=== PATIENT | male | born 1940 | race Caucasian/White ===

== ENCOUNTER → 2017-04-09 | Outpatient (CLI) | payer OTHER ==
[~2017-04-09] MED LIST: ATV1 PO; CMD5 PO; DICY10CA55 PO; ERYTHROMYCIN 2% TOP; GLUTAMINE PO; HYOS1TAB SL; LPR25 PO; LVT/20 PO; PANT40TA PO; RAPAFLO PO; RMR15 PO; TRIA3AER NAE; ZOLP10TA PO; [UNRECOGNIZED DRUG - OTHER] PO; align PO
[2017-04-09 14:36] LABS: PROSTATE SPECIFIC ANTIGEN 3.16 ng/ml (0.000-4.000)
== END | disposition home or self-care (01) ==
LOC: C.LABBC 11:05
PROVIDERS: ATTEND Urology
DX: N40.1 Benign prostatic hyperplasia with lower urinary tract symptoms (principal); R31.0 Gross hematuria; N20.0 Calculus of kidney

== ENCOUNTER 2018-12-01 08:22 | Inpatient (IN) ==
--- NOTE | 2018-11-12 14:42 | PAT Medication Instructions ---
Medication Instructions Date of Service November 12, 2018 Home Medications albuterol sulfate [ProAir HFA] 1 puff INHALATION Q6H PRN allopurinol [Zyloprim] 100 mg PO QAM atorvastatin [Lipitor] 10 mg PO QAM bupropion HCl [Wellbutrin XL] 150 mg PO HS bupropion HCl [Wellbutrin XL] 300 mg PO QAM doxycycline hyclate 50 mg PO HS furosemide 20 mg PO DAILY PRN lorazepam [Ativan] 0.5 mg PO BID PRN meclizine 25 mg PO QAM melatonin 5 mg PO HS metoprolol succinate [Toprol XL] 25 mg PO QAM mometasone [Nasonex] 2 spray INTRANASAL DAILY nortriptyline 20 mg PO HS pantoprazole [Protonix] 40 mg PO QAM potassium chloride 10 meq PO DAILY PRN tamsulosin [Flomax] 0.4 mg PO HS warfarin 2.5 mg PO 3XWK warfarin 5 mg PO 4XWK ASK your prescriber and surgeon warfarin 2.5 mg PO 3XWK warfarin 5 mg PO 4XWK DO NOT take the morning of surgery furosemide 20 mg PO DAILY PRN potassium chloride 10 meq PO DAILY PRN Take morning of surgery With a small sip of water, OTHERWISE NOTHING TO EAT OR DRINK AFTER MIDNIGHT: albuterol sulfate [ProAir HFA] 1 puff INHALATION Q6H PRN (use if needed; please bring with you to hospital day of surgery if possible) allopurinol [Zyloprim] 100 mg PO QAM atorvastatin [Lipitor] 10 mg PO QAM bupropion HCl [Wellbutrin XL] 300 mg PO QAM lorazepam [Ativan] 0.5 mg PO BID PRN (if needed) meclizine 25 mg PO QAM metoprolol succinate [Toprol XL] 25 mg PO QAM mometasone [Nasonex] 2 spray INTRANASAL DAILY pantoprazole [Protonix] 40 mg PO QAM Take evening before surgery albuterol sulfate [ProAir HFA] 1 puff INHALATION Q6H PRN (if needed) bupropion HCl [Wellbutrin XL] 150 mg PO HS doxycycline hyclate 50 mg PO HS furosemide 20 mg PO DAILY PRN (if needed) lorazepam [Ativan] 0.5 mg PO BID PRN (if needed) melatonin 5 mg PO HS nortriptyline 20 mg PO HS potassium chloride 10 meq PO DAILY PRN (if needed) tamsulosin [Flomax] 0.4 mg PO HS Other Notes If you have any questions please call us at [phone] or [phone] or [phone] or [phone]
--- NOTE | 2018-11-13 10:38 | Anesthesiology Consultation ---
Date of Service November 13, 2018 Assessment & Plan (1) Encounter for pre-operative examination: - Check coags AM DOS (patient states advised by surgeon/presciber to hold warfarin 5 days prior to surgery) - Cardio= 07/16/18= Fixed apical defect on most recent stress test "unchanged compared to 2011." Discussed addition of lisinopril but states that since his BP has "been well controlled" that decision to not start. F/U 6 months. Chart Review Chart Review: Acceptable Risk for Surgery and Patient seen in Pre Admission Testing Teaching & Discussion Pre-Anesthesia Teaching/Discussion Notes: Instructed NPO after midnight before surgery,except medications with 15 cc of water. Medication instructions provided according to the PAT guidelines. History Surgery Operation Date: 12/01/18 07:00 Proposed Procedures p Right Total Knee Replacement - Dimas Ashby MD Height/Weight Height: 5 ft 11 in Weight: 113.2 kg Allergies Allergy/AdvReac Type Severity Reaction Status Date / Time No Known Allergies Allergy Unknown Verified 11/10/18 07:29 Medications Home Medications Medication Instructions Recorded Confirmed Last Taken albuterol sulfate [ProAir HFA] 1 puff INHALATION Q6H PRN 11/10/18 11/10/18 Unknown allopurinol [Zyloprim] 100 mg PO QAM 11/10/18 11/10/18 Unknown atorvastatin [Lipitor] 10 mg PO QAM 11/10/18 11/10/18 Unknown bupropion HCl [Wellbutrin XL] 150 mg PO 11/10/18 11/10/18 Unknown bupropion HCl [Wellbutrin XL] 300 mg PO QA 11/10/18 11/10/18 Unknown doxycycline hyclate 50 mg PO 11/10/18 11/10/18 Unknown furosemide 20 mg PO DAILY PRN 11/10/18 11/10/18 Unknown lorazepam [Ativan] 0.5 mg PO BID PRN 11/10/18 11/10/18 Unknown meclizine 25 mg PO QAM 11/10/18 11/10/18 Unknown melatonin 5 mg PO 11/10/18 11/10/18 Unknown metoprolol succinate [Toprol XL] 25 mg PO QA 11/10/18 11/10/18 Unknown mometasone [Nasonex] 2 spray INTRANASAL DAILY 11/10/18 11/10/18 Unknown nortriptyline 20 mg PO HS 11/10/18 11/10/18 Unknown pantoprazole [Protonix] 40 mg PO QAM 11/10/18 11/10/18 Unknown potassium chloride 10 meq PO DAILY PRN 11/10/18 11/10/18 Unknown tamsulosin [Flomax] 0.4 mg PO HS 11/10/18 11/10/18 Unknown warfarin 2.5 mg PO 3XWK 11/10/18 11/10/18 Unknown warfarin 5 mg PO 4XWK 11/10/18 11/10/18 Unknown Past Medical History Medical History Acne ON DOXYCYCLINE Anxiety Asthma STABLE Atrial fibrillation ON WARFARIN BPH (benign prostatic hyperplasia) Depression Diverticular disease DIVERTICULITIS S/P PERFORATION/COLON RESECTION (2005) GERD (gastroesophageal reflux disease) Gout Hearing deficit BILATERAL AIDES Hyperlipidemia Hypertension IBS (irritable bowel syndrome) LBBB (left bundle branch block) CHRONIC Obesity Osteoarthritis Sciatica Sleep apnea CPAP Vertigo Past Family History Family History Mother Family hx of colon cancer Family history of diabetes mellitus Past Surgical History Surgical History History of appendectomy History of bowel resection DIVERTICULITIS S/P PERFORATION/COLON RESECTION (2005) History of colonoscopy History of colostomy SUBSEQUENT REVERSAL History of colostomy reversal History of endoscopic sinus surgery History of esophagogastroduodenoscopy (EGD) History of tonsillectomy Past Anesthesia History No Hx of Anesthesia Complications and No Family Hx of Anesthesia Complications History of PONV No Motion Sickness Screening History of Motion Sickness: No Social History Smoking Status: Former smoker tobacco type: cigarettes Do You Dip or Chew Tobacco: No Smoking End Date: QUIT AT AGE 38; PRIOR 3/4PPD X 15+ YEARS Hx Alcohol Use: No Hx Substance Use: No substance use type: does not use Exercise / Class Metabolic Activity III < 4 Walking/Shop/Light housework Review of Systems Reflux controlled. Rare wheezing stable. Patient denies chest pain, shortness of breath, palpitations. Physical Exam Vital Signs VITALS B 108/70P P 82 TEMP 98.0 SP02 95%RA RESP 18 PHYSICAL Full neck and c-spine range of motion. Full TMJ range of motion. TMD 3 finger breaths Mallampati Score 2 Dentition: upper partial; several missing sides/molars on lower Lungs: very mild RLL inspiratory crackles Cardiac: regular rate and rhythm, no murmurs noted Spine: normal Carotid arteries: negative bruit Extremities: no edema Testing Electrocardiogram Date: 11/13/18 A. fib at 82bpm. LAD. LBBB. (hx chronic LBBB per cardio records) Chest X-Ray Date: 11/13/18 Cardiomegaly without acute process. Subsegmental bibasilar opacities suggest atelectasis. 5 mm right suprahilar opacity suggests pulmonary nodule versus summation density artifact (report sent to PCP) Echocardiogram Date: 01/14/18 LVEF 50-54%. Septal motion consistent with IVCD. Base/mid posterior/inferior wall HK. Remaining LV wall segments borderline HK. Mild LAE. Mild AR/TR/GA. PASP 38mmhg. Stress Test Date: 01/26/18 Type: nuclear Negative stress EKG. Small inferior apical infarct. Rhythm a. fib with PVC's versus aberrant conduction. Moderate LVD with inferior apical segment HK. EF 50%. 85% MPHR. Laboratory Results 11/13/18 10:55 11/13/18 10:55 Blood Type O Positive 11/13/18 10:55 Antibody Screen NEGATIVE 11/13/18 10:55 PT 30.7 Seconds (9.0-12.0) H 11/13/18 10:55 INR 3.3 (0.9-1.1) H 11/13/18 10:55 APTT 38.6 Seconds (21.0-31.0) H 11/13/18 10:55
--- NOTE | 2018-11-13 11:13 | XRay Report ---
XR chest Pre-admission PA/Lat HISTORY: 78 years-old Male pat preoperative exam. No acute chest complaints COMPARISON: Chest radiograph 11/11/2011 TECHNIQUE: PA and lateral views of the chest FINDINGS: Cardiac silhouette is enlarged, unchanged. 5 mm density about the right suprahilar distribution is li shannan secondary to summation density versus underlying pulmonary nodule. No pneumothorax or large pleu ral effusion. Mild right hemidiaphragm elevation with linear subsegmental bibasilar opacities. Degene rative changes of the shoulders and spine. IMPRESSION: 1. Cardiomegaly without acute process. 2. Subsegmental bibasilar opacities suggest atelectasis. 3. 5 mm right suprahilar opacity suggests pulmonary nodule versus summation density artifact. The above report was generated using voice recognition software. It may contain grammatical, syntax o r spelling errors. Electronically signed by: Balwinder Burgess M.D. 11/13/2018 11:11 AM
[2018-11-13 11:58] LABS: Basophils # (auto) 0.01 K/uL (0-0.2); Basophils % (auto) 0.2 %; Eosinophils # (auto) 0.19 K/uL (0-0.5); Eosinophils % (auto) 3.1 %; Hematocrit (blood only) 46.3 % (42-52); Hemoglobin 15.2 g/dL (14.0-18.0); Immature Granulocytes # (auto) 0.02 K/uL (0.00-0.02); Immature Granulocytes % (auto) 0.3 %; Lymphocytes # (auto) 1.26 K/uL (1.2-3.4); Lymphocytes % (auto) 20.8 %; Mean Corpuscular Hgb Conc 32.8 g/dL (32-36); Mean Corpuscular Volume 92.2 fL (80-100); Mean Platelet Volume 10.4 fL (7.4-10.4); Monocytes # (auto) 0.53 K/uL (0.11-0.59); Monocytes % (auto) 8.8 %; Neutrophils # (auto) 4.04 K/uL (1.4-6.5); Neutrophils % (auto) 66.8 %; Platelet Count 160 K/uL (130-400); RDW Coefficient of Variation 15.2 % (11.5-14.5); RDW Standard Deviation 51.1 fL (36.4-46.3); Red Blood Count 5.02 M/uL (4.7-6.1); White Blood Count 6.05 K/uL (4.8-10.8)
[2018-11-13 12:06] LABS: BUN Creatinine Ratio 15.3 (10-20); Calcium 8.6 mg/dl (8.5-10.1); Creatinine Clr Calc Pharmacy 59.6 ml/min; Est GFR (African American) 58.7; Est GFR (Non-African American) 50.6; Potassium 4.1 mmol/L (3.5-5.1)
[2018-11-13 12:17] LABS: INR 3.3 (0.9-1.1); Partial Thromboplastin Ratio 1.4; Partial Thromboplastin Time 38.6 Seconds (21.0-31.0); Prothrombin Time 30.7 Seconds (9.0-12.0)
--- NOTE | 2018-11-27 07:58 | History and Physical Report ---
DATE OF ADMISSION: 12/01/2018 CHIEF COMPLAINT: Persistent right knee pain and discomfort. HISTORY OF PRESENT ILLNESS: The patient is a 78-year-old gentleman who presents for surgical treatment of his right knee. He has got about a 2-year history of gradually increasing right knee pain and discomfort that has gradually just gotten worse over time. He had several aspirations and injections of a Delgadillo cyst which provided some temporary relief initially. This became less successful over time. He has been primarily managed by Dr. Posadas, primary care physician in [facility]. No history of surgery on this knee. The injections were successful initially, but last several shots have not helped more than a week or two. He describes mostly lateral sided pain. It is increased with weightbearing. It is affecting his quality of life. He would like to have this fixed. Of note, the patient has a history of atrial fibrillation on Coumadin, followed by Dr. Romero. PAST MEDICAL HISTORY: 1. Atrial fibrillation, on Coumadin. 2. Vertigo. 3. Irritable bowel syndrome. 4. Depression. 5. Sleep apnea. 6. Low back pain/sciatica. 7. Obesity. 8. Kidney stones. 9. BPH. PAST SURGICAL HISTORY: Previous surgeries include: 1. Appendectomy. 2. Bowel resection. ALLERGIES: DUST. CURRENT MEDICINES: Include: 1. Lisinopril. 2. Wellbutrin. 3. Protonix. 4. Ativan. 5. Clindamycin. 6. Meclizine. 7. Coumadin 5 mg 4 days per week and 2.5 mg 3 days a week. 8. Ivermectin. 9. Erythromycin pads. 10. Atorvastatin. 11. Toprol. 12. Nortriptyline 13. Flomax. 14. Lasix. 15. Potassium chloride. 16. Ativan. 17. Tobramycin. 18. ProAir. 19. Allopurinol. 20. Levsin. 21. Nasonex. 22. Melatonin. 23. Levitra. SOCIAL HISTORY: A 78-year-old male. 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 Rare alcohol intake. Quit smoking many years ago. FAMILY HISTORY: Noncontributory. REVIEW OF SYSTEMS: Negative for diabetes. Denies any chest pain or shortness of breath. No history of DVT or PE. He is on chronic Coumadin with an INR about 3.3. He is followed by Dr. Romero. PHYSICAL EXAMINATION: GENERAL: Physical examination shows a pleasant, middle-aged male. He looks to be in pretty good health. HEENT: Benign. NECK: Supple, no lymphadenopathy. LUNGS: Clear to auscultation. HEART: Regular rate and rhythm. ABDOMEN: Soft, nontender, nondistended. EXTREMITIES: Grossly neurovascularly intact except as follows: Examination of the right knee reveals the patient walks with a slight valgus alignment to his knee. He limps on the right side. He has got a small knee effusion. Range of motion is 5 to 125. There is no clinical instability. There is no pain with hip motion. He is neurologically intact. X-RAYS: X-ray of the right knee reviewed. It shows advanced right knee lateral compartment DJD. He has got complete loss of his lateral joint space, particularly in the 45-degree flexion films. This has progressed significantly over the past year. 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 He has failed conservative treatment. He would like to proceed with surgical treatment. PLAN: We are going to take him to the operating room and do right total knee replacement. The risks and benefits of this procedure were explained to the patient including but not limited to DVT, PE, , infection, neurological injury, vascular injury, bleeding problem, pain, limited range of motion, stiffness, failure to relieve the symptoms, incomplete relief of symptoms, need for further surgery in the future. The patient understands and desires to proceed. Informed consent was obtained. He has stopped his Coumadin 5 days preop. We will check a stat PT and INR the morning of surgery. We will place him back on Coumadin immediately postop. He also will need to take his beta juliette the morning of surgery. As far as discharge plans, he is planning to be discharged home using [facility] home health program.
[~2018-12-01 08:22] MED LIST changes: +ACETAMINOPHEN 500 MG TAB PO SCH; -ATV1 PO; +BUPIVACAINE 0.5 % 5 MG/1 ML PF 10ML VIAL ONE; +BUPIVACAINE LIPOSOME/PF 266 MG, BUPIVACAINE/EPINEPHRINE 50 ML, SODIUM CHLORIDE 0.9% 30 ... INFIL SCH; -CMD5 PO; -DICY10CA55 PO; -ERYTHROMYCIN 2% TOP; +FAMOTIDINE 20 MG TAB PO SCH; +GABAPENTIN 300 MG PO SCH; -GLUTAMINE PO; -HYOS1TAB SL; -LPR25 PO; +LR 500ML BOLUS, THEN 15ML/HR IV SCH; +LR 60ML/HR IV SCH; -LVT/20 PO; +METOCLOPRAMIDE HCL 10 MG TABLET PO SCH; -PANT40TA PO; -RAPAFLO PO; -RMR15 PO; +ROPIVACAINE 0.5% 5 MG/ML 30 ML VIAL ONE; -TRIA3AER NAE; -ZOLP10TA PO; -[UNRECOGNIZED DRUG - OTHER] PO; -align PO
--- NOTE | 2018-12-01 08:52 | History & Physical Bridge Note ---
Date of Service December 01, 2018 History & Physical Bridge Note I have examined the patient, reviewed the History & Physical and in the interval since the performance of the History & Physical I have noted the following changes of clinical significance: no changes noted
[2018-12-01 08:56] LABS: INR 1.1 (0.9-1.1); Partial Thromboplastin Time 26.2 Seconds (21.0-31.0); Prothrombin Time 11.3 Seconds (9.0-12.0)
[2018-12-01] MEDS ORDERED: fentaNYL citrate 100 MCG/2 ML VIAL ONE (09:49)
[2018-12-01] MEDS ORDERED: MIDAZOLAM HCL 1 MG/ML 2ML VIAL ONE ×3 (09:49→12:31)
[2018-12-01] MEDS ORDERED: PROPOFOL IV EMULSION 10 MG/ML 20 ML VIAL IV ONE (09:49)
[2018-12-01] MEDS ORDERED: ePHEDrine sulfate 50 MG/ML AMP IV PRN (09:59)
[2018-12-01] MEDS ORDERED: ONDANSETRON INJ 2 MG/ML 2 ML VIAL IV PRN ×2 (09:59→14:40)
[2018-12-01] MEDS ORDERED: fentaNYL citrate 100 MCG/2 ML VIAL IV PRN (09:59)
[2018-12-01] MEDS ORDERED: ATROPINE SULFATE 0.1 MG/ML 10ML SYR IV PRN (09:59)
[2018-12-01] MEDS ORDERED: SODIUM CHLORIDE 0.9% PF 50 ML VIAL ONE (10:49)
[2018-12-01] MEDS ORDERED: BUPIVACAINE LIPOSOME 1.3% 266 MG/20 ML VIAL ONE (10:49)
[2018-12-01] MEDS ORDERED: BUPIVACAINE 0.25% 30 ML VIAL ONE (10:50)
[2018-12-01] MEDS ORDERED: BACITRACIN INJ 50,000 UNIT VIAL ONE (10:50)
[2018-12-01] MEDS ORDERED: EPINEPHrine INJ 1 MG/ML AMP ONE (10:51)
[2018-12-01] MEDS ORDERED: PHENYLEPHRINE HCL 10 MG/ML VIAL ONE (11:03)
[2018-12-01] MEDS: CEFAZOLIN 2000MG 2,000 MG/15 ML SYR IV SCH ×2 (11:07→20:30)
--- NOTE | 2018-12-01 12:51 | Post Operative Brief Note ---
Immediate Post Op Note v1 Date of Surgery December 01, 2018 Pre & Post Diagnosis Operation Date: 12/01/18 10:40 Pre-Op Diagnosis: Right Knee Degenerative Joint Disease Post-Op Diagnosis: Right Knee Degenerative Joint Disease Procedure Operation Date: 12/01/18 10:40 Actual Procedures p Right Total Knee Replacement(Right) - Dimas Ashby MD Surgeon Dimas Ashby MD Leadership Intern Robel, PAC Estimated Blood Loss 50 Findings Consistent with Post-Op Diagnosis Fluids 1600 cc Specimens Right Knee Drains [place] Catheter (16 divehi inserted by Moo Huston PA-C without difficulty. Clear yellow urine obtained, Anesthesia to monitor output) Anesthesia Type Spinal MAC Complications none Disposition Accompanied Patient To Recovery: No Disposition: Recovery Room
--- NOTE | 2018-12-01 13:18 | XRay Report ---
XR knee RT 2V routine CLINICAL HISTORY: Surgical Post Op COMPARISON: Right knee radiographs November 02, 2018. FINDINGS: Alignment of the total right knee arthroplasty is anatomic. No fracture or unexpected radi opaque foreign body. Skin regulo are present. IMPRESSION: Expected findings following total right knee arthroplasty. Electronically signed by: Judah Dodd M.D. 12/01/2018 1:17 PM
--- NOTE | 2018-12-01 14:20 | Anesthesiology Progress Note ---
Date of Service December 01, 2018 Anesthesia Post Procedure Vital Signs Vital Signs: Temp Pulse Pulse Pulse Resp BP BP 12/01/18 14:13 65 16 103/65 12/01/18 14:11 68 13 12/01/18 14:10 69 14 12/01/18 14:06 63 19 97/57 L 12/01/18 14:05 64 13 12/01/18 14:03 37.4 C 12/01/18 14:02 64 14 12/01/18 14:01 68 16 94/64 L 12/01/18 14:00 72 16 12/01/18 13:56 65 16 92/57 L 12/01/18 13:55 65 15 12/01/18 13:52 66 18 95/57 L 12/01/18 13:51 69 17 80/58 L 12/01/18 13:50 70 17 12/01/18 13:46 73 15 95/57 L 12/01/18 13:45 66 15 12/01/18 13:41 66 17 82/57 L 12/01/18 13:40 68 14 12/01/18 13:36 64 14 96/58 L 12/01/18 13:35 69 16 12/01/18 13:32 67 15 12/01/18 13:31 64 14 90/53 L 12/01/18 13:30 71 14 12/01/18 13:28 69 14 82/62 L 12/01/18 13:27 65 15 82/58 L 12/01/18 13:26 70 15 90/51 L 12/01/18 13:25 70 14 12/01/18 13:21 65 14 100/62 12/01/18 13:20 68 16 12/01/18 13:16 67 15 91/61 L 12/01/18 13:15 76 17 12/01/18 13:11 66 18 92/62 L 12/01/18 13:10 67 17 12/01/18 13:06 69 13 89/63 L 12/01/18 13:05 74 19 12/01/18 13:01 71 21 102/66 12/01/18 13:00 74 19 12/01/18 12:57 37.8 C H 74 74 20 98/54 L 98/54 L 12/01/18 09:03 37.1 C 91 H 16 115/69 Pulse Ox 12/01/18 14:13 95 12/01/18 14:11 96 12/01/18 14:10 96 12/01/18 14:06 96 12/01/18 14:05 96 12/01/18 14:03 96 12/01/18 14:02 96 12/01/18 14:01 96 12/01/18 14:00 97 12/01/18 13:56 96 12/01/18 13:55 96 12/01/18 13:52 96 12/01/18 13:51 96 12/01/18 13:50 96 12/01/18 13:46 96 12/01/18 13:45 96 12/01/18 13:41 95 12/01/18 13:40 95 12/01/18 13:36 96 12/01/18 13:35 96 12/01/18 13:32 96 12/01/18 13:31 96 12/01/18 13:30 96 12/01/18 13:28 96 12/01/18 13:27 96 12/01/18 13:26 96 12/01/18 13:25 95 12/01/18 13:21 96 12/01/18 13:20 96 12/01/18 13:16 96 12/01/18 13:15 96 12/01/18 13:11 98 12/01/18 13:10 97 12/01/18 13:06 99 12/01/18 13:05 96 12/01/18 13:01 97 12/01/18 13:00 96 12/01/18 12:57 97 12/01/18 09:03 95 Pain Intensity Left Back: Pain Intensity: 4 Right Knee: Pain Intensity: 0 Notes Mental Status: alert / awake / arousable and participated in evaluation Nausea / Vomiting: adequately controlled Pain: adequately controlled Airway Patency, RR, SpO2: stable & adequate BP & HR: stable & adequate Hydration State: stable & adequate Neuraxial Anesthesia: was administered and sensory block is resolving Anesthetic Complications: no major complications apparent
[2018-12-01] MEDS ORDERED: TAMSULOSIN HCL 0.4 MG CAP PO PRN (14:40)
[2018-12-01] MEDS ORDERED: POTASSIUM CHLORIDE 10 MEQ TABCR PO PRN (14:40)
[2018-12-01] MEDS ORDERED: METOCLOPRAMIDE HCL INJ 5 MG/ML 2 ML VIAL IV PRN (14:40)
[2018-12-01] MEDS ORDERED: NALOXONE HCL 0.4 MG/1 ML VIAL/CARP IV PRN (14:40)
[2018-12-01] MEDS ORDERED: ALBUTEROL HFA INHALER 8.5 GM INH PRN (14:40)
[2018-12-01] MEDS ORDERED: ALUMINUM/MAGNESIUM SUSP 30 ML UDC PO PRN (14:40)
[2018-12-01] MEDS ORDERED: FUROSEMIDE 20 MG TAB PO PRN (14:40)
[2018-12-01] MEDS ORDERED: BISACODYL 10 MG SUPP PR PRN (14:40)
[2018-12-01] MEDS ORDERED: MAGNESIUM HYDROXIDE SUSP 30 ML UDC PO PRN (14:40)
[2018-12-01] MEDS ORDERED: LORazepam 0.5 MG TAB PO PRN (14:40)
[2018-12-01] MEDS: ACETAMINOPHEN 500 MG TAB PO SCH ×2 (15:15→22:07)
[2018-12-01] MEDS: SODIUM CHLORIDE 0.9% 1000ML 1,000 ML IV SCH (15:15)
[2018-12-01] MEDS ORDERED: WARFARIN SOD 10 MG TAB PO ONE (16:00)
--- NOTE | 2018-12-01 16:17 | Cardiology Consultation ---
Date of Consultation December 01, 2018 Assessment & Plan (1) Atrial fibrillation: The patient will need to be placed back on his anticoagulation before discharge. (2) S/P TKR (total knee replacement): Patient had a successful surgery today without sequela. (3) LBBB (left bundle branch block): (4) Hypertension: History of Present Illness Attending Physician: Dimas Ashby MD History of Present Illness This is a 78-year-old male patient with history of chronic atrial fibrillation, left bundle branch block and a perfusion abnormality seen on nuclear stress testing in 2011 and again in 2018 at the apex of the heart. He was recently seen by Dr. Romero who did a risk assessment for total knee replacement. The patient had that surgery completed today. He is still under the effects of anesthesia but is hemodynamically stable and doing well. Allergies Allergy/AdvReac Type Severity Reaction Status Date / Time house dust Allergy Verified 12/01/18 08:49 Home Medications Home Medications Medication Instructions Recorded Confirmed Type albuterol sulfate [ProAir HFA] 1 puff INHALATION Q6H PRN 11/10/18 12/01/18 History allopurinol [Zyloprim] 100 mg PO QAM 11/10/18 12/01/18 History atorvastatin [Lipitor] 10 mg PO QAM 11/10/18 12/01/18 History bupropion HCl [Wellbutrin XL] 150 mg PO HS 11/10/18 12/01/18 History bupropion HCl [Wellbutrin XL] 300 mg PO QAM 11/10/18 12/01/18 History doxycycline hyclate 50 mg PO HS 11/10/18 12/01/18 History furosemide 20 mg PO DAILY PRN 11/10/18 12/01/18 History lorazepam [Ativan] 0.5 mg PO BID PRN 11/10/18 12/01/18 History meclizine 25 mg PO QAM 11/10/18 12/01/18 History melatonin 5 mg PO HS 11/10/18 12/01/18 History metoprolol succinate [Toprol XL] 25 mg PO QAM 11/10/18 12/01/18 History mometasone [Nasonex] 2 spray INTRANASAL DAILY 11/10/18 12/01/18 History nortriptyline 20 mg PO HS 11/10/18 12/01/18 History pantoprazole [Protonix] 40 mg PO QAM 11/10/18 12/01/18 History potassium chloride 10 meq PO DAILY PRN 11/10/18 12/01/18 History tamsulosin [Flomax] 0.4 mg PO HS 11/10/18 12/01/18 History warfarin 2.5 mg PO 3XWK 11/10/18 12/01/18 History warfarin 5 mg PO 4XWK 11/10/18 12/01/18 History Patient History Medical History Acne ON DOXYCYCLINE Anxiety Asthma STABLE Atrial fibrillation ON WARFARIN BPH (benign prostatic hyperplasia) Depression Diverticular disease DIVERTICULITIS S/P PERFORATION/COLON RESECTION (2005) GERD (gastroesophageal reflux disease) Gout Hearing deficit BILATERAL AIDES Hyperlipidemia Hypertension IBS (irritable bowel syndrome) Osteoarthritis Sciatica Sleep apnea CPAP Vertigo LBBB (left bundle branch block) CHRONIC Obesity Surgical History History of appendectomy History of bowel resection DIVERTICULITIS S/P PERFORATION/COLON RESECTION (2005) History of colonoscopy History of colostomy SUBSEQUENT REVERSAL History of colostomy reversal History of endoscopic sinus surgery History of esophagogastroduodenoscopy (EGD) History of tonsillectomy Family History Mother Family hx of colon cancer Family history of diabetes mellitus Social History Preferred Language: Turkish Communication Ability: Effective Childcare Attendant Required: No Beliefs That Will Affect Care: None Current Living Situation: Significant Other Other Information That Helps Us Care for You: No Feels Safe at Home: Yes Safety Concerns: Feels Safe At This Time Smoking Status: Former smoker Hx Alcohol Use: No Hx Substance Use: No Review of Systems Review of Systems: See HPI for pertinent positives. All other 10 point review of systems are negative. Physical Exam Vital Signs (Past 24 Hours): Last Vital Signs Temp 36.7 C 12/01/18 14:25 Pulse 62 12/01/18 15:57 Resp 16 12/01/18 15:57 BP 100/62 12/01/18 15:57 Pulse Ox 98 12/01/18 14:55 Physical Exam: General: no acute distress and stated age Head: normocephalic, no masses, lesions, tenderness or abnormalities Eyes: conjunctiva are pink and non-injected, sclera clear Neck: supple, no adenopathy, no bruits, normal jugular venous pulse, no hepatojugular reflux Chest: normal shape and normal respiratory effort Lungs: clear to auscultation and percussion Cardiac Exam: - regular rate & rhythm, no murmurs gallops or rubs - normal S1, normal S2 Pulses: 2(+) throughout Abdomen: abdomen soft, non-tender, no abnormal masses and no hepatosplenomegaly Musculoskeletal: no gait disturbance, no joint inflammation, no deforming arthritis Extremities: no edema and no cyanosis Neuro: grossly normal exam Results & Data Laboratory Results Laboratory Results - last 24 hr 12/01/18 08:36 PT 11.3 INR 1.1 APTT 26.2 PTT Ratio 1.0 Medications Administered Current Inpatient Medications Acetaminophen (Tylenol) 1,000 mg PO PREOP ALEKSANDRA Stop: 12/01/18 18:00 Last Admin: 12/01/18 09:35 Dose: 1,000 mg Documented by: Acetaminophen (Tylenol) 1,000 mg PO Q8 ALEKSANDRA Stop: 12/31/18 21:59 Last Admin: 12/01/18 15:15 Dose: 1,000 mg Documented by: Al Hydrox/Mg Hydrox/Simethicone (Maalox) 15 ml PO Q4H PRN PRN Reason: Heartburn Stop: 12/31/18 14:39 Albuterol (Proair Hfa) 1 puffs INH Q6H PRN PRN Reason: SOB/WHEEZING Stop: 12/31/18 14:39 Allopurinol (Zyloprim) 100 mg PO QAM ALEKSANDRA Stop: 01/01/19 08:59 Ascorbic Acid (Vitamin C) 500 mg PO BIDM ALEKSANDRA Stop: 12/31/18 16:59 Atorvastatin Calcium (Lipitor) 10 mg PO QAM [facility] Stop: 01/01/19 08:59 Bisacodyl (Dulcolax) 10 mg WA DAILY PRN PRN Reason: Constipation Stop: 12/31/18 14:39 Bupropion HCl (Wellbutrin-Xl) 150 mg PO HS [facility] Stop: 12/31/18 20:59 Bupropion HCl (Wellbutrin-Xl) 300 mg PO QAM ALEKSANDRA Stop: 01/01/19 08:59 Docusate Sodium (Colace) 100 mg PO BID ALEKSANDRA Stop: 12/31/18 20:59 Doxycycline Hyclate (Vibramycin) 50 mg PO HS ALEKSANDRA Stop: 12/31/18 20:59 Famotidine (Pepcid) 20 mg PO PREOP ALEKSANDRA Stop: 12/01/18 18:00 Last Admin: 12/01/18 09:36 Dose: 20 mg Documented by: Ferrous Gluconate (Ferrous Gluconate) 324 mg PO BIDM ALEKSANDRA Stop: 12/31/18 16:59 Fluticasone Propionate (Flonase) 2 sprays NA DAILY ALEKSANDRA Stop: 01/01/19 08:59 Furosemide (Lasix) 20 mg PO DAILY PRN PRN Reason: LEG SWELLING Stop: 12/31/18 14:39 Gabapentin (Neurontin) 300 mg PO PREOP ALEKSANDRA Stop: 12/01/18 18:00 Last Admin: 12/01/18 09:35 Dose: 300 mg Documented by: Hydromorphone HCl (Dilaudid) 0.5 mg IV Q4H PRN PRN Reason: Pain Stop: 12/15/18 14:39 Lactated Ringer's (Lr) 1,000 mls @ 60 mls/hr IV .[id number] ALEKSANDRA Stop: 12/01/18 22:39 Last Admin: 12/01/18 15:13 Dose: Not Given Documented by: Cefazolin Sodium (Ancef 2000mg) 2,000 mg in 15 mls @ 3.75 mls/min IV PREOP ALEKSANDRA; Protocol Stop: 12/02/18 05:59 Last Admin: 12/01/18 11:07 Dose: 3.75 mls/min Documented by: Bupivacaine Liposome 266 mg/Bupivacaine HCl/Epinephrine Bitart 50 ml/ Sodium Chloride 30 ml/ Syringe 100 mls @ 100 mls/hr INFIL PREOP ALEKSANDRA Stop: 12/01/18 18:00 Last Admin: 12/01/18 12:32 Dose: Not Given Documented by: Lactated Ringer's (Lr) 1,000 mls @ 15 mls/hr IV .Q24H ALEKSANDRA Stop: 12/01/18 18:00 Last Infusion: 12/01/18 11:11 Dose: Infused Documented by: Cefazolin Sodium (Ancef 2000mg) 2,000 mg in 15 mls @ 3.75 mls/min IV Q8H [facility]; Protocol Stop: 12/02/18 04:03 Sodium Chloride (Nss 1000ml) 1,000 mls @ 100 mls/hr IV .Q10H [facility] Stop: 12/02/18 06:00 Last Admin: 12/01/18 15:15 Dose: 100 mls/hr Documented by: Ketorolac Tromethamine (Toradol) 15 mg IV Q6 [facility] Stop: 12/02/18 12:01 Lorazepam (Ativan) 0.5 mg PO BID PRN PRN Reason: Anxiety Stop: 12/31/18 14:39 Magnesium Hydroxide (Milk Of Magnesia) 30 ml PO Q6H PRN PRN Reason: Constipation Stop: 12/31/18 14:39 [facility]ine [facility] ([facility]) [facility] [place] Stop: 01/01/19 08:59 Metoclopramide HCl (Reglan) 10 mg PO PREOP [facility] Stop: 12/01/18 18:00 Last Admin: 12/01/18 09:34 Dose: 10 mg Documented by: Metoclopramide HCl (Reglan) 10 mg IV Q6H PRN PRN Reason: Nausea And Vomiting Stop: 12/31/18 14:39 Metoprolol Succinate (Toprol Xl) 25 mg PO [facility] Stop: 01/01/19 08:59 Multivitamins (Multivitamin Tab) 1 tab PO [facility] Stop: 01/01/19 08:59 Naloxone HCl (Narcan) 0.1 mg IV Q5M PRN PRN Reason: Oversedation/Resp Depression Stop: 12/31/18 14:39 Nortriptyline HCl (Pamelor) 20 mg PO [facility] Stop: 12/31/18 20:59 Ondansetron HCl (Zofran) 4 mg IV Q6H PRN PRN Reason: Nausea And Vomiting Stop: 12/31/18 14:39 Pantoprazole Sodium (Protonix) [facility] [place] Stop: 01/01/19 08:59 Potassium Chloride (Klor-Con M10) 10 meq PO DAILY PRN PRN Reason: LEG SWELLING Stop: 12/31/18 14:39 Sennosides (Senokot) 17.2 mg PO [facility] Stop: 12/31/18 20:59 Tamsulosin HCl (Flomax) 0.4 mg PO [facility] Stop: 12/31/18 20:59 Tramadol HCl (Ultram) 50 - 100 mg PO Q4H PRN PRN Reason: Pain Stop: 12/31/18 14:39
[2018-12-01] MEDS: ASCORBIC ACID 500 MG TAB PO SCH (17:55)
[2018-12-01] MEDS: KETOROLAC TROMETHAMINE 15 MG/ML VIAL IV SCH ×2 (17:55→23:46)
[2018-12-01] MEDS: FERROUS GLUCONATE 324 MG TAB PO SCH (17:55)
[2018-12-01] MEDS: TRAMADOL HCL 50 MG TABLET PO PRN (19:20)
[2018-12-01] MEDS: DOCUSATE SODIUM 100 MG CAP PO SCH (20:30)
[2018-12-01] MEDS: SENNA 8.6 MG TAB PO SCH (20:30)
[2018-12-01] MEDS: DOXYCYCLINE HYCLATE 50 MG CAP PO SCH (20:30)
[2018-12-01] MEDS: NORTRIPTYLINE HCL 10 MG CAP PO SCH (20:30)
[2018-12-01] MEDS: TAMSULOSIN HCL 0.4 MG CAP PO SCH (20:30)
[2018-12-01] MEDS: BuPROPion XL 150 MG TABCR PO SCH (20:31)
[2018-12-01] MEDS ORDERED: NON-FORMULARY MEDICATION (Melatonin 5 MG) PO SCH (21:00)
[2018-12-01] MEDS: HYDROmorphone INJ 0.5 MG/0.5 ML SYR IV PRN (21:05)
--- NOTE | 2018-12-01 23:58 | Operative Report ---
DATE OF OPERATION: 12/01/2018 SURGEON: Dimas Ashby MD MANAGER HYDRAULIC: EDE White PREOPERATIVE DIAGNOSIS: Right knee degenerative joint disease. POSTOPERATIVE DIAGNOSIS: Right knee degenerative joint disease. PROCEDURE PERFORMED: Right cemented posterior stabilized total knee arthroplasty. COMPLICATIONS: None. ESTIMATED BLOOD LOSS: 50 mL FLUID REPLACEMENT: 1700 mL crystalloid fluid replacement. TOURNIQUET TIME: 59 minutes at 300 mmHg. ANESTHESIA: Spinal with adductor canal block. DRAINS: None. SPECIMENS: Left knee sent for pathology. OPERATIVE INDICATIONS: The patient is a 78-year-old gentleman who has had a several year history of increasing right knee pain and discomfort that has gotten significantly worse over the past year. He has been through conservative care without adequate relief. He continues to be bothered by pain which is limiting his activities. He elected to proceed with surgical treatment. OPERATIVE FINDINGS: Operative findings were advanced right knee DJD. He had a valgus aligned knee. He has fairly extensive grade 4 changes of the lateral compartment. He had spotty grade 4 changes in the medial and patellofemoral compartments. He had a moderate knee joint effusion. OPERATIVE IMPLANTS: Operative implants consisted of: 1. Biomet Vanguard size 70 right posterior stabilized femoral component. 2. Biomet size 75 tibial tray. 3. A 12 mm posterior stabilized polyethylene insert. 4. A 31 x 8 all poly patella. OPERATIVE PROCEDURE: The patient taken to the Operating Room, identified and placed on the operating table in supine position. All contact areas were appropriately padded. IV antibiotics followed by anesthesia team. A spinal anesthetic and adductor canal block had been provided in the holding area. Hays catheter was placed in sterile fashion. Right thigh tourniquet was then placed and the right lower extremity was then prepped and draped in usual sterile fashion. The right leg was elevated and exsanguinated with Esmarch and tourniquet was placed at 300 mmHg. An anterior approach of the right knee was then performed through a longitudinal incision centered over the patella. Sharp dissection was carried through subcutaneous tissues down to the level of the extensor mechanism. Medial parapatellar arthrotomy incision was made. Some subperiosteal dissection was carried out medially. The fat pad was resected from beneath the patellar tendon. The lateral patellofemoral ligament was released. The patella was everted and knee was flexed. The osteophytes were taken off the distal femur. The ACL and PCL were then released and the distal femur and the tibia subluxated anteriorly. The external tibial alignment jig was then placed in the anterior face of the tibia and adjusted 14 mm medially. Proximal tibial cut was made to remove about 3-4 mm of bone from the medial side. The tibia was sized to a size 75. Attention was then drawn to the femur. The distal femur was entered with a sharp drill bit. Intramedullary canal was suctioned. A right 5 degree valgus cutting guide was placed. Distal femoral cutting block was pinned in place. Distal femoral cut was made to take an additional 3 mm of bone off the distal femur. The knee was brought out into full extension. I did a little pie crusting of the IT band in order to equalize the extension gap. Attention was then drawn to the size of the femur. The knee was once again flexed. The femoral sizer was placed and the femur was sized to a size 70. We did downsize this slightly. The AP cutting block was pinned parallel to the epicondylar axis, which was 4 degrees of external rotation. The anterior cut, anterior chamfer, posterior cut, posterior chamfer cuts were made. Box cutting guide was placed and adjusted slightly lateral and the box cut was made. The knee was flexed. The remnants of the medial and lateral menisci were excised. The osteophytes were taken off the posterior aspect of the femur. Trial femoral component was placed. The tibial tray was then pinned in maximum external rotation and drill and stem punch were used to create defect in proximal tibia for the tibial tray. The knee was then trialed and the 12 mm insert fit most appropriately. Attention was then drawn to the patella. The patella was cleaned of all soft tissues. Patella thickness measured 20 mm in thickness and was cut down to 13. It was sized to a size 31 patella. Lug holes were drilled for 31 patella. Lateral osteophyte was removed. Patella button was placed. Knee was taken through range of motion and patella tracked nicely with no thumbs test. Attention was then drawn toward placement of permanent components. All trial components removed. Bone plug was placed in the distal femur to limit blood loss. A double batch of Palacos G cement was mixed. A Biomet Vanguard size 70 right posterior stabilized femoral component, size 75 tibial tray, a 12 mm posterior stabilized polyethylene insert, and a 31 x 8 all poly patella then cemented in place. Knee was brought out into full extension until cement hardened. A final cement check was then performed. Pericapsular tissues were injected with a total of 100 mL of combination of 20 mL of Exparel, 30 mL of normal saline, 50 mL of 0.25% Marcaine with epinephrine. The patient did not receive any tranexamic acid due to his history of AFib. The tourniquet was then let down for final tourniquet time of 59 minutes. Hemostasis was assured with use of electrocautery. Extensor mechanism was then closed with a combination of #1 PDS suture and #1 Vicryl suture in [id number] fashion. Extensor mechanism was checked and found to be intact. Subcutaneous tissue was then closed with #2 Dexon suture in a buried interrupted fashion. Skin was closed with skin regulo. Leg was then cleaned, dried and a sterile dressing composed of Xeroform, 4 x 4's, sterile cast padding and Naman bandage were applied. The patient then transferred to the Recovery Room in stable condition. The patient tolerated the procedure well with no complication. All needle and sponge counts were correct at the end of the operation. I attest to the content of the Intraoperative Record and any orders documented therein. Any exception s are noted below.
[2018-12-02] MEDS: CEFAZOLIN 2000MG 2,000 MG/15 ML SYR IV SCH ×2 (03:59)
[2018-12-02] MEDS: TRAMADOL HCL 50 MG TABLET PO PRN ×3 (04:04→22:12)
[2018-12-02] MEDS: ACETAMINOPHEN 500 MG TAB PO SCH ×3 (05:17→22:11)
[2018-12-02] MEDS: KETOROLAC TROMETHAMINE 15 MG/ML VIAL IV SCH (05:17)
[2018-12-02] MEDS: SODIUM CHLORIDE 0.9% 1000ML 1,000 ML IV SCH (05:31)
[2018-12-02 06:18] LABS: Hematocrit (blood only) 38.3 % (42-52); Hemoglobin 12.8 g/dL (14.0-18.0); Mean Corpuscular Hgb Conc 33.4 g/dL (32-36); Mean Corpuscular Volume 91.8 fL (80-100); Mean Platelet Volume 10.3 fL (7.4-10.4); Platelet Count 136 K/uL (130-400); RDW Coefficient of Variation 15.5 % (11.5-14.5); Red Blood Count 4.17 M/uL (4.7-6.1); White Blood Count 7.28 K/uL (4.8-10.8)
[2018-12-02 06:31] LABS: INR 1.2 (0.9-1.1); Prothrombin Time 12.4 Seconds (9.0-12.0)
[2018-12-02 06:46] LABS: BUN Creatinine Ratio 18.5 (10-20); Calcium 7.5 mg/dl (8.5-10.1); Creatinine Clr Calc Pharmacy 51.3 ml/min; Est GFR (African American) 48.9; Est GFR (Non-African American) 42.2
--- NOTE | 2018-12-02 07:43 | Anesthesiology Progress Note ---
Date of Service December 02, 2018 Anesthesia Post Procedure Vital Signs Vital Signs: Temp Pulse Pulse Pulse Resp BP BP 12/02/18 04:00 36.9 C 83 18 118/76 12/01/18 22:58 36.6 C 80 18 118/74 12/01/18 19:52 36.7 C 87 18 110/71 12/01/18 17:27 36.6 C 63 18 113/69 12/01/18 16:56 68 16 99/62 L 12/01/18 15:57 62 16 100/62 12/01/18 14:55 66 18 93/60 L 12/01/18 14:25 36.7 C 66 20 98/62 L 12/01/18 14:13 65 16 103/65 12/01/18 14:11 68 13 12/01/18 14:10 69 14 12/01/18 14:06 63 19 97/57 L 12/01/18 14:05 64 13 12/01/18 14:03 37.4 C 12/01/18 14:02 64 14 12/01/18 14:01 68 16 94/64 L 12/01/18 14:00 72 16 12/01/18 13:56 65 16 92/57 L 12/01/18 13:55 65 15 12/01/18 13:52 66 18 95/57 L 12/01/18 13:51 69 17 80/58 L 12/01/18 13:50 70 17 12/01/18 13:46 73 15 95/57 L 12/01/18 13:45 66 15 12/01/18 13:41 66 17 82/57 L 12/01/18 13:40 68 14 12/01/18 13:36 64 14 96/58 L 12/01/18 13:35 69 16 12/01/18 13:32 67 15 12/01/18 13:31 64 14 90/53 L 12/01/18 13:30 71 14 12/01/18 13:28 69 14 82/62 L 12/01/18 13:27 65 15 82/58 L 12/01/18 13:26 70 15 90/51 L 12/01/18 13:25 70 14 12/01/18 13:21 65 14 100/62 12/01/18 13:20 68 16 03/26/19 13:16 67 15 91/61 L 12/01/18 13:15 76 17 12/01/18 13:11 66 18 92/62 L 12/01/18 13:10 67 17 12/01/18 13:06 69 13 89/63 L 12/01/18 13:05 74 19 12/01/18 13:01 71 21 102/66 12/01/18 13:00 74 19 12/01/18 12:57 37.8 C H 74 74 20 98/54 L 98/54 L 12/01/18 09:03 37.1 C 91 H 16 115/69 Pulse Ox 12/02/18 04:00 92 12/01/18 22:58 97 12/01/18 19:52 97 12/01/18 17:27 99 12/01/18 16:56 12/01/18 15:57 12/01/18 14:55 98 12/01/18 14:25 96 12/01/18 14:13 95 12/01/18 14:11 96 12/01/18 14:10 96 12/01/18 14:06 96 12/01/18 14:05 96 12/01/18 14:03 96 12/01/18 14:02 96 12/01/18 14:01 96 12/01/18 14:00 97 12/01/18 13:56 96 12/01/18 13:55 96 12/01/18 13:52 96 12/01/18 13:51 96 12/01/18 13:50 96 12/01/18 13:46 96 12/01/18 13:45 96 12/01/18 13:41 95 12/01/18 13:40 95 12/01/18 13:36 96 12/01/18 13:35 96 12/01/18 13:32 96 12/01/18 13:31 96 12/01/18 13:30 96 12/01/18 13:28 96 12/01/18 13:27 96 12/01/18 13:26 96 12/01/18 13:25 95 12/01/18 13:21 96 12/01/18 13:20 96 12/01/18 13:16 96 12/01/18 13:15 96 12/01/18 13:11 98 12/01/18 13:10 97 12/01/18 13:06 99 12/01/18 13:05 96 12/01/18 13:01 97 12/01/18 13:00 96 12/01/18 12:57 97 12/01/18 09:03 95 Pain Intensity Left Back: Pain Intensity: 4 Right Knee: Pain Intensity: 3 Notes Mental Status: alert / awake / arousable and participated in evaluation Patient Amnestic to Procedure: Yes Nausea / Vomiting: adequately controlled Pain: adequately controlled Airway Patency, RR, SpO2: stable & adequate BP & HR: stable & adequate Hydration State: stable & adequate Neuraxial Anesthesia: was administered and sensory block resolved Anesthetic Complications: no major complications apparent
[2018-12-02] MEDS: FLUTICASONE PROPIONATE NA SPR 16 GM BTL SCH (09:09)
[2018-12-02] MEDS: PANTOprazole 40 MG TAB PO SCH (09:10)
[2018-12-02] MEDS: FERROUS GLUCONATE 324 MG TAB PO SCH ×2 (09:10→16:57)
[2018-12-02] MEDS: BuPROPion XL 300 MG TABCR PO SCH (09:10)
[2018-12-02] MEDS: METOPROLOL SUCC 25MG EXT REL TAB PO SCH (09:10)
[2018-12-02] MEDS: ATORVASTATIN 10 MG TAB PO SCH (09:10)
[2018-12-02] MEDS: MECLIZINE HCL 25 MG TAB PO SCH (09:11)
[2018-12-02] MEDS: DOCUSATE SODIUM 100 MG CAP PO SCH ×2 (09:11→20:30)
[2018-12-02] MEDS: ASCORBIC ACID 500 MG TAB PO SCH ×2 (09:11→16:57)
[2018-12-02] MEDS: ALLOPURINOL 100 MG TAB PO SCH (09:11)
[2018-12-02] MEDS: MULTIVITAMIN TAB PO SCH (09:11)
--- NOTE | 2018-12-02 11:18 | Progress Note ---
DATE: 12/02/2018 SUBJECTIVE: A 78-year-old gentleman with history of AFib postop day 1 from a right knee replacement. Seems to be doing pretty well. Pain is controlled. No chest pain or shortness of breath. Not feeling dizzy or lightheaded. OBJECTIVE: VITAL SIGNS: Temperature is 36.8. Vital signs stable. GENERAL: Physical examination shows a pleasant, middle-aged male. He is sitting up in his bedside chair, eating breakfast and looks pretty comfortable. EXTREMITIES: Examination of the right leg reveals the dressing to be in place. It has been reenforced due to some bloody drainage. He can dorsiflex and plantarflex his foot appropriately. He is neurologically intact. LABORATORY DATA: His hemoglobin is 12.8. Hematocrit 38.3. Electrolytes are stable. Creatinine just slightly elevated. ASSESSMENT: A 78-year-old gentleman postop day 1 from right knee replacement, doing pretty well. His pain is reasonably well controlled. His creatinine has bumped up a little bit. PLAN: 1. DVT prophylaxis including thigh-high TEDs, SCDs, and back on his Coumadin. We are going to put him on some prophylactic Lovenox starting 24 hours postoperative until his Coumadin is more therapeutic. 2. PT/OT. Weightbear as tolerated. Right total knee protocol. 3. Pain control, doing pretty well with current pain regimen. We are going to stop his Toradol due to his elevated creatinine. 4. Disposition: Plan to discharge to home with some home health once adequately recovered.
[2018-12-02] MEDS: HYDROmorphone INJ 0.5 MG/0.5 ML SYR IV PRN ×2 (13:01→16:56)
[2018-12-02] MEDS: ENOXAPARIN INJ 30 MG/0.3 ML SYR SQ SCH (13:55)
[2018-12-02] MEDS ORDERED: WARFARIN SOD 7.5 MG TAB PO ONE (16:17)
[2018-12-02] MEDS: NORTRIPTYLINE HCL 10 MG CAP PO SCH (20:29)
[2018-12-02] MEDS: DOXYCYCLINE HYCLATE 50 MG CAP PO SCH (20:30)
[2018-12-02] MEDS: TAMSULOSIN HCL 0.4 MG CAP PO SCH (20:30)
[2018-12-02] MEDS: BuPROPion XL 150 MG TABCR PO SCH (20:30)
[2018-12-02] MEDS: SENNA 8.6 MG TAB PO SCH (20:30)
[2018-12-03] MEDS: ENOXAPARIN INJ 30 MG/0.3 ML SYR SQ SCH (01:29)
[2018-12-03 06:05] LABS: INR 1.9 (0.9-1.1); Prothrombin Time 18.2 Seconds (9.0-12.0)
[2018-12-03] MEDS: ACETAMINOPHEN 500 MG TAB PO SCH (06:27)
[2018-12-03 06:30] LABS: BUN Creatinine Ratio 18.8 (10-20); Calcium 8.2 mg/dl (8.5-10.1); Creatinine Clr Calc Pharmacy 67.1 ml/min; Est GFR (African American) 67.7; Est GFR (Non-African American) 58.4; Potassium 4.1 mmol/L (3.5-5.1)
--- NOTE | 2018-12-03 07:25 | Progress Note ---
DATE: 12/03/2018 SUBJECTIVE: A 78-year-old gentleman postop day 2 from a right knee replacement. He is doing pretty well. Pain is controlled. No chest pain or shortness of breath. Not feeling dizzy or lightheaded. OBJECTIVE: VITAL SIGNS: Temperature 36.8. Vital signs stable. GENERAL: Physical examination shows a pleasant elderly male. He is lying in bed and I had to wake him this morning. EXTREMITIES: Examination of the right leg reveals the leg to be well aligned. Dressing is clean, dry and intact. Calf is soft and supple. He is neurologically intact. LABORATORY DATA: His INR is 1.9 this morning. His creatinine is improved at 1.20. ASSESSMENT: A 78-year-old gentleman with history of AFib, postop day 2 from a right knee replacement, doing well. Creatinine is improved. His INR is almost therapeutic. PLAN: 1. DVT prophylaxis including thigh-high TEDs, SCDs, and Coumadin. We will keep him on his Lovenox in the hospital, but discharged him just on his normal dose of Coumadin. 2. PT/OT. Weight bear as tolerated. Right total knee protocol. 3. Pain control. Doing well with current pain regimen. 4. Elevated creatinine. Creatinine is back down to normal. Continue to encourage p.o. intake. 5. Disposition: Plan to discharge to home with some home health later today.
[2018-12-03] MEDS: PANTOprazole 40 MG TAB PO SCH (08:24)
[2018-12-03] MEDS: FERROUS GLUCONATE 324 MG TAB PO SCH (08:24)
[2018-12-03] MEDS: ALLOPURINOL 100 MG TAB PO SCH (08:24)
[2018-12-03] MEDS: METOPROLOL SUCC 25MG EXT REL TAB PO SCH (08:24)
[2018-12-03] MEDS: MULTIVITAMIN TAB PO SCH (08:24)
[2018-12-03] MEDS: MECLIZINE HCL 25 MG TAB PO SCH (08:25)
[2018-12-03] MEDS: ATORVASTATIN 10 MG TAB PO SCH (08:25)
[2018-12-03] MEDS: FLUTICASONE PROPIONATE NA SPR 16 GM BTL SCH (08:25)
[2018-12-03] MEDS: BuPROPion XL 300 MG TABCR PO SCH (08:25)
[2018-12-03] MEDS: ASCORBIC ACID 500 MG TAB PO SCH (08:26)
[2018-12-03] MEDS: DOCUSATE SODIUM 100 MG CAP PO SCH (08:26)
--- NOTE | 2018-12-03 09:57 | Cardiology Progress Note ---
Date of Service December 03, 2018 Assessment & Plan (1) Atrial fibrillation: (2) LBBB (left bundle branch block): (3) Hypertension: (4) S/P TKR (total knee replacement): Patient describes stable cardiac signs and symptoms. He is normovolemic on exam. Continue prior to hospital metoprolol, atorvastatin. Discharge on his chronic medications. He has been back on Coumadin and received 7.5 mg yesterday. Discharge with home physical therapy is planned for later today. The patient already has instructions from the [facility] anticoagulation clinic to resume his home routine with Coumadin dosing and he is aware of this. Subjective Chief complaint: Follow-up chronic atrial fibrillation, status post recent right knee replacement Subjective: Patient is performing physical therapy in the hallway when I had seen him. I examined him while he was resting in a wheelchair. He is in good spirits. He states his right knee pain is well controlled this morning. He denies any palpitations or unusual shortness of breath. He is in room 316 and is not on telemetry. Physical Exam Vital Signs (Past 24 Hours): Last Vital Signs Temp 37.2 C 12/03/18 09:12 Pulse 89 12/03/18 09:12 Resp 18 12/03/18 09:12 BP 121/68 12/03/18 09:12 Pulse Ox 94 12/03/18 09:12 Physical Exam: General: no acute distress and stated age Eyes: conjunctiva are pink and non-injected, sclera clear Neck: normal jugular venous pulse, no hepatojugular reflux Chest: normal shape and normal respiratory effort Lungs: clear to auscultation and percussion Cardiac Exam: -Irregular rhythm, rate controlled, no murmurs Abdomen: abdomen soft, non-tender, no abnormal masses and no hepatosplenomegaly Extremities: Mild right lower leg edema and his operative leg, right knee incision clean dry and intact with no erythema, he describes chronic right lower leg edema Neuro:awake, coversant, follows commands, no focal motor deficits Psych: appropriate affect and insight. Results & Data Laboratory Results INR this morning 12/03/18 is 1.9.
--- NOTE | 2018-12-14 17:26 | Discharge Summary ---
ADMITTING PHYSICIAN AND SURGEON: Dr. Dimas Ashby. ADMITTING DIAGNOSIS: Right knee degenerative joint disease. SURGERY PERFORMED: Right total knee arthroplasty. SECONDARY DIAGNOSES: Atrial fibrillation, vertigo, irritable bowel syndrome, depression, sleep apnea, low back pain, sciatica, obesity, kidney stones, BPH. CONSULTS: Dr. Romero cardiology for postoperative cardiac management. HISTORY AND PHYSICAL EXAMINATION: Well documented in the patient's chart. HOSPITAL COURSE: The patient was admitted on 12/01/2018 underwent total knee arthroplasty, tolerated the procedure well. There were no complications. He was transferred to the PACU postoperatively and later to the orthopedic for further care. He was given Ancef for antibiotic prophylaxis, LAUREN stockings, SCDs, Coumadin and Lovenox for DVT prophylaxis. Hemoglobin, hematocrit and vital signs were monitored during his hospital stay and remained stable. He did not require any blood transfusions. He was followed by the cardiology service throughout his hospital stay. There were no complications. By postoperative day 2 he was tolerating a regular diet, pain was controlled with oral pain medicine and he was participating in physical therapy. Postop day 2 he was discharged home, set up with home health services, given printed discharge instructions including new prescriptions for extra strength Tylenol and tramadol. Continue his home medications including warfarin, continue physical therapy. He is weightbearing as tolerated, LAUREN stockings. Follow up approximately 2 weeks postoperatively or sooner if there are any problems or concerns.
== END 2018-12-03 12:20 | disposition home health service (06) | DRG 470 ==
LOC: ASU 08:22 → 3E 13:03
DX: Z83.3 Family history of diabetes mellitus; N40.0 Benign prostatic hyperplasia without lower urinary tract symptoms; K21.9 Gastro-esophageal reflux disease without esophagitis; Z96.659 Presence of unspecified artificial knee joint; I10 Essential (primary) hypertension; Z79.01 Long term (current) use of anticoagulants; M17.11 Unilateral primary osteoarthritis, right knee; Z80.0 Family history of malignant neoplasm of digestive organs; Z87.891 Personal history of nicotine dependence; I44.7 Left bundle-branch block, unspecified; I48.91 Unspecified atrial fibrillation; K58.9 Irritable bowel syndrome, unspecified

== ENCOUNTER 2020-04-10 13:35 | Inpatient (IN) ==
--- OUTSIDE RECORDS SUMMARY | 2020-04-10 13:38 | External Medical Summary | Continuity of Care Document ---
:1940 Author Name Jean Farnsworth, Provider Address Unavailable Unavailable , Care Team Providers Name Role Phone Aman Farnsworth, Ziyad Unavailable [email or web address] Radha Rosa Unavailable [email or web address] Carolann Garces Unavailable [email or web address] NAVNEETALE HAYNES Unavailable Unavailable Unavailable Unavailable Unavailable Assessments Assessed Problems:Benign prostatic hyperplasia with lower urinary tract symptoms NephrolithiasisBenign prostatic hyperplasia with urinary obstructionIncomplete bladder emptying Problems Benign prostatic hypertrophy without urinary obstruction (60 0.00) (N40.0) Nephrolithiasis (592.0) (N20.0) Benign prostatic hyperplasia with urinary obstruction (600.0 1) (N40.1) Nephrolithiasis (592.0) (N20.0) Incomplete bladder emptying (788.21) (R33.9) Benign prostatic hyperplasia with lower urinary tract symptoms (600.01) (N40.1) Arthritis (716.90) (M19.90) Mental status change (780.97) (R41.82) Cerumen impaction (380.4) (H61.20) Palpitations (785.1) (R00.2) Hearing loss (389.9) (H91.90) Gross hematuria (599.71) (R31.0) Prostatitis (601.9) (N41.9) Chronic sinusitis (473.9) (J32.9) Irritable bowel syndrome (564.1) (K58.9) Functional Status Hearing loss Allergies and Adverse Reactions No Known Drug Allergies (Allergy) Dust (Allergy) Other (Allergy) Medications LORazepam 0.5 MG Oral Tablet Refills: 0 Pantoprazole Sodium 40 MG Oral Tablet Delayed Release Refills: 0 Metoprolol Tartrate 25 MG Oral Tablet Refills: 0 Nasacort AQ 55 MCG/ACT AERS Refills: 0 Nortriptyline HCl - 10 MG Oral Capsule Refills: 0 Vicodin HP TABS Refills: 0 Coumadin 5 MG Oral Tablet Refills: 0 Hyoscyamine Sulfate 0.125 MG Oral Tablet Disintegrating Refills: 0 metroNIDAZOLE 0.75 % External Gel Refills: 0 Erythromycin 2 % External Gel Refills: 0 Levitra 20 MG Oral Tablet Refills: 0 Allopurinol 100 MG Oral Tablet; TAKE 1 TABLET DAILY. NAZANIN Hallman Start: 28-Oct-2013 Quantity: 90 Refills: 3 Tamsulosin HCl - 0.4 MG Oral Capsule; TAKE 1 CAPSULE Bedtime NAZANIN Crowe Start: 23-Sep-2014 Quantity: 90 Refills: 1 Wellbutrin TABS Refills: 0 Tamsulosin HCl - 0.4 MG Oral Capsule; TAKE 1 CAPSULE Daily Daja Meng Start: 15-Apr-2017 Quantity: 90 Refills: 3 Procedures History of Sinus Surgery Status: Complet ed History of Small Bowel Resection Status: Completed History of Appendectomy Status: Complete d Immunizations Influenza Comments:Approx 012 Family History Mother Family history of Colon Cancer (V16.0) Status: Active Family history of Diabetes Mellitus (V18.0) Status: Active Unknown Family Member Family history of Nephrolithiasis Status: Active Commen ts: Family History Social History - Smoking Status Ex-smoker Interventions Follow-ups/ReferralsFollow-up visit in 1 year; Done: 28 Jul 2018Follow-up visit in 1 year; Done: 08 Jul 2018Uroflow Appt; Done: 08 Jul 2018 Plan of Treatment Planned Observations Planned Goals not documented Results No Known Results Results not documented Encounters Appointment; Ziyad Newton M.D. 24-Jun-2018 16:40 Encounter Diagnosis: Problem not documented
--- OUTSIDE RECORDS SUMMARY | 2020-04-10 13:39 | External Medical Summary | Continuity of Care Document ---
:1940 Author Name Jean Farnsworth, Provider Address Unavailable Unavailable , Care Team Providers Name Role Phone Aman Farnsworth, Ziyad Unavailable [email or web address] Radha Rosa Unavailable [email or web address] Carolann Garces Unavailable [email or web address] NAVNEETALE HAYNES Unavailable Unavailable Unavailable Unavailable Unavailable Assessments Assessed Problems:Benign prostatic hyperplasia with lower urinary tract symptoms NephrolithiasisBenign prostatic hyperplasia with urinary obstructionIncomplete bladder emptying Problems Irritable bowel syndrome (564.1) (K58.9) Chronic sinusitis (473.9) (J32.9) Prostatitis (601.9) (N41.9) Gross hematuria (599.71) (R31.0) Hearing loss (389.9) (H91.90) Palpitations (785.1) (R00.2) Cerumen impaction (380.4) (H61.20) Mental status change (780.97) (R41.82) Arthritis (716.90) (M19.90) Nephrolithiasis (592.0) (N20.0) Benign prostatic hyperplasia with lower urinary tract symptoms (600.01) (N40.1) Incomplete bladder emptying (788.21) (R33.9) Nephrolithiasis (592.0) (N20.0) Benign prostatic hyperplasia with urinary obstruction (600.0 1) (N40.1) Benign prostatic hypertrophy without urinary obstruction (60 0.00) (N40.0) Functional Status Hearing loss Allergies and Adverse [...]
[2020-04-10 13:44] VITALS: O2SAT 97
[2020-04-10 14:46] LABS: Basophils # (auto) 0.01 K/uL (0-0.2); Basophils % (auto) 0.2 %; Eosinophils # (auto) 0.22 K/uL (0-0.5); Eosinophils % (auto) 3.5 %; Hematocrit (blood only) 46.7 % (42-52); Hemoglobin 15.7 g/dL (14.0-18.0); Immature Granulocytes # (auto) 0.01 K/uL (0.00-0.02); Immature Granulocytes % (auto) 0.2 %; Lymphocytes # (auto) 1.67 K/uL (1.2-3.4); Lymphocytes % (auto) 26.5 %; Mean Corpuscular Hemoglobin 30.4 pg (25-34); Mean Corpuscular Hgb Conc 33.6 g/dL (32-36); Mean Corpuscular Volume 90.5 fL (80-100); Mean Platelet Volume 10.3 fL (7.4-10.4); Monocytes # (auto) 0.39 K/uL (0.11-0.59); Monocytes % (auto) 6.2 %; Neutrophils # (auto) 4.01 K/uL (1.4-6.5); Neutrophils % (auto) 63.4 %; Platelet Count 159 K/uL (130-400); RDW Coefficient of Variation 15.4 % (11.5-14.5); RDW Standard Deviation 51.6 fL (36.4-46.3); Red Blood Count 5.16 M/uL (4.7-6.1); White Blood Count 6.31 K/uL (4.8-10.8)
--- NOTE | 2020-04-10 14:56 | CT Scan Report ---
CT head/brain wo con CT DOSE: 614.27 mGy.cm HISTORY: Mental status change. Trauma. ams fall on couamdin ro ich TECHNIQUE: Multiaxial CT images of the head were performed without the use of intravenous contrast. A dose lowering technique was utilized adhering to the principles of ALARA. Comparison: 07/12/2016 Findings: Moderate mucosal thickening of the maxillary sinuses. The remaining sinuses are clear. Moderate cerebellar atrophy. Ventricular system is midline. No evidence for acute intracranial hemorr hebert. The calvarium and skull base are intact. The ventricles and sulci are within normal limits. The re is no mass, hematoma, midline shift, or acute infarct. Impression: Chronic and pre-existing change. No acute process. ACT 112: Negative or not required by law. The above report was generated using voice recognition software. It may contain grammatical, syntax or spelling errors. Electronically signed by: Russ Colbert M.D. 04/10/2020 2:55 PM
[2020-04-10 15:01] LABS: Albumin Level 3.2 gm/dl (3.4-5.0); BUN Creatinine Ratio 16.8 (10-20); Calcium 8.5 mg/dl (8.5-10.1); Creatinine Clr Calc Pharmacy 53.4 ml/min; Est GFR (Non-African American) 45.7
[2020-04-10 15:12] LABS: Albumin Globulin Ratio 0.8 (0.9-2); Bilirubin,Total 0.6 mg/dl (0.2-1); Globulin 4.2 gm/dl (2.5-4.0); Thyroid Stimulating Hormone 1.66 uIu/ml (0.300-4.500); Total Protein 7.4 gm/dl (6.4-8.2)
[2020-04-10 15:17] LABS: INR 3.3 (0.9-1.1); Partial Thromboplastin Ratio 1.6; Prothrombin Time 32.5 Seconds (9.0-12.0)
[2020-04-10 15:18] LABS: Acetaminophen < 2 ug/ml (10-30); Salicylate < 1.7 mg/dl (2.8-20)
[2020-04-10 15:26] LABS: Appearance Urine Clear (Clear); Bilirubin Urine Negative (Negative); Blood Urine Negative (Negative); Color Urine Yellow; Glucose Urine UA Negative (Negative); Ketones Urine Negative (Negative); Leukocyte Esterase Urine Negative (Negative); Nitrite Urine Negative (Negative); Protein Urine Negative (Negative); Specific Gravity Urine 1.015 (1.000-1.030); Urobilinogen Urine Negative (Negative)
[2020-04-10 15:51] LABS: Amphetamines+Metham, Urine Neg (Neg); Barbiturates, Urine Neg (Neg); Benzodiazepine, Urine Neg (Neg); Cocaine, Urine Neg (Neg); MDMA (Ecstacy), Urine Pos (Neg); Methadone, Urine Neg (Neg); Opiate, Urine Neg (Neg); Phencyclidine, Urine Neg (Neg)
[2020-04-10] MEDS ORDERED: MEMANTINE HCL 10 MG TAB PO STA (16:09)
--- NOTE | 2020-04-10 16:09 | Emergency Department Note ---
History of Present Illness General Chief complaint: Mental Health Evaluation Stated complaint: DEPRESSION,ANXIETY Time Seen by Provider: 04/10/20 13:45 History of Present Illness Provider complaint: Depression/suicidal ideation 79-year-old male presents emergency department with depression and suicidal ideation. 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 He reports he has been having thoughts of killing himself by shooting himself with a gun or driving his car into a tree. Patient does report he owns to firearms that he has access to. He denies any difficulty sleeping. He does report loss of interest in things that used to give him valerie. He also reports difficulty concentrating. He denies feeling guilty about anything changes in energy or changes in appetite. Patient does have a history of depression. He states he is currently interested in inpatient treatment. He does state that he fell recently and is on Coumadin. Home Medications Home Medications Medication Instructions Recorded Confirmed Type albuterol sulfate [ProAir HFA] 1 puff INHALATION Q4H PRN 11/10/18 04/10/20 His tory allopurinol [Zyloprim] 100 mg PO DAILY 11/10/18 04/10/20 History bupropion HCl [Wellbutrin XL] 300 mg PO DAILY 11/10/18 04/10/20 History furosemide 20 mg PO DAILY PRN 11/10/18 04/10/20 History lorazepam [Ativan] 0.5 mg PO TID PRN 11/10/18 04/10/20 History meclizine 25 mg PO TID 11/10/18 04/10/20 History melatonin 5 mg PO HS 11/10/18 04/10/20 History metoprolol succinate [Toprol XL] 25 mg PO QAM 11/10/18 04/10/20 History nortriptyline 20 mg PO HS 11/10/18 04/10/20 History pantoprazole [Protonix] 20 mg PO QAM 11/10/18 04/10/20 History tamsulosin [Flomax] 0.4 mg PO HS 11/10/18 04/10/20 History warfarin 5 mg PO DAILY 11/10/18 04/10/20 History bupropion HCl 150 mg PO DAILY 04/10/20 04/10/20 History clindamycin phosphate 1 % TOPICAL DAILY PRN 04/10/20 04/10/20 History doxycycline hyclate 50 mg PO DAILY 04/10/20 04/10/20 History erythromycin with ethanol [Mckinley 1 applic TOPICAL DAILY 04/10/20 04/10/20 History Pads] escitalopram oxalate 20 mg PO DAILY 04/10/20 04/10/20 History fluticasone propionate 50 mcg INTRANASAL DAILY 04/10/20 04/10/20 History hyoscyamine sulfate 0.125 mg PO Q4H PRN 04/10/20 04/10/20 History ivermectin 1 % TOPICAL DAILY PRN 04/10/20 04/10/20 History memantine 10 mg PO BID 04/10/20 04/10/20 History vardenafil 20 mg PO DAILY PRN MDD 20 mg 04/10/20 04/10/20 History Allergies Allergy/AdvReac Type Severity Reaction Status Date / Time house dust Allergy Verified 12/01/18 08:49 Past Med/Surg History Medical History Acne ON DOXYCYCLINE Anxiety Asthma STABLE Atrial fibrillation ON WARFARIN BPH (benign prostatic hyperplasia) Depression Diverticular disease DIVERTICULITIS S/P PERFORATION/COLON RESECTION (2005) GERD (gastroesophageal reflux disease) Gout Hearing deficit BILATERAL AIDES Hyperlipidemia Hypertension IBS (irritable bowel syndrome) LBBB (left bundle branch block) CHRONIC Obesity Osteoarthritis Sciatica Sleep apnea CPAP Vertigo Surgical History History of appendectomy History of bowel resection DIVERTICULITIS S/P PERFORATION/COLON RESECTION (2005) History of colonoscopy History of colostomy SUBSEQUENT REVERSAL History of colostomy reversal History of endoscopic sinus surgery History of esophagogastroduodenoscopy (EGD) History of tonsillectomy Family History Mother Family hx of colon cancer Family history of diabetes mellitus Social History Smoking Status: Former smoker Second Hand Exposure: No; Hx Alcohol Use: No Hx Substance Use: No Preferred Language: Syriac Communication Ability: Effective Senior Research Executive Required: No Beliefs That Will Affect Care: None Current Living Situation: Significant Other Feels Safe at Home: Yes Review of Systems A total of 10 systems reviewed and were otherwise negative Physical Exam Vital Signs Vital Signs - 24 hr 04/10/20 13:38 Temperature 36.6 C Temperature Source Oral Pulse Rate 81 Pulse Rhythm Regular Pulse Strength Normal Respiratory Rate 20 Respiratory Effort / Characteristics Non-Labored Spontaneous Respiratory Depth Normal Respiratory Pattern Regular Blood Pressure 139/89 Blood Pressure Mean 105 Blood Pressure Position Sitting Pulse Oximetry 97 Oxygen Delivery Method Room Air Sepsis Recent Fever Within 48 Hours No Sepsis New/Unexplained Change in Mental Status No Sepsis Action Taken by Nursing No Action Required Physical Exam GENERAL: Patient is tearful. HENT: Exam performed. - Head: Normocephalic and atraumatic. - Right Ear: External ear normal. No mastoid tenderness. - Left Ear: External ear normal. No mastoid tenderness. - Mouth/Throat: The oropharynx is clear and moist. No trismus in the jaw. No dental abscesses or uvula swelling. No oropharyngeal exudate or tonsillar abscesses. EYES: Conjunctivae and EOM are normal. Pupils are equal, round, and reactive to light. Right eye exhibits no discharge. Left eye exhibits no discharge. No scleral icterus. NECK: Normal range of motion. Neck supple. No JVD present. No spinous process tenderness present. No carotid bruit present. No rigidity. No tracheal deviation and normal range of motion present. No Brudzinski's sign and no Kernig's sign noted. CV: Normal rate, regular rhythm, normal heart sounds and intact distal pulses. There is no peripheral edema. Palpable radial pulses bue. PULM/CHEST: Effort normal and breath sounds normal. No respiratory distress. No stridor. He has no wheezes. He has no rales. - Chest Wall: He exhibits no tenderness. ABD: The abdomen is soft. Bowel sounds are normal. He has no distension. No mass is present. There is no tenderness. There is no rebound, no guarding, no Mcgee's sign and no tenderness at McBurney's point. Rovsig negative. MUSC/SKEL: Normal range of motion. There is no peripheral edema, tenderness or deformity. LYMPH: No cervical adenopathy. NEURO: He is alert and oriented to person, place, and time. He has normal strength. No cranial nerve deficit or sensory deficit. Coordination and gait normal. GCS eye subscore is 4. GCS verbal subscore is 5. GCS motor subscore is 6. Cerebellar tests wnl. SKIN: Skin is warm and dry. He is not diaphoretic. PSYCH: Patient is depressed. He does report suicidal ideation. Course Course 1345: The patient was evaluated in room A7. A complete history and physical exam was performed. 1530: Vital signs stable. INR is therapeutic given that he is on Coumadin. Imaging within normal limits. Patient medically cleared. Patient placed in observation at this time. 1806: Vital signs stable. I discussed with Dr. Mendez [phone] that the EKG shows no acute changes and no ischemic signs at this time. Patient denies any chest pain or difficulty breathing. She states that she will place orders for patient to be admitted to the psychiatric unit upstairs. Administered Medications Discontinued Medications Memantine (Namenda) 10 mg PO NOW STA Stop: 04/10/20 16:10 Last Admin: 04/10/20 16:22 Dose: 10 mg Documented by: [id number] Medical Decision Making Laboratory Data Result diagrams: 04/10/20 14:13 04/10/20 14:13 Lab Results 04/10/20 04/10/20 04/10/20 Range/Units 14:13 14:13 14:13 WBC 6.31 (4.8-10.8) K/uL RBC 5.16 (4.7-6.1) M/uL Hgb 15.7 (14.0-18.0) g/dL Hct 46.7 (42-52) % MCV 90.5 (80-100) fL MCH 30.4 (25-34) pg MCHC 33.6 (32-36) g/dL RDW Std Deviation 51.6 H (36.4-46.3) fL RDW Coeff of Henry 15.4 H (11.5-14.5) % Plt Count 159 (130-400) K/uL MPV 10.3 (7.4-10.4) fL Immature Gran % (Auto) 0.2 % Neut % (Auto) 63.4 % Lymph % (Auto) 26.5 % [place] % (Auto) 6.2 % Eos % (Auto) 3.5 % Baso % (Auto) 0.2 % Neut # (Auto) 4.01 (1.4-6.5) K/uL Lymph # (Auto) 1.67 (1.2-3.4) K/uL [place] # (Auto) 0.39 (0.11-0.59) K/uL Eos # (Auto) 0.22 (0-0.5) K/uL Baso # (Auto) 0.01 (0-0.2) K/uL Immature Gran # (Auto) 0.01 (0.00-0.02) K/uL PT (9.0-12.0) Seconds INR (0.9-1.1) APTT (21.0-31.0) Seconds PTT Ratio Sodium 140 (136-145) mmol/L Potassium 4.0 (3.5-5.1) mmol/L Chloride 109 H (98-107) mmol/L Carbon Dioxide 23 (21-32) mmol/L Anion Gap 8.0 (3-11) BUN 25 H (7-18) mg/dl Creatinine 1.46 H (0.6-1.4) mg/dl Est Cr Clr Drug Dosing 53.4 ml/min Est GFR ( Amer) 53.0 Est GFR (Non-Af Amer) 45.7 BUN/Creatinine Ratio 16.8 (10-20) Glucose 101 H (70-99) mg/dl Calcium 8.5 (8.5-10.1) mg/dl Total Bilirubin 0.6 (0.2-1) mg/dl AST 24 (15-37) U/L ALT 24 (12-78) U/L Alkaline Phosphatase 120 H (45-117) U/L Total Protein 7.4 (6.4-8.2) gm/dl Albumin 3.2 L (3.4-5.0) gm/dl Globulin 4.2 H (2.5-4.0) gm/dl Albumin/Globulin Ratio 0.8 L (0.9-2) TSH 1.660 (0.300-4.500) uIu/ml Urine Color Urine Appearance (Clear) Urine pH (4.5-7.5) Ur Specific [place] (1.000-1.030) Urine Protein (Negative) Urine Glucose (UA) (Negative) Urine Ketones (Negative) Urine Blood (Negative) Urine Nitrite (Negative) Urine Bilirubin (Negative) Urine Urobilinogen (Negative) Ur Leukocyte Esterase (Negative) Salicylates < 1.7 L (2.8-20) mg/dl Urine Opiates Screen (Neg) Ur Methadone, Qual (Neg) Acetaminophen < 2 L (10-30) ug/ml Urine Barbiturates (Neg) Ur Phencyclidine (PCP) (Neg) U Amphetamin/Meth Scrn (Neg) MDMA (Ecstasy) Screen (Neg) U Benzodiazepines Scrn (Neg) Ur Cocaine Metabolite (Neg) U Marijuana (THC) Screen (Neg) Ethyl Alcohol mg/dL (0-3) mg/dl 04/10/20 04/10/20 04/10/20 Range/Units 14:13 14:13 15:18 WBC (4.8-10.8) K/uL RBC (4.7-6.1) M/uL Hgb (14.0-18.0) g/dL Hct (42-52) % MCV (80-100) fL MCH (25-34) pg MCHC (32-36) g/dL RDW Std Deviation (36.4-46.3) fL RDW Coeff of Henry (11.5-14.5) % Plt Count (130-400) K/uL MPV (7.4-10.4) fL Immature Gran % (Auto) % Neut % (Auto) % Lymph % (Auto) % [place] % (Auto) % Eos % (Auto) % Baso % (Auto) % Neut # (Auto) (1.4-6.5) K/uL Lymph # (Auto) (1.2-3.4) K/uL [place] # (Auto) (0.11-0.59) K/uL Eos # (Auto) (0-0.5) K/uL Baso # (Auto) (0-0.2) K/uL Immature Gran # (Auto) (0.00-0.02) K/uL PT 32.5 H (9.0-12.0) Seconds INR 3.3 H (0.9-1.1) APTT 44.0 H (21.0-31.0) Seconds PTT Ratio 1.6 Sodium (136-145) mmol/L Potassium (3.5-5.1) mmol/L Chloride (98-107) mmol/L Carbon Dioxide (21-32) mmol/L Anion Gap (3-11) BUN (7-18) mg/dl Creatinine (0.6-1.4) mg/dl Est Cr Clr Drug Dosing ml/min Est GFR ( Amer) Est GFR (Non-Af Amer) BUN/Creatinine Ratio (10-20) Glucose (70-99) mg/dl Calcium (8.5-10.1) mg/dl Total Bilirubin (0.2-1) mg/dl AST (15-37) U/L ALT (12-78) U/L Alkaline Phosphatase (45-117) U/L Total Protein (6.4-8.2) gm/dl Albumin (3.4-5.0) gm/dl Globulin (2.5-4.0) gm/dl Albumin/Globulin Ratio (0.9-2) TSH (0.300-4.500) uIu/ml Urine Color Urine Appearance (Clear) Urine pH (4.5-7.5) Ur Specific [place] (1.000-1.030) Urine Protein (Negative) Urine Glucose (UA) (Negative) Urine Ketones (Negative) Urine Blood (Negative) Urine Nitrite (Negative) Urine Bilirubin (Negative) Urine Urobilinogen (Negative) Ur Leukocyte Esterase (Negative) Salicylates (2.8-20) mg/dl Urine Opiates Screen Neg (Neg) Ur Methadone, Qual Neg (Neg) Acetaminophen (10-30) ug/ml Urine Barbiturates Neg (Neg) Ur Phencyclidine (PCP) Neg (Neg) U Amphetamin/Meth Scrn Neg (Neg) MDMA (Ecstasy) Screen Pos H (Neg) U Benzodiazepines Scrn Neg (Neg) Ur Cocaine Metabolite Neg (Neg) U Marijuana (THC) Screen Neg (Neg) Ethyl Alcohol mg/dL < 3.0 (0-3) mg/dl 04/10/20 Range/Units 15:18 WBC (4.8-10.8) K/uL RBC (4.7-6.1) M/uL Hgb (14.0-18.0) g/dL Hct (42-52) % MCV (80-100) fL MCH (25-34) pg MCHC (32-36) g/dL RDW Std Deviation (36.4-46.3) fL RDW Coeff of Henry (11.5-14.5) % Plt Count (130-400) K/uL MPV (7.4-10.4) fL Immature Gran % (Auto) % Neut % (Auto) % Lymph % (Auto) % [place] % (Auto) % Eos % (Auto) % Baso % (Auto) % Neut # (Auto) (1.4-6.5) K/uL Lymph # (Auto) (1.2-3.4) K/uL [place] # (Auto) (0.11-0.59) K/uL Eos # (Auto) (0-0.5) K/uL Baso # (Auto) (0-0.2) K/uL Immature Gran # (Auto) (0.00-0.02) K/uL PT (9.0-12.0) Seconds INR (0.9-1.1) APTT (21.0-31.0) Seconds PTT Ratio Sodium (136-145) mmol/L Potassium (3.5-5.1) mmol/L Chloride (98-107) mmol/L Carbon Dioxide (21-32) mmol/L Anion Gap (3-11) BUN (7-18) mg/dl Creatinine (0.6-1.4) mg/dl Est Cr Clr Drug Dosing ml/min Est GFR ( Amer) Est GFR (Non-Af Amer) BUN/Creatinine Ratio (10-20) Glucose (70-99) mg/dl Calcium (8.5-10.1) mg/dl Total Bilirubin (0.2-1) mg/dl AST (15-37) U/L ALT (12-78) U/L Alkaline Phosphatase (45-117) U/L Total Protein (6.4-8.2) gm/dl Albumin (3.4-5.0) gm/dl Globulin (2.5-4.0) gm/dl Albumin/Globulin Ratio (0.9-2) TSH (0.300-4.500) uIu/ml Urine Color Yellow Urine Appearance Clear (Clear) Urine pH 5.0 (4.5-7.5) Ur Specific [place] 1.015 (1.000-1.030) Urine Protein Negative (Negative) Urine Glucose (UA) Negative (Negative) Urine Ketones Negative (Negative) Urine Blood Negative (Negative) Urine Nitrite Negative (Negative) Urine Bilirubin Negative (Negative) Urine Urobilinogen Negative (Negative) Ur Leukocyte Esterase Negative (Negative) Salicylates (2.8-20) mg/dl Urine Opiates Screen (Neg) Ur Methadone, Qual (Neg) Acetaminophen (10-30) ug/ml Urine Barbiturates (Neg) Ur Phencyclidine (PCP) (Neg) U Amphetamin/Meth Scrn (Neg) MDMA (Ecstasy) Screen (Neg) U Benzodiazepines Scrn (Neg) Ur Cocaine Metabolite (Neg) U Marijuana (THC) Screen (Neg) Ethyl Alcohol mg/dL (0-3) mg/dl Imaging Data Radiologist's Impression: CT head/brain wo con CT DOSE: 614.27 mGy.cm HISTORY: Mental status change. Trauma. ams fall on couamdin ro ich TECHNIQUE: Multiaxial CT images of the head were performed without the use of intravenous contrast. A dose lowering technique was utilized adhering to the principles of ALARA. Comparison: 07/12/2016 Findings: Moderate mucosal thickening of the maxillary sinuses. The remaining sinuses are clear. Moderate cerebellar atrophy. Ventricular system is midline. No evidence for acute intracranial hemorrhage. The calvarium and skull base are intact. The ventricles and sulci are within normal limits. There is no mass, hematoma, midline shift, or acute infarct. Impression: Chronic and pre-existing change. No acute process. ACT 112: Negative or not required by law. The above report was generated using voice recognition software. It may contain grammatical, syntax or spelling errors. Electronically signed by: Russ Colbert M.D. 04/10/2020 2:55 PM Dictated: 04/10/20 1454 Transcribed: 04/10/20 1454 ECG Data Indication: + altered mental status Rate (beats per minute): 63 Rhythm: + atrial fibrillation ECG Intervals/blocks: + Normal QRS and + Normal QT-c ECG ST segments: + Normal ST segments Change: no significant change (From EKG November 2018) MDM Narrative Observation note Indication: Psych eval/placement Patient, with depression, hypertension, atrial fibrillation was first seen at 1345 hrs and the observation time began at 1530 hrs and was necessary in order to have psych evaluation completed . Upon re-evaluation, 2 hours and 37 minutes revealed that the patient should be admitted to inpatient psychiatry. Disposition date and time April 10, 2020 1807. Impression & Plan Depression with suicidal ideation Discharge Plan Visit Data Chief Complaint: Mental Health Evaluation Stated Complaint: DEPRESSION,ANXIETY ED Provider: Anders Jeffery Discharge Problem: Depression with suicidal ideation Patient Disposition: Admitted As Inpatient Forms Stand Alone Forms: [facility], Suicide Prevention Resources Prescriptions Prescriptions: No Action allopurinol [Zyloprim] 100 mg Tablet 100 mg PO DAILY RF: 0 lorazepam [Ativan] 0.5 mg Tablet 0.5 mg PO TID PRN (Reason: Anxiety) RF: 0 tamsulosin [Flomax] 0.4 mg Capsule 0.4 mg PO HS RF: 0 meclizine 25 mg Tablet 25 mg PO TID RF: 0 pantoprazole [Protonix] 40 mg Tablet,Delayed Release (Dr/Ec) 20 mg PO QAM RF: 0 nortriptyline 10 mg Capsule 20 mg PO HS RF: 0 warfarin 5 mg Tablet 5 mg PO DAILY RF: 0 furosemide 20 mg Tablet 20 mg PO DAILY PRN (Reason: LEG SWELLING) RF: 0 metoprolol succinate [Toprol XL] 25 mg Tablet Extended Release 24 Hr 25 mg PO QAM RF: 0 albuterol sulfate [ProAir HFA] 90 mcg/actuation Hfa Aerosol Inhaler 1 puff INHALATION Q4H PRN (Reason: SOB/WHEEZING) RF: 0 bupropion HCl [Wellbutrin XL] 300 mg Tablet Extended Release 24 Hr 300 mg PO DAILY RF: 0 melatonin 5 mg Capsule 5 mg PO HS RF: 0 erythromycin with ethanol [Mckinley Pads] 2 % swab 1 applic TOPICAL DAILY RF: 0 bupropion HCl 150 mg tablet sustained-release 12 hr 150 mg PO DAILY RF: 0 doxycycline hyclate 50 mg capsule 50 mg PO DAILY RF: 0 escitalopram oxalate 20 mg tablet 20 mg PO DAILY RF: 0 memantine 10 mg tablet 10 mg PO BID RF: 0 clindamycin phosphate 1 % topical DAILY PRN (Reason: Acne) RF: 0 fluticasone propionate aerosol 50 mcg intranasal DAILY RF: 0 hyoscyamine sulfate 0.125 mg PO Q4H PRN (Reason: Abdominal Pain) RF: 0 ivermectin 1 % topical DAILY PRN (Reason: Acne) RF: 0 vardenafil 20 mg PO DAILY MDD 20 mg PRN (Reason: Erectile Dysfunction) RF: 0 Referrals Referrals: Eamon Felder DO [Primary Care Provider] -
[2020-04-10] MEDS ORDERED: ALUMINUM/MAGNESIUM SUSP 30 ML UDC PO PRN (18:03)
[2020-04-10] MEDS ORDERED: SODIUM CHLORIDE 0.65% NA SOLN 45 ML (OCEAN) PRN (18:03)
[2020-04-10] MEDS ORDERED: MAGNESIUM HYDROXIDE SUSP 30 ML UDC PO PRN (18:03)
[2020-04-10] MEDS ORDERED: BISMUTH SUBSALICYLATE PER ML OMNICELL CHARGE PO PRN (18:03)
[2020-04-10] MEDS ORDERED: ACETAMINOPHEN 325 MG TAB PO PRN (18:03)
[2020-04-10] MEDS ORDERED: HYOSCYAMINE SULFATE 0.125 MG TAB PO PRN (18:08)
[2020-04-10] MEDS ORDERED: FUROSEMIDE 20 MG TAB PO PRN (18:08)
[2020-04-10] MEDS ORDERED: ALBUTEROL HFA 8 GM INHALER INH PRN (18:08)
--- NOTE | 2020-04-10 18:23 | Progress Note ---
Date of Service April 10, 2020 Subjective case discussed with ED attending as afib and polypharmacy, supratherapeutic on Coumadin. Requested EKG prior to transfer to unit. No evidence of acute ischemia per Dr. Jeffery. Accepted to unit, multiple meds (antidepressants) held as sounded somewhat manic given HI/fast speech. Fasting labs and repeat coags ordered for am with consult to anticoag clinic tomorrow likely. Did not order certain prns due to drug drug interactions potential, trying to avoid anticholinergics due to age. MNPR due to CPAP, will need to be 1-on-1 overnight if CPAP. Results & Data ([facility]) Vital Signs (Past 12 Hours) Vital Signs Temp Pulse Resp BP Pulse Ox 04/10/20 13:38 36.6 C 81 20 139/89 97
--- NOTE | 2020-04-10 18:37 | Emergency Department Note ---
ED Visit Note Patient signed out to me by Dr. Jeffery awaiting 201 psych bed on 3 [address]. Patient has been previously medically and accepted there for suicidal thoughts and depression. 201 was presented to me and sign for voluntary inpatient treatment. Patient transported there for further care. No additional incidents while in the emergency department. .
[2020-04-10] MEDS ORDERED: MECLIZINE HCL 25 MG TAB PO PRN (21:00)
[2020-04-10] MEDS ORDERED: NORTRIPTYLINE HCL 10 MG CAP PO SCH (21:00)
[2020-04-10] MEDS: TAMSULOSIN HCL 0.4 MG CAP PO SCH (21:05)
[2020-04-10] MEDS: MEMANTINE HCL 10 MG TAB PO SCH (21:05)
[2020-04-10] MEDS: LORazepam 0.5 MG TAB PO PRN (22:26)
[2020-04-11 07:53] LABS: INR 3.5 (0.9-1.1); Prothrombin Time 34.1 Seconds (9.0-12.0)
[2020-04-11 08:31] LABS: Glucose Fasting 90 mg/dl (70-99)
[2020-04-11 08:38] LABS: Chol HDL Ratio 4; Cholesterol 160 mg/dl (0-200); HDL Cholesterol 36 mg/dl; LDL Cholesterol Calculated 96 mg/dl; Triglycerides 138 mg/dl (0-150); VLDL Cholesterol 28 mg/dl
--- NOTE | 2020-04-11 08:41 | History & Physical ---
Date of Service April 11, 2020 Impression / Recommendations Impression 79-year-old male with a history of depression and anxiety who presented with worsening mood and suicidal thoughts with multiple plans in the context of stressors including relationship with his fiance and work stress. 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 He is a poor historian for past medication trials, but indicates difficulty tolerating SSRIs in the past due to his IBS. Bupropion was held on admission as he appeared activated, was having mood swings and excessive spending, but does not have any other criteria for orly or hypomania. He also has multiple comorbid medical conditions including A. fib and anticoagulation with Coumadin. Inpatient treatment is medically necessary due to the severity of symptoms and risk for harm to himself or others if discharged. (1) Depression with suicidal ideation: 04/11 -hold bupropion given severe anxiety. Continue home doses of escitalopram 20 mg daily and melatonin 5 mg at bedtime, and explore options for augmentation (buspirone, lithium, atypical antipsychotic?). Patient does not recall any of his past medication trials, so spoke with his outpatient psychia trist, who had no past history either. There is some indication that he may have had manic episodes in the past, but he is a limited historian and there are limited records available describing these episodes. We will need to monitor for activation. -Agree with outpatient psychiatrist that taper off nortriptyline would be beneficial to limit side effects and drug drug interactions, and also due to his chronic suicidality. Decreased to 10 mg at bedtime, will taper off. -Encouraged patient to attend and participate in groups and therapy, work on healthy coping skills, and discharge safety plan. -Family meeting with fianc and/or brother. Ensure brother has secured firearms and the patient will not have access to them until he is stabilized. -Recommend outpatient psychotherapy. (2) Anxiety: 04/11 -resume SSRI as above, and continue home dose of lorazepam 0.5 3 times daily as needed. Ideally this would be tapered off given his multiple risk fa ctors for negative outcome including age, polypharmacy, multiple medical problems, question of cognitive impairment/dementia (on memantine as an outpatient). (3) Cognitive decline: 04/11-outpatient psychiatrist diagnosed cognitive disorder NOS and started memantine. Patient was referred for neuropsych testing but may have missed the appointment; if so, will need to be rescheduled at [facility]. -MOCA once patient has hearing aids and is able to participate appropriately. (4) Dehydration: 04/11-BUN chronically elevated (21-29), and was 25 on admission. Creatinine has ranged from 1.2-1.57 in the past year and a half, and was 1.46 on admission. Likely dehydrated on admission, recheck BMP tomorrow. (5) Hearing deficit: 04/11 -patient extremely hard of hearing, has only one hearing aid here and the battery is . Nursing staff contacting family to bring in the other hearing aid and new batteries. (6) Atrial fibrillation: 04/11 -continue metoprolol, warfarin held on admission due to INR of 3.3, and this morning it is 3.5. Consult coagulation clinic for input regarding dosing/INR monitoring. -Contacted Dr. Reyez for input re: Warfarin and INR. (7) Hypertension: 04/11 -continue home doses of metoprolol and furosemide. (8) IBS (irritable bowel syndrome): 04/11 -continue home dose of nortriptyline (9) Vertigo: 04/11 -continue home dose of meclizine (10) Hypertension: 04/11 -continue home doses of metoprolol and furosemide. 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 Chief Complaint "My brother's a physician....and my sense was it was getting worse...". History of Present Illness The patient presented to the ER yesterday, 04/10/2020, reporting worsening mood in the context of multiple stressors. 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 He reported low mood, decreased interest, concentration, and energy, daily crying spells, difficulty functioning, and decreased self-care. He also reported racing thoughts and anxiety, paranoid thoughts that he is being watched or followed and that people are out to get him, stating that about a year ago 12 of his employees left and he thought it was a conspiracy. He also reported homicidal thoughts to shoot "the people who stole my company." Additional stressors are relationship strain with his fiance whom he lives with and financial problems. He reported good sleep, 9 to 10 hours a night. His brother was contacted in the ER and agreed to secure the patient's guns. He had noticed the patient having "drastic highs and lows," and that he was spending excessively and buying unnecessary items. Admission labs notable for normal CBC, INR 3.3, chloride 109, BUN 25, creatinine 1.46, glucose 101, alkaline phosphatase 120, albumin 3.2, TSH 1.660, negative UA, UDS + MDMA. FLP and glucose performed this morning were within normal limits. Head CT in the ER due to mental status change and recent fall on Coumadin showed no acute intracranial hemorrhage, mass, hematoma, or acute infarct, but moderate cerebellar atrophy. EKG showed atrial fibrillation with a QTC of 452. Per ER doctor there was no evidence of acute ischemia. Repeat PT/INR ordered for this morning, INR 3.5. Patient was admitted voluntarily and continued on memantine, lorazepam prn, and nortriptyline; bupropion and escitalopram were held due to concern for manic symptoms. 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 He says he does not work much now and that his company is "pretty much shut down." He also reports relationship strain with his fiance, and stress related to having IBS. He describes frequent mood swings throughout the day, stating he will "feel really good 1 hour, then 2 hours later I'm depressed." This occurs 2-3 times a day, and worsened over the past couple of weeks. He reports suicidal thoughts have been more intense as well, but denies taking any steps to act on them, stating his children and grandchildren are protective. He started having crying spells 1 to 2 weeks ago. He also reports significant anxiety, worrying constantly, with racing thoughts, difficulty controlling the worry, impaired focus, and at times feels he "will freeze up." He reports anxiety going as far back as middle school, but did not recognize it as anxiety until many years later. He denies symptoms consistent with orly, hallucinations, and delusions. He does report paranoia with concerns that employees and company may have plotted against him. He is not sure if he has had any recent medication changes. Past Psychiatric History Previous Psych History: Spoke with Dr. Montalvo, who has been seeing him for depression and anxiety since 05/2019, reported he had been in treatment since age 24, and had had numerous medication trials in the past. He reported being unfaithful in many relationships, and a h/o 1 previous hospitalization for OD, which he said was unintentional. He was on bupropion XL 300mg qam and SR 150mg midday as well as Ativan prn which he reported using sparingly, which was continued, and escitalopram was started. He did not know what his previous medication trials were. He declined therapy. He said he was taking nortriptyline for sleep, which she recommended tapering off due to side effects/age. She noted cognitive impairment and started memantine, which was recently increased as it was worsening. He had been referred to [facility] for neuropsych testing but missed the appt. Reviewed documentation from his hospitalization here in 2003 (only the discharge summary is available in the EMR). He was hospitalized with mood and psychotic symptoms, and was diagnosed with psychosis NOS and recurrent depression. Collateral information was obtained from his outpatient psychiatrist at the time, his previous psychiatrist, his friend Mellisa, and his brother, and revealed a history of fairly lengthy depressive episodes and potentially periods of hypomania. The patient himself is unable to give a clear history. He had been exceeding the recommended doses of his antidepressants and stimulants, and Provigil, Effexor, and Serzone were discontinued. He was started on risperidone, clonazepam, and lamotrigine. Current Psychiatric Diagnosis: Depression and anxiety Outpatient Services: Psychiatrist: Dr. Claire Montalvo at [facility] at [facility] for essential tremor Previous Psych Admissions: 1 previous hospitalization here in 2003 Do You Have Access To A Gun?: Yes History of Previous Suicide Attempt: No Past Medication Trials: Patient states he was tried on multiple medications in the past, but cannot recall any of them. He had difficulty tolerating SSRIs due to his IBS. Per previous hospitalization here, he was on Provigil, Ambien, Serzone, Effexor XR, Risperdal, Klonopin, and lamotrigine. Allergies Allergy/AdvReac Type Severity Reaction Status Date / Time house dust Allergy Verified 12/01/18 08:49 Home Medications Home Medications Medication Instructions Recorded Confirmed Type albuterol sulfate [ProAir HFA] 1 puff INHALATION Q4H PRN 11/10/18 04/10/20 History allopurinol [Zyloprim] 100 mg PO DAILY 11/10/18 04/10/20 History bupropion HCl [Wellbutrin XL] 300 mg PO DAILY 11/10/18 04/10/20 History furosemide 20 mg PO DAILY PRN 11/10/18 04/10/20 History lorazepam [Ativan] 0.5 mg PO TID PRN 11/10/18 04/10/20 History meclizine 25 mg PO TID 11/10/18 04/10/20 History melatonin 5 mg PO HS 11/10/18 04/10/20 History metoprolol succinate [Toprol XL] 25 mg PO QAM 11/10/18 04/10/20 History nortriptyline 20 mg PO HS 11/10/18 04/10/20 History pantoprazole [Protonix] 20 mg PO QAM 11/10/18 04/10/20 History tamsulosin [Flomax] 0.4 mg PO HS 11/10/18 04/10/20 History warfarin 5 mg PO DAILY 11/10/18 04/10/20 History bupropion HCl 150 mg PO DAILY 04/10/20 04/10/20 History clindamycin phosphate 1 % TOPICAL DAILY PRN 04/10/20 04/10/20 History doxycycline hyclate 50 mg PO DAILY 04/10/20 04/10/20 History erythromycin with ethanol [M[place]ley 1 applic TOPICAL DAILY 04/10/20 04/10/20 History Pads] escitalopram oxalate 20 mg PO DAILY 04/10/20 04/10/20 History fluticasone propionate 50 mcg INTRANASAL DAILY 04/10/20 04/10/20 History hyoscyamine sulfate 0.125 mg PO Q4H PRN 04/10/20 04/10/20 History ivermectin 1 % TOPICAL DAILY PRN 04/10/20 04/10/20 History memantine 10 mg PO BID 04/10/20 04/10/20 History vardenafil 20 mg PO DAILY PRN MDD 20 mg 04/10/20 04/10/20 History Family History Family History of: None Alcohol History Hx of Alcohol Use Over the Past 12 Months: No AUDIT Total Score: 0 Smoking Use Have You Smoked or Used Tobacco Products in the Last 30 Days: No tobacco type: cigarettes Smoking Status: Former smoker Substance History Hx of Prescription Med Misuse Over the Past 12 Months: No Hx of Over the Counter Med Misuse Over the Past 12 Months: No Hx of Inhalent Misuse Over the Past 12 Months: No Hx of Organic Substance Use Over the Past 12 Months: No Hx of Illegal Substances/Street Drug Use Over Past 12 Months: No Problems as a Result of Past Substance Use: None Identified Personal History Living Arrangements: Home Living Arrangements Comments: In [place] with his fiance Employment Status: Self-Employed (Owns an [employer] 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 Other Beliefs That Will Affect Care: None Current Legal Problems: Yes (Took another company to court who he alleged stole his engineering contracts) Patient History Medical History Acne ON DOXYCYCLINE Anxiety Asthma STABLE Atrial fibrillation ON WARFARIN BPH (benign prostatic hyperplasia) Depression Diverticular disease DIVERTICULITIS S/P PERFORATION/COLON RESECTION (2005) GERD (gastroesophageal reflux disease) Gout Hearing deficit BILATERAL AIDES Hyperlipidemia Hypertension IBS (irritable bowel syndrome) LBBB (left bundle branch block) CHRONIC Obesity Osteoarthritis Sciatica Sleep apnea CPAP Vertigo Surgical History History of appendectomy History of bowel resection DIVERTICULITIS S/P PERFORATION/COLON RESECTION (2005) History of colonoscopy History of colostomy SUBSEQUENT REVERSAL History of colostomy reversal History of endoscopic sinus surgery History of esophagogastroduodenoscopy (EGD) History of tonsillectomy Family History Mother Family hx of colon cancer Family history of diabetes mellitus Social History Smoking Status: Former smoker Second Hand Exposure: No; Hx Alcohol Use: No Hx Substance Use: No Preferred Language: Vietnamese Communication Ability: Effective Software Test Developer Required: No Beliefs That Will Affect Care: None Current Living Situation: Significant Other Feels Safe at Home: Yes Review of Systems Review of Systems: All systems reviewed & are unremarkable except as noted in HPI & below Extremely hard of hearing, hearing aid battery is . IBS. Physical Exam Psychiatric: Orientation: alert, oriented to person, oriented to place, oriented to time and cooperative Apperance: appropriately dressed Pajama bottoms and a T-shirt Eye Contact: + fair eye contact Motor Behavior: steady gait and station and no abnormal motor movements Rambling quality, slight delays at times, mildly slowed Affect: euthymic affect Mood: + depressed mood and + anxious mood Thought Process: + circumstantial thought process Thought Content: reality based without delusions Suicidal Thoughts: + reports suicidal thoughts Homicidal Thoughts: denies homicidal thoughts Hallucinations: no auditory hallucinations and no visual hallucinations Cognition: language grossly intact; + remote memory not intact and + attention not intact Insight: + fair insight Judgement: + fair judgement Vital Signs (Past 24 Hours): Last Vital Signs Temp 36.5 C 04/11/20 06:00 Pulse 50 L 04/11/20 06:33 Resp 18 04/11/20 06:00 BP 111/66 04/11/20 06:33 Pulse Ox 97 04/10/20 18:52 Exam Statement: A physical exam was performed in the ER prior to admission to the unit by Dr. Julio Cesar Coles. I accept that physical as correct/medical clearance for the inpatient physical exam. Results & Data ([facility]) Laboratory Results Laboratory Results - last 24 hr 04/10/20 04/10/20 04/10/20 14:13 14:13 14:13 WBC 6.31 RBC 5.16 Hgb 15.7 Hct 46.7 MCV 90.5 MCH 30.4 MCHC 33.6 RDW Std Deviation 51.6 H RDW Coeff of Henry 15.4 H Plt Count 159 MPV 10.3 Immature Gran % (Auto) 0.2 Neut % (Auto) 63.4 Lymph % (Auto) 26.5 [place] % (Auto) 6.2 Eos % (Auto) 3.5 Baso % (Auto) 0.2 Neut # (Auto) 4.01 Lymph # (Auto) 1.67 [place] # (Auto) 0.39 Eos # (Auto) 0.22 Baso # (Auto) 0.01 Immature Gran # (Auto) 0.01 PT INR APTT PTT Ratio Sodium 140 Potassium 4.0 Chloride 109 H Carbon Dioxide 23 Anion Gap 8.0 BUN 25 H Creatinine 1.46 H Est Cr Clr Drug Dosing 53.4 Est GFR ( Amer) 53.0 Est GFR (Non-Af Amer) 45.7 BUN/Creatinine Ratio 16.8 Glucose 101 H Fasting Glucose Calcium 8.5 Total Bilirubin 0.6 AST 24 ALT 24 Alkaline Phosphatase 120 H Total Protein 7.4 Albumin 3.2 L Globulin 4.2 H Albumin/Globulin Ratio 0.8 L Triglycerides Cholesterol LDL Cholesterol, Calc VLDL Cholesterol, Calc HDL Cholesterol Cholesterol/HDL Ratio TSH 1.660 Urine Color Urine Appearance Urine pH Ur Specific [place] Urine Protein Urine Glucose (UA) Urine Ketones Urine Blood Urine Nitrite Urine Bilirubin Urine Urobilinogen Ur Leukocyte Esterase Salicylates < 1.7 L Urine Opiates Screen Ur Methadone, Qual Acetaminophen < 2 L Urine Barbiturates Ur Phencyclidine (PCP) U Amphetamin/Meth Scrn Urine MDEA MDMA (Ecstasy) Screen MDMA Urine MDMA U Benzodiazepines Scrn Ur Cocaine Metabolite U Marijuana (THC) Screen Ethyl Alcohol mg/dL 04/10/20 04/10/20 04/10/20 14:13 14:13 15:18 WBC RBC Hgb Hct MCV MCH MCHC RDW Std Deviation RDW Coeff of [place] Plt Count MPV Immature Gran % (Auto) Neut % (Auto) Lymph % (Auto) [place] % (Auto) Eos % (Auto) Baso % (Auto) Neut # (Auto) Lymph # (Auto) [place] # (Auto) Eos # (Auto) Baso # (Auto) Immature Gran # (Auto) PT 32.5 H INR 3.3 H APTT 44.0 H PTT Ratio 1.6 Sodium Potassium Chloride Carbon Dioxide Anion Gap BUN Creatinine Est Cr Clr Drug Dosing Est GFR ( Amer) Est GFR (Non-Af Amer) BUN/Creatinine Ratio Glucose Fasting Glucose Calcium Total Bilirubin AST ALT Alkaline Phosphatase Total Protein Albumin Globulin Albumin/Globulin Ratio Triglycerides Cholesterol LDL Cholesterol, Calc VLDL Cholesterol, Calc HDL Cholesterol Cholesterol/HDL Ratio TSH Urine Color Urine Appearance Urine pH Ur Specific [place] Urine Protein Urine Glucose (UA) Urine Ketones Urine Blood Urine Nitrite Urine Bilirubin Urine Urobilinogen Ur Leukocyte Esterase Salicylates Urine Opiates Screen Neg Ur Methadone, Qual Neg Acetaminophen Urine Barbiturates Neg Ur Phencyclidine (PCP) Neg U Amphetamin/Meth Scrn Neg Urine MDEA MDMA (Ecstasy) Screen Pos H MDMA Urine MDMA U Benzodiazepines Scrn Neg Ur Cocaine Metabolite Neg U Marijuana (THC) Screen Neg Ethyl Alcohol mg/dL < 3.0 04/10/20 04/10/20 04/11/20 15:18 15:18 07:32 WBC RBC Hgb Hct MCV MCH MCHC RDW Std Deviation RDW Coeff of [place] Plt Count MPV Immature Gran % (Auto) Neut % (Auto) Lymph % (Auto) [place] % (Auto) Eos % (Auto) Baso % (Auto) Neut # (Auto) Lymph # (Auto) [place] # (Auto) Eos # (Auto) Baso # (Auto) Immature Gran # (Auto) PT 34.1 H INR 3.5 H APTT PTT Ratio Sodium Potassium Chloride Carbon Dioxide Anion Gap BUN Creatinine Est Cr Clr Drug Dosing Est GFR ( Amer) Est GFR (Non-Af Amer) BUN/Creatinine Ratio Glucose Fasting Glucose Calcium Total Bilirubin AST ALT Alkaline Phosphatase Total Protein Albumin Globulin Albumin/Globulin Ratio Triglycerides Cholesterol LDL Cholesterol, Calc VLDL Cholesterol, Calc HDL Cholesterol Cholesterol/HDL Ratio TSH Urine Color Yellow Urine Appearance Clear Urine pH 5.0 Ur Specific [place] 1.015 Urine Protein Negative Urine Glucose (UA) Negative Urine Ketones Negative Urine Blood Negative Urine Nitrite Negative Urine Bilirubin Negative Urine Urobilinogen Negative Ur Leukocyte Esterase Negative Salicylates Urine Opiates Screen Ur Methadone, Qual Acetaminophen Urine Barbiturates Ur Phencyclidine (PCP) U Amphetamin/Meth Scrn Urine MDEA Pending MDMA (Ecstasy) Screen MDMA Pending Urine MDMA Pending U Benzodiazepines Scrn Ur Cocaine Metabolite U Marijuana (THC) Screen Ethyl Alcohol mg/dL 04/11/20 07:32 WBC RBC Hgb Hct MCV MCH MCHC RDW Std Deviation RDW Coeff of [place] Plt Count MPV Immature Gran % (Auto) Neut % (Auto) Lymph % (Auto) [place] % (Auto) Eos % (Auto) Baso % (Auto) Neut # (Auto) Lymph # (Auto) [place] # (Auto) Eos # (Auto) Baso # (Auto) Immature Gran # (Auto) PT INR APTT PTT Ratio Sodium Potassium Chloride Carbon Dioxide Anion Gap BUN Creatinine Est Cr Clr Drug Dosing Est GFR ( Amer) Est GFR (Non-Af Amer) BUN/Creatinine Ratio Glucose Fasting Glucose 90 Calcium Total Bilirubin AST ALT Alkaline Phosphatase Total Protein Albumin Globulin Albumin/Globulin Ratio Triglycerides 138 Cholesterol 160 LDL Cholesterol, Calc 96 VLDL Cholesterol, Calc 28 HDL Cholesterol 36 Cholesterol/HDL Ratio 4 TSH Urine Color Urine Appearance Urine pH Ur Specific [place] Urine Protein Urine Glucose (UA) Urine Ketones Urine Blood Urine Nitrite Urine Bilirubin Urine Urobilinogen Ur Leukocyte Esterase Salicylates Urine Opiates Screen Ur Methadone, Qual Acetaminophen Urine Barbiturates Ur Phencyclidine (PCP) U Amphetamin/Meth Scrn Urine MDEA MDMA (Ecstasy) Screen MDMA Urine MDMA U Benzodiazepines Scrn Ur Cocaine Metabolite U Marijuana (THC) Screen Ethyl Alcohol mg/dL Current Inpatient Medications Current Inpatient Medications: Current Inpatient Medications Acetaminophen (Tylenol) 650 mg PO Q4H PRN PRN Reason: Headache or Minor Fever Stop: 05/10/20 18:02 Albuterol (Ventolin Hfa) 1 puffs INH Q4R PRN PRN Reason: SOB/WHEEZING Stop: 05/10/20 18:07 Allopurinol (Zyloprim) 100 mg PO DAILY [facility] Stop: 05/11/20 08:59 Fluticasone Propionate (Flonase) 1 sprays NA DAILY [facility] Stop: 05/11/20 08:59 Furosemide (Lasix) 20 mg PO UD PRN PRN Reason: LEG SWELLING Stop: 05/10/20 18:07 Hyoscyamine (Levsin) 0.125 mg PO Q4H PRN PRN Reason: Abdominal Pain Lorazepam (Ativan) 0.5 mg PO TID PRN PRN Reason: Anxiety Stop: 05/10/20 18:07 Last Admin: 04/10/20 22:26 Dose: 0.5 mg Documented by: Meclizine HCl (Antivert) 25 mg PO TID PRN PRN Reason: Vertigo Stop: 05/10/20 20:59 Memantine (Namenda) 10 mg PO BID [facility] Stop: 05/10/20 20:59 Last Admin: 04/10/20 21:05 Dose: 10 mg Documented by: Metoprolol Succinate (Toprol Xl) 25 mg PO QAM [facility] Stop: 05/11/20 08:59 Nortriptyline HCl (Pamelor) 20 mg PO [facility] Stop: 05/10/20 20:59 Last Admin: 04/10/20 21:05 Dose: 20 mg Documented by: Pantoprazole Sodium (Protonix) 40 mg PO QAM [facility]; Protocol Stop: 05/11/20 08:59 Sodium Chloride ([place] Nasal) 1 - 2 sprays NA PRN PRN PRN Reason: Nasal Dryness/Congestion Stop: 05/10/20 18:02 Tamsulosin HCl (Flomax) 0.4 mg PO HS [facility] Stop: 05/10/20 20:59 Last Admin: 04/10/20 21:05 Dose: 0.4 mg Documented by:
[2020-04-11] MEDS: MEMANTINE HCL 10 MG TAB PO SCH ×2 (10:10→21:32)
[2020-04-11] MEDS: METOPROLOL SUCC 25MG EXT REL TAB PO SCH (10:11)
[2020-04-11] MEDS: PANTOprazole 40 MG TAB PO SCH (10:11)
[2020-04-11] MEDS: allopurinoL 100 MG TAB PO SCH (10:11)
[2020-04-11] MEDS: FLUTICASONE PROPIONATE NA SPR 16 GM BTL SCH (10:12)
--- NOTE | 2020-04-11 11:06 | Electrocardiogram Report ---
Test Reason : Blood Pressure : / mmHG Vent. Rate : 063 BPM Atrial Rate : 076 BPM P-R Int : 000 ms QRS Dur : 134 ms QT Int : 442 ms P-R-T Axes : 000 -46 -15 degrees QTc Int : 452 ms Poor data quality, interpretation may be adversely affected Atrial fibrillation Left axis deviation Non-specific intra-ventricular conduction block Abnormal ECG Confirmed by Con Caraballo ([id number] on 04/11/2020 11:05:27 AM Referred By: REFERRED SELF Confirmed By:Jose Manuel Caraballo
[2020-04-11 11:57] LABS: INR 3.8 (0.9-1.1); Prothrombin Time 37.2 Seconds (9.0-12.0)
[2020-04-11] MEDS: ESCITALOPRAM OXALATE 20 MG TAB PO SCH (12:09)
[2020-04-11] MEDS: TAMSULOSIN HCL 0.4 MG CAP PO SCH (21:32)
[2020-04-11] MEDS ORDERED: NORTRIPTYLINE HCL 10 MG CAP PO SCH (22:00)
[2020-04-11] MEDS: MELATONIN 3 MG TAB PO SCH (22:41)
[2020-04-12] MEDS: LORazepam 0.5 MG TAB PO PRN (03:08)
[2020-04-12 07:57] LABS: INR 2.6 (0.9-1.1); Prothrombin Time 25.6 Seconds (9.0-12.0)
[2020-04-12 08:52] LABS: BUN Creatinine Ratio 14.1 (10-20); Calcium 8.3 mg/dl (8.5-10.1); Creatinine Clr Calc Pharmacy 52.7 ml/min; Est GFR (African American) 52.1; Potassium 3.8 mmol/L (3.5-5.1)
[2020-04-12] MEDS: FLUTICASONE PROPIONATE NA SPR 16 GM BTL SCH (10:16)
[2020-04-12] MEDS: METOPROLOL SUCC 25MG EXT REL TAB PO SCH (10:17)
[2020-04-12] MEDS: ESCITALOPRAM OXALATE 20 MG TAB PO SCH (10:17)
[2020-04-12] MEDS: allopurinoL 100 MG TAB PO SCH (10:17)
[2020-04-12] MEDS: PANTOprazole 40 MG TAB PO SCH (10:17)
[2020-04-12] MEDS: MEMANTINE HCL 10 MG TAB PO SCH ×2 (10:17→21:10)
--- NOTE | 2020-04-12 15:01 | Psychiatric Progress Note ---
Date of Service April 12, 2020 Impression / Recommendations Impression 79-year-old male with a history of depression and anxiety who presented with worsening mood and suicidal thoughts with multiple plans in the context of stressors including relationship with his fiance and work stress. 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 He is a poor historian for past medication trials, but indicates difficulty tolerating SSRIs in the past due to his IBS. Bupropion was held on admission as he appeared activated, was having mood swings and excessive spending, but does not have any other criteria for orly or hypomania. Nortriptyline was also tapered and discontinued. He also has multiple comorbid medical conditions including A. fib and anticoagulation with Coumadin. Inpatient treatment is medically necessary due to the severity of symptoms and risk for harm to himself or others if discharged. (1) Depression with suicidal ideation: 04/11 -hold bupropion given severe anxiety. Continue home doses of escitalopram 20 mg daily and melatonin 5 mg at bedtime, and explore options for augmentation (buspirone, lithium, atypical antipsychotic?). Patient does not recall any of his past medication trials, so spoke with his outpatient psychiatrist, who had no past history either. There is some indication that he may have had manic episodes in the past, but he is a limited historian and there are limited records available describing these episodes. We will need to monitor for activation. -Agree with outpatient psychiatrist that taper off nortriptyline would be beneficial to limit side effects and drug drug interactions, and also due to his chronic suicidality. Decreased to 10 mg at bedtime, will taper off. -Encouraged patient to attend and participate in groups and therapy, work on healthy coping skills, and discharge safety plan. -Family meeting with fianc and/or brother. Ensure brother has secured firearms and the patient will not have access to them until he is stabilized. -Recommend outpatient psychotherapy. 04/12 - Continue escitalopram and melatonin at this time. Received support from PCP and outpatient psychiatrist regarding discontinuation of nortriptyline, di scussed with patient who is also agreeable with discontinuation at this time. - Family meeting with brother scheduled for tomorrow morning. Firearms have reportedly been secured. - Pt reporting willingness for therapy - Denied SI today, but could not convincingly contract for safety outside of the inpatient setting (2) Anxiety: 04/11 -resume SSRI as above, and continue home dose of lorazepam 0.5 3 times daily as needed. Ideally this would be tapered off given his multiple risk factors for negative outcome including age, polypharmacy, multiple medical problems, question of cognitive impairment/dementia (on memantine as an outpatient). (3) Cognitive decline: 04/11-outpatient psychiatrist diagnosed cognitive disorder NOS and started memantine. Patient was referred for neuropsych testing but may have missed the appointment; if so, will need to be rescheduled at [facility]. -MOCA once patient has hearing aids and is able to participate appropriately. 04/12 - Patient participated in MoCA after hearing aid batteries were replaced. Pt scored a 25/30, demonstrating some mild cognitive deficit - Patient lost 1 point during alternating trail making for an error. 1 point lost in language assessment due to insertion of an additional syllable ("underneath"). 1 point lost in fluency as only 10 words were provided. 1 point lost in abstraction due to answer of "both have wheels" for "train- bicycle" analogy. 1 point lost for delayed recall. (4) Dehydration: 04/11-BUN chronically elevated (21-29), and was 25 on admission. Creatinine has ranged from 1.2-1.57 in the past year and a half, and was 1.46 on admission. Likely dehydrated on admission, recheck BMP tomorrow. (5) Hearing deficit: 04/11 -patient extremely hard of hearing, has only one hearing aid here and the battery is . Nursing staff contacting family to bring in the other hearing aid and new batteries. (6) Atrial fibrillation: 04/11 -continue metoprolol, warfarin held on admission due to INR of 3.3, and this morning it is 3.5. Consult coagulation clinic for input regarding dosing/INR monitoring. -Contacted Dr. Reyez for input re: Warfarin and INR. 04/12 - Pt revealed today that he is on a different Warfarin regimen than was initially documented. He showed this provider a card with the following schedule: 5mg on Sun, Tu, Th and 2.5mg on Mon, Fri, Fri, Sat. - Pt states his dosing was adjusted prior to his colonoscopy - he was stop the medication from 03/31 - 04/04 and then take 5mg on 04/04 followed by 10mg on 04/05 and then resume his home dosing schedule - Resumed home medications today, as INR was within range at 2.8 - Will continue daily PT/INR per hospital protocol - Appreciate assistance from Dr. Reyez, who reported availability for further recommendations as needed (7) Hypertension: 04/11 -continue home doses of metoprolol and furosemide. 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 Chief Complaint "Oh, not too bad today. Things were a little funny last night." Review of Systems Notes Constitutional: reports interrupted sleep last evening due to vivid dream Cardiovascular: denied Respiratory: denied Gastrointestinal: denied Neurological: denied Psychiatric: denies symptoms other than stated above Total of at least 10 systems reviewed, pertinent positives as above and in HPI. Sleep Information Total Hours of Sleep: 5 Sleep Comments: 1:1 for CPAP at . See nurse's note. Patient had difficult time sleeping. Meal Information Percent Meal Consumed - Breakfast: 100 Percent Meal Consumed - Lunch: 100 Percent Meal Consumed - Dinner: 100 Subjective Subjective Patient was seen & assessed and interval progress reviewed with treatment team. Staff report the patient has been denying true HI. His mood was somewhat incongruent last evening, having rated his mood a 3/10 but "pretty good." Pt did submit a 72-hour notice this afternoon. Pt was seen today to assess progress since admission. Pt states he is "not bad today" but reports "things were a little funny last night." Pt reports that he had "a hallucination or a bad dream, I'm not sure. It was around 3 am." Pt states the dream was not necessarily scare or disturbing, but was unusual for him ("it felt like scenes from old movies"). Pt admits that he was "dragging when I woke up, I was slow m oving this morning." Pt reports he is open to discussing medications and treatment recommendations. He is now reporting willingness for therapy. Pt feels tomorrow meeting with his brother will go well and is grateful for his support. Pt denied SI, but reports he is still having concerns related to his mood and therefore dose not feel ready to return home. He does comment on the submission of "my 72 hour thing." Pt states "I only did it as an option, not because I think I'm ready to go - just in case I get a little stir crazy by Friday or Friday." Pt was agreeable with discontinuation of nortriptyline after discussion about his medication regimen. Pt was agreeable with completing a MoCA assessment (results outlined below). Pt denied other needs or concerns today. Physical Exam Psychiatric Orientation: alert, oriented x 3 and cooperative (and pleasant) Apperance: appropriately dressed, appropriately groomed and appeared stated age Eye Contact: good eye contact Motor Behavior: steady gait and station and no abnormal motor movements Speech: normal rate/rhythm/volume of speech Affect: + anxious affect, + blunted affect (appearing somewhat subdued) and mood congruent with affect Mood: + depressed mood and + anxious mood Thought Process: goal directed thought process, clear/coherent thought process and + perseveration Thought Content: + preoccupation and reality based without delusions Suicidal Thoughts: denies suicidal thoughts and denies suicidal intent But continues to be unable to convincingly contract for safety outside of the inpatient hospital setting Homicidal Thoughts: denies homicidal thoughts Hallucinations: no auditory hallucinations and no visual hallucinations Cognition: attention grossly intact and language grossly intact Estimated Intelligence: consistent with education level Insight: + fair insight Judgement: + fair judgement Vital Signs (Past 24 Hours) Last Vital Signs Temp 36.6 C 04/12/20 07:03 Pulse 71 04/12/20 07:04 Resp 18 04/12/20 07:03 BP 114/73 04/12/20 07:04 Pulse Ox 97 04/10/20 18:52 Results & Data ([facility]) Laboratory Results Laboratory Results - last 24 hr 04/12/20 04/12/20 07:35 07:35 PT 25.6 H INR 2.6 H Sodium 142 Potassium 3.8 Chloride 110 H Carbon Dioxide 26 Anion Gap 6.0 BUN 21 H Creatinine 1.48 H Est Cr Clr Drug Dosing 52.7 Est GFR ( Amer) 52.1 Est GFR (Non-Af Amer) 45.0 BUN/Creatinine Ratio 14.1 Glucose 97 Calcium 8.3 L Current Inpatient Medications Current Inpatient Medications: Current Inpatient Medications Acetaminophen (Tylenol) 650 mg PO Q4H PRN PRN Reason: Headache or Minor Fever Stop: 05/10/20 18:02 Albuterol (Ventolin Hfa) 1 puffs INH Q4R PRN PRN Reason: SOB/WHEEZING Stop: 05/10/20 18:07 Allopurinol (Zyloprim) 100 mg PO DAILY [facility] Stop: 05/11/20 08:59 Last Admin: 04/12/20 10:17 Dose: 100 mg Documented by: Escitalopram Oxalate (Lexapro Tab) 20 mg PO DAILY ALEKSANDRA Stop: 05/11/20 10:14 Last Admin: 04/12/20 10:17 Dose: 20 mg Documented by: Fluticasone Propionate (Flonase) 1 sprays NA DAILY ALEKSANDRA Stop: 05/11/20 08:59 Last Admin: 04/12/20 10:16 Dose: 1 sprays Documented by: Furosemide (Lasix) 20 mg PO UD PRN PRN Reason: LEG SWELLING Stop: 05/10/20 18:07 Hyoscyamine (Levsin) 0.125 mg PO Q4H PRN PRN Reason: Abdominal Pain Lorazepam (Ativan) 0.5 mg PO TID PRN PRN Reason: Anxiety Stop: 05/10/20 18:07 Last Admin: 04/12/20 03:08 Dose: 0.5 mg Documented by: Meclizine HCl (Antivert) 25 mg PO TID PRN PRN Reason: Vertigo Stop: 05/10/20 20:59 Melatonin (Melatonin) 4.5 mg PO HS ALEKSANDRA Stop: 05/11/20 21:59 Last Admin: 04/11/20 22:41 Dose: 4.5 mg Documented by: Memantine (Namenda) 10 mg PO BID ALEKSANDRA Stop: 05/10/20 20:59 Last Admin: 04/12/20 10:17 Dose: 10 mg Documented by: Metoprolol Succinate (Toprol Xl) 25 mg PO [facility] Stop: 05/11/20 08:59 Last Admin: 04/12/20 10:17 Dose: 25 mg Documented by: Nortriptyline HCl (Pamelor) 10 mg PO [facility] Stop: 05/11/20 21:59 Last Admin: 04/11/20 21:33 Dose: 10 mg Documented by: Pantoprazole Sodium (Protonix) 40 mg PO [facility]; Protocol Stop: 05/11/20 08:59 Last Admin: 04/12/20 10:17 Dose: 40 mg Documented by: Sodium Chloride ([place] Nasal) 1 - 2 sprays NA PRN PRN PRN Reason: Nasal Dryness/Congestion Stop: 05/10/20 18:02 Tamsulosin HCl (Flomax) 0.4 mg PO [facility] Stop: 05/10/20 20:59 Last Admin: 04/11/20 21:32 Dose: 0.4 mg Documented by: Warfarin Sodium (Coumadin) 5 mg PO DAILY@1600 [facility] Stop: 04/12/20 16:01 Warfarin Sodium (Coumadin) 2.5 mg PO DAILY@1600 [facility] Stop: 04/13/20 16:01 Warfarin Sodium (Coumadin) 5 mg PO DAILY@1600 [facility] Stop: 05/14/20 15:59 Mental Health & Subst Abuse Tx Psychiatrist Name of Psychiatrist: Lauri Montalvo Psychiatrist's Date of Appointment with Psychiatrist: 05/17/20 Time of Appointment with Psychiatrist: 10:30 a.m. Psychiatric Appointment Comment: Video call - follow link in email Post Discharge Appointments Primary Care Physician Name Of Family Doctor: Lauri Felder [facility] Date of Appointment with PCP: 04/24/20 Time of Appointment with PCP: 11:05 a.m. Provider Appointment Comment: Kenna Orozco Neurologist Name of Neurologist: Lauri Cardona Neurologist's Date of Appointment with Neurologist: 07/17/20 Time of Appointment with Neurologist: 9:05 a.m. Neurology Appointment Comment: Kenna Orozco Specialist Name of Specialist: Lauri Cardiology Phone Number for Specialist: [phone] Date of Appointment with Specialist: 07/10/20 Time of Appointment with Specialist: 1:15 p.m. Specialty Appointment Comment: Shalini Chairez Other #1: Name of Aftercare Appointment: Lauri - Pulmonology Phone Number of Aftercare Appointment: [phone] Date of Aftercare Appointment: 08/01/20 Time of Aftercare Appointment: 9:15 a.m. Aftercare Appointment Comment: Shalini Chairez Contact Information Discharge Discharge Address: [address] [place] [address], [place] [address]
[2020-04-12] MEDS ORDERED: WARFARIN SOD 5 MG TAB PO ONE (16:00)
[2020-04-12] MEDS ORDERED: WARFARIN SOD 5 MG TAB PO SCH (16:15)
[2020-04-12] MEDS: WARFARIN SOD 2.5 MG TAB PO SCH (19:30)
[2020-04-12] MEDS: MELATONIN 3 MG TAB PO SCH (21:10)
[2020-04-12] MEDS: TAMSULOSIN HCL 0.4 MG CAP PO SCH (21:11)
[2020-04-13 08:05] LABS: INR 1.7 (0.9-1.1); Prothrombin Time 17.8 Seconds (9.0-12.0)
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
[2020-04-13] MEDS: MEMANTINE HCL 10 MG TAB PO SCH ×2 (09:52→21:52)
[2020-04-13] MEDS: PANTOprazole 40 MG TAB PO SCH (09:52)
[2020-04-13] MEDS: ESCITALOPRAM OXALATE 20 MG TAB PO SCH (09:52)
[2020-04-13] MEDS: allopurinoL 100 MG TAB PO SCH (09:53)
[2020-04-13] MEDS: METOPROLOL SUCC 25MG EXT REL TAB PO SCH (09:53)
[2020-04-13] MEDS: FLUTICASONE PROPIONATE NA SPR 16 GM BTL SCH (09:53)
[2020-04-13] MEDS ORDERED: LORazepam 0.5 MG TAB PO PRN (09:55)
[2020-04-13] MEDS ORDERED: WARFARIN SOD 2.5 MG TAB PO ONE ×2 (16:00)
[2020-04-13] MEDS: WARFARIN SOD 5 MG TAB PO SCH (17:20)
[2020-04-13] MEDS: TAMSULOSIN HCL 0.4 MG CAP PO SCH (21:52)
[2020-04-13] MEDS: MELATONIN 3 MG TAB PO SCH (21:52)
[2020-04-14 07:51] LABS: INR 1.6 (0.9-1.1); Prothrombin Time 16.6 Seconds (9.0-12.0)
[2020-04-14] MEDS: allopurinoL 100 MG TAB PO SCH (08:58)
[2020-04-14] MEDS: METOPROLOL SUCC 25MG EXT REL TAB PO SCH (08:58)
[2020-04-14] MEDS: ESCITALOPRAM OXALATE 20 MG TAB PO SCH (08:58)
[2020-04-14] MEDS: MEMANTINE HCL 10 MG TAB PO SCH ×2 (08:58→20:55)
[2020-04-14] MEDS: FLUTICASONE PROPIONATE NA SPR 16 GM BTL SCH (08:58)
[2020-04-14] MEDS: PANTOprazole 40 MG TAB PO SCH (08:59)
[2020-04-14 11:05] LABS: MDA negative; MDEA negative; MDMA (Ecstasy) Urine, Confirm negative
--- NOTE | 2020-04-14 12:29 | Psychiatric Progress Note ---
Date of Service April 14, 2020 Impression / Recommendations Impression 79-year-old male with a history of depression and anxiety who presented with worsening mood and suicidal thoughts with multiple plans in the context of stressors including relationship with his fiance and work stress. 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 He is a poor historian for past medication trials, but indicates difficulty tolerating SSRIs in the past due to his IBS, although he has tolerated the escitalopram. Bupropion was held on admission as he appeared activated, was having mood swings and excessive spending, but does not endorse any other cr iteria for orly or hypomania. Nortriptyline was also tapered and discontinued, and we have reduced his lorazepam. He also has multiple comorbid medical conditions including chronic kidney disease, A. fib and anticoagulation with Coumadin. SI and HI are improving, but he remains anxious and severely ruminative. Family meeting scheduled today with his brother and fimiguelina. Inpatient treatment is medically necessary due to the severity of symptoms and risk for harm to himself or others if discharged. (1) Depression with suicidal ideation: 04/11 -hold bupropion given severe anxiety. Continue home doses of escitalopram 20 mg daily and melatonin 5 mg at bedtime, and explore options for augmentation (buspirone, lithium, atypical antipsychotic?). Patient does not recall any of his past medication trials, so spoke with his outpatient psychiatrist, who had no past history either. There is some indication that he may have had manic episodes in the past, but he is a limited historian and there are limited records available describing these episodes. We will need to monitor for activation. -Agree with outpatient psychiatrist that taper off nortriptyline would be beneficial to limit side effects and drug drug interactions, and also due to his chronic suicidality. Decreased to 10 mg at bedtime, will taper off. -Encouraged patient to attend and participate in groups and therapy, work on healthy coping skills, and discharge safety plan. -Family meeting with fianc and/or brother. Ensure brother has secured firearms and the patient will not have access to them until he is stabilized. -Recommend outpatient psychotherapy. 04/12 - Continue escitalopram and melatonin at this time. Received support from PCP and outpatient psychiatrist regarding discontinuation of nortriptyline, discussed with patient who is also agreeable with discontinuation at this time. - Family meeting with brother scheduled for tomorrow morning. Firearms have re portedly been secured. - Pt reporting willingness for therapy - Denied SI today, but could not convincingly contract for safety outside of the inpatient setting 04/13 -Family meeting with brother and fimiguelina today. Patient is now agreeing to individual psychotherapy, and would benefit from weekly sessions to work on his psychosocial stressors and stress management. -Continue escitalopram 20 mg daily. Consider addition of lithium or lamotrigine as augmentation for mood; history of chronic kidney disease so may want to avoid lithium, patient unsure if he wants to start more medications at this time. -Reviewed outpatient PCP, psychiatry, and neuropsychiatry records. Recommend referral for outpatient psychotherapy given longstanding depression and anxiety with significant psychosocial stressors contributing. Psychiatry records reviewed from Dr. Montalvo: Started treatment 05/2019, started on escitalopram and he reported improved mood, but concern for memory problems. He was initially continued on lorazepam 0.5 mg twice daily, with recommendations to eventually taper off due to age, fall risk, and cognitive impairment. Taper off nortriptyline recommended due to side effect risk and age. He was on bupropion XL 300 mg every morning and SR 150 mg in the afternoon, which was continued as he reported it had been helpful. Therapy was recommended, but he was not interested. Neuropsychology records from Jeff Jacobson PhD 06/2019, 07/2019, and 09/2019: Evaluated for cognitive dysfunction. Reported longstanding history of depression, anxiety, and panic. Reported worsening short-term memory and attention/concentration, getting lost in familiar places, difficulty remembering details of conversation, word finding difficulty. Reported feeling "stressed," with work, legal, and financial issues. He had a head CT in 2015 and brain MRI 2010 which were reviewed. The MRI showed global cerebral atrophy and small, patchy foci of T2/flair signal hyperintensity scattered in the bilateral periventricular and subcortical white matter. He denied a history of head injury or stroke, and reported 1 seizure of unknown etiology at age 8 or 9. Father had a history of CVAs, and 1 brother with a history of AD. 2 brothers and 1 sister still living, no known history of dementia. On testing, general intellectual functioning was estimated to be in the average to high average range, and effort was good. His overall performance was within normal variability across all cognitive domains assessed. He screened positive for moderate depression and anxiety. The neurocognitive profile did not raise significant concern of an incipient neurodegenerative condition, and it was felt that his depression, anxiety, and psychosocial stressors were contributing to cognitive impairment he had noticed. He was also taking Ativan daily which could impair cognition. Follow-up testing was recommended if further decline noted. 04/14 -Today, the patient reports that he, himself, has often thought that he actually has bipolar disorder, rather than unipolar depression. He is able to cite a number of examples that would be consistent with the diagnosis of hypomania. There is no evidence that would indicate that he has ever had delusional grandiosity, and there is also no clear evidence that he has engaged in deleterious impulsive behaviors. 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 At one level he is able to recognize that this seems to have been an irrational decision, and shortly thereafter he stated, "you cannot stand still in my business. You got to keep investing in it." When I said "well, a lot of people do not take out loans and obligate themselves when they are in the process of selling the business to someone else whose job it would be to keep the business from becoming stagnant," the patient said "you are right. It was probably really stupid. -Based on what the patient is telling me today, which is that he has a very long history of mood cycles that he describes as "up and down, sometimes over a matter of a few minutes, and other times over a matter of days or weeks," and based on the above symptoms, I would think that it is perhaps likely the patient does meet criteria for either bipolar disorder type II mixed pattern, or atypical cyclothymic disorder. -The patient agreed to a mood stabilizer. We discussed aripiprazole at a starting dose of 2.5 mg with a plan to titrate as indicated and tolerated. Aripiprazole can also be used in his case as an adjunct for his antidepressant, Lexapro. -Today, the patient tells me that he is chronically suicidal, has thoughts of suicide almost daily, and has never acted on them. However, he also acknowledges that he has had more frequent and more intensive thoughts of suicide and he notes that it has not been usual for him to voice suicidal thoughts to others. The patient reports that his brother is a family practitioner in another state, and after talking to his brother his brother told him "it is time for you to go to the hospital. You are not well." -Within the context of the patient's mood alterations he reports difficulty with sleep induction and sleep maintenance. He notes that prior to admission he had been taking lorazepam at bedtime together with nortriptyline, and this had allowed him to sleep better. I commented that his chart suggest that he had slept fairly well last night, and he said, "well I try to keep my eyes closed, but I really do not think I slept very much. The nurses probably thought I was asleep." We starting nortriptyline in his case would be not advisable given his history of cardiac arrhythmias. Lorazepam also runs a risk in elderly patients and the current goal is to taper and possibly discontinue lorazepam completely. Also, lorazepam has a relatively short half-life and part of the patient's complaint is sleep maintenance issues. He uses a CPAP and says that normally he can sleep "fairly well" when he is at home. Trazodone not be the best choice given its potential for cardiac side effects.. I talked to him about the possibility of using zolpidem (Ambien) for sleep. I reviewed the material risks and anticipated benefits of Ambien with the patient, and he indicated understanding. I explained that this would probably be a short-term solution during his hospital stay. -The patient agreed today to retract his 72-hour notice and remain in the hospital voluntarily. (2) Anxiety: 04/11 -resume SSRI as above, and continue home dose of lorazepam 0.5 3 times daily as needed. Ideally this would be tapered off given his multiple risk factors for negative outcome including age, polypharmacy, multiple medical problems, question of cognitive impairment/dementia (on memantine as an outpatient). 86 -taking lorazepam 0.5 mg 0-1 times daily here. Will reduce to once daily as needed, with recommendations to discontinue given risks Above. 8 -Patient reports that in the past selective serotonin reuptake inhibitors have exacerbated his irritable bowel syndrome symptoms, but he notes that so far Lexapro has had no side effects and he feels that he is tolerating it well. Because of my concern that the patient may actually have bipolar 1 disorder, mixed pattern, rather than simply a unipolar situational depression I feel the patient should also have a mood stabilizer on board. For that reason, we are beginning aripiprazole at 2.5 mg daily and we will titrate this as indicated. (3) Cognitive decline: 04/11-outpatient psychiatrist diagnosed cognitive disorder NOS and started memantine. Patient was referred for neuropsych testing but may have missed the appointment; if so, will need to be rescheduled at [facility]. -[facility] once patient has hearing aids and is able to participate appropriately. 04/12 - Patient participated in [facility] after hearing aid batteries were replaced. Pt scored a 25/30, demonstrating mild cognitive deficit. - Patient lost 1 point during alternating trail making for an error. 1 point lost in language assessment due to insertion of an additional syllable ("underneath"). 1 point lost in fluency as only 10 words were provided. 1 point lost in abstraction due to answer of "both have wheels" for "train- bicycle" analogy. 1 point lost for delayed recall. 04/13 -reviewed neuropsychiatry evaluation from -07/2019. Cognitive functioning was intact and impairment noted by the patient was thought to be secondary to anxiety, depression, Ativan use, and psychosocial stressors. Repeat testing to be scheduled if continued decline noted. -Patient is now on memantine and will defer decisions about continuing or discontinuing this medication to Dr. Montalvo. 04/14 -Today, the patient demonstrated reasonable recent memory. He recalls the correct date that he entered the hospital, the circumstances that led to his hospitalization, and he is able to identify various staff members by name and role. He also was able to process abstract information, although his rapidly tangential thoughts and rapid speech can sometimes interfere with communicating. (4) Dehydration: 04/11-BUN chronically elevated (21-29), and was 25 on admission. Creatinine has ranged from 1.2-1.57 in the past year and a half, and was 1.46 on admission. Likely dehydrated on admission, recheck BMP tomorrow. 04/13 -repeat BMP on 04/12/2020 showed BUN 21 and creatinine 1.48. (5) Hearing deficit: 04/11 -patient extremely hard of hearing, has only one hearing aid here and the battery is . Nursing staff contacting family to bring in the other hearing aid and new batteries. 04/14 -Patient reports that with his hearing aids he is now hearing well, and there was no problem in communicating with him in the normal tone of voice and volume. (6) Atrial fibrillation: 04/11 -continue metoprolol, warfarin held on admission due to INR of 3.3, and this morning it is 3.5. Consult coagulation clinic for input regarding dosing/INR monitoring. -Contacted Dr. Reyez for input re: Warfarin and INR. 04/12 - Pt revealed today that he is on a different Warfarin regimen than was initially documented. He showed this provider a card with the following schedule: 5mg on Fri, , and 2.5mg on Mon, Fri, Fri, Sat. - Pt states his dosing was adjusted prior to his colonoscopy - he was stop the medication from 03/31 - 04/04 and then take 5mg on 04/04 followed by 10mg on 04/05 and then resume his home dosing schedule - Resumed home medications today, as INR was within range at 2.8 - Will continue daily PT/INR per hospital protocol - Appreciate assistance from Dr. Reyez, who reported availability for further recommendations as needed 04/13 -Review of PCP records shows warfarin dose of 5 mg daily as of his last visit last month, but a card he has from the [facility] clinic shows a different dose schedule.. -INR today is 1.7. Continue with daily INRs, and if they do not stabilize within the therapeutic range, we will request consultation. (7) Hypertension: 04/11 -continue home doses of metoprolol and furosemide. (8) IBS (irritable bowel syndrome): 04/11 -continue home dose of nortriptyline 04/14 --nortriptyline has been discontinued. This medication would has potential cardiac side effects and the patient tells us today that without nortriptyline, he is not sleeping as well, but has not had irritable bowel syndrome symptoms and says that he is having normal, if slightly loose, bowel movements daily. (9) Vertigo: 04/11 -continue home dose of meclizine 04/14 -the patient reports that his vertigo is currently stable. 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 Chief Complaint "I've got a lot on me right now". Review of Systems Sleep Information Total Hours of Sleep: 6.5 Sleep Comments: 1:1 staff with pt. use of C-Pap at HS Meal Information Percent Meal Consumed - Breakfast: 100 Percent Meal Consumed - Lunch: 100 Percent Meal Consumed - Dinner: 75 Subjective Subjective Patient was seen & assessed and interval progress reviewed with treatment team. I met individually today with the patient in order to assess his current mental status, evaluate his response to treatment, coordinate with the patient any necessary changes in his treatment regimen, and address issues, questions and concerns that may arise. The patient begins by telling me that he has been under a great deal of stress related to his work situation and he stated, "basically, my employees stole my business from me!" He explained that he was trying to sell his business to his employees, and through certain decisions that he made based on familiarity with, and trust for, his long-term he managed to lose the business when the employees first gained control of the company and then rather than paying the patient for the business the employees turned around and sold the business to another company. He is currently involved in a lawsuit against the other company and he was able to provide details regarding the legal basis for the tort. He is also possibly suing or preparing to fred his former employees for acting contrary to the interest of their employer. The patient states, "this whole thing has really gotten to me. I feel stupid, and I feel betrayed by people that I really thought were my friends and that I trusted." The patient confirmed that, in fact, he had told his girlfriend that he was contemplating shooting himself or driving his car into an object at high speed in order to commit suicide. When asked when he began to experience depression, I expected him to say when he learned of the above referenced business reversals. Instead, the patient said, "for most of my adult life." I ask him if we could review the symptoms of depression, and he endorsed short-lived episodes of depressed mood, apathy, anergia, psychosocial withdrawal, and feelings of hopelessness, helplessness, and worthlessness with recurrent thoughts of suicide without plan or intent. The patient did not spontaneously stated, "I really think that I am bipolar." When I asked him to say why he thinks he has bipolar he said, "Well, my mood goes up and down pretty quickly. I may be depressed 1 minute and on top of the world the next minute." He goes on to describe a longstanding history of episodes during which she experiences racing thoughts and he says that other people, during these periods of time, will tell him that he is talking too much, talking too fast, and they cannot keep up with that which she is attempting to communicate. He also describes periods of increased energy and, and indicates that a fairly recent decision to take alone to expand his company at the same time that he was considering selling or closing the business might be considered an example of poor impulse control and an expansive mood. Nevertheless, the patient says that he has been sleeping fairly well recently, at home, but notes that here in the hospital he is sleeping poorlythe circumstance that he attributes to the fact that he had been taking lorazepam and nortriptyline at bedtime, and and both medications (at bedtime) have been stopped. His dose of lorazepam has been decreased from 0.5 mg 3 times daily (with 1 dose at bedtime) to lorazepam 0.5 mg once a day as needed, and he says that lorazepam at bedtime is not sufficient to keep him asleep without nortriptyline. I explained that in his case I would not recommend that he take nortriptyline because of the possible cardiac side effects, including ventricular arrhythmia and AV blockwithin the context of the fact that he seems to have a history of arrhythmia and, according the patient, atrial fibrillation. He had put in a 72-hour notice, but I explained to him that the hospital staff agrees that he is not yet [facility], which is when his 72-hour notice expires, so today, he agreed to and executed a retraction of a 72-hour notice. Physical Exam Psychiatric Orientation: alert, oriented x 3 and cooperative Apperance: appropriately dressed, appropriately groomed and appeared stated age The patient is fairly robust at the age of 79 and walks with a normal stride. Eye Contact: good eye contact Motor Behavior: steady gait and station Speech: + pressured speech (The patient speech is mildly pressured and it is sometimes difficult to interrupt him.) The patient's mood fluctuates rapidly during the encounter. At times, he appears depressed. More often, he comes across as elated and laughs loudly and somewhat inappropriately on a number of occasions. He also is quite animated. The patient acknowledges that his mood cycles up and down, sometimes from moment to moment. He also notes that there are times when he stays depressed for longer periods of time and other times where he has what he refers to as "orly" with increased energy, decreased desire for sleep, expansive and/or elated mood, and a tendency to experience racing thoughts. Thought Process: + flight of ideas Thought Content: reality based without delusions Suicidal Thoughts: + reports suicidal thoughts Patient acknowledges that he has had frequent suicidal thoughts throughout his entire life. He also reports that he has never made an actual suicide attempt, and laughs very loudly when he says, "I guess that tells you something about it!" He does acknowledge that the thoughts of suicide have become more frequent and more intense. Homicidal Thoughts: denies homicidal thoughts When asked specifically if he has had any thoughts of causing physical harm to the person or property of his former employees, he again laughed very loudly and said, "no, of course not. I will use my wax specialist." Hallucinations: no auditory hallucinations and no visual hallucinations Cognition: recent memory grossly intact (Correctly recalls the names of various staff members on the unit.) and remote memory grossly intact; + attention not intact Estimated Intelligence: + above average estimated intelligence Insight: + fair insight Judgement: + poor judgement Vital Signs (Past 24 Hours) Last Vital Signs Temp 36.7 C 04/14/20 06:54 Pulse 86 04/14/20 06:54 Resp 18 04/14/20 06:54 BP 123/74 04/14/20 06:54 Pulse Ox 97 04/10/20 18:52 Results & Data ([facility]) Laboratory Results Laboratory Results - last 24 hr 04/10/20 04/14/20 15:18 07:14 PT 16.6 H INR 1.6 H Urine MDEA negative MDMA negative Urine MDMA negative Current Inpatient Medications Current Inpatient Medications: Current Inpatient Medications Acetaminophen (Tylenol) 650 mg PO Q4H PRN PRN Reason: Headache or Minor Fever Stop: 05/10/20 18:02 Albuterol (Ventolin Hfa) 1 puffs INH Q4R PRN PRN Reason: SOB/WHEEZING Stop: 05/10/20 18:07 Allopurinol (Zyloprim) 100 mg PO DAILY [facility] Stop: 05/11/20 08:59 Last Admin: 04/14/20 08:58 Dose: 100 mg Documented by: Escitalopram Oxalate (Lexapro Tab) 20 mg PO DAILY [facility] Stop: 05/11/20 10:14 Last Admin: 04/14/20 08:58 Dose: 20 mg Documented by: Fluticasone Propionate (Flonase) 1 sprays NA DAILY ALE[facility]ANDRA Stop: 05/11/20 08:59 Last Admin: 04/14/20 08:58 Dose: 1 sprays Documented by: Furosemide (Lasix) 20 mg PO UD PRN PRN Reason: LEG SWELLING Stop: 05/10/20 18:07 Hyoscyamine (Levsin) 0.125 mg PO Q4H PRN PRN Reason: Abdominal Pain Lorazepam (Ativan) 0.5 mg PO DAILY PRN PRN Reason: Anxiety Stop: 05/10/20 18:07 Last Admin: 04/14/20 10:09 Dose: 0.5 mg Documented by: Meclizine HCl (Antivert) 25 mg PO TID PRN PRN Reason: Vertigo Stop: 05/10/20 20:59 Melatonin (Melatonin) 4.5 mg PO HS [facility] Stop: 05/11/20 21:59 Last Admin: 04/13/20 21:52 Dose: 4.5 mg Documented by: Memantine (Namenda) 10 mg PO BID ALEKSANDRA Stop: 05/10/20 20:59 Last Admin: 04/14/20 08:58 Dose: 10 mg Documented by: Metoprolol Succinate (Toprol Xl) 25 mg PO QAM [facility] Stop: 05/11/20 08:59 Last Admin: 04/14/20 08:58 Dose: 25 mg Documented by: Pantoprazole Sodium (Protonix) [facility] [place] Stop: 05/11/20 08:59 Last Admin: 04/14/20 08:59 Dose: 40 mg Documented by: Sodium Chloride ([place] Nasal) 1 - 2 sprays NA PRN PRN PRN Reason: Nasal Dryness/Congestion Stop: 05/10/20 18:02 Tamsulosin HCl (Flomax) 0.4 mg PO [facility] Stop: 05/10/20 20:59 Last Admin: 04/13/20 21:52 Dose: 0.4 mg Documented by: Warfarin Sodium (Coumadin) 5 mg PO [id number] [facility] Stop: 05/13/20 15:59 Last Admin: 04/13/20 17:20 Dose: 5 mg Documented by: Warfarin Sodium (Coumadin) 2.5 mg PO [id number] [facility] Stop: 05/12/20 17:59 Last Admin: 04/12/20 19:30 Dose: 2.5 mg Documented by: Mental Health & Subst Abuse Tx Psychiatrist Name of Psychiatrist: Lauri Montalvo Psychiatrist's Date of Appointment with Psychiatrist: 05/17/20 Time of Appointment with Psychiatrist: 10:30 a.m. Psychiatric Appointment Comment: Video call - follow link in email Post Discharge Appointments Primary Care Physician Name Of Family Doctor: Luari Felder Primary Care Date of Appointment with PCP: 04/24/20 Time of Appointment with PCP: 11:05 a.m. Provider Appointment Comment: Kenna Orozco Neurologist Name of Neurologist: Lauri Cardona Neurologist's Date of Appointment with Neurologist: 07/17/20 Time of Appointment with Neurologist: 9:05 a.m. Neurology Appointment Comment: Kenna Orozco Specialist Name of Specialist: [facility] Phone Number for Specialist: [phone] Date of Appointment with Specialist: 07/10/20 Time of Appointment with Specialist: 1:15 p.m. Specialty Appointment Comment: Shalini Chairez Contact Information Discharge Discharge Address: [address] [place] [address] [place], [place] [address]
[2020-04-14] MEDS: ARIPiprazole 5 MG TAB PO SCH (12:52)
[2020-04-14] MEDS ORDERED: WARFARIN SOD 2.5 MG TAB PO ONE (16:00)
[2020-04-14] MEDS ORDERED: WARFARIN SOD 5 MG TAB PO SCH (16:00)
[2020-04-14] MEDS: WARFARIN SOD 2.5 MG TAB PO SCH (17:01)
[2020-04-14] MEDS: TAMSULOSIN HCL 0.4 MG CAP PO SCH (20:55)
[2020-04-14] MEDS: MELATONIN 3 MG TAB PO SCH (20:56)
[2020-04-15] MEDS: LORazepam 0.5 MG TAB PO PRN (04:35)
[2020-04-15 07:51] LABS: Prothrombin Time 20.7 Seconds (9.0-12.0)
[2020-04-15] MEDS: MEMANTINE HCL 10 MG TAB PO SCH ×2 (09:14→21:03)
[2020-04-15] MEDS: PANTOprazole 40 MG TAB PO SCH (09:14)
[2020-04-15] MEDS: METOPROLOL SUCC 25MG EXT REL TAB PO SCH (09:14)
[2020-04-15] MEDS: ESCITALOPRAM OXALATE 20 MG TAB PO SCH (09:14)
[2020-04-15] MEDS: allopurinoL 100 MG TAB PO SCH (09:14)
[2020-04-15] MEDS: ARIPiprazole 5 MG TAB PO SCH (09:15)
[2020-04-15] MEDS: FLUTICASONE PROPIONATE NA SPR 16 GM BTL SCH (09:15)
--- NOTE | 2020-04-15 12:29 | Psychiatric Progress Note ---
Date of Service April 15, 2020 Impression / Recommendations Impression 79-year-old male with a history of depression and anxiety who presented with worsening mood and suicidal thoughts with multiple plans in the context of stressors including relationship with his fiance and work stress. 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 He is a poor historian for past medication trials, but indicates difficulty tolerating SSRIs in the past due to his IBS, although he has tolerated the escitalopram. Bupropion was held on admission as he appeared activated, was having mood swings and excessive spending, but does not endorse any other cr iteria for orly or hypomania. Nortriptyline was also tapered and discontinued, and we have reduced his lorazepam. He also has multiple comorbid medical conditions including chronic kidney disease, A. fib and anticoagulation with Coumadin. SI and HI are improving, but he remains anxious and severely ruminative. Family meeting occurred 04/14. Nortritpyline and bupropion were discontinued and abilify was added , starting at 2.5mg and being titrated to 5mg am as of 04/16. Firearms secured Inpatient treatment is medically necessary due to the severity of symptoms and risk for harm to himself or others if discharged. (1) Depression with suicidal ideation: 04/11 -hold bupropion given severe anxiety. Continue home doses of escitalopram 20 mg daily and melatonin 5 mg at bedtime, and explore options for augmentation (buspirone, lithium, atypical antipsychotic?). Patient does not recall any of his past medication trials, so spoke with his outpatient psychiatrist, who had no past history either. There is some indication that he may have had manic episodes in the past, but he is a limited historian and there are limited records available describing these episodes. We will need to monitor for activation. -Agree with outpatient psychiatrist that taper off nortriptyline would be beneficial to limit side effects and drug drug interactions, and also due to his chronic suicidality. Decreased to 10 mg at bedtime, will taper off. -Encouraged patient to attend and participate in groups and therapy, work on healthy coping skills, and discharge safety plan. -Family meeting with fianc and/or brother. Ensure brother has secured firearms and the patient will not have access to them until he is stabilized. -Recommend outpatient psychotherapy. 04/12 - Continue escitalopram and melatonin at this time. Received support from PCP and outpatient psychiatrist regarding discontinuation of nortriptyline, discussed with patient who is also agreeable with discontinuation at this time. - Family meeting with brother scheduled for tomorrow morning. Firearms have reportedly been secured. - Pt reporting willingness for therapy - Denied SI today, but could not convincingly contract for safety outside of the inpatient setting 04/13 -Family meeting with brother and fianc today. Patient is now agreeing to individual psychotherapy, and would benefit from weekly sessions to work on his psychosocial stressors and stress management. -Continue escitalopram 20 mg daily. Consider addition of lithium or lamotrigine as augmentation for mood; history of chronic kidney disease so may want to avoid lithium, patient unsure if he wants to start more medications at this time. -Reviewed outpatient PCP, psychiatry, and neuropsychiatry records. Recommend referral for outpatient psychotherapy given longstanding depression and anxiety with significant psychosocial stressors contributing. Psychiatry records reviewed from Dr. Montalvo: Started treatment 05/2019, started on escitalopram and he reported improved mood, but concern for memory problems. He was initially continued on lorazepam 0.5 mg twice daily, with recommendations to eventually taper off due to age, fall risk, and cognitive impairment. Taper off nortriptyline recommended due to side effect risk and age. He was on bupropion XL 300 mg every morning and SR 150 mg in the afternoon, which was continued as he reported it had been helpful. Therapy was recommended, but he was not interested. Neuropsychology records from Jeff Jacobson PhD 06/2019, 07/2019, and 09/2019: Evaluated for cognitive dysfunction. Reported longstanding history of depression, anxiety, and panic. Reported worsening short-term memory and attention/concentration, getting lost in familiar places, difficulty remembering details of conversation, word finding difficulty. Reported feeling "stressed," with work, legal, and financial issues. He had a head CT in 2015 and brain MRI 2010 which were reviewed. The MRI showed global cerebral atrophy and small, patchy foci of T2/flair signal hyperintensity scattered in the bilateral periventricular and subcortical white matter. He denied a history of head injury or stroke, and reported 1 seizure of unknown etiology at age 8 or 9. Father had a history of CVAs, and 1 brother with a history of AD. 2 brothers and 1 sister still living, no known history of dementia. On testing, general intellectual functioning was estimated to be in the average to high average range, and effort was good. His overall performance was within normal variability across all cognitive domains assessed. He screened positive for moderate depression and anxiety. The neurocognitive profile did not raise significant concern of an incipient neurodegenerative condition, and it was felt that his depression, anxiety, and psychosocial stressors were contributing to cognitive impairment he had noticed. He was also taking Ativan daily which could impair cognition. Follow-up testing was recommended if further decline noted. 04/14 -Today, the patient reports that he, himself, has often thought that he actually has bipolar disorder, rather than unipolar depression. He is able to cite a number of examples that would be consistent with the diagnosis of hypomania. There is no evidence that would indicate that he has ever had delusional grandiosity, and there is also no clear evidence that he has engaged in deleterious impulsive behaviors. 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 At one level he is able to recognize that this seems to have been an irrational decision, and shortly thereafter he stated, "you cannot stand still in my business. You got to keep investing in it." When I said "well, a lot of people do not take out loans and obligate themselves when they are in the process of selling the business to someone else whose job it would be to keep the business from becoming stagnant," the patient said "you are right. It was probably really stupid. -Based on what the patient is telling me today, which is that he has a very long history of mood cycles that he describes as "up and down, sometimes over a matter of a few minutes, and other times over a matter of days or weeks," and based on the above symptoms, I would think that it is perhaps likely the patient does meet criteria for either bipolar disorder type II mixed pattern, or atypical cyclothymic disorder. -The patient agreed to a mood stabilizer. We discussed aripiprazole at a starting dose of 2.5 mg with a plan to titrate as indicated and tolerated. Aripiprazole can also be used in his case as an adjunct for his antidepressant, Lexapro. -Today, the patient tells me that he is chronically suicidal, has thoughts of suicide almost daily, and has never acted on them. However, he also acknowledg es that he has had more frequent and more intensive thoughts of suicide and he notes that it has not been usual for him to voice suicidal thoughts to others. The patient reports that his brother is a family practitioner in another state, and after talking to his brother his brother told him "it is time for you to go to the hospital. You are not well." -Within the context of the patient's mood alterations he reports difficulty with sleep induction and sleep maintenance. He notes that prior to admission he had been taking lorazepam at bedtime together with nortriptyline, and this had allowed him to sleep better. I commented that his chart suggest that he had slept fairly well last night, and he said, "well I try to keep my eyes closed, but I really do not think I slept very much. The nurses probably thought I was asleep." We starting nortriptyline in his case would be not advisable given his history of cardiac arrhythmias. Lorazepam also runs a risk in elderly patients and the current goal is to taper and possibly discontinue lorazepam completely. Also, lorazepam has a relatively short half-life and part of the patient's complaint is sleep maintenance issues. He uses a CPAP and says that normally he can sleep "fairly well" when he is at home. Trazodone not be the best choice given its potential for cardiac side effects.. I talked to him about the possibility of using zolpidem (Ambien) for sleep. I reviewed the material risks and anticipated benefits of Ambien with the patient, and he indicated understanding. I explained that this would probably be a short-term solution during his hospital stay. -The patient agreed today to retract his 72-hour notice and remain in the hospital voluntarily. 04/15 raised abilily to 5mg qam as of 04/16 dose, mindful of 2d6 interaction of bupropion that was just recently discontinued but can be a potential impact of abilify blood levels for a bit of time still. (2) Anxiety: 04/11 -resume SSRI as above, and continue home dose of lorazepam 0.5 3 times daily as needed. Ideally this would be tapered off given his multiple risk factors for negative outcome including age, polypharmacy, multiple medical problems, question of cognitive impairment/dementia (on memantine as an outpatient). 04/13 -taking lorazepam 0.5 mg 0-1 times daily here. Will reduce to once daily as needed, with recommendations to discontinue given risks Above. 04/14 -Patient reports that in the past selective serotonin reuptake inhibitors have exacerbated his irritable bowel syndrome symptoms, but he notes that so far Lexapro has had no side effects and he feels that he is tolerating it well. Because of my concern that the patient may actually have bipolar 1 disorder, mixed pattern, rather than simply a unipolar situational depression I feel the patient should also have a mood stabilizer on board. For that reason, we are beginning aripiprazole at 2.5 mg daily and we will titrate this as indicated. (3) Cognitive decline: 04/11-outpatient psychiatrist diagnosed cognitive disorder NOS and started memantine. Patient was referred for neuropsych testing but may have missed the appointment; if so, will need to be rescheduled at [facility]. -M[facility]A once patient has hearing aids and is able to participate appropriately. 04/12 - Patient participated in [facility] after hearing aid batteries were replaced. Pt scored a 25/30, demonstrating mild cognitive deficit. - Patient lost 1 point during alternating trail making for an error. 1 point lost in language assessment due to insertion of an additional syllable ("underneath"). 1 point lost in fluency as only 10 words were provided. 1 point lost in abstraction due to answer of "both have wheels" for "train- bicycle" analogy. 1 point lost for delayed recall. 04/13 -reviewed neuropsychiatry evaluation from -07/2019. Cognitive functioning was intact and impairment noted by the patient was thought to be secondary to anxiety, depression, Ativan use, and psychosocial stressors. Repeat testing to be scheduled if continued decline noted. -Patient is now on memantine and will defer decisions about continuing or discontinuing this medication to Dr. Montalvo. 04/14 -Today, the patient demonstrated reasonable recent memory. He recalls the correct date that he entered the hospital, the circumstances that led to his hospitalization, and he is able to identify various staff members by name and role. He also was able to process abstract information, although his rapidly tangential thoughts and rapid speech can sometimes interfere with communicating. (4) Dehydration: 04/11-BUN chronically elevated (21-29), and was 25 on admission. Creatinine has ranged from 1.2-1.57 in the past year and a half, and was 1.46 on admission. Likely dehydrated on admission, recheck BMP tomorrow. 04/13 -repeat BMP on 04/12/2020 showed BUN 21 and creatinine 1.48. (5) Hearing deficit: 04/11 -patient extremely hard of hearing, has only one hearing aid here and the battery is . Nursing staff contacting family to bring in the other he aring aid and new batteries. 04/14 -Patient reports that with his hearing aids he is now hearing well, and there was no problem in communicating with him in the normal tone of voice and volume. (6) Atrial fibrillation: 04/11 -continue metoprolol, warfarin held on admission due to INR of 3.3, and this morning it is 3.5. Consult coagulation clinic for input regarding dosing/INR monitoring. -Contacted Dr. Reyez for input re: Warfarin and INR. 04/12 - Pt revealed today that he is on a different Warfarin regimen than was initially documented. He showed this provider a card with the following schedule: 5mg on Fri, , and 2.5mg on Mon, Fri, Fri, Sat. - Pt states his dosing was adjusted prior to his colonoscopy - he was stop the medication from 03/31 - 04/04 and then take 5mg on 04/04 followed by 10mg on 04/05 and then resume his home dosing schedule - Resumed home medications today, as INR was within range at 2.8 - Will continue daily PT/INR per hospital protocol - Appreciate assistance from Dr. Reyez, who reported availability for further recommendations as needed 04/13 -Review of PCP records shows warfarin dose of 5 mg daily as of his last visit last month, but a card he has from the [facility] clinic shows a different dose schedule.. -INR today is 1.7. Continue with daily INRs, and if they do not stabilize withi n the therapeutic range, we will request consultation. (7) Hypertension: 04/11 -continue home doses of metoprolol and furosemide. (8) IBS (irritable bowel syndrome): 04/11 -continue home dose of nortriptyline 04/14 --nortriptyline has been discontinued. This medication would has potential cardiac side effects and the patient tells us today that without nortriptyline, he is not sleeping as well, but has not had irritable bowel syndrome symptoms and says that he is having normal, if slightly loose, bowel movements daily. 04/15 -simethicone added prn to help alleviate any potential GI discomfort (9) Vertigo: 04/11 -continue home dose of meclizine 04/14 -the patient reports that his vertigo is currently stable. 04/15 -continues to indicate vertigo is stable Risk Factors Assessment Male: Yes : Yes Do You Have Access To A Gun?: Yes Health Problems: Yes Mental Health Diagnoses: Yes Substance Use Disorders: No Previous Attempt: No Family History of Suicide: No Previous Psychiatric Hospitalization: No Hopelessness: Yes Smoker: No Protective Factors Assessment : No Responsible for Young Children: No Employed: Yes ([email or web address]) Stable Relationships: Yes Supportive Family: Yes Good Rapport with Provider: Yes Interval History Identifying Information PAVEL SEGURA is a 79-year-old M who currently lives in [place] with his fiance, has a history of depression, and was admitted on 04/10/20 18:03 on a 201 voluntary commitment for depression, SI with multiple plans, and HI. Chief Complaint "anxious...know it takes time to see how these medication changes will work". Review of Systems Sleep Information Total Hours of Sleep: 6.75 Sleep Comments: 1:1 staff with pt. use of C-Pap at HS Meal Information Percent Meal Consumed - Breakfast: 100 Percent Meal Consumed - Lunch: 100 Percent Meal Consumed - Dinner: 100 Subjective Subjective Patient was seen & assessed and interval progress reviewed with nursing and social work. Pt assessed by quality analyst/technical writer in his room with him laying on his bed. He had fair eye contact. He appeared to be preoccupied by his thoughts during the interview. he indicated being anxious and that reading keeping his mind distracted from his st ressors. He is planning to talk to his tax attorney on Friday. he appears to be wondering about the option of dropping the lawsuit but not sure about that option financially or emotionally as of yet. He denied SI or H. he endorsed that his mood is not that depressed today. He indicated not getting the ambien last night and had some insomnia that was alleviated by low dose Ativan per pt. He used his CPAP last night. He denied s/e to starting abilfiy at 2.5mg a day to date. He is comfortable with the medicaitons changes that are occurring in the hospital Physical Exam Psychiatric Orientation: alert, oriented x 3 and cooperative Apperance: appropriately dressed, appropriately groomed and appeared stated age Eye Contact: + fair eye contact Motor Behavior: steady gait and station and no abnormal motor movements Speech: normal rate/rhythm/volume of speech Affect: + anxious affect and + constricted affect Mood: + anxious mood Thought Process: goal directed thought process and clear/coherent thought process Thought Content: + preoccupation and reality based without delusions Suicidal Thoughts: denies suicidal thoughts Homicidal Thoughts: denies homicidal thoughts Hallucinations: no auditory hallucinations and no visual hallucinations Cognition: recent memory grossly intact (Correctly recalls the names of various staff members on the unit.), remote memory grossly intact and language grossly intact; + attention not intact Estimated Intelligence: consistent with education level and + above average estimated intelligence Insight: + fair insight Judgement: + fair judgement Vital Signs (Past 24 Hours) Last Vital Signs Temp 37.0 C 04/15/20 06:28 Pulse 61 04/15/20 06:30 Resp 18 04/15/20 06:28 BP 111/78 04/15/20 06:30 Pulse Ox 97 04/10/20 18:52 Results & Data ([facility]) Laboratory Results Laboratory Results - last 24 hr 04/15/20 07:29 PT 20.7 H INR 2.0 H Current Inpatient Medications Current Inpatient Medications: Current Inpatient Medications Acetaminophen (Tylenol) 650 mg PO Q4H PRN PRN Reason: Headache or Minor Fever Stop: 05/10/20 18:02 Albuterol (Ventolin Hfa) 1 puffs INH Q4R PRN PRN Reason: SOB/WHEEZING Stop: 05/10/20 18:07 Allopurinol (Zyloprim) 100 mg PO DAILY ALEKSANDRA Stop: 05/11/20 08:59 Last Admin: 04/15/20 09:14 Dose: 100 mg Documented by: Aripiprazole (Abilify) 2.5 mg PO QAM ALEKSADNRA Stop: 05/14/20 12:44 Last Admin: 04/15/20 09:15 Dose: 2.5 mg Documented by: Escitalopram Oxalate (Lexapro Tab) 20 mg PO DAILY ALEKSANDRA Stop: 05/11/20 10:14 Last Admin: 04/15/20 09:14 Dose: 20 mg Documented by: Fluticasone Propionate (Flonase) 1 sprays NA DAILY [facility] Stop: 05/11/20 08:59 Last Admin: 04/15/20 09:15 Dose: 1 sprays Documented by: Furosemide (Lasix) 20 mg PO UD PRN PRN Reason: LEG SWELLING Stop: 05/10/20 18:07 Hyoscyamine (Levsin) 0.125 mg PO Q4H PRN PRN Reason: Abdominal Pain Lorazepam (Ativan) 0.25 mg PO BID PRN PRN Reason: Anxiety Stop: 05/14/20 16:52 Last Admin: 04/15/20 04:35 Dose: 0.25 mg Documented by: Meclizine HCl (Antivert) 25 mg PO TID PRN PRN Reason: Vertigo Stop: 05/10/20 20:59 Melatonin (Melatonin) 4.5 mg PO [facility] Stop: 05/11/20 21:59 Last Admin: 04/14/20 20:56 Dose: 4.5 mg Documented by: Memantine (Namenda) 10 mg PO BID [facility] Stop: 05/10/20 20:59 Last Admin: 04/15/20 09:14 Dose: 10 mg Documented by: Metoprolol Succinate (Toprol Xl) 25 mg PO QAM [facility] Stop: 05/11/20 08:59 Last Admin: 04/15/20 09:14 Dose: 25 mg Documented by: Pantoprazole Sodium (Protonix) 40 mg PO QAM [facility]; Protocol Stop: 05/11/20 08:59 Last Admin: 04/15/20 09:14 Dose: 40 mg Documented by: Simethicone (Mylicon) 80 mg PO Q6H PRN PRN Reason: gas Stop: 05/15/20 12:04 Sodium Chloride (Kingfisher Nasal) 1 - 2 sprays NA PRN PRN PRN Reason: Nasal Dryness/Congestion Stop: 05/10/20 18:02 Tamsulosin HCl (Flomax) 0.4 mg PO [facility] Stop: 05/10/20 20:59 Last Admin: 04/14/20 20:55 Dose: 0.4 mg Documented by: Warfarin Sodium (Coumadin) 5 mg PO [id number]@1600 [facility] Stop: 05/13/20 15:59 Last Admin: 04/13/20 17:20 Dose: 5 mg Documented by: Warfarin Sodium (Coumadin) 2.5 mg PO [id number]@1600 ALEKSANDRA Stop: 05/12/20 17:59 Last Admin: 04/14/20 17:01 Dose: 2.5 mg Documented by: Zolpidem Tartrate (Ambien) 5 mg PO HS PRN PRN Reason: Sleep Stop: 05/14/20 12:45 Mental Health & Subst Abuse Tx Psychiatrist Name of Psychiatrist: Lauri Montalvo Psychiatrist's Date of Appointment with Psychiatrist: 05/17/20 Time of Appointment with Psychiatrist: 10:30 a.m. Psychiatric Appointment Comment: Video call - follow link in email Therapist Name of Therapist: Lauri Therapist's Therapy Appointment Comment: Will contact you to establish your intake (referral faxed) Post Discharge Appointments Primary Care Physician Name Of Family Doctor: Lauri Felder Primary Care Date of Appointment with PCP: 04/24/20 Time of Appointment with PCP: 11:05 a.m. Provider Appointment Comment: Kenna Orozco Neurologist Name of Neurologist: Lauri Cardona Neurologist's Date of Appointment with Neurologist: 07/17/20 Time of Appointment with Neurologist: 9:05 a.m. Neurology Appointment Comment: Kenna Orozco Specialist Name of Specialist: Lauri Cardiology Phone Number for Specialist: [phone] Date of Appointment with Specialist: 07/10/20 Time of Appointment with Specialist: 1:15 p.m. Specialty Appointment Comment: Shalini Chairez Other #1: Name of Aftercare Appointment: Lauri - Pulmonology Phone Number of Aftercare Appointment: [phone] Date of Aftercare Appointment: 08/01/20 Time of Aftercare Appointment: 9:15 a.m. Aftercare Appointment Comment: Shalini Chairez Contact Information Discharge Discharge Address: [address] [place] [id number]
[2020-04-15] MEDS: SIMETHICONE 80 MG CHEW PO PRN (13:11)
[2020-04-15] MEDS: WARFARIN SOD 2.5 MG TAB PO SCH (16:00)
[2020-04-15] MEDS: ZOLPIDEM TARTRATE 5 MG TAB PO PRN (21:03)
[2020-04-15] MEDS: MELATONIN 3 MG TAB PO SCH (21:04)
[2020-04-15] MEDS: TAMSULOSIN HCL 0.4 MG CAP PO SCH (21:04)
[2020-04-16] MEDS: LORazepam 0.5 MG TAB PO PRN (08:04)
[2020-04-16] MEDS: ARIPiprazole 5 MG TAB PO SCH (08:25)
[2020-04-16] MEDS: FLUTICASONE PROPIONATE NA SPR 16 GM BTL SCH (08:26)
[2020-04-16] MEDS: ESCITALOPRAM OXALATE 20 MG TAB PO SCH (08:26)
[2020-04-16] MEDS: allopurinoL 100 MG TAB PO SCH (08:27)
[2020-04-16] MEDS: METOPROLOL SUCC 25MG EXT REL TAB PO SCH (08:27)
[2020-04-16] MEDS: PANTOprazole 40 MG TAB PO SCH (08:27)
[2020-04-16] MEDS: MEMANTINE HCL 10 MG TAB PO SCH ×2 (08:27→21:18)
[2020-04-16 08:55] LABS: INR 2.4 (0.9-1.1); Prothrombin Time 23.8 Seconds (9.0-12.0)
--- NOTE | 2020-04-16 14:30 | Psychiatric Progress Note ---
Date of Service April 16, 2020 Impression / Recommendations Impression 79-year-old male with a history of depression and anxiety who presented with worsening mood and suicidal thoughts with multiple plans in the context of stressors including relationship with his fiance and work stress. 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 He is a poor historian for past medication trials, but indicates difficulty tolerating SSRIs in the past due to his IBS, although he has tolerated the escitalopram. Bupropion was held on admission as he appeared activated, was having mood swings and excessive spending, but does not endorse any other cr iteria for orly or hypomania. Nortriptyline was also tapered and discontinued, and we have reduced his lorazepam. He also has multiple comorbid medical conditions including chronic kidney disease, A. fib and anticoagulation with Coumadin. SI and HI are improving, but he remains anxious and severely ruminative. Family meeting occurred 04/14. Nortritpyline and bupropion were discontinued and abilify was added , abiilfy started at 2.5mg and titrated to 5mg am as of 04/16. Firearms secured. Pt is becomeing less internally preoccupied and more settled and easier to engage with over the hosptial course. Inpatient treatment is medically necessary due to the severity of symptoms and risk for harm to himself or others if discharged. (1) Depression with suicidal ideation: 04/11 -hold bupropion given severe anxiety. Continue home doses of escitalopram 20 mg daily and melatonin 5 mg at bedtime, and explore options for augmentation (buspirone, lithium, atypical antipsychotic?). Patient does not recall any of his past medication trials, so spoke with his outpatient psychiatrist, who had no past history either. There is some indication that he may have had manic episodes in the past, but he is a limited historian and there are limited records available describing these episodes. We will need to monitor for activation. -Agree with outpatient psychiatrist that taper off nortriptyline would be beneficial to limit side effects and drug drug interactions, and also due to his chronic suicidality. Decreased to 10 mg at bedtime, will taper off. -Encouraged patient to attend and participate in groups and therapy, work on healthy coping skills, and discharge safety plan. -Family meeting with fianc and/or brother. Ensure brother has secured firearms and the patient will not have access to them until he is stabilized. -Recommend outpatient psychotherapy. 04/12 - Continue escitalopram and melatonin at this time. Received support from PCP a nd outpatient psychiatrist regarding discontinuation of nortriptyline, discussed with patient who is also agreeable with discontinuation at this time. - Family meeting with brother scheduled for tomorrow morning. Firearms have reportedly been secured. - Pt reporting willingness for therapy - Denied SI today, but could not convincingly contract for safety outside of the inpatient setting 04/13 -Family meeting with brother and fianc today. Patient is now agreeing to individual psychotherapy, and would benefit from weekly sessions to work on his psychosocial stressors and stress management. -Continue escitalopram 20 mg daily. Consider addition of lithium or lamotrigine as augmentation for mood; history of chronic kidney disease so may want to avoid lithium, patient unsure if he wants to start more medications at this time. -Reviewed outpatient PCP, psychiatry, and neuropsychiatry records. Recommend referral for outpatient psychotherapy given longstanding depression and anxiety with significant psychosocial stressors contributing. Psychiatry records reviewed from Dr. Montalvo: Started treatment 05/2019, started on escitalopram and he reported improved mood, but concern for memory problems. He was initially continued on lorazepam 0.5 mg twice daily, with recommendations to eventually taper off due to age, fall risk, and cognitive impairment. Taper off nortriptyline recommended due to side effect risk and age. He was on bupropion XL 300 mg every morning and SR 150 mg in the afternoon, which was continued as he reported it had been helpful. Therapy was recommended, but he was not interested. Neuropsychology records from Jeff Jacobson PhD 06/2019, 07/2019, and 09/2019: Evaluated for cognitive dysfunction. Reported longstanding history of depression, anxiety, and panic. Reported worsening short-term memory and attention/concentration, getting lost in familiar places, difficulty remembering details of conversation, word finding difficulty. Reported feeling "stressed," with work, legal, and financial issues. He had a head CT in 2015 and brain MRI 2010 which were reviewed. The MRI showed global cerebral atrophy and small, patchy foci of T2/flair signal hyperintensity scattered in the bilateral periventricular and subcortical white matter. He denied a history of head injury or stroke, and reported 1 seizure of unknown etiology at age 8 or 9. Father had a history of CVAs, and 1 brother with a history of AD. 2 brothers and 1 sister still living, no known history of dementia. On testing, general intellectual functioning was estimated to be in the average to high average range, and effort was good. His overall performance was within normal variability across all cognitive domains assessed. He screened positive for moderate depression and anxiety. The neurocognitive profile did not raise significant concern of an incipient neurodegenerative condition, and it was felt that his depression, anxiety, and psychosocial stressors were contributing to cognitive impairment he had noticed. He was also taking Ativan daily which could impair cognition. Follow-up testing was recommended if further decline noted. 04/14 -Today, the patient reports that he, himself, has often thought that he actually has bipolar disorder, rather than unipolar depression. He is able to cite a number of examples that would be consistent with the diagnosis of hypomania. There is no evidence that would indicate that he has ever had delusional grandiosity, and there is also no clear evidence that he has engaged in deleterious impulsive behaviors. 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 At one level he is able to recognize that this seems to have been an irrational decision, and shortly thereafter he stated, "you cannot stand still in my business. You got to keep investing in it." When I said "well, a lot of people do not take out loans and obligate themselves when they are in the process of selling the business to someone else whose job it would be to keep the business from becoming stagnant," the patient said "you are right. It was probably really stupid. -Based on what the patient is telling me today, which is that he has a very long history of mood cycles that he describes as "up and down, sometimes over a matter of a few minutes, and other times over a matter of days or weeks," and based on the above symptoms, I would think that it is perhaps likely the patient does meet criteria for either bipolar disorder type II mixed pattern, or atypical cyclothymic disorder. -The patient agreed to a mood stabilizer. We discussed aripiprazole at a starti ng dose of 2.5 mg with a plan to titrate as indicated and tolerated. Aripiprazole can also be used in his case as an adjunct for his antidepressant, Lexapro. -Today, the patient tells me that he is chronically suicidal, has thoughts of suicide almost daily, and has never acted on them. However, he also acknowledges that he has had more frequent and more intensive thoughts of suicide and he notes that it has not been usual for him to voice suicidal thoughts to others. The patient reports that his brother is a family practitioner in another state, and after talking to his brother his brother told him "it is time for you to go to the hospital. You are not well." -Within the context of the patient's mood alterations he reports difficulty with sleep induction and sleep maintenance. He notes that prior to admission he had been taking lorazepam at bedtime together with nortriptyline, and this had allowed him to sleep better. I commented that his chart suggest that he had slept fairly well last night, and he said, "well I try to keep my eyes closed, but I really do not think I slept very much. The nurses probably thought I was asleep." We starting nortriptyline in his case would be not advisable given his history of cardiac arrhythmias. Lorazepam also runs a risk in elderly patients and the current goal is to taper and possibly discontinue lorazepam completely. Also, lorazepam has a relatively short half-life and part of the patient's complaint is sleep maintenance issues. He uses a CPAP and says that normally he can sleep "fairly well" when he is at home. Trazodone not be the best choice given its potential for cardiac side effects.. I talked to him about the possibility of using zolpidem (Ambien) for sleep. I reviewed the material risks and anticipated benefits of Ambien with the patient, and he indicated understanding. I explained that this would probably be a short-term solution during his hospital stay. -The patient agreed today to retract his 72-hour notice and remain in the hospital voluntarily. 04/15 raised abilily to 5mg qam as of 04/16 dose, mindful of 2d6 interaction of bupropion that was just recently discontinued but can be a potential impact of abilify blood levels for a bit of time still. 04/16 maintained meds unchanged (2) Anxiety: 04/11 -resume SSRI as above, and continue home dose of lorazepam 0.5 3 times daily as needed. Ideally this would be tapered off given his multiple risk factors for negative outcome including age, polypharmacy, multiple medical problems, question of cognitive impairment/dementia (on memantine as an outpatient). 04/13 -taking lorazepam 0.5 mg 0-1 times daily here. Will reduce to once daily as needed, with recommendations to discontinue given risks Above. 04/14 -Patient reports that in the past selective serotonin reuptake inhibitors have exacerbated his irritable bowel syndrome symptoms, but he notes that so far Lexapro has had no side effects and he feels that he is tolerating it well. Because of my concern that the patient may actually have bipolar 1 disorder, mixed pattern, rather than simply a unipolar situational depression I feel the patient should also have a mood stabilizer on board. For that reason, we are beginning aripiprazole at 2.5 mg daily and we will titrate this as indicated. 04/16 maintained meds unchanged. provided education of that addition of abilfiy and stopping of some of his other medications might be alleivaitng his symptoms and that can likely get by with notable less ativan usage ot address his anxiety (3) Cognitive decline: 04/11-outpatient psychiatrist diagnosed cognitive disorder NOS and started memantine. Patient was referred for neuropsych testing but may have missed the appointment; if so, will need to be rescheduled at [facility]. -[facility] once patient has hearing aids and is able to participate appropriately. 04/12 - Patient participated in MoCA after hearing aid batteries were replaced. Pt scored a 25/30, demonstrating mild cognitive deficit. - Patient lost 1 point during alternating trail making for an error. 1 point lost in language assessment due to insertion of an additional syllable ("underneath"). 1 point lost in fluency as only 10 words were provided. 1 point lost in abstraction due to answer of "both have wheels" for "train- bicycle" analogy. 1 point lost for delayed recall. 04/13 -reviewed neuropsychiatry evaluation from -07/2019. Cognitive functioning was intact and impairment noted by the patient was thought to be secondary to anxiety, depression, Ativan use, and psychosocial stressors. Repeat testing to be scheduled if continued decline noted. -Patient is now on memantine and will defer decisions about continuing or di scontinuing this medication to Dr. Montalvo. 04/14 -Today, the patient demonstrated reasonable recent memory. He recalls the correct date that he entered the hospital, the circumstances that led to his hospitalization, and he is able to identify various staff members by name and role. He also was able to process abstract information, although his rapidly tangential thoughts and rapid speech can sometimes interfere with communicating. 04/16 cognitive functioning seems to be improving further as pt is becoming more clearheaded and less internally preoccupied and thought process normalizing and as he is using his hearing aids (4) Dehydration: 04/11-BUN chronically elevated (21-29), and was 25 on admission. Creatinine has ranged from 1.2-1.57 in the past year and a half, and was 1.46 on admission. Likely dehydrated on admission, recheck BMP tomorrow. 04/13 -repeat BMP on 04/12/2020 showed BUN 21 and creatinine 1.48. (5) Hearing deficit: 04/11 -patient extremely hard of hearing, has only one hearing aid here and the battery is . Nursing staff contacting family to bring in the other hearing aid and new batteries. 04/14 -Patient reports that with his hearing aids he is now hearing well, and there was no problem in communicating with him in the normal tone of voice and volume. (6) Atrial fibrillation: 04/11 -continue metoprolol, warfarin held on admission due to INR of 3.3, and this morning it is 3.5. Consult coagulation clinic for input regarding dosing/INR monitoring. -Contacted Dr. Reyez for input re: Warfarin and INR. 04/12 - Pt revealed today that he is on a different Warfarin regimen than was initially documented. He showed this provider a card with the following schedule: 5mg on Fri, , and 2.5mg on Fri, Fri, Fri, Sat. - Pt states his dosing was adjusted prior to his colonoscopy - he was stop the medication from 03/31 - 04/04 and then take 5mg on 04/04 followed by 10mg on 04/05 and then resume his home dosing schedule - Resumed home medications today, as INR was within range at 2.8 - Will continue daily PT/INR per hospital protocol - Appreciate assistance from Dr. Reyez, who reported availability for further recommendations as needed 04/13 -Review of PCP records shows warfarin dose of 5 mg daily as of his last visit last month, but a card he has from the [facility] clinic shows a different dose schedule.. -INR today is 1.7. Continue with daily INRs, and if they do not stabilize within the therapeutic range, we will request consultation. (7) Hypertension: 04/11 -continue home doses of metoprolol and furosemide. (8) IBS (irritable bowel syndrome): 04/11 -continue home dose of nortriptyline 04/14 --nortriptyline has been discontinued. This medication would has potential cardiac side effects and the patient tells us today that without nortriptyline, he is not sleeping as well, but has not had irritable bowel syndrome symptoms and says that he is having normal, if slightly loose, bowel movements daily. 04/15 -simethicone added prn to help alleviate any potential GI discomfort (9) Vertigo: 04/11 -continue home dose of meclizine 04/14 -the patient reports that his vertigo is currently stable. 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 Chief Complaint "feeling better and slept better". Review of Systems Sleep Information Total Hours of Sleep: 7.25 Sleep Comments: 1:1 for cpap use Meal Information Percent Meal Consumed - Breakfast: 100 Percent Meal Consumed - Lunch: 100 Percent Meal Consumed - Dinner: 100 Subjective Subjective Patient was seen & assessed and interval progress reviewed with nursing and social work. Pt shared how slept well last night he felt racey and jived up this morning and this settled down after taking 0.25mg of ativan this morning. He now feels rather good and calm and rather relaxed. He is not feeling distressed at the time of the assessment. He denied any lightheadedness or vertigo. He denied akathisia or EPS. HE shared how would took 2-3 doses of Ativan in general as an outpatient at 0.5mg doses and is glad that he is feeling calmer with smaller doses of Ativan. He feels that his concentration has improved. He is eating his meals fully with nl appetite CPAP being used. denied SI or HI. Physical Exam Psychiatric Orientation: alert, oriented x 3, oriented to person and cooperative Apperance: appropriately dressed, appropriately groomed and appeared stated age Eye Contact: good eye contact Motor Behavior: steady gait and station and no abnormal motor movements Speech: normal rate/rhythm/volume of speech Affect: euthymic affect and mood congruent with affect mood now anxious at time of assessment was anxious and jived up earlier in the morning though Thought Process: goal directed thought process and clear/coherent thought process Thought Content: + preoccupation and reality based without delusions Suicidal Thoughts: denies suicidal thoughts and denies suicidal intent Homicidal Thoughts: denies homicidal thoughts Hallucinations: no auditory hallucinations and no visual hallucinations Cognition: recent memory grossly intact (Correctly recalls the names of various staff members on the unit.), remote memory grossly intact, attention grossly intact and language grossly intact Estimated Intelligence: consistent with education level and + above average estimated intelligence Insight: + fair insight Judgement: + fair judgement Vital Signs (Past 24 Hours) Last Vital Signs Temp 36.6 C 04/16/20 06:00 Pulse 77 04/16/20 06:43 Resp 18 04/16/20 06:00 BP 115/74 04/16/20 06:43 Pulse Ox 97 04/10/20 18:52 Results & Data ([facility]) Laboratory Results Laboratory Results - last 24 hr 04/16/20 08:27 PT 23.8 H INR 2.4 H Current Inpatient Medications Current Inpatient Medications: Current Inpatient Medications Acetaminophen (Tylenol) 650 mg PO Q4H PRN PRN Reason: Headache or Minor Fever Stop: 05/10/20 18:02 Albuterol (Ventolin Hfa) 1 puffs INH Q4R PRN PRN Reason: SOB/WHEEZING Stop: 05/10/20 18:07 Allopurinol (Zyloprim) 100 mg PO DAILY ALEKSANDRA Stop: 05/11/20 08:59 Last Admin: 04/16/20 08:27 Dose: 100 mg Documented by: [facility] Stop: 05/16/20 08:59 Last Admin: 04/16/20 08:25 Dose: 5 mg Documented by: Escitalopram Oxalate (Lexapro Tab) 20 mg PO DAILY [facility] Stop: 05/11/20 10:14 Last Admin: 04/16/20 08:26 Dose: 20 mg Documented by: Fluticasone Propionate (Flonase) 1 sprays NA DAILY [facility] Stop: 05/11/20 08:59 Last Admin: 04/16/20 08:26 Dose: 1 sprays Documented by: Furosemide (Lasix) 20 mg PO UD PRN PRN Reason: LEG SWELLING Stop: 05/10/20 18:07 Hyoscyamine (Levsin) 0.125 mg PO Q4H PRN PRN Reason: Abdominal Pain Lorazepam (Ativan) 0.25 mg PO BID PRN PRN Reason: Anxiety Stop: 05/14/20 16:52 Last Admin: 04/16/20 08:04 Dose: 0.25 mg Documented by: Meclizine HCl (Antivert) 25 mg PO TID PRN PRN Reason: Vertigo Stop: 05/10/20 20:59 Melatonin (Melatonin) 4.5 mg PO [facility] Stop: 05/11/20 21:59 Last Admin: 04/15/20 21:04 Dose: 4.5 mg Documented by: Memantine (Namenda) 10 mg PO BID [facility] Stop: 05/10/20 20:59 Last Admin: 04/16/20 08:27 Dose: 10 mg Documented by: Metoprolol Succinate (Toprol Xl) 25 mg PO [facility] Stop: 05/11/20 08:59 Last Admin: 04/16/20 08:27 Dose: 25 mg Documented by: Pantoprazole Sodium (Protonix) 40 mg PO [facility]; Protocol Stop: 05/11/20 08:59 Last Admin: 04/16/20 08:27 Dose: 40 mg Documented by: Simethicone (Mylicon) 80 mg PO Q6H PRN PRN Reason: gas Stop: 05/15/20 12:04 Last Admin: 04/15/20 13:11 Dose: 80 mg Documented by: Sodium Chloride (Faxon Nasal) 1 - 2 sprays NA PRN PRN PRN Reason: Nasal Dryness/Congestion Stop: 05/10/20 18:02 Tamsulosin HCl (Flomax) 0.4 mg PO HS [facility] Stop: 05/10/20 20:59 Last Admin: 04/15/20 21:04 Dose: 0.4 mg Documented by: Warfarin Sodium (Coumadin) 5 mg PO [id number] ALEKSANDRA Stop: 05/13/20 15:59 Last Admin: 04/13/20 17:20 Dose: 5 mg Documented by: Warfarin Sodium (Coumadin) 2.5 mg PO [id number] ALEKSANDRA Stop: 05/12/20 17:59 Last Admin: 04/15/20 16:00 Dose: 2.5 mg Documented by: Zolpidem Tartrate (Ambien) 5 mg PO HS PRN PRN Reason: Sleep Stop: 05/14/20 12:45 Last Admin: 04/15/20 21:03 Dose: 5 mg Documented by: Mental Health & Subst Abuse Tx Psychiatrist Name of Psychiatrist: Lauri Montalvo Psychiatrist's Date of Appointment with Psychiatrist: 05/17/20 Time of Appointment with Psychiatrist: 10:30 a.m. Psychiatric Appointment Comment: Video call - follow link in email Therapist Name of Therapist: Lauri Therapist's Therapy Appointment Comment: Will contact you to establish your intake (referral faxed) Post Discharge Appointments Primary Care Physician Name Of Family Doctor: Lauri Felder [facility] Date of Appointment with PCP: 04/24/20 Time of Appointment with PCP: 11:05 a.m. Provider Appointment Comment: Kenna Orozco Neurologist Name of Neurologist: Lauri Cardona Neurologist's Date of Appointment with Neurologist: 07/17/20 Time of Appointment with Neurologist: 9:05 a.m. Neurology Appointment Comment: Kenna Orozco Specialist Name of Specialist: Lauri Cardiology Phone Number for Specialist: [phone] Date of Appointment with Specialist: 07/10/20 Time of Appointment with Specialist: 1:15 p.m. Specialty Appointment Comment: Shalini Chairez Contact Information Discharge Discharge Address: [address] [place] [address], [place] [address]
[2020-04-16] MEDS: WARFARIN SOD 5 MG TAB PO SCH (17:17)
[2020-04-16] MEDS: TAMSULOSIN HCL 0.4 MG CAP PO SCH (21:18)
[2020-04-16] MEDS: MELATONIN 3 MG TAB PO SCH (21:19)
[2020-04-16] MEDS: ZOLPIDEM TARTRATE 5 MG TAB PO PRN (21:22)
[2020-04-17 06:00] VITALS: BP 131/80; TEMP 97.9
[2020-04-17] MEDS: LORazepam 0.5 MG TAB PO PRN (06:08)
[2020-04-17 07:57] LABS: INR 2.4 (0.9-1.1); Prothrombin Time 24.5 Seconds (9.0-12.0)
[2020-04-17] MEDS: METOPROLOL SUCC 25MG EXT REL TAB PO SCH (08:51)
[2020-04-17] MEDS: PANTOprazole 40 MG TAB PO SCH (08:51)
[2020-04-17] MEDS: MEMANTINE HCL 10 MG TAB PO SCH (08:51)
[2020-04-17] MEDS: allopurinoL 100 MG TAB PO SCH (08:52)
[2020-04-17] MEDS: ESCITALOPRAM OXALATE 20 MG TAB PO SCH (08:52)
[2020-04-17] MEDS: ARIPiprazole 5 MG TAB PO SCH (08:52)
[2020-04-17] MEDS: FLUTICASONE PROPIONATE NA SPR 16 GM BTL SCH (08:52)
[2020-04-17] MEDS: SIMETHICONE 80 MG CHEW PO PRN (09:46)
--- NOTE | 2020-04-17 11:40 | Discharge Summary ---
Date of Service April 17, 2020 History of Present Illness The patient presented to the ER yesterday, 04/10/2020, reporting worsening mood in the context of multiple stressors. 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 He reported low mood, decreased interest, concentration, and energy, daily crying spells, difficulty functioning, and decreased self-care. He also reported racing thoughts and anxiety, paranoid thoughts that he is being watched or followed and that people are out to get him, stating that about a year ago 12 of his employees left and he thought it was a conspiracy. He also reported homicidal thoughts to shoot "the people who stole my company." Additional stressors are relationship strain with his fiance whom he lives with and financial problems. He reported good sleep, 9 to 10 hours a night. His brother was contacted in the ER and agreed to secure the patient's guns. He had noticed the patient having "drastic highs and lows," and that he was spending excessively and buying unnecessary items. Admission labs notable for normal CBC, INR 3.3, chloride 109, BUN 25, creatinine 1.46, glucose 101, alkaline phosphatase 120, albumin 3.2, TSH 1.660, negative UA, UDS + MDMA. FLP and glucose performed this morning were within normal limits. Head CT in the ER due to mental status change and recent fall on Coumadin showed no acute intracranial hemorrhage, mass, hematoma, or acute infarct, but moderate cerebellar atrophy. EKG showed atrial fibrillation with a QTC of 452. Per ER doctor there was no evidence of acute ischemia. Repeat PT/INR ordered for this morning, INR 3.5. Patient was admitted voluntarily and continued on memantine, lorazepam prn, and nortriptyline; bupropion and escitalopram were held due to concern for manic symptoms. 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 He says he does not work much now and that his company is "pretty much shut down." He also reports relationship strain with his fiance, and stress related to having IBS. He describes frequent mood swings throughout the day, stating he will "feel really good 1 hour, then 2 hours later I'm depressed." This occurs 2-3 times a day, and worsened over the past couple of weeks. He reports suicidal thoughts have been more intense as well, but denies taking any steps to act on them, stating his children and grandchildren are protective. He started having crying spells 1 to 2 weeks ago. He also reports significant anxiety, worrying constantly, with racing thoughts, difficulty controlling the worry, impaired focus, and at times feels he "will freeze up." He reports anxiety going as far back as middle school, but did not recognize it as anxiety until many years later. He denies symptoms consistent with orly, hallucinations, and delusions. He does report paranoia with concerns that employees and company may have plotted against him. He is not sure if he has had any recent medication changes. Physical Exam Psychiatric Orientation: alert, oriented x 3 and cooperative (and pleasant) Apperance: appropriately dressed (casually, in button down shirt and scrub pants), appropriately groomed and appeared stated age Eye Contact: good eye contact Motor Behavior: no abnormal motor movements (observed while sitting on edge of bed) Speech: normal rate/rhythm/volume of speech (rambling at times) Affect: euthymic affect and mood congruent with affect Mood: + anxious mood; no depressed mood ("Slowly better") Thought Process: goal directed thought process and clear/coherent thought process Thought Content: reality based without delusions; no hopelessness and no worthlessness Suicidal Thoughts: denies suicidal thoughts, denies suicidal plan and denies suicidal intent Homicidal Thoughts: denies homicidal thoughts Hallucinations: no auditory hallucinations and no visual hallucinations Cognition: recent memory grossly intact, attention grossly intact and language grossly intact Estimated Intelligence: consistent with education level Insight: + fair insight Judgement: + fair judgement Vital Signs (Past 24 Hours) Last Vital Signs Temp 36.6 C 04/17/20 05:59 Pulse 80 04/17/20 06:00 Resp 18 04/17/20 05:59 BP 131/80 04/17/20 06:00 Pulse Ox 97 04/10/20 18:52 Principal Diagnosis - Depression with suicidal ideation; r/o bipolar disorder - Anxiety Psychiatric Data 79-year-old male with a history of depression and anxiety who was admitted voluntarily for inpatient psychiatric treatment on 04/10/2020 due to depression with SI. Pt presented with worsening mood and suicidal thoughts with multiple plans in the context of stressors including relationship with his fianc and work stress. He endorsed thoughts of harming people who he believes have sabotaged the company he owns, though later reported this was not true homicidal ideation. He was initially a poor historian for past medication trials, but indicated difficulty tolerating SSRIs in the past due to his IBS. Home dose of escitalopram 20mg was continued. Lorazepam was tapered to discontinuation and nortriptyline was discontinued due to concern for significant side effects, interactions with other medications, and increased lethality in overdose with consideration of reports of SI. Bupropion was held on admission as he appeared activated, was having mood swings and excessive spending, but initially did not verbalize any other criteria for orly or hypomania. Later in his stay, patient verbalized more significant criteria, and the diagnosis of bipolar disorder was reconsidered. Pt was started on aripiprazole, and dose was titrated to 5mg daily. Fasting glucose and lipid panel were obtained on 04/11/2020 and all values were WNL. Due to concern for cognitive decline, and seeing as the patient is prescribed Namenda, a MoCA assessment was completed. Pt scored a 25/30, demonstrating some mild cognitive impairment (see hospital course for details of assessment). Pt also has multiple comorbid medical conditions including hypertension, IBS, and A. fib on anticoagulation with Coumadin. On initial presentation, patient was supratherapeutic on Coumadin and INR was 3.5 and 3.8. Assistance was requested from the Anticoagulation clinic for initial recommendations. After adjustments, patient was resumed on home Coumadin dosage, and levels had been within range for 3 days prior to discharge home. Pt continued to appear rather anxious and continued to be preoccupied with rum inations surrounding closing his business and associated lawsuits. Pt did invite his fiance and his brother to participate in a family meeting via phone to discuss these concerns. Pt permitted coordination of care with his outpatient psychiatrist, and was agreeable with referral for outpatient therapy. Over the course of his admission, patient participated in several groups which encouraged development and use of healthy coping strategies. He reported improvement in mood and anxiety and resolution of SI. Based on review of patient's case and their current presentation, risk of harm to self or others is no longer perceived to be acute. Management of symptoms on an outpatient basis seems the most appropriate and least restrictive setting. Pt seems appropriate for discharge with recommendation for consistent follow-up with outpatient psychiatric prescriber and therapist. Pt verbalized understanding of discharge plan reviewed and is agreeable with plan to be discharged home today. Day of Discharge Assessment Patient's case was reviewed and discussed during treatment team. Staff report the patient has been attending some group programming and has continued to receive support from his brother and fiance. Aftercare appointments have been arranged, and Lauri will be following up with the patient directly to schedule therapy. Pt did report to staff that he feels the addition of aripiprazole has been helpful for his mood and level of anxiety. Pt was seen today to assess readiness for discharge. Pt reports "my IBS is a bit off today." He continues to be preoccupied with his bowel movements, but admits that he feels he will be able to better manage his symptoms outside of the hospital setting. Pt admits his mood has been "slowly better" and he denies SI for the past several days. Pt does feel he is functioning better and denies safety concerns related to discharge. He admits to ongoing anxiety related to closing his business, but feels reassured with the support he has from his fiance and brother. We discussed plan to discontinue lorazepam on discharge, and patient will be provided with a 72-hour supply of zolpidem for sleep. We discussed co-pay for aripiprazole being ~$100 a month, and patient felt he would be able to afford this prescription. We discussed steps patient should take if he feels this is no longer financially feasible. Pt reports willingness to follow-up with [facility] for therapy services and denies questions related to aftercare appointments. Pt denied SI and is future oriented in conversation. He denies safety concerns and is requesting discharge home today. Pt feels treatment goals have been attained. ROS: Constitutional: reports improved sleep last evening Cardiovascular: denied Respiratory: denied Gastrointestinal: reports GI spasms, slightly worsened IBS symptoms (bloating, discomfort, urgency of BMs) Neurological: denied Psychiatric: denies symptoms other than stated above Total of at least 10 systems reviewed, pertinent positives as above and in HPI. Transition of Care Transition Of Care Record: was reviewed with the patient Advance Directives Advance Directives Information Provided: Yes Advance Directives: Yes (unsure where it is) Mental Health Advance Directive: No Advance Directives on File: No Living Will: No Power of Gynecological Assistant: No Advance Directives Reason:: Declines as Mental Health Visit. Risk Factors Assessment Presenting risk factors reviewed on discharge. Precipitating stressors mitigated by: admission for inpatient psychiatric observation and treatment, appropriate adjustments to medications to target symptoms, attendance of therapeutic treatment groups, development of healthy and effective coping strategies, involvement of outpatient supports, completion of a safety plan, confirmation of guns and weapons being secured, treatment of medical conditions and education on diagnoses. Pt has demonstrated improvement in condition with regard to improvement in mood, improved cognitive state, resolution of SI, involvement of outpatient supports in discharge and safety planning. At this time, patient is requesting discharge and is no longer considered to be at acute risk of harm to himself or others. Pt will be discharged with recommendation for ongoing outpatient psychiatric treatment. 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 Relationships: Yes Supportive Family: Yes Good Rapport with Provider: Yes Tobacco Cessation at Discharge Tobacco Cessation Medication Prescribed at Discharge: Not Applicable/Non-Smoker Total Time Total Time Spent: Greater Than 30 Minutes Total Time Includes: Examination of the patient, Discharge Planning, Medication Reconciliation and Communication with other providers Discharge Data Lab Results 04/10/20 04/10/20 04/10/20 14:13 14:13 14:13 WBC 6.31 RBC 5.16 Hgb 15.7 Hct 46.7 MCV 90.5 MCH 30.4 MCHC 33.6 RDW Std Deviation 51.6 H RDW Coeff of [place] 15.4 H Plt Count 159 MPV 10.3 Immature Gran % (Auto) 0.2 Neut % (Auto) 63.4 Lymph % (Auto) 26.5 [place] % (Auto) 6.2 Eos % (Auto) 3.5 Baso % (Auto) 0.2 Neut # (Auto) 4.01 Lymph # (Auto) 1.67 [place] # (Auto) 0.39 Eos # (Auto) 0.22 Baso # (Auto) 0.01 Immature Gran # (Auto) 0.01 PT INR APTT PTT Ratio Sodium 140 Potassium 4.0 Chloride 109 H Carbon Dioxide 23 Anion Gap 8.0 BUN 25 H Creatinine 1.46 H Est Cr Clr Drug Dosing 53.4 Est GFR ( Amer) 53.0 Est GFR (Non-Af Amer) 45.7 BUN/Creatinine Ratio 16.8 Glucose 101 H Fasting Glucose Calcium 8.5 Total Bilirubin 0.6 AST 24 ALT 24 Alkaline Phosphatase 120 H Total Protein 7.4 Albumin 3.2 L Globulin 4.2 H Albumin/Globulin Ratio 0.8 L Triglycerides Cholesterol LDL Cholesterol, Calc VLDL Cholesterol, Calc HDL Cholesterol Cholesterol/HDL Ratio TSH 1.660 Urine Color Urine Appearance Urine pH Ur Specific [place] Urine Protein Urine Glucose (UA) Urine Ketones Urine Blood Urine Nitrite Urine Bilirubin Urine Urobilinogen Ur Leukocyte Esterase Salicylates < 1.7 L Urine Opiates Screen Ur Methadone, Qual Acetaminophen < 2 L Urine Barbiturates Ur Phencyclidine (PCP) U Amphetamin/Meth Scrn Urine MDEA MDMA (Ecstasy) Screen MDMA Urine MDMA U Benzodiazepines Scrn Ur Cocaine Metabolite U Marijuana (THC) Screen Ethyl Alcohol mg/dL 04/10/20 04/10/20 04/10/20 14:13 14:13 15:18 WBC RBC Hgb Hct MCV MCH MCHC RDW Std Deviation RDW Coeff of [place] Plt Count MPV Immature Gran % (Auto) Neut % (Auto) Lymph % (Auto) [place] % (Auto) Eos % (Auto) Baso % (Auto) Neut # (Auto) Lymph # (Auto) [place] # (Auto) Eos # (Auto) Baso # (Auto) Immature Gran # (Auto) PT 32.5 H INR 3.3 H APTT 44.0 H PTT Ratio 1.6 Sodium Potassium Chloride Carbon Dioxide Anion Gap BUN Creatinine Est Cr Clr Drug Dosing Est GFR ( Amer) Est GFR (Non-Af Amer) BUN/Creatinine Ratio Glucose Fasting Glucose Calcium Total Bilirubin AST ALT Alkaline Phosphatase Total Protein Albumin Globulin Albumin/Globulin Ratio Triglycerides Cholesterol LDL Cholesterol, Calc VLDL Cholesterol, Calc HDL Cholesterol Cholesterol/HDL Ratio TSH Urine Color Urine Appearance Urine pH Ur Specific [place] Urine Protein Urine Glucose (UA) Urine Ketones Urine Blood Urine Nitrite Urine Bilirubin Urine Urobilinogen Ur Leukocyte Esterase Salicylates Urine Opiates Screen Neg Ur Methadone, Qual Neg Acetaminophen Urine Barbiturates Neg Ur Phencyclidine (PCP) Neg U Amphetamin/Meth Scrn Neg Urine MDEA MDMA (Ecstasy) Screen Pos H MDMA Urine MDMA U Benzodiazepines Scrn Neg Ur Cocaine Metabolite Neg U Marijuana (THC) Screen Neg Ethyl Alcohol mg/dL < 3.0 04/10/20 04/10/20 04/11/20 15:18 15:18 07:32 WBC RBC Hgb Hct MCV MCH MCHC RDW Std Deviation RDW Coeff of [place] Plt Count MPV Immature Gran % (Auto) Neut % (Auto) Lymph % (Auto) [place] % (Auto) Eos % (Auto) Baso % (Auto) Neut # (Auto) Lymph # (Auto) [place] # (Auto) Eos # (Auto) Baso # (Auto) Immature Gran # (Auto) PT 34.1 H INR 3.5 H APTT PTT Ratio Sodium Potassium Chloride Carbon Dioxide Anion Gap BUN Creatinine Est Cr Clr Drug Dosing Est GFR ( Amer) Est GFR (Non-Af Amer) BUN/Creatinine Ratio Glucose Fasting Glucose Calcium Total Bilirubin AST ALT Alkaline Phosphatase Total Protein Albumin Globulin Albumin/Globulin Ratio Triglycerides Cholesterol LDL Cholesterol, Calc VLDL Cholesterol, Calc HDL Cholesterol Cholesterol/HDL Ratio TSH Urine Color Yellow Urine Appearance Clear Urine pH 5.0 Ur Specific [place] 1.015 Urine Protein Negative Urine Glucose (UA) Negative Urine Ketones Negative Urine Blood Negative Urine Nitrite Negative Urine Bilirubin Negative Urine Urobilinogen Negative Ur Leukocyte Esterase Negative Salicylates Urine Opiates Screen Ur Methadone, Qual Acetaminophen Urine Barbiturates Ur Phencyclidine (PCP) U Amphetamin/Meth Scrn Urine MDEA negative MDMA (Ecstasy) Screen MDMA negative Urine MDMA negative U Benzodiazepines Scrn Ur Cocaine Metabolite U Marijuana (THC) Screen Ethyl Alcohol mg/dL 04/11/20 04/11/20 04/12/20 07:32 11:22 07:35 WBC RBC Hgb Hct MCV MCH MCHC RDW Std Deviation RDW Coeff of [place] Plt Count MPV Immature Gran % (Auto) Neut % (Auto) Lymph % (Auto) [place] % (Auto) Eos % (Auto) Baso % (Auto) Neut # (Auto) Lymph # (Auto) [place] # (Auto) Eos # (Auto) Baso # (Auto) Immature Gran # (Auto) PT 37.2 H 25.6 H INR 3.8 H 2.6 H APTT PTT Ratio Sodium Potassium Chloride Carbon Dioxide Anion Gap BUN Creatinine Est Cr Clr Drug Dosing Est GFR ( Amer) Est GFR (Non-Af Amer) BUN/Creatinine Ratio Glucose Fasting Glucose 90 Calcium Total Bilirubin AST ALT Alkaline Phosphatase Total Protein Albumin Globulin Albumin/Globulin Ratio Triglycerides 138 Cholesterol 160 LDL Cholesterol, Calc 96 VLDL Cholesterol, Calc 28 HDL Cholesterol 36 Cholesterol/HDL Ratio 4 TSH Urine Color Urine Appearance Urine pH Ur Specific [place] Urine Protein Urine Glucose (UA) Urine Ketones Urine Blood Urine Nitrite Urine Bilirubin Urine Urobilinogen Ur Leukocyte Esterase Salicylates Urine Opiates Screen Ur Methadone, Qual Acetaminophen Urine Barbiturates Ur Phencyclidine (PCP) U Amphetamin/Meth Scrn Urine MDEA MDMA (Ecstasy) Screen MDMA Urine MDMA U Benzodiazepines Scrn Ur Cocaine Metabolite U Marijuana (THC) Screen Ethyl Alcohol mg/dL 04/12/20 04/13/20 04/14/20 07:35 07:14 07:14 WBC RBC Hgb Hct MCV MCH MCHC RDW Std Deviation RDW Coeff of [place] Plt Count MPV Immature Gran % (Auto) Neut % (Auto) Lymph % (Auto) [place] % (Auto) Eos % (Auto) Baso % (Auto) Neut # (Auto) Lymph # (Auto) [place] # (Auto) Eos # (Auto) Baso # (Auto) Immature Gran # (Auto) PT 17.8 H 16.6 H INR 1.7 H 1.6 H APTT PTT Ratio Sodium 142 Potassium 3.8 Chloride 110 H Carbon Dioxide 26 Anion Gap 6.0 BUN 21 H Creatinine 1.48 H Est Cr Clr Drug Dosing 52.7 Est GFR ( Amer) 52.1 Est GFR (Non-Af Amer) 45.0 BUN/Creatinine Ratio 14.1 Glucose 97 Fasting Glucose Calcium 8.3 L Total Bilirubin AST ALT Alkaline Phosphatase Total Protein Albumin Globulin Albumin/Globulin Ratio Triglycerides Cholesterol LDL Cholesterol, Calc VLDL Cholesterol, Calc HDL Cholesterol Cholesterol/HDL Ratio TSH Urine Color Urine Appearance Urine pH Ur Specific [place] Urine Protein Urine Glucose (UA) Urine Ketones Urine Blood Urine Nitrite Urine Bilirubin Urine Urobilinogen Ur Leukocyte Esterase Salicylates Urine Opiates Screen Ur Methadone, Qual Acetaminophen Urine Barbiturates Ur Phencyclidine (PCP) U Amphetamin/Meth Scrn Urine MDEA MDMA (Ecstasy) Screen MDMA Urine MDMA U Benzodiazepines Scrn Ur Cocaine Metabolite U Marijuana (THC) Screen Ethyl Alcohol mg/dL 04/15/20 04/16/20 04/17/20 07:29 08:27 07:36 WBC RBC Hgb Hct MCV MCH MCHC RDW Std Deviation RDW Coeff of [place] Plt Count MPV Immature Gran % (Auto) Neut % (Auto) Lymph % (Auto) [place] % (Auto) Eos % (Auto) Baso % (Auto) Neut # (Auto) Lymph # (Auto) [place] # (Auto) Eos # (Auto) Baso # (Auto) Immature Gran # (Auto) PT 20.7 H 23.8 H 24.5 H INR 2.0 H 2.4 H 2.4 H APTT PTT Ratio Sodium Potassium Chloride Carbon Dioxide Anion Gap BUN Creatinine Est Cr Clr Drug Dosing Est GFR ( Amer) Est GFR (Non-Af Amer) BUN/Creatinine Ratio Glucose Fasting Glucose Calcium Total Bilirubin AST ALT Alkaline Phosphatase Total Protein Albumin Globulin Albumin/Globulin Ratio Triglycerides Cholesterol LDL Cholesterol, Calc VLDL Cholesterol, Calc HDL Cholesterol Cholesterol/HDL Ratio TSH Urine Color Urine Appearance Urine pH Ur Specific [place] Urine Protein Urine Glucose (UA) Urine Ketones Urine Blood Urine Nitrite Urine Bilirubin Urine Urobilinogen Ur Leukocyte Esterase Salicylates Urine Opiates Screen Ur Methadone, Qual Acetaminophen Urine Barbiturates Ur Phencyclidine (PCP) U Amphetamin/Meth Scrn Urine MDEA MDMA (Ecstasy) Screen MDMA Urine MDMA U Benzodiazepines Scrn Ur Cocaine Metabolite U Marijuana (THC) Screen Ethyl Alcohol mg/dL Hospital Course (1) Depression with suicidal ideation: 04/11 -hold bupropion given severe anxiety. Continue home doses of escitalopram 20 mg daily and melatonin 5 mg at bedtime, and explore options for augmentation (buspirone, lithium, atypical antipsychotic?). Patient does not recall any of his past medication trials, so spoke with his outpatient psychiatrist, who had no past history either. There is some indication that he may have had manic episodes in the past, but he is a limited historian and there are limited records available describing these episodes. We will need to monitor for activation. -Agree with outpatient psychiatrist that taper off nortriptyline would be beneficial to limit side effects and drug drug interactions, and also due to his chronic suicidality. Decreased to 10 mg at bedtime, will taper off. -Encouraged patient to attend and participate in groups and therapy, work on healthy coping skills, and discharge safety plan. -Family meeting with fianc and/or brother. Ensure brother has secured firearms and the patient will not have access to them until he is stabilized. -Recommend outpatient psychotherapy. 04/12 - Continue escitalopram and melatonin at this time. Received support from PCP and outpatient psychiatrist regarding discontinuation of nortriptyline, discussed with patient who is also agreeable with discontinuation at this time. - Family meeting with brother scheduled for tomorrow morning. Firearms have reportedly been secured. - Pt reporting willingness for therapy - Denied SI today, but could not convincingly contract for safety outside of the inpatient setting 04/13 -Family meeting with brother and fianc today. Patient is now agreeing to individual psychotherapy, and would benefit from weekly sessions to work on his psychosocial stressors and stress management. -Continue escitalopram 20 mg daily. Consider addition of lithium or lamotrigine as augmentation for mood; history of chronic kidney disease so may want to avoid lithium, patient unsure if he wants to start more medications at this time. -Reviewed outpatient PCP, psychiatry, and neuropsychiatry records. Recommend referral for outpatient psychotherapy given longstanding depression and anxiety with significant psychosocial stressors contributing. Psychiatry records reviewed from Dr. Montalvo: Started treatment 05/2019, started on escitalopram and he reported improved mood, but concern for memory problems. He was initially continued on lorazepam 0.5 mg twice daily, with recommendations to eventually taper off due to age, fall risk, and cognitive impairment. Taper off nortriptyline recommended due to side effect risk and age. He was on bupropion XL 300 mg every morning and SR 150 mg in the afternoon, which was continued as he reported it had been helpful. Therapy was recommended, but he was not interested. Neuropsychology records from Jeff Jacobson PhD 06/2019, 07/2019, and 09/2019: Evaluated for cognitive dysfunction. Reported longstanding history of depression, anxiety, and panic. Reported worsening short-term memory and attention/concentration, getting lost in familiar places, difficulty remembering details of conversation, word finding difficulty. Reported feeling "stressed," with work, legal, and financial issues. He had a head CT in 2015 and brain MRI 2010 which were reviewed. The MRI showed global cerebral atrophy and small, patchy foci of T2/flair signal hyperintensity scattered in the bilateral periventricular and subcortical white matter. He denied a history of head injury or stroke, and reported 1 seizure of unknown etiology at age 8 or 9. Father had a history of CVAs, and 1 brother with a history of AD. 2 brothers and 1 sister still living, no known history of dementia. On testing, general intellectual functioning was estimated to be in the average to high average range, and effort was good. His overall performance was within normal variability across all cognitive domains assessed. He screened positive for moderate depression and anxiety. The neurocognitive profile did not raise significant concern of an incipient neurodegenerative condition, and it was felt that his depression, anxiety, and psychosocial stressors were contributing to cognitive impairment he had noticed. He was also taking Ativan daily which could impair cognition. Follow-up testing was recommended if further decline noted. 04/14 -Today, the patient reports that he, himself, has often thought that he actually has bipolar disorder, rather than unipolar depression. He is able to cite a number of examples that would be consistent with the diagnosis of hypomania. There is no evidence that would indicate that he has ever had delusional grandiosity, and there is also no clear evidence that he has engaged in deleterious impulsive behaviors. 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 At one level he is able to recognize that this seems to have been an irrational decision, and shortly thereafter he stated, "you cannot stand still in my business. You got to keep investing in it." When I said "well, a lot of people do not take out loans and obligate themselves when they are in the process of selling the business to someone else whose job it would be to keep the business from becoming stagnant," the patient said "you are right. It was probably really stupid. -Based on what the patient is telling me today, which is that he has a very long history of mood cycles that he describes as "up and down, sometimes over a matter of a few minutes, and other times over a matter of days or weeks," and based on the above symptoms, I would think that it is perhaps likely the patient does meet criteria for either bipolar disorder type II mixed pattern, or atypical cyclothymic disorder. -The patient agreed to a mood stabilizer. We discussed aripiprazole at a starting dose of 2.5 mg with a plan to titrate as indicated and tolerated. Aripiprazole can also be used in his case as an adjunct for his antidepressant, Lexapro. -Today, the patient tells me that he is chronically suicidal, has thoughts of suicide almost daily, and has never acted on them. However, he also acknowledges that he has had more frequent and more intensive thoughts of suicide and he notes that it has not been usual for him to voice suicidal thoughts to others. The patient reports that his brother is a family practitioner in another state, and after talking to his brother his brother told him "it is time for you to go to the hospital. You are not well." -Within the context of the patient's mood alterations he reports difficulty with sleep induction and sleep maintenance. He notes that prior to admission he had been taking lorazepam at bedtime together with nortriptyline, and this had allowed him to sleep better. I commented that his chart suggest that he had slept fairly well last night, and he said, "well I try to keep my eyes closed, but I really do not think I slept very much. The nurses probably thought I was asleep." We starting nortriptyline in his case would be not advisable given his history of cardiac arrhythmias. Lorazepam also runs a risk in elderly patients and the current goal is to taper and possibly discontinue lorazepam completely. Also, lorazepam has a relatively short half-life and part of the patient's complaint is sleep maintenance issues. He uses a CPAP and says that normally he can sleep "fairly well" when he is at home. Trazodone not be the best choice given its potential for cardiac side effects.. I talked to him about the possibility of using zolpidem (Ambien) for sleep. I reviewed the material risks and anticipated benefits of Ambien with the patient, and he indicated understanding. I explained that this would probably be a short-term solution during his hospital stay. -The patient agreed today to retract his 72-hour notice and remain in the hospital voluntarily. 04/15 raised abilily to 5mg qam as of 04/16 dose, mindful of 2d6 interaction of bupropion that was just recently discontinued but can be a potential impact of abilify blood levels for a bit of time still. 04/16 maintained meds unchanged (2) Anxiety: 04/11 -resume SSRI as above, and continue home dose of lorazepam 0.5 3 times daily as needed. Ideally this would be tapered off given his multiple risk factors for negative outcome including age, polypharmacy, multiple medical problems, question of cognitive impairment/dementia (on memantine as an outpatient). 04/13 -taking lorazepam 0.5 mg 0-1 times daily here. Will reduce to once daily as needed, with recommendations to discontinue given risks Above. 04/14 -Patient reports that in the past selective serotonin reuptake inhibitors have exacerbated his irritable bowel syndrome symptoms, but he notes that so far Lexapro has had no side effects and he feels that he is tolerating it well. Because of my concern that the patient may actually have bipolar 1 disorder, mixed pattern, rather than simply a unipolar situational depression I feel the patient should also have a mood stabilizer on board. For that reason, we are beginning aripiprazole at 2.5 mg daily and we will titrate this as indicated. 04/16 maintained meds unchanged. provided education of that addition of abilfiy and stopping of some of his other medications might be alleivaitng his symptoms and that can likely get by with notable less ativan usage ot address his anxiety (3) Cognitive decline: 04/11-outpatient psychiatrist diagnosed cognitive disorder NOS and started memantine. Patient was referred for neuropsych testing but may have missed the appointment; if so, will need to be rescheduled at [facility]. -[facility] once patient has hearing aids and is able to participate appropriately. 04/12 - Patient participated in [facility] after hearing aid batteries were replaced. Pt scored a 25/30, demonstrating mild cognitive deficit. - Patient lost 1 point during alternating trail making for an error. 1 point lost in language assessment due to insertion of an additional syllable ("underneath"). 1 point lost in fluency as only 10 words were provided. 1 point lost in abstraction due to answer of "both have wheels" for "train-bicyc le" analogy. 1 point lost for delayed recall. 04/13 -reviewed neuropsychiatry evaluation from -07/2019. Cognitive functioning was intact and impairment noted by the patient was thought to be secondary to anxiety, depression, Ativan use, and psychosocial stressors. Repeat testing to be scheduled if continued decline noted. -Patient is now on memantine and will defer decisions about continuing or discontinuing this medication to Dr. Montalvo. 04/14 -Today, the patient demonstrated reasonable recent memory. He recalls the correct date that he entered the hospital, the circumstances that led to his hospitalization, and he is able to identify various staff members by name and role. He also was able to process abstract information, although his rapidly tangential thoughts and rapid speech can sometimes interfere with communicating. 04/16 cognitive functioning seems to be improving further as pt is becoming more clearheaded and less internally preoccupied and thought process normalizing and as he is using his hearing aids (4) Dehydration: 04/11-BUN chronically elevated (21-29), and was 25 on admission. Creatinine has ranged from 1.2-1.57 in the past year and a half, and was 1.46 on admission. Likely dehydrated on admission, recheck BMP tomorrow. 04/13 -repeat BMP on 04/12/2020 showed BUN 21 and creatinine 1.48. (5) Hearing deficit: 04/11 -patient extremely hard of hearing, has only one hearing aid here and the battery is . Nursing staff contacting family to bring in the other hearing aid and new batteries. 04/14 -Patient reports that with his hearing aids he is now hearing well, and there was no problem in communicating with him in the normal tone of voice and volume. (6) Atrial fibrillation: 04/11 -continue metoprolol, warfarin held on admission due to INR of 3.3, and this morning it is 3.5. Consult coagulation clinic for input regarding d osing/INR monitoring. -Contacted Dr. Reyez for input re: Warfarin and INR. 04/12 - Pt revealed today that he is on a different Warfarin regimen than was initially documented. He showed this provider a card with the following schedule: 5mg on Sun, Tu, Th and 2.5mg on Mon, Fri, Fri, Sat. - Pt states his dosing was adjusted prior to his colonoscopy - he was stop the medication from 03/31 - 04/04 and then take 5mg on 04/04 followed by 10mg on 04/05 and then resume his home dosing schedule - Resumed home medications today, as INR was within range at 2.8 - Will continue daily PT/INR per hospital protocol - Appreciate assistance from Dr. Reyez, who reported availability for further recommendations as needed 04/13 -Review of PCP records shows warfarin dose of 5 mg daily as of his last visit last month, but a card he has from the [facility] clinic shows a different dose schedule.. -INR today is 1.7. Continue with daily INRs, and if they do not stabilize within the therapeutic range, we will request consultation. 04/17 - INRs more stable after resuming home dose of Coumadin - INR on discharge was 2.4 (7) Hypertension: 04/11 -continue home doses of metoprolol and furosemide. (8) IBS (irritable bowel syndrome): 04/11 -continue home dose of nortriptyline 04/14 --nortriptyline has been discontinued. This medication would has potential cardiac side effects and the patient tells us today that without nortriptyline, he is not sleeping as well, but has not had irritable bowel syndrome symptoms and says that he is having normal, if slightly loose, bowel movements daily. 04/15 -simethicone added prn to help alleviate any potential GI discomfort (9) Vertigo: 04/11 -continue home dose of meclizine 04/14 -the patient reports that his vertigo is currently stable. 04/15 -continues to indicate vertigo is resolved Mental Health & Subst Abuse Tx Psychiatrist Name of Psychiatrist: Lauri - Dr. Claire Montalvo Psychiatrist's Date of Appointment with Psychiatrist: 05/17/20 Time of Appointment with Psychiatrist: 10:30 a.m. Psychiatric Appointment Comment: Video call - follow link in email Therapist Name of Therapist: Lauri Therapist's Therapy Appointment Comment: Will contact you to establish your intake (referral faxed) Post Discharge Appointments Primary Care Physician Name Of Family Doctor: Lauri Felder [facility] Date of Appointment with PCP: 04/24/20 Time of Appointment with PCP: 11:05 a.m. Provider Appointment Comment: Kenna Orozco Neurologist Name of Neurologist: Lauri Cardona Neurologist's Date of Appointment with Neurologist: 07/17/20 Time of Appointment with Neurologist: 9:05 a.m. Neurology Appointment Comment: Kenna Orozco Specialist Name of Specialist: La[facility] Phone Number for Specialist: [phone] Date of Appointment with Specialist: 07/10/20 Time of Appointment with Specialist: 1:15 p.m. Specialty Appointment Comment: Shalini Chairez Smoking Cessation Counseling Tobacco Cessation Medication Prescribed at Discharge: Not Applicable/Non-Smoker Other #1: Name of Aftercare Appointment: Lauri Cabrera Pulmonology Phone Number of Aftercare Appointment: [phone] Date of Aftercare Appointment: 08/01/20 Time of Aftercare Appointment: 9:15 a.m. Aftercare Appointment Comment: Shalini Chairez Contact Information Discharge Discharge Address: [address] [place] [address] Discharge Plan Discharge Items Patient Disposition: Home - Self-Care Reason For Visit: BIPOLAR DISORDER Discharge Diagnosis: - Bipolar disorder - Anxiety Condition on Discharge: Fair Activity: Resume your previous activity Non-emergency contact: Primary Care Provider, Industrial Truck Operator, Neurologist, Psychiatrist and Therapist Call non-emergency contact if: you have any medication questions and your symptoms worsen Follow-up/Referrals: Eamon Felder, DO [Primary Care Provider] - Diet: Regular Addtl Attending Provider Instructions: SPECIAL CARE INSTRUCTIONS: 1. Follow through with your scheduled aftercare appointments. If unable to keep an appointment, please call to reschedule. 2. Take your medication only as prescribed. Medication should not be changed or stopped without the approval of your doctor. In the event of worsening symptoms or concerns about side effects, contact your doctor immediately. 3. Utilize new healthy coping skills, anger management skills, and stress management skills learned during your hospitalization. Journal feelings and process them with a support person. Identify stressors or situations that may result in relapse, deterioration or inappropriate behaviors and develop a plan to deal with those issues. 4. If your coping skills are ineffective and you are in crisis, contact your outpatient providers for direction. If unable to reach your providers, please call the CAN HELP LINE AT or go to the closest Emergency Room. 5. Avoid alcohol and un-prescribed drugs. 6. You have been provided with the Mental Health Advance Directives Pamphlet for your review. AFTERCARE APPOINTMENTS: * Please call your insurance company prior to your scheduled appointment to confirm your aftercare providers are covered. Take your insurance information to your appointments. WHO TO CALL AND WHEN: Medical Emergencies: For questions or emergencies related to your hospital stay, please contact the Inpatient Behavioral Health Unit at [phone]. A industrial waste inspector is on-call 31/03 for the Behavioral Health Unit for emergencies At any time you feel your situation is an emergency, you may also call 911 immediately. Your Discharge Instructions noted above were prepared by provider Beena Jordan PA-C. Pending Studies at Discharge: No Stand-Alone Forms: My [facility], Smoking Cessation, Suicide Prevention Resources Medications and DC Order Prescriptions: New warfarin [Jantoven] 2.5 mg Tablet 2.5 mg PO MoWeFrSa@1600 1 Days Qty: 1 RF: 0 warfarin 5 mg Tablet 5 mg PO SuTuTh@1600 1 Days Qty: 1 RF: 0 aripiprazole [Abilify] 5 mg Tablet 5 mg PO QAM 30 Days Qty: 30 RF: 0 zolpidem 5 mg Tablet 5 mg PO HS PRN (Reason: insomnia) 3 Days Qty: 3 RF: 0 Continued allopurinol [Zyloprim] 100 mg Tablet 100 mg PO DAILY RF: 0 tamsulosin [Flomax] 0.4 mg Capsule 0.4 mg PO HS RF: 0 meclizine 25 mg Tablet 25 mg PO TID RF: 0 pantoprazole [Protonix] 40 mg Tablet,Delayed Release (Dr/Ec) 20 mg PO QAM RF: 0 furosemide 20 mg Tablet 20 mg PO DAILY PRN (Reason: LEG SWELLING) RF: 0 metoprolol succinate [Toprol XL] 25 mg Tablet Extended Release 24 Hr 25 mg PO QAM RF: 0 albuterol sulfate [ProAir HFA] 90 mcg/actuation Hfa Aerosol Inhaler 1 puff INHALATION Q4H PRN (Reason: SOB/WHEEZING) RF: 0 melatonin 5 mg Capsule 5 mg PO HS RF: 0 erythromycin with ethanol [Mckinley Pads] 2 % swab 1 applic TOPICAL DAILY RF: 0 escitalopram oxalate 20 mg tablet 20 mg PO DAILY RF: 0 memantine 10 mg tablet 10 mg PO BID RF: 0 fluticasone propionate aerosol 50 mcg intranasal DAILY RF: 0 hyoscyamine sulfate 0.125 mg PO Q4H PRN (Reason: Abdominal Pain) RF: 0 ivermectin 1 % topical DAILY PRN (Reason: Acne) RF: 0 vardenafil 20 mg PO DAILY MDD 20 mg PRN (Reason: Erectile Dysfunction) RF: 0 Discontinued lorazepam [Ativan] 0.5 mg Tablet 0.5 mg PO TID PRN (Reason: Anxiety) RF: 0 nortriptyline 10 mg Capsule 20 mg PO HS RF: 0 warfarin 5 mg Tablet 5 mg PO DAILY RF: 0 bupropion HCl [Wellbutrin XL] 300 mg Tablet Extended Release 24 Hr 300 mg PO DAILY RF: 0 bupropion HCl 150 mg tablet sustained-release 12 hr 150 mg PO DAILY RF: 0 doxycycline hyclate 50 mg capsule 50 mg PO DAILY RF: 0 Discharge Orders: Discharge Order (Routine); Ordered 04/17/20 Ordered By: Beena Jordan Admission Data Admit Date/Time: 04/10/20 18:03 Attending Provider: Rabia Caballero Admit Provider: Kelle Mendez Primary Care Provider: Eamon Felder Other Interventions: Discharge Summary Assessment (RN) Last Done: 04/17/20 11:51 PSY Interdisciplinary Discharge Planning Last Done: 04/17/20 12:17 DC Date/Time DO NOT enter until pt leaves facility: 04/17/20 13:40 Coding Level of Care Code 08327 D/C day mgmt > 30 min Diagnoses Depression with suicidal ideation F32.9; R45.851 Anxiety F41.9 Cognitive decline R41.89 Dehydration E86.0 Hearing deficit H91.90 Atrial fibrillation I48.91 Hypertension I10 IBS (irritable bowel syndrome) K58.9 Vertigo R42
[2020-04-17 11:53] VITALS: PULSE 50
== END 2020-04-17 13:40 | disposition home or self-care (01) | DRG 885 ==
LOC: ED 13:35 → 3S 18:03

== ENCOUNTER 2020-05-11 16:01 | Inpatient (IN) ==
--- NOTE | 2020-05-11 16:33 | Emergency Department Note ---
Impression & Plan Pulmonary edema, Dyspnea, paroxysmal nocturnal, Elevated troponin I level ED Provider Note NAME: PAVEL SEGURA AGE: 79 SEX: M : 1940 ARRIVES VIA: Walk-In INFORMANT: Patient, ED PROVIDER(S): Shamir Haile DO CHIEF COMPLAINT: Shortness of breath HPI: The patient is a 79-year-old male who presented to the emergency department for shortness of breath. The patient states that he has been having difficulty breathing that he notices especially at night. The patient describes paroxysmal nocturnal dyspnea but states that when he sits upright he still has severe anxiety and shortness of breath. The patient has fear that at night he is going to because he is going to stop breathing. He states he has had a nonpro ductive cough. He denies having any fever. He denies having any chest pain. He denies having any lower extremity swelling new than usual but does have some baseline swelling in his legs. He denies having any recent traveling but was admitted recently to our facility for a mental health evaluation. He did have some of his medications changed at that time he is unsure if that is the cause of his symptoms today. He denies having any abdominal pain. The patient did not see his family doctor for the symptoms but has an appointment next week. ROS: See above HPI for pertinent positives & negatives. A total of 10 systems reviewed and were otherwise negative. PAST MEDICAL HISTORY: See Below PAST SURGICAL HISTORY: See Below FAMILY HISTORY: See Below SOCIAL HISTORY: See Below HOME MEDICATIONS: See Below ALLERGIES: See Below VITALS: See Below PHYSICAL EXAMINATION: GENERAL: Patient is awake alert in no acute distress patient is resting comfortably and showing no signs of anxiety EYES: The conjunctivae are clear. The pupils are round and reactive. EARS, NOSE, MOUTH AND THROAT: The nose is without any evidence of any deformity. Mucous membranes are moist. Tongue is midline. NECK: The neck is nontender and supple. RESPIRATORY: Diminished breath sounds are noted at the left base. There was slight rales at the left base. CARDIOVASCULAR: Irregular rhythm was noted to auscultation. There was no definite murmur. GASTROINTESTINAL: The abdomen is soft. Abdomen is nontender. MUSCULOSKELETAL/EXTREMITIES: There is no evidence of gross deformity full range of motion is noted in the hips and shoulders. SKIN: There is no obvious evidence of any rash. Pedal edema was noted bilaterally. NEUROLOGIC: Patient is awake alert and oriented x3. MEDICAL DECISION MAKING: The patient is a 79-year-old male who presented to the emergency department for an evaluation of paroxysmal dyspnea. The patient has a cardiac history however he states he is never had a history of CHF or pulmonary edema in the past. The patient presented for an evaluation of shortness of breath. He was found to have an elevated troponin. The patient has a history of atrial fibrillation his INR was subtherapeutic. The patient was found to have signs of volume overload on his lungs. He states he is never had a history of this. Given the fact that he has an elevated troponin in the emergency department I felt he may require further inpatient work-up. For this reason I discussed his case with the on- call [facility]. They have agreed to evaluate the patient in the emergency department for further management and disposition. Triage Nursing notes reviewed. Prior medical records reviewed Vital Signs: reviewed and remarkable for no significant abnormalities Differential diagnosis: Reactive airway disease, pneumonia, pneumothorax, COPD, CHF, infections, cardiac ischemia, pulmonary embolism, musculoskeletal, gastrointestinal, as well as other pathologies. ER treatment provided: See below Diagnostics interpreted by me: ECG: EKG was obtained in the emergency department. My interpretation is atrial fibrillation at 82 bpm. There PVCs were noted. A left bundle branch block pattern was favored. Low lateral ST depressions were noted. This was compared to a tracing from April 102019. No significant changes were noted. Cardiac Monitoring: An order was placed for continuous cardiac monitoring. The monitor shows a rate of 70 bpm with atrial fibrillation rhythm. Laboratory studies: As stated above and show below. Imaging studies: See below Consultation(s): [id number]: I discussed this case with [facility] group. They will evaluate the patient in the emergency department for further management and disposition. ED COURSE: Procedures: none PDMP:reviewed and no issues Critical Care: None Past Med/Surg History Medical History (Updated 05/11/20 @ 19:52 by Shamir Haile DO) Acne Anxiety Asthma STABLE Atrial fibrillation ON WARFARIN BPH (benign prostatic hyperplasia) Cognitive decline Dehydration Depression Diverticular disease DIVERTICULITIS S/P PERFORATION/COLON RESECTION (2005) GERD (gastroesophageal reflux disease) Gout Hearing deficit BILATERAL AIDES Hyperlipidemia Hypertension IBS (irritable bowel syndrome) LBBB (left bundle branch block) CHRONIC Obesity Osteoarthritis Sciatica Sleep apnea CPAP Vertigo Surgical History History of appendectomy History of bowel resection DIVERTICULITIS S/P PERFORATION/COLON RESECTION (2005) History of colonoscopy History of colostomy SUBSEQUENT REVERSAL History of colostomy reversal History of endoscopic sinus surgery History of esophagogastroduodenoscopy (EGD) History of tonsillectomy Family History Mother Family hx of colon cancer Family history of diabetes mellitus Social History (Updated 05/11/20 @ 18:46 by [place] Pa PA-C) Smoking Status: Former smoker Years Smoked: 20; Cigarettes Per Day: 15; Second Hand Exposure: No; Hx Alcohol Use: No Hx Substance Use: No Preferred Language: Mongolian Communication Ability: Effective Ship Loader Required: No Beliefs That Will Affect Care: None Current Living Situation: Significant Other Feels Safe at Home: Yes Allergies Allergies Allergy/AdvReac Type Severity Reaction Status Date / Time house dust Allergy Congested Verified 05/11/20 17:45 Home Meds Home Medications Medication Instructions Recorded Confirmed albuterol sulfate [ProAir HFA] 1 puff INHALATION Q4H PRN 11/10/18 05/11/20 allopurinol [Zyloprim] 100 mg PO QAM 11/10/18 05/11/20 melatonin 5 mg PO 11/10/18 05/11/20 metoprolol succinate [Toprol XL] 25 mg PO [facility] 11/10/18 05/11/20 pantoprazole [Protonix] 20 mg PO QA 11/10/18 05/11/20 tamsulosin [Flomax] 0.4 mg PO 11/10/18 05/11/20 erythromycin with ethanol [Mckinley 1 applic TOPICAL DAILY PRN 04/10/20 05/11/20 Pads] escitalopram oxalate 5 mg PO QAM 04/10/20 05/11/20 ivermectin 1 % TOPICAL DAILY PRN 04/10/20 05/11/20 memantine 10 mg PO BID 04/10/20 05/11/20 vardenafil 20 mg PO DAILY PRN MDD 20 mg 04/10/20 05/11/20 fluticasone propionate [Flonase] 0 spray INTRANASAL BID 05/11/20 05/11/20 meclizine 25 mg PO UD PRN 05/11/20 05/11/20 warfarin 2.5 mg PO MOWEFRSA 05/11/20 05/11/20 warfarin 5 mg PO SUTUTH 05/11/20 05/11/20 Previous Rx's Medication Instructions Recorded aripiprazole [Abilify] 5 mg PO QAM 30 Days #30 tab 04/17/20 methylprednisolone 4 mg tablets in 4 mg PO UD #1 packet 05/11/20 a dose pack Results & Data (ED) Vital Signs Vital Signs - 24 hr 05/11/20 16:04 05/11/20 16:18 05/11/20 16:43 Temperature 36.5 C Temperature Source Oral Pulse Rate 85 80 Pulse Rate from SpO2 Sensor 79 Respiratory Rate 20 22 Respiratory Effort / Characteristics Spontaneous Respiratory Pattern Regular Blood Pressure 127/77 137/93 Blood Pressure Mean 93 103 Pulse Oximetry 97 97 Oxygen Delivery Method Room Air Room Air Room Air Sepsis Recent Fever Within 48 Hours No Sepsis New/Unexplained Change in Mental Status No Sepsis Action Taken by Nursing No Action Required 05/11/20 17:02 05/11/20 17:30 05/11/20 18:00 Temperature Temperature Source Pulse Rate 84 77 74 Pulse Rate from SpO2 Sensor 82 77 74 Respiratory Rate 25 H 26 H 21 Respiratory Effort / Characteristics Respiratory Pattern Blood Pressure 119/80 132/86 119/73 Blood Pressure Mean 83 108 75 Pulse Oximetry 94 95 96 Oxygen Delivery Method Room Air Room Air Room Air Sepsis Recent Fever Within 48 Hours Sepsis New/Unexplained Change in Mental Status Sepsis Action Taken by Prison Medications Current Medication List: was personally reviewed by me Laboratory Data Attestation: I reviewed the patient's lab results. Result diagrams: 05/11/20 16:38 05/11/20 16:38 Lab Results 05/11/20 05/11/20 05/11/20 Range/Units 16:38 16:38 16:38 WBC 7.46 (4.8-10.8) K/uL RBC 4.90 (4.7-6.1) M/uL Hgb 15.1 (14.0-18.0) g/dL Hct 45.3 (42-52) % MCV 92.4 (80-100) fL MCH 30.8 (25-34) pg MCHC 33.3 (32-36) g/dL RDW Std Deviation 52.8 H (36.4-46.3) fL RDW Coeff of Henry 15.5 H (11.5-14.5) % Plt Count 194 (130-400) K/uL MPV 9.6 (7.4-10.4) fL Immature Gran % (Auto) 0.1 % Neut % (Auto) 70.1 % Lymph % (Auto) 16.4 % [place] % (Auto) 10.1 % Eos % (Auto) 2.9 % Baso % (Auto) 0.4 % Neut # (Auto) 5.23 (1.4-6.5) K/uL Lymph # (Auto) 1.22 (1.2-3.4) K/uL [place] # (Auto) 0.75 H (0.11-0.59) K/uL Eos # (Auto) 0.22 (0-0.5) K/uL Baso # (Auto) 0.03 (0-0.2) K/uL Immature Gran # (Auto) 0.01 (0.00-0.02) K/uL PT 16.6 H (9.0-12.0) Seconds INR 1.6 H (0.9-1.1) APTT 32.4 H (21.0-31.0) Seconds PTT Ratio 1.2 VBG pH (7.36-7.41) VBG pCO2 (38-50) mmHg VBG pO2 mmHg VBG HCO3 mmol/L VBG O2 Saturation % VBG Base Excess mEq/L Barometric Pressure mm/Hg Sodium 140 (136-145) mmol/L Potassium 4.1 (3.5-5.1) mmol/L Chloride 106 (98-107) mmol/L Carbon Dioxide 27 (21-32) mmol/L Anion Gap 7.0 (3-11) BUN 26 H (7-18) mg/dl Creatinine 1.43 H (0.6-1.4) mg/dl Est Cr Clr Drug Dosing Not Reportable Est GFR ( Amer) 54.4 Est GFR (Non-Af Amer) 46.9 BUN/Creatinine Ratio 17.8 (10-20) Glucose 101 H (70-99) mg/dl Calcium 8.7 (8.5-10.1) mg/dl Magnesium 1.7 L (1.8-2.4) mg/dl Total Bilirubin 0.6 (0.2-1) mg/dl AST 26 (15-37) U/L ALT 24 (12-78) U/L Alkaline Phosphatase 116 (45-117) U/L Troponin I 0.081 H* (0-0.045) ng/ml NT-Pro-B Natriuret Pep 1607 (0-1800) pg/ml Total Protein 7.0 (6.4-8.2) gm/dl Albumin 3.1 L (3.4-5.0) gm/dl Globulin 3.9 (2.5-4.0) gm/dl Albumin/Globulin Ratio 0.8 L (0.9-2) 05/11/20 Range/Units 16:38 WBC (4.8-10.8) K/uL RBC (4.7-6.1) M/uL Hgb (14.0-18.0) g/dL Hct (42-52) % MCV (80-100) fL MCH (25-34) pg MCHC (32-36) g/dL RDW Std Deviation (36.4-46.3) fL RDW Coeff of Henry (11.5-14.5) % Plt Count (130-400) K/uL MPV (7.4-10.4) fL Immature Gran % (Auto) % Neut % (Auto) % Lymph % (Auto) % [place] % (Auto) % Eos % (Auto) % Baso % (Auto) % Neut # (Auto) (1.4-6.5) K/uL Lymph # (Auto) (1.2-3.4) K/uL [place] # (Auto) (0.11-0.59) K/uL Eos # (Auto) (0-0.5) K/uL Baso # (Auto) (0-0.2) K/uL Immature Gran # (Auto) (0.00-0.02) K/uL PT (9.0-12.0) Seconds INR (0.9-1.1) APTT (21.0-31.0) Seconds PTT Ratio VBG pH 7.37 (7.36-7.41) VBG pCO2 50 (38-50) mmHg VBG pO2 25 mmHg VBG HCO3 28 mmol/L VBG O2 Saturation < 60.0 % VBG Base Excess 2.1 mEq/L Barometric Pressure 726.3 mm/Hg Sodium (136-145) mmol/L Potassium (3.5-5.1) mmol/L Chloride (98-107) mmol/L Carbon Dioxide (21-32) mmol/L Anion Gap (3-11) BUN (7-18) mg/dl Creatinine (0.6-1.4) mg/dl Est Cr Clr Drug Dosing Est GFR ( Amer) Est GFR (Non-Af Amer) BUN/Creatinine Ratio (10-20) Glucose (70-99) mg/dl Calcium (8.5-10.1) mg/dl Magnesium (1.8-2.4) mg/dl Total Bilirubin (0.2-1) mg/dl AST (15-37) U/L ALT (12-78) U/L Alkaline Phosphatase (45-117) U/L Troponin I (0-0.045) ng/ml NT-Pro-B Natriuret Pep (0-1800) pg/ml Total Protein (6.4-8.2) gm/dl Albumin (3.4-5.0) gm/dl Globulin (2.5-4.0) gm/dl Albumin/Globulin Ratio (0.9-2) Administered Medications Heparin Sodium/Dextrose (Heparin Sodium/Dextrose) 25,000 units in 500 mls @ 20 mls/hr IV .Q24H ALEKSANDRA; Protocol Stop: 06/10/20 18:29 Last Admin: 05/11/20 19:09 Dose: 1,000 units/hr, 20 mls/hr Documented by: [id number] Cosigned by: [id number] Discontinued Medications Furosemide (Furosemide 40 Mg/4 Ml Vial) 40 mg IV NOW STA Stop: 05/11/20 17:32 Last Admin: 05/11/20 17:37 Dose: 40 mg Documented by: [id number] Heparin Sodium/Dextrose (Heparin Iv Low Dose *No* Bolus) 1 ea IV ONE ONE; Protocol Stop: 05/11/20 18:25 Last Admin: 05/11/20 19:20 Dose: Not Given Documented by: [id number] Imaging Data Radiologist's Impression: XR chest 1V portable CLINICAL HISTORY: Dyspnea COMPARISON STUDY: Chest radiograph November 13, 2018. FINDINGS: Lung volumes are diminished. This is unchanged. No pneumothorax is identified. There is a possible small left pleural effusion. Interstitial thickening is noted. There are mild bibasilar opacities. Mild to moderate cardiomegaly is unchanged. IMPRESSION: 1. Cardiomegaly with pulmonary vascular congestion with possible mild pulmonary edema. 2. Low lung volumes with bibasilar opacities which favor atelectasis although an infectious process could appear similar. Radiographic follow up is recommended. 3. Possible small left pleural effusion. ACT 112: Negative or not required by law. Electronically signed by: Judah Dodd M.D. 05/11/2020 4:39 PM Dictated: 05/11/20 1637 Transcribed: 05/11/20 1637 Blood Pressure Blood Pressure Findings: Normal blood pressure Discharge Plan Visit Data Chief Complaint: Shortness of Breath/Dyspnea Stated Complaint: sob ED Provider: Shamir Haile Discharge Problem: Pulmonary edema, Dyspnea, paroxysmal nocturnal, Elevated troponin I level Patient Disposition: Still a Patient Condition: Good Discharge Instructions Interventions: ED Discharge Assessment Last Done: 05/11/20 19:25
--- NOTE | 2020-05-11 16:40 | XRay Report ---
XR chest 1V portable CLINICAL HISTORY: Dyspnea COMPARISON STUDY: Chest radiograph November 13, 2018. FINDINGS: Lung volumes are diminished. This is unchanged. No pneumothorax is identified. There is a p ossible small left pleural effusion. Interstitial thickening is noted. There are mild bibasilar opaci ties. Mild to moderate cardiomegaly is unchanged. IMPRESSION: 1. Cardiomegaly with pulmonary vascular congestion with possible mild pulmonary edema. 2. Low lung volumes with bibasilar opacities which favor atelectasis although an infectious process c ould appear similar. Radiographic follow up is recommended. 3. Possible small left pleural effusion. ACT 112: Negative or not required by law. Electronically signed by: Judah Dodd M.D. 05/11/2020 4:39 PM
[2020-05-11 16:49] LABS: Basophils # (auto) 0.03 K/uL (0-0.2); Basophils % (auto) 0.4 %; Eosinophils # (auto) 0.22 K/uL (0-0.5); Eosinophils % (auto) 2.9 %; Hematocrit (blood only) 45.3 % (42-52); Hemoglobin 15.1 g/dL (14.0-18.0); Immature Granulocytes # (auto) 0.01 K/uL (0.00-0.02); Immature Granulocytes % (auto) 0.1 %; Lymphocytes # (auto) 1.22 K/uL (1.2-3.4); Lymphocytes % (auto) 16.4 %; Mean Corpuscular Hemoglobin 30.8 pg (25-34); Mean Corpuscular Hgb Conc 33.3 g/dL (32-36); Mean Corpuscular Volume 92.4 fL (80-100); Mean Platelet Volume 9.6 fL (7.4-10.4); Monocytes # (auto) 0.75 K/uL (0.11-0.59); Monocytes % (auto) 10.1 %; Neutrophils # (auto) 5.23 K/uL (1.4-6.5); Neutrophils % (auto) 70.1 %; Platelet Count 194 K/uL (130-400); RDW Coefficient of Variation 15.5 % (11.5-14.5); RDW Standard Deviation 52.8 fL (36.4-46.3); White Blood Count 7.46 K/uL (4.8-10.8)
[2020-05-11 17:02] LABS: Base Excess VBG 2.1 mEq/L; HCO3 VBG 28 mmol/L; INR 1.6 (0.9-1.1); Oxygen Saturation VBG < 60.0 %; PCO2 VBG 50 mmHg (38-50); PO2 VBG 25 mmHg; Partial Thromboplastin Ratio 1.2; Partial Thromboplastin Time 32.4 Seconds (21.0-31.0); Prothrombin Time 16.6 Seconds (9.0-12.0); pH VBG 7.37 (7.36-7.41)
[2020-05-11 17:12] LABS: Alanine Aminotransferase 24 U/L (12-78); Albumin Level 3.1 gm/dl (3.4-5.0); Aspartate Aminotransferase 26 U/L (15-37); BUN Creatinine Ratio 17.8 (10-20); Blood Urea Nitrogen 26 mg/dl (7-18); Calcium 8.7 mg/dl (8.5-10.1); Carbon Dioxide 27 mmol/L (21-32); Chloride 106 mmol/L (98-107); Est GFR (African American) 54.4; Est GFR (Non-African American) 46.9; Glucose 101 mg/dl (70-99); Magnesium 1.7 mg/dl (1.8-2.4); Potassium 4.1 mmol/L (3.5-5.1); Sodium 140 mmol/L (136-145)
[2020-05-11] MEDS ORDERED: FUROSEMIDE 40 MG/4 ML VIAL IV STA (17:31)
[2020-05-11 17:33] LABS: Albumin Globulin Ratio 0.8 (0.9-2); Alkaline Phosphatase 116 U/L (45-117); Bilirubin,Total 0.6 mg/dl (0.2-1); Globulin 3.9 gm/dl (2.5-4.0); NT Pro B Type Natriuretic Pept 1607 pg/ml (0-1800); Troponin I 0.081 ng/ml (0-0.045)
[2020-05-11] MEDS ORDERED: Heparin IV Low Dose *NO* Bolus IV ONE (18:24)
--- NOTE | 2020-05-11 18:45 | History & Physical Report ---
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 Patient presented to ED with complaints and exam findings consistent with acute CHF. He also complains of off and on intermittent chest discomfort associated with paroxysmal nocturnal dyspnea. Currently he is not requiring any oxygen and he denies any active chest pain. He does have history of MYRON and was noncompliant with CPAP for the past 3 to 4 days, which could also be contributing to symptoms. Admit to med telemetry Lasix IV 40 mg BID 17 Obtain echocardiogram -last echo 01/2018 revealed EF 50 to 54%, left atrial enlargement, grade 1 diastolic dysfunction, septal wall motion abnormality consistent with intraventricular conduction delay, base and mid posterior wall hypokinesis, basal inferior wall hypokinesis Cycle troponins Consult cardiology Start on low-dose no bolus IV heparin drip in setting of subtherapeutic INR and chronic atrial fibrillation, this will also assist in setting of elevated troponin although I feel is likely demand ischemia in relation to decompensation of CHF Patient did take 2.5 mg of warfarin today, will give an additional 2.5 mg this evening Repeat INR in a.m. -dose accordingly daily weights, strict I and O, HH Low NA diet (3) Atrial fibrillation: Rate controlled with metoprolol Subtherapeutic INR, initiate IV heparin until INR between > 2 Give additional 2.5 mg of warfarin this evening (home regimen is 5 mg Friday, Friday, and 2.5 mg all other days; however, patient only took 2.5 mg today) (4) Sleep apnea: MYRON @ HS pt noncompliant last few nights (5) Depression: pt with recent psychiatric inpt stay with medication adjustments He tells me his wellbutrin was stopped along with lorazepam He was placed on escitalopram and abilify - states he has been weaning escitalopram down to 5mg on own consult psych for eval of medication regimen also pt complaining of significant insomnia since med changes (6) DVT prophylaxis: warfarin, IV heparin until INR > 2.0 PT/INR daily Follow up: PCP Dr. Felder upon discharge Disposition: admit to [facility] tele Pt was seen and examined in collaboration with Dr. Casillas, please see addendum History of Present Illness Chief Complaint: Shortness of breath off and on x2 weeks. 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 Of significance in early April patient did have a recent inpatient psych admission. He states he felt well approximately 3 to 4 days after that admission; however, he then started developing intermittent shortness of breath. Symptoms have worsened over the past 3 to 4 days. He complains of waking up in the middle of the night gasping for air and feeling short of breath with associated chest pressure. He is unsure how long symptoms last but feel likely not more than an hour. Does not take anything to help alleviate symptoms. Has never experienced in past. He does elicit occasional increased to lower extremity edema. He does not monitor his weights. He denies any current chest pressure, but states last felt last evening. He describes it as a pressure, nonradiating, approximately 3/10. Of significance he does have MYRON, but has not been wearing his CPAP for the past 3-4 nights. He previously had been on Lasix as needed, but most recently has not been taking. He has been compliant with his warfarin and states he took 2.5 mg today. Otherwise he is mostly compliant with it. He feels symptoms started after all medication núñez es he had during his inpatient psych. He admits to not sleeping well and being very drowsy during the day. In ED patient remained hemodynamically stable and saturating well on room air. Lab abnormalities notable for BUN 26, creatinine 1.43, mag 1.7, troponin 0.081, proBNP 1607. INR subtherapeutic at 1.6. Chest x-ray: cardiomegaly and pulmonary vascular congestion with possible mild pulmonary edema, low lung volumes with basilar opacities favor atelectasis, possible small left pleural effusion. He received 40 mg IV Lasix when in ED and approximately 20 minutes later had 700 mls of urine output. He is feeling better than arrival. Allergies Allergy/AdvReac Type Severity Reaction Status Date / Time house dust Allergy Congested Verified 05/11/20 17:45 Home Medications Home Medications Medication Instructions Recorded Confirmed Type albuterol sulfate [ProAir HFA] 1 puff INHALATION Q4H PRN 11/10/18 05/11/20 History allopurinol [Zyloprim] 100 mg PO QAM 11/10/18 05/11/20 History melatonin 5 mg PO HS 11/10/18 05/11/20 History metoprolol succinate [Toprol XL] 25 mg PO QAM 11/10/18 05/11/20 History pantoprazole [Protonix] 20 mg PO QAM 11/10/18 05/11/20 History tamsulosin [Flomax] 0.4 mg PO HS 11/10/18 05/11/20 History erythromycin with ethanol [Mckinley 1 applic TOPICAL DAILY PRN 04/10/20 05/11/20 History Pads] escitalopram oxalate 5 mg PO QAM 04/10/20 05/11/20 History ivermectin 1 % TOPICAL DAILY PRN 04/10/20 05/11/20 History memantine 10 mg PO BID 04/10/20 05/11/20 History vardenafil 20 mg PO DAILY PRN MDD 20 mg 04/10/20 05/11/20 History aripiprazole [Abilify] 5 mg PO QAM 30 Days #30 tab 04/17/20 05/11/20 Rx fluticasone propionate [Flonase] 0 spray INTRANASAL BID 05/11/20 05/11/20 History meclizine 25 mg PO UD PRN 05/11/20 05/11/20 History methylprednisolone 4 mg tablets in 4 mg PO UD #1 packet 05/11/20 05/11/20 Rx a dose pack warfarin 2.5 mg PO MOWEFRSA 05/11/20 05/11/20 History warfarin 5 mg PO SUTUTH 05/11/20 05/11/20 History Past Med/Surg History Medical History (Updated 05/11/20 @ 18:52 by [place] Pa PA-C) Acne Anxiety Asthma STABLE Atrial fibrillation ON WARFARIN BPH (benign prostatic hyperplasia) Cognitive decline Dehydration Depression Diverticular disease DIVERTICULITIS S/P PERFORATION/COLON RESECTION (2005) GERD (gastroesophageal reflux disease) Gout Hearing deficit BILATERAL AIDES Hyperlipidemia Hypertension IBS (irritable bowel syndrome) LBBB (left bundle branch block) CHRONIC Obesity Osteoarthritis Sciatica Sleep apnea CPAP Vertigo Surgical History History of appendectomy History of bowel resection DIVERTICULITIS S/P PERFORATION/COLON RESECTION (2005) History of colonoscopy History of colostomy SUBSEQUENT REVERSAL History of colostomy reversal History of endoscopic sinus surgery History of esophagogastroduodenoscopy (EGD) History of tonsillectomy Family History Mother Family hx of colon cancer Family history of diabetes mellitus Social History (Updated 05/11/20 @ 18:46 by Argentina Pa PA-C) Smoking Status: Former smoker Years Smoked: 20; Cigarettes Per Day: 15; Second Hand Exposure: No; Hx Alcohol Use: No Hx Substance Use: No Preferred Language: Japanese Communication Ability: Effective Gas Meter Installer Required: No Beliefs That Will Affect Care: None Current Living Situation: Significant Other Feels Safe at Home: Yes Review of Systems Review of Systems: All systems reviewed & are unremarkable except as noted in HPI & below Physical Exam Physical Exam: Constitutional: WD/WN, vitals as above, NAD, sitting up in bed & at bedside, pleasant, conversing easily Head: Normocephalic, Atraumatic Eyes: PERRL, conjunctivae normal, anicteric sclerae ENMT: external ear and nose normal, oropharynx normal Neck: trachea midline, no thyromegaly normal visual inspection Respiratory: normal respiratory effort, lungs clear to auscultation, no wheeze, rales, rhonchi. Normal insp/exp effort, no accessory muscle use Cardiovascular: IRR/IRR, no murmur, trace b/l pre tibial edema Vessels: no JVD or carotid bruit Chest: normal inspection of chest Abdomen: protuberant abd, normal bowel sounds, soft, nontender, no hepatosplenomegaly Musculoskeletal: no cyanosis or clubbing, extremities motor strength 5/5 Skin: no rashes, warm and dry normal turgor Neurologic: PERRL, EOMI, accommodation nl, no face palsy, no dysarthria CN's II-XI intact bilaterally and moves all extremities Psychiatric: A+Ox3, euthymic affect Lymphatic: no cervical or axillary lymphadenopathy : clear urine in urinal at bedside 700mls Results & Data Results & Data ([facility]) Vital Signs (Past 12 Hours) Vital Signs Temp Pulse Resp BP Pulse Ox 05/11/20 16:04 36.5 C 85 20 127/77 97 Laboratory Results Short CBC 05/11/20 05/11/20 Range/Units 16:38 16:38 WBC 7.46 (4.8-10.8) K/uL Hgb 15.1 (14.0-18.0) g/dL Hct 45.3 (42-52) % Plt Count 194 (130-400) K/uL Troponin I 0.081 H* (0-0.045) ng/ml NT-Pro-B Natriuret Pep 1607 (0-1800) pg/ml BMP 05/11/20 16:38 Sodium 140 Potassium 4.1 Chloride 106 Carbon Dioxide 27 BUN 26 H Creatinine 1.43 H Glucose 101 H Calcium 8.7 Cardiac Enzymes 05/11/20 Range/Units 16:38 Troponin I 0.081 H* (0-0.045) ng/ml Liver Function 05/11/20 Range/Units 16:38 Total Bilirubin 0.6 (0.2-1) mg/dl AST 26 (15-37) U/L ALT 24 (12-78) U/L Alkaline Phosphatase 116 (45-117) U/L Albumin 3.1 L (3.4-5.0) gm/dl Diagnostic Findings CXR: IMPRESSION: 1. Cardiomegaly with pulmonary vascular congestion with possible mild pulmonary edema. 2. Low lung volumes with bibasilar opacities which favor atelectasis although an infectious process could appear similar. Radiographic follow up is recommended. 3. Possible small left pleural effusion. Medications Administered Discontinued Medications Furosemide (Furosemide 40 Mg/4 Ml Vial) 40 mg IV NOW STA Stop: 05/11/20 17:32 Last Admin: 05/11/20 17:37 Dose: 40 mg Documented by: [id number] ECG Rate (beats per minute): 82 Rhythm: atrial fibrillation Findings: + PVC Comparison ECG Date: from (04/2020) Change: no significant change Code Status & VTE Plan Code Status Full Code VTE Prophylaxis Plan VTE Prophylaxis will be ordered: Yes Supervising Physician Co-Signing Physician Notes I, Dr. Jamal Casillas, have seen and assessed the patient with physician reference library assistant and agree with the assessment and plan as above and would like to comment that on exam HEENT; EOMI Heart: regular rate, atrial fibrillation by EKG Lungs: on room air, no wheezing Abdomen: soft, nontender, positive bowel sounds Extremities: mild bilateral edema Assessment and Plan -that while we are treating patient for acute congestive heart failure with IV Lasix based on Chest X ray impressions and elevated BNP, patient generally doing ok on room room air. His main complaints are interrupted sleep at night despite him using CPAP at home and feeling some chest discomfort which goes away after minutes. patient associates the changes with his sleep because of recent changes to behavioral health medications from last hospital admission. Will ask psychiatry to evaluate patient. monitor on telemetry overnight and continue CPAP with sleep. because patient has mildly subtherapeutic INR with minimally elevated tropnins, will start heparin drip IV for now and the goal INR is 2 to 3. consider follow up echocardiogram on this hospital presentation. further evaluation with cardiology consult. My hospitalist colleague will be taking over the patient care starting on 05/12/2020
[2020-05-11] MEDS: HEPARIN SODIUM/DEXTROSE 25,000 UNITS/500 ML BAG IV SCH (19:09)
[2020-05-11] MEDS ORDERED: MAGNESIUM HYDROXIDE SUSP 30 ML UDC PO PRN (20:00)
[2020-05-11] MEDS ORDERED: ALUMINUM/MAGNESIUM SUSP 30 ML UDC PO PRN (20:00)
[2020-05-11] MEDS ORDERED: ONDANSETRON INJ 2 MG/ML 2 ML VIAL IV PRN (20:00)
[2020-05-11] MEDS ORDERED: POLYETHYLENE (MIRALAX) 17 GM PACK PO PRN (20:00)
[2020-05-11] MEDS ORDERED: ACETAMINOPHEN 325 MG TAB PO PRN (20:00)
[2020-05-11] MEDS ORDERED: ALBUTEROL HFA 8 GM INHALER INH PRN (20:03)
[2020-05-11] MEDS ORDERED: WARFARIN SOD 2.5 MG TAB PO ONE (20:30)
[2020-05-11] MEDS: MAGNESIUM SULFATE / D5W 1 GM/100 ML BAG IV SCH ×2 (21:22→23:13)
[2020-05-11] MEDS: FLUTICASONE PROPIONATE NA SPR 16 GM BTL SCH (21:25)
[2020-05-11] MEDS: TAMSULOSIN HCL 0.4 MG CAP PO SCH (21:25)
[2020-05-11] MEDS: MEMANTINE HCL 10 MG TAB PO SCH (21:26)
[2020-05-11] MEDS: MELATONIN 3 MG TAB PO SCH (21:26)
[2020-05-12 01:18] LABS: Partial Thromboplastin Ratio 1.5; Partial Thromboplastin Time 41.3 Seconds (21.0-31.0)
[2020-05-12] MEDS ORDERED: HEPARIN IV BOLUS 4,000 UNITS in SYRINGE 0 ML IV ONE (02:00)
[2020-05-12 04:18] LABS: Hematocrit (blood only) 48.1 % (42-52); Hemoglobin 16.3 g/dL (14.0-18.0); Mean Corpuscular Hemoglobin 30.5 pg (25-34); Mean Corpuscular Hgb Conc 33.9 g/dL (32-36); Mean Corpuscular Volume 90.1 fL (80-100); Mean Platelet Volume 10.1 fL (7.4-10.4); Platelet Count 207 K/uL (130-400); RDW Coefficient of Variation 15.3 % (11.5-14.5); RDW Standard Deviation 50.5 fL (36.4-46.3); Red Blood Count 5.34 M/uL (4.7-6.1); White Blood Count 8.76 K/uL (4.8-10.8)
[2020-05-12 04:38] LABS: BUN Creatinine Ratio 21.7 (10-20); Calcium 9.3 mg/dl (8.5-10.1); Est GFR (African American) 57.3; Est GFR (Non-African American) 49.4; Magnesium 2.4 mg/dl (1.8-2.4); Potassium 4.1 mmol/L (3.5-5.1)
[2020-05-12 04:44] LABS: Troponin I 0.067 ng/ml (0-0.045)
[2020-05-12 08:37] LABS: Partial Thromboplastin Time 54.6 Seconds (21.0-31.0)
[2020-05-12] MEDS ORDERED: ESCITALOPRAM OXALATE 10 MG TAB PO SCH (09:00)
[2020-05-12] MEDS ORDERED: FUROSEMIDE 40 MG/4 ML VIAL IV SCH (09:00)
[2020-05-12] MEDS: MEMANTINE HCL 10 MG TAB PO SCH ×2 (09:20→20:17)
[2020-05-12] MEDS: FLUTICASONE PROPIONATE NA SPR 16 GM BTL SCH ×2 (09:20→20:17)
[2020-05-12] MEDS: ARIPiprazole 5 MG TAB PO SCH ×3 (09:20→14:34)
[2020-05-12] MEDS: PANTOprazole 40 MG TAB PO SCH (09:20)
[2020-05-12] MEDS: FUROSEMIDE 40 MG in SYRINGE 0 ML IV SCH ×2 (09:20→16:56)
[2020-05-12] MEDS: METOPROLOL SUCC 25MG EXT REL TAB PO SCH (09:20)
[2020-05-12] MEDS: allopurinoL 100 MG TAB PO SCH (09:21)
--- NOTE | 2020-05-12 10:17 | Cardiology Consultation ---
Date of Consultation May 12, 2020 Assessment & Plan (1) Acute CHF: (2) Elevated troponin I level: (3) LBBB (left bundle branch block): (4) Atrial fibrillation: Patient with acute decompensation of systolic heart failure. Echocardiogram performed today and reviewed independently revealed mild left ventricular systolic dysfunction with abnormal septal motion consistent with left bundle branch block, and mild diffuse left ventricular hypokinesis otherwise, qualitative LVEF 40 to 45%, down from 50 to 54% in 2018 (as measured by both echo and nuclear gated SPECT at that time). Minimally elevated, flat, troponin I elevation, consistent with CHF, volume overload, although patient certainly has underlying risk factors for ischemic heart disease. Recommend ongoing treatment furosemide, 40 milligrams IV twice daily. Monitor renal function. Agree with heparin infusion, hold Coumadin for now until his hospital course develops in terms of need for invasive procedures. 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 for the evaluation of shortness of breath, congestive heart failure decompensation. Patient is well known to the undersigned. I have followed him on an inpatient an outpatient basis since 2009 for diagnosis of left bundle branch block and permanent atrial fibrillation. he describes worsening shortness of breath x2 weeks duration. His symptoms are specifically worse when he tries to lie supine at night. He has a history of chronic CPAP therapy which she has been compliant with for the last 7 years per his description. When he wakes up he has been feeling like he gasps for air, and has associated chest pressure. Of note, he has a previous history of treatment with low-dose oral furosemide on an as-needed basis but has not been taking this recently. Outpatient Problem List: 1. Permanent atrial fibrillation, refractory to past remote trial of cardioversion 2. Incomplete left bundle branch block , past finding of frequent asymptomatic PVCs 3. Most recent pharmacologic nuclear stress test took place 01/26/2018, with findings of a apical inferior infarct, LVEF 50% 4. sleep apnea with long-time CPAP therapy 5. cerebral atrophy with small-vessel ischemic disease on brain MRI 6. pernicious anemia 7. irritable bowel syndrome 8. Sciatica 9. Depression , anxiety, recent diagnosis to mental health service April 10. Dyslipidemia Allergies Allergy/AdvReac Type Severity Reaction Status Date / Time house dust Allergy Congested Verified 05/11/20 17:45 Home Medications Home Medications Medication Instructions Recorded Confirmed Type albuterol sulfate [ProAir HFA] 1 puff INHALATION Q4H PRN 11/10/18 05/11/20 History allopurinol [Zyloprim] 100 mg PO QAM 11/10/18 05/11/20 History melatonin 5 mg PO HS 11/10/18 05/11/20 History metoprolol succinate [Toprol XL] 25 mg PO QAM 11/10/18 05/11/20 History pantoprazole [Protonix] 20 mg PO QAM 11/10/18 05/11/20 History tamsulosin [Flomax] 0.4 mg PO HS 11/10/18 05/11/20 History erythromycin with ethanol [Mckinley 1 applic TOPICAL DAILY PRN 04/10/20 05/11/20 History Pads] escitalopram oxalate 5 mg PO QAM 04/10/20 05/11/20 History ivermectin 1 % TOPICAL DAILY PRN 04/10/20 05/11/20 History memantine 10 mg PO BID 04/10/20 05/11/20 History vardenafil 20 mg PO DAILY PRN MDD 20 mg 04/10/20 05/11/20 History aripiprazole [Abilify] 5 mg PO QAM 30 Days #30 tab 04/17/20 05/11/20 Rx fluticasone propionate [Flonase] 0 spray INTRANASAL BID 05/11/20 05/11/20 History meclizine 25 mg PO UD PRN 05/11/20 05/11/20 History methylprednisolone 4 mg tablets in 4 mg PO UD #1 packet 05/11/20 05/11/20 Rx a dose pack warfarin 2.5 mg PO MOWEFRSA 05/11/20 05/11/20 History warfarin 5 mg PO SUTUTH 05/11/20 05/11/20 History Patient History Medical History Acne Anxiety Asthma STABLE Atrial fibrillation ON WARFARIN BPH (benign prostatic hyperplasia) Cognitive decline Dehydration Depression Diverticular disease DIVERTICULITIS S/P PERFORATION/COLON RESECTION (2005) GERD (gastroesophageal reflux disease) Gout Hearing deficit BILATERAL AIDES Hyperlipidemia Hypertension IBS (irritable bowel syndrome) LBBB (left bundle branch block) CHRONIC Obesity Osteoarthritis Sciatica Sleep apnea CPAP Vertigo Surgical History History of appendectomy History of bowel resection DIVERTICULITIS S/P PERFORATION/COLON RESECTION (2005) History of colonoscopy History of colostomy SUBSEQUENT REVERSAL History of colostomy reversal History of endoscopic sinus surgery History of esophagogastroduodenoscopy (EGD) History of tonsillectomy Family History Mother Family hx of colon cancer Family history of diabetes mellitus Social History Smoking Status: Former smoker Years Smoked: 20; Cigarettes Per Day: 15; Second Hand Exposure: No; Do You Dip or Chew Tobacco: No; Hx Alcohol Use: No Hx Substance Use: No Preferred Language: Syriac Communication Ability: Effective First Sampler Required: No Beliefs That Will Affect Care: None Current Living Situation: Significant Other Feels Safe at Home: Yes Physical Exam Physical Exam: Temp Pulse Resp BP Pulse Ox 36.5 C 86 14 130/85 98 05/12/20 07:44 05/12/20 09:56 05/12/20 09:56 05/12/20 07:44 05/12/20 09:56 Constitutional: WD/WN, vitals as above Respiratory: Minimal rales noted in the by basilar lung franklin Cardiovascular: Rate/Rhythm: not irregularly irregular Heart Sounds: no murmur Vessels: no JVD Extremities: no edema Gastrointestinal (Abdomen): normal bowel sounds, soft, nontender, no hepatosplenomegaly Neurologic: PERRL, EOMI, accommodation nl, no face palsy, no dysarthria Results & Data ([facility]) Vital Signs (Past 12 Hours) Vital Signs Temp Pulse Pulse Pulse Resp BP Pulse Ox 05/12/20 09:56 86 14 98 05/12/20 07:44 36.5 C 73 18 130/85 98 05/12/20 03:16 36.4 C L 72 18 129/88 94 05/12/20 01:27 82 05/11/20 23:37 80 16 95 05/11/20 23:00 36.6 C 78 18 124/75 93 05/11/20 22:10 76 Laboratory Results Cardiac Enzymes 05/11/20 05/11/20 05/12/20 Range/Units 16:38 21:52 03:53 AST 26 (15-37) U/L Troponin I 0.081 H* 0.077 H* 0.067 H* (0-0.045) ng/ml Coagulation INR on presentation 05/11/2020 was 1.6, most recent PTT 54, repeat INR this morning pending 05/11/20 05/12/20 05/12/20 Range/Units 16:38 00:49 07:59 PT 16.6 H (9.0-12.0) Seconds APTT 32.4 H 41.3 H 54.6 H* (21.0-31.0) Seconds CBC 05/11/20 05/12/20 Range/Units 16:38 03:53 WBC 7.46 8.76 (4.8-10.8) K/uL RBC 4.90 5.34 (4.7-6.1) M/uL Hgb 15.1 16.3 (14.0-18.0) g/dL Hct 45.3 48.1 (42-52) % Plt Count 194 207 (130-400) K/uL Neut # (Auto) 5.23 (1.4-6.5) K/uL Lymph # (Auto) 1.22 (1.2-3.4) K/uL King # (Auto) 0.75 H (0.11-0.59) K/uL Eos # (Auto) 0.22 (0-0.5) K/uL Baso # (Auto) 0.03 (0-0.2) K/uL Comprehensive Metabolic Panel 05/11/20 05/12/20 Range/Units 16:38 03:53 Sodium 140 136 (136-145) mmol/L Potassium 4.1 4.1 (3.5-5.1) mmol/L Chloride 106 101 (98-107) mmol/L Carbon Dioxide 27 27 (21-32) mmol/L BUN 26 H 30 H (7-18) mg/dl Creatinine 1.43 H 1.37 (0.6-1.4) mg/dl Glucose 101 H 114 H (70-99) mg/dl Calcium 8.7 9.3 (8.5-10.1) mg/dl AST 26 (15-37) U/L ALT 24 (12-78) U/L Alkaline Phosphatase 116 (45-117) U/L Total Protein 7.0 (6.4-8.2) gm/dl Albumin 3.1 L (3.4-5.0) gm/dl Intake and Output 05/11/20 05/12/20 05/12/20 22:59 06:59 14:59 Intake Total 268 / 1079.834 811.834 / 1079.834 169.4 / 169.4 Output Total 850 / 2200 1350 / 2200 Balance -582 / -1120.166 -538.166 / -1120.166 169.4 / 169.4 Intake: IV 18 / 329.834 311.834 / 329.834 169.4 / 169.4 HEPARIN SODIUM/DEXTROSE 25,000 18 / 137.334 119.334 / 137.334 169.4 / 169.4 units In 500 ml @ 1,000 UNITS/ HR 20 mls/hr IV .Q24H ALEKSANDRA Rx#: [id number] MAGNESIUM SULFATE / D5W 1 gm In 192.5 / 192.5 100 ml @ 50 mls/hr IV Q2H ALEKSANDRA Rx#:[id number] Oral 250 / 750 500 / 750 Output: Urine 850 / 2200 1350 / 2200 Other: Weight 110 kg 106.7 kg
[2020-05-12 10:19] LABS: INR 1.6 (0.9-1.1)
[2020-05-12 10:23] LABS: Appearance Urine Turbid (Clear); Bacteria Urine Automated Negative (Negative); Bilirubin Urine Negative (Negative); Blood Urine Negative (Negative); Color Urine Yellow; Glucose Urine UA Negative (Negative); Ketones Urine Negative (Negative); Leukocyte Esterase Urine Negative (Negative); Nitrite Urine Negative (Negative); Protein Urine Negative (Negative); RBC Urine Automated 0-4 /hpf (0-4); Specific Gravity Urine 1.014 (1.000-1.030); Urobilinogen Urine Negative (Negative); WBC Urine Automated 0 /hpf (0-5); pH Urine 5.5 (4.5-7.5)
--- NOTE | 2020-05-12 11:30 | Psychiatric Consultation ---
Date of Consultation May 12, 2020 Impression / Recommendations Impression Dr. Ricardo Escobar was directly involved in review and discussion of the patient's case and participated in medical decision making regarding treatment recommendations. RECOMMENDATIONS: 05/12 - Psychiatric consultation requested to evaluate patient for recent psychiatric admission and insomnia, with reports he has been adjusting his psychotropic medications without prescriber guidance. - Ideally, patient would return to his previously prescribed doses of psychotropic medications: escitalopram 20mg, aripiprazole 5mg, and would utilize lorazepam only sparingly. Since patient has been off of these medication for some time and is now dealing with additional cardiac concerns, we will slowly resume these medications. - Pt to receive 2.5mg of aripiprazole today. Escitalopram will be titrated to 10mg starting tomorrow morning. Pt was encouraged to work with his outpatient psychiatrist for further medication adjustments. - Will coordinate outpatient psychiatric services, specifically to ensure his psychiatric appointment is still in place for 05/17/2020. Lauri was to be coordinating therapy services through their system as well. - Pt denies safety concerns or SI and admits that other than recent changes in his physical health, he has been doing rather well. No current indication that patient would require psychiatric hospitalization. - Appreciate the opportunity to participate in the care of this patient. Please reach out with any additional questions or updates. Psych History Identifying Data 79-year-old male admitted medically on 05/11/2020 after presenting to the ED with complaints of shortness of breath for the past two weeks. Psychiatric consultation was requested by hospitalist team to evaluate patient for insomnia and depression, given recent psychiatric hospitalization and patient's reports he has been altering his medication regimen without guidance from a psychiatric prescriber. Chief Complaint "Well...I've been up, down, and sideways. But today, I'm feeling really good." History of Present Illness Ricardo Gray is a 79-year-old male admitted medically on 05/11/2020 after presenting to the ED with shortness of breath for two weeks. Pt is being tr eated for CHF with concern for elevated troponin. PMH is also significant for atrial fibrillation, sleep apnea, and depression. Psychiatric consultation was requested by hospitalist team to evaluate patient for insomnia and depression, with patient reporting he has been adjusting his psychiatric medications without guidance from a prescriber. Pt was admitted to [facility] from 04/10/2020 - 04/17/2020 for SI, worsening mood, and increased anxiety related to numerous situational stressors. Pt was discharged on escitalopram 20mg, aripiprazole 5mg, melatonin 5mg, and a limited amount (#3 tabs) of zolpidem 5mg as needed for insomnia. During that hospitalization, lorazepam, nortriptyline, and bupropion were discontinued. Pt was scheduled for an appointment with Lauri Lou Psychiatrist, on 05/17/2020. Pt was cooperative with psychiatric assessment. He admits that he had been doing well after leaving the mental health unit on 04/17/2020. He reports that the lorazepam was resumed due to insomnia and episodes of intense anxiety - and felt that this adjustment was beneficial. Over time, he began to feel dizzy and "foggy" and reports he began adjusting his medications. Pt claims, "I thought I might have been having too much serotonin. I looked up symptoms and I had like 6 of 8." Pt states he lowered his dose of escitalopram and stopped taking the aripiprazole. Pt admits now, "Well...come to find out it was probably my heart this whole time." Pt acknowledges "I keep running these experiments and they keep leading me the wrong way." Pt admits that he is willing to resume his previous psychotropic medications, as he does feel that they had been beneficial for him. Pt reports plans to follow-up with his outpatient psychiatrist as scheduled to discuss any future adjustments. Pt was encouraged to not make medication changes without first consulting with his medical providers. He denies SI and present safety concerns related to any psychiatric symptoms. Pt denies other needs or concerns at this time. Past Psychiatric History Current Psychiatric Diagnosis: Depression and anxiety Outpatient Services: Psychiatrist - Dr. Claire Carreon Previous Psych Admissions: [facility] in 2003; recent admission to [facility] History of Previous Suicide Attempt: No Past Medication Trials: Reports history of difficulty with multiple medications in the past due to IBS concerns. Specifically mentioned history off: Provigil, Ambien, Serzone, Effexor XR, Risperdal, Klonopin, Lamictal. Allergies Allergy/AdvReac Type Severity Reaction Status Date / Time house dust Allergy Congested Verified 05/11/20 17:45 Home Medications Home Medications Medication Instructions Recorded Confirmed Type albuterol sulfate [ProAir HFA] 1 puff INHALATION Q4H PRN 11/10/18 05/11/20 History allopurinol [Zyloprim] 100 mg PO QAM 11/10/18 05/11/20 History melatonin 5 mg PO HS 11/10/18 05/11/20 History metoprolol succinate [Toprol XL] 25 mg PO QAM 11/10/18 05/11/20 History pantoprazole [Protonix] 20 mg PO QAM 11/10/18 05/11/20 History tamsulosin [Flomax] 0.4 mg PO HS 11/10/18 05/11/20 History erythromycin with ethanol [Mckinley 1 applic TOPICAL DAILY PRN 04/10/20 05/11/20 History Pads] escitalopram oxalate 5 mg PO QAM 04/10/20 05/11/20 History ivermectin 1 % TOPICAL DAILY PRN 04/10/20 05/11/20 History memantine 10 mg PO BID 04/10/20 05/11/20 History vardenafil 20 mg PO DAILY PRN MDD 20 mg 04/10/20 05/11/20 History aripiprazole [Abilify] 5 mg PO QAM 30 Days #30 tab 04/17/20 05/11/20 Rx fluticasone propionate [Flonase] 0 spray INTRANASAL BID 05/11/20 05/11/20 History meclizine 25 mg PO UD PRN 05/11/20 05/11/20 History methylprednisolone 4 mg tablets in 4 mg PO UD #1 packet 05/11/20 05/11/20 Rx a dose pack warfarin 2.5 mg PO MOWEFRSA 05/11/20 05/11/20 History warfarin 5 mg PO SUTUTH 05/11/20 05/11/20 History Family History Pt denied known family history of mental health conditions Substance Abuse History Denies significant alcohol or tobacco use. Denies use of illicit substances. 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 Other Beliefs That Will Affect Care: None History of Legal Problems: Taking another company to court, reporting the co [employer] engineering contracts. Patient History Medical History Acne Anxiety Asthma STABLE Atrial fibrillation ON WARFARIN BPH (benign prostatic hyperplasia) Cognitive decline Dehydration Depression Diverticular disease DIVERTICULITIS S/P PERFORATION/COLON RESECTION (2005) GERD (gastroesophageal reflux disease) Gout Hearing deficit BILATERAL AIDES Hyperlipidemia Hypertension IBS (irritable bowel syndrome) LBBB (left bundle branch block) CHRONIC Obesity Osteoarthritis Sciatica Sleep apnea CPAP Vertigo Surgical History History of appendectomy History of bowel resection DIVERTICULITIS S/P PERFORATION/COLON RESECTION (2005) History of colonoscopy History of colostomy SUBSEQUENT REVERSAL History of colostomy reversal History of endoscopic sinus surgery History of esophagogastroduodenoscopy (EGD) History of tonsillectomy Family History Mother Family hx of colon cancer Family history of diabetes mellitus Social History Smoking Status: Former smoker Years Smoked: 20; Cigarettes Per Day: 15; Second Hand Exposure: No; Do You Dip or Chew Tobacco: No; Hx Alcohol Use: No Hx Substance Use: No Preferred Language: Citizen Of [place] Communication Ability: Effective Surgeon Chief Required: No Beliefs That Will Affect Care: None Current Living Situation: Significant Other Feels Safe at Home: Yes Physical Exam Psychiatric: Orientation: alert, oriented x 3 and cooperative (and pleasant) Apperance: appropriately dressed, appropriately groomed and appeared stated age Eye Contact: good eye contact Motor Behavior: no abnormal motor movements (observed while sitting on edge of bed ) Speech: normal rate/rhythm/volume of speech Affect: euthymic affect (bright, interactive ) and mood congruent with affect Mood: no depressed mood and no anxious mood "Doing really good today" Thought Process: goal directed thought process, clear/coherent thought process and thought association intact Thought Content: reality based without delusions; no hopelessness and no worthlessness Suicidal Thoughts: denies suicidal thoughts and denies suicidal intent Homicidal Thoughts: denies homicidal thoughts Hallucinations: no auditory hallucinations and no visual hallucinations Cognition: recent memory grossly intact, attention grossly intact and language grossly intact Estimated Intelligence: consistent with education level Insight: + fair insight Judgement: + fair judgement Vital Signs (Past 24 Hours): Last Vital Signs Temp 36.5 C 05/12/20 11:09 Pulse 73 05/12/20 11:09 Resp 18 05/12/20 11:09 BP 118/81 05/12/20 11:09 Pulse Ox 95 05/12/20 11:09 Review of Systems Constitutional: denied Cardiovascular: reporting improvement in previously reported cardiac symptoms Respiratory: denied Gastrointestinal: denied Neurological: denied Psychiatric: denies symptoms other than stated above Total of at least 10 systems reviewed, pertinent positives as above and in HPI. Results & Data (PSY) Medications Administered Albuterol (Albuterol Hfa 8 Gm Inhaler) 1 puffs INH Q4R PRN PRN Reason: SOB/WHEEZING Stop: 06/10/20 20:02 Last Admin: 05/12/20 09:56 Dose: 1 puffs Documented by: [id number] Allopurinol (All[facility]urinol 100 Mg Tab) [facility] Stop: 06/11/20 08:59 Last Admin: 05/12/20 09:21 Dose: 100 mg Documented by: [id number] Aripiprazole (Aripiprazole 5 Mg Tab) [facility] Stop: 06/11/20 08:59 Last Admin: 05/12/20 09:28 Dose: Not Given Documented by: [id number] Escitalopram Oxalate (Escitalopram Oxalate 10 Mg Tab) 5 [facility] Stop: 06/11/20 08:59 Last Admin: 05/12/20 09:20 Dose: 5 mg Documented by: [id number] Fluticasone Propionate (Fluticasone Propionate Na Spr 16 Gm Btl) 2 sprays NA BID [facility] Stop: 06/10/20 20:59 Last Admin: 05/12/20 09:20 Dose: 2 sprays Documented by: [id number] Admin: 05/11/20 21:25 Dose: 2 sprays Documented by: [id number] Heparin Sodium/Dextrose (Heparin Sodium/Dextrose) 25,000 units in 500 mls @ 20 mls/hr IV .Q24H [facility]; Protocol Stop: 06/10/20 18:29 Last Titration: 05/12/20 09:43 Dose: 1,100 units/hr, 22 mls/hr Documented by: [id number] Cosigned by: [id number] Titration: 05/12/20 07:07 Dose: 1,100 units/hr, 22 mls/hr Documented by: [id number] Cosigned by: [id number] Titration: 05/12/20 02:01 Dose: 1,100 units/hr, 22 mls/hr Documented by: [id number] Cosigned by: [id number] Titration: 05/11/20 23:14 Dose: 1,000 units/hr, 20 mls/hr Documented by: [id number] Cosigned by: [id number] Titration: 05/11/20 20:03 Dose: 1,000 units/hr, 20 mls/hr Documented by: [id number] Cosigned by: [id number] Admin: 05/11/20 19:09 Dose: 1,000 units/hr, 20 mls/hr Documented by: [id number] Cosigned by: [id number] Furosemide 40 mg/ Syringe 4 mls @ 4 mls/min IV [id number] [facility] Stop: 06/11/20 08:59 Last Admin: 05/12/20 09:20 Dose: 4 mls/min Documented by: [id number] Melatonin (Melatonin 3 Mg Tab) 3 mg PO HS [facility] Stop: 06/10/20 20:59 Last Admin: 05/11/20 21:26 Dose: 3 mg Documented by: [id number] Memantine (Memantine Hcl 10 Mg Tab) 10 mg PO BID [facility] Stop: 06/10/20 20:59 Last Admin: 05/12/20 09:20 Dose: 10 mg Documented by: [id number] Admin: 05/11/20 21:26 Dose: 10 mg Documented by: [id number] Metoprolol Succinate (Metoprolol Succ 25mg Ext Rel Tab) 25 mg PO QAM [facility] Stop: 06/11/20 08:59 Last Admin: 05/12/20 09:20 Dose: 25 mg Documented by: [id number] Pantoprazole Sodium (Pantoprazole 40 Mg Tab) 40 mg PO QAM [facility]; Protocol Stop: 06/11/20 08:59 Last Admin: 05/12/20 09:20 Dose: 40 mg Documented by: [id number] Tamsulosin HCl (Tamsulosin Hcl 0.4 Mg Cap) 0.4 mg PO HS [facility]KSANDRA Stop: 06/10/20 20:59 Last Admin: 05/11/20 21:25 Dose: 0.4 mg Documented by: [id number] Coding Level of Care Code 99433 U Intl Hosp Care Lvl 2
[2020-05-12] MEDS ORDERED: NON-FORMULARY MEDICATION (Methylprednisolone 4 MG) PO SCH (11:45)
[2020-05-12] MEDS ORDERED: methylPREDNISolone 4 MG TAB PO ONE (12:30)
[2020-05-12] MEDS ORDERED: methylPREDNISolone 4 MG TAB, 6 DAY TAPER PO SCH (12:30)
[2020-05-12] MEDS ORDERED: WARFARIN SOD 2.5 MG TAB PO SCH (16:00)
--- NOTE | 2020-05-12 16:20 | Hospitalist Progress Note ---
Date of Service May 12, 2020 Assessment & Plan (1) 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: Patient admitted with shortness of breath dyspnea on exertion, worsening lower extremity edema Echo: Showed left ventricular systolic dysfunction ejection fraction 40-45% down from 2016 echo 50-54% Abnormal septal motion consistent with left bundle branch block, mild diffuse left ventricular hypokinesis Patient input from cardiology Patient will be continued with IV Lasix twice daily Continue to monitor volume status, intake and output Patient given information for low-salt diet (2) Elevated troponin: Minimally elevated troponin, possible type II non-ST elevated OH, demand ischemia in the setting of decompensated CHF Patient does not have any complaint of angina no chest discomfort Echo as outlined above Cardiology following No cardiac intervention indicated, continue medical management (3) Atrial fibrillation: Chronic rate controlled with metoprolol Subtherapeutic INR, initiate IV heparin until INR between > 2 Continue Coumadin as per home regimen is 5 mg Friday, Friday, and 2.5 mg all other days) IV heparin will be discontinued once INR above 2 (4) Sleep apnea: Continue CPAP at night, and during daytime sleeping (5) Depression: Psychiatry input appreciated, antidepressant adjusted per psychiatric team [facility] (6) DVT prophylaxis: warfarin, IV heparin until INR > 2.0 PT/INR daily Follow up: PCP Dr. Felder upon discharge Disposition: Expected to be discharged when medically stable Admission and Anticipated Discharge Date Admission Date: May 11, 2020 Subjective Patient seen and examined at bedside, denies of any shortness of breath no dyspnea on exertion, lower extremity swelling has improved No orthopnea no cough no fever or chills Review of Systems Review of Systems: All systems reviewed & are unremarkable except as noted in HPI & below Cardiovascular: + edema; no chest pain, no dyspnea, no dyspnea at rest, no orthopnea, no paroxysmal nocturnal dyspnea, no lightheadedness and no syncope Physical Exam Constitutional: WD/WN, vitals as above no acute distress Eyes: PERRL, conjunctivae normal, anicteric sclerae ENMT: external ear and nose normal, oropharynx normal Neck: trachea midline, no thyromegaly Respiratory: Auscultation: + crackles and + rales Cardiovascular: Rate/Rhythm: + abnormal rhythm (Chronic A. fib) Extremities: + edema Gastrointestinal (Abdomen): Percussion/Palpation: abdomen soft; abdomen nontender Musculoskeletal: no cyanosis or clubbing, extremities motor strength 5/5 Skin: no rashes, warm and dry Neurologic: PERRL, EOMI, accommodation nl, no face palsy, no dysarthria Psychiatric: A+Ox3, euthymic affect Results & Data Results & Data ([facility]) Vital Signs (Past 12 Hours) Vital Signs Temp Pulse Pulse Pulse Pulse Resp BP 05/12/20 15:40 36.6 C 77 18 05/12/20 11:09 36.5 C 73 18 118/81 05/12/20 09:56 86 14 05/12/20 08:00 76 05/12/20 07:44 36.5 C 73 18 130/85 BP Pulse Ox 05/12/20 15:40 122/85 94 05/12/20 11:09 95 05/12/20 09:56 98 05/12/20 08:00 05/12/20 07:44 98
[2020-05-12] MEDS ORDERED: methylPREDNISolone 4 MG TAB PO SCH (18:00)
[2020-05-12] MEDS: HEPARIN SODIUM/DEXTROSE 25,000 UNITS/500 ML BAG IV SCH (18:03)
[2020-05-12] MEDS: TAMSULOSIN HCL 0.4 MG CAP PO SCH (20:17)
[2020-05-12] MEDS: MELATONIN 3 MG TAB PO SCH (20:17)
[2020-05-13] MEDS: methylPREDNISolone 4 MG TAB PO SCH ×3 (05:27→16:34)
[2020-05-13 05:55] LABS: INR 1.7 (0.9-1.1); Partial Thromboplastin Ratio 1.9; Prothrombin Time 17.7 Seconds (9.0-12.0)
[2020-05-13 05:59] LABS: Calcium 9.4 mg/dl (8.5-10.1); Creatinine Clr Calc Pharmacy 50.2 ml/min; Est GFR (African American) 50.1; Est GFR (Non-African American) 43.2
[2020-05-13 06:42] LABS: Partial Thromboplastin Time 53.8 Seconds (21.0-31.0)
--- NOTE | 2020-05-13 08:21 | Communication Note ---
Date of Service: May 13, 2020 ATTENDING NOTE: AM LABS REVIEWED : Cr worsened 1.53 ( was 1.37 yesterday ) ordered to Hold Lasix -will update Cardiology monitor vol status ordered to check BMP in AM Marichuy Amin MD
[2020-05-13] MEDS ORDERED: ESCITALOPRAM OXALATE 10 MG TAB PO SCH (09:00)
[2020-05-13] MEDS: MEMANTINE HCL 10 MG TAB PO SCH (09:14)
[2020-05-13] MEDS: ARIPiprazole 5 MG TAB PO SCH (09:14)
[2020-05-13] MEDS: FLUTICASONE PROPIONATE NA SPR 16 GM BTL SCH (09:15)
[2020-05-13] MEDS: PANTOprazole 40 MG TAB PO SCH (09:15)
[2020-05-13] MEDS: METOPROLOL SUCC 25MG EXT REL TAB PO SCH (09:15)
[2020-05-13] MEDS: allopurinoL 100 MG TAB PO SCH (09:15)
--- NOTE | 2020-05-13 11:15 | Cardiology Progress Note ---
Date of Service May 13, 2020 Assessment & Plan (1) Acute CHF: Patient with significant interval subjective improvement. 2.2 L of urine out 05/12/2020. 4.38 L of urine output noted 05/13/2020. Creatinine has trended up this morning yesterday. He has a history of stage III chronic kidney disease, and historically, his recent levels have been in the range based on patient in outpatient lab studies. Think that given the amount of diuretic response with symptomatic and clinical improvement, it is reasonable to hold off on further diuretic therapy for today. The patient states he actually feels well enough that he is enthusiastic to go home. Would recommend discharge on furosemide 40 mg daily to start tomorrow 05/14/2020. Recommend close post hospital cardiology follow-up at which time his volume status and clinical progress can be reassessed. Will be especially helpful in terms of determining if he has any symptoms of angina with exertion moving forward. (2) LBBB (left bundle branch block): Chronic finding. Mild left ventricular systolic dysfunction, perhaps related to left bundle branch block. No ischemia on most recent stress test 2017. Mild troponin elevation was flat, and consistent with CHF decompensation rather than an acute coronary syndrome. (3) Atrial fibrillation: History of chronic (permanent) atrial fibrillation, refractory to remote trial of direct-current cardioversion. INR subtherapeutic today at 1.7. I discussed the option of transitioning to a direct oral anticoagulant agent with the patient. Given his age and degree of renal insufficiency, I believe the appropriate dose for him would be Eliquis 2.5 mg twice daily, or Xarelto 15 mg daily. I called his outpatient pharmacy, and it was determined that he would require a prior authorization for such medication. At present, I recommend administering 7.5 mg of Coumadin x1 now instead of his home dose of 5 mg which would be due today. I think it is reasonable to proceed with discharge with close INR follow-up next week. And plans for him to have another 5 mg of Coumadin tomorrow. (4) Stage III chronic kidney disease: Renal function trended up today, but is not too much different than his previous baseline. Follow-up as outpatient. (5) Depression: Psychiatry input noted and appreciated. (6) Lumbar spondylosis: Patient with recent episode of what he describes as his typical "sciatica "pain. He is currently on a methylprednisolone taper. I do not think the methylprednisolone was the cause of his CHF decompensation as he had only received 1 dose prior to his hospital stay, and his shortness of breath and orthopnea and symptoms preceded taking this medication. Anticipate fluid retention while on methylprednisolone, and therefore, discharging him on furosemide 40 mg daily. I spoke to patient's partner, Laura, with whom he lives regarding progress and plan and she was in favor of discharge if felt clinically ready. I called pt's brother, Dr Dimas Gray and updated him regarding findings and plan. Admission and Anticipated Discharge Date Admission Date: May 11, 2020 Subjective Patient seen and examined. He feels great. Telemetry reveals rate controlled atrial fibrillation in the range of 80 to 90 bpm with occasional PVCs. Physical Exam Physical Exam: Temp Pulse Resp BP Pulse Ox 36.4 C L 91 H 18 112/78 93 05/13/20 06:55 05/13/20 08:00 05/13/20 06:55 05/13/20 06:55 05/13/20 06:55 Constitutional: WD/WN, vitals as above Respiratory: normal respiratory effort, lungs clear to auscultation Cardiovascular: Rate/Rhythm: regular rhythm Heart Sounds: no murmur Vessels: no JVD Extremities: no edema Gastrointestinal (Abdomen): normal bowel sounds, soft, nontender, no hepatosplenomegaly Neurologic: PERRL, EOMI, accommodation nl, no face palsy, no dysarthria Results & Data ([facility]) Vital Signs (Past 12 Hours) Vital Signs Temp Pulse Pulse Resp BP Pulse Ox 05/13/20 08:00 91 H 05/13/20 06:55 36.4 C L 82 18 112/78 93 05/13/20 03:16 36.5 C 79 18 111/73 93 Laboratory Results Coagulation INR 1.7 (0.9-1.1) H 05/13/20 05:13 05/13/20 Range/Units 05:13 PT 17.7 H (9.0-12.0) Seconds APTT 53.8 H* (21.0-31.0) Seconds Comprehensive Metabolic Panel 05/13/20 Range/Units 05:13 Sodium 137 (136-145) mmol/L Potassium 4.0 (3.5-5.1) mmol/L Chloride 99 (98-107) mmol/L Carbon Dioxide 32 (21-32) mmol/L BUN 41 H (7-18) mg/dl Creatinine 1.53 H (0.6-1.4) mg/dl Glucose 116 H (70-99) mg/dl Calcium 9.4 (8.5-10.1) mg/dl Intake and Output 05/12/20 05/13/20 05/13/20 22:59 06:59 14:59 Intake Total 605.333 / 2156.333 681.6 / 2156.333 Output Total 1925 / 4300 825 / 4300 Balance -1319.667 / -2143.667 -143.4 / -2143.667 Intake: IV 183.333 / 634.333 281.6 / 634.333 HEPARIN SODIUM/DEXTROSE 25,000 183.333 / 634.333 281.6 / 634.333 units In 500 ml @ 1,100 UNITS/ HR 22 mls/hr IV .[id number] [facility] Rx #:[id number] Oral 422 / 1522 400 / 1522 Output: Urine 1925 / 4300 825 / 4300 Other: Weight 105.9 kg
[2020-05-13] MEDS ORDERED: WARFARIN SOD 7.5 MG TAB PO ONE (11:30)
--- NOTE | 2020-05-13 15:43 | Hospitalist Progress Note ---
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: Resolved, volume status improved to baseline Patient admitted with shortness of breath dyspnea on exertion, worsening lower extremity edema Echo: Showed left ventricular systolic dysfunction ejection fraction 40-45% down from 2016 echo 50-54% Abnormal septal motion consistent with left bundle branch block, mild diffuse left ventricular hypokinesis Patient was treated with Lasix IV 40 mg twice daily, patient diuresed 3.5 L, with negative balance Admitting weight was 113 kg, today weight is down to 105.9 Appreciate input from cardiology Lasix dose on hold today because of the elevated creatinine Patient will be discharged with Lasix 40 mg daily first dose starting from tomorrow 05/14/2020 Patient given information for low-salt diet (2) Elevated troponin: Minimally elevated troponin, possible type II non-ST elevated MD, demand ischemia in the setting of decompensated CHF Patient does not have any complaint of angina no chest discomfort Echo as outlined above Cardiology following No cardiac intervention indicated, continue medical management (3) Atrial fibrillation: Chronic rate controlled with metoprolol Subtherapeutic INR, initiate IV heparin until INR between > 2 Continue Coumadin Patient will be discharged today, INR 1.7 Prescription given for PT/INR check in next week (4) Sleep apnea: Continue CPAP at night, and during daytime sleeping (5) Depression: Patient stopped taking psychiatric medication past few days -thinking his psychiatric medications are because of increased fatigue, shortness of breath orthopnea As patient's decompensated CHF was treated with diuretics Shortness of breath orthopnea dyspnea on exertion has improved remarkably Psych consulted Psychiatry input appreciated, antidepressant -was resumed, And is counseled not to stop any medication without consulting with his physician Patient will continue to follow-up with [facility] psychiatry in clinic Next appointment scheduled with Dr. Eaton on 05/17/2020 at 10:30 AM (6) DVT prophylaxis: warfarin, IV heparin PT/INR daily Follow up: PCP Dr. 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, stable volume status medically cleared to be discharged home, Was feeling foggy, depressed this morning, Psychiatry evaluated the patient, recommends to continue current psychotropic meds, new dose prescription sent to patient's pharmacy Patient denies of any suicidal ideation Revisited later this afternoon, mood stable, feels much better now, To be discharged home, as already scheduled to see his psychiatry on July 17 Review of Systems Review of Systems: All systems reviewed & are unremarkable except as noted in HPI & below Physical Exam Constitutional: WD/WN, vitals as above no acute distress Eyes: PERRL, conjunctivae normal, anicteric sclerae ENMT: external ear and nose normal, oropharynx normal Neck: trachea midline, no thyromegaly Cardiovascular: Rate/Rhythm: + abnormal rhythm (Chronic A. fib) Extremities: + edema Gastrointestinal (Abdomen): Percussion/Palpation: abdomen soft; abdomen nontender Musculoskeletal: no cyanosis or clubbing, extremities motor strength 5/5 Skin: no rashes, warm and dry Neurologic: PERRL, EOMI, accommodation nl, no face palsy, no dysarthria Psychiatric: A+Ox3, euthymic affect Results & Data Results & Data ([facility]) Vital Signs (Past 12 Hours) Vital Signs Temp Pulse Pulse Pulse Resp BP Pulse Ox 05/13/20 15:39 72 05/13/20 15:03 36.5 C 79 18 124/78 92 05/13/20 12:14 82 18 110/78 95 05/13/20 12:07 83 18 110/78 95 05/13/20 11:49 36.5 C 71 18 118/73 95 05/13/20 08:00 91 H 05/13/20 06:55 36.4 C L 82 18 112/78 93
--- NOTE | 2020-05-13 16:26 | Discharge Summary ---
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 Of significance in early April patient did have a recent inpatient psych admission. He states he felt well approximately 3 to 4 days after that admission; however, he then started developing intermittent shortness of breath. Symptoms have worsened over the past 3 to 4 days. He complains of waking up in the middle of the night gasping for air and feeling short of breath with associated chest pressure. He is unsure how long symptoms last but feel likely not more than an hour. Does not take anything to help alleviate symptoms. Has never experienced in past. He does elicit occasional increased to lower extremity edema. He does not monitor his weights. He denies any current chest pressure, but states last felt last evening. He describes it as a pressure, nonradiating, approximately 3/10. Of significance he does have MYRON, but has not been wearing his CPAP for the past 3-4 nights. He previously had been on Lasix as needed, but most recently has not been taking. He has been compliant with his warfarin and states he took 2.5 mg today. Otherwise he is mostly compliant with it. He feels symptoms started after all medication changes he had during his inpatient psych. He admits to not sleeping well and being very drowsy during the day. In ED patient remained hemodynamically stable and saturating well on room air. Lab abnormalities notable for BUN 26, creatinine 1.43, mag 1.7, troponin 0.081, proBNP 1607. INR subtherapeutic at 1.6. Chest x-ray: cardiomegaly and pulmonary vascular congestion with possible mild pulmonary edema, low lung volumes with basilar opacities favor atelectasis, possible small left pleural effusion. He received 40 mg IV Lasix when in ED and approximately 20 minutes later had 700 mls of urine output. He is feeling better than arrival. Principal Diagnosis 1) Acute CHF: Heart failure with systolic dysfunction (HFrEF) (2) Elevated troponin I level: (3) LBBB (left bundle branch block): (4) Atrial fibrillation: Discharge Exam Constitutional WD/WN, vitals as above no acute distress Eyes PERRL, conjunctivae normal, anicteric sclerae ENMT external ear and nose normal, oropharynx normal Neck trachea midline, no thyromegaly Respiratory Auscultation: + crackles and + rales Cardiovascular Rate/Rhythm: + abnormal rhythm (Chronic A. fib) Extremities: + edema Gastrointestinal (Abdomen) Percussion/Palpation: abdomen soft; abdomen nontender Musculoskeletal no cyanosis or clubbing, extremities motor strength 5/5 Skin no rashes, warm and dry Neurologic PERRL, EOMI, accommodation nl, no face palsy, no dysarthria Psychiatric A+Ox3, euthymic affect Discharge Data Allergies Allergy/AdvReac Type Severity Reaction Status Date / Time house dust AdvReac Mild Congested Verified 05/13/20 11:17 Consultations 05/11/20 17:55 ED Decision to Admit Stat 05/11/20 20:00 Consult Cardiology Routine Consult Psychiatry Routine Hospital Course (1) 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: Resolved, volume status improved to baseline Patient admitted with shortness of breath dyspnea on exertion, worsening lower extremity edema Echo: Showed left ventricular systolic dysfunction ejection fraction 40-45% down from 2016 echo 50-54% Abnormal septal motion consistent with left bundle branch block, mild diffuse left ventricular hypokinesis Patient was treated with Lasix IV 40 mg twice daily, patient diuresed 3.5 L, with negative balance Admitting weight was 113 kg, today weight is down to 105.9 Appreciate input from cardiology Lasix dose on hold today because of the elevated creatinine Patient will be discharged with Lasix 40 mg daily first dose starting from tomorrow 05/14/2020 Patient given information for low-salt diet (2) Elevated troponin: Minimally elevated troponin, possible type II non-ST elevated LA, demand ischemia in the setting of decompensated CHF Patient does not have any complaint of angina no chest discomfort Echo as outlined above Cardiology following No cardiac intervention indicated, continue medical management (3) Atrial fibrillation: Chronic rate controlled with metoprolol Subtherapeutic INR, initiate IV heparin until INR between > 2 Continue Coumadin Patient will be discharged today, INR 1.7 Prescription given for PT/INR check in next week (4) Sleep apnea: Continue CPAP at night, and during daytime sleeping (5) Depression: Patient stopped taking psychiatric medication past few days -thinking his psychiatric medications are because of increased fatigue, shortness of breath orthopnea As patient's decompensated CHF was treated with diuretics Shortness of breath orthopnea dyspnea on exertion has improved remarkably Psych consulted Psychiatry input appreciated, antidepressant -was resumed, And is counseled not to stop any medication without consulting with his physician Patient will continue to follow-up with [facility] in clinic Next appointment scheduled with Dr. Eaton on 05/17/2020 at 10:30 AM (6) DVT prophylaxis: warfarin, IV heparin PT/INR daily Follow up: PCP Dr. Felder upon discharge/follow-up scheduled if on 05/16/2020 at 4:20 PM Disposition: Patient is stable to be discharged home today Total Time Total Time Spent Total Time Spent (In Minutes): 35 minutes Total Time Includes: Examination of the Patient, Discharge Planning, Medication Reconciliation and Communication With Other Providers Discharge Plan Discharge Items Patient Disposition: Home - Self-Care Reason For Visit: CHF EXAC Discharge Diagnosis: 1) Acute CHF: Heart failure with systolic dysfunction (HFrEF) (2) Elevated troponin I level: (3) LBBB (left bundle branch block): (4) Atrial fibrillation: Condition on Discharge: Good Activity: Resume your previous activity Non-emergency contact: Primary Care Provider and Electronics Maintenance Technician Call non-emergency contact if: you have any medication questions Follow-up/Referrals: Dimas Romero DO [Electronics Maintenance Technician] - Eamon Felder DO [Primary Care Provider] - 05/16/20 4:20 pm Diet: Heart Healthy and Low Sodium (2gm) Ambulatory Orders: Basic Metabolic Panel (Routine) Timeframe: 1 Week Location: Determined by Patient Ordered By: Marichuy Amin Prothrombin Time INR (Routine) Timeframe: 1 Week Location: Determined by Patient Ordered By: Marichuy Amin Add Attending Provider Instructions: Hospital follow-up with your family physician scheduled on May 16 at 4:[address] Eamon Schrader Follow-up with psychiatrist Dr. Claire Eaton on 05/17/2020 at 10:30 AM at psychiatric clinic [facility] Lab work: Basic metabolic panel, PT INR check with next physician visit Call your Primary Care doctor if any of the following symptoms or problems start or get worse: * Shortness of breath or difficulty breathing * Wake up at night short of breath * Chest pain * Cough * Swelling of your hands, feet, or legs * More fatigued or tired with your normal activity * Palpitations - sudden fast heart beats WEIGHT * Weigh yourself every morning after using the bathroom. * Use the same scale. * Wear the same amount of clothing. * Write your weight down on a chart. * Call your Primary Care doctor if you gain more than 2-3 pounds in 1-2 days. MEDICATIONS * Use this discharge instruction sheet for medication instructions. * Take your medications at the time your doctor ordered. * Do not skip a dose of your medicines. * If you miss a dose of medicine, take it as soon as possible, but DO NOT DOUBLE A DOSE. * Read your medicine information when you get home. * Know all of the side effects of your medicine. If in doubt, ask your pharmacist * Call your Primary Care doctor's office if you have any side effects. * Be sure all of your doctors know what medicine and herbs you take (including cold, flu, and herbal medicine). Take the following with you to your follow-up doctor appointments: * Weight Chart * Medication List * List of questions Do not drink excessive alcohol, beer or wine. Pending Studies at Discharge: Yes Studies:: LAB: BASIC METABOLIC PANEL PT/INR CHECK NEXT WEEK Stand-Alone Forms: [facility] [employer] [place], Smoking Cessation Medications and DC Order Prescriptions: New furosemide [Lasix] 40 mg tablet 40 mg PO DAILY Qty: 30 RF: 3 escitalopram oxalate 20 mg tablet 20 mg PO QAM Qty: 30 RF: 4 aripiprazole [Abilify] 5 mg Tablet 5 mg PO QAM 30 Days Qty: 30 RF: 3 Continued methylprednisolone 4 mg tablets,dose pack 4 mg PO UD Qty: 1 RF: 0 meclizine 25 mg tablet 25 mg PO UD PRN (Reason: Dizziness) RF: 0 fluticasone propionate 50 mcg/actuation [place],Suspension 0 spray INTRANASAL BID RF: 0 warfarin 2.5 mg Tablet 2.5 mg PO MOWEFRSA RF: 0 warfarin 5 mg tablet 5 mg PO SUTUTH RF: 0 allopurinol [Zyloprim] 100 mg Tablet 100 mg PO QAM RF: 0 tamsulosin [Flomax] 0.4 mg Capsule 0.4 mg PO HS RF: 0 pantoprazole [Protonix] 40 mg Tablet,Delayed Release (Dr/Ec) 20 mg PO QAM RF: 0 metoprolol succinate [Toprol XL] 25 mg Tablet Extended Release 24 Hr 25 mg PO QAM RF: 0 albuterol sulfate [ProAir HFA] 90 mcg/actuation Hfa Aerosol Inhaler 1 puff INHALATION Q4H PRN (Reason: SOB/WHEEZING) RF: 0 melatonin 5 mg Capsule 5 mg PO HS RF: 0 erythromycin with ethanol [Mckinley Pads] 2 % swab 1 applic TOPICAL DAILY PRN (Reason: rash) RF: 0 memantine 10 mg tablet 10 mg PO BID RF: 0 ivermectin 1 % topical DAILY PRN (Reason: Acne) RF: 0 vardenafil 20 mg PO DAILY MDD 20 mg PRN (Reason: Erectile Dysfunction) RF: 0 Discharge Orders: Discharge Order (Routine); Ordered 05/13/20 Ordered By: Marichuy Garcia/Other Patient Handouts: Tips for Using Less Salt, Low-Salt Choices, Diet Low Salt Dc Admission Data Admit Date/Time: 05/11/20 18:24 Attending Provider: Marichuy Amin Admit Provider: Jamal Casillas Primary Care Provider: Eamon Felder Other Providers: Jamal Casillas ; Paul Messer ; Luis Alberto Harris Other Interventions: Discharge Summary Assessment (RN) Last Done: 05/13/20 16:21
[2020-05-13] MEDS ORDERED: methylPREDNISolone 4 MG TAB PO SCH (21:00)
--- NOTE | 2020-05-13 22:53 | Electrocardiogram Report ---
Test Reason : Blood Pressure : / mmHG Vent. Rate : 082 BPM Atrial Rate : 078 BPM P-R Int : 000 ms QRS Dur : 132 ms QT Int : 394 ms P-R-T Axes : 000 -46 012 degrees QTc Int : 460 ms Poor data quality, interpretation may be adversely affected Atrial fibrillation with premature ventricular or aberrantly conducted complexes Left axis deviation Non-specific intra-ventricular conduction block Abnormal ECG When compared with ECG of 10-APR-2020 17:37, No significant change was found Confirmed by Yousif Elkins ([id number]) on 05/13/2020 10:53:22 PM Referred By: REFERRED SELF Confirmed By:Yousif Elkins
--- NOTE | 2020-05-14 04:31 | Electrocardiogram Report ---
Test Reason : Blood Pressure : / mmHG Vent. Rate : 078 BPM Atrial Rate : 000 BPM P-R Int : 000 ms QRS Dur : 140 ms QT Int : 410 ms P-R-T Axes : 000 -58 012 degrees QTc Int : 467 ms Atrial fibrillation Left axis deviation Non-specific intra-ventricular conduction block Minimal voltage criteria for LVH, may be normal variant Abnormal ECG When compared with ECG of 11-MAY-2020 16:48, No significant change was found Confirmed by Yousif Elkins ([id number]) on 05/14/2020 4:31:01 AM Referred By: REFERRED SELF Confirmed By:Yousif Elkins
[2020-05-14] MEDS ORDERED: methylPREDNISolone 4 MG TAB PO SCH (07:00)
[2020-05-14] MEDS ORDERED: FUROSEMIDE 40 MG TAB PO SCH (09:00)
[2020-05-14] MEDS ORDERED: WARFARIN SOD 5 MG TAB PO SCH (16:00)
[2020-05-15] MEDS ORDERED: methylPREDNISolone 4 MG TAB PO SCH (07:00)
[2020-05-16] MEDS ORDERED: methylPREDNISolone 4 MG TAB PO SCH (07:00)
[2020-05-17] MEDS ORDERED: methylPREDNISolone 4 MG TAB PO SCH (07:00)
== END 2020-05-13 18:35 | disposition home or self-care (01) | DRG 291 ==
LOC: ED 16:01 → SUATTDRO 18:24 → 2N 18:24

== ENCOUNTER 2020-05-17 01:08 | Inpatient (IN) ==
[2020-05-17] MEDS ORDERED: HYDROmorphone INJ 0.5 MG/0.5 ML SYR IV STA (02:05)
[2020-05-17 02:13] LABS: Basophils # (auto) 0.02 K/uL (0-0.2); Basophils % (auto) 0.1 %; Eosinophils % (auto) 0.7 %; Hematocrit (blood only) 49.3 % (42-52); Hemoglobin 17.2 g/dL (14.0-18.0); Immature Granulocytes # (auto) 0.06 K/uL (0.00-0.02); Immature Granulocytes % (auto) 0.4 %; Lymphocytes # (auto) 1.97 K/uL (1.2-3.4); Lymphocytes % (auto) 12.9 %; Mean Corpuscular Hemoglobin 31.2 pg (25-34); Mean Corpuscular Hgb Conc 34.9 g/dL (32-36); Mean Corpuscular Volume 89.5 fL (80-100); Mean Platelet Volume 10.8 fL (7.4-10.4); Monocytes # (auto) 1.97 K/uL (0.11-0.59); Monocytes % (auto) 12.9 %; Platelet Count 234 K/uL (130-400); RDW Coefficient of Variation 15.1 % (11.5-14.5); RDW Standard Deviation 49.8 fL (36.4-46.3); Red Blood Count 5.51 M/uL (4.7-6.1); White Blood Count 15.32 K/uL (4.8-10.8)
[2020-05-17 02:28] LABS: Albumin Globulin Ratio 0.8 (0.9-2); Albumin Level 3.3 gm/dl (3.4-5.0); BUN Creatinine Ratio 34.3 (10-20); Bilirubin,Total 1.1 mg/dl (0.2-1); Calcium 8.8 mg/dl (8.5-10.1); Est GFR (African American) 55.8; Est GFR (Non-African American) 48.1; Globulin 4.3 gm/dl (2.5-4.0); Potassium 3.5 mmol/L (3.5-5.1); Total Protein 7.6 gm/dl (6.4-8.2)
[2020-05-17] MEDS ORDERED: IOVERSOL 100ml IV ONE (03:23)
[2020-05-17] MEDS ORDERED: SODIUM CHLORIDE 0.9% 500 ML IV ONE (03:33)
--- NOTE | 2020-05-17 04:36 | Emergency Department Note ---
Impression & Plan Acute pancreatitis ED Provider Note NAME: PAVEL SEGURA AGE: 79 SEX: M ARRIVES VIA: Ambulance INFORMANT: Patient, his ED PROVIDER(S): Chelsy Perry DO CHIEF COMPLAINT: Abdominal pain PLAN: Dis[facility]: [facility] Condition: Good MEDICAL DECISION MAKING: This is a 79-year-old male patient who presents to the emergency department with diffuse abdominal pain that radiates into his right chest. He denies ever having pain like this in the past. Laboratory values drawn here in the emergency department showed an elevated lipase. CT scan confirms evidence of peripancreatic inflammation concerning for acute pancreatitis. Patient's pain was controlled with IV analgesia. The patient remains on IV fluids and n.p.o. status and case [facility] and they will evaluate for further management. Triage Nursing notes reviewed and agree them. Additional history obtained from patient's who was at the bedside Prior medical records reviewed Vital Signs: reviewed and unremarkable Differential diagnosis: Diverticulitis, colitis, pancreatitis, cholecystitis, perforated viscus ER treatment provided: IV normal saline solution IV Dilaudid Diagnostics interpreted by me: ECG: Atrial fibrillation with PVCs at a rate of 77. No obvious signs of ischemia. This was compared to an EKG from earlier this month was unchanged. Cardiac Monitoring: A. fib at a rate of 72 Laboratory studies: See below Imaging studies: As per stat rad CT abdomen and pelvis with contrast: There is fatty infiltration of the pancreas. There is suggestion of slight peripancreatic fat stranding involving the tail of the pancreas consistent with mild acute pancreatitis. Correlate with serum lipase. No pseudocyst or necrosi s identified. There is mild fatty infiltration of the liver without hepatomegaly. There is a 2.1 cm simple liver cyst. The gallbladder, spleen, adrenal glands and kidneys appear nonacute. No hydrone phrosis or your ureterolithiasis is seen. Incidental note is made of a 3.4 cm right renal cyst. Bowel loops are nondilated. There is a moderate amount of stool in the right colon measuring 6.3 cm suggesting mild constipation. There is an anastomotic staple line of the sigmoid colon. There is mild diverticulosis. No acute inflammatory changes are seen involving the bowel. Severe multilevel degenerative changes in the lower lumbar spine. No fracture or subluxation. HPI: 79/M arrives for evaluation of abdominal pain. Patient developed some indigestion earlier today. He denies any nausea or vomiting. He did not think much of this until he developed increasing epigastric abdominal pain that seem to radiate up into his right chest. He went on to eat a normal dinner but then developed belching and began to pass gas. He tried to have bowel movements which were hard as he describes it. The patient was unable to get comfortable to go to sleep tonight and decided to come to the emergency department. ROS: See above HPI for pertinent positives & negatives. A total of 10 systems reviewed and were otherwise negative. PAST MEDICAL HISTORY:See Below PAST SURGICAL HISTORY:See Below FAMILY HISTORY:See Below SOCIAL HISTORY:See Below HOME MEDICATIONS:See list ALLERGIES:See list VITALS:See Below PHYSICAL EXAMINATION: HEENT: Head - normocephalic and atraumatic Pupils are equal, round, and reactive to light. Extraocular eye muscles are intact, and sclera are anic teric. Nose - moist nasal mucosa without discharge. Mouth - moist buccal mucosa. Oropharynx is nonerythematous and there is no tonsillar exudate or edema noted. Neck: Supple; no JVD, nuchal rigidity, cervical lymphadenopathy. Heart: Regular rate and rhythm. There is a normal S1 and S2 with no murmurs, clicks, or gallops appreciated. Lungs: Clear to auscultation bilaterally with no wheezes, rales, or rhonchi. Abdomen: Soft, mildly distended with epigastric and right upper quadrant abdominal pain with palpation with good bowel sounds. There are no palpable pulsatile masses or hepatosplenomegaly. There is no guarding, rigidity, or rebound noted. Extremities: No evidence of cyanosis, clubbing, or edema. There are easily palpable peripheral pulses. Skin: warm and dry with good turgor and no rashes. ED COURSE: Times/Reassessments: 0125: The patient was evaluated in room C7. A complete history and physical was performed. An order was placed for continuous cardiac monitoring. The patient remained in A. fib at a rate of 77. An IV lock was initiated and labs were drawn as above. A twelve-lead EKG was obtained as described above. The patient went for a CT of the abdomen pelvis The patient was given IV Dilaudid and IV normal saline solution. 0435: The patient was rechecked at this time and is feeling more comfortable. I discussed the results with the patient and explained that he would be kept n.p.o. on IV crystalloid therapy. Dr. Mccormick will evaluate for admission to the hospital. Chelsy Perry DO Past Med/Surg History Medical History (Updated 05/17/20 @ 22:35 by Chelsy Perry DO) Acne Anxiety Asthma STABLE Atrial fibrillation ON WARFARIN BPH (benign prostatic hyperplasia) Cognitive decline Dehydration Depression Diverticular disease DIVERTICULITIS S/P PERFORATION/COLON RESECTION (2005) GERD (gastroesophageal reflux disease) Gout Hearing deficit BILATERAL AIDES Hyperlipidemia Hypertension IBS (irritable bowel syndrome) LBBB (left bundle branch block) CHRONIC Obesity Osteoarthritis Sciatica Sleep apnea CPAP Vertigo Surgical History History of appendectomy History of bowel resection DIVERTICULITIS S/P PERFORATION/COLON RESECTION (2005) History of colonoscopy History of colostomy SUBSEQUENT REVERSAL History of colostomy reversal History of endoscopic sinus surgery History of esophagogastroduodenoscopy (EGD) History of tonsillectomy Family History Mother Family hx of colon cancer Family history of diabetes mellitus Social History Smoking Status: Former smoker Cigarettes Per Day: 15; Second Hand Exposure: No; Hx Alcohol Use: No Hx Substance Use: No Preferred Language: Bermudian Communication Ability: Effective Senior Clinical Data Coordinator Required: No Beliefs That Will Affect Care: None Current Living Situation: Spouse Feels Safe at Home: Yes Allergies Allergies Allergy/AdvReac Type Severity Reaction Status Date / Time house dust AdvReac Mild Congested Verified 05/17/20 01:47 Home Meds Home Medications Medication Instructions Recorded Confirmed albuterol sulfate [ProAir HFA] 1 puff INHALATION Q4H PRN 11/10/18 05/17/20 allopurinol [Zyloprim] 100 mg PO QAM 11/10/18 05/17/20 melatonin 5 mg PO HS 11/10/18 05/17/20 metoprolol succinate [Toprol XL] 25 mg PO QAM 11/10/18 05/17/20 pantoprazole [Protonix] 20 mg PO QAM 11/10/18 05/17/20 tamsulosin [Flomax] 0.4 mg PO HS 11/10/18 05/17/20 erythromycin with ethanol [Mckinley 1 applic TOPICAL DAILY PRN 04/10/20 05/17/20 Pads] ivermectin 1 % TOPICAL DAILY PRN 04/10/20 05/17/20 memantine 10 mg PO BID 04/10/20 05/17/20 vardenafil 20 mg PO DAILY PRN MDD 20 mg 04/10/20 05/17/20 fluticasone propionate 0 spray INTRANASAL BID 05/11/20 05/17/20 meclizine 25 mg PO UD PRN 05/11/20 05/17/20 apixaban [Eliquis] 2.5 mg PO BID 05/17/20 05/17/20 Previous Rx's Medication Instructions Recorded aripiprazole [Abilify] 5 mg PO QAM 30 Days #30 tab 05/13/20 escitalopram oxalate 20 mg PO QAM #30 tab 05/13/20 furosemide [Lasix] 40 mg PO DAILY #30 tab 05/13/20 Results & Data (ED) Vital Signs Vital Signs - 24 hr 05/17/20 01:10 05/17/20 01:24 05/17/20 02:04 Temperature 36.7 C Temperature Source Oral Pulse Rate 78 83 73 Pulse Rate from SpO2 Sensor 77 76 Respiratory Rate 22 20 23 Respiratory Effort / Characteristics Non-Labored Spontaneous Respiratory Depth Normal Blood Pressure 105/78 105/78 111/66 Blood Pressure Mean 80 87 95 Blood Pressure Position Sitting Pulse Oximetry 94 92 93 Oxygen Delivery Method Room Air Sepsis Recent Fever Within 48 Hours No Sepsis New/Unexplained Change in Mental Status N/A Sepsis Action Taken by Nursing No Action Required 05/17/20 02:30 05/17/20 03:00 05/17/20 03:30 Temperature Temperature Source Pulse Rate 72 76 75 Pulse Rate from SpO2 Sensor 69 78 79 Respiratory Rate 14 17 15 Respiratory Effort / Characteristics Respiratory Depth Blood Pressure 103/62 113/75 100/71 Blood Pressure Mean 73 80 77 Blood Pressure Position Pulse Oximetry 92 92 93 Oxygen Delivery Method Sepsis Recent Fever Within 48 Hours Sepsis New/Unexplained Change in Mental Status Sepsis Action Taken by Nursing 05/17/20 04:00 05/17/20 04:30 05/17/20 04:37 Temperature Temperature Source Pulse Rate 74 73 74 Pulse Rate from SpO2 Sensor 76 73 77 Respiratory Rate 17 14 17 Respiratory Effort / Characteristics Respiratory Depth Blood Pressure 113/72 108/76 108/76 Blood Pressure Mean 79 92 92 Blood Pressure Position Pulse Oximetry 95 93 97 Oxygen Delivery Method Sepsis Recent Fever Within 48 Hours Sepsis New/Unexplained Change in Mental Status Sepsis Action Taken by Nursing 05/17/20 05:00 Temperature Temperature Source Pulse Rate 77 Pulse Rate from SpO2 Sensor 79 Respiratory Rate 18 Respiratory Effort / Characteristics Respiratory Depth Blood Pressure 123/87 Blood Pressure Mean 99 Blood Pressure Position Pulse Oximetry 97 Oxygen Delivery Method Sepsis Recent Fever Within 48 Hours Sepsis New/Unexplained Change in Mental Status Sepsis Action Taken by Nursing Laboratory Data Result diagrams: 05/17/20 00:55 05/17/20 00:55 Lab Results 05/17/20 05/17/20 Range/Units 00:55 00:55 WBC 15.32 H (4.8-10.8) K/uL RBC 5.51 (4.7-6.1) M/uL Hgb 17.2 (14.0-18.0) g/dL Hct 49.3 (42-52) % MCV 89.5 (80-100) fL MCH 31.2 (25-34) pg MCHC 34.9 (32-36) g/dL RDW Std Deviation 49.8 H (36.4-46.3) fL RDW Coeff of Henry 15.1 H (11.5-14.5) % Plt Count 234 (130-400) K/uL MPV 10.8 H (7.4-10.4) fL Immature Gran % (Auto) 0.4 % Neut % (Auto) 73.0 % Lymph % (Auto) 12.9 % [place] % (Auto) 12.9 % Eos % (Auto) 0.7 % Baso % (Auto) 0.1 % Neut # (Auto) 11.20 H (1.4-6.5) K/uL Lymph # (Auto) 1.97 (1.2-3.4) K/uL [place] # (Auto) 1.97 H (0.11-0.59) K/uL Eos # (Auto) 0.10 (0-0.5) K/uL Baso # (Auto) 0.02 (0-0.2) K/uL Immature Gran # (Auto) 0.06 H (0.00-0.02) K/uL Sodium 139 (136-145) mmol/L Potassium 3.5 (3.5-5.1) mmol/L Chloride 102 (98-107) mmol/L Carbon Dioxide 27 (21-32) mmol/L Anion Gap 10.0 (3-11) BUN 48 H (7-18) mg/dl Creatinine 1.40 (0.6-1.4) mg/dl Est Cr Clr Drug Dosing 55.0 ml/min Est GFR ( Amer) 55.8 Est GFR (Non-Af Amer) 48.1 BUN/Creatinine Ratio 34.3 H (10-20) Glucose 129 H (70-99) mg/dl Calcium 8.8 (8.5-10.1) mg/dl Total Bilirubin 1.1 H (0.2-1) mg/dl AST 30 (15-37) U/L ALT 36 (12-78) U/L Alkaline Phosphatase 106 (45-117) U/L Total Protein 7.6 (6.4-8.2) gm/dl Albumin 3.3 L (3.4-5.0) gm/dl Globulin 4.3 H (2.5-4.0) gm/dl Albumin/Globulin Ratio 0.8 L (0.9-2) Lipase 1531 H (73-393) U/L Specimen Hemolysis Administered Medications Acetaminophen (Acetaminophen 325 Mg Tab) 650 mg PO Q4H PRN PRN Reason: Pain or Fever Stop: 06/16/20 06:03 Last Admin: 05/17/20 09:25 Dose: 650 mg Documented by: [id number] Allopurinol (Allopurinol 100 Mg Tab) 100 mg PO [facility] Stop: 06/16/20 08:59 Last Admin: 05/17/20 09:28 Dose: 100 mg Documented by: [id number] Apixaban (Apixaban 2.5 Mg Tab) 2.5 mg PO BID [facility] Stop: 06/16/20 08:59 Last Admin: 05/17/20 20:52 Dose: 2.5 mg Documented by: [id number] Admin: 05/17/20 09:27 Dose: 2.5 mg Documented by: [id number] Aripiprazole (Aripiprazole 5 Mg Tab) [facility] Stop: 06/16/20 08:59 Last Admin: 05/17/20 09:28 Dose: 5 mg Documented by: [id number] Escitalopram Oxalate (Escitalopram Oxalate 20 Mg Tab) 20 mg PO QAM ALEKSANDRA Stop: 06/16/20 08:59 Last Admin: 05/17/20 09:28 Dose: 20 mg Documented by: [id number] Fluticasone Propionate (Fluticasone Propionate Na Spr 16 Gm Btl) 0 sprays NA BID ALEKSANDRA Stop: 06/16/20 08:59 Last Admin: 05/17/20 20:50 Dose: 3 sprays Documented by: [id number] Admin: 05/17/20 09:27 Dose: 3 sprays Documented by: [id number] Sodium Chloride (Nss 1000ml) 1,000 mls @ 100 mls/hr IV .Q10H ALEKSANDRA Stop: 06/16/20 06:03 Last Admin: 05/17/20 17:02 Dose: 100 mls/hr Documented by: [id number] Infusion: 05/17/20 17:02 Dose: 100 mls/hr Documented by: [id number] Infusion: 05/17/20 13:13 Dose: 100 mls/hr Documented by: [id number] Infusion: 05/17/20 12:15 Dose: 0 mls/hr Documented by: [id number] Admin: 05/17/20 06:20 Dose: 100 mls/hr Documented by: [id number] Melatonin (Melatonin 3 Mg Tab) 3 mg PO HS ALEKSANDRA Stop: 06/16/20 20:59 Last Admin: 05/17/20 20:50 Dose: 3 mg Documented by: [id number] Memantine (Memantine Hcl 10 Mg Tab) 10 mg PO BID ALEKSANDRA Stop: 06/16/20 08:59 Last Admin: 05/17/20 20:52 Dose: 10 mg Documented by: [id number] Admin: 05/17/20 09:27 Dose: 10 mg Documented by: [id number] Metoprolol Succinate (Metoprolol Succ 25mg Ext Rel Tab) 25 mg PO QAM ALEKSANDRA Stop: 06/16/20 08:59 Last Admin: 05/17/20 09:27 Dose: 25 mg Documented by: [id number] Morphine Sulfate (Morphine Sulfate 4 Mg/Ml 1 Ml Carp\Vial) 3 mg IV Q4H PRN PRN Reason: Pain Stop: 05/31/20 06:03 Last Admin: 05/17/20 11:54 Dose: 3 mg Documented by: [id number] Pantoprazole Sodium (Pantoprazole 40 Mg Tab) 40 mg PO QAM ALEKSANDRA Stop: 06/16/20 08:59 Last Admin: 05/17/20 09:28 Dose: 40 mg Documented by: [id number] Tamsulosin HCl (Tamsulosin Hcl 0.4 Mg Cap) 0.4 mg PO HS [facility] Stop: 06/16/20 20:59 Last Admin: 05/17/20 20:52 Dose: 0.4 mg Documented by: [id number] Discontinued Medications Bisacodyl (Bisacodyl 10 Mg Supp) 10 mg ND NOW STA Stop: 05/17/20 06:16 Last Admin: 05/17/20 06:33 Dose: Not Given Documented by: [id number] Dicyclomine HCl (Dicyclomine Hcl 10 Mg Cap) 10 mg PO NOW ONE Stop: 05/17/20 12:06 Last Admin: 05/17/20 18:28 Dose: Not Given Documented by: [id number] Hydromorphone HCl (Hydromorphone Inj 0.5 Mg/0.5 Ml Syr) 0.5 mg IV NOW STA Stop: 05/17/20 02:06 Last Admin: 05/17/20 02:26 Dose: 0.5 mg Documented by: [id number] Sodium Chloride (Nss) 500 mls @ 999 mls/hr IV .Q31M ONE Stop: 05/17/20 04:03 Last Infusion: 05/17/20 05:08 Dose: 0 mls/hr Documented by: [id number] Admin: 05/17/20 04:37 Dose: 999 mls/hr Documented by: [id number] Sodium Chloride (Nss) 500 mls @ 125 mls/hr IV .Q4H ALEKSANDRA Stop: 06/16/20 04:44 Last Infusion: 05/17/20 06:14 Dose: 0 mls/hr Documented by: [id number] Admin: 05/17/20 05:49 Dose: 125 mls/hr Documented by: [id number] Ioversol (Ioversol 100ml) 100 ml IV ONCE ONE Stop: 05/17/20 03:24 Last Admin: 05/17/20 03:24 Dose: 93 ml Documented by: [id number] Discharge Plan Visit Data Chief Complaint: Abdominal Pain Stated Complaint: ABDOMINAL PAIN ED Provider: Chelsy Perry Discharge Problem: Acute pancreatitis Patient Disposition: Admitted As Inpatient Discharge Instructions Interventions: ED Discharge Assessment Last Done: 05/17/20 05:42 Discharge Problem: Acute pancreatitis Qualifiers: Pancreatitis type: unspecified pancreatitis type Acute pancreatitis compl ication: no infection or necrosis Qualified Code(s): K85.90 - Acute pancreatitis without necrosis or infection, unspecified
[2020-05-17] MEDS ORDERED: SODIUM CHLORIDE 0.9% 500 ML IV SCH (04:45)
[2020-05-17] MEDS ORDERED: [UNRECOGNIZED DRUG - OTHER] TOP PRN (06:04)
[2020-05-17] MEDS ORDERED: MoRPHine SULFATE 4 MG/ML 1 ML CARP\\VIAL IV PRN (06:04)
[2020-05-17] MEDS ORDERED: ERYTHROMYCIN TOP PRN (06:04)
[2020-05-17] MEDS ORDERED: ONDANSETRON INJ 2 MG/ML 2 ML VIAL IV PRN (06:04)
[2020-05-17] MEDS ORDERED: POLYETHYLENE (MIRALAX) 17 GM PACK PO PRN (06:04)
[2020-05-17] MEDS ORDERED: ACETAMINOPHEN 325 MG TAB PO PRN (06:04)
[2020-05-17] MEDS ORDERED: NITROGLYCERIN SL 0.4 MG/TAB TAB SL PRN (06:04)
[2020-05-17] MEDS ORDERED: ALBUTEROL HFA 8 GM INHALER INH PRN (06:10)
[2020-05-17] MEDS ORDERED: bisacodyL 10 MG SUPP PR STA (06:15)
[2020-05-17] MEDS ORDERED: MECLIZINE HCL 25 MG TAB PO PRN (06:16)
[2020-05-17] MEDS: SODIUM CHLORIDE 0.9% 1000ML 1,000 ML IV SCH ×2 (06:20→17:02)
--- NOTE | 2020-05-17 06:50 | History and Physical Report ---
DATE OF ADMISSION: 05/17/2020 CHIEF COMPLAINT: Abdominal pain. 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 Recently was in the hospital for [id number] systolic and diastolic CHF. Did fine with diuresis and discharged on Lasix 40 mg daily. The patient presents with abdominal pain . Patient says yesterday in the afternoon he noticed abdominal pain. He thought it will go away after eating dinner, but it did not go away. It was 7/10 severity in the upper abdomen, no radiation. No nausea, vomiting. Somewhat constipated. He had two hard stools yesterday and they were normal. No blood in the stool or black stools. Normal bladder movements. No hematuria. He is taking his Lasix regularly and there is no swelling in the legs currently. Ambulating okay. Denies any chest pain. No shortness of breath, no cough, no headache. Vision is not that great. Hard of hearing. No runny nose, no sore throat. He has some coughing that he attributes to his allergies. No fever, no chills. Currently resting comfortably and hemodynamically stable. ALLERGIES: HOUSE DUST. PAST MEDICAL HISTORY: As mentioned above. PAST SURGICAL HISTORY: Colonoscopies, EGD with biopsy, exploratory laparotomy and sigmoid colon resection with Harmoyn's procedure and status post closure with colostomy, laser procedure for glaucoma, carpal tunnel surgery of right hand, appendectomy, tonsillectomy, sinus surgery. MEDICATIONS: The patient is currently on Lasix 40 mg p.o. daily, Abilify 5 mg p.o. daily, Protonix 40 mg p.o. b.i.d., albuterol 2 puffs every 4 hours p.r.n., allopurinol 100 mg p.o. daily, erythromycin 2% patch applied to face daily for rosacea, Lexapro 20 mg p.o. daily, Namenda 10 mg p.o. b.i.d., Toprol-XL 25 mg p.o. daily, Flomax 0.4 mg daily, Flonase 1 spray into nostril daily, meclizine 25 mg p.o. t.i.d. p.r.n., Eliquis 2.5 mg p.o. b.i.d., melatonin 5 mg p.o. at bedtime. FAMILY HISTORY: Significant for daughter has allergies, mother had colon cancer, father had strokes. SOCIAL HISTORY: Former smoker, smoked an average of 0.75 pack a day for 20 years, quit in 1979. No alcohol use, no drug use. REVIEW OF SYSTEMS: As per HPI. Rest of the review of systems are negative. PHYSICAL EXAMINATION: GENERAL: The patient is obese, not in acute distress. VITAL SIGNS: Temperature 36.7, pulse 72, respiratory rate 14, blood pressure 103/62, oxygen 94% on room air. HEENT: Pupils equal, round, and reactive to light. Oral mucosa moist. NECK: No JVD, no neck masses, no carotid bruits. CARDIOVASCULAR: S1, S2 heard, regular rate and rhythm, no murmur, no gallop. RESPIRATORY SYSTEM: Normal AP diameter. No accessory muscle use. No wheezing, no crackles. ABDOMEN: Soft, bowel sounds present. Mild epigastric abdominal discomfort. No guarding, no rigidity. No distention. CENTRAL NERVOUS SYSTEM: Cranial nerves II-XII grossly intact. Nonfocal. EXTREMITIES: No edema, no erythema. LABORATORY DATA: WBC 15.3, hemoglobin 17.2, hematocrit 49.3, platelets 234. Sodium 139, potassium 3.5, chloride 102, bicarbonate 27, BUN 40, creatinine 1.4, serum glucose 129, calcium 8.8, total bilirubin 1.1, AST 30, ALT 36, alkaline phosphatase 106, lipase 1531. IMAGING DATA: Chest x-ray, no acute findings. CT of abdomen and pelvis preliminary report shows suggestion of slight peripancreatic fat stranding involving the tail of the pancreas consistent with mild acute pancreatitis, moderate constipation. EKG: Atrial fibrillation with PVCs at a rate of 77, left axis deviation. ASSESSMENT AND PLAN: This is a 79-year-old male who presents with abdominal pain and found to be having acute pancreatitis. 1. Acute pancreatitis, etiology unclear. We will also get a gallbladder ultrasound. We will check for triglycerides. The new medication, Lasix, was added recently which can cause pancreatitis, which is held for now and because of congestive heart failure, we will place him on IV normal saline at 100 mL per hour. Recheck lipase in the a.m. Keep him n.p.o., IV morphine p.r.n., IV Zofran p.r.n. and consult GI for further recommendations. 2. Chronic systolic and diastolic congestive heart failure. Echo done recently on 05/12/2020 shows EF of 40% to 45%, mild aortic regurgitation, diffuse left ventricular hypokinesis. Follows with cardiology. Lasix was held for above reasons. Getting fluids. We will monitor for volume overload. Will continue Toprol-XL. If any concern, will get cardiology consult. 3. Obstructive sleep apnea, on CPAP at bedtime. 4. History of generalized anxiety disorder and major depression. Continue his home Abilify and Lexapro. 5. Benign prostatic hypertrophy, continue his Flomax. 6. Chronic atrial fibrillation, rate controlled with Toprol-XL and recently Coumadin changed to Eliquis. 7. Deep venous thrombosis prophylaxis, on Eliquis. 8. Disposition: Admit to [facility] as the patient has history of congestive heart failure and getting fluids. PT/OT prior to discharge. Social service to help with discharge planning. Code status, full code as per my discussion with the patient. JEANNED
[2020-05-17 07:18] LABS: Troponin I 0.064 ng/ml (0-0.045)
--- NOTE | 2020-05-17 07:50 | XRay Report ---
SINGLE VIEW CHEST CLINICAL HISTORY: Right-sided chest pain. FINDINGS: An AP, portable, upright chest radiograph is compared to study dated 05/11/2020. The examinat ion is degraded by portable technique and patient rotation. The heart is mildly enlarged. Pulmonary vascular congestion has improved from previous. Airspace opacities are present at both lung bases, le ft greater than right. No large pleural effusion is identified. No pneumothorax is seen. The skeletal structures are osteopenic. The bony thorax is grossly intact. IMPRESSION: 1. Cardiomegaly. Pulmonary vascular congestion has improved from 05/11/2020. 2. There are bibasilar airspace opacities, left greater than right. This could represent atelectasis versus an infectious/inflammatory pneumonitis. Clinical correlation will be required. ACT 112: Negative or not required by law. Electronically signed by: Tommy Kern M.D. 05/17/2020 7:49 AM
--- NOTE | 2020-05-17 08:14 | CT Scan Report ---
CT SCAN OF THE ABDOMEN AND PELVIS WITH IV CONTRAST CLINICAL HISTORY: Right lower quadrant abdominal pain. COMPARISON STUDY: Abdominal CT dated 08/08/2014. TECHNIQUE: Following the IV administration of 93 cc of Optiray 320, CT scan of the abdomen and pelvi s is performed from the lung bases to the proximal femora. Images are reviewed in the axial, sagittal , and coronal planes. IV contrast was administered without complication. A dose lowering technique wa s utilized adhering to the principles of ALARA. CT DOSE: 1444.96 mGy.cm FINDINGS: Lung bases: The heart is enlarged and without pericardial effusion. There are coronary artery calcifi cations. A small hiatal hernia is noted. The lung bases are clear noting bibasilar scarring/atelectas is. Liver: The contrast-enhanced liver is normal in size, contour, and attenuation. There is no intrahepa tic biliary ductal dilatation. The hepatic veins and portal veins are patent. A 2.5 cm cyst is noted in the left lobe Gallbladder: Unremarkable. Spleen: Normal in size and attenuation. Pancreas: There is moderate atrophy of the pancreas. There is inflammatory stranding and trace fluid identified around the distal body and tail consistent with acute pancreatitis. The gland enhances beth ogeneously. No organized peripancreatic fluid collection is identified. The splenic vein is patent. Adrenal glands: Unremarkable. Kidneys: The contrast enhanced kidneys demonstrate cortical atrophy and are without hydronephrosis. T he kidneys enhance symmetrically. A 3.5 cm cyst is noted in the interpolar right kidney. Abdominal vasculature: The abdominal aorta is normal in course and caliber noting moderate atheroscle rotic calcification. Bowel: There is postoperative change from sigmoid colon resection with colocolonic anastomosis. No dick wel obstruction is seen. An umbilical hernia contains a nonobstructed segment of small bowel. There a re scattered diverticula noted in the remaining colon without CT evidence of acute diverticulitis. Fe josé miguel retention is seen in the right colon. The appendix is not identified and reported surgically abs ent. Peritoneum: There is no intraperitoneal free air or abdominal ascites. There is a bowel containing um bilical hernia. Lymphadenopathy: None. Pelvic viscera: The prostate gland is enlarged and heterogeneous measuring 6 cm in transverse diamete r. There is median lobe hypertrophy. The bladder wall is mildly thickened and trabeculated indicating chronic outlet obstruction. Skeletal structures: The skeletal structures are osteopenic. Moderate lumbosacral spondylosis and mil d scoliosis is observed. No lytic or blastic lesions are seen. There are healed left-sided rib fractu res. IMPRESSION: 1. Findings are consistent with acute pancreatitis as above. 2. An umbilical hernia contains a nonobstructed segment of small bowel. 3. Cardiomegaly. 4. Additional findings as above. ACT 112: Negative or not required by law. Electronically signed by: Tommy Kern M.D. 05/17/2020 8:12 AM
--- NOTE | 2020-05-17 08:22 | Gastrointestinal Consultation ---
Date of Consultation May 17, 2020 History of Present Illness Attending Physician: Annie De Paz DO Allergies Allergy/AdvReac Type Severity Reaction Status Date / Time house dust AdvReac Mild Congested Verified 05/17/20 01:47 Home Medications Home Medications Medication Instructions Recorded Confirmed Type albuterol sulfate [ProAir HFA] 1 puff INHALATION Q4H PRN 11/10/18 05/17/20 History allopurinol [Zyloprim] 100 mg PO QAM 11/10/18 05/17/20 History melatonin 5 mg PO HS 11/10/18 05/17/20 History metoprolol succinate [Toprol XL] 25 mg PO QAM 11/10/18 05/17/20 History pantoprazole [Protonix] 20 mg PO QAM 11/10/18 05/17/20 History tamsulosin [Flomax] 0.4 mg PO HS 11/10/18 05/17/20 History erythromycin with ethanol [Mckinley 1 applic TOPICAL DAILY PRN 04/10/20 05/17/20 History Pads] ivermectin 1 % TOPICAL DAILY PRN 04/10/20 05/17/20 History memantine 10 mg PO BID 04/10/20 05/17/20 History vardenafil 20 mg PO DAILY PRN MDD 20 mg 04/10/20 05/17/20 History fluticasone propionate 0 spray INTRANASAL BID 05/11/20 05/17/20 History meclizine 25 mg PO UD PRN 05/11/20 05/17/20 History aripiprazole [Abilify] 5 mg PO QAM 30 Days #30 tab 05/13/20 05/17/20 Rx escitalopram oxalate 20 mg PO QAM #30 tab 05/13/20 05/17/20 Rx furosemide [Lasix] 40 mg PO DAILY #30 tab 05/13/20 05/17/20 Rx apixaban [Eliquis] 2.5 mg PO BID 05/17/20 05/17/20 History Patient History Medical History Acne Anxiety Asthma STABLE Atrial fibrillation ON WARFARIN BPH (benign prostatic hyperplasia) Cognitive decline Dehydration Depression Diverticular disease DIVERTICULITIS S/P PERFORATION/COLON RESECTION (2005) GERD (gastroesophageal reflux disease) Gout Hearing deficit BILATERAL AIDES Hyperlipidemia Hypertension IBS (irritable bowel syndrome) LBBB (left bundle branch block) CHRONIC Obesity Osteoarthritis Sciatica Sleep apnea CPAP Vertigo Surgical History History of appendectomy History of bowel resection DIVERTICULITIS S/P PERFORATION/COLON RESECTION (2005) History of colonoscopy History of colostomy SUBSEQUENT REVERSAL History of colostomy reversal History of endoscopic sinus surgery History of esophagogastroduodenoscopy (EGD) History of tonsillectomy Family History Mother Family hx of colon cancer Family history of diabetes mellitus Social History Smoking Status: Former smoker Cigarettes Per Day: 15; Second Hand Exposure: No; Hx Alcohol Use: No Hx Substance Use: No Preferred Language: Occitan Communication Ability: Effective Gift Shop Manager Required: No Beliefs That Will Affect Care: None Current Living Situation: Spouse Feels Safe at Home: Yes Results & Data ([facility]) Vital Signs (Past 12 Hours) Vital Signs Temp Pulse Pulse Resp BP BP Pulse Ox 05/17/20 07:22 78 05/17/20 07:10 36.5 C 75 16 108/72 96 05/17/20 05:53 36.7 C 80 18 120/69 97 05/17/20 05:00 77 18 123/87 97 05/17/20 04:37 74 17 108/76 97 05/17/20 04:30 73 14 108/76 93 05/17/20 04:00 74 17 113/72 95 05/17/20 03:30 75 15 100/71 93 05/17/20 03:00 76 17 113/75 92 05/17/20 02:30 72 14 103/62 92 05/17/20 02:04 73 23 111/66 93 05/17/20 01:24 36.7 C 83 20 105/78 92 05/17/20 01:10 78 22 105/78 94
--- NOTE | 2020-05-17 08:54 | Ultrasound Report ---
ULTRASOUND RIGHT UPPER QUADRANT ABDOMEN CLINICAL HISTORY: Pancreatitis. COMPARISON STUDY: Abdominal CT dated 05/17/2020. TECHNIQUE: Real-time, grayscale, and color flow sonography of the right upper quadrant of the abdomen was performed. Images are reviewed in the transverse and longitudinal planes. FINDINGS: Liver: The liver is normal in size and echotexture. There is no intrahepatic biliary ductal dilatatio n. The main portal vein is patent. A 2.7 cm cyst is noted in the left lobe. Gallbladder: The gallbladder is normal in appearance. No gallstones are identified. There is no gallb ladder wall thickening or pericholecystic fluid. A sonographic Mcgee's sign is reportedly absent. Th e common bile duct measures up to 0.5 cm in diameter. Pancreas: Nonvisualized due to overlying bowel gas. Right kidney: Survey images of the right kidney demonstrate mild cortical atrophy. Echotexture is nor mal. There is no hydronephrosis. A 3.4 cm cyst is noted in the interpolar region. Ascites: None. IMPRESSION: 1. No acute sonographic abnormality is identified in the right upper quadrant. No gallstones are seen . 2. The pancreas was not visualized due to overlying bowel gas. ACT 112: Negative or not required by law. Electronically signed by: Tommy Kern M.D. 05/17/2020 8:53 AM
[2020-05-17] MEDS ORDERED: PANTOprazole 40 MG TAB PO SCH (09:00)
[2020-05-17] MEDS: MEMANTINE HCL 10 MG TAB PO SCH ×2 (09:27→20:52)
[2020-05-17] MEDS: FLUTICASONE PROPIONATE NA SPR 16 GM BTL SCH ×2 (09:27→20:50)
[2020-05-17] MEDS: APIXABAN 2.5 MG TAB PO SCH ×2 (09:27→20:52)
[2020-05-17] MEDS: METOPROLOL SUCC 25MG EXT REL TAB PO SCH (09:27)
[2020-05-17] MEDS: ARIPiprazole 5 MG TAB PO SCH (09:28)
[2020-05-17] MEDS: allopurinoL 100 MG TAB PO SCH (09:28)
[2020-05-17] MEDS: PANTOprazole 40 MG TAB PO SCH (09:28)
[2020-05-17] MEDS: ESCITALOPRAM OXALATE 20 MG TAB PO SCH (09:28)
[2020-05-17 09:37] LABS: Appearance Urine Clear (Clear); Bilirubin Urine Negative (Negative); Blood Urine Negative (Negative); Color Urine Yellow; Glucose Urine UA Negative (Negative); Ketones Urine Negative (Negative); Leukocyte Esterase Urine Negative (Negative); Nitrite Urine Negative (Negative); Protein Urine Negative (Negative); Specific Gravity Urine 1.042 (1.000-1.030); Urobilinogen Urine Negative (Negative); pH Urine 5.5 (4.5-7.5)
--- NOTE | 2020-05-17 11:30 | Gastrointestinal Consultation ---
Date of Consultation May 17, 2020 Assessment & Plan (1) Pancreatitis: 79-year-old male admitted with mild acute pancreatitis, etiology unclear. Abd is soft; pt resting comfortably. Discussed differential diagnosis with patient, including gallstones, EtOH (however he is not a drinker), hypertriglyceridemia, AIH, pancreas divisum, pancreatic mass, medications. - MRCP today to further evaluate anatomy of the pancreas - Trend lipase, LFTs - Will check lipid profile - Continue n.p.o. - IVF, as permissible with underlying CHF - Analgesia PRN - Antiemetics PRN Thank you for allowing us to participate in the care of this patient. Please call with any acute changes, questions or concerns. Please see addendum below with additional recommendation from my supervising physician. Supervising Physician Co-Signing Physician Notes I performed a history and physical examination of the patient today, including specifically on physical exam - soft abdomen. I have discussed the patient's management with the advanced practitioner. Please refer to the nurse practitioner's note for the documented findings and plan of care. Mild acute pancreatitis, unclear etiology. MRCP. EUS as OP. Clears today. History of Present Illness Reason for Consultation: pancreatitis Attending Physician: Annie De Paz, History of Present Illness Pt is a 79-year-old male with PMHx a-fib on Eliquis, HLD, CKD III, MYRON on CPAP, depression/anxiety, CHF, Jha's esophagus, and others below admitted yesterday after experiencing generalized abdominal pain, radiating into the epigastrium. On arrival to the ER, labs notable for lipase of 1500, but normal LFTs, T bili of 1.1, creatinine at baseline, elevated troponin, WBC 15 K, Hgb 17. CTAP with moderate atrophy of the pancreas, with inflammatory stranding and trace fluid around the distal body and tail consistent with acute pancreatitis, no organized fluid collection is seen, gallbladder is unremarkable. CXR with cardiomegaly, bibasilar airspace opacities. Abdominal ultrasound today with normal-appearing gallbladder, no gallstones, CBD 5 mm, pancreas was not visualized. Today he is feeling somewhat improved, pain tends to wax and wane, is more in the epigastrium, and described as an ache. No radiation to the back. Denies nausea, vomiting, change in BMs, jaundice, fevers or chills, dark urine or chaidez stools, melena or hematochezia, weight loss, change in appetite, chest pain or d yspnea, dysuria, leg edema. No family history of GI malignancy. Quit smoking when he was younger. No ETOH. No recent lipid profile. Most recent EGD/colonoscopy at the end of March with a short segment Jha's with low-grade dysplasia. He is on twice daily PPI, with repeat EGD scheduled for June. He is status post sigmoid colonic resection, Harmony procedure by Dr. Baez in 2011. Recent colonoscopy with functional anastomosis with healthy mucosa, and descending tics, otherwise normal. No repeat due to age. Allergies Allergy/AdvReac Type Severity Reaction Status Date / Time house dust AdvReac Mild Congested Verified 05/17/20 01:47 Home Medications Home Medications Medication Instructions Recorded Confirmed Type albuterol sulfate [ProAir HFA] 1 puff INHALATION Q4H PRN 11/10/18 05/17/20 History allopurinol [Zyloprim] 100 mg PO QAM 11/10/18 05/17/20 History melatonin 5 mg PO HS 11/10/18 05/17/20 History metoprolol succinate [Toprol XL] 25 mg PO QAM 11/10/18 05/17/20 History pantoprazole [Protonix] 20 mg PO QAM 11/10/18 05/17/20 History tamsulosin [Flomax] 0.4 mg PO HS 11/10/18 05/17/20 History erythromycin with ethanol [Mckinley 1 applic TOPICAL DAILY PRN 04/10/20 05/17/20 History Pads] ivermectin 1 % TOPICAL DAILY PRN 04/10/20 05/17/20 History memantine 10 mg PO BID 04/10/20 05/17/20 History vardenafil 20 mg PO DAILY PRN MDD 20 mg 04/10/20 05/17/20 History fluticasone propionate 0 spray INTRANASAL BID 05/11/20 05/17/20 History meclizine 25 mg PO UD PRN 05/11/20 05/17/20 History aripiprazole [Abilify] 5 mg PO QAM 30 Days #30 tab 05/13/20 05/17/20 Rx escitalopram oxalate 20 mg PO QAM #30 tab 05/13/20 05/17/20 Rx furosemide [Lasix] 40 mg PO DAILY #30 tab 05/13/20 05/17/20 Rx apixaban [Eliquis] 2.5 mg PO BID 05/17/20 05/17/20 History Patient History Medical History (Updated 05/17/20 @ 12:15 by Annie De Paz DO) Acne Anxiety Asthma STABLE Atrial fibrillation ON WARFARIN BPH (benign prostatic hyperplasia) Cognitive decline Dehydration Depression Diverticular disease DIVERTICULITIS S/P PERFORATION/COLON RESECTION (2005) GERD (gastroesophageal reflux disease) Gout Hearing deficit BILATERAL AIDES Hyperlipidemia Hypertension IBS (irritable bowel syndrome) LBBB (left bundle branch block) CHRONIC Obesity Osteoarthritis Sciatica Sleep apnea CPAP Vertigo Surgical History History of appendectomy History of bowel resection DIVERTICULITIS S/P PERFORATION/COLON RESECTION (2005) History of colonoscopy History of colostomy SUBSEQUENT REVERSAL History of colostomy reversal History of endoscopic sinus surgery History of esophagogastroduodenoscopy (EGD) History of tonsillectomy Family History Mother Family hx of colon cancer Family history of diabetes mellitus Social History Smoking Status: Former smoker Cigarettes Per Day: 15; Second Hand Exposure: No; Hx Alcohol Use: No Hx Substance Use: No Preferred Language: Kiswahili Communication Ability: Effective Slp Teacher Required: No Beliefs That Will Affect Care: None Current Living Situation: Spouse Feels Safe at Home: Yes Review of Systems Review of Systems: All systems reviewed & are unremarkable except as noted in HPI & below Constitutional: no fever, no chills, no fatigue and no weight loss Eyes: no eye pain and no worsening vision Ear, Nose, Mouth, Throat: no tinnitus, no dizziness, no nasal discharge and no epistaxis Respiratory: no cough, no dyspnea, no dyspnea on exertion and no wheezing Cardiovascular: no chest pain, no orthopnea, no palpitations and no edema Gastrointestinal: as per Subjective / HPI Musculoskeletal: no stiffness and no myalgia Neurologic: no localized weakness, no paralysis, no tremor(s) and no headache(s) Endocrine: no polydipsia and no polyuria Hematologic / Lymphatic: no easy bleeding and no night sweats Physical Exam Constitutional: WD/WN, vitals as above Eyes: + anicteric sclerae Respiratory: normal respiratory effort Cardiovascular: Rate/Rhythm: regular rate and regular rhythm Gastrointestinal (Abdomen): Inspection/Auscultation: abdomen normal to inspection; abdomen not distended Percussion/Palpation: abdomen soft mildly tender to the epigastrium, no rebound, guarding Skin: no rashes, warm and dry Psychiatric: A+Ox3, euthymic affect Results & Data ([facility]) Vital Signs (Past 12 Hours) Vital Signs Temp Pulse Pulse Resp BP BP Pulse Ox 05/17/20 11:27 36.6 C 73 16 123/65 99 05/17/20 07:22 78 05/17/20 07:10 36.5 C 75 16 108/72 96 05/17/20 05:53 36.7 C 80 18 120/69 97 05/17/20 05:00 77 18 123/87 97 05/17/20 04:37 74 17 108/76 97 05/17/20 04:30 73 14 108/76 93 05/17/20 04:00 74 17 113/72 95 05/17/20 03:30 75 15 100/71 93 05/17/20 03:00 76 17 113/75 92 05/17/20 02:30 72 14 103/62 92 05/17/20 02:04 73 23 111/66 93 05/17/20 01:24 36.7 C 83 20 105/78 92 05/17/20 01:10 78 22 105/78 94 Laboratory Results 05/17/20 05/17/20 05/17/20 Range/Units 09:24 06:23 00:55 WBC (4.8-10.8) K/uL RBC (4.7-6.1) M/uL Hgb (14.0-18.0) g/dL Hct (42-52) % MCV (80-100) fL MCH (25-34) pg MCHC (32-36) g/dL RDW Std Deviation (36.4-46.3) fL RDW Coeff of Henry (11.5-14.5) % Plt Count (130-400) K/uL MPV (7.4-10.4) fL Immature Gran % (Auto) % Neut % (Auto) % Lymph % (Auto) % [place] % (Auto) % Eos % (Auto) % Baso % (Auto) % Neut # (Auto) (1.4-6.5) K/uL Lymph # (Auto) (1.2-3.4) K/uL Highland # (Auto) (0.11-0.59) K/uL Eos # (Auto) (0-0.5) K/uL Baso # (Auto) (0-0.2) K/uL Immature Gran # (Auto) (0.00-0.02) K/uL Sodium 139 (136-145) mmol/L Potassium 3.5 (3.5-5.1) mmol/L Chloride 102 (98-107) mmol/L Carbon Dioxide 27 (21-32) mmol/L Anion Gap 10.0 (3-11) BUN 48 H (7-18) mg/dl Creatinine 1.40 (0.6-1.4) mg/dl Est Cr Clr Drug Dosing 55.0 ml/min Est GFR ( Amer) 55.8 Est GFR (Non-Af Amer) 48.1 BUN/Creatinine Ratio 34.3 H (10-20) Glucose 129 H (70-99) mg/dl Calcium 8.8 (8.5-10.1) mg/dl Total Bilirubin 1.1 H (0.2-1) mg/dl AST 30 (15-37) U/L ALT 36 (12-78) U/L Alkaline Phosphatase 106 (45-117) U/L Troponin I 0.064 H* (0-0.045) ng/ml Total Protein 7.6 (6.4-8.2) gm/dl Albumin 3.3 L (3.4-5.0) gm/dl Globulin 4.3 H (2.5-4.0) gm/dl Albumin/Globulin Ratio 0.8 L (0.9-2) Triglycerides 102 (0-150) mg/dl Cholesterol 128 (0-200) mg/dl LDL Cholesterol, Calc 68 mg/dl VLDL Cholesterol, Calc 20 mg/dl HDL Cholesterol 40 mg/dl Cholesterol/HDL Ratio 3 Lipase 1531 H (73-393) U/L Specimen Hemolysis Urine Color Yellow Urine Appearance Clear (Clear) Urine pH 5.5 (4.5-7.5) Ur Specific Pierron 1.042 H (1.000-1.030) Urine Protein Negative (Negative) Urine Glucose (UA) Negative (Negative) Urine Ketones Negative (Negative) Urine Blood Negative (Negative) Urine Nitrite Negative (Negative) Urine Bilirubin Negative (Negative) Urine Urobilinogen Negative (Negative) Ur Leukocyte Esterase Negative (Negative) 05/17/20 Range/Units 00:55 WBC 15.32 H (4.8-10.8) K/uL RBC 5.51 (4.7-6.1) M/uL Hgb 17.2 (14.0-18.0) g/dL Hct 49.3 (42-52) % MCV 89.5 (80-100) fL MCH 31.2 (25-34) pg MCHC 34.9 (32-36) g/dL RDW Std Deviation 49.8 H (36.4-46.3) fL RDW Coeff of Henry 15.1 H (11.5-14.5) % Plt Count 234 (130-400) K/uL MPV 10.8 H (7.4-10.4) fL Immature Gran % (Auto) 0.4 % Neut % (Auto) 73.0 % Lymph % (Auto) 12.9 % Highland % (Auto) 12.9 % Eos % (Auto) 0.7 % Baso % (Auto) 0.1 % Neut # (Auto) 11.20 H (1.4-6.5) K/uL Lymph # (Auto) 1.97 (1.2-3.4) K/uL Highland # (Auto) 1.97 H (0.11-0.59) K/uL Eos # (Auto) 0.10 (0-0.5) K/uL Baso # (Auto) 0.02 (0-0.2) K/uL Immature Gran # (Auto) 0.06 H (0.00-0.02) K/uL Sodium (136-145) mmol/L Potassium (3.5-5.1) mmol/L Chloride (98-107) mmol/L Carbon Dioxide (21-32) mmol/L Anion Gap (3-11) BUN (7-18) mg/dl Creatinine (0.6-1.4) mg/dl Est Cr Clr Drug Dosing ml/min Est GFR ( Amer) Est GFR (Non-Af Amer) BUN/Creatinine Ratio (10-20) Glucose (70-99) mg/dl Calcium (8.5-10.1) mg/dl Total Bilirubin (0.2-1) mg/dl AST (15-37) U/L ALT (12-78) U/L Alkaline Phosphatase (45-117) U/L Troponin I (0-0.045) ng/ml Total Protein (6.4-8.2) gm/dl Albumin (3.4-5.0) gm/dl Globulin (2.5-4.0) gm/dl Albumin/Globulin Ratio (0.9-2) Triglycerides (0-150) mg/dl Cholesterol (0-200) mg/dl LDL Cholesterol, Calc mg/dl VLDL Cholesterol, Calc mg/dl HDL Cholesterol mg/dl Cholesterol/HDL Ratio Lipase (73-393) U/L Specimen Hemolysis Urine Color Urine Appearance (Clear) Urine pH (4.5-7.5) Ur Specific Pierron (1.000-1.030) Urine Protein (Negative) Urine Glucose (UA) (Negative) Urine Ketones (Negative) Urine Blood (Negative) Urine Nitrite (Negative) Urine Bilirubin (Negative) Urine Urobilinogen (Negative) Ur Leukocyte Esterase (Negative) Diagnostic Findings CTAP Lung bases: The heart is enlarged and without pericardial effusion. There are coronary artery calcifications. A small hiatal hernia is noted. The lung bases are clear noting bibasilar scarring/atelectasis. Liver: The contrast-enhanced liver is normal in size, contour, and attenuation. There is no intrahepatic biliary ductal dilatation. The hepatic veins and portal veins are patent. A 2.5 cm cyst is noted in the left lobe Gallbladder: Unremarkable. Spleen: Normal in size and attenuation. Pancreas: There is moderate atrophy of the pancreas. There is inflammatory stranding and trace fluid identified around the distal body and tail consistent with acute pancreatitis. The gland enhances homogeneously. No organized peripancreatic fluid collection is identified. The splenic vein is patent. Adrenal glands: Unremarkable. Kidneys: The contrast enhanced kidneys demonstrate cortical atrophy and are without hydronephrosis. The kidneys enhance symmetrically. A 3.5 cm cyst is noted in the interpolar right kidney. Abdominal vasculature: The abdominal aorta is normal in course and caliber noting moderate atherosclerotic calcification. Bowel: There is postoperative change from sigmoid colon resection with colocolonic anastomosis. No bowel obstruction is seen. An umbilical hernia contains a nonobstructed segment of small bowel. There are scattered diverticula noted in the remaining colon without CT evidence of acute diverticulitis. Fecal retention is seen in the right colon. The appendix is not identified and reported surgically absent. Peritoneum: There is no intraperitoneal free air or abdominal ascites. There is a bowel containing umbilical hernia. Lymphadenopathy: None. Pelvic viscera: The prostate gland is enlarged and heterogeneous measuring 6 cm in transverse diameter. There is median lobe hypertrophy. The bladder wall is mildly thickened and trabeculated indicating chronic outlet obstruction. Skeletal structures: The skeletal structures are osteopenic. Moderate lumbosacral spondylosis and mild scoliosis is observed. No lytic or blastic lesions are seen. There are healed left-sided rib fractures. IMPRESSION: 1. Findings are consistent with acute pancreatitis as above. 2. An umbilical hernia contains a nonobstructed segment of small bowel. 3. Cardiomegaly. 4. Additional findings as above. CXR 1. Cardiomegaly. Pulmonary vascular congestion has improved from 05/11/2020. 2. There are bibasilar airspace opacities, left greater than right. This could represent atelectasis versus an infectious/inflammatory pneumonitis. Clinical correlation will be required. US ABD 1. No acute sonographic abnormality is identified in the right upper quadrant. No gallstones are seen. 2. The pancreas was not visualized due to overlying bowel gas. (1) Pancreatitis Acute pancreatitis complication: no infection or necrosis Chronicity: acute Pancreatitis type: other Qualified Code(s): K85.80 - Other acute pancreatitis without necrosis or infection
[2020-05-17] MEDS ORDERED: DICYCLOMINE HCL 10 MG CAP PO ONE (12:05)
--- NOTE | 2020-05-17 12:08 | Hospitalist Progress Note ---
Date of Service May 17, 2020 Assessment & Plan (1) Acute pancreatitis: recently hospitalized for heart failure within one week ago and started on Lasix at discharge as a new medication. This is most likely etiology, however, other medications have also been introduced in recent weeks. No cholelithiasis on MRCP from today. Pain is improved somewhat with bowel rest and supportive care. Per GI, OK to start slowly with clear liquid trial and advance diet very slowly. Cont IVF slowly for now until reliably tolerating PO, such as until tomorrow morning unless SOB occurs. Lasix on hold for now, but plan to continue this at discharge. Will plan outpatient EGD EUS as outpatient. (2) Chronic systolic heart failure: Recent hospitalization with discharge 4 days ago. Examines as euvolemic. (3) Demand ischemia: Some LV dysfunction present on recent echo within the last week. There is no clinical evidence of ACS and recent stress test in 2018 was negative. Noted troponin elevation that was also flat last admission not considered to be ischemic in nature. (4) Atrial fibrillation: chronic, cont apixaban started last hospitalization instead of coumadin, and rate control with metoprolol. (5) Stage III chronic kidney disease: chronic, around baseline. Cont to monitor and stay hydrated without overdoing it in settingof chronic CHF off lasix. (6) IBS (irritable bowel syndrome): PRN Bentyl vs Tylenol here. He typically manages any pain or bloating discomfort with food but was mostly NPO for the day. He refused Bentyl and was given morphien IV today with improvement in his abdominal pain. (7) Sleep apnea: CPAP qHS (8) Depression: Cont Abilify and Lexapro per home regimen. (9) Anxiety: as above. (10) DVT prophylaxis: Apixaban Full Code Dispo-to home when medically stable and tolerating PO reliably. DO [facility] Hospitalist Admission and Anticipated Discharge Date Admission Date: May 17, 2020 Subjective 79 yo M recently discharged from the hospital a few days ago after treatment for heart failure. New medication was Lasix. Developed acute lower abdominal pain worse in LLQ yesterday, compared to right, but also pointed to periumbilical area. Denies fevers, chills, or any issues with food. Has a h/o alternating IBS that is diet controlled. States bloating and gas was present and pain was radiating up into right anterior chest wall. No associated ACS symptoms. No vomiting, diarrhea or nausea. Also recently had new mood medications started during the hospitalization prior to the last one for heart failure that left him feeling mentally foggy. Review of Systems Review of Systems: All systems reviewed & are unremarkable except as noted in Subjective Physical Exam Physical Exam: CONSTITUTIONAL: WNWD, vitals as above, generally well- appearing EYES: normal conjunctivae, no scleral icterus ENT: MMM RESPIRATORY: crackles to the left base, otherwise zlear throughout lung franklin. Normal respiratory effort CARDIOVASCULAR: irregular rate and irregular rhythm, S1 and 2 heard without murmurs, gallops or rubs, no JVD, no peripheral edema GASTROINTESTINAL: soft, nontender, protuberant, no guarding, LLQ TTP, no epigastric pain, all other areas of abdomen are nontender and there is no distension. No CVA tenderness bilaterally. MUSCULOSKELETAL: strength 5/5 throughout, head is normocephalic and atraumatic, no gross focal deficits. SKIN: warm and dry NEUROLOGIC: No facial palsy, no dysarthria. CN 2-12 grossly intact, normal cognition, normal speech, no tremor. No gross focal deficits. PSYCHIATRIC: alert cooperative and oriented to person, place and time. Results & Data Results & Data ([facility]) Vital Signs (Past 12 Hours) Vital Signs Temp Pulse Pulse Resp BP BP Pulse Ox 05/17/20 11:27 36.6 C 73 16 123/65 99 05/17/20 07:22 78 05/17/20 07:10 36.5 C 75 16 108/72 96 05/17/20 05:53 36.7 C 80 18 120/69 97 05/17/20 05:00 77 18 123/87 97 05/17/20 04:37 74 17 108/76 97 05/17/20 04:30 73 14 108/76 93 05/17/20 04:00 74 17 113/72 95 05/17/20 03:30 75 15 100/71 93 05/17/20 03:00 76 17 113/75 92 05/17/20 02:30 72 14 103/62 92 05/17/20 02:04 73 23 111/66 93 05/17/20 01:24 36.7 C 83 20 105/78 92 09/09/20 01:10 78 22 105/78 94 Laboratory Results Short CBC 05/17/20 Range/Units 00:55 WBC 15.32 H (4.8-10.8) K/uL Hgb 17.2 (14.0-18.0) g/dL Hct 49.3 (42-52) % Plt Count 234 (130-400) K/uL BMP 05/17/20 00:55 Sodium 139 Potassium 3.5 Chloride 102 Carbon Dioxide 27 BUN 48 H Creatinine 1.40 Glucose 129 H Calcium 8.8 Cardiac Enzymes 05/17/20 Range/Units 06:23 Troponin I 0.064 H* (0-0.045) ng/ml Liver Function 05/17/20 Range/Units 00:55 Total Bilirubin 1.1 H (0.2-1) mg/dl AST 30 (15-37) U/L ALT 36 (12-78) U/L Alkaline Phosphatase 106 (45-117) U/L Albumin 3.3 L (3.4-5.0) gm/dl Urine 05/17/20 Range/Units 09:24 Urine Color Yellow Urine Appearance Clear (Clear) Urine pH 5.5 (4.5-7.5) Ur Specific [place] 1.042 H (1.000-1.030) Urine Protein Negative (Negative) Urine Glucose (UA) Negative (Negative) Diagnostic Findings CT SCAN OF THE ABDOMEN AND PELVIS WITH IV CONTRAST CLINICAL HISTORY: Right lower quadrant abdominal pain. COMPARISON STUDY: Abdominal CT dated 08/08/2014. TECHNIQUE: Following the IV administration of 93 cc of Optiray 320, CT scan of the abdomen and pelvis is performed from the lung bases to the proximal femora. Images are reviewed in the axial, sagittal, and coronal planes. IV contrast was administered without complication. A dose lowering technique was utilized adhering to the principles of ALARA. CT DOSE: 1444.96 mGy.cm FINDINGS: Lung bases: The heart is enlarged and without pericardial effusion. There are coronary artery calcifications. A small hiatal hernia is noted. The lung bases are clear noting bibasilar scarring/atelectasis. Liver: The contrast-enhanced liver is normal in size, contour, and attenuation. There is no intrahepatic biliary ductal dilatation. The hepatic veins and portal veins are patent. A 2.5 cm cyst is noted in the left lobe Gallbladder: Unremarkable. Spleen: Normal in size and attenuation. Pancreas: There is moderate atrophy of the pancreas. There is inflammatory stranding and trace fluid identified around the distal body and tail consistent with acute pancreatitis. The gland enhances homogeneously. No organized peripancreatic fluid collection is identified. The splenic vein is patent. Adrenal glands: Unremarkable. Kidneys: The contrast enhanced kidneys demonstrate cortical atrophy and are without hydronephrosis. The kidneys enhance symmetrically. A 3.5 cm cyst is noted in the interpolar right kidney. Abdominal vasculature: The abdominal aorta is normal in course and caliber noting moderate atherosclerotic calcification. Bowel: There is postoperative change from sigmoid colon resection with coloc olonic anastomosis. No bowel obstruction is seen. An umbilical hernia contains a nonobstructed segment of small bowel. There are scattered diverticula noted in the remaining colon without CT evidence of acute diverticulitis. Fecal retention is seen in the right colon. The appendix is not identified and reported surgically absent. Peritoneum: There is no intraperitoneal free air or abdominal ascites. There is a bowel containing umbilical hernia. Lymphadenopathy: None. Pelvic viscera: The prostate gland is enlarged and heterogeneous measuring 6 cm in transverse diameter. There is median lobe hypertrophy. The bladder wall is mildly thickened and trabeculated indicating chronic outlet obstruction. Skeletal structures: The skeletal structures are osteopenic. Moderate lumbosacral spondylosis and mild scoliosis is observed. No lytic or blastic lesions are seen. There are healed left-sided rib fractures. IMPRESSION: 1. Findings are consistent with acute pancreatitis as above. 2. An umbilical hernia contains a nonobstructed segment of small bowel. 3. Cardiomegaly. 4. Additional findings as above. Medications Administered Current Inpatient Medications Acetaminophen (Acetaminophen 325 Mg Tab) 650 mg PO Q4H PRN PRN Reason: Pain or Fever Stop: 06/16/20 06:03 Last Admin: 05/17/20 09:25 Dose: 650 mg Documented by: Albuterol (Albuterol Hfa 8 Gm Inhaler) 1 puffs INH Q4H PRN PRN Reason: SOB/WHEEZING Stop: 06/16/20 06:09 Allopurinol (Allopurinol 100 Mg Tab) 100 mg PO QAM [facility] Stop: 06/16/20 08:59 Last Admin: 05/17/20 09:28 Dose: 100 mg Documented by: Apixaban (Apixaban 2.5 Mg Tab) 2.5 mg PO BID [facility] Stop: 06/16/20 08:59 Last Admin: 05/17/20 09:27 Dose: 2.5 mg Documented by: Aripiprazole (A[facility]iprazole 5 Mg Tab) [facility] Stop: 06/16/20 08:59 Last Admin: 05/17/20 09:28 Dose: 5 mg Documented by: Escitalopram Oxalate (Escitalopram Oxalate 20 Mg Tab) [facility] [place] Stop: 06/16/20 08:59 Last Admin: 05/17/20 09:28 Dose: 20 mg Documented by: Fluticasone Propionate (Fluticasone Propionate Na Spr 16 Gm Btl) 0 sprays NA BID [facility] Stop: 06/16/20 08:59 Last Admin: 05/17/20 09:27 Dose: 3 sprays Documented by: Sodium Chloride (Nss 1000ml) 1,000 mls @ 100 mls/hr IV .Q10H [facility] Stop: 06/16/20 06:03 Last Admin: 05/17/20 06:20 Dose: 100 mls/hr Documented by: Meclizine HCl (Meclizine Hcl 25 Mg Tab) 25 mg PO TID PRN PRN Reason: Dizziness Stop: 06/16/20 06:15 Melatonin (Melatonin 3 Mg Tab) 3 mg PO HS [facility] Stop: 06/16/20 20:59 Memantine (Memantine Hcl 10 Mg Tab) 10 mg PO BID [facility] Stop: 06/16/20 08:59 Last Admin: 05/17/20 09:27 Dose: 10 mg Documented by: Metoprolol Succinate (Metoprolol Succ 25mg Ext Rel Tab) [address] [facility] Stop: 06/16/20 08:59 Last Admin: 05/17/20 09:27 Dose: 25 mg Documented by: Morphine Sulfate (Morphine Sulfate 4 Mg/Ml 1 Ml Carp\Vial) 3 mg IV Q4H PRN PRN Reason: Pain Stop: 05/31/20 06:03 Last Admin: 05/17/20 11:54 Dose: 3 mg Documented by: Nitroglycerin (Nitroglycerin Sl 0.4 Mg/Tab Tab) 0.4 mg SL UD PRN PRN Reason: Chest Pain Stop: 06/16/20 06:03 Ondansetron HCl (Ondansetron Inj 2 Mg/Ml 2 Ml Vial) 4 mg IV Q6H PRN PRN Reason: Nausea Stop: 06/16/20 06:03 Pantoprazole Sodium (Pantoprazole 40 Mg Tab) 40 mg PO QAM [facility] Stop: 06/16/20 08:59 Last Admin: 05/17/20 09:28 Dose: 40 mg Documented by: Polyethylene Glycol (Polyethylene (Miralax) 17 Gm Pack) 17 gm PO DAILY PRN PRN Reason: Constipation Stop: 06/16/20 06:03 Tamsulosin HCl (Tamsulosin Hcl 0.4 Mg Cap) 0.4 mg PO [facility] Stop: 06/16/20 20:59
[2020-05-17 12:42] LABS: Troponin I 0.062 ng/ml (0-0.045)
--- NOTE | 2020-05-17 13:08 | Magnetic Resonance Report ---
MR MRCP HISTORY: 79 years-old Male pancreatitis acute generalized abdominal pain with pancreatitis COMPARISON: Right upper quadrant abdominal ultrasound, CT abdomen and pelvis studies of same day TECHNIQUE: MRCP without the use of IV contrast was obtained according to institutional protocol. FINDINGS: Motion degraded exam. Cardiomegaly with trace pericardial effusion. No aortic aneurysm or definite ad enopathy. Mild nonspecific bilateral perinephric stranding. T2 hyperintense lesion suggestive of a cy st involves the lateral interpolar right kidney, 3.7 cm. No obstructive uropathy or bowel wall thicke edna. Soft tissues are unremarkable. Multilevel degenerative changes of the spine. The spleen, adrena l glands, liver and gallbladder are unremarkable. Probable cyst of the left hepatic lobe, 2.6 cm. No cholelithiasis or gallbladder wall thickening. Moderate pancreatic atrophy. There is mild interstitia l and peripancreatic edema/trace fluid which predominantly involves the pancreatic tail to lesser ext ent the body. No pancreatic ductal dilation or pancreatic mass identified. Evaluation of the vasculat ure is limited without the use of IV contrast. Common bile duct is normal, 4 mm. No intrahepatic duct al dilation or choledocholithiasis. No evidence of pancreatic divisum. IMPRESSION: 1. Acute pancreatitis. 2. There is no pancreatic or biliary ductal dilation. 3. Unremarkable gallbladder without cholelithiasis. ACT 112: Negative or not required by law. The above report was generated using voice recognition software. It may contain grammatical, syntax o r spelling errors. Electronically signed by: Balwinder Burgess M.D. 05/17/2020 1:07 PM
--- NOTE | 2020-05-17 19:15 | Electrocardiogram Report ---
Test Reason : Blood Pressure : / mmHG Vent. Rate : 077 BPM Atrial Rate : 063 BPM P-R Int : 000 ms QRS Dur : 140 ms QT Int : 406 ms P-R-T Axes : 000 -56 073 degrees QTc Int : 459 ms Atrial fibrillation with premature ventricular or aberrantly conducted complexes Left axis deviation Non-specific intra-ventricular conduction block Cannot rule out Anterior infarct , age undetermined Abnormal ECG When compared with ECG of 12-MAY-2020 06:45, Minimal criteria for Anterior infarct are now Present Confirmed by Con Caraballo ([id number]) on 05/17/2020 7:15:09 PM Referred By: REFERRED SELF Confirmed By:Jose Manuel Caraballo
[2020-05-17] MEDS: MELATONIN 3 MG TAB PO SCH (20:50)
[2020-05-17] MEDS: TAMSULOSIN HCL 0.4 MG CAP PO SCH (20:52)
[2020-05-18] MEDS: SODIUM CHLORIDE 0.9% 1000ML 1,000 ML IV SCH (02:54)
[2020-05-18 05:03] LABS: Basophils # (auto) 0.02 K/uL (0-0.2); Basophils % (auto) 0.2 %; Eosinophils # (auto) 0.35 K/uL (0-0.5); Hemoglobin 14.9 g/dL (14.0-18.0); Immature Granulocytes # (auto) 0.03 K/uL (0.00-0.02); Immature Granulocytes % (auto) 0.3 %; Lymphocytes # (auto) 1.87 K/uL (1.2-3.4); Lymphocytes % (auto) 16.2 %; Mean Corpuscular Hemoglobin 30.4 pg (25-34); Mean Corpuscular Hgb Conc 33.1 g/dL (32-36); Mean Corpuscular Volume 91.8 fL (80-100); Mean Platelet Volume 10.4 fL (7.4-10.4); Monocytes # (auto) 0.98 K/uL (0.11-0.59); Monocytes % (auto) 8.5 %; Neutrophils # (auto) 8.26 K/uL (1.4-6.5); Neutrophils % (auto) 71.8 %; Platelet Count 190 K/uL (130-400); RDW Coefficient of Variation 15.4 % (11.5-14.5); White Blood Count 11.51 K/uL (4.8-10.8)
[2020-05-18 06:02] LABS: BUN Creatinine Ratio 23.2 (10-20); Calcium 8.1 mg/dl (8.5-10.1); Creatinine Clr Calc Pharmacy 59.2 ml/min; Est GFR (Non-African American) 52.6; Magnesium 2.1 mg/dl (1.8-2.4); Potassium 3.3 mmol/L (3.5-5.1)
[2020-05-18] MEDS: ARIPiprazole 5 MG TAB PO SCH (07:59)
[2020-05-18] MEDS: allopurinoL 100 MG TAB PO SCH (07:59)
[2020-05-18] MEDS: MEMANTINE HCL 10 MG TAB PO SCH ×2 (07:59→20:58)
[2020-05-18] MEDS: ESCITALOPRAM OXALATE 20 MG TAB PO SCH (07:59)
[2020-05-18] MEDS: APIXABAN 2.5 MG TAB PO SCH ×2 (07:59→20:59)
[2020-05-18] MEDS: PANTOprazole 40 MG TAB PO SCH (08:03)
[2020-05-18] MEDS: METOPROLOL SUCC 25MG EXT REL TAB PO SCH (08:03)
[2020-05-18] MEDS: FLUTICASONE PROPIONATE NA SPR 16 GM BTL SCH ×3 (08:04→20:59)
--- NOTE | 2020-05-18 08:15 | Gastroenterology Progress Note ---
Date of Service May 18, 2020 Assessment & Plan (1) Acute pancreatitis: 79 y/o male admitted with mild acute pancreatitis of unknown etiology. MRCP with mild acute pancreatitis, no pancreatic masses or biliary stone. Lipase trending down, and pt clinically improving, tolerated clear liquids. Abd is soft, he's afebrile, HD stable. - Advance diet slowly as tolerated; trial of full liquids for lunch - EUS as an outpt in 4-6 weeks; our office will arrange - No ETOH, tobacco Please see addendum below with additional recommendation from my supervising physician. Admission and Anticipated Discharge Date Admission Date: May 17, 2020 Supervising Physician Co-Signing Physician Notes I performed a history and physical examination of the patient today, including specifically on physical exam - soft abdomen. I have discussed the patient's management with the advanced practitioner. Please refer to the nurse practitioner's note for the documented findings and plan of care. MRCP with no biliary disease. Advance diet as tolerated. EUS as OP, if negative then will need to change Lasix to a different diuretic as it can cause pancreatitis. Recall GI if needed. Subjective Pt seen and examined; no acute events overnight. MRCP with acute pancreatitis, no PD or or biliary ductal dilation, biliary stone, no pancreatic mass, pancreatic divisum. Lipase 1500->666, WBC 15->11. Triglycerides WNL. Pt tolerated clears. Abd pain minimal at this point. No BMs but is passing flat us; no n/v, chest pain, dyspnea, fever. Review of Systems Review of Systems: All systems reviewed & are unremarkable except as noted in HPI & below Physical Exam Constitutional: WD/WN, vitals as above Eyes: + anicteric sclerae Respiratory: normal respiratory effort Gastrointestinal (Abdomen): Inspection/Auscultation: abdomen normal to inspection; abdomen not distended Percussion/Palpation: abdomen soft Skin: no rashes, warm and dry Psychiatric: A+Ox3, euthymic affect Results & Data ([facility]) Vital Signs (Past 12 Hours) Vital Signs Temp Pulse Resp BP Pulse Ox 05/18/20 07:00 36.7 C 84 16 102/57 L 92 05/18/20 02:29 36.6 C 83 20 113/70 94 05/17/20 23:43 36.4 C L 89 20 110/68 91 Laboratory Results 05/18/20 05/18/2005/17/20 Range/Units 04:48 04:48 11:51 WBC 11.51 H (4.8-10.8) K/uL RBC 4.90 (4.7-6.1) M/uL Hgb 14.9 (14.0-18.0) g/dL Hct 45.0 (42-52) % MCV 91.8 (80-100) fL MCH 30.4 (25-34) pg MCHC 33.1 (32-36) g/dL RDW Std Deviation 52.0 H (36.4-46.3) fL RDW Coeff of [place] 15.4 H (11.5-14.5) % Plt Count 190 (130-400) K/uL MPV 10.4 (7.4-10.4) fL Immature Gran % (Auto) 0.3 % Neut % (Auto) 71.8 % Lymph % (Auto) 16.2 % [place] % (Auto) 8.5 % Eos % (Auto) 3.0 % Baso % (Auto) 0.2 % Neut # (Auto) 8.26 H (1.4-6.5) K/uL Lymph # (Auto) 1.87 (1.2-3.4) K/uL [place] # (Auto) 0.98 H (0.11-0.59) K/uL Eos # (Auto) 0.35 (0-0.5) K/uL Baso # (Auto) 0.02 (0-0.2) K/uL Immature Gran # (Auto) 0.03 H (0.00-0.02) K/uL Sodium 140 (136-145) mmol/L Potassium 3.3 L (3.5-5.1) mmol/L Chloride 106 (98-107) mmol/L Carbon Dioxide 29 (21-32) mmol/L Anion Gap 5.0 (3-11) BUN 30 H (7-18) mg/dl Creatinine 1.30 (0.6-1.4) mg/dl Est Cr Clr Drug Dosing 59.2 ml/min Est GFR ( Amer) 61.0 Est GFR (Non-Af Amer) 52.6 BUN/Creatinine Ratio 23.2 H (10-20) Glucose 113 H (70-99) mg/dl Calcium 8.1 L (8.5-10.1) mg/dl Magnesium 2.1 (1.8-2.4) mg/dl Troponin I 0.062 H* (0-0.045) ng/ml Triglycerides 105 (0-150) mg/dl Cholesterol 123 (0-200) mg/dl LDL Cholesterol, Calc 60 mg/dl VLDL Cholesterol, Calc 21 mg/dl HDL Cholesterol 42 mg/dl Cholesterol/HDL Ratio 3 Lipase 666 H (73-393) U/L Urine Color Urine Appearance (Clear) Urine pH (4.5-7.5) Ur Specific [place] (1.000-1.030) Urine Protein (Negative) Urine Glucose (UA) (Negative) Urine Ketones (Negative) Urine Blood (Negative) Urine Nitrite (Negative) Urine Bilirubin (Negative) Urine Urobilinogen (Negative) Ur Leukocyte Esterase (Negative) 05/17/20 Range/Units 09:24 WBC (4.8-10.8) K/uL RBC (4.7-6.1) M/uL Hgb (14.0-18.0) g/dL Hct (42-52) % MCV (80-100) fL MCH (25-34) pg MCHC (32-36) g/dL RDW Std Deviation (36.4-46.3) fL RDW Coeff of Henry (11.5-14.5) % Plt Count (130-400) K/uL MPV (7.4-10.4) fL Immature Gran % (Auto) % Neut % (Auto) % Lymph % (Auto) % [place] % (Auto) % Eos % (Auto) % Baso % (Auto) % Neut # (Auto) (1.4-6.5) K/uL Lymph # (Auto) (1.2-3.4) K/uL [place] # (Auto) (0.11-0.59) K/uL Eos # (Auto) (0-0.5) K/uL Baso # (Auto) (0-0.2) K/uL Immature Gran # (Auto) (0.00-0.02) K/uL Sodium (136-145) mmol/L Potassium (3.5-5.1) mmol/L Chloride (98-107) mmol/L Carbon Dioxide (21-32) mmol/L Anion Gap (3-11) BUN (7-18) mg/dl Creatinine (0.6-1.4) mg/dl Est Cr Clr Drug Dosing ml/min Est GFR ( Amer) Est GFR (Non-Af Amer) BUN/Creatinine Ratio (10-20) Glucose (70-99) mg/dl Calcium (8.5-10.1) mg/dl Magnesium (1.8-2.4) mg/dl Troponin I (0-0.045) ng/ml Triglycerides (0-150) mg/dl Cholesterol (0-200) mg/dl LDL Cholesterol, Calc mg/dl VLDL Cholesterol, Calc mg/dl HDL Cholesterol mg/dl Cholesterol/HDL Ratio Lipase (73-393) U/L Urine Color Yellow Urine Appearance Clear (Clear) Urine pH 5.5 (4.5-7.5) Ur Specific [place] 1.042 H (1.000-1.030) Urine Protein Negative (Negative) Urine Glucose (UA) Negative (Negative) Urine Ketones Negative (Negative) Urine Blood Negative (Negative) Urine Nitrite Negative (Negative) Urine Bilirubin Negative (Negative) Urine Urobilinogen Negative (Negative) Ur Leukocyte Esterase Negative (Negative) Diagnostic Findings MRCP Motion degraded exam. Cardiomegaly with trace pericardial effusion. No aortic aneurysm or definite adenopathy. Mild nonspecific bilateral perinephric stranding. T2 hyperintense lesion suggestive of a cyst involves the lateral interpolar right kidney, 3.7 cm. No obstructive uropathy or bowel wall thickening. Soft tissues are unremarkable. Multilevel degenerative changes of the spine. The spleen, adrenal glands, liver and gallbladder are unremarkable. Probable cyst of the left hepatic lobe, 2.6 cm. No cholelithiasis or gallbladder wall thickening. Moderate pancreatic atrophy. There is mild interstitial and peripancreatic edema/trace fluid which predominantly involves the pancreatic tail to lesser extent the body. No pancreatic ductal dilation or pancreatic mass identified. Evaluation of the vasculature is limited without the use of IV contrast. Common bile duct is normal, 4 mm. No intrahepatic ductal dilation or choledocholithiasis. No evidence of pancreatic divisum. IMPRESSION: 1. Acute pancreatitis. 2. There is no pancreatic or biliary ductal dilation. 3. Unremarkable gallbladder without cholelithiasis. (1) Acute pancreatitis Acute pancreatitis complication: no infection or necrosis Pancreatitis type: unspecified pancreatitis type Qualified Code(s): K85.90 - Acute pancreatitis without necrosis or infection, unspecified
[2020-05-18] MEDS ORDERED: POTASSIUM CHLORIDE 20 MEQ TABCR PO ONE (09:10)
--- NOTE | 2020-05-18 13:09 | Hospitalist Progress Note ---
Date of Service May 18, 2020 Assessment & Plan (1) Acute pancreatitis: recently hospitalized for heart failure within one week ago and started on Lasix at discharge as a new medication. This is most likely etiology of pancreatitis however, other medications have also been introduced in recent weeks. No cholelithiasis on MRCP on 05/17. Per GI, OK to start slowly with clear liquid trial and advance diet very slowly. IVF stopped as patient is already 3 L net positive since this admission. Lasix on hold for now, but plan to continue this at discharge. Will discuss with cardiology peripherally. GI plans for EUS as outpatient in 4-6 weeks. Would need to hold Eliquis 48 hours prior if biopsy is a possibility. (2) Chronic systolic heart failure: Recent hospitalization with discharge 4 days ago. Examines as euvolemic. Three Liters positive right now on fluid balance since admission. Will restart Lasix in am at half dose. (3) Demand ischemia: Some LV dysfunction present on recent echo within the last week. There is no clinical evidence of ACS and recent stress test in 2018 was negative. Noted troponin elevation that was also flat last admission not considered to be ischemic in nature. (4) Atrial fibrillation: chronic, cont apixaban started last hospitalization instead of coumadin, and rate control with metoprolol. (5) Stage III chronic kidney disease: chronic, around baseline. (6) IBS (irritable bowel syndrome): PRN Bentyl vs Tylenol here. He typically manages any pain or bloating discomfort with diet. Cont supportive care as needed. (7) Hypokalemia: replace and repeat in am. (8) Sleep apnea: CPAP qHS (9) Depression: Cont Abilify and Lexapro per home regimen. (10) Anxiety: as above. (11) DVT prophylaxis: Apixaban Full Code Dispo-to home when medically stable and tolerating PO reliably. Annie De Paz DO [facility] Hospitalist Admission and Anticipated Discharge Date Admission Date: May 17, 2020 Subjective No acute events overnight. Pt denies pain today. Lipase is 666 today. MRCP negative yesterday. Again pancreatitis may have been secondary to Lasix recently started after hospital discharge a few days ago. Denies SOB, any IBS symptoms or obvious pain, no epigastric pain, tolerating the clear liquid diet without issue overnight. Patient denies any fevers or chills. Denies any chest pain. Review of Systems Review of Systems: All systems reviewed & are unremarkable except as noted in Subjective Physical Exam Physical Exam: CONSTITUTIONAL: WNWD, vitals as above, generally well- appearing EYES: normal conjunctivae, no scleral icterus ENT: MMM RESPIRATORY: crackles to the left base, otherwise clear throughout lung franklin. Normal respiratory effort CARDIOVASCULAR: irregular rate and irregular rhythm, S1 and 2 heard without murmurs, gallops or rubs, no JVD, no peripheral edema GASTROINTESTINAL: soft, nontender, protuberant, no guarding, no epigastric pain, all other areas of abdomen are nontender and there is no distension. MUSCULOSKELETAL: strength 5/5 throughout, head is normocephalic and atraumatic, no gross focal deficits. SKIN: warm and dry NEUROLOGIC: No facial palsy, no dysarthria. CN 2-12 grossly intact, normal cognition, normal speech, no tremor. No gross focal deficits. PSYCHIATRIC: alert cooperative and oriented to person, place and time. Results & Data Results & Data ([facility]) Vital Signs (Past 12 Hours) Vital Signs Temp Pulse Resp BP BP Pulse Ox 05/18/20 11:37 36.9 C 79 20 105/70 98 05/18/20 07:00 36.7 C 84 16 102/57 L 92 05/18/20 02:29 36.6 C 83 20 113/70 94 Laboratory Results Short CBC 05/18/20 Range/Units 04:48 WBC 11.51 H (4.8-10.8) K/uL Hgb 14.9 (14.0-18.0) g/dL Hct 45.0 (42-52) % Plt Count 190 (130-400) K/uL BMP 05/18/20 04:48 Sodium 140 Potassium 3.3 L Chloride 106 Carbon Dioxide 29 BUN 30 H Creatinine 1.30 Glucose 113 H Calcium 8.1 L Medications Administered Current Inpatient Medications Acetaminophen (Acetaminophen 325 Mg Tab) 650 mg PO Q4H PRN PRN Reason: Pain or Fever Stop: 06/16/20 06:03 Last Admin: 05/17/20 09:25 Dose: 650 mg Documented by: Albuterol (Albuterol Hfa 8 Gm Inhaler) 1 puffs INH Q4H PRN PRN Reason: SOB/WHEEZING Stop: 06/16/20 06:09 Allopurinol (Allopurinol 100 Mg Tab) 100 mg PO QAM [facility] Stop: 06/16/20 08:59 Last Admin: 05/18/20 07:59 Dose: 100 mg Documented by: Apixaban (Apixaban 2.5 Mg Tab) 2.5 mg PO BID [facility] Stop: 06/16/20 08:59 Last Admin: 05/18/20 07:59 Dose: 2.5 mg Documented by: Aripiprazole (Aripiprazole 5 Mg Tab) 5 mg PO QAM [facility] Stop: 06/16/20 08:59 Last Admin: 05/18/20 07:59 Dose: 5 mg Documented by: Escitalopram Oxalate (Escitalopram Oxalate 20 Mg Tab) [facility] [place] Stop: 06/16/20 08:59 Last Admin: 05/18/20 07:59 Dose: 20 mg Documented by: Fluticasone Propionate (Fluticasone Propionate Na Spr 16 Gm Btl) 0 sprays NA BID [facility] Stop: 06/16/20 08:59 Last Admin: 05/18/20 09:16 Dose: 3 sprays Documented by: Meclizine HCl (Meclizine Hcl 25 Mg Tab) 25 mg PO TID PRN PRN Reason: Dizziness Stop: 06/16/20 06:15 Melatonin (Melatonin 3 Mg Tab) 3 mg PO [facility] Stop: 06/16/20 20:59 Last Admin: 05/17/20 20:50 Dose: 3 mg Documented by: Memantine (Memantine Hcl 10 Mg Tab) 10 mg PO BID [facility] Stop: 06/16/20 08:59 Last Admin: 05/18/20 07:59 Dose: 10 mg Documented by: Metoprolol Succinate (Metoprolol Succ 25mg Ext Rel Tab) 25 mg PO QAM [facility] Stop: 06/16/20 08:59 Last Admin: 05/18/20 08:03 Dose: 25 mg Documented by: Morphine Sulfate (Morphine Sulfate 4 Mg/Ml 1 Ml Carp\Vial) 3 mg IV Q4H PRN PRN Reason: Pain Stop: 05/31/20 06:03 Last Admin: 05/17/20 11:54 Dose: 3 mg Documented by: Nitroglycerin (Nitroglycerin Sl 0.4 Mg/Tab Tab) 0.4 mg SL UD PRN PRN Reason: Chest Pain Stop: 06/16/20 06:03 Ondansetron HCl (Ondansetron Inj 2 Mg/Ml 2 Ml Vial) 4 mg IV Q6H PRN PRN Reason: Nausea Stop: 06/16/20 06:03 Pantoprazole Sodium (Pantoprazole 40 Mg Tab) 40 mg PO [facility] Stop: 06/16/20 08:59 Last Admin: 05/18/20 08:03 Dose: 40 mg Documented by: Polyethylene Glycol (Polyethylene (Miralax) 17 Gm Pack) 17 gm PO DAILY PRN PRN Reason: Constipation Stop: 06/16/20 06:03 Tamsulosin HCl (Tamsulosin Hcl 0.4 Mg Cap) 0.4 mg PO HS [facility] Stop: 06/16/20 20:59 Last Admin: 05/17/20 20:52 Dose: 0.4 mg Documented by:
[2020-05-18] MEDS: MELATONIN 3 MG TAB PO SCH (20:58)
[2020-05-18] MEDS: TAMSULOSIN HCL 0.4 MG CAP PO SCH (20:59)
[2020-05-19 07:38] LABS: BUN Creatinine Ratio 21.3 (10-20); Calcium 8.8 mg/dl (8.5-10.1); Creatinine Clr Calc Pharmacy 64.8 ml/min; Est GFR (African American) 67.9; Est GFR (Non-African American) 58.6; Potassium 3.6 mmol/L (3.5-5.1)
[2020-05-19] MEDS: METOPROLOL SUCC 25MG EXT REL TAB PO SCH (09:18)
[2020-05-19] MEDS: ESCITALOPRAM OXALATE 20 MG TAB PO SCH (09:18)
[2020-05-19] MEDS: allopurinoL 100 MG TAB PO SCH (09:18)
[2020-05-19] MEDS: MEMANTINE HCL 10 MG TAB PO SCH (09:18)
[2020-05-19] MEDS: APIXABAN 2.5 MG TAB PO SCH (09:18)
[2020-05-19] MEDS: ARIPiprazole 5 MG TAB PO SCH (09:19)
[2020-05-19] MEDS: PANTOprazole 40 MG TAB PO SCH (09:19)
[2020-05-19] MEDS: FLUTICASONE PROPIONATE NA SPR 16 GM BTL SCH (09:19)
--- NOTE | 2020-05-19 13:25 | Discharge Summary ---
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 Recently was in the hospital for [id number] systolic and diastolic CHF. Did fine with diuresis and discharged on Lasix 40 mg daily. The patient presents with abdominal pain . Patient says yesterday in the afternoon he noticed abdominal pain. He thought it will go away after eating dinner, but it did not go away. It was 7/10 severity in the upper abdomen, no radiation. No nausea, vomiting. Somewhat constipated. He had two hard stools yesterday and they were normal. No blood in the stool or black stools. Normal bladder movements. No hematuria. He is taking his Lasix regularly and there is no swelling in the legs currently. Ambulating okay. Denies any chest pain. No shortness of breath, no cough, no headache. Vision is not that great. Hard of hearing. No runny nose, no sore throat. He has some coughing that he attributes to his allergies. No fever, no chills. Currently resting comfortably and hemodynamically stable. Admission Exam Per Admitting Provider PHYSICAL EXAMINATION: GENERAL: The patient is obese, not in acute distress. VITAL SIGNS: Temperature 36.7, pulse 72, respiratory rate 14, blood pressure 103/62, oxygen 94% on room air. HEENT: Pupils equal, round, and reactive to light. Oral mucosa moist. NECK: No JVD, no neck masses, no carotid bruits. CARDIOVASCULAR: S1, S2 heard, regular rate and rhythm, no murmur, no gallop. RESPIRATORY SYSTEM: Normal AP diameter. No accessory muscle use. No wheezing, no crackles. ABDOMEN: Soft, bowel sounds present. Mild epigastric abdominal discomfort. No guarding, no rigidity. No distention. CENTRAL NERVOUS SYSTEM: Cranial nerves II-XII grossly intact. Nonfocal. EXTREMITIES: No edema, no erythema. Principal Diagnosis Acute pancreatitis Discharge Exam CONSTITUTIONAL: WNWD, vitals as above, generally well-appearing EYES: normal conjunctivae, no scleral icterus ENT: MMM RESPIRATORY: CTAB, Normal respiratory effort CARDIOVASCULAR: irregular rate and irregular rhythm, S1 and 2 heard without murmurs, gallops or rubs, no JVD, no peripheral edema GASTROINTESTINAL: soft, nontender, protuberant, no guarding, no epigastric pain, all other areas of abdomen are nontender and there is no distension. MUSCULOSKELETAL: strength 5/5 throughout, head is normocephalic and atraumatic, no gross focal deficits. SKIN: warm and dry NEUROLOGIC: No facial palsy, no dysarthria. CN 2-12 grossly intact, normal cognition, normal speech, no tremor. No gross focal deficits. PSYCHIATRIC: alert cooperative and oriented to person, place and time. Discharge Data Allergies Allergy/AdvReac Type Severity Reaction Status Date / Time house dust AdvReac Mild Congested Verified 05/17/20 01:47 tomato AdvReac Verified 05/18/20 12:13 Consultations 05/17/20 04:40 ED Decision to Admit Stat 05/17/20 06:04 Consult Case Management - Discharge Planning Routine 05/17/20 08:00 Consult Gastroenterology Routine Ordered Studies MR MRCP HISTORY: 79 years-old Male pancreatitis acute generalized abdominal pain with pancreatitis COMPARISON: Right upper quadrant abdominal ultrasound, CT abdomen and pelvis studies of same day TECHNIQUE: MRCP without the use of IV contrast was obtained according to institutional protocol. FINDINGS: Motion degraded exam. Cardiomegaly with trace pericardial effusion. No aortic aneurysm or definite adenopathy. Mild nonspecific bilateral perinephric stranding. T2 hyperintense lesion suggestive of a cyst involves the lateral interpolar right kidney, 3.7 cm. No obstructive uropathy or bowel wall thickening. Soft tissues are unremarkable. Multilevel degenerative changes of the spine. The spleen, adrenal glands, liver and gallbladder are unremarkable. Probable cyst of the left hepatic lobe, 2.6 cm. No cholelithiasis or gallbladder wall thickening. Moderate pancreatic atrophy. There is mild interstitial and peripancreatic edema/trace fluid which predominantly involves the pancreatic tail to lesser extent the body. No pancreatic ductal dilation or pancreatic mass identified. Evaluation of the vasculature is limited without the use of IV contrast. Common bile duct is normal, 4 mm. No intrahepatic ductal dilation or choledocholithiasis. No evidence of pancreatic divisum. IMPRESSION: 1. Acute pancreatitis. 2. There is no pancreatic or biliary ductal dilation. 3. Unremarkable gallbladder without cholelithiasis. Electronically signed by: Balwinder Burgess M.D. 05/17/2020 1:07 PM ULTRASOUND RIGHT UPPER QUADRANT ABDOMEN CLINICAL HISTORY: Pancreatitis. COMPARISON STUDY: Abdominal CT dated 05/17/2020. TECHNIQUE: Real-time, grayscale, and color flow sonography of the right upper quadrant of the abdomen was performed. Images are reviewed in the transverse and longitudinal planes. FINDINGS: Liver: The liver is normal in size and echotexture. There is no intrahepatic biliary ductal dilatation. The main portal vein is patent. A 2.7 cm cyst is noted in the left lobe. Gallbladder: The gallbladder is normal in appearance. No gallstones are identified. There is no gallbladder wall thickening or pericholecystic fluid. A sonographic Mcgee's sign is reportedly absent. The common bile duct measures up to 0.5 cm in diameter. Pancreas: Nonvisualized due to overlying bowel gas. Right kidney: Survey images of the right kidney demonstrate mild cortical atrophy. Echotexture is normal. There is no hydronephrosis. A 3.4 cm cyst is noted in the interpolar region. Ascites: None. IMPRESSION: 1. No acute sonographic abnormality is identified in the right upper quadrant. No gallstones are seen. 2. The pancreas was not visualized due to overlying bowel gas. Electronically signed by: Tommy Kern M.D. 05/17/2020 8:53 AM - CT SCAN OF THE ABDOMEN AND PELVIS WITH IV CONTRAST CLINICAL HISTORY: Right lower quadrant abdominal pain. COMPARISON STUDY: Abdominal CT dated 08/08/2014. TECHNIQUE: Following the IV administration of 93 cc of Optiray 320, CT scan of the abdomen and pelvis is performed from the lung bases to the proximal femora. Images are reviewed in the axial, sagittal, and coronal planes. IV contrast was administered without complication. A dose lowering technique was utilized adhering to the principles of ALARA. CT DOSE: 1444.96 mGy.cm FINDINGS: Lung bases: The heart is enlarged and without pericardial effusion. There are coronary artery calcifications. A small hiatal hernia is noted. The lung bases are clear noting bibasilar scarring/atelectasis. Liver: The contrast-enhanced liver is normal in size, contour, and attenuation. There is no intrahepatic biliary ductal dilatation. The hepatic veins and portal veins are patent. A 2.5 cm cyst is noted in the left lobe Gallbladder: Unremarkable. Spleen: Normal in size and attenuation. Pancreas: There is moderate atrophy of the pancreas. There is inflammatory stranding and trace fluid identified around the distal body and tail consistent with acute pancreatitis. The gland enhances homogeneously. No organized peripancreatic fluid collection is identified. The splenic vein is patent. Adrenal glands: Unremarkable. Kidneys: The contrast enhanced kidneys demonstrate cortical atrophy and are without hydronephrosis. The kidneys enhance symmetrically. A 3.5 cm cyst is noted in the interpolar right kidney. Abdominal vasculature: The abdominal aorta is normal in course and caliber noting moderate atherosclerotic calcification. Bowel: There is postoperative change from sigmoid colon resection with colocolonic anastomosis. No bowel obstruction is seen. An umbilical hernia contains a nonobstructed segment of small bowel. There are scattered diverticula noted in the remaining colon without CT evidence of acute diverticulitis. Fecal retention is seen in the right colon. The appendix is not identified and reported surgically absent. Peritoneum: There is no intraperitoneal free air or abdominal ascites. There is a bowel containing umbilical hernia. Lymphadenopathy: None. Pelvic viscera: The prostate gland is enlarged and heterogeneous measuring 6 cm in transverse diameter. There is median lobe hypertrophy. The bladder wall is mildly thickened and trabeculated indicating chronic outlet obstruction. Skeletal structures: The skeletal structures are osteopenic. Moderate lumbosacral spondylosis and mild scoliosis is observed. No lytic or blastic lesions are seen. There are healed left-sided rib fractures. IMPRESSION: 1. Findings are consistent with acute pancreatitis as above. 2. An umbilical hernia contains a nonobstructed segment of small bowel. 3. Cardiomegaly. 4. Additional findings as above. Electronically signed by: Tommy Kern M.D. 05/17/2020 8:12 AM Hospital Course (1) Acute pancreatitis: recently hospitalized for heart failure within one week ago and started on Lasix at discharge as a new medication. This is most likely etiology of pancreatitis however, other medications have also been introduced in recent weeks. No cholelithiasis on MRCP on 05/17. Per GI, OK to start slowly with clear liquid trial and advance diet very slowly. He did well with the advancement to solid foods within 1.5 days. IVF resuscitation given cautiously throughout discharge while Lasix was held. Spoke with is screw down peripherally who was ok to decrease the daily Lasix by 50% at discharge. GI plans for EUS as outpatient in 4-6 weeks. Would need to hold Eliquis 48 hours prior if biopsy is a possibility. Of note, we did have a serious discussion regarding alcohol use which he vehemently denies, and I do not believe alcohol or other substance abuse is playing a role here. (2) Chronic systolic heart failure: Recent hospitalization with discharge 4 days ago. Examines as euvolemic. Three Liters positive right now on fluid balance since admission. Lasix restarted at 50% original dose. (3) Demand ischemia: Some LV dysfunction present on recent echo within the last week. There is no clinical evidence of ACS and recent stress test in 2018 was negative. Noted troponin elevation that was also flat last admission not considered to be ischemic in nature. (4) Atrial fibrillation: chronic, cont apixaban started last hospitalization instead of coumadin, and rate control with metoprolol. (5) Stage III chronic kidney disease: chronic, around baseline. (6) IBS (irritable bowel syndrome): PRN Bentyl vs Tylenol here. He typically manages any pain or bloating discomfort with diet. Cont supportive care as needed. (7) Hypokalemia: repleted (8) Sleep apnea: CPAP qHS (9) Depression: Cont Abilify and Lexapro per home regimen. He feels this is helping, and although serotonin products in the past have irritated his IBS, this is doing OK for now. (10) Anxiety: as above. At time of discharge he was mentating and ambulating at baseline and tolerating p.o. He was free of symptoms. He was hemodynamically stable and afebrile and oxygenating well on room air. Close primary care follow-up was recommended. He was discharged in stable condition. Total Time Total Time Spent Total Time Spent (In Minutes): 60 Total Time Includes: Examination of the Patient, Discharge Planning, Medication Reconciliation and Communication With Other Providers Discharge Plan Discharge Items Patient Disposition: Home - Self-Care Reason For Visit: ABDOMINAL PAIN Discharge Diagnosis: Acute pancreatitis Condition on Discharge: Good Activity: Resume your previous activity Non-emergency contact: Primary Care Provider Call non-emergency contact if: you have any medication questions, your symptoms worsen, your pain is not controlled, your pain is worsening, your pain is unusual for you, your pain is concerning for you and you have a fever Follow-up/Referrals: Eamon Felder DO [Primary Care Provider] - 05/22/20 8:20 am (Date & Time 05/22/2020 8:20 AM Provider Eamon Felder DO Department [facility] ) Diet: Low Fat and Low Sodium (2gm) Addtl Attending Provider Instructions: Please comply with all medications per discharge list below. Please ensure close follow-up with Dr. Jalloh at the time and date above to ensure you are doing well after going home from the hospital. Please contact [facility] gastroenterology regarding an outpatient EUS (endoscopic ultrasound) in 4 to 6 weeks time. You were seen by Dr. Ravi Mendoza while in the hospital. If you require to stop your anticoagulation for this, please stop your Eliquis 48 hours prior to procedure. He was seen to have bilateral airspace opacities left greater than right on a chest x-ray performed during admission. It is recommended that you have a follow-up chest x-ray in 4 to 6 weeks to ensure these are completely resolved. This can be ordered by your primary care doctor. It was a pleasure taking care of you! Please call if you have any questions or problems. You can reach a [facility] hospitalist on duty at [facility] 24 hours a day by calling [phone]. Take care of yourself. Annie De Paz DO [facility] Hospitalist Pending Studies at Discharge: No Stand-Alone Forms: My [facility] Medications and DC Order Prescriptions: New furosemide 20 mg tablet 20 mg PO DAILY Qty: 30 RF: 2 Continued meclizine 25 mg tablet 25 mg PO UD PRN (Reason: Dizziness) RF: 0 fluticasone propionate 50 mcg/actuation [place],Suspension 0 spray INTRANASAL BID RF: 0 escitalopram oxalate 20 mg tablet 20 mg PO QAM Qty: 30 RF: 4 aripiprazole [Abilify] 5 mg Tablet 5 mg PO QAM 30 Days Qty: 30 RF: 3 Eliquis 2.5 mg Tablet 2.5 mg PO BID RF: 0 allopurinol [Zyloprim] 100 mg Tablet 100 mg PO QAM RF: 0 tamsulosin [Flomax] 0.4 mg Capsule 0.4 mg PO HS RF: 0 pantoprazole [Protonix] 40 mg Tablet,Delayed Release (Dr/Ec) 20 mg PO QAM RF: 0 metoprolol succinate [Toprol XL] 25 mg Tablet Extended Release 24 Hr 25 mg PO QAM RF: 0 albuterol sulfate [ProAir HFA] 90 mcg/actuation Hfa Aerosol Inhaler 1 puff INHALATION Q4H PRN (Reason: SOB/WHEEZING) RF: 0 melatonin 5 mg Capsule 5 mg PO HS RF: 0 erythromycin with ethanol [Mckinley Pads] 2 % swab 1 applic TOPICAL DAILY PRN (Reason: rash) RF: 0 memantine 10 mg tablet 10 mg PO BID RF: 0 ivermectin 1 % topical DAILY PRN (Reason: Acne) RF: 0 vardenafil 20 mg PO DAILY MDD 20 mg PRN (Reason: Erectile Dysfunction) RF: 0 Discontinued furosemide [Lasix] 40 mg tablet 40 mg PO DAILY Qty: 30 RF: 3 Discharge Orders: Discharge Order (Routine); Ordered 05/19/20 Ordered By: Annie De Paz Admission Data Admit Date/Time: 05/17/20 05:14 Attending Provider: Annie De Paz Admit Provider: Rod Mccormick Primary Care Provider: Eamon Felder Other Providers: Rod Mccormick ; Dorina Gomez ; Yudith Rose ; Kristal Woody ; Lora Pozo ; Sly Walker ; Jerrod Hoff ; Umer Dueñas ; Selma Jade ; Shamir Lee ; Sundar Rothman ; Rosamaria Echols ; Isa Gutierrez ; Ginger Smith ; Dorothy Hyde ; Ravi Mendoza Other Interventions: Discharge Summary Assessment (RN) Last Done: 05/19/20 14:00
== END 2020-05-19 14:25 | disposition home or self-care (01) | DRG 439 ==
LOC: ED 01:08 → 2N 05:14

== ENCOUNTER 2023-04-07 18:47 | Observation (INO) ==
--- NOTE | 2023-04-07 19:33 | XRay Report ---
SINGLE VIEW CHEST CLINICAL HISTORY: Atypical chest pain. FINDINGS: An AP, portable, upright chest radiograph is compared to study dated 05/17/2020. The heart is enlarged. The pulmonary vasculature is noncongested. There is bibasilar scarring/atelectasis. No air space consolidation or large pleural effusion is identified. No pneumothorax is seen. The skeletal st ructures are osteopenic. The bony thorax is grossly intact. IMPRESSION: Cardiomegaly with no acute cardiopulmonary abnormality. ACT 112: Negative or not required by law. Electronically signed by: Tommy Kern M.D. 04/07/2023 7:31 PM
[2023-04-07 20:16] LABS: Basophils # (auto) 0.05 K/uL (0-0.2); Basophils % (auto) 0.6 %; Eosinophils # (auto) 0.16 K/uL (0-0.50); Hematocrit (blood only) 51.3 % (42.0-52.0); Hemoglobin 16.8 g/dl (14.0-18.0); Immature Granulocytes # (auto) 0.06 K/uL (0.01-0.20); Immature Granulocytes % (auto) 0.8 %; Lymphocytes # (auto) 1.44 K/uL (1.2-3.4); Mean Corpuscular Hemoglobin 30.6 pg (25.0-34.0); Mean Corpuscular Hgb Conc 32.7 g/dL (32.0-36.0); Mean Corpuscular Volume 93.4 fL (80.0-100.0); Mean Platelet Volume 10.3 fL (9.4-12.4); Monocytes # (auto) 0.81 K/uL (0.11-0.59); Monocytes % (auto) 10.1 %; Neutrophils # (auto) 5.47 K/uL (1.40-6.50); Neutrophils % (auto) 68.5 %; Platelet Count 173 K/uL (130-400); RDW Standard Deviation 54.6 fL (36.4-46.3); Red Blood Count 5.49 M/uL (4.70-6.10); White Blood Count 7.99 K/ul (4.8-10.8)
[2023-04-07 20:36] LABS: Albumin Globulin Ratio 1.1 (0.9-2); Albumin Level 3.9 gm/dl (3.4-5.0); BUN Creatinine Ratio 19.6 (10-20); Bilirubin,Total 0.9 mg/dl (0.2-1.0); Calcium 9.3 mg/dl (8.6-10.3); Creatinine Clr Calc Pharmacy 53.7 ml/min; Est GFR (African American) 55.6 ml/min; Est GFR (Non-African American) 47.9 ml/min; Globulin 3.4 gm/dl (2.5-4.0); Potassium 4.1 mmol/L (3.5-5.1); Total Protein 7.3 gm/dl (6.0-8.3)
[2023-04-07 20:42] LABS: Troponin I High Sensitivity 31.5 pg/ml (0-20)
[2023-04-07 20:48] LABS: INR 1.1 (0.9-1.1); Partial Thromboplastin Time 27.9 Seconds (21.0-31.0); Prothrombin Time 11.5 Seconds (9.0-12.0)
[2023-04-07] MEDS ORDERED: SODIUM CHLORIDE 0.9% 1000ML 500 ML IV ONE (21:14)
[2023-04-07] MEDS ORDERED: SODIUM CHLORIDE 0.9% 1000ML 250 ML IV ONE (21:21)
--- NOTE | 2023-04-07 21:21 | Emergency Department Note ---
History of Present Illness General Chief complaint: Fall Stated complaint: FALLS,DIZZY,UNBALANCED Time Seen by Provider: 04/07/23 21:01 Source: patient, family ( was at the bedside), RN notes reviewed and old records reviewed Mode of arrival: ambulatory Limitations: no limitations History of Present Illness This patient is an 82-year-old male who comes in after feeling dizzy and lightheaded and falling multiple times this week. History of this but is gotten worse over the last week. No injury or headache or head trauma he says when he stands up in the morning he feels off balance. He does not feel like it is a spinning and does not feel like it is a syncope. No blood or melena stool. Denies pain. He has been on anticoagulation chronically with Eliquis for A-fib. He has been feeling deconditioned since getting cellulitis a couple months ago. He says that is now improved. No focal numbness or weakness with exception of issues related left-sided sciatica which is chronic Home Medications Medication Instructions Recorded Confirmed Type albuterol sulfate 90 mcg/actuation 2 puff inhalation Q4H PRN cough or 11/10/18 04/07/23 History aerosol inhaler (ProAir HFA) wheezing allopurinol 100 mg tablet 200 mg PO QAM 11/10/18 04/07/23 History (Zyloprim) melatonin 5 mg capsule 5 mg PO HS 11/10/18 04/07/23 History metoprolol succinate 25 mg 25 mg PO QAM 11/10/18 04/07/23 History tablet,extended release 24 hr (Toprol XL) memantine 10 mg tablet (Namenda) 10 mg PO BID 04/10/20 04/07/23 History apixaban 2.5 mg tablet (Eliquis) 2.5 mg PO BID 05/17/20 04/07/23 History lorazepam 0.5 mg tablet 0.5 mg PO QID PRN Anxiety 07/06/20 04/07/23 History hyoscyamine sulfate 0.125 mg tablet 0.125 mg PO Q4 PRN Abdominal Pain 11/05/22 04/07/23 History tamsulosin 0.4 mg capsule 0.4 mg PO HS 11/05/22 04/07/23 History torsemide 10 mg tablet 10 mg PO DAILY 11/05/22 04/07/23 History vardenafil 20 mg tablet 20 mg PO DAILY PRN Erectile 11/05/22 04/07/23 History Dysfunction cyanocobalamin (vitamin B-12) 1,000 mcg sublingual DAILY 04/07/23 04/07/23 History 1,000 mcg sublingual tablet fluticasone propionate 50 1 spray intranasal QAM 04/07/23 04/07/23 History mcg/actuation nasal spray,suspension ipratropium bromide 42 mcg (0.06 2 spray intranasal TID PRN 04/07/23 04/07/23 History %) nasal spray allergies pantoprazole 40 mg tablet,delayed 40 mg PO DAILYBB 04/07/23 04/07/23 History release venlafaxine 150 mg 300 mg PO QAM 04/07/23 04/07/23 History capsule,extended release 24 hr Allergies Allergy/AdvReac Type Severity Reaction Status Date / Time house dust AdvReac Mild Congested Verified 02/27/23 11:24 ORRIS ROOT AdvReac Mild RUNNY NOSE Uncoded 02/27/23 11:24 Past Med/Surg History Medical History 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 Admitted to [facility] on May 11, 2020 with acute on chronic dyspnea, orthopnea, PND, associated chest pressure. Diagnosed with acute decompensated systolic heart failure. Resting echocardiography revealed mild to moderate reduction in left ventricular systolic function, EF 40 to 45%, down from 50 to 54% in 2019. Troponin was elevated, flat, consistent with CHF, volume overload though patient notably has risk factors for ischemic heart disease. He was treated with IV furosemide, 40 mg twice per day, di uresing well, with significant subjective improvement. Patient discharged on May 13, 2020 on furosemide 40 mg/day. Anxiety and depression Asthma STABLE Atrial fibrillation asymptomatic - follows with Dr Romero. 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 Dementia without behavioral disturbance Diverticular disease DIVERTICULITIS S/P PERFORATION/COLON RESECTION (2005) Dyslipidemia Essential tremor GERD (gastroesophageal reflux disease) Hearing deficit BILATERAL AIDES Hx of colonic polyp Hx of gout Hyperlipidemia Hypersomnolence disorder Hypertension IBS (irritable bowel syndrome) LBBB (left bundle branch block) CHRONIC Lumbar spondylosis with myelopathy Major depressive disorder On anticoagulant therapy MYRON on CPAP Osteoarthritis Pancreatitis Readmitted to [facility] May 17, 2020 to May 19, 2020 with acute pancreatitis. Furosemide decreased to 20 mg/day on discharge. Pernicious anemia Rosacea Sciatica Sleep apnea CPAP Stage 3b chronic kidney disease Vertigo Vitamin D deficiency Surgical History History of appendectomy History of arthroplasty of right knee History of bowel resection DIVERTICULITIS S/P PERFORATION/COLON RESECTION (2005) History of cataract surgery RT History of colonoscopy 2019 History of colostomy reversal History of endoscopic sinus surgery Right side-Dr. 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 Beliefs That Will Affect Care: None marital status: unknown marital status details: Engaged Current Living Situation: Significant Other Current Living Situation Comment: [facility] How many Children do You have: 2 other: Brother Matthieu is medical power of attorney at law, Feels Safe at Home: Yes Childhood Exposure to Second-Hand Smoke: No Diet: ideal protein and low salt Diet Comment: Low fat Assistive Devices: Denture - Upper, Denture - Lower, Glasses and Hearing Aid - Bilateral Review of Systems A total of 10 systems reviewed and were otherwise negative Physical Exam Vital Signs Vital Signs - 24 hr 04/07/23 18:58 04/07/23 20:55 04/07/23 20:55 Temperature 36.3 C L Temperature Source Temporal Artery Scan Pulse Rate - Lying Pulse Rate - Sitting Pulse Rate - Standing Pulse Rate 85 Pulse Rate [Apical] 72 Pulse Rate from SpO2 Sensor Pulse Rhythm [Apical] Regular Respiratory Rate 18 18 Respiratory Effort / Characteristics Non-Labored Spontaneous Respiratory Depth Normal Normal Respiratory Pattern Regular Blood Pressure - Lying Blood Pressure - Sitting Blood Pressure- Standing Blood Pressure 121/76 Blood Pressure [Right Arm] 122/77 Blood Pressure Mean 91 Blood Pressure Mean [Right Arm] 92 Blood Pressure Position [Right Arm] Lying Pulse Oximetry 93 97 97 Oxygen Delivery Method Room Air Room Air Room Air Sepsis Recent Fever Within 48 Hours No Sepsis New/Unexplained Change in Mental Status N/A Sepsis Action Taken by Nursing No Action Required 04/07/23 21:43 04/07/23 22:21 04/07/23 22:24 Temperature Temperature Source Pulse Rate - Lying 71 Pulse Rate - Sitting 71 Pulse Rate - Standing 75 Pulse Rate 66 Pulse Rate [Apical] 75 Pulse Rate from SpO2 Sensor Pulse Rhythm [Apical] Regular Respiratory Rate 18 Respiratory Effort / Characteristics Non-Labored Spontaneous Respiratory Depth Normal Respiratory Pattern Regular Blood Pressure - Lying 134/84 Blood Pressure - Sitting 129/78 Blood Pressure- Standing 114/79 Blood Pressure Blood Pressure [Right Arm] 114/79 Blood Pressure Mean Blood Pressure Mean [Right Arm] 90 Blood Pressure Position [Right Arm] Standing Pulse Oximetry 95 Oxygen Delivery Method Room Air Sepsis Recent Fever Within 48 Hours Sepsis New/Unexplained Change in Mental Status Sepsis Action Taken by Nursing 04/07/23 21:44 04/07/23 22:22 04/07/23 22:22 Temperature Temperature Source Pulse Rate - Lying Pulse Rate - Sitting Pulse Rate - Standing Pulse Rate 64 81 Pulse Rate [Apical] Pulse Rate from SpO2 Sensor 62 72 Pulse Rhythm [Apical] Respiratory Rate 19 26 H Respiratory Effort / Characteristics Respiratory Depth Respiratory Pattern Blood Pressure - Lying Blood Pressure - Sitting Blood Pressure- Standing Blood Pressure 134/84 Blood Pressure [Right Arm] Blood Pressure Mean 94 Blood Pressure Mean [Right Arm] Blood Pressure Position [Right Arm] Pulse Oximetry 97 100 Oxygen Delivery Method Sepsis Recent Fever Within 48 Hours Sepsis New/Unexplained Change in Mental Status Sepsis Action Taken by Nursing 04/07/23 22:23 04/07/23 22:23 04/07/23 22:24 Temperature Temperature Source Pulse Rate - Lying Pulse Rate - Sitting Pulse Rate - Standing Pulse Rate 73 75 Pulse Rate [Apical] Pulse Rate from SpO2 Sensor 75 79 Pulse Rhythm [Apical] Respiratory Rate 24 30 H Respiratory Effort / Characteristics Respiratory Depth Respiratory Pattern Blood Pressure - Lying Blood Pressure - Sitting Blood Pressure- Standing Blood Pressure 129/78 Blood Pressure [Right Arm] Blood Pressure Mean 82 Blood Pressure Mean [Right Arm] Blood Pressure Position [Right Arm] Pulse Oximetry 95 94 Oxygen Delivery Method Sepsis Recent Fever Within 48 Hours Sepsis New/Unexplained Change in Mental Status Sepsis Action Taken by Nursing 04/07/23 22:24 04/07/23 22:30 04/07/23 23:00 Temperature Temperature Source Pulse Rate - Lying Pulse Rate - Sitting Pulse Rate - Standing Pulse Rate 73 69 Pulse Rate [Apical] Pulse Rate from SpO2 Sensor 71 67 Pulse Rhythm [Apical] Respiratory Rate 24 16 Respiratory Effort / Characteristics Respiratory Depth Respiratory Pattern Blood Pressure - Lying Blood Pressure - Sitting Blood Pressure- Standing Blood Pressure 114/79 Blood Pressure [Right Arm] Blood Pressure Mean 100 Blood Pressure Mean [Right Arm] Blood Pressure Position [Right Arm] Pulse Oximetry 98 94 Oxygen Delivery Method Sepsis Recent Fever Within 48 Hours Sepsis New/Unexplained Change in Mental Status Sepsis Action Taken by Nursing 04/07/23 23:30 Temperature Temperature Source Pulse Rate - Lying Pulse Rate - Sitting Pulse Rate - Standing Pulse Rate 71 Pulse Rate [Apical] Pulse Rate from SpO2 Sensor 71 Pulse Rhythm [Apical] Respiratory Rate 16 Respiratory Effort / Characteristics Respiratory Depth Respiratory Pattern Blood Pressure - Lying Blood Pressure - Sitting Blood Pressure- Standing Blood Pressure Blood Pressure [Right Arm] Blood Pressure Mean Blood Pressure Mean [Right Arm] Blood Pressure Position [Right Arm] Pulse Oximetry 97 Oxygen Delivery Method Sepsis Recent Fever Within 48 Hours Sepsis New/Unexplained Change in Mental Status Sepsis Action Taken by Nursing General: Well developed well nourished not ill-appearing older male who appears in no acute distress, breathing comfortably on room air. Normal speech HEENT: Normal cephalic atraumatic. Pupils are equal round and reactive to light. Extraocular movements are intact. Oropharynx is pink with moist mucous membranes. No swelling of the mouth lips or tongue. Neck: Supple with a midline trachea. No meningeal signs or stiffness, no JVD or bruits. No Stridor. Chest: Clear to auscultation bilaterally. No wheezes or rhonchi. No increased work of breathing. Heart: Regular rate and rhythm without murmurs or gallops. Abdomen: Soft nontender, nondistended without rebound guarding or rigidity. Extremities: No cyanosis clubbing or edema. No calf tenderness or assymetry Spine/Back. Non tender to palpation. No CVA tenderness Skin: Good turgor without rashes. Neurologic exam: Cranial nerves two through 12 are intact. Motor and sensation are intact and symmetrical throughout. No nystagmus no tremor. Course Administered Medications Discontinued Medications Sodium Chloride (Nss 1000ml) 500 mls @ 999 mls/hr IV .Q31M ONE Stop: 04/07/23 21:44 Last Infusion: 04/07/23 22:35 Dose: 0 mls/hr Documented By: Admin: 04/07/23 21:41 Dose: 999 mls/hr Documented By: BAYLEE Sodium Chloride (Nss 1000ml) 250 mls @ 999 mls/hr IV .Q16M ONE Stop: 04/07/23 21:36 Last Infusion: 04/07/23 22:34 Dose: 0 mls/hr Documented By: Admin: 04/07/23 21:41 Dose: 999 mls/hr Documented By: BAYLEE Medical Decision Making Differential Diagnosis Orthostatic hypotension, arrhythmia, intracranial process, vertigo, anemia, electrolyte or metabolic abnormality, infection, fall, trauma Medical Records Attestation: I reviewed the patient's medical records. Home Medications Current Medication List: was personally reviewed by me Laboratory Data Attestation: I reviewed the patient's lab results. 04/07/23 19:55 04/07/23 19:55 Lab Results 04/07/23 04/07/23 04/07/23 Range/Units 19:55 19:55 19:55 WBC 7.99 (4.8-10.8) K/ul RBC 5.49 (4.70-6.10) M/uL Hgb 16.8 (14.0-18.0) g/dl Hct 51.3 (42.0-52.0) % MCV 93.4 (80.0-100.0) fL MCH 30.6 (25.0-34.0) pg MCHC 32.7 (32.0-36.0) g/dL RDW Std Deviation 54.6 H (36.4-46.3) fL RDW Coeff of Henry 16.0 H (11.5-14.5) % Plt Count 173 (130-400) K/uL MPV 10.3 (9.4-12.4) fL Immature Gran % (Auto) 0.8 % Neut % (Auto) 68.5 % Lymph % (Auto) 18.0 % Mccreary % (Auto) 10.1 % Eos % (Auto) 2.0 % Baso % (Auto) 0.6 % Neut # (Auto) 5.47 (1.40-6.50) K/uL Lymph # (Auto) 1.44 (1.2-3.4) K/uL Mccreary # (Auto) 0.81 H (0.11-0.59) K/uL Eos # (Auto) 0.16 (0-0.50) K/uL Baso # (Auto) 0.05 (0-0.2) K/uL Immature Gran # (Auto) 0.06 (0.01-0.20) K/uL PT 11.5 (9.0-12.0) Seconds INR 1.1 (0.9-1.1) APTT 27.9 (21.0-31.0) Seconds PTT Ratio 1.0 Sodium 138 (136-145) mmol/L Potassium 4.1 (3.5-5.1) mmol/L Chloride 104 (98-107) mmol/L Carbon Dioxide 28 (21-32) mmol/L Anion Gap 6 (3-11) BUN 27 H (6-23) mg/dl Creatinine 1.38 (0.6-1.4) mg/dl Est Cr Clr Drug Dosing 53.7 ml/min Est GFR ( Amer) 55.6 ml/min Est GFR (Non-Af Amer) 47.9 ml/min BUN/Creatinine Ratio 19.6 (10-20) Glucose 99 (70-99(Fasting)) mg/dl Calcium 9.3 (8.6-10.3) mg/dl Magnesium 1.9 (1.7-2.4) mg/dl Total Bilirubin 0.9 (0.2-1.0) mg/dl AST 22 (13-39) U/L ALT 24 (7-52) U/L Alkaline Phosphatase 99 (34-104) U/L Troponin I High Sens 31.5 H (0-20) pg/ml Total Protein 7.3 (6.0-8.3) gm/dl Albumin 3.9 (3.4-5.0) gm/dl Globulin 3.4 (2.5-4.0) gm/dl Albumin/Globulin Ratio 1.1 (0.9-2) Imaging Data Attestation: I personally reviewed and interpreted this imaging study as follows: My Impression: Chest x-rayno acute infiltrate, failure, pneumothorax seen Head CTno hemorrhage or mass effect seen Radiologist's Impression: Chest X-Ray 04/07/23 19:02 SINGLE VIEW CHEST CLINICAL HISTORY: Atypical chest pain. FINDINGS: An AP, portable, upright chest radiograph is compared to study dated 05/17/2020. The heart is enlarged. The pulmonary vasculature is noncongested. There is bibasilar scarring/atelectasis. No airspace consolidation or large pleural effusion is identified. No pneumothorax is seen. The skeletal structures are osteopenic. The bony thorax is grossly intact. IMPRESSION: Cardiomegaly with no acute cardiopulmonary abnormality. ACT 112: Negative or not required by law. Electronically signed by: Tommy Kern M.D. 04/07/2023 7:[address] 04/07/23 21:14 Exam(s): CT HEAD Without Contrast EXAM: CT Head Without Intravenous Contrast CLINICAL HISTORY: dizziness. TECHNIQUE: Axial computed tomography images of the head/brain without intravenous contrast. CTDI is 38.03 mGy and DLP is 624.41 mGy-cm. Automated exposure control was utilized for the study. A dose lowering technique was utilized adhering to the principles of ALARA. COMPARISON: CT head without contrast dated 04/10/2020 FINDINGS: Brain: There are a few areas of decreased attenuation in the deep cerebral white matter consistent with mild small vessel ischemic/degenerative changes. The cerebral and cerebellar sulci are mildly prominent consistent with mild brain atrophy. No hemorrhage. Ventricles: Unremarkable. No ventriculomegaly. Bones/joints: Unremarkable. No acute fracture. Soft tissues: Unremarkable. Vasculature: Atherosclerotic disease. Sinuses: Similar mucosal thickening of the right maxillary sinus with improved mucosal thickening of the left maxillary sinus. Postsurgical changes suspected. No air-fluid levels. Mastoid air cells: Unremarkable as visualized. No mastoid effusion. IMPRESSION: No acute intracranial process or significant alteration from the previous examination. Presumed incidental underlying chronic findings, not significantly altered. Electronically signed by: Dawson Cotton MD 04/07/23 22:53 PM ECG Data Attestation: I personally reviewed and interpreted this ECG as follows: Indication: + weakness Rate (beats per minute): 77 Rhythm: + atrial fibrillation ECG Intervals/blocks: + IVCD ECG Reyno: + Left axis deviation ECG ST segments: + Normal ST segments ECG Findings: no PACs or no PVCs Comparison ECG Date: from (07/06/2020) Change: no significant change MDM Narrative This patient comes in as described above. He was placed in room C11 on a court monitor. He was noted to be in A-fib. He has chronic A-fib he is on Eliquis. He looks well is a normal neurologic exam. IV access was established. Blood work was obtained. He has no significant anemia. He has no white count or fever to suggest infection. He has no significant electrolyte or metabolic abnormalities. BUN is mildly elevated however appears to be chronically. Chest x-ray does not show congestive heart failure, pneumonia, pneumothorax. I did order a CAT scan of his head. Orthostatics were obtained as well. He was given small IV fluid bolus. CAT scan of his head is unremarkable. His initial t roponin is mildly elevated at 31 I did order a second 1 to trended. Regardless, I do think he will need to be admitted/observed. I have consulted Dr. Oliva who will see the patient for these measures. Continuous court monitor: Orders placed EMR for continuous cardiac monitoring: Upon my evaluation patient to be in normal sinus rhythm rate of 70. 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
--- NOTE | 2023-04-07 22:54 | CT Scan Report ---
Exam(s): CT HEAD Without Contrast EXAM: CT Head Without Intravenous Contrast CLINICAL HISTORY: dizziness. TECHNIQUE: Axial computed tomography images of the head/brain without intravenous contrast. CTDI is 38.03 mGy and DLP is 624.41 mGy-cm. Automated exposure control was utilized for the study. A dose lowering technique was utilized adhering to the principles of ALARA. COMPARISON: CT head without contrast dated 04/10/2020 FINDINGS: Brain: There are a few areas of decreased attenuation in the deep cerebral white matter consistent with mild small vessel ischemic/degenerative changes. The cerebral and cerebellar sulci are mildly prominent consistent with mild brain atrophy. No hemorrhage. Ventricles: Unremarkable. No ventriculomegaly. Bones/joints: Unremarkable. No acute fracture. Soft tissues: Unremarkable. Vasculature: Atherosclerotic disease. Sinuses: Similar mucosal thickening of the right maxillary sinus with improved mucosal thickening of the left maxillary sinus. Postsurgical changes suspected. No air-fluid levels. Mastoid air cells: Unremarkable as visualized. No mastoid effusion. IMPRESSION: No acute intracranial process or significant alteration from the previous examination. Presumed incidental underlying chronic findings, not significantly altered. Electronically signed by: Dawson Cotton MD 04/07/23 22:53 PM
[2023-04-07 23:02] LABS: Magnesium 1.9 mg/dl (1.7-2.4)
[2023-04-07] MEDS ORDERED: APIXABAN 2.5 MG TAB PO STA (23:33)
--- NOTE | 2023-04-07 23:33 | History & Physical Report ---
Date of Service April 07, 2023 Assessment & Plan (1) Dizziness: Plan: Secondary to orthostasis. 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 Romero, of contemplated decrease in maintenance beta-juliette dosage.) Recheck orthostatic vitals around noontime tomorrow. Follow troponin, TTE for progression PT OT eval DVT prophylaxis. Eliquis Full code Patient partner requesting updates from providers. Ms. Laura Thomas, contact #[phone]. Text document was generated using [employer] voice recognition software. It may contain grammatical or spelling errors. Kindly contact undersigned for clarification of any documentation item in question. History of Present Illness Chief Complaint: Dizziness Primary Care Provider: Eamon Felder, History obtained from patient, family, and records. Medical history significant for chronic diastolic heart failure (EF 50 to 54%, TTE 2022), valvular heart disease (mild AR/MR/TR/AR), A-fib on Eliquis, hypertension, hyperlipidemia, MYRON on CPAP, GERD, IBS, dementia, history essential tremors, mood disorder, BPH, past tobacco abuse. Last confinement May 2020 for acute pancreatitis, possibly from Lasix. 4 days ago, patient noted worsening dizziness symptoms described mostly as lightheadedness, worse on standing up and moving around. Dizziness would make patient fall. Some gait instability. Patient denies headache, chest pain. Usual SOB on exertion. Usual alternating constipation diarrhea symptoms from IBS. No new medications. Patient has not taken as needed diuretic at home for some time now due to stable fluid status. Patient directed to ER after being seen at urgent care center. Orthostatic vitals to be positive in the ER with SBP drop from 140 (supine position) to 120 (standing position). Patient admits to some lightheadedness during testing. 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 Allergies Allergy/AdvReac Type Severity Reaction Status Date / Time house dust AdvReac Mild Congested Verified 02/27/23 11:24 ORRIS ROOT AdvReac Mild RUNNY NOSE Uncoded 02/27/23 11:24 Home Medications Medication Instructions Recorded Confirmed Type albuterol sulfate 90 mcg/actuation 2 puff inhalation Q4H PRN cough or 11/10/18 04/07/23 History aerosol inhaler (ProAir HFA) wheezing allopurinol 100 mg tablet 200 mg PO QAM 11/10/18 04/07/23 History (Zyloprim) melatonin 5 mg capsule 5 mg PO HS 11/10/18 04/07/23 History metoprolol succinate 25 mg 25 mg PO QAM 11/10/18 04/07/23 History tablet,extended release 24 hr (Toprol XL) memantine 10 mg tablet (Namenda) 10 mg PO BID 04/10/20 04/07/23 History apixaban 2.5 mg tablet (Eliquis) 2.5 mg PO BID 05/17/20 04/07/23 History lorazepam 0.5 mg tablet 0.5 mg PO QID PRN Anxiety 07/06/20 04/07/23 History hyoscyamine sulfate 0.125 mg tablet 0.125 mg PO Q4 PRN Abdominal Pain 11/05/22 04/07/23 History tamsulosin 0.4 mg capsule 0.4 mg PO HS 11/05/22 04/07/23 History torsemide 10 mg tablet 10 mg PO UD PRN Fluid Retention 11/05/22 04/08/23 History vardenafil 20 mg tablet 20 mg PO DAILY PRN Erectile 11/05/22 04/07/23 History Dysfunction cyanocobalamin (vitamin B-12) 1,000 mcg sublingual DAILY 04/07/23 04/07/23 Hist ory 1,000 mcg sublingual tablet fluticasone propionate 50 1 spray intranasal QAM 04/07/23 04/07/23 History mcg/actuation nasal spray,suspension ipratropium bromide 42 mcg (0.06 2 spray intranasal TID PRN 04/07/23 04/07/23 History %) nasal spray allergies pantoprazole 40 mg tablet,delayed 40 mg PO DAILYBB 04/07/23 04/07/23 History release venlafaxine 150 mg 300 mg PO QAM 04/07/23 04/07/23 History capsule,extended release 24 hr Past Med/Surg History Medical History 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 Admitted to [facility] on May 11, 2020 with acute on chronic dyspnea, orthopnea, PND, associated chest pressure. Diagnosed with acute decompensated systolic heart failure. Resting echocardiography revealed mild to moderate reduction in left ventricular systolic function, EF 40 to 45%, down from 50 to 54% in 2019. Troponin was elevated, flat, consistent with CHF, volume overload though patient notably has risk factors for ischemic heart disease. He was treated with IV furosemide, 40 mg twice per day, diuresing well, with significant subjective improvement. Patient discharged on May 13, 2020 on furosemide 40 mg/day. Anxiety and depression Asthma STABLE Atrial fibrillation asymptomatic - follows with Dr Romero. 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 Furosemide decreased to 20 mg/day on discharge. Pernicious anemia Rosacea Sciatica Sleep apnea CPAP Stage 3b chronic kidney disease Vertigo Vitamin D deficiency Surgical History History of appendectomy History of arthroplasty of right knee History of bowel resection DIVERTICULITIS S/P PERFORATION/COLON RESECTION (2005) History of cataract surgery RT History of colonoscopy 2019 History of colostomy reversal History of endoscopic sinus surgery Right side-Dr. Yuan History of esophagogastroduodenoscopy (EGD) 2019 History of tonsillectomy Family History Mother Family hx of colon cancer Family history of diabetes mellitus Social History Smoking Status: Former smoker Tobacco Type: Cigarettes packs per day: 0.5; Second Hand Exposure: No; Do You Dip or Chew Tobacco: No; Hx Alcohol Use: Yes Hx Substance Use: No Preferred Language: Citizen Of [place] Communication Ability: Effective Visual Impairment: Limited Hearing Ability: Use of Hearing Aid Chairman & Chief Executive Officer Required: No Beliefs That Will Affect Care: None marital status: unknown marital status details: Engaged Current Living Situation: Other Current Living Situation Comment: Friend Laura Thomas helps with care How many Children do You have: 2 other: Brother Matthieu is medical power of dividing machine operator, Feels Safe at Home: Yes Safety Concerns: Feels Safe At This Time Childhood Exposure to Second-Hand Smoke: No Diet: ideal protein and low salt Diet Comment: Low fat Assistive Devices: Cane and CPAP Review of Systems Review of Systems: As per HPI, all other systems reviewed and negative Physical Exam Physical Exam: GENERAL: Comfortable, obese, pleasant, no respiratory distress SKIN: Normal color, warm HEENT: [place] palpebral conjunctivae, no ptosis, dry buccal mucosa NECK : Supple, short neck, no tenderness CHEST : CTA, no tenderness HEART : Irregular, no obvious murmurs ABDOMEN: Some distention, nontender EXTREMITIES : No LE swelling/tenderness, no other conspicuous deformities noted NEUROLOGIC : Coherent, no facial asymmetry, gait and stance not assessed Results & Data Results & Data Vital Signs (Past 12 Hours) Vital Signs Temp Pulse Pulse Resp BP BP Pulse Ox 04/07/23 22:24 75 18 114/79 95 04/07/23 21:43 66 04/07/23 20:55 97 04/07/23 20:55 72 18 122/77 97 04/07/23 18:58 36.3 C L 85 18 121/76 93 O2 Del Method 04/07/23 22:24 Room Air 04/07/23 21:43 04/07/23 20:55 Room Air 04/07/23 20:55 Room Air 04/07/23 18:58 Room Air Laboratory Results Laboratory Results WBC 7.99 K/ul (4.8-10.8) 04/07/23 19:55 RBC 5.49 M/uL (4.70-6.10) 04/07/23 19:55 Hgb 16.8 g/dl (14.0-18.0) 04/07/23 19:55 Hct 51.3 % (42.0-52.0) 04/07/23 19:55 MCV 93.4 fL (80.0-100.0) 04/07/23 19:55 MCH 30.6 pg (25.0-34.0) 04/07/23 19:55 MCHC 32.7 g/dL (32.0-36.0) 04/07/23 19:55 RDW Std Deviation 54.6 fL (36.4-46.3) H 04/07/23 19:55 RDW Coeff of Herny 16.0 % (11.5-14.5) H 04/07/23 19:55 Plt Count 173 K/uL (130-400) 04/07/23 19:55 MPV 10.3 fL (9.4-12.4) 04/07/23 19:55 Immature Gran % (Auto) 0.8 % 04/07/23 19:55 Neut % (Auto) 68.5 % 04/07/23 19:55 Lymph % (Auto) 18.0 % 04/07/23 19:55 [place] % (Auto) 10.1 % 04/07/23 19:55 Eos % (Auto) 2.0 % 04/07/23 19:55 Baso % (Auto) 0.6 % 04/07/23 19:55 Neut # (Auto) 5.47 K/uL (1.40-6.50) 04/07/23 19:55 Lymph # (Auto) 1.44 K/uL (1.2-3.4) 04/07/23 19:55 [place] # (Auto) 0.81 K/uL (0.11-0.59) H 04/07/23 19:55 Eos # (Auto) 0.16 K/uL (0-0.50) 04/07/23 19:55 Baso # (Auto) 0.05 K/uL (0-0.2) 04/07/23 19:55 Immature Gran # (Auto) 0.06 K/uL (0.01-0.20) 04/07/23 19:55 PT 11.5 Seconds (9.0-12.0) 04/07/23 19:55 INR 1.1 (0.9-1.1) 04/07/23 19:55 APTT 27.9 Seconds (21.0-31.0) 04/07/23 19:55 PTT Ratio 1.0 04/07/23 19:55 Sodium 138 mmol/L (136-145) 04/07/23 19:55 Potassium 4.1 mmol/L (3.5-5.1) 04/07/23 19:55 Chloride 104 mmol/L (98-107) 04/07/23 19:55 Carbon Dioxide 28 mmol/L (21-32) 04/07/23 19:55 Anion Gap 6 (3-11) 04/07/23 19:55 BUN 27 mg/dl (6-23) H 04/07/23 19:55 Creatinine 1.38 mg/dl (0.6-1.4) 04/07/23 19:55 Est Cr Clr Drug Dosing 53.7 ml/min 04/07/23 19:55 Est GFR ( Amer) 55.6 ml/min 04/07/23 19:55 Est GFR (Non-Af Amer) 47.9 ml/min 04/07/23 19:55 BUN/Creatinine Ratio 19.6 (10-20) 04/07/23 19:55 Glucose 99 mg/dl (70-99(Fasting)) 04/07/23 19:55 Calcium 9.3 mg/dl (8.6-10.3) 04/07/23 19:55 Magnesium 1.9 mg/dl (1.7-2.4) 04/07/23 19:55 Total Bilirubin 0.9 mg/dl (0.2-1.0) 04/07/23 19:55 AST 22 U/L (13-39) 04/07/23 19:55 ALT 24 U/L (7-52) 04/07/23 19:55 Alkaline Phosphatase 99 U/L (34-104) 04/07/23 19:55 Troponin I High Sens 31.5 pg/ml (0-20) H 04/07/23 19:55 Total Protein 7.3 gm/dl (6.0-8.3) 04/07/23 19:55 Albumin 3.9 gm/dl (3.4-5.0) 04/07/23 19:55 Globulin 3.4 gm/dl (2.5-4.0) 04/07/23 19:55 Albumin/Globulin Ratio 1.1 (0.9-2) 04/07/23 19:55 Impressions Chest X-Ray 04/07/23 19:02 SINGLE VIEW CHEST CLINICAL HISTORY: Atypical chest pain. FINDINGS: An AP, portable, upright chest radiograph is compared to study dated 05/17/2020. The heart is enlarged. The pulmonary vasculature is noncongested. There is bibasilar scarring/atelectasis. No airspace consolidation or large pleural effusion is identified. No pneumothorax is seen. The skeletal structures are osteopenic. The bony thorax is grossly intact. IMPRESSION: Cardiomegaly with no acute cardiopulmonary abnormality. ACT 112: Negative or not required by law. Electronically signed by: Tommy Kern M.D. 04/07/2023 7:[address] 04/07/23 21:14 Exam(s): CT HEAD Without Contrast EXAM: CT Head Without Intravenous Contrast CLINICAL HISTORY: dizziness. TECHNIQUE: Axial computed tomography images of the head/brain without intravenous contrast. CTDI is 38.03 mGy and DLP is 624.41 mGy-cm. Automated exposure control was utilized for the study. A dose lowering technique was utilized adhering to the principles of ALARA. COMPARISON: CT head without contrast dated 04/10/2020 FINDINGS: Brain: There are a few areas of decreased attenuation in the deep cerebral white matter consistent with mild small vessel ischemic/degenerative changes. The cerebral and cerebellar sulci are mildly prominent consistent with mild brain atrophy. No hemorrhage. Ventricles: Unremarkable. No ventriculomegaly. Bones/joints: Unremarkable. No acute fracture. Soft tissues: Unremarkable. Vasculature: Atherosclerotic disease. Sinuses: Similar mucosal thickening of the right maxillary sinus with improved mucosal thickening of the left maxillary sinus. Postsurgical changes suspected. No air-fluid levels. Mastoid air cells: Unremarkable as visualized. No mastoid effusion. IMPRESSION: No acute intracranial process or significant alteration from the previous examination. Presumed incidental underlying chronic findings, not significantly altered. Electronically signed by: Dawson Cotton MD 04/07/23 22:53 PM Diagnostic Findings EKG as per my interpretation :Rate 75, A-fib, LAD, LAFB, septal infarct, no ischemia
[2023-04-08] MEDS ORDERED: HYOSCYAMINE SULFATE 0.125 MG TAB PO PRN
[2023-04-08] MEDS ORDERED: PROMETHAZINE HCL 12.5 MG in SODIUM CHLORIDE 0.9% 50 ML IV PRN
[2023-04-08] MEDS ORDERED: ACETAMINOPHEN 325 MG TAB PO PRN
[2023-04-08] MEDS ORDERED: LORazepam 0.5 MG TAB PO PRN
[2023-04-08 06:11] LABS: Basophils # (auto) 0.03 K/uL (0-0.2); Basophils % (auto) 0.4 %; Eosinophils # (auto) 0.12 K/uL (0-0.50); Eosinophils % (auto) 1.7 %; Hemoglobin 15.3 g/dl (14.0-18.0); Immature Granulocytes # (auto) 0.03 K/uL (0.01-0.20); Immature Granulocytes % (auto) 0.4 %; Lymphocytes % (auto) 22.5 %; Mean Corpuscular Hgb Conc 33.3 g/dL (32.0-36.0); Mean Corpuscular Volume 90.2 fL (80.0-100.0); Mean Platelet Volume 10.3 fL (9.4-12.4); Monocytes # (auto) 0.71 K/uL (0.11-0.59); Neutrophils # (auto) 4.62 K/uL (1.40-6.50); Platelet Count 156 K/uL (130-400); RDW Standard Deviation 53.3 fL (36.4-46.3); White Blood Count 7.11 K/ul (4.8-10.8)
[2023-04-08] MEDS ORDERED: PANTOprazole 40 MG TAB PO SCH (06:30)
[2023-04-08] MEDS ORDERED: allopurinoL 100 MG TAB PO SCH (09:00)
[2023-04-08] MEDS ORDERED: FLUTICASONE PROPIONATE NA SPR 16 GM BTL SCH (09:00)
[2023-04-08] MEDS ORDERED: METOPROLOL SUCC 25MG EXT REL TAB PO SCH (09:00)
[2023-04-08] MEDS ORDERED: MEMANTINE HCL 5 MG TAB PO SCH (09:00)
[2023-04-08] MEDS ORDERED: APIXABAN 2.5 MG TAB PO SCH (09:00)
[2023-04-08] MEDS ORDERED: VENLAFAXINE HCL XR 150 MG CAPXR PO SCH (09:00)
--- NOTE | 2023-04-08 14:14 | Discharge Summary ---
Date of Service April 08, 2023 Admission HPI Per Admitting Provider History obtained from patient, family, and records. Medical history significant for chronic diastolic heart failure (EF 50 to 54%, TTE 2022), valvular heart disease (mild AR/MR/TR/MI), A-fib on Eliquis, hypertension, hyperlipidemia, MYRON on CPAP, GERD, IBS, dementia, history essential tremors, mood disorder, BPH, past tobacco abuse. Last confinement May 2020 for acute pancreatitis, possibly from Lasix. 4 days ago, patient noted worsening dizziness symptoms described mostly as lightheadedness, worse on standing up and moving around. Dizziness would make patient fall. Some gait instability. Patient denies headache, chest pain. Usual SOB on exertion. Usual alternating constipation diarrhea symptoms from IBS. No new medications. Patient has not taken as needed diuretic at home for some time now due to stable fluid status. Patient directed to ER after being seen at urgent care center. Orthostatic vitals to be positive in the ER with SBP drop from 140 (supine position) to 120 (standing position). Patient admits to some lightheadedness during testing. 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 Admission Exam Per Admitting Provider GENERAL: Comfortable, obese, pleasant, no respiratory distress SKIN: Normal color, warm HEENT: [place] palpebral conjunctivae, no ptosis, dry buccal mucosa NECK : Supple, short neck, no tenderness CHEST : CTA, no tenderness HEART : Irregular, no obvious murmurs ABDOMEN: Some distention, nontender EXTREMITIES : No LE swelling/tenderness, no other conspicuous deformities noted NEUROLOGIC : Coherent, no facial asymmetry, gait and stance not assessed Principal Diagnosis Orthostatic hypotension Lower extremity weakness Discharge Exam GENERAL: Alert and oriented x3. NAD, on RA. HEENT: No pallor, no icterus. Pupils equal, round and reactive to light. Oral mucosa moist. NECK: No JVD, no neck masses. HEART: S1 and S2 heard. irregular rate and rhythm. No murmur, no gallop. RESPIRATORY SYSTEM: Normal AP diameter. No accessory muscle use. No wheezing, no crackles. ABDOMEN: Soft, bowel sounds present, nontender, no distention. CENTRAL NERVOUS SYSTEM: No facial droop. Speech is clear. Obeys simple commands. Moves extremities. EXTREMITIES: No edema, no erythema seen. Discharge Data Allergies Allergy/AdvReac Type Severity Reaction Status Date / Time house dust AdvReac Mild Congested Verified 02/27/23 11:24 ORRIS ROOT AdvReac Mild RUNNY NOSE Uncoded 02/27/23 11:24 Consultations 04/07/23 22:33 ED Decision to Admit Stat Ordered Studies 04/07/23 21:14 CT head/brain wo con Stat Hospital Course (1) Dizziness: Plan Patient came in with weakness and dizziness, and fall likely due to dizziness. Patient reports he has not taken his torsemide in the last 3 weeks and only takes very occasionally when needed for fluid retention. Patient explained the need for slow transition during change in positions to avoid dizziness due to orthostatic hypotension. Patient reports improving dizziness and orthostatic hypotension improved on repeat ortho vitals. Physical therapy evaluated, recommends outpatient PT evaluation for lower extremity strengthening and gait training. Prescription provided. Patient's home medication metoprolol and Namenda doses are reduced. Patient does not want to stay in the hospital and would like to go home today. Patient is hemodynamically stable. He is being discharged home with following instruction at the point of discharge: Follow-up with your primary care physician within a week time and likely you will need labs CBC/CMP/magnesium/phosphorus. Follow-up with your cardiology as prior. Because of your dizziness and orthostatic hypotension, your metoprolol dose and Namenda dose has been decreased upon discharge. You are being provided with prescription for outpatient PT for lower extremity strengthening and gait training. Maintain slow transition during changing positions from lying to sitting and sitting to standing. Take your medications as prescribed. Home Health Attestation I certify that this patient is under my care and that I, or a physicians technician assistant working with me, had a face to-face encounter that meets the home health [id number] encounter requirements with this patient. The encounter with the patient was in whole, or in part, for the following medical condition, which is the primary reason for home health care (list medical condition): I certify that, based on my findings, the following services are medically necessary home health services: My clinical findings support the need for the above services because: Further, I certify that my clinical findings support that this patient is homebound (i.e. absences from home require considerable and taxing effort and are for medical reasons or mandaeism services or infrequently or of short duration when for other reasons) because: Certification for Home Health Services: Based on the above findings, I certify that this patient is confined to the home and needs intermittent senior living care, physical therapy and/or speech therapy or continues to need occupational therapy. The patient is under my care, and I have initiated the establishment of the plan of care. This patient will be followed by a physician who will periodically review the plan of care. Total Time Total Time Spent Total Time Spent (In Minutes): 45 Discharge Plan Discharge Items Patient Disposition: Home - Home Health Services Reason For Visit: DIZZINESS, TROP ELEV Discharge Diagnosis: Orthostatic hypotension Lower extremity weakness Activity: As commented below Activity Comment: This slow transition during changing positions as discussed. Non-emergency contact: Primary Care Provider Call non-emergency contact if: you have any medication questions and your symptoms worsen Follow-up/Referrals: Eamon Felder, [Primary Care Provider] - Diet: Heart Healthy Addtl Attending Provider Instructions: Follow-up with your primary care physician within a week time and likely you will need labs CBC/CMP/magnesium/phosphorus. Follow-up with your cardiology as prior. Because of your dizziness and orthostatic hypotension, your metoprolol dose and Namenda dose has been decreased upon discharge. You are being provided with prescription for outpatient PT for lower extremity strengthening and gait training. Maintain slow transition during changing positions from lying to sitting and sitting to standing. Take your medications as prescribed. Pending Studies at Discharge: No Stand-Alone Forms: My [facility], Smoking Cessation Medications and DC Order Prescriptions: Continued torsemide 10 mg tablet 10 mg PO UD PRN (Reason: Fluid Retention) tamsulosin 0.4 mg capsule 0.4 mg PO HS hyoscyamine sulfate 0.125 mg tablet 0.125 mg PO Q4 PRN (Reason: Abdominal Pain) vardenafil 20 mg tablet 20 mg PO DAILY PRN (Reason: Erectile Dysfunction) Eliquis 2.5 mg Tablet 2.5 mg PO BID lorazepam 0.5 mg tablet 0.5 mg PO QID PRN (Reason: Anxiety) allopurinol [Zyloprim] 100 mg Tablet 200 mg PO QAM albuterol sulfate [ProAir HFA] 90 mcg/actuation Hfa Aerosol Inhaler 2 puff INHALATION Q4H PRN (Reason: cough or wheezing) melatonin 5 mg Capsule 5 mg PO HS venlafaxine 150 mg capsule,extended release 24hr 300 mg PO QAM cyanocobalamin (vitamin B-12) [Vitamin B-12] 1,000 mcg Tablet, Sublingual 1,000 mcg SUBLINGUAL DAILY pantoprazole 40 mg tablet,delayed release (DR/EC) 40 mg PO DAILYBB ipratropium bromide 42 mcg (0.06 %) spray,non-aerosol 2 spray intranasal TID PRN (Reason: allergies) Rx Instructions: administer into each nostril fluticasone propionate [Flonase] 50 mcg/actuation [place],Suspension 1 spray INTRANASAL QAM Rx Instructions: administer into each nostril Changed metoprolol succinate [Toprol XL] 25 mg Tablet Extended Release 24 Hr 12.5 mg PO QAM Qty: 15 0RF memantine [Namenda] 10 mg tablet 5 mg PO BID Qty: 15 0RF Admission Data Admit Date/Time: 04/07/23 23:39 Attending Provider: Nubia Alford Admit Provider: Basil Mcginnis Primary Care Provider: Eamon Felder Other Providers: Basil Mcginnis
[2023-04-08] MEDS ORDERED: TAMSULOSIN HCL 0.4 MG CAP PO SCH (21:00)
--- NOTE | 2023-04-09 23:05 | Electrocardiogram Report ---
Test Reason : Blood Pressure : / mmHG Vent. Rate : 077 BPM Atrial Rate : 000 BPM P-R Int : 000 ms QRS Dur : 136 ms QT Int : 386 ms P-R-T Axes : 000 -49 025 degrees QTc Int : 436 ms Atrial fibrillation Left axis deviation Non-specific intra-ventricular conduction block Minimal voltage criteria for LVH, may be normal variant Possible Inferior infarct Abnormal ECG When compared with ECG of 06-JUL-2020 17:36, Premature ventricular complexes are now Present Confirmed by Yousif Elkins ([id number]) on 04/09/2023 11:04:45 PM Referred By: REFERRED SELF Confirmed By:Yousif Elkins
== END 2023-04-08 15:10 | disposition home health service (06) ==
LOC: ED 18:47 → EDINP 18:47 → 2N 04-08 10:34

== ENCOUNTER 2023-07-30 05:09 | Inpatient (IN) ==
--- OUTSIDE RECORDS SUMMARY | 2023-07-30 05:15 | External Medical Summary | Summary of Care ---
Author Name Unknown Organization [facility] Address [address] [place] [address] Phone [phone] Care Team Providers Care Truck Repair Service Estimator Name Role Phone AlfredEamon mitchell Primary Care Provider [phone] Encounter Details Date Type Department Care Team (Late st Contact Info) Description 07/22/2023 Documentation Psychiatry, [place] [address] [place] [address] Pippa Ryan MD [address] [place] [address] Allergies Active Allergy Reactions Criticality Noted Date Comments Dust 04/15/2011 Upper resp sx Other Allergy (See Comments) 10/23/2012 Perfume that contains kiah root causes nasal congestion documented as of this encounter (statuses as of 07/22/2023) Medications Medication Sig Dispensed Refills Start Date End Date Status Vardenafil HCl (LEVITRA) 20 MG TabletIndications:Im potence of organic origin Take 1 Tab by mouth daily as needed for Erectile Dysfunction. 1 hour prior to intercourse, no more than 1 dose per day. 10 Tab 5 04/24/2018 Active Clindamycin Phosphate 1 % SWABIndications:Amy cea Apply to face daily as needed 60 Each 1 08/19/2018 Active fluticasone (FLONASE) 50 MCG/ACT nasal spray Administer 1 [place] into nostril in the morning. 0 Active Ipratropium [place] 0.06 % Nasal Solution (Atrovent)Indication s:Periodic breathing instill 2 sprays into each nostril three times a day if needed for allergies 0 10/24/2020 Active CPAP every night at bedtime. 0 Active Albuterol Sulfate HFA 108 (90 Base) MCG/ACT Inhalation Aerosol SolutionIndications: Bronchitis, complicated INHALE 2 PUFFS EVERY 4 HOURS NEEDED FOR COUGH OR WHEEZING 18 g 1 10/27/2022 Active B-12 1000 MCG Oral Tablet Take 1,000 mcg by mouth daily. 0 Active Tamsulosin HCl 0.4 MG Oral Capsule (Flomax)Indications: BPH with obstruction/lower urinary tract symptoms TAKE 1 CAPSULE AT BEDTIME 90 Capsule 3 01/24/2023 Active Pantoprazole Sodium 40 MG Oral Tablet Delayed Release (Protonix) Take 1 Tablet by mouth in the morning. 180 Tablet 3 01/31/2023 Active Eliquis 2.5 MG Oral Tablet (Apixaban)Indication s:Chronic atrial fibrillation (HCC) TAKE 1 TABLET BY MOUTH TWICE A DAY 60 Tablet 3 03/14/2023 Active Hyoscyamine Sulfate 0.125 MG Sublingual Tablet Sublingual (Levsin)Indications: Irritable bowel syndrome One pill by mouth or under the tongue every 4 hours as needed for abdominal pain 40 Tablet 4 03/31/2023 Active Metoprolol Succinate ER 25 MG Oral Tablet Extended Release 24 Hour (toPROL XL)Indications:Chron ic atrial fibrillation (HCC) 1/2 tablet daily. 90 Tablet 3 04/14/2023 Active Doxycycline Monohydrate 50 MG Oral Capsule Take 50 mg by mouth daily. 30 Capsule 11 04/21/2023 Active Memantine HCl 10 MG Oral Tablet (Namenda) 0 06/02/2023 Active Mckinley 2 % External Pad (Erythromycin)Indica tions:Rosacea apply topically TO FACE DAILY FOR ROSACEA as directed by prescriber 60 Each 5 06/11/2023 Active Hydrocortisone (Perianal) 2.5 % External CreamIndications:Hem orrhoids, external without complications Administer into the rectum 2 times a day. 28 g 1 06/11/2023 Active Torsemide 10 MG Oral Tablet (Demadex)Indications :Chronic systolic congestive heart failure (HCC) TAKE 1 TABLET BY MOUTH NEEDED ONLY FOR SWELLING 90 Tablet 0 06/28/2023 Active Additional Information Patient not taking.Reported on 07/15/2023 LORazepam 1 MG Oral Tablet (Ativan) Take 0.5 mg (1/2 pill) up to 4 times a day as needed for anxiety 60 Tablet 3 07/02/2023 Active Peppermint Flavor Oil Use as directed. 0 Active Probiotic 250 MG Oral Capsule Take by mouth. 0 Active DULoxetine HCl 60 MG Oral Capsule Delayed Release Particles (Cymbalta) Weeks 3: take 60 mg (1 pill) every day 30 Capsule 6 07/15/2023 Active DULoxetine HCl 30 MG Oral Capsule Delayed Release Particles (Cymbalta) Take 1 pill daily for 30 days before stepping up to 60 mg dose 16 Capsule 0 07/22/2023 Active documented as of this encounter (statuses as of 07/22/2023) Active Problems Problem Noted Date Diagnosed Date Prediabetes 06/16/2023 Overview: Per Prediabetes protocol Sacroiliitis 11/06/2022 HPTH (hyperparathyroidism) 11/06/2022 Chronic systolic congestive heart failure 2021 Stage 3b chronic kidney disease 09/18/2020 Overview: Per CKD protocol Periodic breathing 07/27/2020 Hypersomnolence disorder 07/27/2020 Periodic limb movement disorder (PLMD) 0 Major depressive disorder, recurrent episode, mo derate 09/10/2019 Chronic atrial fibrillation 11/19/2018 MARIA C (generalized anxiety disorder) 05/22/2018 Essential tremor 03/04/2017 Dyslipidemia, goal LDL below 100 11/10/2015 Family history of colon cancer 04/28/2014 Warfarin anticoagulation 01/27/2013 MYRON (obstructive sleep apnea) 05/05/2012 Overview: AHI 5.6 ON CPAP Mild nocturnal hypoxemia Irritable bowel syndrome 04/20/2012 History of colonic polyps 04/21/2010 Overview: . 11/08/14: adenoma of the ascending colon, repeat 5 years 05/15/11: adenoma repeat in three years ED 03/01/2010 NONALLERGIC RHINITIS 02/14/2010 ADVANCE DIRECTIVE INFORMATION 02/11/2010 Overview: Yes, Patient instructed to provide copy of advance directive for provider to review and to be scanned into Electronic Medical Record Vitamin D deficiency 10/03/2008 Pernicious anemia 08/05/2008 Lumbar spondylosis with myelopathy 08/21/2007 Rosacea 05/28/2007 Adjustment disorder with depressed mood 04/10/20 07 documented as of this encounter (statuses as of 07/22/2023) Resolved Problems Problem Noted Date Diagnosed Date Resolved Date Kidney disease, chronic, sta ge IV (GFR 15-29 ml/min) 10/17/2021 10/17/2021 Major depressive disorder, recurrent episode 9 03/14/2020 Fatigue 09/12/2016 11/19/2018 Kidney disease, chronic, sta ge III (GFR 30-59 ml/min) 11/21/2014 09/21/2020 Overview: Per CKD protocol #1 Pure hypercholesterolemia 10/12/2013 Screening for cholesterol level 09/27/2013 09/24/2016 Jha's esophagus 04/07/2013 09/10/19 20 Overview: 05/01/16: esophagitis, no Jha's,. Repeat 2019 at the same time as colonoscopy 04/01/13: EGD short segment Jha's esophagus, repeat 03/2016, Dr. Lee 2009: EGD clear 2007: Jha's esophagus Abnormal results of liver function studies 11/25/2011 09/24/2016 Anticoagulated on Coumadin 11/22/2011 0 09/24/2016 Left bundle branch block 11/22/201102/2012 Kidney disease, chronic, sta ge III (GFR 30-59 ml/min) 11/22/2011 12/13/2011 Gastro-esophageal reflux 11/22/2011 Diverticulitis of colon 11/21/201111/06 Near syncope 07/01/2011 12/13/2011 Near syncope 05/27/2011 11/19/2018 Other premature beats 10/30/20102011 Atrial fibrillation 10/01/2010 11/20/19 19 Other premature beats 06/21/20102011 Preoperative cardiovascular examination 06/21/2010 12/13/2011 Chronic diarrhea 04/21/2010 11/19/2018 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11/06 TRIGGER THUMB 06/13/2008 09/24/2016 Family history of diabetes mellitus 01/18/2008 11/19/2018 DISC DIS NEC-OF LS SPINE 08/21/2007 Family history of cardiovascular disease 08/10/2007 11/19/2018 Irritable bowel syndrome 04/10/2007 Dermatophytosis of nail 04/10/200709/08 Esophageal reflux 09/24/2016 Chronic sinusitis 09/24/2016 Polyp of nasal sinus 019 documented as of this encounter (statuses as of 07/22/2023) Immunizations Name Administration Dates Next Due COVID-19 mRNA, LNP-s, No Pre serve, 2-Dose Series (Digital Shadows) 07/28/2021,11/16/2020,10/17/2020 Pneumococcal Conjugate Vacc, 13 Valent (Prevnar) 10/26/2015 Pneumococcal Polysaccharide PPV23 (Pneumovax) 06/13/2008 SEASONAL INFLUENZA, PF, 6 M & Above, IM , (FLULAVAL or FLUZONE) 05/22/2018,06/25/2017 Season Influenza, Quad, PF, Adjuvanted, 65+ Yrs, IM (FLUAD) 05/31/2020 Seasonal Influenza, Quadriva lent Hd (Fluzone Hd) 05/26/2023,06/21/2022,07/26/2021 Seasonal Influenza, Quadriva lent, No Preserve, IM 06/27/2016,06/19/2015 06/27/2017 Seasonal Influenza, Split, I IV3, With Preserve, Inj 05/25/2014,06/09/2013,07/13/2012,01/2010,06/21/2009,07/23/2008,08/21/20 07 Seasonal Influenza, Trivalen t, Adjuvanted, 65+ yrs 06/04/2019 TD, Preservative Free 06/13/2008 TDAP (age 10 and older)(Boostrix) 10/26/2015 Varicella Zoster Vaccine (Adult) 07/13/2012 documented as of this encounter Social History Tobacco Use Types Packs/Day Years Used Date Smoking Tobacco: Former Cigarettes 0.8 20 Q uit: 09/08/1979 Smokeless Tobacco: Never Comments:no passive smoke ex posures, Quit at the age of 36. Alcohol Use Standard Drinks/Week Comments No 0 (1 standard drink = 0.6 oz pur e alcohol) PHQ-2 Answer Date Recorded PHQ Adult Total Score 7 05/26/2023 Hunger Vital Sign Answer Date Recorded Within the past 12 months, y ou worried that your food would run out before you got the money to buy more. Never true 07/01/20 Within the past 12 months, t he food you bought just didn't last and you didn't have money to get more. Never true 07/01/2023 Sex and Gender Information Value Date Recorded Sex Assigned at Not on file Gender Identity Not on file Sexual Orientation Not on file Job Start Date Occupation Industry Not on file Not on file Not on file documented as of this encounter Progress Notes * Pippa Ryan MD - 07/22/2023 2:41 PM EST Spoke to patient by phone, returning his call about his medication concerns. He reports he has had longstanding blurry vision and had hoped it would resolve with the med change, but it has not. He also reports that he has felt excessively "drugged up" for the past few months;this isn't worse with the new duloxetine but isn't better either. Reports mood is ok, lawsuit finally settled. PLAN: --d/c aripiprazole; I was planning to do anyway at next visit, but will go ahead and stop now to see if this helps --continue duloxetine 30 mg qday; agree with PCP suggestion to give longer trial at this dose before increasing --f/u with me 08/05/23 documented in this encounter Plan of Treatment Upcoming Encounters Date Type Department Care Team (Latest Contact Info) Description 08/05/2023 3:30 PM EST [facility] Psychiatry, [place] [address] [place] [address] Pippa Ryan MD [address] [place] [address] 10/10/2023 1:45 PM EST Hospital Encounter OR [facility], Operating Room [facility] [address] [place] [address] Fabián Caballero, DO [address] [place] [phone] 10/10/2023 1:45 PM EST - 10/10/2023 2:10 PM EST Surgery OR [facility], Operating Room [facility] [address] [place] [phone] Fabián Caballero, DO [address] [place] [phone] INJECTION SPINE LUMBAR OR SACRAL 12/05/2023 12:00 PM EDT Office Visit Sleep Disorders Ctr [facility] [address] [place] [phone] Herlinda Renee CRNP [address] [place] [address] 12/22/2023 12:40 PM EDT Office Visit Family Practice [facility] [address] [facility] [place] [address] Eamon Felder, DO [address] [facility] [place] [address] 01/16/2024 11:00 AM EDT Office Visit Cardiology, [facility] [address] [place] [address] Russ Morley PA-C [address] [place] [address] Scheduled Procedures Name Priority Associated Diagnoses Date/Ti me INJECTION SPINE LUMBAR OR SACRAL Lumbar radiculopathy 10/10/2023 1:45 PM EST ESOPHAGOGASTRODUODENOSCOPY ( EGD), FLEXIBLE, TRANSORAL, DIAGNOSTIC Recall Acid reflux Health Maintenance Due Date Last Done Comments Zoster Vaccines (2 of 3) 09/07/2012 07/13/2012 COVID-19 Vaccine ( season) 2023 07/28/2021, 07/02/2021, 11/16/2020, Additional history exists Albumin/Creatinine Ratio 06/18/2023 022, 10/19/2021, 01/04/2021, Additional history exists CKD PHOS USE SMARTSET 25615 06/18/202306/08, 08/17/2021, 03/14/2020, Additional history exists GFR 01/20/2024 07/22/2023, 05/09, 04/14/2023, Additional history exists CKD HGB USE SMARTSET 92538 05/26/202405/26, 06/18/2022, 10/17/2021, Additional history exists Depression Screening 05/26/2024 05/26/2023 HbA1c 06/06/2024 06/06/2023, 12/07, 02/12/2011, Additional history exists Jha's Esophagus Surveilance 07/24/2024 07/24/2021, 04/05/2020, 05/01/2016, Additional history exists DTaP,Tdap,and Td Vaccines (2 - Td or Tdap) 10/26/2025 10/26/2015, 06/13/2008 Pneumococcal Vaccine: 65+ Years Completed 10/26/2015, 06/13/2008 COLONOSCOPY-EVERY 5 YRS AGES 18-100 Discontinued 04/05/2020, 04/05/2020, 11/08/2014, Additional history exists Influenza Vaccine (FLU shot) Completed 05/26/2023, 06/21/2022, 07/26/2021, Additional history exists GARDASIL-HPV IMMUNIZATION SERIES Aged Out No longer eligible based on patient's age to complete this topic Hepatitis B Aged Out No longer eligi ble based on patient's age to complete this topic MENINGOCOCCAL (MENACTRA/MENVEO) Aged Out No longer eligible based on patient's age to complete this topic documented as of this encounter Medical Devices Not on filedocumented as of this encounter Advance Directives Latest Code Status on File Code Status Date Activated Date Inactivated Comments Full Code 07/07/2020 12:46 AM 07/12/2020 5:11 PM Thi s order reflects the patients wishes and were consensually agreed upon. Care Teams Truck Repair Service Estimator Relationship Specialty Start Date End Date Eamon Felder DO [facility] [place] [address] [address] PCP - General Family Medicine 08/25/18 documented as of this encounter
--- OUTSIDE RECORDS SUMMARY | 2023-07-30 05:15 | External Medical Summary | Summary of Care ---
Author Name Unknown Organization [facility] Address [address] [place] [address] Phone [phone] Care Team Providers Care Education Department Registrar Name Role Phone Eamon Felder DO Primary Care Provider [phone] Reason for Visit * Reason Onset Date Comments Advice 07/21/2023 Encounter Details Date Type Department Care Team (Late st Contact Info) Description 07/21/2023 Telephone Family Practice [facility] [address] [place] [address] Eamon Felder DO [address] [place] [address] Advice Allergies Active Allergy Reactions Criticality Noted Date [...] (FLONASE) 50 MCG/ACT nasal spray Administer 1 [place] into nostril in the morning. 0 Active Ipratropium [place] 0.06 % Nasal Solution (Atrovent)Indication s:Periodic breathing [...] every day 30 Capsule 6 07/15/2023 Active documented as of this encounter (statuses [...] mRNA, LNP-s, No Pre serve, 2-Dose Series (Pfizer) 07/28/2021,11/16/2020,10/17/2020 Pneumococcal Conjugate Vacc, 13 Valent (Prevnar) [...] money to buy more. Never true 07/01/20 23 Within the past 12 months, t he [...] on file documented as of this encounter Miscellaneous Notes * Telephone Encounter - Eamon Felder DO - 07/22/2023 12:20 PM EST Pt seen today * Telephone Encounter - Lexy Austin LPN - 07/21/2023 3:56 PM EST Patient is calling. He is in the process of changing psychiatric medicine. He is lightheaded. It isworse in the morning. Not dizzy. Denies chest pain. But can be unsteady. The room is not spinning. Has been having problems for months because of lightheadedness with the medicines. More brain fog than anything. Bp has been running 120 - 130 over 70 - 80 . Hr 75 to 87 and it is irregular, which is his normal for about 8 years now. He has checked his blood pressure cuff with ours and it corresponds. He said he is on abilify 5 mg 1/2 tablet daily This is not on his med list. He said it was ordered by Pippa Ryan. He is on duloxetine 30 mg daily Called [facility] office. Spoke to Rabia. She spoke to Dr. Felder. Informed to place patientin spot tomorrow. Done. Placed tomorrow with Dr. Felder at 10:20 p.m * Telephone Encounter - Daiana Fraire OSA - 07/21/2023 3:47 PM EST Patient would like to speak to provider or nurse Patient can be reached at [phone] documented in this encounter Plan of Treatment Upcoming Encounters Date Type Department Care Team (Latest Contact Info) Description 08/05/2023 3:30 PM EST Telemedicine Psychiatry, [place] [address] [place] [address] Pippa Ryan MD [address] [place] [address] 10/10/2023 1:45 PM EST Hospital Encounter [facility], Operating Room [facility] [address] [place] [phone] Fabián Caballero, [address] [place] [phone] 10/10/2023 1:45 PM EST - 10/10/2023 2:10 PM EST Surgery OR [facility], Operating Room [facility] [address] [place] [phone] Fabián Caballero, [address] [place] [phone] INJECTION SPINE LUMBAR OR SACRAL 12/05/2023 12:00 PM EDT Office Visit Sleep Disorders Ctr [facility] [place] [address] [place] [phone] Herlinda Renee CRNP [address] [place] [address] 12/22/2023 12:40 PM EDT Office Visit Family Practice Kenna Orozco [place] [address] [place] [address] Eamon Felder, DO [address] [facility] [place] [address] 01/16/2024 11:00 AM EDT Office Visit Cardiology, [facility] [address] [place] [address] Russ Morley PA-C [address] [place] [address] Scheduled Procedures Name Priority Associated Diagnoses Date/Ti me INJECTION SPINE LUMBAR OR SACRAL Lumbar radiculopathy 10/10/2023 1:45 PM EST ESOPHAGOGASTRODUODENOSCOPY ( EGD), FLEXIBLE, TRANSORAL, DIAGNOSTIC Recall Acid reflux Health Maintenance Due Date Last Done Comments Zoster Vaccines (2 of 3) 09/07/2012 07/13/2012 COVID-19 Vaccine ( season) 2023 07/28/2021, 07/02/2021, 11/16/2020, Additional history exists Albumin/Creatinine Ratio 06/18/20232 022, 10/19/2021, 01/04/2021, Additional history exists CKD PHOS USE SMARTSET 69359 06/18/202306/08, 08/17/2021, 03/14/2020, Additional history exists GFR 11/24/2023 05/26/2023, 08/0 03/2023, 11/06/2022, Additional history exists CKD HGB USE SMARTSET 09073 05/26/202405/26, 06/18/2022, 10/17/2021, Additional history exists Depression [...] and were consensually agreed upon. Care Teams Education Department Registrar Relationship Specialty Start Date End Date Eamon Felder DO [address] [place] [address] PCP - General Family Medicine 08/25/18 documented as of this encounter
--- OUTSIDE RECORDS SUMMARY | 2023-07-30 05:16 | External Medical Summary | Summary of Care ---
Author Name Unknown Organization [facility] Address [address] [place] [address] Phone [phone] Care Team Providers Care Disability Aide Name Role Phone AlfredEamon mitchell Primary Care Provider [phone] Encounter Details Date Type Department Care Team (Late st Contact Info) Description 07/15/2023 12:00 PM EST Telemedicine Psychiatry, [place] [address] [place] [address] Pippa Ryan MD [address] [place] [address] Major depressive disorder, recurrent episode, moderate (HCC)*; Generalized anxiety disorder Allergies Active Allergy Reactions Criticality Noted Date Comments Dust 04/15/2011 Upper resp sx Other Allergy (See Comments) 10/23/2012 Perfume that contains kiah root causes nasal congestion documented as of this encounter (statuses as of 07/16/2023) Medications Medication Sig Dispensed Refills Start Date End Date Status Vardenafil HCl (LEVITRA) 20 MG TabletIndications: Impotence of organic origin Take 1 Tab by mouth daily as needed for Erectile Dysfunction. 1 hour prior to intercourse, no more than 1 dose per day. 10 Tab 5 8 Active Clindamycin Phosphate 1 % SWABIndications:Ro sacea Apply to face daily as needed 60 Each 1 8 Active Additional Information Patient not taking.Informant: Patient, Reported on 07/15/2023 fluticasone (FLONASE) 50 MCG/ACT nasal spray Administer 1 [place] into nostril in the morning. 0 Active Ipratropium [place] 0.06 % Nasal Solution (Atrovent)Indicati ons:Periodic breathing instill 2 sprays into each nostril three times a day if needed for allergies 0 1 Active CPAP every night at bedtime. 0 Active Albuterol Sulfate HFA 108 (90 Base) MCG/ACT Inhalation Aerosol SolutionIndication s:Bronchitis, complicated INHALE 2 PUFFS EVERY 4 HOURS NEEDED FOR COUGH OR WHEEZING 18 g 1 3 Active B-12 1000 MCG Oral Tablet Take 1,000 mcg by mouth daily. 0 Active Tamsulosin HCl 0.4 MG Oral Capsule (Flomax)Indication s:BPH with obstruction/lower urinary tract symptoms TAKE 1 CAPSULE AT BEDTIME 90 Capsule 3 3 Active Pantoprazole Sodium 40 MG Oral Tablet Delayed Release (Protonix) Take 1 Tablet by mouth in the morning. 180 Tablet 3 3 Active Eliquis 2.5 MG Oral Tablet (Apixaban)Indicati ons:Chronic atrial fibrillation (HCC) TAKE 1 TABLET BY MOUTH TWICE A DAY 60 Tablet 3 3 Active Hyoscyamine Sulfate 0.125 MG Sublingual Tablet Sublingual (Levsin)Indication s:Irritable bowel syndrome One pill by mouth or under the tongue every 4 hours as needed for abdominal pain 40 Tablet 4 3 Active Metoprolol Succinate ER 25 MG Oral Tablet Extended Release 24 Hour (toPROL XL)Indications:Chr onic atrial fibrillation (HCC) 1/2 tablet daily. 90 Tablet 3 3 Active Doxycycline Monohydrate 50 MG Oral Capsule Take 50 mg by mouth daily. 30 Capsule 11 3 Active Memantine HCl 10 MG Oral Tablet (Namenda) 0 3 Active [place] 2 % External Pad (Erythromycin)Jackie cations:Rosacea apply topically TO FACE DAILY FOR ROSACEA as directed by prescriber 60 Each 5 3 Active Additional Information Patient not taking.Reported on 07/15/2023 Hydrocortisone (Perianal) 2.5 % External CreamIndications:H emorrhoids, external without complications Administer into the rectum 2 times a day. 28 g 1 10/04/202 3 Active Torsemide 10 MG Oral Tablet (Demadex)Indicatio ns:Chronic systolic congestive heart failure (HCC) TAKE 1 TABLET BY MOUTH NEEDED ONLY FOR SWELLING 90 Tablet 0 3 Active Additional Information Patient not taking.Reported on 07/15/2023 LORazepam 1 MG Oral Tablet (Ativan) Take 0.5 mg (1/2 pill) up to 4 times a day as needed for anxiety 60 Tablet 3 3 Active Peppermint Flavor Oil Use as directed. 0 Active Probiotic 250 MG Oral Capsule Take by mouth. 0 Active DULoxetine HCl 30 MG Oral Capsule Delayed Release Particles (Cymbalta) Weeks 1 and 2: take 30 mg (1 pill) every day 14 Capsule 0 3 Active DULoxetine HCl 60 MG Oral Capsule Delayed Release Particles (Cymbalta) Weeks 3: take 60 mg (1 pill) every day 30 Capsule 6 3 Active Venlafaxine HCl ER 150 MG Oral Capsule Extended Release 24 Hour (Effexor XR) Take 300 mg (2 pills) every day 180 Capsule 1 3 07/15/20 23 Discontinued documented as of this encounter (statuses as of 07/16/2023) Active Problems Problem Noted Date Diagnosed Date [...] as of this encounter (statuses as of 07/16/2023) Resolved Problems Problem Noted Date Diagnosed Date [...] as of this encounter (statuses as of 07/16/2023) Immunizations Name Administration Dates Next Due COVID-19 mRNA, LNP-s, No Pre serve, 2-Dose Series ([employer]) 07/28/2021,11/16/2020,10/17/2020 Pneumococcal Conjugate Vacc, 13 Valent (Prevnar) 10/26/2015 Pneumococcal Polysaccharide PPV23 (Pneumovax) 06/13/2008 SEASONAL INFLUENZA, PF, 6 M & Above, IM , (FLULAVAL or FLUZONE) 05/22/2018,06/25/2017 Season Influenza, Quad, PF, Adjuvanted, 65+ Yrs, IM (FLUAD) 05/31/2020 Seasonal Influenza, Quadriva lent Hd (Fluzone Hd) 05/26/2023,06/21/2022,07/26/2021 Seasonal Influenza, Quadriva lent, No Preserve, IM 06/27/2016,06/19/2015 06/27/2017 Seasonal Influenza, Split, I IV3, With Preserve, Inj 05/25/2014,06/09/2013,07/13/2012,10/01/2010,06/21/2009,07/23/2008,08/21/20 07 Seasonal Influenza, Trivalen t, Adjuvanted, 65+ [...] on file documented as of this encounter Patient Instructions * Patient Instructions* Pippa Ryan MD - 07/15/2023 11:42 PM EST Stop Effexor (venlafaxine). Start Cymbalta (duloxetine): --Weeks 1-2: Take Cymbalta (duloxetine) 30 mg (1 pill) every day. --Weeks 3 and on: Take Cymbalta (duloxetine) then 60 mg (1 pill) every day. Keep taking B12 1000 mcg every day. Keep taking melatonin 5 mg every night. Keep taking Ativan (lorazepam) 0.5 mg (1/2 pill) 4 times a day as needed for anxiety. Keep taking Abilify (aripiprazole) 2.5 mg (1/2 pill) every day. Follow-up with me on--08/05/23 at 3: 30pm --Call the clinic at [phone] or Bloxrer message me if you have any problems or questions, or you need to be seen sooner documented in this encounter Progress Notes * Pippa Ryan MD - 07/15/2023 12:00 PM EST After connecting to the patient via telephone, the patient was identified by name and date of . Patient was then informed that this was a telephone call only visit. The patient agreed to participate. Visit Disposition: Routine follow-up Total call duration was 26 minutes. 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 He was last seen in clinic on 07/01/2023. At that visit: --Lorazepam was continued --Melatonin was continued --B12 was continued Overall, how doing since last visit: not so good He had self-d/c'd his venlafaxine and aripiprazole prior his last visit. However, he realized he was feeling worse since then; and self-restarted low dose venlafaxine and aripirpazole. Would like to explore other medciation options, though; and we spent most of the visit discussing this. Patient describes mood as: 'depressed' and 'anxious'. Medication problems or side effects: no Just got back from [place] for visit to his son, really enjoyed it out there. But depression is still a big problem. 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 x Have you actually had thoughts about killing yourself? x 3) Have you been thinking about how you might do this? x Have you had these thoughts and had some intention of acting on them? E.g. I thought about taking an overdose but I never made a specific plan as to when where or howI would actually do it.and I would never go through with it. x Have you started to work out or worked out the details of how to kill yourself? Do you intend to carry out this plan? As opposed to I have the thoughts but I definitely will not do anything about them. x 6) Have you done anything, started to do anything, or prepared to do anything to end your life? Examples: Collected pills, obtained a gun, gave away valuables, wrote a will or suicide note, took out pills but didn't swallow any, held a gun but changed your mind or it was grabbed from your hand,went to the roof but didn't jump; or actually took pills, tried to shoot yourself, cut yourself, tried to hang yourself, etc. x REVIEW OF SYSTEMS: Review of systems including cardiac, pulmonary, constitutional, dermatologic, rheumatologic, GI, , MSK, psychiatric, and neurologic systems was negative except as in HPI HOME MEDICATIONS: B12 1000 mcg qday Melatonin 5 mg qhs Venlafaxine 37.5 mg qday (recently restarted) Aripiprazole 2.5 mg qday (recently restarted Lorazepam 0.5 mg QID PRN (last increased 12/23/2022): taking 2x a day Apixaban 2.5 mg BID Metoprolol ER 25 mg qday Allopurinol 200 mg qday Doxycycline 50 mg qday Fluticasone 50 mg IN qday Pantoprazole 40 mg BID Tamsulosin 0.4 mg qhs Albuterol inh PRN Clindamycin 1 % swab topically PRN5 Erythomycin 2 % pad topically PRN Ipratropium 0.06 % IN PRN Vardenafil 20 mg qday PRN Torsemide 10 mg qday Probiotic TID ALLERGIES: Review of patient's allergies indicates: Allergen Reactions Dust Upper resp sx Other Allergy (See Comments) Perfume that contains kiah root causes nasal congestion VITAL SIGNS: HR: BP: RR: SaO2: T: Weight: BMI: 06/11/23 82 05/26/23 84 05/07/23 86 04/14/23 92 06/11/23 120/90 05/26/23 130/76 05/07/23 122/74 04/14/23 118/68 05/26/23 18 05/07/23 18 04/14/23 16 04/07/23 16 06/11/23 36.8 C (98.3 F) 05/26/23 36.9 C (98.4 F) 05/07/23 37.1 C (98.7 F) 04/14/23 36.8 C (98.3 F) 06/11/23 111.1 kg (245 lb) 05/26/23 115.7 kg (255 lb) 05/07/23 108.9 kg (240 lb) 04/14/23 108.9 kg (240 lb) 06/11/23 34.17 kg/m 05/26/23 35.57 kg/m 05/07/23 33.47 kg/m 04/14/23 33.47 kg/m MENTAL STATUS EXAM: Overall: NAD Alertness: alert and awake Cooperation / participation: good Fluency: language fluent Comprehension: intact Conversation: appropriate Thought process: logical and linear Associations: intact Thought Content: PWD: no SI: no HI: none Hallucinations: none Delusions: none Mood: 'depressed' and 'anxious' Affect: full and mood-congruent Speech: rate normal, rhythm normal, volume normal, articulation normal Insight: fair to good Judgement: good IMPRESSION: The patient is a 82 year old man with: MDD, recurrent, moderate, with seasonal variation (worse in fall and winter) Generalized anxiety disorder 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 The patient has a long history of depression and anxiety since his early 20s. When he was a young man, he also had OCD- type thoughts (obsessive thoughts regarding sexual orientation), but it appearsthe OCD-type symptoms have not been a problem for many years. He has had severe depression, with active suicidal thoughts/plan in the past. The patient has had some cognitive concerns in the past, but neuropsychological testing 07/2019 showed normal functioning, consistent with patients estimated pre-morbid baseline; with the possible exception of attention and concentration, which were [place] at the airport and will average (of finding that could be accounted for by depression and anxiety). Brain MRI 07/12/2011 shows: --T1: mild generalized atrophy, greatest in temporoparietal areas --T2/FLAIR: scattered small bilateral WMH,L>R, extending up to cortex on L --GRE: no blood (images personally viewed and interpreted by me) He is currently not doing well, with ongoing significant symptoms; and would benefit from medication adjustment. He would benefit from: --Medication optimization --Psychotherapy --Exercise --Optimizing vitamin status --Continuing to avoid anticholinergic drugs, as they directly increase the risk of irreversible dementia, in addition to causing cognitive impairment during use --Continuing to avoid other medications with cognitive side effects --Continuing to avoid QT-prolonging drugs, especially given renal failure PLAN: MDD, generalized anxiety disorder, OCD: --Continue aripiprazole 2.5 mg qday. --Continue lorazepam 0.5 mg QID PRN. --Continue melatonin 5 mg qhs. --Start duloxetine: 30 mg qday x 2 weeks, then 60 mg qday. --Stop venlafaxine. --Future options: lurasidone, retrial of bupropion, trazodone, trazodone, gabapentin, lamotrigine, T3 --Mood tends to worsen in late July; will have him restart lightbox Jul 09 --Encourage psychotherapy; referred at [facility] and also gave [facility] teletherapy info 08/13/22 --Exercise: not doing currently; due to joint/BLE problems; would like to return to PT as that helped in past. Will ask PCP to refer to PT and f/u at next visit. --Past medication trials: Mirtazapine: caused excessive sedation Escitalopram Bupropion: unclear why stopped Buspirone 30 mg BID: at first thought it helped, but maybe caused strange dreams; helped anxiety and depresion in retrospect Lightbox: helped in past Memantine 10 mg BID: unclear if helped with mood or cognition, maybe worsened IBS (patient not sure) Venlafaxine XR 300 mg qday: helped depression, tolerated well (stopped because he wanted to see if his leg weakness got better off it) Aripiprazole 5 mg qday: took briefly, made too tired when taking along with venlafaxine; unclear iftook in am or at bedtime Sertraline: maybe took in past, doesn't recall Fluoxetine: maybe took in past, doesn't recall Cognitive disorder NOS: --Continue to avoid anticholinergic drugs, as they directly increase the risk of irreversible dementia, in addition to causing cognitive impairment during use --Neuropsychological testing 07/2019 showed normal functioning, consistent with patients estimated pre-morbid baseline; with the possible exception of attention and concentration, which were only at the lower limit of average (of finding that could be accounted for by depression and anxiety). HTN: --Avoid meds with adverse metabolic side effects A-fib: --On NOAC Vitamin B12 deficiency: --Continue B12 1000 mcg qday. Vitamin D deficiency: --25OH Vitamin D total 11/06/2015: low at 24 --Will recheck Chronic renal failure: --Per UpToDate for venlafaxine, "CrCl ?30 mL/minute: No dosage adjustment necessary. CrCl <30 mL/minute: Initial: 37.5 mg once daily; titrate cautiously, not to exceed 50% of the maximum recommended dose. Note: The band splitter recommends a 25% dose reduction in patients with CrCl 10 to 70 mL/minute (immediate release) and a 25% to 50% reduction with CrCl 30 to 89 mL/minute (extended release). However, due to high individual variability, the decrease in clearance of venlafaxine and its metabolite isonly evident in subjects with CrCl <30 mL/minute (Shad 1994); doses in patients with higher CrCls should be individualized based on efficacy and tolerability." Essential tremor: --Well-controlled, follows with Neuro QT prolongation: --AVOID QT-prolonging drugs, especially given renal failure Labs: --CBC 10/17/2021: WNL --BMP 05/26/23: eGFR low at 55; Creatinine high at 1.3; otherwise WNL --BMP 11/06/22: eGFR low at 44; Creatinine high at 1.6; BUN high at 32; otherwise WNL --LFTs 04/14/23: WNL --Albumin 06/18/22: WNL --TSH 10/17/2021: WNL at 2.74 --B12 11/06/22: low at 324 --Folate 07/10/2020: WNL at 10.1 --25-Hydroxy Vitamin D 06/18/22: low at 23 --ProBNP 04/14/23: high at 783, but improved from previous --PTH 06/18/22: high at 79 --TTE 12/26/22: he left ventricular cavity size is normal. The LV wall thickness is normal. The qualitative LV ejection fraction is 50-54% (normal). The right ventricular systolic function is normal as assessed by tricuspid annular plane systolic excursion (TAPSE) (normal >1.7 cm). The left atrium is moderately enlarged (42-48 ml/m^2). The right atrial size is normal. The left ventricular diastolic function is abnormal. Mild aortic valve regurgitation is present. Mild mitral regurgitationis present. Mild tricuspid regurgitation is present. There is mild pulmonary regurgitation. --EKG 08/07/2021: QTc Prolonged at 465 ms --Lipids 06/06/23: Tg WNL at 109; LDL WNL at 82; HDL low at 40 --A1c 06/06/23: 6.0 --EKG 11/22/22: QTc Prolonged at 467 ms Safety/crisis planning: --Reviewed safety/crisis planning --No access to guns. F/u: --Tues 08/05/23 at 3: 30pm --3 weeks Outpatient Adult Psychiatry Treatment Plan for visit 07/15/2023 Treatment plan was developed on 05/05/2023, treatment will continue to focus on goals listed there. Treatment update will occur when clinically indicated or by 11/05/2023. Crisis plan developed on 05/05/2023; see note of that date for details. --------- documented in this encounter Plan of Treatment Upcoming Encounters Date Type Department Care Team (Late st Contact Info) Description 08/05/2023 3:30 PM EST [facility] [address] [place] [address] Pippa Ryan MD [address] [place] [address] 12/05/2023 12:00 PM EDT Office Visit Sleep Disorders Ctr [facility] [address] [facility] [place] [id number] Herlinda Renee CRNP [address] [facility] [place] [address] 12/22/2023 12:40 PM EDT Office Visit Family Practice [facility] [address] [facility] [place] [address] Eamon Felder DO [address] [facility] [place] [address] 01/16/2024 11:00 AM EDT Office Visit Cardiology, [facility] [address] [place] [address] Russ Morley PA-C [address] [place] [address] Scheduled Procedures Name Priority Associated Diagnoses Date/Ti me INJECTION SPINE LUMBAR OR SACRAL Lumbar radiculopathy ESOPHAGOGASTRODUODENOSCOPY ( EGD), FLEXIBLE, TRANSORAL, DIAGNOSTIC Recall Acid reflux Health Maintenance Due Date Last Done Comments Zoster Vaccines (2 of 3) 09/07/2012 07/13/2012 COVID-19 Vaccine ( season) 2023 07/28/2021, 07/02/2021, 11/16/2020, Additional history exists Albumin/Creatinine Ratio 06/18/20232 022, 10/19/2021, 01/04/2021, Additional history exists CKD PHOS USE SMARTSET 25042 06/18/202306/08, 08/17/2021, 03/14/2020, Additional history exists GFR 11/24/2023 05/26/2023, 08/03/2023, 11/06/2022, Additional history exists CKD HGB USE SMARTSET 04156 05/26/202405/26, 06/18/2022, 10/17/2021, Additional history exists Depression [...] Not on filedocumented as of this encounter Visit Diagnoses Diagnosis Major depressive disorder, recurrent episode, moderate (HCC)- Primary Major depressive disorder, recurrent episode, moderate Generalized anxiety disorder documented in this encounter Advance Directives Latest Code Status on File Code Status Date Activated Date Inactivated Comments Full Code 07/07/2020 12:46 AM 07/12/2020 5:11 PM Thi s order reflects the patients wishes and were consensually agreed upon. Care Teams Disability Aide Relationship Specialty Start Date End Date Eamon Felder DO [address] [place] [address] PCP - General Family Medicine 08/25/18 documented as of this encounter
--- OUTSIDE RECORDS SUMMARY | 2023-07-30 05:16 | External Medical Summary ---
Author Name Unknown Address Unknown Organization [id number]:[facility] [address] [place] [id number] Laboratory Report Ordering Provider Test Date Status NIKOLAS AGUILERAConcha 07/22/2023 11:12:03 Final Observation Date Value Abnormality Reference (Units ) Status WBC, Total 07/22/2023 11:12:03 7.03 4.00-10.8 0 (K/uL) Final RBC 07/22/2023 11:12:03 5.04 4.50-5.25 (M/uL) Final Hemoglobin 07/22/2023 11:12:03 15.2 14.0-16.8 (g/dL) Final Anemia reflex testing trigge rs on a HGB < 12.0 for Females and HGB < 13.0 for Males in accordance with the WHO Anemia Guidelines
Anemia reflex testing triggers on a HGB < 12.0 for Females and HGB < 13.0 for Males in accordance with the WHO Anemia Guidelines HCT 07/22/2023 11:12:03 48.9 Above hi gh normal 40.0-48.4 (%) Final MCV 07/22/2023 11:12:03 97.0 82.0-99.5 (fL) Final MCH 07/22/2023 11:12:03 30.2 27.0-34.0 (pg) Final MCHC 07/22/2023 11:12:03 31.1 32.0-36.0 (g/dL) Final RDW 07/22/2023 11:12:03 14.5 11.5-15.5 (%) Final Platelets 07/22/2023 11:12:03 179 140-400 (K /uL) Final MPV 07/22/2023 11:12:03 10.8 6.6-11.1 ( fL) Final Nucleated erythrocytes/100 leukocytes [Ratio] in Blood by Automated count 07/22/2023 11:12:03 0 <=0 (/100 WBCs) Final Performing Location [facility] - [address] [facility] [address]
--- OUTSIDE RECORDS SUMMARY | 2023-07-30 05:16 | External Medical Summary | Summary of Care ---
Author Name Unknown Organization [facility] Address [address] [place] [address] Phone [phone] Care Team Providers Care Township Supervisor Name Role Phone Bradford Eamon Clark BUSTAMANTE Primary Care Provider [phone] Reason for Visit * Reason Comments Outpatient Testing Encounter Details Date Type Department Care Team (Late st Contact Info) Description 07/22/2023 11:20 AM EST Laboratory Laboratory [facility] [address] [place] [phone] [facility] Scenery [address] [place] [address] Dizziness; Blurry vision Allergies Active Allergy Reactions Criticality Noted Date [...] (FLONASE) 50 MCG/ACT nasal spray Administer 1 [place] into nostril in the morning. 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 Abnormal results [...] mRNA, LNP-s, No Pre serve, 2-Dose Series (test company) 07/28/2021,11/16/2020,10/17/2020 Pneumococcal Conjugate Vacc, 13 Valent (Prevnar) [...] on file documented as of this encounter Plan of Treatment Upcoming Encounters Date Type Department Care Team (Latest Contact Info) Description 08/05/2023 3:30 PM EST Telemedicine Psychiatry, [place] [address] [place] [address] Pippa Ryan MD [address] [place] [address] 10/10/2023 1:45 PM EST Hospital Encounter OR [facility], Operating Room [facility] [address] [place] [phone] Fabián Caballero, [address] [place] [phone] 10/10/2023 1:45 PM EST - 10/10/2023 2:10 PM EST Surgery OR [facility], Operating Room [facility] [address] [phone] Fabián Caballero, [address] [place] [phone] INJECTION SPINE LUMBAR OR SACRAL 12/05/2023 12:00 PM EDT Office Visit Sleep Disorders Ctr [facility] [address] [phone] Herlinda Renee CRNP [address] [place] [address] 12/22/2023 12:40 PM EDT Office Visit Family Practice [facility] [address] [place] [address] Eamon Felder, [address] [facility] [place] [address] 01/16/2024 11:00 AM EDT Office Visit Cardiology, [facility] [address] [place] [address] Russ Morley PA-C [address] [place] [address] Pending Results Name Type Priority Associated Diagnoses Date /Time CBC WITH WBC DIFFERENTIAL AND ANEMIA REFLEX WORKUP Lab Routine Dizziness Blurry vision 07/22/2023 11:12 AM EST COMPREHENSIVE METABOLIC PANEL Lab Routine Dizziness Blurry vision 07/22/2023 11:12 AM EST ANEMIA CBC Lab Routine Dizziness Blurry vision 07/22/2023 11:12 AM EST DIFFERENTIAL, AUTOMATED Lab Routine Dizziness Blurry vision 07/22/2023 11:12 AM EST ANEMIA REFLEX CHEMISTRY HOLD Lab Routine Dizziness Blurry vision 07/22/2023 11:12 AM EST Scheduled Procedures Name Priority Associated Diagnoses Date/Ti me INJECTION SPINE LUMBAR OR SACRAL Lumbar radiculopathy 10/10/2023 1:45 PM EST ESOPHAGOGASTRODUODENOSCOPY ( EGD), FLEXIBLE, TRANSORAL, DIAGNOSTIC Recall Acid reflux Health Maintenance Due Date Last Done Comments Zoster Vaccines (2 of 3) 09/07/2012 07/13/2012 COVID-19 Vaccine ( season) 2023 07/28/2021, 07/02/2021, 11/16/2020, Additional history exists Albumin/Creatinine Ratio 06/18/202306/18/2 022, 10/19/2021, 01/04/2021, Additional history exists CKD PHOS USE SMARTSET 89109 06/18/202306/08, 08/17/2021, 03/14/2020, Additional history exists GFR 11/24/2023 05/26/2023, 08/0 03/2023, 11/06/2022, Additional history exists CKD HGB USE SMARTSET 96173 05/26/202405/26, 06/18/2022, 10/17/2021, Additional history exists Depression [...] as of this encounter Visit Diagnoses Diagnosis Dizziness Dizziness and giddiness Blurry vision Other specified visual disturbances Lumbar radiculopathy Thoracic or lumbosacral neuritis or radiculitis, unspecified documented in this encounter Advance Directives Latest Code Status on File Code Status Date Activated Date Inactivated Comments Full Code 07/07/2020 12:46 AM 07/12/2020 5:11 PM Thi s order reflects the patients wishes and were consensually agreed upon. Care Teams Township Supervisor Relationship Specialty Start Date End Date Eamon Felder DO [facility] [place] [address] [address] PCP - General Family Medicine 08/25/18 documented as of this encounter
--- OUTSIDE RECORDS SUMMARY | 2023-07-30 05:16 | External Medical Summary | Summary of Care ---
Author Name Unknown Organization [facility] Address [address] [place] [address] Phone [phone] Care Team Providers Care Riverboat Captain Name Role Phone Bradford Eamon Clark BUSTAMANTE Primary Care Provider [phone] Reason for Visit * Reason Comments Follow Up Encounter Details Date Type Department Care Team (Late st Contact Info) Description 07/15/2023 11:30 AM EST Office Visit Cardiology, [facility] [address] [place] [address] Dimas Romero DO [address] [place] [address] Chronic systolic congestive heart failure (HCC)*; Chronic atrial fibrillation (HCC); LBBB (left bundle branch block); Gait instability Allergies Active Allergy Reactions Criticality Noted Date Comments Dust 04/15/2011 Upper resp sx Other Allergy (See Comments) 10/23/2012 Perfume that contains kiah root causes nasal congestion documented as of this encounter (statuses as of 07/15/2023) Medications Medication Sig Dispensed Refills Start Date [...] (FLONASE) 50 MCG/ACT nasal spray Administer 1 [place] into nostril in the morning. 0 Active Ipratropium [place] 0.06 % Nasal Solution (Atrovent)Indicati ons:Periodic breathing [...] 2 times a day. 28 g 1 3 Active Torsemide 10 MG Oral Tablet [...] Oral Capsule Take by mouth. 0 Active Venlafaxine HCl ER 150 MG Oral Capsule Extended Release 24 Hour (Effexor XR) Take 300 mg (2 pills) every day 180 Capsule 1 3 07/15/20 23 Discontinued documented as of this encounter (statuses as of 07/15/2023) Active Problems Problem Noted Date Diagnosed Date [...] as of this encounter (statuses as of 07/15/2023) Resolved Problems Problem Noted Date Diagnosed Date [...] as of this encounter (statuses as of 07/15/2023) Immunizations Name Administration Dates Next Due COVID-19 mRNA, LNP-s, No Pre serve, 2-Dose Series ([employer]) 07/28/2021,11/16/2020,10/17/2020 Pneumococcal Conjugate Vacc, 13 Valent (Prevnar) [...] 20 Q uit: 09/08/1979 Smokeless Tobacco: Never Tobacco Cessation:Counseling Given: Not Answered Comments:no passive smoke exposures, Quit at the age of 36. Alcohol [...] on file documented as of this encounter Last Filed Vital Signs Vital Sign Reading Time Taken Comments Blood Pressure 116/76 07/15/2023 11:32 AM EST Pulse 72 07/15/2023 11:32 AM EST Temperature - - Respiratory Rate 18 07/15/2023 11:32 AM EST Oxygen Saturation - - Inhaled Oxygen Concentration - - Weight 115.4 kg (254 lb 8 oz) 07/15/2023 11:32 A M EST Height - - Body Mass Index 35.5 05/07/2023 3:42 PM EDT documented in this encounter Progress Notes * Dimas Romero, - 07/15/2023 12:00 PM EST 07/15/2023 Cardiology Follow Up CHIEF COMPLAINT: Follow up, lower extremity edema, venous insufficiency, chronic atrial fibrillation, IVCD/incomplete left bundle branch SUBJECTIVE: Ricardo Gray is a 82 year old year old male who returns in close cardiology follow-up having most recently been seen by Russ SILVA of our practice in Jan, 2023. At that time his torsemide 10 milligram daily dose was reduced from 3 days per week to only on an as-needed basis.He feels like his dizziness has improved to a subtle degree since then. He is utilizing knee-high compression stockings with good effect. He reports having recently visited his son who lives in [place] and plans to return for another visit soon. 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 History of vertigo History of laparoscopic lysis of adhesions, closure of colostomy, colon resection 2011 GERD Pernicious anemia Depression IBS Enlarged prostate History of diverticulitis Chronic low back pain, sciatica. 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 10 Tab 5 fluticasone (FLONASE) 50 MCG/ACT nasal spray Administer 1 [place] into nostril in the morning. Ipratropium [place] 0.06 % Nasal Solution (Atrovent) instill 2 sprays into each nostril three timesa day if needed for allergies CPAP every night at bedtime. Albuterol Sulfate HFA 108 (90 Base) MCG/ACT Inhalation Aerosol Solution INHALE 2 PUFFS EVERY 4 HOURS NEEDED FOR COUGH OR WHEEZING 18 g 1 B-12 1000 MCG Oral Tablet Take 1,000 mcg by mouth daily. Tamsulosin HCl 0.4 MG Oral Capsule (Flomax) TAKE 1 CAPSULE AT BEDTIME 90 Capsule 3 Pantoprazole Sodium 40 MG Oral Tablet Delayed Release (Protonix) Take 1 Tablet by mouth in the morning. 180 Tablet 3 Eliquis 2.5 MG Oral Tablet (Apixaban) TAKE 1 TABLET BY MOUTH TWICE A DAY 60 Tablet 3 Hyoscyamine Sulfate 0.125 MG Sublingual Tablet Sublingual (Levsin) One pill by mouth or under the tongue every 4 hours as needed for abdominal pain 40 Tablet 4 Metoprolol Succinate ER 25 MG Oral Tablet Extended Release 24 Hour (toPROL XL) 1/2 tablet daily. 90Tablet 3 Doxycycline Monohydrate 50 MG Oral Capsule Take 50 mg by mouth daily. 30 Capsule 11 Memantine HCl 10 MG Oral Tablet (Namenda) Venlafaxine HCl ER 150 MG Oral Capsule Extended Release 24 Hour (Effexor XR) Take 300 mg (2 pills) every day (Patient taking differently: 37.5 once daily) 180 Capsule 1 Hydrocortisone (Perianal) 2.5 % External Cream Administer into the rectum 2 times a day. 28 g 1 LORazepam 1 MG Oral Tablet (Ativan) Take 0.5 mg (1/2 pill) up to 4 times a day as needed for anxiety 60 Tablet 3 Peppermint Flavor Oil Use as directed. Probiotic 250 MG Oral Capsule Take by mouth. Clindamycin Phosphate 1 % SWAB Apply to face daily as needed (Patient not taking: Reported on 07/15/2023) 60 Each 1 [place] 2 % External Pad (Erythromycin) apply topically TO FACE DAILY FOR ROSACEA as directed by prescriber (Patient not taking: Reported on 07/15/2023) 60 Each 5 Torsemide 10 MG Oral Tablet (Demadex) TAKE 1 TABLET BY MOUTH NEEDED ONLY FOR SWELLING (Patient not taking: Reported on 07/15/2023) 90 Tablet 0 No current facility-administered medications for this visit. OBJECTIVE/PHYSICAL EXAMINATION: BP 116/76 | Pulse 72 | Resp 18 | Wt 115.4 kg (254 lb 8 oz) | BMI 35.50 kg/m | BSA 2.4 m General: no acute distress and stated age Eyes: conjunctiva are pink and non-injected, sclera clear Neck: normal jugular venous pulse, no hepatojugular reflux Chest: normal shape and normal respiratory effort Lungs: clear to auscultation , no rales rhonchi or wheezing Cardiac Exam: - irregular rhythm, no murmurs Abdomen: abdomen soft, non-tender, no abnormal masses and no hepatosplenomegaly Musculoskeletal: no gait disturbance, no weakness Extremities: Trace to mild bilateral lower extremity ankle edema, knee-high compression stockings in place with good effect Neuro: grossly normal exam Psych: appropriate affect and insight. Data: TTecho performed : The left ventricular cavity size is normal. The [...] aortic valve regurgitation is present. Mild mitral regurgitation is present. Mild tricuspid regurgitation is present. There is mild pulmonary regurgitation. Lipid Panel Results: Results for orders placed or performed in visit on 06/06/23 LIPID PANEL WITH DIRECT LDL IF TG IS HIGH Result Value Ref Range Triglycerides 109 <=174 mg/dL Cholesterol 144 <200 mg/dL HDL Cholesterol 40 >39 mg/dL Non-HDL Cholesterol 104 <=159 mg/dL LDL Cholesterol 82 <=129 mg/dL ASSESSMENT / PLAN: 82 year old year old male ASSESSMENT: Systolic congestive heart failure. Chronic left bundle branch block. Volume status: Mild hypovolemia. Chronic atrial fibrillation. Rate controlled. Anticoagulated with renally dosed Eliquis. Asymptomatic ventricular ectopy. Fixed apical thinning nuclear stress test 2011 and 01/2018. Asymptomatic. 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 PLAN: Continue torsemide on a PRN basis. Continue metoprolol -same dose Continue Eliquis 2.5 mg BID, dose appropriate for age and renal function. DISPOSITION: Follow Up: Return in about 6 months (around 01/13/2024) for Clinic Visit. | For: Clinic Visit | Check-out note: Dr Walter or Peyman in 6 m Dimas Romero DO Cardiology, [place] [address] This chart was completed in part utilizing [employer] Speech Voice Recognition Software. Grammatical errors, random word insertions, prounoun errors, and incomplete sentences are an occasional consequence of this system due to software limitations, ambient noise, and hardware issues. Any formal questions or concerns about the content, text, or information contained within the body of this dictation should be directly addressed to the provider for clarification. documented in this encounter Nursing Notes * Eve Ellis LPN - 07/15/2023 11:32 AM EST Examination Room: 10 Name: Ricardo Gray Date of : (1940) Reason for Visit: Follow up Interim Hospitalization(s): Denies Problems/Concerns: Denies Chest Pain/SOB: Denies My [facility] is a way you can talk to your provider online through e-mail. Would you like to sign up? I can activate it for you? ALREADY ACTIVE Patient was instructed to not get up on the exam table until directed and assisted by their provider; patient is to remain seated in the chair/ wheelchair/ exam table for fall prevention and safety reasons. Patient is aware to have assistance to step down off exam table with personnel. Patient voiced full comprehension of instructions. documented in this encounter Plan of Treatment Upcoming Encounters Date Type Department Care Team (Late st Contact Info) Description 08/05/2023 3:30 PM EST Telemedicine Psychiatry, [place] [address] [place] [address] Pippa Ryan MD [address] [place] [address] 09/18/2023 2:00 PM EST Office Visit Nephrology, [facility] [address] [facility] [place] [address] Gi Castillo PA-C [address] [facility] [place] [address] 12/05/2023 12:00 PM EDT Office Visit Sleep Disorders Ctr [facility] [place] [address] [place] [phone] Herlinda Renee CRNP [address] [place] [address] 12/22/2023 12:40 PM EDT Office Visit Family Practice [facility] [address] [facility] [place] [address] Eamon Felder, [address] [facility] [place] [address] 01/16/2024 11:00 AM EDT Office Visit Cardiology, [facility] [address] [place] [address] Russ Morley PA-C [address] [place] [address] Scheduled Procedures Name Priority Associated Diagnoses Date/Ti me INJECTION SPINE LUMBAR OR SACRAL Lumbar radiculopathy ESOPHAGOGASTRODUODENOSCOPY ( EGD), FLEXIBLE, TRANSORAL, DIAGNOSTIC Recall Acid reflux Health Maintenance Due Date Last Done Comments Zoster Vaccines (2 of 3) 09/07/2012 07/13/2012 COVID-19 Vaccine ( season) 2023 07/28/2021, 07/02/2021, 11/16/2020, Additional history exists Albumin/Creatinine Ratio 06/18/20232 022, 10/19/2021, 01/04/2021, Additional history exists CKD PHOS USE SMARTSET 97401 06/18/202306/08, 08/17/2021, 03/14/2020, Additional history exists GFR 11/24/2023 05/26/2023, 0803/2023, 11/06/2022, Additional history exists CKD HGB USE SMARTSET 53189 05/26/202405/26, 06/18/2022, 10/17/2021, Additional history exists Depression [...] as of this encounter Visit Diagnoses Diagnosis Chronic systolic congestive heart failure (HCC)- Primary Chronic systolic heart failure Chronic atrial fibrillation (HCC) Atrial fibrillation LBBB (left bundle branch block) Other left bundle branch block Gait instability Abnormality of gait documented in this encounter Advance Directives Latest Code Status on File Code Status Date Activated Date Inactivated Comments Full Code 07/07/2020 12:46 AM 07/12/2020 5:11 PM Thi s order reflects the patients wishes and were consensually agreed upon. Care Teams Riverboat Captain Relationship Specialty Start Date End Date Eamon Felder DO [address] [place] [address] PCP - General Family Medicine 08/25/18 documented as of this encounter"
--- OUTSIDE RECORDS SUMMARY | 2023-07-30 05:16 | External Medical Summary ---
Author Name Unknown Address Unknown Organization K01:[facility] - [address] [facility] [place] [address] Laboratory Report Ordering Provider Test Date Status KENNY AGUILERA 07/22/2023 11:12:03 Final Observation Date Value Abnormality Reference (Units ) Status SYNC LEUKOCYTES IN BLOOD BY AUTOMATED COUNT 07/22/2023 11:12:03 7.03 4.00-10.80 (K/uL) Final Segs 07/22/2023 11:12:03 64.7 40.0-75.0 (%) Final Lymphs % 07/22/2023 11:12:03 19.2 18.0-42.0 (%) Final Monos 07/22/2023 11:12:03 11.0 1.0-11.0 (%) Final Eosinophils 07/22/2023 11:12:03 4.4 0.0-6.0 (%) Final Basos 07/22/2023 11:12:03 0.6 0.0-2.0 (%) Final Immature Granulocyte, Percent 07/22/2023 11:12:03 0.1 0.0-2.0 (%) Final Absolute Segs 07/22/2023 11:12:03 4.55 1.80-7.70 (K/uL) Final Lymphs, absolute 07/22/2023 11:12:03 1.35 1.00-4.80 (K/ul) Final Monos, Abs 07/22/2023 11:12:03 0.77 0.00-1.10 (K/uL) Final Eos, Abs 07/22/2023 11:12:03 0.31 0.00-0.70 (K/uL) Final Basos, Abs 07/22/2023 11:12:03 0.04 0.00-0.20 (K/uL) Final Immature Granulocytes, Number 07/22/2023 11:12:03 0.01 0.00-0.20 (K/uL) Final Performing Location [facility] [place] [address] [facility] [address]
--- OUTSIDE RECORDS SUMMARY | 2023-07-30 05:16 | External Medical Summary ---
Author Name Unknown Address Unknown Organization K09:[facility] - [address] [place] [address] Laboratory Report Ordering Provider Test Date Status KENNY AGUILERA 07/22/2023 11:12:03 Final Observation Date Value Abnormality Reference (Units ) Status BUN 07/22/2023 11:12:03 28 Above high normal 6-20 (mg/dL) Final Creatinine 07/22/2023 11:12:03 1.6 Above high normal 0.6-1.2 (mg/dL) Final Glomerular filtration rate/1.73 sq M.predicted [Volume Rate/Area] in Serum, Plasma or Blood by Creatinine-based formula (CKD-EPI) 07/22/2023 11:12:03 45 Below low normal >=60 (mL/min) Final eGFR is calculated based on the CKD-EPI 2020 equation SODIUM 07/22/2023 11:12:03 141 135-146 (m mol/L) Final Potassium 07/22/2023 11:12:03 4.0 3.5-5.1 (m mol/L) Final Cl 07/22/2023 11:12:03 105 98-107 (mm ol/L) Final CO2 07/22/2023 11:12:03 26 22-32 (mmo l/L) Final Anion gap 07/22/2023 11:12:03 10 7-15 (mmol /L) Final Glucose 07/22/2023 11:12:03 96 70-120 (mg /dL) Final Albumin 07/22/2023 11:12:03 3.9 3.8-5.0 (g /dL) Final AST (Aspartate aminotransferase) 07/22/2023 11:12:03 28 10-50 (U/L) Final Alk Phos 07/22/2023 11:12:03 106 35-130 (U/ L) Final Bilirubin, Total 07/22/2023 11:12:03 0.8 <=1 .2 (mg/dL) Final Calcium 07/22/2023 11:12:03 9.3 8.4-10.2 ( mg/dL) Final Protein 07/22/2023 11:12:03 6.7 6.0-8.3 (g /dL) Final ALT (Alanine aminotransferase) 07/22/2023 11:12:03 21 10-50 (U/L) Final Performing Location [facility] [address] [place] [address]
--- OUTSIDE RECORDS SUMMARY | 2023-07-30 05:16 | External Medical Summary | Summary of Care ---
Author Name Unknown Organization [facility] Address [address] [place] [address] Phone [phone] Care Team Providers Care Crm Business Analyst Name Role Phone Eamon Felder DO Primary Care Provider [phone] Reason for Visit * Reason Comments Re-Check Encounter Details Date Type Department Care Team (Late st Contact Info) Description 07/22/2023 10:20 AM EST Office Visit Family Practice [facility] [address] [facility] [place] [address] Eamon Felder DO [address] [place] [address] Dizziness*; Blurry vision Allergies Active Allergy Reactions Criticality [...] 5 04/24/2018 Active Clindamycin Phosphate 1 % SWABIndications:Ro sacea Apply to face daily as needed 60 Each 1 08/19/2018 Active fluticasone (FLONASE) 50 MCG/ACT nasal spray Administer 1 [place] into nostril in the morning. 0 Active Ipratropium [place] 0.06 % Nasal Solution (Atrovent)Indicati ons:Periodic breathing [...] 01/31/2023 Active Eliquis 2.5 MG Oral Tablet (Apixaban)Indicati [...] 06/02/2023 Active Mckinley 2 % External Pad (Erythromycin)Jackie cations:Rosacea apply topically TO FACE DAILY FOR ROSACEA as directed by prescriber 60 Each 5 06/11/2023 Active Hydrocortisone (Perianal) 2.5 % External CreamIndications:H emorrhoids, external without complications Administer into the rectum 2 times a day. 28 g 1 06/11/2023 Active Torsemide 10 MG Oral Tablet (Demadex)Indicatio [...] mg dose 16 Capsule 0 07/22/2023 Active DULoxetine HCl 30 MG Oral Capsule Delayed Release Particles (Cymbalta) Weeks 1 and 2: take 30 mg (1 pill) every day 14 Capsule 0 07/15/2023 3 Discontinue d(Refill) documented as of this encounter (statuses as [...] mRNA, LNP-s, No Pre serve, 2-Dose Series ([employer]) 07/28/2021,11/16/2020,10/17/2020 Pneumococcal Conjugate Vacc, 13 Valent (Prevnar) 10/26/2015 Pneumococcal Polysaccharide PPV23 (Pneumovax) 06/13/2008 SEASONAL INFLUENZA, PF, 6 M & Above, IM , (FLULAVAL or FLUZONE) 05/22/2018,06/25/2017 Season Influenza, Quad, PF, Adjuvanted, 65+ Yrs, IM (FLUAD) 05/31/2020 Seasonal Influenza, Quadriva lent Hd (Fluzone Hd) 05/26/2023,06/21/2022,07/26/2021 Seasonal Influenza, Quadriva lent, No Preserve, IM 06/27/2016,06/19/2015 06/27/2017 Seasonal Influenza, Split, I IV3, With Preserve, Inj 05/25/2014,06/09/2013,07/13/2012,1001/2010,06/21/2009,07/23/2008,08/21/20 07 Seasonal Influenza, Trivalen t, Adjuvanted, 65+ [...] Sign Reading Time Taken Comments Blood Pressure 132/80 07/22/2023 10:26 AM EST Pulse 76 07/22/2023 10:26 AM EST Temperature 36.5 C (97.7 F) 07/22/2023 10:[address] Respiratory Rate - - Oxygen Saturation - - Inhaled Oxygen Concentration - - Weight 116.3 kg (256 lb 8 oz) 07/22/2023 10:26 A M EST Height - - Body Mass Index 35.77 05/07/2023 3:42 PM EDT documented in this encounter Progress Notes * Eamon Felder, - 07/22/2023 10:47 AM EST Subjective: Ricardo Gray is a 82 year old male. Chief Complaint Patient presents with Re-Check HPI: In the morning he is feeling off. This has been for awhile. Lately there is some extra blurriness/ We talked about his meds and when he takes them. He uses his CPAP regularly, even if he goes back to bed. Some blurry vision this morning. Still blurriness right now. Does not feel dehydrated. He was started on Cymbalta recently. He tapered down off of Effexor. He is on a taper up of Cymbalta. He stoppedEfffexor around 2 weeks ago. When he ruminates he starts praying. We discussed potential side effects with other medicaions. Some swelling in his ankles this morning but did not take torsemide yet. PMHx, meds, and allergies reviewed Patient Active Problem List Diagnosis Code Adjustment disorder with depressed mood F43.21 Rosacea L71.9 Lumbar spondylosis with myelopathy M47.16 Pernicious anemia D51.0 Vitamin D deficiency E55.9 ADVANCE DIRECTIVE INFORMATION NONALLERGIC RHINITIS J31.0 ED N52.9 History of colonic polyps Z86.010 Irritable bowel syndrome K58.9 MYRON (obstructive sleep apnea) G47.33 Warfarin anticoagulation Z79.01 Family history of colon cancer Z80.0 Dyslipidemia, goal LDL below 100 E78.5 Essential tremor G25.0 MARIA C (generalized anxiety disorder) F41.1 Chronic atrial fibrillation ([facility]) I48.20 Major depressive disorder, recurrent episode, moderate ([facility]) F33.1 Periodic breathing R06.3 Hypersomnolence disorder G47.10 Periodic limb movement disorder (PLMD) G47.61 Stage 3b chronic kidney disease N18.32 Chronic systolic congestive heart failure ([facility]) I50.22 Sacroiliitis ([facility]) M46.1 HPTH (hyperparathyroidism) ([facility]) E21.3 Prediabetes R73.03 Current Outpatient Medications Medication Sig Dispense Refill Hydrocortisone (Perianal) 2.5 % External Cream Administer into the rectum 2 times a day. 28 g 1 Vardenafil HCl (LEVITRA) 20 MG Tablet Take 1 Tab by mouth daily as needed for Erectile Dysfunction.1 hour prior to intercourse, no more than 1 dose per day. 10 Tab 5 Clindamycin Phosphate 1 % SWAB Apply to face daily as needed 60 Each 1 fluticasone (FLONASE) 50 MCG/ACT nasal spray Administer 1 [place] into nostril in the morning. Ipratropium [place] 0.06 % Nasal Solution (Atrovent) instill 2 [...] Memantine HCl 10 MG Oral Tablet (Namenda) Mckinley 2 % External Pad (Erythromycin) apply topically TO FACE DAILY FOR ROSACEA as directed by prescriber 60 Each 5 Torsemide 10 MG Oral Tablet (Demadex) TAKE 1 TABLET BY MOUTH NEEDED ONLY FOR SWELLING (Patient not taking: Reported on 07/15/2023) 90 Tablet 0 LORazepam 1 MG Oral Tablet (Ativan) Take 0.5 mg (1/2 pill) up to 4 times a day as needed for anxiety 60 Tablet 3 Peppermint Flavor Oil Use as directed. Probiotic 250 MG Oral Capsule Take by mouth. DULoxetine HCl 30 MG Oral Capsule Delayed Release Particles (Cymbalta) Weeks 1 and 2: take 30 mg (1pill) every day 14 Capsule 0 DULoxetine HCl 60 MG Oral Capsule Delayed Release Particles (Cymbalta) Weeks 3: take 60 mg (1 pill)every day 30 Capsule 6 No current facility-administered medications for this visit. Review of patient's allergies indicates: Allergen Reactions Dust Upper resp sx Other Allergy (See Comments) Perfume that contains kiah root causes nasal congestion OBJECTIVE: BP 132/80 | Pulse 76 | Temp 36.5 C (97.7 F) | Wt 116.3 kg (256 lb 8 oz) | BMI 35.77 kg/m | BSA 2.41 m Estimated body mass index is 35.77 kg/m as calculated from the following: Height as of 05/07/23: 1.803 m (5' 11"). Weight as of this encounter: 116.3 kg (256 lb 8 oz). BP Readings from Last 3 Encounters: 07/22/23 132/80 07/15/23 116/76 06/11/23 120/90 Wt Readings from Last 3 Encounters: 07/22/23 116.3 kg (256 lb 8 oz) 07/15/23 115.4 kg (254 lb 8 oz) 06/11/23 111.1 kg (245 lb) ROS: Negative except for above PHYSICAL EXAM: General: alert, healthy, and no distress Head: Normocephalic, No masses, lesions, tenderness or abnormalities Heart: no murmur, no gallops, and irregularly irregular Lungs: chest symmetric with normal AP diameter, no chest deformities noted, no chest wall tenderness, lungs clear to auscultation ASSESSMENT/Plan Dizziness (Primary) - CBC WITH WBC DIFFERENTIAL AND ANEMIA REFLEX WORKUP; Future; Expected date: 07/22/2023 - COMPREHENSIVE METABOLIC PANEL; Future; Expected date: 07/22/2023 Blurry vision - CBC WITH WBC DIFFERENTIAL AND ANEMIA REFLEX WORKUP; Future; Expected date: 07/22/2023 - COMPREHENSIVE METABOLIC PANEL; Future; Expected date: 07/22/2023 Other orders - DULoxetine HCl 30 MG Oral Capsule Delayed Release Particles (Cymbalta); Take 1 pill daily for 30 days before stepping up to 60 mg dose I spent a total of 30 minutes on the date of service in preparation, delivery, and documentation ofthe care provided to this patient, excluding any time spent on the performance of any procedure or separately billable services. Will push first run of Cymbalta 30 mg to 30 days before stepping up dose. If blurriness persists itmay be worth holding off on increase altogether. I'm so glad he settled his lawsuit and can move forward. I do think this will help his mood. The above was discussed and understanding was expressed. Eamon Felder DO documented in this encounter Nursing Notes * Ivette Perdomo CMA - 07/22/2023 10:22 AM EST He is here to discuss his medications. He thinks they are what's causing his symptoms. He says it feels like he is drunk. Its worst in the morning and gets better as the day goes on. He didn't take any of his meds today at all. Patient isn't taking several medications. Left med list to be reconciled by physician. documented in this encounter Plan of Treatment Upcoming Encounters Date Type Department Care Team (Latest Contact Info) Description 08/05/2023 3:30 PM EST Telemedicine Psychiatry, [place] [address] [place] [address] Pippa Ryna MD [address] [place] [address] 10/10/2023 1:45 PM EST Hospital Encounter OR [facility], Operating Room [facility] [address] [place] [phone] Fabián Caballero, [address] [place] [phone] 10/10/2023 1:45 PM EST - 10/10/2023 2:10 PM EST Surgery OR [facility], Operating Room [facility] [address] [place] [phone] Fabián Caballero, [address] [place] [phone] INJECTION SPINE LUMBAR OR SACRAL 12/05/2023 12:00 PM EDT Office Visit [facility] Disorders Ctr [facility] [place] [address] [phone] Herlinda Renee CRNP [address] [place] [place] [address] 12/22/2023 12:40 PM EDT Office Visit [facility] [place] [address] [place] [address] Eamon Felder, DO [address] [place] [address] 01/16/2024 11:00 AM EDT Office Visit Cardiology, [facility] [address] [place] [address] Russ Morley PA-C [address] [place] [address] Pending Results Name Type Priority Associated Diagnoses Date /Time CBC WITH WBC DIFFERENTIAL AND ANEMIA REFLEX WORKUP Lab Routine Dizziness Blurry vision 07/22/2023 11:12 AM EST COMPREHENSIVE METABOLIC PANEL Lab Routine Dizziness Blurry vision 07/22/2023 11:12 AM EST Scheduled Orders Name Type Priority Associated Diagnoses Orde r Schedule CBC WITH WBC DIFFERENTIAL AND ANEMIA REFLEX WORKUP Lab Routine Dizziness Blurry vision Expected: 07/22/2023 (Approximate), Expires: 07/22/2024 COMPREHENSIVE METABOLIC PANEL Lab Routine Dizziness Blurry vision Expected: 07/22/2023 (Approximate), Expires: 07/21/2024 Scheduled Procedures Name Priority Associated Diagnoses Date/Ti [...] Additional history exists CKD PHOS USE SMARTSET 31680 06/18/202306/08, 08/17/2021, 03/14/2020, Additional history exists GFR 11/24/2023 05/26/2023, 08/0 03/2023, 11/06/2022, Additional history exists CKD HGB USE SMARTSET 17348 05/26/202405/26, 06/18/2022, 10/17/2021, Additional history exists Depression [...] as of this encounter Visit Diagnoses Diagnosis Dizziness- Primary Dizziness and giddiness Blurry vision Other specified visual disturbances Lumbar radiculopathy Thoracic or lumbosacral neuritis or radiculitis, unspecified documented in this encounter Advance Directives Latest Code Status on File Code Status Date Activated Date Inactivated Comments Full Code 07/07/2020 12:46 AM 07/12/2020 5:11 PM Thi s order reflects the patients wishes and were consensually agreed upon. Care Teams Crm Business Analyst Relationship Specialty Start Date End Date Eamon Felder [place] [address] PCP - General Family Medicine 08/25/18 documented as of this encounter
--- OUTSIDE RECORDS SUMMARY | 2023-07-30 05:16 | External Medical Summary | Summary of Care ---
Author Name Unknown Organization [facility] Address [address] [place] [address] Phone [phone] Care Team Providers Care Licensed Mortician Name Role Phone DennisEamon ibrahim Primary Care Provider [phone] Reason for Visit * Reason Onset Date Comments Appointment 07/16/2023 Encounter Details Date Type Department Care Team (Late st Contact Info) Description 07/16/2023 Telephone Interventional [facility], [facility] [address] [place] [address] Services, Scheduling [address] [place] [address] Appointment Allergies Active Allergy Reactions Criticality Noted Date [...] as needed 60 Each 1 08/19/2018 Active Additional Information Patient not taking.Informant: Patient, Reported on 07/15/2023 fluticasone (FLONASE) 50 MCG/ACT nasal spray Administer 1 [place] into nostril in the morning. 0 Active Ipratropium [place] 0.06 % Nasal Solution (Atrovent)Indication s:Periodic breathing [...] by prescriber 60 Each 5 06/11/2023 Active Additional Information Patient not taking.Reported on 07/15/2023 Hydrocortisone (Perianal) 2.5 % External CreamIndications:Hem orrhoids, [...] pill) every day 14 Capsule 0 07/15/2023 Active DULoxetine HCl 60 MG Oral Capsule [...] mRNA, LNP-s, No Pre serve, 2-Dose Series ([employer]) 07/28/2021,11/16/2020,10/17/2020 Pneumococcal Conjugate Vacc, 13 Valent (Prevnar) [...] encounter Miscellaneous Notes * Telephone Encounter - Delia Lockwood OSA - 07/16/2023 11:42 AM EST Pt calling in to see about scheduling his next injection. I see it is there but not scheduled. Pt would like an update as to when you can do the injection. documented in this encounter Plan of Treatment Upcoming Encounters Date Type Department Care Team (Late st Contact Info) Description 08/05/2023 3:30 PM EST [facility] Psychiatry, [place] [address] [place] [address] Pippa Ryan MD [address] [place] [address] 12/05/2023 12:00 PM EDT [facility] [address] [place] [phone] Herlinda Renee CRNP [address] [place] [address] 12/22/2023 12:40 PM EDT Office Visit Family Practice [facility] [address] [place] [address] Eamon Felder, DO [address] [place] [address] 01/16/2024 11:00 AM EDT Office Visit Cardiology, [facility] [place] [address] [place] [address] Russ Morley PA-C [address] [place] [address] Scheduled Procedures Name Priority Associated Diagnoses Date/Ti me INJECTION SPINE LUMBAR OR SACRAL Lumbar radiculopathy ESOPHAGOGASTRODUODENOSCOPY ( EGD), FLEXIBLE, TRANSORAL, DIAGNOSTIC Recall Acid reflux Health Maintenance Due Date Last Done Comments Zoster Vaccines (2 of 3) 09/07/2012 07/13/2012 COVID-19 Vaccine ( season) 2023 07/28/2021, 07/02/2021, 11/16/2020, Additional history exists Albumin/Creatinine Ratio 06/18/20232 022, 10/19/2021, 01/04/2021, Additional history exists CKD PHOS USE SMARTSET 14746 06/18/202306/08, 08/17/2021, 03/14/2020, Additional history exists GFR 11/24/2023 05/26/2023, 08/0 03/2023, 11/06/2022, Additional history exists CKD HGB USE SMARTSET 33495 05/26/202405/26, 06/18/2022, 10/17/2021, Additional history exists Depression [...] and were consensually agreed upon. Care Teams Licensed Mortician Relationship Specialty Start Date End Date Eamon Felder DO [address] [place] [address] PCP - General Family Medicine 08/25/18 documented as of this encounter
--- OUTSIDE RECORDS SUMMARY | 2023-07-30 05:17 | External Medical Summary | Summary of Care ---
Author Name Unknown Organization [facility] Address [address] [place] [address] Phone [phone] Care Team Providers Care Design Printing Machine Setter Name Role Phone Bradford Eamon Clark BUSTAMANTE Primary Care Provider [phone] Reason for Visit * Reason Onset Date Comments Appointment Canceled 06/05/2023 HD Encounter Details Date Type Department Care Team Description 06/05/2023 Telephone Family Practice [facility] [address] [facility] [place] [address] Carolann Hoyt MD [address] [place] [address] Appointment Canceled (HD) Allergies Active Allergy Reactions Severity Noted Date Comments Dust 04/15/2011 Upper resp sx Other Allergy (See Comments) 10/23/2012 Perfume that contains kiah root causes nasal congestion documented as of this encounter (statuses as of 06/06/2023) Medications Medication Sig Dispensed Refills Start Date [...] (FLONASE) 50 MCG/ACT nasal spray Administer 1 [place] into nostril in the morning. 0 Active Ipratropium [place] 0.06 % Nasal Solution (Atrovent)Indicati ons:Periodic breathing instill 2 sprays into each nostril three times a day if needed for allergies 0 10/24/2020 Active Mckinley 2 % External Pad (Erythromycin)Jackie cations:Rosacea apply topically TO FACE DAILY FOR ROSACEA as directed by prescriber 60 Each 1 03/26/2021 Active CPAP every night at bedtime. 0 [...] the morning. 180 Tablet 3 01/31/2023 Active Torsemide 10 MG Oral Tablet (Demadex)Indicatio ns:Chronic systolic congestive heart failure (HCC) Take one tablet by mouth only as needed. 60 Tablet 3 01/31/2023 Active Eliquis 2.5 MG [...] mouth daily. 30 Capsule 11 04/21/2023 Active LORazepam 1 MG Oral Tablet (Ativan) Take 0.5 mg (1/2 pill) up to 4 times a day as needed for anxiety 60 Tablet 3 05/06/2023 Active Venlafaxine HCl ER 150 MG Oral Capsule Extended Release 24 Hour (Effexor XR) Take 300 mg (2 pills) every day 180 Capsule 1 05/06/2023 3 Discontinue d(Refill) documented as of this encounter (statuses as of 06/06/2023) Active Problems Problem Noted Date Sacroiliitis 11/06/2022 HPTH (hyperparathyroidism) 11/06/2022 Chronic systolic congestive heart failur e 10/17/2021 Stage 3b chronic kidney disease 09/18/19 21 Overview: Per CKD protocol Periodic breathing 07/27/2020 Hypersomnolence disorder 07/27/2020 Periodic limb movement disorder (PLMD) 1 09/26/2019 Major depressive disorder, recurrent epi sode, moderate 09/10/2019 Chronic atrial fibrillation 11/19/2018 MARIA C (generalized anxiety disorder) 05/22 Essential tremor 03/04/2017 Dyslipidemia, goal LDL below 100 016 Family history of colon cancer 4 Warfarin anticoagulation 01/27/2013 MYRON (obstructive sleep apnea) [...] Pernicious anemia 08/05/2008 Lumbar spondylosis with myelopathy 08/21 Rosacea 05/28/2007 Adjustment disorder with depressed mood 04/10/2007 documented as of this encounter (statuses as of 06/06/2023) Resolved Problems Problem Noted Date Resolved Date Kidney disease, chronic, stage IV (GFR 15-29 ml/ min) 10/17/2021 10/17/2021 Major depressive disorder, recurrent episode 03/14/2020 Fatigue 09/12/2016 11/19/2018 Kidney disease, chronic, stage III (GFR 30-59 ml /min) 11/21/2014 09/21/2020 Overview: Per CKD protocol #1 Pure hypercholesterolemia 10/12/20132018 Screening for cholesterol level 09/27/2013 09/24/2016 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 Repeat 2019 at the same time as colonoscopy 04/01/13: EGD short segment Jha's esophagus, repeat 03/2016, Dr. Lee 2009: EGD clear 2007: Jha's esophagus Abnormal results of liver function studies 11/2409/24/2016 Anticoagulated on Coumadin 11/22/201109/24 Left bundle branch block 11/22/2011 012 Kidney disease, chronic, stage III (GFR 30-59 ml /min) 11/22/2011 12/13/2011 Gastro-esophageal reflux 11/22/2011 017 Diverticulitis of colon 11/21/2011 11/20/19 19 Near syncope 07/01/2011 12/13/2011 Near syncope 05/27/2011 11/19/2018 Other premature beats 10/30/2010 12/13/2011 Atrial fibrillation 10/01/2010 11/19/2018 Other premature beats 06/21/2010 12/13/2011 Preoperative cardiovascular examination 06/21/20 10 12/13/2011 Chronic diarrhea 04/21/2010 11/19/2018 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 11/20/19 19 TRIGGER THUMB 06/13/2008 09/24/2016 Family history of diabetes mellitus 01/18/2008 11/19/2018 DISC DIS NEC-OF LS SPINE 08/21/2007 017 Family history of cardiovascular disease 007 11/19/2018 Irritable bowel syndrome 04/10/2007 012 Dermatophytosis of nail 04/10/2007 09/24/19 17 Esophageal reflux 09/24/2016 Chronic sinusitis 09/24/2016 Polyp of nasal sinus 11/19/2018 documented as of this encounter (statuses as of 06/06/2023) Immunizations Name Administration Dates Next Due COVID-19 [...] drink = 0.6 oz pur e alcohol) Food Insecurity Answer Date Recorded Within the past 12 months, y ou worried that your food would run out before you got money to buy more. Never true 10/30/2020 Within the past 12 months, t he food you bought just didn't last and you didn't have money to get more. Never true 10/30/2020 Sex Assigned at Date Recorded Not on file Job Start Date Occupation Industry Not on file Not on file Not on file documented as of this encounter Miscellaneous Notes * Telephone Encounter - Eamon Felder DO - 06/06/2023 12:30 PM EDT Awesome, thank you Pippa! I'll keep this open and make sure we follow-up if he doesn't come in today * Telephone Encounter - Lorrie Jiménez - 06/06/2023 10:28 AM EDT Called pt and left message for him to come in today to get labs done so provider can move forward with medication at pharmacy * Telephone Encounter - Eamon Felder DO - 06/05/2023 3:39 PM EDT I see that a plan was made in the hospital around [facility] but am uncertain of details. Thanks for helping Ricardo! * Telephone Encounter - Lorrie Jiménez - 06/05/2023 11:43 AM EDT Spoke with pt to confirm appt 06/05 HD// pt stated he would have to reschedule, seeing medical and scientific illustrator today. Pt rescheduled with PCP. Pt also advised BELA Stewart is saying scripts from [facility] have not been authorized yet. [facility] ph# [phone] Please follow up with pt about meds at [phone] documented in this encounter Plan of Treatment Upcoming Encounters Date Type Specialty Care Team Description 06/11/2023 Office Visit Family Medicine Eamon Felder DO [address] [place] [address] 06/30/2023 Telemedicine Psychiatry Pippa Ryan MD [address] [facility] [place] [address] 08/11/2023 Office Visit Cardiology Russ Morley PA-C [address] [place] [address] 09/18/2023 Office Visit Nephrology Gi Castillo PA-C [address] [place] [address] 12/05/2023 Office Visit Sleep Disorders Herlinda Renee CRNP [address] [place] [address] 12/22/2023 Office Visit Family Medicine Emaon Felder DO [address] [place] [address] Scheduled Procedures Name Priority Associated Diagnoses Date/Ti me ESOPHAGOGASTRODUODENOSCOPY ( EGD), FLEXIBLE, TRANSORAL, DIAGNOSTIC Recall Acid reflux Health Maintenance Due Date Last Done Comments Zoster Vaccines (2 of 3) 09/07/2012 07/13/2012 COVID-19 Vaccine (5 - Pfizer series) 09/22/2021 07/28/2021, 07/02/2021, 11/16/2020, Additional history exists Albumin/Creatinine Ratio 06/18/20232 022, 10/19/2021, 01/04/2021, Additional history exists CKD PHOS USE SMARTSET 78727 06/18/202306/08, 08/17/2021, 03/14/2020, Additional history exists GFR 11/24/2023 05/26/2023, 0803/2023, 11/06/2022, Additional history exists CKD HGB USE SMARTSET 47227 05/26/202405/26, 06/18/2022, 10/17/2021, Additional history exists Depression Screening 05/26/2024 05/26/2023 DTaP,Tdap,and Td Vaccines (2 - Td or [...] and were consensually agreed upon. Care Teams Design Printing Machine Setter Relationship Specialty Start Date End Date Eamon Felder, DO [address] [place] [place] [address] PCP - General Family Medicine 08/25/18 documented as of this encounter
--- OUTSIDE RECORDS SUMMARY | 2023-07-30 05:17 | External Medical Summary | Summary of Care ---
Author Name Unknown Organization [facility] Address [address] [place] [address] Phone [phone] Care Team Providers Care Marketing Planning Manager Name Role Phone DennisEamon ibrahim Clark BUSTAMANTE Primary Care Provider [phone] Reason for Visit * Reason Onset Date Comments Follow Up 07/11/2023 Encounter Details Date Type Department Care Team (Late st Contact Info) Description 07/11/2023 Telephone Interventional Pain Center, [facility] [address] [place] [address] Eleonora Nunes PA-C [address] [place] [place] [address] Follow Up Allergies Active Allergy Reactions Criticality Noted Date Comments Dust 04/15/2011 Upper resp sx Other Allergy (See Comments) 10/23/2012 Perfume that contains kiah root causes nasal congestion documented as of this encounter (statuses as of 07/11/2023) Medications Medication Sig Dispensed Refills Start Date [...] (FLONASE) 50 MCG/ACT nasal spray Administer 1 [place] into nostril in the morning. 0 Active Ipratropium [place] 0.06 % Nasal Solution (Atrovent)Indication s:Periodic breathing [...] MG Oral Tablet (Namenda) 0 06/02/2023 Active Venlafaxine HCl ER 150 MG Oral Capsule Extended Release 24 Hour (Effexor XR) Take 300 mg (2 pills) every day 180 Capsule 1 06/06/2023 Active Mckinley 2 % External Pad (Erythromycin)Indica [...] FOR SWELLING 90 Tablet 0 06/28/2023 Active LORazepam 1 MG Oral Tablet (Ativan) Take 0.5 mg (1/2 pill) up to 4 times a day as needed for anxiety 60 Tablet 3 07/02/2023 Active documented as of this encounter (statuses as of 07/11/2023) Active Problems Problem Noted Date Diagnosed Date [...] as of this encounter (statuses as of 07/11/2023) Resolved Problems Problem Noted Date Diagnosed Date Resolved Date Kidney disease, chronic, sta ge IV (GFR 15-29 ml/min) 10/17/2021 10/17/2021 Major depressive disorder, recurrent episode 9 03/14/2020 Fatigue 09/12/2016 11/19/2018 Kidney disease, chronic, sta ge III (GFR 30-59 ml/min) 11/21/2014 09/21/2020 Overview: Per CKD protocol #1 Pure hypercholesterolemia 10/12/2013 Screening for cholesterol level 09/27/2013 09/24/2016 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 Repeat 2019 at the same time as colonoscopy 04/01/13: EGD short segment Jha's esophagus, repeat 03/2016, Dr. Lee 2010: EGD clear 2008: Jha's esophagus Abnormal results of liver function [...] as of this encounter (statuses as of 07/11/2023) Immunizations Name Administration Dates Next Due COVID-19 [...] encounter Miscellaneous Notes * Telephone Encounter - Princess Song - 07/11/2023 3:49 PM EDT Patient called in and states that his injection worked very well until he had a recent fall. The pain is back and he would like another injection. He also stated that he hurt his ankle during the fall and would like someone to look at that as well. Can you send a referral to ortho? documented in this encounter Plan of Treatment Upcoming Encounters Date Type Department Care Team (Late st Contact Info) Description 07/15/2023 11:30 AM EST Office Visit Cardiology, [facility] [address] [place] [place] [address] Dimas Romero DO [address] [place] [address] 07/15/2023 12:00 PM EST Telemedicine Psychiatry, [facility] [address] [place] [address] Pippa Ryan MD [address] [place] [address] 09/18/2023 2:00 PM EST Office Visit Nephrology, [facility] [address] [place] [address] Gi Castillo PA-C 200 [facility] [place] [address] 12/05/2023 12:00 PM EDT Office Visit Sleep Disorders Ctr Shalini Chairez [place] [address] [place] [phone] Herlinda Renee CRNP [address] [place] [address] 12/22/2023 12:40 PM EDT Office [place] [facility] [place] [address] [facility] [place] [address] Eamon Felder DO 200 [facility] [place] [address] Scheduled Procedures Name Priority Associated Diagnoses Date/Ti me ESOPHAGOGASTRODUODENOSCOPY ( EGD), FLEXIBLE, TRANSORAL, DIAGNOSTIC Recall Acid reflux Health Maintenance Due Date Last Done Comments Zoster Vaccines (2 of 3) 09/07/2012 07/13/2012 COVID-19 Vaccine ( season) 2023 07/28/2021, 07/02/2021, 11/16/2020, Additional history exists Albumin/Creatinine Ratio 06/18/2023 022, 10/19/2021, 01/04/2021, Additional history exists CKD PHOS USE SMARTSET 09686 06/18/202306/08, 08/17/2021, 03/14/2020, Additional history exists GFR 11/24/2023 05/26/2023, 08/0 03/2023, 11/06/2022, Additional history exists CKD HGB USE SMARTSET 88467 05/26/202405/26, 06/18/2022, 10/17/2021, Additional history exists Depression [...] and were consensually agreed upon. Care Teams Marketing Planning Manager Relationship Specialty Start Date End Date Eamon Felder DO [address] [place] [address] PCP - General Family Medicine 08/25/18 documented as of this encounter
--- OUTSIDE RECORDS SUMMARY | 2023-07-30 05:17 | External Medical Summary | Summary of Care ---
Author Name Unknown Organization [facility] Address [address] [place] [address] Phone [phone] Care Team Providers Care Immigration Specialist Name Role Phone Bradford Eamon Clark BUSTAMANTE Primary Care Provider [phone] Reason for Visit * Reason Onset Date Comments Appointment Canceled 06/05/2023 HD Encounter Details Date Type Department Care Team Description 06/05/2023 Telephone Family Practice [facility] [address] [facility] [place] [address] Carolann Hoyt MD [address] [place] [address] Appointment Canceled (HD) Allergies Active Allergy Reactions [...] (FLONASE) 50 MCG/ACT nasal spray Administer 1 [place] into nostril in the morning. 0 Active Ipratropium [place] 0.06 % Nasal Solution (Atrovent)Indicati ons:Periodic breathing [...] encounter Miscellaneous Notes * Telephone Encounter - Lorrie Jiménez - 06/06/2023 2:49 PM EDT Pt completed labs earlier today 06/06 * Telephone Encounter - Eamon Felder DO [...] plan was made in the hospital around [facility] but am uncertain of details. Thanks for helping Ricardo! * Telephone Encounter - Lorrie Jiménez - 06/05/2023 11:43 AM EDT Spoke with pt to confirm appt 06/05 HD// pt stated he would have to reschedule, seeing real estate associate attorney today. Pt rescheduled with PCP. Pt also advised BELA Stewart is saying scripts from [facility] while in Hospital have not been authorized yet. [facility] ph# [phone] Please follow up with pt about meds at [phone] documented in this encounter Plan of Treatment Upcoming Encounters Date Type Specialty Care Team Description 06/11/2023 Office Visit Family Medicine Eamon Felder, DO [address] [place] [address] 06/30/2023 Telemedicine Psychiatry Pippa Ryan MD [address] [place] [address] 08/11/2023 Office Visit Cardiology Russ Morley PA-C [address] [place] [address] 09/18/2023 Office Visit Nephrology Gi Castillo PA-C [address] [place] [address] 12/05/2023 Office Visit Sleep Disorders Herlinda Renee CRNP [address] [place] [address] 12/22/2023 Office Visit Family Medicine Eamon Felder, DO [address] [place] [address] Scheduled Procedures Name Priority Associated Diagnoses Date/Ti me ESOPHAGOGASTRODUODENOSCOPY ( EGD), FLEXIBLE, TRANSORAL, DIAGNOSTIC Recall Acid reflux Health Maintenance Due Date Last Done Comments Zoster Vaccines (2 of 3) 09/07/2012 07/13/2012 COVID-19 Vaccine (5 - Pfizer series) 09/22/2021 07/28/2021, 07/02/2021, 11/16/2020, Additional history exists Albumin/Creatinine Ratio 06/18/20232 022, 10/19/2021, 01/04/2021, Additional history exists CKD PHOS USE SMARTSET 47203 06/18/202306/08, 08/17/2021, 03/14/2020, Additional history exists GFR 11/24/2023 05/26/2023, 08/0 03/2023, 11/06/2022, Additional history exists CKD HGB USE SMARTSET 52035 05/26/202405/26, 06/18/2022, 10/17/2021, Additional history exists Depression [...] and were consensually agreed upon. Care Teams Immigration Specialist Relationship Specialty Start Date End Date Eamon Felder, DO [address] [facility] [place] [address] PCP - General Family Medicine 08/25/18 documented as of this encounter
--- OUTSIDE RECORDS SUMMARY | 2023-07-30 05:17 | External Medical Summary | Summary of Care ---
Author Name Unknown Organization [facility] Address [address] [place] [address] Phone [phone] Care Team Providers Care Manager Cancer Name Role Phone Bradford Eamon Clark BUSTAMANTE Primary Care Provider [phone] Reason for Visit * Reason Comments eRx-Medication Refill Encounter Details Date Type Department Care Team Description 06/28/2023 Refill Cardiology, [facility] [address] [place] [place] [address] Tristan Sanders DO [address] [place] [address] Chronic systolic congestive heart failure (HCC) Allergies Active Allergy Reactions Severity Noted Date Comments Dust 04/15/2011 Upper resp sx Other Allergy (See Comments) 10/23/2012 Perfume that contains kiah root causes nasal congestion documented as of this encounter (statuses as of 06/28/2023) Medications Medication Sig Dispensed Refills Start Date [...] as needed 60 Each 1 8 Active fluticasone (FLONASE) 50 MCG/ACT nasal spray Administer 1 [place] into nostril in the morning. 0 Active Ipratropium [place] 0.06 % Nasal Solution (Atrovent)Indicati ons:Periodic breathing [...] mouth daily. 30 Capsule 11 3 Active LORazepam 1 MG Oral Tablet (Ativan) Take 0.5 mg (1/2 pill) up to 4 times a day as needed for anxiety 60 Tablet 3 3 Active Memantine HCl 10 MG Oral Tablet (Namenda) 0 3 Active ARIPiprazole 5 MG Oral Tablet (Abilify) Take 2.5 mg (1/2 pill) every day 30 Tablet 4 3 Active Venlafaxine HCl ER 150 MG Oral Capsule Extended Release 24 Hour (Effexor XR) Take 300 mg (2 pills) every day 180 Capsule 1 3 Active Mckinley 2 % External Pad (Erythromycin)Jackie cations:Rosacea apply topically TO FACE DAILY FOR ROSACEA as directed by prescriber 60 Each 5 3 Active Hydrocortisone (Perianal) 2.5 % External CreamIndications:H emorrhoids, external without complications Administer into the rectum 2 times a day. 28 g 1 3 Active Torsemide 10 MG Oral Tablet (Demadex)Indicatio ns:Chronic systolic congestive heart failure (HCC) TAKE 1 TABLET BY MOUTH NEEDED ONLY FOR SWELLING 90 Tablet 0 3 Active Torsemide 10 MG Oral Tablet (Demadex)Indicatio ns:Chronic systolic congestive heart failure (HCC) Take one tablet by mouth only as needed. 60 Tablet 3 3 06/28/20 23 Discontinued documented as of this encounter (statuses as of 06/28/2023) Active Problems Problem Noted Date Prediabetes 06/16/2023 Overview: Per Prediabetes protocol [...] as of this encounter (statuses as of 06/28/2023) Resolved Problems Problem Noted Date Resolved Date [...] as of this encounter (statuses as of 06/28/2023) Immunizations Name Administration Dates Next Due COVID-19 mRNA, LNP-s, No Pre serve, 2-Dose Series (FittingRoom) 07/28/2021,11/16/2020,10/17/2020 Pneumococcal Conjugate Vacc, 13 Valent (Prevnar) [...] encounter Miscellaneous Notes * Telephone Encounter - Tristan Sanders DO - 06/28/2023 5:34 PM EDTSigned Prescriptions: Disp Refills Torsemide 10 MG Oral Tablet (Demadex) 90 Tab*0 Sig: TAKE 1 TABLET BY MOUTH NEEDED ONLY FOR SWELLING Authorizing Provider: TRISTAN SANDERS * Telephone Encounter - Princess Thorpe LPN - 06/28/2023 12:55 PM EDTPending Prescriptions: Disp Refills Torsemide 10 MG Oral Tablet (Demadex) 90 Tab*0 Sig: TAKE 1 TABLET BY MOUTH NEEDED ONLY FOR SWELLING * Telephone Encounter - Princess Thorpe LPN - 06/28/2023 12:50 PM EDT 01/31/23 OV note by Russ Morley PA-C states Decrease torsemide from 10 mg 3 days per week to only as needed. Pended per most recent office visit note. Did you pend patient's preferred pharmacy and medication before forwarding?yes Pharmacy: [id number] [address] [facility] Pending Prescriptions: Disp Refills Torsemide 10 MG Oral Tablet (Demadex) [Ph*90 Tab*1 Sig: TAKE 1 TABLET BY MOUTH NEEDED ONLY FOR SWELLING Last Visit: 01/31/2023 (in office), 01/07/2020 (telemedicine) Next Visit: 07/15/2023 If no future appointments scheduled, and last appointment is greater than a year ago, please schedule patient for a follow-up appointment Last date the medication was ordered: 11/22/22 Is this request for a controlled substance? NO Urine Drug Screen:No results found. However, due to the size of the patient record, not all encounters were searched. Please check Results Review for a complete set of results. Patient Phone Numbers Labs: Lab Results Component Value Date/Time CREAT 1.3 (H) 05/26/2023 01:43 PM CREAT 1.8 (H) 08/25/2020 10:07 AM POTASSIUM 4.3 05/26/2023 01:43 PM POTASSIUM 3.9 08/25/2020 10:07 AM TSH 2.74 10/17/2021 03:47 PM TSH 1.36 07/10/2020 12:22 PM LDLCALC 82 06/06/2023 12:42 PM LDLCALC 87 07/08/2020 07:44 AM LDLDIRECT NOT APPLICABLE 07/08/2020 07:44 AM LDLDIRECT 69 10/22/2017 12:36 PM ALT 24 04/14/2023 04:05 PM ALT 27 07/10/2020 12:22 PM HGBA1C 6.0 (H) 06/06/2023 12:42 PM HGBA1C 5.5 12/22/2013 09:33 AM documented in this encounter Plan of Treatment Upcoming Encounters Date Type Specialty Care Team Description 06/30/2023 Telemedicine Psychiatry Pippa Ryan MD [address] [facility] [place] [address] 07/15/2023 Office Visit Cardiology Tristan Sanders DO [address] [place] [address] 09/18/2023 Office Visit Nephrology Gi Castillo PA-C [address] [place] [address] 12/05/2023 Office Visit Sleep Disorders Herlinda Renee CRNP [address] [place] [address] 12/22/2023 Office Visit Family Medicine Eamon Felder DO [address] [place] [address] Scheduled Procedures Name Priority Associated Diagnoses Date/Ti me ESOPHAGOGASTRODUODENOSCOPY ( EGD), FLEXIBLE, TRANSORAL, DIAGNOSTIC Recall Acid reflux Health Maintenance Due Date Last Done Comments Zoster Vaccines (2 of 3) 09/07/2012 07/13/2012 COVID-19 Vaccine ( season) 2023 07/28/2021, 07/02/2021, 11/16/2020, Additional history exists Albumin/Creatinine Ratio 06/18/20232 022, 10/19/2021, 01/04/2021, Additional history exists CKD PHOS USE SMARTSET 28313 06/18/202306/08, 08/17/2021, 03/14/2020, Additional history exists GFR 11/24/2023 05/26/2023, 08/03/2023, 11/06/2022, Additional history exists CKD HGB USE SMARTSET 48954 05/26/202405/26, 06/18/2022, 10/17/2021, Additional history exists Depression Screening 05/26/2024 05/26/2023 HbA1c 06/06/2024 06/06/2023, 04/02/2014, 02/12/2011, Additional history exists Jha's Esophagus Surveilance [...] Diagnoses Diagnosis Chronic systolic congestive heart failure (HCC) Chronic systolic heart failure documented in this encounter Advance Directives Latest Code Status on File Code Status Date Activated Date Inactivated Comments Full Code 07/07/2020 12:46 AM 07/12/2020 5:11 PM Thi s order reflects the patients wishes and were consensually agreed upon. Care Teams Manager Cancer Relationship Specialty Start Date End Date Eamon Felder, [address] [place] [address] PCP - General Family Medicine 08/25/18 documented as of this encounter
--- OUTSIDE RECORDS SUMMARY | 2023-07-30 05:17 | External Medical Summary | Summary of Care ---
Author Name Unknown Organization [facility] Address [address] [place] [address] Phone [phone] Care Team Providers Care Wholesaler Name Role Phone DennisEamon ibrahim Clark BUSTAMANTE Primary Care Provider [phone] Reason for Visit * Reason Onset Date Comments Follow Up 07/11/2023 Encounter Details Date Type Department Care Team (Late st Contact Info) Description 07/11/2023 Telephone Interventional Pain Center, [facility] [address] [place] [address] Eleonora Nunes PA-C [address] [place] [address] Follow Up Allergies Active Allergy Reactions Criticality [...] (FLONASE) 50 MCG/ACT nasal spray Administer 1 [place] into nostril in the morning. 0 Active Ipratropium [place] 0.06 % Nasal Solution (Atrovent)Indication s:Periodic breathing [...] as of this encounter Miscellaneous Notes * Addendum Note - Fabián Verduzco DO - 07/11/2023 4:21 PM EDTAddended by: FABIÁN VERDUZCO on: 07/11/2023 04:21 PM Modules accepted: Orders * Telephone Encounter - Princess Song - [...] 07/15/2023 11:30 AM EST Office Visit Cardiology, [facility] [address] [facility] [place] [address] Dimas Romero DO 132 [facility] [place] [address] 07/15/2023 12:00 PM EST Telemedicine Psychiatry, [place] [address] [place] [address] Pippa Ryan MD [address] [place] [address] 09/18/2023 2:00 PM EST Office Visit Nephrology, [facility] [address] [facility] [place], [place] [address] Gi Castillo PA-C [address] [place] [address] 12/05/2023 12:00 PM EDT [facility] [address] [place] [phone] Herlinda Renee CRNP [address] [place] [address] 12/22/2023 12:40 PM EDT Office Visit Family Practice [facility] [address] [facility] [place] [address] Eamon Felder DO [address] [facility] [place] [address] Scheduled Orders Name Type Priority Associated Diagnoses Orde r Schedule INJECT DX/THER SUBSTANCE INTERLAMINAR LUMBAR/SACRAL W IMAGE GUIDE Procedures Routine Lumbar radicular pain Expected: 07/12/2023, Expires: 10/11/2023 Scheduled Procedures Name Priority Associated Diagnoses Date/Ti me ESOPHAGOGASTRODUODENOSCOPY ( EGD), FLEXIBLE, TRANSORAL, DIAGNOSTIC Recall Acid reflux Health Maintenance Due Date Last Done Comments Zoster Vaccines (2 of 3) 09/07/2012 07/13/2012 COVID-19 Vaccine ( season) 2023 07/28/2021, 07/02/2021, 11/16/2020, Additional history exists Albumin/Creatinine Ratio 06/18/20232 022, 10/19/2021, 01/04/2021, Additional history exists CKD PHOS USE SMARTSET 11193 06/18/202306/08, 08/17/2021, 03/14/2020, Additional history exists GFR 11/24/2023 05/26/2023, 08/0 03/2023, 11/06/2022, Additional history exists CKD HGB USE SMARTSET 00723 05/26/202405/263, 06/18/2022, 10/17/2021, Additional history exists Depression Screening [...] as of this encounter Visit Diagnoses Diagnosis Lumbar radicular pain- Primary Thoracic or lumbosacral neuritis or radiculitis, unspecified documented in this encounter Advance Directives Latest Code Status on File Code Status Date Activated Date Inactivated Comments Full Code 07/07/2020 12:46 AM 07/12/2020 5:11 PM Thi s order reflects the patients wishes and were consensually agreed upon. Care Teams Wholesaler Relationship Specialty Start Date End Date Eamon Felder DO [address] [facility] [place] [address] PCP - General Family Medicine 08/25/18 documented as of this encounter
--- OUTSIDE RECORDS SUMMARY | 2023-07-30 05:17 | External Medical Summary | Summary of Care ---
Author Name Unknown Organization [facility] Address [address] [place] [address] Phone [phone] Care Team Providers Care Trapper Bird Name Role Phone Bradford Eamon Clark BUSTAMANTE Primary Care Provider [phone] Reason for Visit * Reason Comments Outpatient Testing Encounter Details Date Type Department Care Team Description 06/06/2023 Laboratory Laboratory [facility] [address] [place] [id number] [facility] [address] [place] [address] Encounter for long-term (current) use of medications Allergies Active Allergy Reactions Severity Noted Date Comments Dust 04/15/2011 Upper resp sx Other Allergy (See Comments) 10/23/2012 Perfume that contains kiah root causes nasal congestion documented as of this encounter (statuses as of 06/06/2023) Medications Medication Sig Dispensed Refills Start Date End Date Status Vardenafil HCl (LEVITRA) 20 MG TabletIndications:I mpotence of organic origin Take 1 Tab by mouth daily as needed for Erectile Dysfunction. 1 hour prior to intercourse, no more than 1 dose per day. 10 Tab 5 04/24/2018 Active Clindamycin Phosphate 1 % SWABIndications:Ros acea Apply to face daily as needed 60 Each 1 08/19/2018 Active fluticasone (FLONASE) 50 MCG/ACT nasal spray Administer 1 [place] into nostril in the morning. 0 Active Ipratropium [place] 0.06 % Nasal Solution (Atrovent)Indicatio ns:Periodic breathing instill 2 sprays into each nostril three times a day if needed for allergies 0 10/24/2020 Active Mckinley 2 % External Pad (Erythromycin)Indic ations:Rosacea apply topically TO FACE DAILY FOR ROSACEA as directed by prescriber 60 Each 1 03/26/2021 Active CPAP every night at bedtime. 0 Active Albuterol Sulfate HFA 108 (90 Base) MCG/ACT Inhalation Aerosol SolutionIndications :Bronchitis, complicated INHALE 2 PUFFS EVERY 4 HOURS NEEDED FOR COUGH OR WHEEZING 18 g 1 10/27/2022 Active B-12 1000 MCG Oral Tablet Take 1,000 mcg by mouth daily. 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 180 Tablet 3 01/31/2023 Active Torsemide 10 MG Oral Tablet (Demadex)Indication s:Chronic systolic congestive heart failure (HCC) Take one tablet by mouth only as needed. 60 Tablet 3 01/31/2023 Active Eliquis 2.5 MG Oral Tablet (Apixaban)Indicatio ns:Chronic atrial fibrillation (HCC) TAKE 1 TABLET BY MOUTH TWICE A DAY 60 Tablet 3 03/14/2023 Active Hyoscyamine Sulfate 0.125 MG Sublingual Tablet Sublingual (Levsin)Indications :Irritable bowel syndrome One pill by mouth or under the tongue every 4 hours as needed for abdominal pain 40 Tablet 4 03/31/2023 Active Metoprolol Succinate ER 25 MG Oral Tablet Extended Release 24 Hour (toPROL XL)Indications:Storage Battery Inspector jorge atrial fibrillation (HCC) 1/2 tablet daily. 90 Tablet 3 04/14/2023 Active Doxycycline Monohydrate 50 MG Oral Capsule Take 50 mg by mouth daily. 30 Capsule 11 04/21/2023 Active LORazepam 1 MG Oral Tablet (Ativan) Take 0.5 mg (1/2 pill) up to 4 times a day as needed for anxiety 60 Tablet 3 05/06/2023 Active Memantine HCl 10 MG Oral Tablet (Namenda) 0 06/02/2023 Active ARIPiprazole 5 MG Oral Tablet (Abilify) Take 2.5 mg (1/2 pill) every day 30 Tablet 4 06/06/2023 Active Venlafaxine HCl ER 150 MG Oral Capsule Extended Release 24 Hour (Effexor XR) Take 300 mg (2 pills) every day 180 Capsule 1 06/06/2023 Active documented as of this encounter (statuses [...] mRNA, LNP-s, No Pre serve, 2-Dose Series ([employer]) 07/28/2021,11/16/2020,10/17/2020 Pneumococcal Conjugate Vacc, 13 Valent (Prevnar) [...] Visit Family Medicine Eamon Felder, DO [address] [place] [address] 06/30/2023 Telemedicine Psychiatry Pippa Ryan MD [address] [place] [address] 08/11/2023 Office Visit Cardiology Russ Morley PA-C [address] [place] [address] 09/18/2023 Office Visit Nephrology Gi Castillo PA-C [address] [place] [address] 12/05/2023 Office Visit Sleep Disorders Herlinda Renee CRNP [address] [place] [address] 12/22/2023 Office Visit Family Medicine Eamon Felder, DO [address] [place] [address] Pending Results Name Type Priority Associated Diagnoses Date /Time HEMOGLOBIN A1C Lab Routine Encounter for long-term (current) use of medications 06/06/2023 12:42 PM EDT LIPID PANEL WITH DIRECT LDL IF TG IS HIGH Lab Routine Encounter for long-term (current) use of medications 06/06/2023 12:42 PM EDT Scheduled Procedures Name Priority Associated Diagnoses Date/Ti me ESOPHAGOGASTRODUODENOSCOPY ( EGD), FLEXIBLE, TRANSORAL, DIAGNOSTIC Recall Acid reflux Health Maintenance Due Date Last Done Comments Zoster Vaccines (2 of 3) 09/07/2012 07/13/2012 COVID-19 Vaccine (5 - Pfizer series) 09/22/2021 07/28/2021, 07/02/2021, 11/16/2020, Additional history exists Albumin/Creatinine Ratio 06/18/2023 022, 10/19/2021, 01/04/2021, Additional history exists CKD PHOS USE SMARTSET 71129 06/18/202306/08, 08/17/2021, 03/14/2020, Additional history exists GFR 11/24/2023 05/26/2023, 08/0 03/2023, 11/06/2022, Additional history exists CKD HGB USE SMARTSET 50886 05/26/202405/26, 06/18/2022, 10/17/2021, Additional history exists Depression [...] as of this encounter Visit Diagnoses Diagnosis Encounter for long-term (current) use of medications Encounter for long-term (current) use of other medications documented in this encounter Advance Directives Latest Code Status on File Code Status Date Activated Date Inactivated Comments Full Code 07/07/2020 12:46 AM 07/12/2020 5:11 PM Thi s order reflects the patients wishes and were consensually agreed upon. Care Teams Trapper Bird Relationship Specialty Start Date End Date Eamon Felder, DO [address] [place] [address] PCP - General Family Medicine 08/25/18 documented as of this encounter
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
--- OUTSIDE RECORDS SUMMARY | 2023-07-30 05:18 | External Medical Summary | Summary of Care ---
Author Name Unknown Organization [facility] Address [address] [place] [address] Phone [phone] Care Team Providers Care Silk Spreader Name Role Phone BradfordEamon Clark BUSTAMANTE Primary Care Provider [phone] Encounter Details Date Type Department Care Team Description 06/06/2023 Documentation Psychiatry, [place] [address] [place] [address] Queenie Ryan MD [address] [place], [place] [id number] Encounter for long-term (current) use of medications* Allergies Active Allergy Reactions Severity Noted Date [...] (FLONASE) 50 MCG/ACT nasal spray Administer 1 [place] into nostril in the morning. 0 Active Ipratropium [place] 0.06 % Nasal Solution (Atrovent)Indicati ons:Periodic breathing [...] every day 180 Capsule 1 06/06/2023 Active Venlafaxine HCl ER 150 MG [...] (Prevnar) 10/26/2015 Pneumococcal Polysaccharide PPV23 (Pneumovax) 06/13/2008 Season Influenza, Quad, PF, Adjuvanted, 65+ Yrs, IM (FLUAD) 05/31/2020 Seasonal Influenza, PF, 6 mo ns & Above, IM , (Flulaval) 05/22/2018,06/25/2017 Seasonal Influenza, Quadriva lent Hd (Fluzone Hd) [...] as of this encounter Progress Notes * Queenie Ryan MD - 06/06/2023 9:55 AM EDT Patient was hospitalized last week at [facility]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 Hewas started on aripiprazole as an inpatient for MDD with psychosis, and experienced significant improvement. I have reviwed his discharge summary and personally spoke with the attending psychiatrist who took care of him. He is at very high risk for repeat hospitalization and severe deterioration of mental health, including risk of by suicide, if he does not continue this medication. He has tried multiple other medications without success for his severe MDD with psychosis. Thus regardless of age, the clear benefits of continued aripiprazole considerably outweigh the potential risks. PLAN: --Continue aripiprazole 2.5 mg qday --BP 05/26/23: 130/76 --BMI 05/07/34: 35.6 --I have ordered lipids and A1c and patient will get them done JULIO; however he MUST continue on the aripipazole for now even while waiting for these labs, or he is at very high risk of a bad clinical outcome including hospitalization and documented in this encounter Miscellaneous Notes * Addendum Note - Queenie Ryan MD - 06/06/2023 10:02 AM EDTAddended by: QUEENIE RYAN on: 06/06/2023 10:02 AM Modules accepted: Orders documented in this encounter Plan of Treatment Upcoming Encounters Date Type Specialty Care Team Description 06/11/2023 Office Visit Family Medicine Eamon Felder, DO [address] [facility], [place] [address] 06/30/2023 Telemedicine Psychiatry Queenie Ryan MD [address] [place] [address] 08/11/2023 Office Visit Cardiology Russ Morley PA-C [address] [place] [address] 09/18/2023 Office Visit Nephrology Gi Castillo PA-C [address] [place] [address] 12/05/2023 Office Visit Sleep Disorders Herlinda Renee CRNP [address] [place] [address] 12/22/2023 Office Visit Family Medicine Eamon Felder DO [address] [place] [address] Scheduled Orders Name Type Priority Associated Diagnoses Orde r Schedule HEMOGLOBIN A1C Lab Routine Encounter for long-term (current) use of medications Expected: 06/06/2023, Expires: 06/06/2024 LIPID PANEL WITH DIRECT LDL IF TG IS HIGH Lab Routine Encounter for long-term (current) use of medications Expected: 06/06/2023, Expires: 06/06/2024 Scheduled Procedures Name Priority Associated Diagnoses Date/Ti me ESOPHAGOGASTRODUODENOSCOPY ( EGD), FLEXIBLE, TRANSORAL, DIAGNOSTIC Recall Acid reflux Health Maintenance Due Date Last Done Comments Zoster Vaccines (2 of 3) 09/07/2012 07/13/2012 COVID-19 Vaccine (5 - Pfizer series) 09/22/2021 07/28/2021, 07/02/2021, 11/16/2020, Additional history exists Albumin/Creatinine Ratio 06/18/20232 022, 10/19/2021, 01/04/2021, Additional history exists CKD PHOS USE SMARTSET 26784 06/18/202306/08, 08/17/2021, 03/14/2020, Additional history exists GFR 11/24/2023 05/26/2023, 08/0 03/2023, 11/06/2022, Additional history exists CKD HGB USE SMARTSET 12344 05/26/202405/26, 06/18/2022, 10/17/2021, Additional history exists Depression [...] Diagnosis Encounter for long-term (current) use of medications- Primary Encounter for long-term (current) use of other medications documented in this encounter Advance Directives Latest Code Status on File Code Status Date Activated Date Inactivated Comments Full Code 07/07/2020 12:46 AM 07/12/2020 5:11 PM Thi s order reflects the patients wishes and were consensually agreed upon. Care Teams Silk Spreader Relationship Specialty Start Date End Date Eamon Felder, DO [address] [place] [address] PCP - General Family Medicine 08/25/18 documented as of this encounter
--- OUTSIDE RECORDS SUMMARY | 2023-07-30 05:18 | External Medical Summary | Summary of Care ---
Author Name Unknown Organization [facility] Address [address] [place] [address] Phone [phone] Care Team Providers Care Telephone Lineman Name Role Phone BradfordEamon Clark BUSTAMANTE Primary Care Provider [phone] Encounter Details Date Type Department Care Team Description 06/06/2023 Telephone [facility] [place] [address] [place] [address] Pippa Ryan MD [address] [place] [address] Allergies Active Allergy Reactions Severity Noted Date [...] (FLONASE) 50 MCG/ACT nasal spray Administer 1 [place] into nostril in the morning. 0 Active Ipratropium [place] 0.06 % Nasal Solution (Atrovent)Indicat ions:Periodic breathing instill 2 sprays into each nostril three times a day if needed for allergies 0 1 Active Mckinley 2 % External Pad (Erythromycin)Ind ications:Rosacea apply topically TO FACE DAILY FOR ROSACEA as directed by prescriber 60 Each 1 1 Active CPAP every night at bedtime. [...] the morning. 180 Tablet 3 3 Active Torsemide 10 MG Oral Tablet (Demadex)Indicati ons:Chronic systolic congestive heart failure (HCC) Take one tablet by mouth only as needed. 60 Tablet 3 3 Active Eliquis 2.5 MG [...] pills) every day 180 Capsule 1 3 06/06/20 23 Discontinued(Ref ill) ARIPiprazole 5 MG Oral Tablet (Abilify) 0.5 Tablets. 0 3 06/06/20 23 Discontinued documented as of this encounter [...] Progress Notes * Pippa Ryan MD - 06/06/2023 9:46 AM EDT Patient was hospitalized last week on psychiatry at [facility] for MDD, severe, withpsychosis. He was started on aripiprazole as an inpatient for MDD with psychosis, and experienced significant improvement. He is at very high risk for repeat hospitalization and severe deterioration of mental health if he does not continue this medication. documented in this encounter Miscellaneous Notes * Telephone Encounter - Pippa Ryan MD - 06/06/2023 9:54 AM EDT Patient was hospitalized last week on psychiatry at [facility] for MDD, severe, withpsychosis. He was started on aripiprazole as an inpatient for MDD with psychosis, and experienced significant improvement. He is at very high risk for repeat hospitalization and severe deterioration of mental health if he does not continue this medication. documented in this encounter Plan of Treatment Upcoming Encounters Date Type Specialty Care Team Description 06/11/2023 Office Visit Family Medicine Eamon Felder, DO [address] [place] [address] 06/30/2023 Telemedicine Psychiatry Pippa Ryan MD [address] [facility] [place] [address] 08/11/2023 Office Visit Cardiology Russ Morley PA-C [address] [place] [address] 09/18/2023 Office Visit Nephrology Gi Castillo PA-C [address] [place] [address] 12/05/2023 Office Visit Sleep Disorders Herlinda Renee CRNP [address] [place] [address] 12/22/2023 Office Visit Family Medicine Eamon Felder DO [address] [place] [address] Scheduled Procedures Name Priority Associated Diagnoses Date/Ti me ESOPHAGOGASTRODUODENOSCOPY ( EGD), FLEXIBLE, TRANSORAL, DIAGNOSTIC Recall Acid reflux Health Maintenance Due Date Last Done Comments Zoster Vaccines (2 of 3) 09/07/2012 07/13/2012 COVID-19 Vaccine (5 - Pfizer series) 09/22/2021 07/28/2021, 07/02/2021, 11/16/2020, Additional history exists Albumin/Creatinine Ratio 06/18/20232 022, 10/19/2021, 01/04/2021, Additional history exists CKD PHOS USE SMARTSET 00342 06/18/202306/08, 08/17/2021, 03/14/2020, Additional history exists GFR 11/24/2023 05/26/2023, 08/0 03/2023, 11/06/2022, Additional history exists CKD HGB USE SMARTSET 82853 05/26/202405/26, 06/18/2022, 10/17/2021, Additional history exists Depression [...] and were consensually agreed upon. Care Teams Telephone Lineman Relationship Specialty Start Date End Date Eamon Felder, DO [address] [place] [address] PCP - General Family Medicine 08/25/18 documented as of this encounter
--- OUTSIDE RECORDS SUMMARY | 2023-07-30 05:18 | External Medical Summary | Summary of Care ---
Author Name Unknown Organization [facility] Address [address] [place] [address] Phone [phone] Care Team Providers Care Financial Services Counselor Name Role Phone Bradford Eamon Clark BUSTAMANTE Primary Care Provider [phone] Reason for Visit * Reason Onset Date Comments Appointment Canceled 06/05/2023 HD Encounter Details Date Type Department Care Team Description 06/05/2023 Telephone Family Practice [facility] [address] [place] [address] Carolann Hoyt MD [address] [place] [address] Appointment Canceled (HD) Allergies Active Allergy Reactions [...] (FLONASE) 50 MCG/ACT nasal spray Administer 1 [place] into nostril in the morning. 0 Active Ipratropium [place] 0.06 % Nasal Solution (Atrovent)Indicati ons:Periodic breathing [...] plan was made in the hospital around [facility] but am uncertain of details. Thanks for helping Ricardo! * Telephone Encounter - Lorrie Jiménez - 06/05/2023 11:43 AM EDT Spoke with pt to confirm appt 06/05 HD// pt stated he would have to reschedule, seeing litigation attorney associate today. Pt rescheduled with PCP. Pt also advised [facility] Tiffani Stewart is saying scripts from [facility] while in Hospital have not been authorized yet. [facility] ph# [phone] Please follow up with pt about meds at [phone] documented in this encounter Plan of Treatment Upcoming Encounters Date Type Specialty Care Team Description 06/11/2023 Office Visit Family Medicine Eamon Felder DO [address] [place] [address] 06/30/2023 Telemedicine Psychiatry Pippa Ryan MD [address] [facility] [place] [address] 08/11/2023 Office Visit Cardiology Russ Morley PA-C [address] [place] [address] 09/18/2023 Office Visit Nephrology Gi Castillo PA-C [address] [place] [address] 12/05/2023 Office Visit Sleep Disorders Herlinda Renee CRNP [address] [place] [address] 12/22/2023 Office Visit Family Medicine Eamon Felder DO [address] [facility] [place] [address] Scheduled Procedures Name Priority Associated Diagnoses Date/Ti me ESOPHAGOGASTRODUODENOSCOPY ( EGD), FLEXIBLE, TRANSORAL, DIAGNOSTIC Recall Acid reflux Health Maintenance Due Date Last Done Comments Zoster Vaccines (2 of 3) 09/07/2012 07/13/2012 COVID-19 Vaccine (5 - Pfizer series) 09/22/2021 07/28/2021, 07/02/2021, 11/16/2020, Additional history exists Albumin/Creatinine Ratio 06/18/20232 022, 10/19/2021, 01/04/2021, Additional history exists CKD PHOS USE SMARTSET 80108 06/18/202306/08, 08/17/2021, 03/14/2020, Additional history exists GFR 11/24/2023 05/26/2023, 08/0 03/2023, 11/06/2022, Additional history exists CKD HGB USE SMARTSET 16951 05/26/202405/26, 06/18/2022, 10/17/2021, Additional history exists Depression [...] and were consensually agreed upon. Care Teams Financial Services Counselor Relationship Specialty Start Date End Date Eamon Felder, DO [address] [place] [address] PCP - General Family Medicine 08/25/18 documented as of this encounter
--- OUTSIDE RECORDS SUMMARY | 2023-07-30 05:18 | External Medical Summary | Summary of Care ---
Author Name Unknown Organization [facility] Address [address] [place] [address] Phone [phone] Care Team Providers Care Alumni Coordinator Name Role Phone BradfordEamon Clark BUSTAMANTE Primary Care Provider +[phone] Encounter Details Date Type Department Care Team Description 06/06/2023 Telephone [facility] [place] [address] [place] [address] Pippa Ryan MD [address] [place] [address] Allergies Active Allergy Reactions Severity [...] (FLONASE) 50 MCG/ACT nasal spray Administer 1 [place] into nostril in the morning. 0 Active Ipratropium [place] 0.06 % Nasal Solution (Atrovent)Indicat ions:Periodic breathing [...] was hospitalized last week on psychiatry at [facility] for MDD, severe, withpsychosis. He was started [...] was hospitalized last week on psychiatry at [facility] for MDD, severe, withpsychosis. He was started [...] Family Medicine Eamon Felder, DO [address] [place] [address] 06/30/2023 Telemedicine Psychiatry Pippa Ryan MD [address] [facility] [place] [address] 08/11/2023 Office Visit Cardiology Russ Morley PA-C [address] [place] [address] 09/18/2023 Office Visit [facility]phrology [facility]illo [facility]C [facility] [place] [address] 12/05/2023 Office Visit Sleep Disorders Herlinda Renee CRNP [address] [place] [address] 12/22/2023 Office Visit Family Medicine Eamon Felder DO [address] [place] [address] Scheduled Procedures Name Priority Associated Diagnoses Date/Ti me ESOPHAGOGASTRODUODENOSCOPY ( EGD), FLEXIBLE, TRANSORAL, DIAGNOSTIC Recall Acid reflux Health Maintenance Due Date Last Done Comments Zoster Vaccines (2 of 3) 09/07/2012 07/13/2012 COVID-19 Vaccine (5 - Pfizer series) 09/22/2021 07/28/2021, 07/02/2021, 11/16/2020, Additional history exists Albumin/Creatinine Ratio 06/18/20232 022, 10/19/2021, 01/04/2021, Additional history exists CKD PHOS USE SMARTSET 03274 06/18/202306/08, 08/17/2021, 03/14/2020, Additional history exists GFR 11/24/2023 05/26/2023, 08/0 03/2023, 11/06/2022, Additional history exists CKD HGB USE SMARTSET 86026 05/26/202405/26, 06/18/2022, 10/17/2021, Additional history exists Depression [...] and were consensually agreed upon. Care Teams Alumni Coordinator Relationship Specialty Start Date End Date Eamon Felder, DO [address] [place] [address] PCP - General Family Medicine 08/25/18 documented as of this encounter
--- OUTSIDE RECORDS SUMMARY | 2023-07-30 05:18 | External Medical Summary | Summary of Care ---
Author Name Unknown Organization [facility] Address [address] [place] [address] Phone [phone] Care Team Providers Care Running Rigger Name Role Phone BradfordEamon Primary Care Provider [phone] Encounter Details Date Type Department Care Team Description 06/02/2023 Telephone [facility], [place] [address] [place] [address] Pippa Ryan MD [address] [place] [address] Allergies Active Allergy Reactions [...] (FLONASE) 50 MCG/ACT nasal spray Administer 1 [place] into nostril in the morning. 0 Active Ipratropium [place] 0.06 % Nasal Solution (Atrovent)Indicati ons:Periodic breathing [...] Progress Notes * Pippa Ryan MD - 06/02/2023 1:27 PM EDT Called and spoke to inpatient psychiatrist at [facility] where patient is. We updated each other and agreed on a plan to start aripiprazole. documented in this encounter Plan of Treatment Upcoming Encounters Date Type Specialty Care Team Description 06/11/2023 Office Visit Family Medicine Eamon Felder, DO [address] [place] [address] 06/30/2023 Telemedicine Psychiatry Pippa Ryan MD [address] [place] [address] 08/11/2023 Office Visit Cardiology Russ Morley PA-C [address] [place] [address] 09/18/2023 Office Visit Nephrology Gi Castillo PA-C [address] [place] [address] 12/05/2023 Office Visit Sleep Disorders Herlinda Renee CRNP [address] [place] [address] 12/22/2023 Office Visit Family Medicine Eamon Felder, [address] [place] [address] Scheduled Procedures Name Priority Associated Diagnoses Date/Ti me ESOPHAGOGASTRODUODENOSCOPY ( EGD), FLEXIBLE, TRANSORAL, DIAGNOSTIC Recall Acid reflux Health Maintenance Due Date Last Done Comments Zoster Vaccines (2 of 3) 09/07/2012 07/13/2012 COVID-19 Vaccine (5 - Pfizer series) 09/22/2021 07/28/2021, 07/02/2021, 11/16/2020, Additional history exists Albumin/Creatinine Ratio 06/18/20232 022, 10/19/2021, 01/04/2021, Additional history exists CKD PHOS USE SMARTSET 60455 06/18/202306/08, 08/17/2021, 03/14/2020, Additional history exists GFR 11/24/2023 05/26/2023, 08/0 03/2023, 11/06/2022, Additional history exists CKD HGB USE SMARTSET 73246 05/26/202405/26, 06/18/2022, 10/17/2021, Additional history exists Depression [...] and were consensually agreed upon. Care Teams Running Rigger Relationship Specialty Start Date End Date Eamon Felder, DO 200 [facility] [place] [address] PCP - General Family Medicine 08/25/18 documented as of this encounter
--- OUTSIDE RECORDS SUMMARY | 2023-07-30 05:18 | External Medical Summary | Summary of Care ---
Author Name Unknown Organization [facility] Address [address] [place] [address] Phone [phone] Care Team Providers Care Decommissioning Well Site Manager Name Role Phone BradfordEamon Clark BUSTAMANTE Primary Care Provider [phone] Encounter Details Date Type Department Care Team Description 06/06/2023 Documentation Psychiatry, [place] [address] [place] [address] Queenie Ryan MD [address] [place], [place] [id number] Encounter for long-term (current) use of medications* [...] (FLONASE) 50 MCG/ACT nasal spray Administer 1 [place] into nostril in the morning. 0 Active Ipratropium [place] 0.06 % Nasal Solution (Atrovent)Indicati ons:Periodic breathing [...] EDT Patient was hospitalized last week at [facility]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 Hewas started [...] Visit Family Medicine Eamon Felder, DO 200 [facility], [place] [address] 06/30/2023 Telemedicine Psychiatry Queenie Ryan MD [address] [place] [address] 08/11/2023 Office Visit Cardiology Russ Morley PA-C [address] [place] [address] 09/18/2023 Office Visit Nephrology Gi Castillo PA-C [address] [place] [address] 12/05/2023 Office Visit Sleep Disorders Herlinda Renee CRNP [address] [place] [address] 12/22/2023 Office Visit Family Medicine Eamon Felder DO [address] [place] [address] Scheduled Orders Name Type Priority Associated Diagnoses [...] Additional history exists CKD PHOS USE SMARTSET 06958 06/18/202306/08, 08/17/2021, 03/14/2020, Additional history exists GFR 11/24/2023 05/26/2023, 08/0 03/2023, 11/06/2022, Additional history exists CKD HGB USE SMARTSET 93456 05/26/202405/26, 06/18/2022, 10/17/2021, Additional history exists Depression [...] and were consensually agreed upon. Care Teams Decommissioning Well Site Manager Relationship Specialty Start Date End Date Eamon Felder, DO [address] [place] [address] PCP - General Family Medicine 08/25/18 documented as of this encounter
--- OUTSIDE RECORDS SUMMARY | 2023-07-30 05:19 | External Medical Summary | Summary of Care ---
Author Name Unknown Organization [facility] Address [address] [place] [address] Phone [phone] Care Team Providers Care Vulcanizer Operator Name Role Phone Bradford Eamon Clark BUSTAMANTE Primary Care Provider [phone] Reason for Visit * Reason Onset Date Comments Appointment Canceled 06/05/2023 HD Encounter Details Date Type Department Care Team Description 06/05/2023 Telephone Family Practice [facility] 200 [facility] [place] [address] Carolann Hoyt MD [address] [place] [address] Appointment Canceled (HD) Allergies Active Allergy Reactions Severity Noted Date Comments Dust 04/15/2011 Upper resp sx Other Allergy (See Comments) 10/23/2012 Perfume that contains kiah root causes nasal congestion documented as of this encounter (statuses as of 06/05/2023) Medications Medication Sig Dispensed Refills Start Date [...] (FLONASE) 50 MCG/ACT nasal spray Administer 1 [place] into nostril in the morning. 0 Active Ipratropium [place] 0.06 % Nasal Solution (Atrovent)Indicatio ns:Periodic breathing [...] Oral Tablet Extended Release 24 Hour (toPROL XL)Indications:Stone Finisher jorge atrial fibrillation (HCC) 1/2 tablet daily. 90 Tablet 3 04/14/2023 Active Doxycycline Monohydrate 50 MG Oral Capsule Take 50 mg by mouth daily. 30 Capsule 11 04/21/2023 Active Venlafaxine HCl ER 150 MG Oral Capsule Extended Release 24 Hour (Effexor XR) Take 300 mg (2 pills) every day 180 Capsule 1 05/06/2023 Active LORazepam 1 MG Oral Tablet (Ativan) Take 0.5 mg (1/2 pill) up to 4 times a day as needed for anxiety 60 Tablet 3 05/06/2023 Active documented as of this encounter (statuses as of 06/05/2023) Active Problems Problem Noted Date Sacroiliitis 11/06/2022 [...] as of this encounter (statuses as of 06/05/2023) Resolved Problems Problem Noted Date Resolved Date [...] as of this encounter (statuses as of 06/05/2023) Immunizations Name Administration Dates Next Due COVID-19 [...] stated he would have to reschedule, seeing civil rights attorney today. Pt rescheduled with PCP. Pt also advised BELA Stewart is saying scripts from [facility] while in Hospital have not been authorized yet. [facility] ph# [phone] Please follow up with pt about meds at [phone] documented in this encounter Plan of Treatment Upcoming Encounters Date Type Specialty Care Team Description 06/11/2023 Office Visit Family Medicine Eamon Felder, [address] [place] [address] 06/30/2023 Telemedicine Psychiatry Pippa Ryan MD [address] [place] [address] 08/11/2023 Office Visit Cardiology Russ Morley PA-C [address] [place] [address] 09/18/2023 Office Visit Nephrology Gi Castillo PA-C [address] [place] [address] 12/05/2023 Office Visit Sleep Disorders Herlinda Renee CRNP [address] [place] [address] 12/22/2023 Office Visit Family Medicine Eamon Felder DO [address] [place] [address] Scheduled Procedures Name Priority Associated Diagnoses Date/Ti me ESOPHAGOGASTRODUODENOSCOPY ( EGD), FLEXIBLE, TRANSORAL, DIAGNOSTIC Recall Acid reflux Health Maintenance Due Date Last Done Comments Zoster Vaccines (2 of 3) 09/07/2012 07/13/2012 COVID-19 Vaccine (5 - Pfizer series) 09/22/2021 07/28/2021, 07/02/2021, 11/16/2020, Additional history exists Albumin/Creatinine Ratio 06/18/2023 022, 10/19/2021, 01/04/2021, Additional history exists CKD PHOS USE SMARTSET 20499 06/18/202306/08, 08/17/2021, 03/14/2020, Additional history exists GFR 11/24/2023 05/26/2023, 08/0 03/2023, 11/06/2022, Additional history exists CKD HGB USE SMARTSET 54731 05/26/202405/26, 06/18/2022, 10/17/2021, Additional history exists Depression [...] and were consensually agreed upon. Care Teams Vulcanizer Operator Relationship Specialty Start Date End Date Eamon Felder, DO 200 [facility] [place] [address] PCP - General Family Medicine 08/25/18 documented as of this encounter
--- OUTSIDE RECORDS SUMMARY | 2023-07-30 05:19 | External Medical Summary ---
Author Name Unknown Address Unknown Organization [id number]:[facility] [place] [address] [facility] [address] Laboratory Report Ordering Provider Test Date Status LÍUS JEROME 06/06/2023 12:42:05 Final Observation Date Value Abnormality Reference (Units ) Status Triglyceride 06/06/2023 12:42:05 109 <=174 ( mg/dL) Final Triglyceride Reference Range s (mg/dL):
<150 Acceptable
150-174 Borderline high
175-499 High
>=500 Very high Cholesterol 06/06/2023 12:42:05 144 <200 (mg /dL) Final Total Cholesterol Reference Ranges (mg/dL):
<200 Desirable
200-239 Borderline high
>=240 High HDL 06/06/2023 12:42:05 40 >39 (mg/dL ) Final HDL Cholesterol Reference Ra nges (mg/dL):
>=60 High (Desirable)
<50 Low (Undesirable) For Females
<40 Low (Undesirable) For Males NON-HDL CHOLESTEROL 06/06/2023 12:42:05 104 <=159 (mg/dL) Final Non-HDL Cholesterol Referenc e Range (mg/dL):
<100 Target level for high risk ASCVD patient
<130 Optimal for general population
130-159 Near optimal for general population
160-189 Borderline High
190-219 High
>=220 Very High LDL, (calculated) 06/06/2023 12:42:05 82 <= 129 (mg/dL) Final LDL Cholesterol Reference Ra nges (mg/dL):
<70 Target level for high risk ASCVD patient
<100 Optimal for general population
100-129 Near optimal for general population
130-159 Borderline high
160-189 High
>=190 Very high Performing Location [facility] [place] [address] [place] [address]
--- OUTSIDE RECORDS SUMMARY | 2023-07-30 05:19 | External Medical Summary ---
Author Name Unknown Address Unknown Organization [id number]:[facility] [place] - [facility] [address] [facility] [address] Laboratory Report Ordering Provider Test Date Status LUÍS JEROME 06/06/2023 12:42:05 Final Observation Date Value Abnormality Reference (Units ) Status HbA1C 06/06/2023 12:42:05 6.0 Above high normal 4. 0-5.6 (%) Final The use of HbA1c to monitor glycemic status is based on normal hemoglobin and HbA composition. This test should not be used in patients with abnormal hemoglobin that affects the half life of the red blood cell or the in vivo glycation rates. Glucose, estimated average 06/06/2023 12:42:05 126 Above high normal <126 (mg/dL) Prateek sharpe Performing Location [facility] [place] [facility] [address] [place] [address]
--- OUTSIDE RECORDS SUMMARY | 2023-07-30 05:19 | External Medical Summary | Summary of Care ---
Author Name Unknown Organization [facility] Address [address] [place] [address] Phone [phone] Care Team Providers Care Mechanic Sound Technician Name Role Phone BradfordEamon Primary Care Provider [phone] Encounter Details Date Type Department Care Team Description 06/06/2023 Orders Only Psychiatry, [place] [address] [place], [place] [id number] Pippa Ryan MD [address] [place], [place] [id number] Allergies Active Allergy Reactions Severity Noted Date [...] (FLONASE) 50 MCG/ACT nasal spray Administer 1 [place] into nostril in the morning. 0 Active Ipratropium [place] 0.06 % Nasal Solution (Atrovent)Indicatio ns:Periodic breathing [...] Oral Tablet Extended Release 24 Hour (toPROL XL)Indications:Stage Manager jorge atrial fibrillation (HCC) 1/2 tablet daily. [...] for anxiety 60 Tablet 3 05/06/2023 Active ARIPiprazole 5 MG Oral Tablet (Abilify) 0.5 Tablets. 0 05/30/2023 Active Memantine HCl 10 MG Oral Tablet (Namenda) 0 06/02/2023 Active documented as of this encounter (statuses [...] Visit Family Medicine Eamon Felder, DO [address] [facility] [place] [address] 06/30/2023 Telemedicine Psychiatry Pippa Ryan MD [address] [place] [address] 08/11/2023 Office Visit Cardiology Russ Morley PA-C [address] [place] [address] 09/18/2023 Office Visit Nephrology Gi Castillo PA-C [address] [place] [address] 12/05/2023 Office Visit Sleep Disorders Herlinda Renee CRNP [address] [place] [address] 12/22/2023 Office Visit Family Medicine Eamon Felder, DO [address] [facility] [place] [address] Scheduled Procedures Name Priority Associated Diagnoses Date/Ti me ESOPHAGOGASTRODUODENOSCOPY ( EGD), FLEXIBLE, TRANSORAL, DIAGNOSTIC Recall Acid reflux Health Maintenance Due Date Last Done Comments Zoster Vaccines (2 of 3) 09/07/2012 07/13/2012 COVID-19 Vaccine (5 - Pfizer series) 09/22/2021 07/28/2021, 07/02/2021, 11/16/2020, Additional history exists Albumin/Creatinine Ratio 06/18/2023 022, 10/19/2021, 01/04/2021, Additional history exists CKD PHOS USE SMARTSET 01203 06/18/202306/08, 08/17/2021, 03/14/2020, Additional history exists GFR 11/24/2023 05/26/2023, 083, 11/06/2022, Additional history exists CKD HGB USE SMARTSET 34136 05/26/202405/26, 06/18/2022, 10/17/2021, Additional history exists Depression [...] and were consensually agreed upon. Care Teams Mechanic Sound Technician Relationship Specialty Start Date End Date Eamno Felder, DO [address] [place] [address] PCP - General Family Medicine 08/25/18 documented as of this encounter
--- OUTSIDE RECORDS SUMMARY | 2023-07-30 05:19 | External Medical Summary | Summary of Care ---
Author Name Unknown Organization [facility] Address [address] [place] [address] Phone [phone] Care Team Providers Care Associate Buyer Name Role Phone BradfordEamon Clark BUSTAMANTE Primary Care Provider [phone] Encounter Details Date Type Department Care Team Description 06/06/2023 Telephone [facility], [place] [address] [place] [address] Pippa Ryan MD [address] [place] [address] Allergies Active Allergy Reactions Severity [...] (FLONASE) 50 MCG/ACT nasal spray Administer 1 [place] into nostril in the morning. 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 He was started [...] Family Medicine Eamon Felder, DO [address] [place] [address] 06/30/2023 Telemedicine Psychiatry Pippa Ryan MD [address] [facility] [place] [address] 08/11/2023 Office Visit Cardiology Russ Morley PA-C [address] [place] [address] 09/18/2023 Office Visit Nephrology Gi Castillo PA-C [address] [place] [address] 12/05/2023 Office Visit Sleep Disorders Herlinda Renee CRNP [address] [place] [address] 12/22/2023 Office Visit Family Medicine Eamon Felder DO [address] [place] [address] Scheduled Procedures Name Priority Associated Diagnoses Date/Ti me ESOPHAGOGASTRODUODENOSCOPY ( EGD), FLEXIBLE, TRANSORAL, DIAGNOSTIC Recall Acid reflux Health Maintenance Due Date Last Done Comments Zoster Vaccines (2 of 3) 09/07/2012 07/13/2012 COVID-19 Vaccine (5 - Pfizer series) 09/22/2021 07/28/2021, 07/02/2021, 11/16/2020, Additional history exists Albumin/Creatinine Ratio 06/18/20232 022, 10/19/2021, 01/04/2021, Additional history exists CKD PHOS USE SMARTSET 03804 06/18/202306/08, 08/17/2021, 03/14/2020, Additional history exists GFR 11/24/2023 05/26/2023, 08/0 03/2023, 11/06/2022, Additional history exists CKD HGB USE SMARTSET 02201 05/26/202405/26, 06/18/2022, 10/17/2021, Additional history exists Depression [...] and were consensually agreed upon. Care Teams Associate Buyer Relationship Specialty Start Date End Date Eamon Felder, DO 200 [place] [address] PCP - General Family Medicine 08/25/18 documented as of this encounter
--- OUTSIDE RECORDS SUMMARY | 2023-07-30 05:19 | External Medical Summary | Summary of Care ---
Author Name Unknown Organization [facility] Address [address] [place] [address] Phone [phone] Care Team Providers Care Women Designer Name Role Phone Bradford Eamon Clark BUSTAMANTE Primary Care Provider [phone] Reason for Visit * Reason Onset Date Comments Appointment Canceled 06/05/2023 HD Encounter Details Date Type Department Care Team Description 06/05/2023 Telephone Family Practice [facility] 200 [facility] [place] [address] Carolann Hoyt MD [address] [place] [address] Appointment Canceled (HD) Allergies Active Allergy Reactions [...] (FLONASE) 50 MCG/ACT nasal spray Administer 1 [place] into nostril in the morning. 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 [...] 03/2016, Dr. 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 Thanks for helping Ricardo! * Telephone Encounter - Lorrie Jiménez - 06/05/2023 11:43 AM EDT Spoke with pt to confirm appt 06/05 HD// pt stated he would have to reschedule, seeing trust and estates attorney today. Pt rescheduled with PCP. Pt also advised BELA Stewart is saying scripts from [facility] while in Hospital have not been authorized yet. [facility] ph# [phone] Please follow up with pt about meds at [phone] documented in this encounter Plan of Treatment Upcoming Encounters Date Type Specialty Care Team Description 06/11/2023 Office Visit Family Medicine Eamon Felder DO [address] [place] [address] 06/30/2023 Telemedicine Psychiatry Pippa Ryan MD [address] [place] [address] 08/11/2023 Office Visit Cardiology Russ Morley PA-C [address] [place] [address] 09/18/2023 Office Visit Nephrology Gi Castillo PA-C [address] [place] [address] 12/05/2023 Office Visit Sleep Disorders Herlinda Renee CRNP [address] [place] [address] 12/22/2023 Office Visit Family Medicine Eamon Felder DO 200 [facility] [place] [address] Scheduled Procedures Name Priority Associated Diagnoses Date/Ti me ESOPHAGOGASTRODUODENOSCOPY ( EGD), FLEXIBLE, TRANSORAL, DIAGNOSTIC Recall Acid reflux Health Maintenance Due Date Last Done Comments Zoster Vaccines (2 of 3) 09/07/2012 07/13/2012 COVID-19 Vaccine (5 - Pfizer series) 09/22/2021 07/28/2021, 07/02/2021, 11/16/2020, Additional history exists Albumin/Creatinine Ratio 06/18/2023 022, 10/19/2021, 01/04/2021, Additional history exists CKD PHOS USE SMARTSET 78178 06/18/202306/08, 08/17/2021, 03/14/2020, Additional history exists GFR 11/24/2023 05/26/2023, 08/0 03/2023, 11/06/2022, Additional history exists CKD HGB USE SMARTSET 22224 05/26/202405/26, 06/18/2022, 10/17/2021, Additional history exists Depression [...] and were consensually agreed upon. Care Teams Women Designer Relationship Specialty Start Date End Date Eamon Felder, DO 200 [place] [address] PCP - General Family Medicine 08/25/18 documented as of this encounter
--- OUTSIDE RECORDS SUMMARY | 2023-07-30 05:19 | External Medical Summary | Summary of Care ---
Author Name Unknown Organization [facility] Address [address] [place] [address] Phone [phone] Care Team Providers Care Supervisor Testing Name Role Phone BradfordEamon Primary Care Provider [phone] Encounter Details Date Type Department Care Team Description 06/06/2023 Telephone [facility] [place] [address] [place] [address] Ppipa Ryan MD [address] [place] [address] Allergies Active Allergy Reactions Severity [...] 5 04/24/2018 Active Clindamycin Phosphate 1 % SWABIndications:R osacea Apply to face daily as needed 60 Each 1 08/19/2018 Active fluticasone (FLONASE) 50 MCG/ACT nasal spray Administer 1 [place] into nostril in the morning. 0 Active Ipratropium [place] 0.06 % Nasal Solution (Atrovent)Indicat ions:Periodic breathing instill 2 sprays into each nostril three times a day if needed for allergies 0 10/24/2020 Active [place] 2 % External Pad (Erythromycin)Ind [...] 01/31/2023 Active Torsemide 10 MG Oral Tablet (Demadex)Indicati ons:Chronic systolic congestive heart failure (HCC) Take one tablet by mouth only as needed. 60 Tablet 3 01/31/2023 Active Eliquis 2.5 MG Oral Tablet (Apixaban)Indicat [...] every day 30 Tablet 4 06/06/2023 Active ARIPiprazole 5 MG Oral Tablet (Abilify) 0.5 Tablets. 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 He was [...] Visit Family Medicine Eamon Felder, DO [address] [facility], [place] [address] 06/30/2023 Telemedicine Psychiatry Pippa Ryan MD [address] [facility] [place] [id number] 08/11/2023 Office Visit Cardiology Russ Morley PA-C [address] [place] [address] 09/18/2023 [facility] [address] 12/05/2023 Office Visit Sleep Disorders Herlinda Renee CRNP [address] [place] [address] 12/22/2023 Office Visit Family Medicine [facility] [address] [facility] [address] Scheduled Procedures Name Priority Associated Diagnoses Date/Ti me ESOPHAGOGASTRODUODENOSCOPY ( EGD), FLEXIBLE, TRANSORAL, DIAGNOSTIC Recall Acid reflux Health Maintenance Due Date Last Done Comments Zoster Vaccines (2 of 3) 09/07/2012 07/13/2012 COVID-19 Vaccine (5 - Pfizer series) 09/22/2021 07/28/2021, 07/02/2021, 11/16/2020, Additional history exists Albumin/Creatinine Ratio 06/18/2023 022, 10/19/2021, 01/04/2021, Additional history exists CKD PHOS USE SMARTSET 63061 06/18/202306/08, 08/17/2021, 03/14/2020, Additional history exists GFR 11/24/2023 05/26/2023, 08/0 03/2023, 11/06/2022, Additional history exists CKD HGB USE SMARTSET 85745 05/26/202405/26, 06/18/2022, 10/17/2021, Additional history exists Depression [...] and were consensually agreed upon. Care Teams Supervisor Testing Relationship Specialty Start Date End Date Eamon Felder, DO [address] [place] [address] PCP - General Family Medicine 08/25/18 documented as of this encounter
--- OUTSIDE RECORDS SUMMARY | 2023-07-30 05:20 | External Medical Summary | Summary of Care ---
Author Name Unknown Organization [facility] Address [address] [place] [address] Phone [phone] Care Team Providers Care Director Report Name Role Phone Bob Feledre Clark BUSTAMANTE Primary Care Provider [phone] Reason for Visit * Reason Comments Outpatient Testing Encounter Details Date Type Department Care Team Description 05/26/2023 Laboratory Laboratory [facility] [address] [place] [id number] [facility] [address] [place] [address] Stage 3b chronic kidney disease Allergies Active Allergy Reactions Severity Noted Date Comments Dust 04/15/2011 Upper resp sx Other Allergy (See Comments) 10/23/2012 Perfume that contains kiah root causes nasal congestion documented as of this encounter (statuses as of 05/26/2023) Medications Medication Sig Dispensed Refills Start Date [...] (FLONASE) 50 MCG/ACT nasal spray Administer 1 [place] into nostril in the morning. 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 [...] as of this encounter (statuses as of 05/26/2023) Active Problems Problem Noted Date Sacroiliitis 11/06/2022 [...] as of this encounter (statuses as of 05/26/2023) Resolved Problems Problem Noted Date Resolved Date [...] as of this encounter (statuses as of 05/26/2023) Immunizations Name Administration Dates Next Due COVID-19 mRNA, LNP-s, No Pre serve, 2-Dose Series (Pfizer) 07/28/2021,11/16/2020,10/17/2020 Pneumococcal Conjugate Vacc, 13 Valent (Prevnar) 10/26/2015 Pneumococcal Polysaccharide PPV23 (Pneumovax) 06/13/2008 Season Influenza, Quad, PF, Adjuvanted, 65+ Yrs, IM (FLUAD) 05/31/2020 Seasonal Influenza, PF, 6 mo ns & Above, IM , (Flulaval) 05/22/2018,06/25/2017 Seasonal Influenza, Quadriva lent Hd (Fluzone Hd) 06/21/2022,07/26/2021 Seasonal Influenza, Quadriva lent, No Preserve, IM [...] Encounters Date Type Specialty Care Team Description 05/27/2023 Telemedicine Psychiatry Pippa Ryan MD [address] [place] [address] 08/11/2023 Office Visit Cardiology Russ Morley PA-C [address] [place] [address] 09/18/2023 Office Visit Nephrology Gi Castillo PA-C [address] [place] [facility] [place] [address] 12/05/2023 Office Visit Sleep Disorders Herlinda Renee CRNP [address] [place] [address] 12/22/2023 Office Visit Family Medicine Eamon Felder DO [address] [place] [address] Pending Results Name Type Priority Associated Diagnoses Date /Time BASIC METABOLIC PANEL Lab Routine Stage 3b chronic kidney disease 05/26/2023 1:43 PM EDT Scheduled Procedures Name Priority Associated Diagnoses Date/Ti me ESOPHAGOGASTRODUODENOSCOPY ( EGD), FLEXIBLE, TRANSORAL, DIAGNOSTIC Recall Acid reflux Health Maintenance Due Date Last Done Comments Zoster Vaccines (2 of 3) 09/07/2012 07/13/2012 COVID-19 Vaccine (4 - Pfizer series) 09/22/2021 07/28/2021, 11/16/2020, 10/17/2020 Depression Screening 10/30/2021 10/30/2020 Influenza Vaccine (FLU shot) (#1) 2023 06/21/2022, 07/26/2021, 05/31/2020, Additional history exists Albumin/Creatinine Ratio 06/18/20232 022, 10/19/2021, 01/04/2021, Additional history exists CKD HGB USE SMARTSET 77709 06/18/202305/26, 06/18/2022, 10/17/2021, Additional history exists CKD PHOS USE SMARTSET 27192 06/18/202306/08, 08/17/2021, 03/14/2020, Additional history exists GFR 10/15/2023 04/14/2023, 03/0 09/2022, 06/18/2022, Additional history exists DTaP,Tdap,and Td Vaccines (2 - Td or Tdap) 10/26/2025 10/26/2015, 06/13/2008 Pneumococcal Vaccine: 65+ Years Completed 10/26/2015, 06/13/2008 COLONOSCOPY-EVERY 5 YRS AGES 18-100 Discontinued 04/05/2020, 04/05/2020, 11/08/2014, Additional history exists GARDASIL-HPV IMMUNIZATION SERIES Aged [...] Not on filedocumented as of this encounter Procedures Procedure Name Priority Date/Time Associated Diagnosis Comments HGB Routine 05/26/2023 1:43 PM EDT Stage 3b chronic kidney disease documented in this encounter Results * HGB (05/26/2023 1:43 PM EDT) HGB 15.1 14.0 - 16.8 g/dL 05/26/2023 1:56 PM EDT [facility] [place] 56-02 Blood Venous blood specimen / Unknown Venipuncture / Unknown 05/26/2023 1:43 PM EDT 05/26/2023 1:43 PM EDT Eamon Felder DO LAB BLOOD ORDERABLE [facility] 56-[address] [place] [address] documented in this encounter Visit Diagnoses Diagnosis Stage 3b chronic kidney disease documented in this encounter Advance Directives Latest Code Status on File Code Status Date Activated Date Inactivated Comments Full Code 07/07/2020 12:46 AM 07/12/2020 5:11 PM Thi s order reflects the patients wishes and were consensually agreed upon. Care Teams Director Report Relationship Specialty Start Date End Date Newhouser, Eamon D, DO [address] [place] [address] PCP - General Family Medicine 08/25/18 documented as of this encounter
--- OUTSIDE RECORDS SUMMARY | 2023-07-30 05:20 | External Medical Summary ---
Author Name Unknown Address Unknown Organization K09:[facility] [place] [address] Laboratory Report Ordering Provider Test Date Status KENNY AGUILERA 05/26/2023 13:43:43 Final Observation Date Value Abnormality Reference (Units ) Status Hemoglobin 05/26/2023 13:43:43 15.1 14.0-16.8 (g/dL) Final Performing Location [facility] [place] [address]
--- OUTSIDE RECORDS SUMMARY | 2023-07-30 05:20 | External Medical Summary | Summary of Care ---
Author Name Unknown Organization [facility] Address [address] [place] [address] Phone [phone] Care Team Providers Care Vender Name Role Phone AlfredEamon mitchell Primary Care Provider [phone] Reason for Visit * Reason Comments case management Encounter Details Date Type Department Care Team Description 05/07/2023 Body FitterErp Consultant Internal Medicine [facility] [address] [place], [place] [phone] Cecilia Ríos, RN [address] [place] [address] Medical home patient encounter* Allergies Active Allergy Reactions Severity Noted Date Comments Dust 04/15/2011 Upper resp sx Other Allergy (See Comments) 10/23/2012 Perfume that contains kiah root causes nasal congestion documented as of this encounter (statuses as of 05/07/2023) Medications Medication Sig Dispensed Refills Start Date [...] (FLONASE) 50 MCG/ACT nasal spray Administer 1 [place] into nostril in the morning. 0 Active Ipratropium [place] 0.06 % Nasal Solution (Atrovent)Indicatio ns:Periodic breathing [...] 1,000 mcg by mouth daily. 0 Active Allopurinol 100 MG Oral Tablet (Zyloprim)Indicatio ns:Acute sinusitis TAKE BY MOUTH 2 TABLETS IN THE MORNING. 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 [...] as of this encounter (statuses as of 05/07/2023) Active Problems Problem Noted Date Sacroiliitis 11/06/2022 [...] as of this encounter (statuses as of 05/07/2023) Resolved Problems Problem Noted Date Resolved Date [...] as of this encounter (statuses as of 05/07/2023) Immunizations Name Administration Dates Next Due COVID-19 [...] as of this encounter Progress Notes * Cecilia Ríos RN - 05/07/2023 10:12 AM EDT Follow-up Routine Attempted Phone Call First Attempt Call Outcome Left Voicemail/Message Plan To attempt another outreach documented in this encounter Plan of Treatment Upcoming Encounters Date Type Specialty Care Team Description 05/07/2023 Office Visit Sleep Disorders Herlinda Renee CRNP [address] [place] [address] 05/26/2023 Office Visit Family Medicine Eamon Felder DO [address] [place] [address] 05/27/2023 Telemedicine Psychiatry Pippa Ryan MD [address] [place] [address] 08/11/2023 Office Visit Cardiology Russ Morley PA-C [address] [place] [address] 09/18/2023 Office Visit Nephrology Gi Castillo PA-C [address] [place] [address] Scheduled Procedures Name Priority Associated Diagnoses Date/Ti me ESOPHAGOGASTRODUODENOSCOPY ( EGD), FLEXIBLE, TRANSORAL, DIAGNOSTIC Recall Acid reflux Health Maintenance Due Date Last Done Comments Zoster Vaccines (2 of 3) 09/07/2012 07/13/2012 COVID-19 Vaccine (4 - Pfizer series) 09/22/2021 07/28/2021, 11/16/2020, 10/17/2020 Depression Screening, Annual for Pts 12 and Over 10/30/2021 10/30/2020 Influenza Vaccine (FLU shot) (#1) 2023 06/21/2022, 07/26/2021, 05/31/2020, Additional history exists Albumin/Creatinine Ratio 06/18/2023 022, 10/19/2021, 01/04/2021, Additional history exists CKD HGB USE SMARTSET 06056 06/18/202306/18, 10/17/2021, 10/17/2021, Additional history exists CKD PHOS USE SMARTSET 91208 06/18/202306/08, 08/17/2021, 03/14/2020, Additional history exists GFR 10/15/2023 04/14/2023, 0309/2022, 06/18/2022, Additional history exists DTaP,Tdap,and Td Vaccines [...] as of this encounter Visit Diagnoses Diagnosis Medical home patient encounter- Primary Other specified examination documented in this encounter Advance Directives Latest Code Status on File Code Status Date Activated Date Inactivated Comments Full Code 07/07/2020 12:46 AM 07/12/2020 5:11 PM Thi s order reflects the patients wishes and were consensually agreed upon. Care Teams Vender Relationship Specialty Start Date End Date Eamon Felder, DO [address] [place] [address] PCP - General Family Medicine 08/25/18 documented as of this encounter
--- OUTSIDE RECORDS SUMMARY | 2023-07-30 05:20 | External Medical Summary | Summary of Care ---
Author Name Unknown Organization [facility] Address [address] [place] [address] Phone [phone] Care Team Providers Care Room Service Manager Name Role Phone BradfordEamon Clark BUSTAMANTE Primary Care Provider [phone] Encounter Details Date Type Department Care Team Description 05/27/2023 [facility] [address] [place] [address] Pippa Ryan MD [address] [place] [address] Major depressive disorder, recurrent episode, moderate (HCC)*; Generalized anxiety disorder Allergies Active Allergy Reactions Severity Noted Date Comments Dust 04/15/2011 Upper resp sx Other Allergy (See Comments) 10/23/2012 Perfume that contains kiah root causes nasal congestion documented as of this encounter (statuses as of 05/28/2023) Medications Medication Sig Dispensed Refills Start Date [...] (FLONASE) 50 MCG/ACT nasal spray Administer 1 [place] into nostril in the morning. 0 Active Ipratropium [place] 0.06 % Nasal Solution (Atrovent)Indicatio ns:Periodic breathing [...] Oral Tablet Extended Release 24 Hour (toPROL XL)Indications:Animal Physiologist jorge atrial fibrillation (HCC) 1/2 tablet daily. [...] as of this encounter (statuses as of 05/28/2023) Active Problems Problem Noted Date Sacroiliitis 11/06/2022 [...] as of this encounter (statuses as of 05/28/2023) Resolved Problems Problem Noted Date Resolved Date [...] as of this encounter (statuses as of 05/28/2023) Immunizations Name Administration Dates Next Due COVID-19 [...] * Patient Instructions* Pippa Ryan MD - 05/27/2023 11:37 PM EDT Keep taking B12 1000 mcg every day. Keep taking melatonin 5 mg every night. Keep taking Ativan (lorazepam) 0.5 mg (1/2 pill) 4 times a day as needed for anxiety. Keep taking Effexor (venlafaxine) XR 300 mg (2 pills) every day. Follow-up with me on--Mon 06/30/23 at 11am --Call the clinic at [phone] or [place] [employer] message me if you have any problems or questions, or you need to be seen sooner documented in this encounter Progress Notes * Pippa Ryan MD - 05/27/2023 11:39 PM EDT After connecting to the patient [...] He was last seen in clinic on 05/05/2023. At that visit: --Venlafaxine was continued --Lorazepam was continued --Melatonin was continued --B12 was continued Overall, how doing since last visit: not so good Patient describes mood as: 'anxious' and 'stressed'. Involved in a legal case involving property with his ex-girlfriend, which has been prolonged and stressful. This has worsened his IBS which also worsens his mood. He is feeling much more anxious and stressed, but feels it is due to this legal issue. We discussed a medication change but he wasnts todefer for now, given the IBS worsening as well as his hope the stressor will be resolved soon. We spent most of the visit discussing ways to cope with this stressor. Current medications helping: yes Medication problems or side effects: no Current symptoms, problems, and functioning: Low mood: yes Anxiety: yes Sleep: ok Appetite: Disrupted by IBS Level of participation in activities: ok Suicidal ideation/passive wish to : Passive wish [...] to hang yourself, etc. x Current stressors: physical health issues and legal case about property. REVIEW OF SYSTEMS: Review of systems including cardiac, pulmonary, constitutional, dermatologic, rheumatologic, GI, , MSK, psychiatric, and neurologic systems was negative except as in HPI HOME MEDICATIONS: B12 1000 mcg qday Venlafaxine XR 300 mg qday (last increased 12/23/2022) Melatonin 5 mg qhs Lorazepam 0.5 mg QID PRN (last increased [...] HR: BP: RR: SaO2: T: Weight: BMI: 05/07/23 86 04/14/23 92 04/07/23 81 03/06/23 68 05/07/23 122/74 04/14/23 118/68 04/07/23 142/88 03/06/23 132/96 05/07/23 18 04/14/23 16 04/07/23 16 03/06/23 16 05/07/23 37.1 C (98.7 F) 04/14/23 36.8 C (98.3 F) 04/07/23 36.7 C (98.1 F) 03/06/23 36.5 C (97.7 F) 05/07/23 108.9 kg (240 lb) 04/14/23 108.9 kg (240 lb) 04/07/23 109.8 kg (242 lb) 02/25/23 111.1 kg (245 lb) 05/07/23 33.47 kg/m 04/14/23 33.47 kg/m 04/07/23 33.75 kg/m 02/25/23 33.92 kg/m MENTAL STATUS EXAM: Overall: NAD Alertness: alert and awake Cooperation / participation: good Fluency: language fluent Comprehension: intact Conversation: appropriate Thought process: logical and linear Associations: intact Thought Content: PWD: no SI: no HI: none Hallucinations: none Delusions: none Mood: 'anxious' and 'stressed' Affect: full and mood-congruent Speech: rate normal, [...] PLAN: MDD, generalized anxiety disorder, OCD: --Continue venlafaxine XR 300 mg qday. --Continue lorazepam 0.5 mg QID PRN. --Continue melatonin 5 mg qhs. --Patient is aware venlafaxine is above FDA-approved max dose, and gives informed consent after discussion of risks/benefits --Future options: aripiprazole, lurasidone, retrial of bupropion, trazodone, trazodone, gabapentin,lamotrigine, T3 --Mood tends to worsen in late July; will have him restart lightbox Jul 09 --Encourage psychotherapy; referred at [facility] and also gave [facility] teletherapy info 08/13/22 --Exercise: not doing currently; [...] cognition, maybe worsened IBS (patient not sure) Cognitive disorder NOS: --Continue to avoid anticholinergic [...] of the maximum recommended dose. Note: The basket bottom machine operator recommends a 25% dose reduction in patients [...] renal failure Labs: --CBC 10/17/2021: WNL --BMP 04/14/23: eGFR low at 49; Creatinine high at 1.5; otherwise WNL --BMP 11/06/22: eGFR low at [...] is present. There is mild pulmonary regurgitation. --Lipids 07/08/2020: Tg 118; HDL low at 35; LDL 87 --EKG 11/22/22: QTc Prolonged at 467 ms --EKG 08/07/2021: QTc Prolonged at 465 ms Safety/crisis planning: --Reviewed safety/crisis planning --No access to guns. F/u: --Mon 06/30/23 at 11am --5 weeks Outpatient Adult Psychiatry Treatment Plan for visit 05/27/2023 Treatment plan was developed on 05/05/2023, treatment will continue to focus on goals listed there. Treatment update will occur when clinically indicated or by 11/05/2023. Crisis plan developed on 05/05/2023; see note of that date for details. --------- documented in this encounter Plan of Treatment Upcoming Encounters Date Type Specialty Care Team Description 06/30/2023 [facility] [address] [facility] [address] 08/11/2023 Office Visit Cardiology Russ Morley PA-C [address] [facility] [place] [address] 09/18/2023 [facility] [address] 12/05/2023 Office Visit Sleep Disorders Herlinda Renee CRNP [address] [place] [address] 12/22/2023 Office Visit Family Medicine Eamon Felder, DO [address] [place] [address] Scheduled Procedures Name Priority Associated Diagnoses Date/Ti me ESOPHAGOGASTRODUODENOSCOPY ( EGD), FLEXIBLE, TRANSORAL, DIAGNOSTIC Recall Acid reflux Health Maintenance Due Date Last Done Comments Zoster Vaccines (2 of 3) 09/07/2012 07/13/2012 COVID-19 Vaccine (4 - Pfizer series) 09/22/2021 07/28/2021, 11/16/2020, 10/17/2020 Albumin/Creatinine Ratio 06/18/20232 022, 10/19/2021, 01/04/2021, Additional history exists CKD PHOS USE SMARTSET 22969 06/18/202306/08, 08/17/2021, 03/14/2020, Additional history exists GFR 11/24/2023 05/26/2023, 03/2023, 11/06/2022, Additional history exists CKD HGB USE SMARTSET 82595 05/26/202405/26, 06/18/2022, 10/17/2021, Additional history exists Depression [...] and were consensually agreed upon. Care Teams Room Service Manager Relationship Specialty Start Date End Date Eamon Felder, DO [address] [place] [address] PCP - General Family Medicine 08/25/18 documented as of this encounter
--- OUTSIDE RECORDS SUMMARY | 2023-07-30 05:20 | External Medical Summary | Summary of Care ---
Author Name Unknown Organization [facility] Address [address] [place] [address] Phone [phone] Care Team Providers Care Bottle House Quality Control Technician Name Role Phone Bradford Eamon Clark BUSTAMANTE Primary Care Provider [phone] Reason for Visit * Reason Comments Follow Up Sleep Apnea Encounter Details Date Type Department Care Team Description 05/07/2023 [facility] [address] [facility] [place] [phone] Herlinda Renee CRNP [address] [facility] [address] MYRON (obstructive sleep apnea)*; Periodic breathing; Chronic systolic congestive heart failure (HCC) Allergies Active Allergy Reactions Severity Noted Date Comments Dust 04/15/2011 Upper resp sx Other Allergy (See Comments) 10/23/2012 Perfume that contains kiah root causes nasal congestion documented as of this encounter (statuses as of 05/08/2023) Medications Medication Sig Dispensed Refills Start Date [...] (FLONASE) 50 MCG/ACT nasal spray Administer 1 [place] into nostril in the morning. 0 Active Ipratropium [place] 0.06 % Nasal Solution (Atrovent)Indicati ons:Periodic breathing [...] for anxiety 60 Tablet 3 05/06/2023 Active Allopurinol 100 MG Oral Tablet (Zyloprim)Indicati ons:Acute sinusitis TAKE BY MOUTH 2 TABLETS IN THE MORNING. 180 Tablet 3 01/06/2023 3 Discontinue d(Patient preference/ discontinua tion) documented as of this encounter (statuses as of 05/08/2023) Active Problems Problem Noted Date Sacroiliitis 11/06/2022 [...] as of this encounter (statuses as of 05/08/2023) Resolved Problems Problem Noted Date Resolved Date [...] as of this encounter (statuses as of 05/08/2023) Immunizations Name Administration Dates Next Due COVID-19 [...] Sign Reading Time Taken Comments Blood Pressure 122/74 05/07/2023 3:42 PM EDT Pulse 86 05/07/2023 3:42 PM EDT Temperature 37.1 C (98.7 F) 05/07/2023 3:42 PM ED T Respiratory Rate 18 05/07/2023 3:42 PM EDT Oxygen Saturation 95% 05/07/2023 3:42 PM EDT Inhaled Oxygen Concentration - - Weight 108.9 kg (240 lb) 05/07/2023 3:42 PM EDT Height 180.3 cm (5' 11") 05/07/2023 3:42 PM EDT Body Mass Index 33.47 05/07/2023 3:42 PM EDT documented in this encounter Patient Instructions * Patient Instructions* NAZANIN Mckeon - 05/07/2023 4:21 PM EDT Continue use of CPAP/BIPAP to include all periods of sleep. Recommended total sleep time for adults is 7-9 hours. Reminder to clean CPAP/BIPAP supplies weekly and change supplies as needed. Work at making lifestyle changes to loss weight, as weight loss often results in improvement of sleep disordered breathing. Daily exercise has been shown to improve sleep quality. Avoid driving or engaging in any activity that requires full alertness if feeling sleepy, drowsy orotherwise impaired. documented in this encounter Progress Notes * NAZANIN Mckeon - 05/07/2023 3:44 PM EDT [facility] Ricardo Gray is a 82 year old male seen today for routine follow-up of MYRON treated on auto CPAP.Medical history significant for CHF, chronic AFib, CKD, hyperparathyroidism and obesity Sleep Testing/History: Initially presented in 2011 with poor sleep quality, non refreshing sleep, snoring and daytime sleepiness. [place] 12. - PSG 05/07/2012: AHI 5.9 (2 CA, 26 OA, 15 H), REM AHI 1, 56 minutes REM, SpO2 yanique 86%, PLMI 56 - Auto CPAP initiated 04/[address] Kavon Lance - Pressures increased, last visit with NAZANIN Guillen in 2020 Interim History: CPAP used nightly, noting ongoing benefit with used. He denies tolerance issues related to treatment. Sleep is refreshing if he's able to get 9-10 hours. He may nap in his recliner without CPAP some days. Denies drowsy driving. Taking lorazepam 0.5-1mg nightly. Lorazepam used daily for >5 years. Compliance Data: Report date: last 30 days ending 05/03/2023 % total days used: 100 % days used > 4 hours: 100 Average hours per day used: 8 hours 20 mins Large leak: 0 mins rAHI: 10.9 (CA 4.3, OA 4.7, H 1.9) Pressures: mean 12.9, p90% 15 Periodic breathing 47% [place] [facility] Device: [place] [employer] (replaced by [employer]' recall) Settings: 12-20 cmH20 Interface Type: FFM - F20 AirTouch Humidifier: used with benefit Cleaning: By hand routinely [place] Sleepiness Scale Question 05/07/2023 3:45 PM EDT - Filed by Mary Cuevas LPN What is the chance you will doze off in the following situation? Sitting and reading Slight chance of dozing Watching TV No chance of dozing Sitting inactive in a public place, such as a theater or meeting High chance of dozing As a passenger in a car for an hour without a break High chance of dozing Lying down to rest in the afternoon when circumstances permit High chance of dozing When sitting and talking to someone No chance of dozing When sitting quietly after lunch without alcohol Slight chance of dozing In a car, while stopped for a few minutes in traffic No chance of dozing Score (range: 0 - 24) 11 Review of Systems Constitutional: Weight down 15 lbs HENT: Positive for rhinorrhea. Negative for congestion. Respiratory: Positive for shortness of breath (felt to be out of shape). Cardiovascular: Positive for leg swelling (compression stockings not worn for the past week, on today). Negative for chest pain. Neurological: Positive for weakness. Psychiatric/Behavioral: Negative for sleep disturbance. Problem List: Patient Active Problem List Diagnosis Code Adjustment [...] I48.20 Major depressive disorder, recurrent episode, moderate (HCC) F33.1 Periodic breathing R06.3 Hypersomnolence disorder G47.10 Periodic limb movement disorder (PLMD) G47.61 Stage 3b chronic kidney disease N18.32 Chronic systolic congestive heart failure (HCC) I50.22 Sacroiliitis (HCC) M46.1 HPTH (hyperparathyroidism) ([facility]) E21.3 Current Medications: Outpatient Medications Marked as Taking for the 05/07/23 encounter (Office Visit) with NAZANIN Elliott Medication Sig LORazepam 1 MG Oral Tablet (Ativan) Take 0.5 mg (1/2 pill) up to 4 times a day as needed for anxiety Venlafaxine HCl ER 150 MG Oral Capsule Extended Release 24 Hour (Effexor XR) Take 300 mg (2 pills) every day Doxycycline Monohydrate 50 MG Oral Capsule Take 50 mg by mouth daily. Metoprolol Succinate ER 25 MG Oral Tablet Extended Release 24 Hour (toPROL XL) 1/2 tablet daily. Hyoscyamine Sulfate 0.125 MG Sublingual Tablet Sublingual (Levsin) One pill by mouth or under the tongue every 4 hours as needed for abdominal pain Eliquis 2.5 MG Oral Tablet (Apixaban) TAKE 1 TABLET BY MOUTH TWICE A DAY Pantoprazole Sodium 40 MG Oral Tablet Delayed Release (Protonix) Take 1 Tablet by mouth in the morning. Tamsulosin HCl 0.4 MG Oral Capsule (Flomax) TAKE 1 CAPSULE AT BEDTIME B-12 1000 MCG Oral Tablet Take 1,000 mcg by mouth daily. Albuterol Sulfate HFA 108 (90 Base) MCG/ACT Inhalation Aerosol Solution INHALE 2 PUFFS EVERY 4 HOURS NEEDED FOR COUGH OR WHEEZING CPAP every night at bedtime. [place] 2 % External Pad (Erythromycin) apply topically TO FACE DAILY FOR ROSACEA as directed by prescriber Ipratropium [place] 0.06 % Nasal Solution (Atrovent) instill 2 sprays into each nostril three timesa day if needed for allergies fluticasone (FLONASE) 50 MCG/ACT nasal spray Administer 1 [place] into nostril in the morning. Clindamycin Phosphate 1 % SWAB Apply to face daily as needed Vardenafil HCl (LEVITRA) 20 MG Tablet Take 1 Tab by mouth daily as needed for Erectile Dysfunction.1 hour prior to intercourse, no more than 1 dose per day. Physical Exam: BP 122/74 | Pulse 86 | Temp 37.1 C (98.7 F) (Tympanic) | Resp 18 | Ht 1.803 m (5' 11") | Wt 108.9 kg (240 lb) | SpO2 95% | BMI 33.47 kg/m | BSA 2.34 m Constitutional: Alert, oriented and in no acute distress Skin: No abnormal mask markings on face Cardio: Regular rate and rhythm, no murmur, +2 left LE, trace right LE Chest: Normal respiratory effort at rest, equal breath sounds, clear to auscultation Neuro: Fluent speech Psych: Appropriate mood and affect. Wt Readings from Last 5 Encounters: 05/07/23 108.9 kg (240 lb) 04/14/23 108.9 kg (240 lb) 04/07/23 109.8 kg (242 lb) 02/25/23 111.1 kg (245 lb) 01/31/23 110.7 kg (244 lb) Assessment & Plan: Encounter Diagnoses Name Primary? MYRON (obstructive sleep apnea) Yes Periodic breathing Chronic systolic congestive heart failure (HCC) Mild obstructive sleep apnea based on AHI criteria associated diagnosed in 2011. He is compliant and benefiting with PAP treatment. Residual AHI on aPAP 12-20 is 10.7 with 4.3 ANAI and 47% periodic breathing. Recommended optimizing management of CHF per Cardiology. Increase aPAP to 13-20 pressure. His device will be 5 years old in the coming months. Mr. Gray has requested a replacement device at that time. Orders will be placed accordingly. DME order: In need of headgear as he never received the one that was supposedly shipped Change to aPAP 13-20 cm H2O Patient Instructions Continue use of CPAP/BIPAP to include all periods of sleep. Recommended total sleep time for adults is 7-9 hours. Reminder to clean CPAP/BIPAP supplies weekly and change supplies as needed. Work at making lifestyle changes to loss weight, as weight loss often results in improvement of sleep disordered breathing. Daily exercise has been shown to improve sleep quality. Avoid driving or engaging in any activity that requires full alertness if feeling sleepy, drowsy orotherwise impaired. NAZANIN Webb Pulmonary & Sleep Medicine [facility] I spent a total of 40-54 minutes (exact time 40 mins) on the date of service in preparation, delivery, and documentation of the care provided to Ricardo Gray excluding any time spent in the performance of separately billed services. documented in this encounter Nursing Notes * Mary Cuevas LPN - 05/07/2023 3:46 PM EDT Chief Complaint Patient presents with Follow Up Sleep Apnea Cpap DME: [facility] [place] Sleepiness Scale Question 05/07/2023 3:45 PM EDT - Filed by Mary Cueavs LPN What is the chance you will doze off in the following situation? Sitting and reading Slight chance of dozing Watching TV No chance of dozing Sitting inactive in a public place, such as a theater or meeting High chance of dozing As a passenger in a car for an hour without a break High chance of dozing Lying down to rest in the afternoon when circumstances permit High chance of dozing When sitting and talking to someone No chance of dozing When sitting quietly after lunch without alcohol Slight chance of dozing In a car, while stopped for a few minutes in traffic No chance of dozing Score (range: 0 - 24) 11 documented in this encounter Plan of Treatment Upcoming Encounters Date Type Specialty Care Team Description 05/26/2023 Office Visit Family Medicine Eamon Felder, DO [address] [place] [address] 05/27/2023 Telemedicine Psychiatry Pippa Ryan MD [address] [place] [address] 08/11/2023 Office Visit Cardiology Russ Morley PA-C [address] [place] [address] 09/18/2023 Office Visit Nephrology Gi Castillo PA-C [address] [facility], [place] [id number] 12/05/2023 Office Visit Sleep Disorders Herlinda Renee CRNP [address] [place] [address] Scheduled Procedures Name Priority Associated Diagnoses Date/Ti [...] 07/26/2021, 05/31/2020, Additional history exists Albumin/Creatinine Ratio 06/18/202306/18/2 022, 10/19/2021, 01/04/2021, Additional history exists CKD HGB USE SMARTSET 00042 06/18/202306/18, 10/17/2021, 10/17/2021, Additional history exists CKD PHOS USE SMARTSET 68822 06/18/202306/08, 08/17/2021, 03/14/2020, Additional history exists GFR 10/15/2023 04/14/2023, 03/09/2022, 06/18/2022, Additional history exists DTaP,Tdap,and Td Vaccines [...] as of this encounter Visit Diagnoses Diagnosis MYRON (obstructive sleep apnea)- Primary Obstructive sleep apnea (adult) (pediatric) Periodic breathing [place] respiration Chronic systolic congestive heart failure (HCC) Chronic systolic heart failure documented in this encounter Advance Directives Latest Code Status on File Code Status Date Activated Date Inactivated Comments Full Code 07/07/2020 12:46 AM 07/12/2020 5:11 PM Thi s order reflects the patients wishes and were consensually agreed upon. Care Teams Bottle House Quality Control Technician Relationship Specialty Start Date End Date Eamon Felder, DO [address] [place] [address] PCP - General Family Medicine 08/25/18 documented as of this encounter
--- OUTSIDE RECORDS SUMMARY | 2023-07-30 05:20 | External Medical Summary ---
Author Name Unknown Address Unknown Organization K09[facility] [place] [address] Laboratory Report Ordering Provider Test Date Status KENNY AGUIELRA 05/26/2023 13:43:43 Final Observation Date Value Abnormality Reference (Units ) Status BUN 05/26/2023 13:43:43 20 6-20 (mg/dL) Final Creatinine 05/26/2023 13:43:43 1.3 Above high normal 0.6-1.2 (mg/dL) Final Glomerular filtration rate/1.73 sq M.predicted [Volume Rate/Area] in Serum, Plasma or Blood by Creatinine-based formula (CKD-EPI) 05/26/2023 13:43:43 55 Below low normal >=60 (mL/min) Final eGFR is calculated based on the CKD-EPI 2020 equation SODIUM 05/26/2023 13:43:43 144 135-146 (m mol/L) Final Potassium 05/26/2023 13:43:43 4.3 3.5-5.1 (m mol/L) Final Cl 05/26/2023 13:43:43 107 98-107 (mm ol/L) Final CO2 05/26/2023 13:43:43 25 22-32 (mmo l/L) Final Anion gap 05/26/2023 13:43:43 12 7-15 (mmol /L) Final Glucose 05/26/2023 13:43:43 84 70-120 (mg /dL) Final Calcium 05/26/2023 13:43:43 9.0 8.4-10.2 ( mg/dL) Final Performing Location [facility] [place] [address]
--- OUTSIDE RECORDS SUMMARY | 2023-07-30 05:20 | External Medical Summary | Summary of Care ---
Author Name Unknown Organization [facility] Address [address] [place] [address] Phone [phone] Care Team Providers Care Transformation Manager Name Role Phone Bradford Eamon Clark BUSTAMANTE Primary Care Provider [phone] Reason for Visit * Reason Comments Follow Up Sleep Apnea Encounter Details Date Type Department Care Team Description 05/07/2023 [facility] [address] [place] [phone] Herlinda Renee CRNP [address] [facility] [address] MYRON (obstructive sleep apnea)*; Periodic breathing; Chronic [...] (FLONASE) 50 MCG/ACT nasal spray Administer 1 [place] into nostril in the morning. 0 Active Ipratropium [place] 0.06 % Nasal Solution (Atrovent)Indicati ons:Periodic breathing [...] NAZANIN Mckeon - 05/07/2023 3:44 PM EDT [facility] Ricardo Gray is a 82 year old male seen today for routine follow-up of MYRON treated on auto CPAP.Medical history significant for CHF, chronic AFib, CKD, hyperparathyroidism and obesity Sleep Testing/History: Initially presented in 2011 with poor sleep quality, non refreshing sleep, snoring and daytime sleepiness. [place] 12. - PSG 05/07/2012: AHI 5.9 (2 [...] 12.9, p90% 15 Periodic breathing 47% Equipment: [facility] Provider: [facility] Device: [employer] (replaced by [employer] recall) Settings: 12-20 cmH20 Interface Type: FFM - F20 AirTouch Humidifier: used with benefit Cleaning: By hand routinely [place] Sleepiness Scale Question 05/07/2023 3:45 PM EDT [...] (HCC) I50.22 Sacroiliitis (HCC) M46.1 HPTH (hyperparathyroidism) ([facility]) E21.3 Current Medications: Outpatient Medications Marked as [...] FOR ROSACEA as directed by prescriber Ipratropium [place] 0.06 % Nasal Solution (Atrovent) instill 2 sprays into each nostril three timesa day if needed for allergies fluticasone (FLONASE) 50 MCG/ACT nasal spray Administer 1 [place] into nostril in the morning. Clindamycin Phosphate [...] on aPAP 12-20 is 10.7 with 4.3 NAAI and 47% periodic breathing. Recommended optimizing management [...] impaired. NAZANIN Webb Pulmonary & Sleep Medicine [facility] I spent a total of 40-54 minutes [...] Follow Up Sleep Apnea Cpap DME: [facility] [place] Sleepiness Scale Question 05/07/2023 3:45 PM EDT [...] Family Medicine Eamon Felder, DO [address] [facility] [place] [address] 05/27/2023 Telemedicine Psychiatry Pippa Ryan MD [address] [place] [address] 08/11/2023 Office Visit Cardiology Russ Morley PA-C [address] [place] [address] 09/18/2023 Office Visit Nephrology Gi Castillo PA-C [address] [facility], [place] [id number] 12/05/2023 Office Visit Sleep Disorders Herlinda Renee CRNP [address] [place] [address] Scheduled Procedures Name Priority Associated Diagnoses Date/Ti [...] Additional history exists CKD HGB USE SMARTSET 80600 06/18/202306/18, 10/17/2021, 10/17/2021, Additional history exists CKD PHOS USE SMARTSET 27492 06/18/202306/08, 08/17/2021, 03/14/2020, Additional history exists GFR [...] and were consensually agreed upon. Care Teams Transformation Manager Relationship Specialty Start Date End Date Eamon Felder, DO [address] [place] [address] PCP - General Family Medicine 08/25/18 documented as of this encounter
--- OUTSIDE RECORDS SUMMARY | 2023-07-30 05:20 | External Medical Summary | Summary of Care ---
Author Name Unknown Organization [facility] Address [address] [place] [address] Phone [phone] Care Team Providers Care Refinery Operator Crude Unit Name Role Phone AlfredEamon mitchell Primary Care Provider [phone] Reason for Visit * Reason Comments case management Encounter Details Date Type Department Care Team Description 05/14/2023 Engraving Plate MakerOperations Officer Internal Medicine [facility] [address] [place], [place] [id number] Cecilia Ríos, RN [address] [place] [address] Medical home patient encounter* Allergies Active Allergy Reactions Severity Noted Date Comments Dust 04/15/2011 Upper resp sx Other Allergy (See Comments) 10/23/2012 Perfume that contains kiah root causes nasal congestion documented as of this encounter (statuses as of 05/14/2023) Medications Medication Sig Dispensed Refills Start Date [...] (FLONASE) 50 MCG/ACT nasal spray Administer 1 [place] into nostril in the morning. 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 [...] as of this encounter (statuses as of 05/14/2023) Active Problems Problem Noted Date Sacroiliitis 11/06/2022 [...] as of this encounter (statuses as of 05/14/2023) Resolved Problems Problem Noted Date Resolved Date [...] as of this encounter (statuses as of 05/14/2023) Immunizations Name Administration Dates Next Due COVID-19 [...] Progress Notes * Cecilia Ríos RN - 05/14/2023 2:11 PM EDT Follow-up Routine Attempted Phone Call Second Attempt Call Outcome Unable to Leave Message Plan To attempt another outreach documented in this encounter Plan of Treatment Upcoming Encounters Date Type Specialty Care Team Description 05/26/2023 Office Visit Family Medicine Eamon Felder DO [address] [facility] [place] [address] 05/27/2023 Telemedicine Psychiatry Pippa Ryan MD [address] [place] [address] 08/11/2023 Office Visit Cardiology Russ Morley PA-C [address] [place] [address] 09/18/2023 Office Visit Nephrology Gi Castillo PA-C [address] [place] [address] 12/05/2023 Office Visit Sleep Disorders Herlinda Renee CRNP [address] [place] [address] Scheduled Procedures Name Priority Associated Diagnoses Date/Ti [...] Additional history exists CKD HGB USE SMARTSET 35620 06/18/202306/18, 10/17/2021, 10/17/2021, Additional history exists CKD PHOS USE SMARTSET 22069 06/18/202306/08, 08/17/2021, 03/14/2020, Additional history exists GFR [...] and were consensually agreed upon. Care Teams Refinery Operator Crude Unit Relationship Specialty Start Date End Date Eamon Felder, [address] [place] [address] PCP - General Family Medicine 08/25/18 documented as of this encounter
--- OUTSIDE RECORDS SUMMARY | 2023-07-30 05:20 | External Medical Summary | Summary of Care ---
Author Name Unknown Organization [facility] Address [address] [place] [address] Phone [phone] Care Team Providers Care Divisional Merchandising Manager Name Role Phone Eamon Felder DO Primary Care Provider [phone] Reason for Referral * Evaluate & Treat - Unlimited Visits (Within 30 days (routine)) - Authorized Specialty Diagnoses / Procedures Referred By Cecile jaffe Referred To Contact Physical Therapy / Physical Medicine And Rehab Diagnoses Lumbar spondylosis with myelopathy Sacroiliitis (HCC) Eamon Felder DO [address] [place] [id number] Referral ID Status Reason Start Date Expiration Date Visits Requested Visits Authorized [id number] Authorized Specialty Services Required 05/26/[phone] Question Answer Referral Priority Within 30 days (routine) Reason for Visit * Reason Onset Date Comments Follow Up Medication Administration 05/26/2023 Flu an d/or Pneumo Inj Encounter Details Date Type Department Care Team Description 05/26/2023 Office Visit Family Practice State Kiel Stern [address] [place] [id number] Eamon Felder DO [address] [place] [address] Stage 3b chronic kidney disease*; Lumbar spondylosis with myelopathy; Sacroiliitis (HCC); Need for prophylactic vaccination and inoculation against influenza; Adjustment disorder with depressed mood; Major depressive disorder, recurrent episode, moderate (HCC); Chronic systolic congestive heart failure (HCC) Allergies [...] (FLONASE) 50 MCG/ACT nasal spray Administer 1 [place] into nostril in the morning. 0 Active Ipratropium [place] 0.06 % Nasal Solution (Atrovent)Indicatio ns:Periodic breathing [...] Oral Tablet Extended Release 24 Hour (toPROL XL)Indications:Senior Specialist jorge atrial fibrillation (HCC) 1/2 tablet daily. [...] Sign Reading Time Taken Comments Blood Pressure 130/76 05/26/2023 12:48 PM EDT Pulse 84 05/26/2023 12:48 PM EDT Temperature 36.9 C (98.4 F) 05/26/2023 12:48 PM E DT Respiratory Rate 18 05/26/2023 12:48 PM EDT Oxygen Saturation 96% 05/26/2023 12:48 PM EDT Inhaled Oxygen Concentration - - Weight 115.7 kg (255 lb) 05/26/2023 12:48 PM EDT Height - - Body Mass Index 35.57 05/07/2023 3:42 PM EDT documented in this encounter Progress Notes * Rabia Juarez LPN - 05/26/2023 1:27 PM EDT PRE - ADMINISTRATION DOCUMENTATION Are you experiencing any cold symptoms or fever? No Have you had Guillain-[place] Syndrome (an illness that causes paralysis) within the last 6 weeks? No Have you had the flu shot in the past? YES Have you ever had a reaction to the flu shot? No Rabia Juarez LPN, 05/26/2023 1:27 PM Immunization Administration Documentation Time Out Procedure Performed: Yes Patient Identified (Ask Name/Date of ): Yes Does the patient have a fever greater than 101 degrees today? No Patient allergic to latex? No VFC Stock: No Immunization(s) verified: Yes, Immunization Name: Flu, VIS Sheet(s) given: Yes Verified Side and Site: Yes Verified Shot(s) with Parent(s)/Patient: Yes * Eamon Clark Felder, DO - 05/26/2023 1:01 PM EDT Subjective: Ricardo Gray is a 82 year old male. Chief Complaint Patient presents with Follow Up HPI: Pt here in follow-up. Had to sell his [place] home to continue his legal steel. Looking into computers, may not been near an end of struggle. Significant other gaslighting him. Took his hearing aide federal aid coordinator and denied it. Thinking of gettingout of the house. They are not officially . He has been trying to get out of the relationship for awhile but his corporate associate attorney advises against it. Mood has been up and down. [place] h[place]over a few days ago but does not drink. HE is seeing his psychiatrist today. HE has chronic low back pain. Open to PT PMHx, meds, and allergies reviewed Patient Active [...] (HCC) I50.22 Sacroiliitis (HCC) M46.1 HPTH (hyperparathyroidism) (HCC) E21.3 Current Outpatient Medications Medication Sig Dispense Refill Clindamycin Phosphate 1 % SWAB Apply to face daily as needed 60 Each 1 fluticasone (FLONASE) 50 MCG/ACT nasal spray Administer 1 [place] into nostril in the morning. Ipratropium [place] 0.06 % Nasal Solution (Atrovent) instill 2 [...] mg by mouth daily. 30 Capsule 11 Venlafaxine HCl ER 150 MG Oral Capsule Extended Release 24 Hour (Effexor XR) Take 300 mg (2 pills) every day 180 Capsule 1 LORazepam 1 MG Oral Tablet (Ativan) Take 0.5 mg (1/2 pill) up to 4 times a day as needed for anxiety 60 Tablet 3 Vardenafil HCl (LEVITRA) 20 MG Tablet Take 1 Tab by mouth daily as needed for Erectile Dysfunction.1 hour prior to intercourse, no more than 1 dose per day. 10 Tab 5 No current facility-administered medications for this visit. Review of patient's allergies indicates: Allergen Reactions Dust Upper resp sx Other Allergy (See Comments) Perfume that contains kiah root causes nasal congestion OBJECTIVE: BP 130/76 | Pulse 84 | Temp 36.9 C (98.4 F) (Tympanic) | Resp 18 | Wt 115.7 kg (255 lb) | SpO2 96% | BMI 35.57 kg/m | BSA 2.41 m Estimated body mass index is 35.57 kg/m as calculated from the following: Height as of 05/07/23: 1.803 m (5' 11"). Weight as of this encounter: 115.7 kg (255 lb). BP Readings from Last 3 Encounters: 05/26/23 130/76 05/07/23 122/74 04/14/23 118/68 Wt Readings from Last 3 Encounters: 05/26/23 115.7 kg (255 lb) 05/07/23 108.9 kg (240 lb) 04/14/23 108.9 kg (240 lb) ROS: Negative except for above PHYSICAL EXAM: General: alert, healthy, and no distress Head: Normocephalic, No masses, lesions, tenderness or abnormalities Heart: regular rate & rhythm, no murmur, and no gallops Lungs: chest symmetric with normal AP diameter, no chest deformities noted, no chest wall tenderness, lungs clear to auscultation ASSESSMENT/Plan Stage 3b chronic kidney disease (Primary) - BASIC METABOLIC PANEL; Future; Expected date: 11/24/2023 - HGB; Future; Expected date: 11/24/2023 Lumbar spondylosis with myelopathy - PHYSICAL THERAPY REFERRAL OP Sacroiliitis (HCC) - PHYSICAL THERAPY REFERRAL OP Need for prophylactic vaccination and inoculation against influenza - INFLUENZA VACC, QUAD, HIGH DOSE (FLUZONE HD) Adjustment disorder with depressed mood Major depressive disorder, recurrent episode, moderate (HCC) Chronic systolic congestive heart failure (HCC) I spent a total of 30 minutes on the date of service in preparation, delivery, and documentation ofthe care provided to this patient, excluding any time spent on the performance of any procedure or separately billable services. I think Ricardo's psychiatrist is right to compare him losing his business to bereavement of a familymember. However with the continued legal process he is not going through the steps of bereavement. This legal steel needs to end for his mental and financial health. The above was discussed and understanding was expressed. Eamon Felder DO documented in this encounter Nursing Notes * Rabia Juarez LPN - 05/26/2023 12:48 PM EDT Ricardo Gray presents for 6 month recheck. Medications & HM reviewed. Says his mental health is worsening- anxiety specifically. States he's taking 3- 4 lorazepam every day. documented in this encounter Plan of Treatment Upcoming Encounters Date Type Specialty Care Team Description 05/27/2023 Telemedicine Psychiatry Pippa Ryan MD [address] [place] [address] 08/11/2023 Office Visit Cardiology Russ Morley PA-C [address] [place] [address] 09/18/2023 Office Visit Nephrology Gi Castillo PA-C [address] [place] [address] 12/05/2023 Office Visit Sleep Disorders Herlinda Renee CRNP [address] [place] [address] 12/22/2023 Office Visit Family Medicine Eamon Felder DO [address] [place] [address] Pending Results Name Type Priority Associated Diagnoses Date /Time BASIC METABOLIC PANEL Lab Routine Stage 3b chronic kidney disease 05/26/2023 1:43 PM EDT Scheduled Orders Name Type Priority Associated Diagnoses Orde r Schedule BASIC METABOLIC PANEL Lab Routine Stage 3b chronic kidney disease Expected: 11/24/2023 (Approximate), Expires: 05/26/2024 Scheduled Procedures Name Priority Associated Diagnoses Date/Ti me ESOPHAGOGASTRODUODENOSCOPY ( EGD), FLEXIBLE, TRANSORAL, DIAGNOSTIC Recall Acid reflux Scheduled Referrals Name Type Priority Associated Diagnoses Orde r Schedule PHYSICAL THERAPY REFERRAL OP Referral Within 30 days (routine) Lumbar spondylosis with myelopathy Sacroiliitis (HCC) Ordered: 05/26/2023 Health Maintenance Due Date Last Done Comments Zoster Vaccines (2 of 3) 09/07/2012 07/13/2012 COVID-19 Vaccine (4 - Pfizer series) 09/22/2021 07/28/2021, 11/16/2020, 10/17/2020 Depression Screening 10/30/2021 10/30/2020 Albumin/Creatinine Ratio 06/18/2023 022, 10/19/2021, 01/04/2021, Additional history exists CKD PHOS USE SMARTSET 95674 06/18/202306/08, 08/17/2021, 03/14/2020, Additional history exists GFR 10/15/2023 04/14/2023, 0309/2022, 06/18/2022, Additional history exists CKD HGB USE SMARTSET 33302 05/26/202405/26, 06/18/2022, 10/17/2021, Additional history exists DTaP,Tdap,and Td Vaccines (2 [...] Not on filedocumented as of this encounter Results * HGB (05/26/2023 1:43 PM EDT) HGB 15.1 14.0 - 16.8 g/dL 05/26/2023 1:56 PM EDT [facility] 56-02 Blood Venous blood specimen / Unknown Venipuncture / Unknown 05/26/2023 1:43 PM EDT 05/26/2023 1:43 PM EDT Eamon Felder DO LAB BLOOD ORDERABLE S [facility] 56- [address] [facility] [place] [address] documented in this encounter Visit Diagnoses Diagnosis Stage 3b chronic kidney disease- Primary Lumbar spondylosis with myelopathy Spondylosis with myelopathy, lumbar region Sacroiliitis (HCC) Sacroiliitis, not elsewhere classified Need for prophylactic vaccination and inoculation against influenza Adjustment disorder with depressed mood Major depressive disorder, recurrent episode, moderate (HCC) Major depressive disorder, recurrent episode, moderate Chronic systolic congestive heart failure (HCC) Chronic systolic heart failure documented in this encounter Advance Directives Latest Code Status on File Code Status Date Activated Date Inactivated Comments Full Code 07/07/2020 12:46 AM 07/12/2020 5:11 PM Thi s order reflects the patients wishes and were consensually agreed upon. Care Teams Divisional Merchandising Manager Relationship Specialty Start Date End Date Eamon Felder DO [address] [place] [address] PCP - General Family Medicine 08/25/18 documented as of this encounter
--- OUTSIDE RECORDS SUMMARY | 2023-07-30 05:21 | External Medical Summary | Summary of Care ---
Author Name Unknown Organization [facility] Address [address] [place] [address] Phone [phone] Care Team Providers Care Neck Skewer Name Role Phone Bradford Eamon Clark BUSTAMANTE Primary Care Provider [phone] Reason for Referral * Evaluate & Treat - Unlimited Visits (Within 10 days (routine)) - Authorized Specialty Diagnoses / Procedures Referred By Cecile jaffe Referred To Contact [employer] Diagnoses Orthostatic hypotension Dizziness Chronic atrial fibrillation (HCC) Alzheimer's dementia without behavioral disturbance (HCC) Chronic systolic congestive heart failure (HCC) Ce Pfeiffer PA-C [address] [place] [address] Referral ID Status Reason Start Date Expiration Date Visits Requested Visits Authorized [id number] Authorized Specialty Services Required 04/14/2023 999 999 Question Answer Referral Priority Within 10 days (routine) Role Dish Up Person Dish Up Person Referral Reason Frail Elderly, Heart Failure Comments Is patient being transitioned from [facility] to Complex Case Management? No * Evaluate & Treat - Unlimited Visits (Within 10 days (routine)) - Authorized Specialty Diagnoses / Procedures Referred By Cecile jaffe Referred To Contact HOME CARE / Home Care Diagnoses Hospital discharge follow-up Orthostatic hypotension Dizziness Chronic atrial fibrillation (HCC) Alzheimer's dementia without behavioral disturbance (HCC) Chronic systolic congestive heart failure (HCC) Ce Pfeiffer PA-C [address] [place] [address] Referral ID Status Reason Start Date Expiration Date Visits Requested Visits Authorized [id number] Authorized Specialty Services Required 04/14/2023 999 999 Question Answer Referral Priority Within 10 days (routine) Comments Documentation of Pulj-th-Tfxs Encounter Addendum Patient Name: Ricardo Gray I certify that this patient is under my care and that I, or a nurse practitioner or physician's medical record assistant working with me, had a [id number] encounter that meets the physician ujdk-ck-[id number] encounter requirements with this patient on: 04/14/23 The encounter with the patient was in whole, or in part, for the following medical condition, which is the primary reason for home health care (List medical condition): Gait dysfunction I certify that, based on my findings, the following services are medically necessary home health services: Physical Therapy To provide the following care/treatments: (All hospitalists not following the patient after discharge should complete this section): alzheimers, dizziness, orthostasis, multiple falls Primary Care Physician to follow home care plan of care after discharge: Bradford My clinical findings support the need for the above services because: alzheimer's, recurrent falls Further, I certify that my clinical findings support that this patient is homebound (i.e. Absences from home require considerable and taxing effort and are for medical reasons or restorationism services or infrequently or of short duration when for other reason) because: Alzheimers, recurrent falls Physician Signature: Date of Signature: Physician Printed Name: Ce Pfeiffer PA-C * Medication Prior Authorization - Pending Review Specialty Diagnoses / Procedures Referred By Cecile jafef Referred To Contact Diagnoses Rosacea Acne vulgaris Ce Pfeiffer PA-C [address] [place] [address] Referral ID Status Reason Start Date Expiration Date V isits Requested Visits Authorized [id number] Pending Review 999 999 Reason for Visit * Reason Comments Hospital Follow-Up Encounter Details Date Type Department Care Team Description 04/14/2023 Office Visit Family Practice State Kiel Stern [address] [place] [address] Ce Pfeiffer PA-C [address] [place] [address] Hospital discharge follow-up*; Orthostatic hypotension; Dizziness; Chronic atrial fibrillation (HCC); Rosacea; Acne vulgaris; Chronic systolic congestive heart failure (HCC); Alzheimer's dementia without behavioral disturbance (HCC) Allergies Active Allergy Reactions Severity Noted Date Comments Dust 04/15/2011 Upper resp sx Other Allergy (See Comments) 10/23/2012 Perfume that contains kiah root causes nasal congestion documented as of this encounter (statuses as of 04/15/2023) Medications Medication Sig Dispensed Refills Start Date End Date Status Vardenafil HCl (LEVITRA) 20 MG TabletIndication s:Impotence of organic origin Take 1 Tab by mouth daily as needed for Erectile Dysfunction. 1 hour prior to intercourse, no more than 1 dose per day. 10 Tab 5 8 Active Clindamycin Phosphate 1 % SWABIndications: Rosacea Apply to face daily as needed 60 Each 1 8 Active fluticasone (FLONASE) 50 MCG/ACT nasal spray Administer 1 [place] into nostril in the morning. 0 Active Ipratropium Star 0.06 % Nasal Solution (Atrovent)Indica tions:Periodic breathing instill 2 sprays into each nostril three times a day if needed for allergies 0 1 Active [place] 2 % External Pad (Erythromycin)In dications:Rosace a apply topically TO FACE DAILY FOR ROSACEA as directed by prescriber 60 Each 1 1 Active CPAP every night at bedtime. 0 Active Albuterol Sulfate HFA 108 (90 Base) MCG/ACT Inhalation Aerosol SolutionIndicati ons:Bronchitis, complicated INHALE 2 PUFFS EVERY 4 HOURS NEEDED FOR COUGH OR WHEEZING 18 g 1 3 Active B-12 1000 MCG Oral Tablet Take 1,000 mcg by mouth daily. 0 Active Venlafaxine HCl ER 150 MG Oral Capsule Extended Release 24 Hour (Effexor XR) Take 300 mg (2 pills) every day 180 Capsule 1 3 Active LORazepam 0.5 MG Oral Tablet (Ativan) Take 0.5 mg (1 pill) up to 4 times a day as needed for anxiety 120 Tablet 2 3 Active Allopurinol 100 MG Oral Tablet (Zyloprim)Indica tions:Acute sinusitis TAKE BY MOUTH 2 TABLETS IN THE MORNING. 180 Tablet 3 3 Active Additional Information Patient not taking.Reported on 04/07/2023 Tamsulosin HCl 0.4 MG Oral Capsule (Flomax)Indicati ons:BPH with obstruction/lowe r urinary tract symptoms TAKE 1 CAPSULE AT BEDTIME 90 Capsule 3 3 Active Pantoprazole Sodium 40 MG Oral Tablet Delayed Release (Protonix) Take 1 Tablet by mouth in the morning. 180 Tablet 3 3 Active Torsemide 10 MG Oral Tablet (Demadex)Indicat ions:Chronic systolic congestive heart failure (HCC) Take one tablet by mouth only as needed. 60 Tablet 3 3 Active Eliquis 2.5 MG Oral Tablet (Apixaban)Indica tions:Chronic atrial fibrillation (HCC) TAKE 1 TABLET BY MOUTH TWICE A DAY 60 Tablet 3 3 Active Hyoscyamine Sulfate 0.125 MG Sublingual Tablet Sublingual (Levsin)Indicati ons:Irritable bowel syndrome One pill by mouth or under the tongue every 4 hours as needed for abdominal pain 40 Tablet 4 3 Active Doxycycline Hyclate 50 MG Oral Tablet (Vibramycin)Jackie cations:Rosacea, Acne vulgaris Take 50 mg by mouth in the morning. 90 Tablet 2 3 Active Metoprolol Succinate ER 25 MG Oral Tablet Extended Release 24 Hour (toPROL XL)Indications:C hronic atrial fibrillation (HCC) 1/2 tablet daily. 90 Tablet 3 3 Active Memantine HCl 10 MG Oral Tablet (Namenda) Take 10 mg (1 pill) twice a day 180 Tablet 1 3 04/14/20 23 Discontinued Metoprolol Succinate ER 25 MG Oral Tablet Extended Release 24 Hour (toPROL XL)Indications:C hronic atrial fibrillation (HCC) TAKE 1 TABLET EVERY MORNING 90 Tablet 3 3 04/14/20 23 Discontinued Doxycycline Hyclate 50 MG Oral Tablet Take 50 mg by mouth in the morning. 0 04/14/20 23 Discontinued(Ref ill) documented as of this encounter (statuses as of 04/15/2023) Active Problems Problem Noted Date Sacroiliitis 11/06/2022 Alzheimer's dementia without behavioral disturbance 11/06/2022 HPTH (hyperparathyroidism) 11/06/2022 Dementia without behavioral disturbance 10/17/2021 Chronic systolic congestive heart failur e 10/17/2021 [...] as of this encounter (statuses as of 04/15/2023) Resolved Problems Problem Noted Date Resolved Date [...] as of this encounter (statuses as of 04/15/2023) Immunizations Name Administration Dates Next Due COVID-19 mRNA, LNP-s, No Pre serve, 2-Dose Series ([employer]) 07/28/2021,11/16/2020,10/17/2020 Pneumococcal Conjugate Vacc, 13 Valent (Prevnar) 10/26/2015 Pneumococcal Polysaccharide PPV23 (Pneumovax) 06/13/2008 Seasonal Influenza, Quadriva lent Hd (Fluzone Hd) 06/21/2022,07/26/2021 Seasonal Influenza, Quadriva lent, No Preserve, 6 Mons & Above, IM 05/22/2018,06/25/2017 Seasonal Influenza, Quadriva lent, No Preserve, Adjuvanted, 65+ Yrs, IM 05/31/2020 Seasonal Influenza, Quadriva lent, No Preserve, IM [...] Sign Reading Time Taken Comments Blood Pressure 118/68 04/14/2023 3:13 PM EDT Pulse 92 04/14/2023 3:13 PM EDT Temperature 36.8 C (98.3 F) 04/14/2023 3:13 PM ED T Respiratory Rate 16 04/14/2023 3:13 PM EDT Oxygen Saturation 99% 04/14/2023 3:13 PM EDT Inhaled Oxygen Concentration - - Weight 108.9 kg (240 lb) 04/14/2023 3:13 PM EDT Height 180.3 cm (5' 11") 04/14/2023 3:13 PM EDT Body Mass Index 33.47 04/14/2023 3:13 PM EDT documented in this encounter Progress Notes * Ce Pfeiffer PA-C - 04/15/2023 9:49 AM EDT Subjective Ricardo Gray is a 82 year old male that presents for Hospital Follow-Up 82 yo male presents for hospital discharge follow-up. He was d/c from [facility] 04/08. He was admitted fordizziness, recurrent falls and orthostatic hypotension. While in the hospital, his symptoms were found to be mostly due to medication. His torsemide was discontinued, and his metoprolol was cut in half (12.5mg daily). His Namenda was also stopped. Since these changes were made, he reports he is feeling much better. Minimal dizziness, if any, and his BP has been stable. He hasn't had any issues with palpitations. Swelling in his ankles is minimal- has been well controlled with compression stockings, but he didn't wear them today. He denies cough, SOB, weight gain. He wants to make sure his bed control specialist is up to date with his medication changes. He also needs a CMP per discharge papers to check electrolyte status. Objective BP 118/68 | Pulse 92 | Temp 36.8 C (98.3 F) (Tympanic) | Resp 16 | Ht 1.803 m (5' 11") | Wt 108.9 kg (240 lb) | SpO2 99% | BMI 33.47 kg/m | BSA 2.34 m Body mass index is 33.47 kg/m. BP Readings from Last 3 Encounters: 04/14/23 118/68 04/07/23 142/88 03/06/23 132/96 Wt Readings from Last 3 Encounters: 04/14/23 108.9 kg (240 lb) 04/07/23 109.8 kg (242 lb) 02/25/23 111.1 kg (245 lb) Physical Exam Vitals and nursing note reviewed. Constitutional: General: He is not in acute distress. Appearance: Normal appearance. HENT: Head: Normocephalic and atraumatic. Eyes: General: No scleral icterus. Extraocular Movements: Extraocular movements intact. Conjunctiva/sclera: Conjunctivae normal. Pupils: Pupils are equal, round, and reactive to light. Cardiovascular: Rate and Rhythm: Normal rate. Rhythm irregular. Pulmonary: Effort: Pulmonary effort is normal. Breath sounds: Normal breath sounds. No stridor. No wheezing, rhonchi or rales. Musculoskeletal: Right lower leg: Edema (trace at the ankles) present. Left lower leg: Edema (trace at the ankles) present. Skin: General: Skin is warm and dry. Findings: No rash. Neurological: General: No focal deficit present. Mental Status: He is alert. Mental status is at baseline. Psychiatric: Mood and Affect: Mood normal. Behavior: Behavior normal. Assessment and plan 1. Hospital discharge follow-up - HOME HEALTH REFERRAL OP 2. Orthostatic hypotension -med changes updated in his chart -will reach out to cardiology to make sure they are aware of the changes and see if they have any other recommendations - COMPREHENSIVE METABOLIC PANEL; Future - HOME HEALTH REFERRAL OP - POPULATION HEALTH REFERRAL OP 3. Dizziness -will do PT referral to help with recurrent falls, dizziness -home health initially post-discharge, then can graduate to facility PT if able to and is safe enough - COMPREHENSIVE METABOLIC PANEL; Future - HOME HEALTH REFERRAL OP - POPULATION HEALTH REFERRAL OP 4. Chronic atrial fibrillation (HCC) -rate controlled today with metoprolol 12.5mg - Metoprolol Succinate ER 25 MG Oral Tablet Extended Release 24 Hour (toPROL XL); 1/2 tablet daily.Dispense: 90 Tablet; Refill: 3 - COMPREHENSIVE METABOLIC PANEL; Future - HOME HEALTH REFERRAL OP - POPULATION HEALTH REFERRAL OP 5. Rosacea - Doxycycline Hyclate 50 MG Oral Tablet (Vibramycin); Take 50 mg by mouth in the morning. Dispense:90 Tablet; Refill: 2 6. Acne vulgaris - Doxycycline Hyclate 50 MG Oral Tablet (Vibramycin); Take 50 mg by mouth in the morning. Dispense:90 Tablet; Refill: 2 7. Chronic systolic congestive heart failure (HCC) -no evidence of fluid overload today -will also do case management referral, possible [facility] scale if he isn't going to be able to toleratethe torsemide? - HOME HEALTH REFERRAL OP - BNP, NT-PRO; Future - POPULATION HEALTH REFERRAL OP 8. Alzheimer's dementia without behavioral disturbance (HCC) - HOME HEALTH REFERRAL OP - POPULATION HEALTH REFERRAL OP Follow up The above was discussed and understanding was expressed. Ce Pfeiffer PA-C documented in this encounter Nursing Notes * Yolanda Gilbert LPN - 04/14/2023 3:12 PM EDT Patient presents today for a hospital follow up. He denies any concerns. documented in this encounter Plan of Treatment Upcoming Encounters Date Type Specialty Care Team Description 05/01/2023 Telemedicine Pain Medicine Day, YULI Crews [address] [facility] [place] [address] 05/05/2023 Telemedicine Psychiatry Pippa Ryan MD [address] [place] [address] 05/07/2023 Office Visit Neurology Jemima Junior PA-C [address] [place] [address] 05/07/2023 Office Visit Sleep Disorders Herlinda Renee CRNP [address] [place] [address] 05/26/2023 Office Visit Family Medicine Eamon Felder DO [address] [facility] [place] [address] 08/11/2023 Office Visit Cardiology Russ Morley PA-C [address] [place] [address] 09/18/2023 Office Visit Nephrology Gi Castillo PA-C [address] [facility] [place] [address] Scheduled Procedures Name Priority Associated Diagnoses Date/Ti me ESOPHAGOGASTRODUODENOSCOPY ( EGD), FLEXIBLE, TRANSORAL, DIAGNOSTIC Recall Acid reflux Scheduled Referrals Name Type Priority Associated Diagnoses Orde r Schedule HOME HEALTH REFERRAL OP Referral Within 10 days (routine) Hospital discharge follow-up Orthostatic hypotension Dizziness Chronic atrial fibrillation (HCC) Alzheimer's dementia without behavioral disturbance (HCC) Chronic systolic congestive heart failure (HCC) Ordered: 04/14/2023 POPULATION HEALTH REFERRAL OP Referral Within 10 days (routine) Orthostatic hypotension Dizziness Chronic atrial fibrillation (HCC) Alzheimer's dementia without behavioral disturbance (HCC) Chronic systolic congestive heart failure (HCC) Ordered: 04/14/2023 Health Maintenance Due Date Last Done Comments Zoster Vaccines (2 of 3) 09/07/2012 07/13/2012 COVID-19 Vaccine (4 - Pfizer series) 09/22/2021 07/28/2021, 11/16/2020, 10/17/2020 Depression Screening, Annual for Pts 12 and Over 10/30/2021 10/30/2020 Influenza Vaccine (FLU shot) (#1) 2023 06/21/2022, 07/26/2021, 05/31/2020, Additional history exists Albumin/Creatinine Ratio 06/18/2023 022, 10/19/2021, 01/04/2021, Additional history exists CKD HGB USE SMARTSET 86406 06/18/202306/18, 10/17/2021, 10/17/2021, Additional history exists CKD PHOS USE SMARTSET 98172 06/18/202306/08, 08/17/2021, 03/14/2020, Additional history exists GFR [...] filedocumented as of this encounter Results * (ABNORMAL) BNP, NT-PRO (04/14/2023 4:05 PM EDT) BNP, NT-Pro 783(H) <300 pg/mL 04/15/2023 5:33 AM EDT [facility] Blood Venous blood specimen / Unknown Venipuncture / Unknown 04/14/2023 4:05 PM EDT 04/14/2023 4:05 PM EDT Narrative [facility] - 04/15/2023 5:33 AM EDT Exclude Heart Failure: <300 pg/mL Diagnose Heart Failure: Age <50 yr: >450 pg/mL 50-75 yr: >900 pg/mL >75 yr: >1800 pg/mL GFR is 30-59 mL/min: >1200 pg/mL or Age-adjusted values GFR <30 mL/min: do not use, not reliable Prognostic threshold: 1000 pg/mL Ce Pfeiffer PA-C LAB BLOOD ORD ERABLES [facility] [address] [place] [address] * (ABNORMAL) COMPREHENSIVE METABOLIC PANEL (04/14/2023 4:05 PM EDT) BUN 22(H) 6 - 20 mg/dL 04/14/2023 5:03 PM EDT [facility] 56 Creatinine 1.5(H) 0.6 - 1.2 mg/dL 04/14/2023 5:03 PM EDT [address] Estimated Glomerular Filtration Rate 49(L) >=60 mL/min 04/14/2023 5:03 PM EDT [facility] 56 Comment:eGFR is calculated b ased on the CKD-EPI 2020 equation Sodium 143 135 - 146 mmol/L 04/14/2023 5:03 PM EDT [facility] 56 Potassium 3.9 3.5 - 5.1 mmol/L 04/14/2023 5:03 PM EDT [facility] 56- Chloride 105 98 - 107 mmol/L 04/14/2023 5:03 PM EDT [facility] 56- CO2 27 22 - 32 mmol/L 04/14/2023 5:03 PM EDT [facility] 56 Anion Gap 11 7 - 15 mmol/L 04/14/2023 5:03 PM EDT [facility] 56 Glucose 88 70 - 120 mg/dL 04/14/2023 5:03 PM EDT [facility] 56- Albumin 3.9 3.8 - 5.0 g/dL 04/14/2023 5:03 PM EDT [facility] 56- AST 22 10 - 50 U/L 04/14/2023 5:03 PM EDT [facility] 56- Alkaline Phosphatase 123 35 - 130 U/L 04/14/2023 5:03 PM EDT [facility] 56 Bilirubin, Total 0.6 <=1.2 mg/dL 04/14/2023 5:03 PM EDT [facility] 5602 Calcium 9.1 8.4 - 10.2 mg/dL 04/14/2023 5:03 PM EDT [facility] 56- Protein 6.2 6.0 - 8.3 g/dL 04/14/2023 5:03 PM EDT [facility] 56- ALT 24 10 - 50 U/L 04/14/2023 5:03 PM EDT [facility] 56- Blood Venous blood specimen / Unknown Venipuncture / Unknown 04/14/2023 4:05 PM EDT 04/14/2023 4:05 PM EDT Ce Pfeiffer PA-C LAB BLOOD ORD ERABLES [facility] 56 [address] [place] [address] documented in this encounter Visit Diagnoses Diagnosis Hospital discharge follow-up- Primary Other follow-up examination Orthostatic hypotension Dizziness Dizziness and giddiness Chronic atrial fibrillation (HCC) Atrial fibrillation Rosacea Acne vulgaris Other acne Chronic systolic congestive heart failure (HCC) Chronic systolic heart failure Alzheimer's dementia without behavioral disturbance (HCC) Alzheimer's disease documented in this encounter Advance Directives Latest Code Status on File Code Status Date Activated Date Inactivated Comments Full Code 07/07/2020 12:46 AM 07/12/2020 5:11 PM Thi s order reflects the patients wishes and were consensually agreed upon. Care Teams Neck Skewer Relationship Specialty Start Date End Date Eamon Felder, DO [address] [facility] [place] [address] PCP - General Family Medicine 08/25/18 documented as of this encounter
--- OUTSIDE RECORDS SUMMARY | 2023-07-30 05:21 | External Medical Summary | Summary of Care ---
Author Name Unknown Organization [facility] Address [address] [place] [address] Phone [phone] Care Team Providers Care Punching Machine Operator Name Role Phone Bradford Eamon Clark BUSTAMANTE Primary Care Provider [phone] Reason for Visit * Reason Onset Date Comments Medication Problem 04/15/2023 Doxycycline H yclate 50 MG Oral Tablet (Vibramycin) Encounter Details Date Type Department Care Team Description 04/15/2023 Telephone Family Practice [facility] [address] [place] [address] Ce Pfeiffer PA-C [address] [place] [address] Medication Problem (Doxycycline Hyclate 50... Allergies Active Allergy Reactions Severity Noted Date Comments Dust 04/15/2011 Upper resp sx Other Allergy (See Comments) 10/23/2012 Perfume that contains kiah root causes nasal congestion documented as of this encounter (statuses as of 04/22/2023) Medications Medication Sig Dispensed Refills Start Date [...] (FLONASE) 50 MCG/ACT nasal spray Administer 1 [place] into nostril in the morning. 0 Active Ipratropium [place] 0.06 % Nasal Solution (Atrovent)Indicat ions:Periodic breathing [...] every day 180 Capsule 1 3 Active Allopurinol 100 MG Oral Tablet (Zyloprim)Indicat ions:Acute sinusitis TAKE BY MOUTH 2 TABLETS IN THE MORNING. 180 Tablet 3 3 Active Additional Information Patient not taking.Reported on 04/07/2023 Tamsulosin HCl 0.4 MG Oral Capsule (Flomax)Indicatio [...] mouth daily. 30 Capsule 11 3 Active Doxycycline Hyclate 50 MG Oral Tablet (Vibramycin)Indic ations:Rosacea,Ac ne vulgaris Take 50 mg by mouth in the morning. 90 Tablet 2 3 04/21/20 23 Discontinued documented as of this encounter (statuses as of 04/22/2023) Active Problems Problem Noted Date Sacroiliitis 11/06/2022 [...] as of this encounter (statuses as of 04/22/2023) Resolved Problems Problem Noted Date Resolved Date [...] as of this encounter (statuses as of 04/22/2023) Immunizations Name Administration Dates Next Due COVID-19 mRNA, LNP-s, No Pre serve, 2-Dose Series ([employer]) 07/28/2021,11/16/2020,10/17/2020 Pneumococcal Conjugate Vacc, 13 Valent (Prevnar) [...] encounter Miscellaneous Notes * Telephone Encounter - AZAR Lui - 04/22/2023 5:00 PM EDT Spoke with patient, made him aware of insurance issue and that another covered script was sent to his pharmacy. Pt agreeable and verbalized understanding. * Telephone Encounter - AZAR Tanner - 04/22/2023 1:59 PM EDT Provider to address: [place] Reason for Call: Medication Problem (Doxycycline Hyclate 50 MG Oral Tablet (Vibramycin)) Contact: Telephone Call Contact Type: Medication Outcome: Left message for the patient to call the office. Upon return call please transfer to a dedicated telephone nurse. Total Time including non face to face (minutes): 5 * Telephone Encounter - Ce Pfeiffer PA-C - 04/21/2023 10:04 PM EDT Doxy mono sent in. * Telephone Encounter - Faith No LPN - 04/15/2023 4:31 PM EDT Provider to address: Spoke with [facility] - advised that Doxycycline Hyclate 50 MG Oral Tablet (Vibramycin) is not covered by patients insurance. Insurance will cover: Doxycycline Hyclate 20 mg tablets Doxycycline Harlan 50 mg tablets Or try to obtain a prior authorization for Doxycycline Hyclate 50 mg Please advise on what you would like to do Reason for Call: Medication Problem (Doxycycline Hyclate 50 MG Oral Tablet (Vibramycin)) Contact: In Clinic Contact Type: Medication Outcome: See above Total Time including non face to face (minutes): 10 documented in this encounter Plan of Treatment Upcoming Encounters Date Type Specialty Care Team Description 05/01/2023 Telemedicine Pain Medicine Day, YULI Crews [address] [facility] [place] [address] 05/05/2023 Telemedicine Psychiatry Pippa Ryan MD [address] [place] [address] 05/07/2023 Office Visit Neurology Jemima Junior PA-C [address] [place] [address] 05/07/2023 Office Visit Sleep Disorders Herlinda Renee CRNP [address] [place] [address] 05/26/2023 Office Visit Family Medicine Eamon Felder DO [address] [place] [address] 08/11/2023 Office Visit Cardiology Russ Morley PA-C [address] [place] [address] 09/18/2023 Office Visit Nephrology Gi Castillo PA-C [address] [place] [address] Scheduled Procedures Name Priority Associated Diagnoses Date/Ti [...] Additional history exists CKD HGB USE SMARTSET 41137 06/18/202306/18, 10/17/2021, 10/17/2021, Additional history exists CKD PHOS USE SMARTSET 55956 06/18/202306/08, 08/17/2021, 03/14/2020, Additional history exists GFR 10/15/2023 04/14/2023, 030 09/2022, 06/18/2022, Additional history exists DTaP,Tdap,and Td [...] and were consensually agreed upon. Care Teams Punching Machine Operator Relationship Specialty Start Date End Date Eamon Felder, DO [address] [place] [address] PCP - General Family Medicine 08/25/18 documented as of this encounter
--- OUTSIDE RECORDS SUMMARY | 2023-07-30 05:21 | External Medical Summary | Summary of Care ---
Author Name Unknown Organization [facility] Address [address] [place] [address] Phone [phone] Care Team Providers Care High [employer] Library Media Specialist Name Role Phone Bradford Eamon Clark BUSTAMANTE Primary Care Provider [phone] Reason for Visit * Reason Onset Date Comments Medication Problem 04/15/2023 Doxycycline H yclate 50 MG Oral Tablet (Vibramycin) Encounter Details Date Type Department Care Team Description 04/15/2023 Telephone Family Practice [facility] [address] [place] [address] Ce Pfeiffer PA-C [address] [place] [address] Medication Problem (Doxycycline Hyclate 50... Allergies Active Allergy Reactions Severity Noted Date Comments Dust 04/15/2011 Upper resp sx Other Allergy (See Comments) 10/23/2012 Perfume that contains kiah root causes nasal congestion documented as of this encounter (statuses as of 04/21/2023) Medications Medication Sig Dispensed Refills Start Date [...] (FLONASE) 50 MCG/ACT nasal spray Administer 1 [place] into nostril in the morning. 0 Active Ipratropium [place] 0.06 % Nasal Solution (Atrovent)Indicat ions:Periodic breathing [...] as of this encounter (statuses as of 04/21/2023) Active Problems Problem Noted Date Sacroiliitis 11/06/2022 [...] sode, moderate 09/10/2019 Chronic atrial fibrillation 11/19/2018 MRAIA C (generalized anxiety disorder) 05/22 Essential tremor [...] as of this encounter (statuses as of 04/21/2023) Resolved Problems Problem Noted Date Resolved Date [...] as of this encounter (statuses as of 04/21/2023) Immunizations Name Administration Dates Next Due COVID-19 mRNA, LNP-s, No Pre serve, 2-Dose Series ([employer]) 07/28/2021,11/16/2020,10/17/2020 Pneumococcal Conjugate Vacc, 13 Valent (Prevnar) [...] encounter Miscellaneous Notes * Telephone Encounter - Ce Pfeiffer PA-C - 04/21/2023 10:04 PM EDT Doxy mono sent in. * Telephone Encounter - Faith No LPN - 04/15/2023 4:31 PM EDT Provider to address: Spoke with [facility] - advised that Doxycycline Hyclate 50 MG Oral Tablet (Vibramycin) is not covered by patients insurance. Insurance will cover: Doxycycline Hyclate 20 mg tablets Doxycycline [place] 50 mg tablets Or try to obtain [...] Care Team Description 05/01/2023 Telemedicine Pain Medicine Eleonora Nunes PA-C [address] [facility] [place] [address] 05/05/2023 Telemedicine Psychiatry [facility]ippa Ryan MD [address] [facility] [address] 05/07/2023 Office Visit Neurology Jemima Junior PA-C [address] [place] [address] 05/07/2023 Office Visit Sleep Disorders Hrelinda Renee CRNP [address] [place] [address] 05/26/2023 Office Visit Family Medicine Eamon Felder DO [address] [place] [address] 08/11/2023 Office Visit Cardiology Russ Morley PA-C [address] [place] [address] 09/18/2023 Office Visit Nephrology Gi Castillo PA-C [address] [place] [address] Scheduled Procedures Name Priority Associated Diagnoses Date/Ti [...] Additional history exists CKD HGB USE SMARTSET 70997 06/18/202306/18, 10/17/2021, 10/17/2021, Additional history exists CKD PHOS USE SMARTSET 77319 06/18/202306/08, 08/17/2021, 03/14/2020, Additional history exists GFR [...] and were consensually agreed upon. Care Teams High [employer] Library Media Specialist Relationship Specialty Start Date End Date Eamon Felder, DO [address] [place] [address] PCP - General Family Medicine 08/25/18 documented as of this encounter
--- OUTSIDE RECORDS SUMMARY | 2023-07-30 05:21 | External Medical Summary | Summary of Care ---
Author Name Unknown Organization [facility] Address [address] [place] [address] Phone [phone] Care Team Providers Care Risk Control Officer Name Role Phone Bradford Eamon Clark BUSTAMANTE Primary Care Provider [phone] Reason for Visit * Reason Onset Date Comments FYI 04/15/2023 Recent admission and medication changes Encounter Details Date Type Department Care Team Description 04/15/2023 Telephone Family Practice [facility] [address] [place] [address] Ce Pfeiffer PA-C [address] [place] [address] FYI (Recent admission and medication changes) Allergies Active Allergy Reactions Severity Noted Date [...] (FLONASE) 50 MCG/ACT nasal spray Administer 1 [place] into nostril in the morning. 0 Active Ipratropium [place] 0.06 % Nasal Solution (Atrovent)Indicatio ns:Periodic breathing [...] (2 pills) every day 180 Capsule 1 12/23/2022 Active LORazepam 0.5 MG Oral Tablet (Ativan) Take 0.5 mg (1 pill) up to 4 times a day as needed for anxiety 120 Tablet 2 12/24/2022 Active Allopurinol 100 MG Oral Tablet (Zyloprim)Indicatio [...] abdominal pain 40 Tablet 4 03/31/2023 Active Doxycycline Hyclate 50 MG Oral Tablet (Vibramycin)Indicat ions:Rosacea,Acne vulgaris Take 50 mg by mouth in the morning. 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 90 Tablet 3 04/14/2023 Active documented as of this encounter (statuses [...] encounter Miscellaneous Notes * Telephone Encounter - Russ Morley PA-C - 04/15/2023 12:31 PM EDT No medication changes from my standpoint Russ Morley PA-C Department of Cardiology * Telephone Encounter - Ce Pfeiffer PA-C - 04/15/2023 8:33 AM EDT Pt was sen yesterday for hospital follow-up. Admitted to [facility] for recurrent falls and orthostatic hypotension. Torsemide was stopped completely, and metoprolol was cut in half (pt taking 12.5mg daily). Exam showed trace edema in the ankles, otherwise no significant signs of fluid overload. Labs as ordered- stable BNP and CMP. Are there any other medication changes you wish to make? I also made a referral to case management for his heart failure and Alzheimer's. documented in this encounter Plan of Treatment Upcoming Encounters Date Type Specialty Care Team Description 05/01/2023 Telemedicine Pain Medicine [facility] [place] [address] 05/05/2023 Telemedicine Psychiatry Pippa Ryan MD [address] [place] [address] 05/07/2023 Office Visit Neurology Jemima Junior PA-C [address] [place] [address] 05/07/2023 Office Visit Sleep Disorders Herlinda Renee CRNP [address] [place] [address] 05/26/2023 Office Visit Family Medicine Eamon Felder DO [address] [place] [address] 08/11/2023 Office Visit Cardiology Russ Morley PA-C [address] [place] [address] 09/18/2023 Office Visit Nephrology Gi Castillo PA-C [address] [place] [address] Scheduled Procedures Name Priority Associated Diagnoses Date/Ti [...] Additional history exists CKD HGB USE SMARTSET 16795 06/18/202306/18, 10/17/2021, 10/17/2021, Additional history exists CKD PHOS USE SMARTSET 30691 06/18/202306/08, 08/17/2021, 03/14/2020, Additional history exists GFR [...] and were consensually agreed upon. Care Teams Risk Control Officer Relationship Specialty Start Date End Date Eamon Felder, DO [address] [facility] [place] [place] [address] PCP - General Family Medicine 08/25/18 documented as of this encounter
--- OUTSIDE RECORDS SUMMARY | 2023-07-30 05:21 | External Medical Summary | Summary of Care ---
Author Name Unknown Organization [facility] Address [address] [place] [address] Phone [phone] Care Team Providers Care Manufacturing Engineering Technician Name Role Phone AlfredEamon mitchell Primary Care Provider [phone] Reason for Visit * Reason Onset Date Comments Medication Refill 04/21/2023 Encounter Details Date Type Department Care Team Description 04/21/2023 Refill [facility] [place] [address] [place], [place] [id number] Queenie Ryan MD [address] [place] [address] Allergies Active Allergy Reactions Severity [...] (FLONASE) 50 MCG/ACT nasal spray Administer 1 [place] into nostril in the morning. 0 Active Ipratropium [place] 0.06 % Nasal Solution (Atrovent)Indicat ions:Periodic breathing [...] every day 180 Capsule 1 12/23/2022 Active Allopurinol 100 MG Oral Tablet (Zyloprim)Indicat [...] tablet daily. 90 Tablet 3 04/14/2023 Active LORazepam 0.5 MG Oral Tablet (Ativan) Take 0.5 mg (1 pill) up to 4 times a day as needed for anxiety 120 Tablet 2 04/21/2023 Active LORazepam 0.5 MG Oral Tablet (Ativan) Take 0.5 mg (1 pill) up to 4 times a day as needed for anxiety 120 Tablet 2 12/24/2022 3 Discontinue d(Refill) documented as of this [...] mRNA, LNP-s, No Pre serve, 2-Dose Series ([employer]) 07/28/2021,11/16/2020,10/17/2020 Pneumococcal Conjugate Vacc, 13 Valent (Prevnar) [...] encounter Miscellaneous Notes * Telephone Encounter - Queenie Ryan MD - 04/21/2023 11:48 AM EDTSigned Prescriptions: Disp Refills LORazepam 0.5 MG Oral Tablet (Ativan) 120 Ta*2 Sig: Take 0.5 mg (1 pill) up to 4 times a day as needed for anxietyAuthorizing Provider: QUEENIE RYAN * Telephone Encounter - Teetee Giron LPN - 04/21/2023 11:09 AM EDTPending Prescriptions: Disp Refills LORazepam 0.5 MG Oral Tablet (Ativan) 120 Ta*2 Sig: Take 0.5 mg (1 pill) up to 4 times a day as needed for anxiety * Telephone Encounter - Teetee Giron LPN - 04/21/2023 11:07 AM EDT Refill request from patient (Kyle) for Ativan 0.5mg. Medication last filled on 12/24/22 with 2 refills. Patient last seen on 12/23/22 with return appointment scheduled for 05/05/23. Patient had 1 cancelled appointments and 0 NO SHOW appointments. documented in this encounter Plan of Treatment Upcoming Encounters Date Type Specialty Care Team Description 05/01/2023 Telemedicine Pain Medicine Day, YULI Crews [address] [facility] [place] [address] 05/05/2023 Telemedicine Psychiatry Queenie Ryan MD [address] [place] [address] 05/07/2023 Office Visit Neurology Jemima Junior PA-C [facility] [place] [address] 05/07/2023 Office Visit Sleep Disorders Herlinda Renee CRNP [address] [place] [address] 05/26/2023 Office Visit Family Medicine Eamon Felder DO [address] [place] [address] 08/11/2023 Office Visit Cardiology Russ Morley PA-C [address] [place] [address] 09/18/2023 Office Visit Nephrology Gi Castillo PA-C [address] [place] [address] [address] Scheduled Procedures Name Priority Associated Diagnoses Date/Ti [...] Additional history exists CKD HGB USE SMARTSET 27865 06/18/202306/18, 10/17/2021, 10/17/2021, Additional history exists CKD PHOS USE SMARTSET 17479 06/18/202306/08, 08/17/2021, 03/14/2020, Additional history exists GFR [...] and were consensually agreed upon. Care Teams Manufacturing Engineering Technician Relationship Specialty Start Date End Date Eamon Felder, DO [address] [place] [address] PCP - General Family Medicine 08/25/18 documented as of this encounter
--- OUTSIDE RECORDS SUMMARY | 2023-07-30 05:21 | External Medical Summary | Summary of Care ---
Author Name Unknown Organization [facility] Address [address] [place] [address] Phone [phone] Care Team Providers Care Commercial Pest Control Representative Name Role Phone BradfordEamon Clark BUSTAMANTE Primary Care Provider [phone] Encounter Details Date Type Department Care Team Description 05/05/2023 [facility] [address] [place] [address] Pippa Ryan MD [address] [place] [address] Major depressive disorder, recurrent episode, moderate (HCC)*; Generalized anxiety disorder; Neurocognitive disorder Allergies Active Allergy Reactions Severity Noted Date Comments Dust 04/15/2011 Upper resp sx Other Allergy (See Comments) 10/23/2012 Perfume that contains kiah root causes nasal congestion documented as of this encounter (statuses as of 05/06/2023) Medications Medication Sig Dispensed Refills Start Date [...] (FLONASE) 50 MCG/ACT nasal spray Administer 1 [place] into nostril in the morning. 0 Active Ipratropium [place] 0.06 % Nasal Solution (Atrovent)Indicat ions:Periodic breathing [...] 0 Active Allopurinol 100 MG Oral Tablet (Zyloprim)Indicat [...] daily. 30 Capsule 11 04/21/2023 Active LORazepam 0.5 MG Oral Tablet (Ativan) Take 0.5 mg (1 pill) up to 4 times a day as needed for anxiety 120 Tablet 2 05/06/2023 Active Venlafaxine HCl ER 150 MG Oral Capsule Extended Release 24 Hour (Effexor XR) Take 300 mg (2 pills) every day 180 Capsule 1 05/06/2023 Active Venlafaxine HCl ER 150 MG Oral Capsule Extended Release 24 Hour (Effexor XR) Take 300 mg (2 pills) every day 180 Capsule 1 12/23/2022 3 Discontinue d(Refill) LORazepam 0.5 MG Oral Tablet (Ativan) Take 0.5 mg (1 pill) up to 4 times a day as needed for anxiety 120 Tablet 2 04/21/2023 3 Discontinue d(Refill) documented as of this encounter (statuses as of 05/06/2023) Active Problems Problem Noted Date Sacroiliitis 11/06/2022 [...] as of this encounter (statuses as of 05/06/2023) Resolved Problems Problem Noted Date Resolved Date [...] as of this encounter (statuses as of 05/06/2023) Immunizations Name Administration Dates Next Due COVID-19 mRNA, LNP-s, No Pre serve, 2-Dose Series ([employer]) 07/28/2021,11/16/2020,10/17/2020 Pneumococcal Conjugate Vacc, 13 Valent (Prevnar) [...] * Patient Instructions* Pippa Ryan MD - 05/06/2023 1:26 AM EDT Call your friends and set up plans to meet for lunch. Try to do as many in a week as you can! Keep taking B12 1000 mcg every day. Keep taking melatonin 5 mg every night. Keep taking Ativan (lorazepam) 0.5 mg (1 pill) 4 times a day as needed for severe anxiety. --Or can take 1-2 pills in the day and 2 pills at bedtime if that works better Keep taking Effexor (venlafaxine) XR 300 mg (2 pills) every day. Follow-up with me on 05/27/23 at 2: 30pm --Call the clinic at [phone] or [facility] message me if you have any problems or questions, or you need to be seen sooner documented in this encounter Progress Notes * Pippa Ryan MD - 05/05/2023 11:02 PM EDT Patient location: HOME. I was not in a hospital or clinic location. After connecting through televideo, patient was verified with two unique identifiers. Patient (or authorized legal payroll representative) was then informed that this was a Telemedicine visit and being conducted confidentially over secure lines. Methods to assure confidentiality were taken. Patient acknowledged consent and understanding of privacy and security of the Telemedicine visit. The patient agreed to participate. 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 He was last seen in clinic on 12/23/2022. At that visit: --Venlafaxine was increased --Lorazepam was increased --Melatonin was continued --Memantine was continued --B12 was continued 3 weeks ago, he self-d/c'd memantine as thought was maybe worsening his IBS; thinks IBS may be better now, not noted any other changes. Overall, how doing since last visit: ok, the same Patient describes mood as: 'sad', 'depressed' and 'anxious'. Current medications helping: yes Medication changes helping: yes Medication problems or side effects: no Current symptoms, problems, and functioning: Low mood: Yes, worsened by major ongoing stressors Anxiety: Yes, worsened by major ongoing stressors Sleep: good Appetite: Working on eating healthy Level of participation in activities: Trying to get together more with old friends Suicidal ideation/passive wish to : Passive wish [...] yourself, etc. x Current stressors: stressful living situation, relationship stresses and physical health issues. REVIEW OF SYSTEMS: Review of systems including cardiac, pulmonary, constitutional, dermatologic, rheumatologic, GI, , MSK, psychiatric, and neurologic systems was negative except as in HPI HOME MEDICATIONS: B12 1000 mcg qday Venlafaxine XR 300 mg qday (last increased 12/23/2022) Melatonin 5 mg qhs Lorazepam 0.5 mg QID PRN (last increased 12/23/2022) Memantine 10 mg BID Apixaban 2.5 mg BID Metoprolol ER 25 mg qday Allopurinol 200 mg qday Doxycycline 50 mg qday Fluticasone 50 mg IN qday Pantoprazole 40 mg BID Tamsulosin 0.4 mg qhs Albuterol inh PRN Clindamycin 1 % swab topically PRN Erythomycin 2 % pad topically PRN Ipratropium 0.06 % IN PRN Vardenafil 20 mg qday PRN Torsemide 10 mg qday Probiotic TID Cpap Eliquis 2.5 mg Hyoscyamine sulfate 0.125 mg sublingual sublingual ALLERGIES: Review of patient's allergies indicates: Allergen Reactions Dust Upper resp sx Other Allergy (See Comments) Perfume that contains kiah root causes nasal congestion VITAL SIGNS: HR: BP: RR: SaO2: T: Weight: BMI: 04/14/23 92 04/07/23 81 03/06/23 68 02/25/23 78 04/14/23 118/68 04/07/23 142/88 03/06/23 132/96 02/25/23 118/69 04/14/23 16 04/07/23 16 03/06/23 16 02/25/23 18 04/14/23 36.8 C (98.3 F) 04/07/23 36.7 C (98.1 F) 03/06/23 36.5 C (97.7 F) 02/25/23 36.8 C (98.3 F) 04/14/23 108.9 kg (240 lb) 04/07/23 109.8 kg (242 lb) 02/25/23 111.1 kg (245 lb) 01/31/23 110.7 kg (244 lb) 04/14/23 33.47 kg/m 04/07/23 33.75 kg/m 02/25/23 33.92 kg/m 01/31/23 33.78 kg/m MENTAL STATUS EXAM: Overall: NAD Alertness: alert and awake Eye contact: good Cooperation / participation: good Fluency: language fluent Comprehension: intact Conversation: appropriate Psychomotor activity: normal, calm Thought process: logical and linear Associations: intact Thought Content: PWD: no SI: no HI: none Hallucinations: none Delusions: none Mood: 'sad', 'depressed' and 'anxious' Affect: full and mood-congruent Speech: rate normal, rhythm normal, volume normal, articulation normal Insight: fair to good Judgement: good Abnormal movements: none IMPRESSION: The patient is a 82 year [...] lightbox Jul 09 --Encourage psychotherapy; referred at [facility] and also gave [facility] teletherapy info 08/13/22 --Exercise: not doing currently; [...] of the maximum recommended dose. Note: The research asst recommends a 25% dose reduction in patients [...] HDL low at 35; LDL 87 --EKG 11/22/22 : QTc Prolonged at 467 ms --EKG 08/07/2021: QTc Prolonged at 465 ms Safety/crisis planning: --Reviewed safety/crisis planning --No access to guns. F/u: --Tues 05/27/23 at 2: 30pm --3 weeks Outpatient Adult Psychiatry Treatment Plan for visit 05/05/2023 Treatment plan was developed on 05/05/2023, treatment will continue to focus on goals below. Treatment update will occur when clinically indicated or by 11/05/2023. 1. Patient's goals captured in patient's words: "Reduce stress, cope better with stress" 2. Crisis Planning: What I can do if I ever experience a crisis (much worse symptoms, severe distress or thoughts of self-harm): do a distracting activity 3. People I can call in the event of a crisis: son, brother 2. Additional resources I can utilize if the previous steps are ineffective (e.g: ED, hotlines): Suicide and Crisis Lifeline - 988, Clinic number [phone], Ahandyhand access to crisis numbers 3. Patient/Family Received Copy of Treatment Plan: Patient has access to [employer] 4. Signature Obtained on Treatment Plan: Treatment plan developed with patient and/or family duringtelemedicine/telephonic visit. No treatment plan signature page was signed. Will obtain signatures once sessions resume in clinic. 5. Expected family or significant other involvement: offer support 6. Patient strengths and facilitating factors to care: has hobbies, inherent human drive for wellness/healing, access to health care Patient Identified Needs/Goals Interventions/Type of Service Duration of Treatment Frequency of Treatment Objective/Discharge Criteria Problem/Need1: Medication Management Medication Management 5 years 3 weeks Achieved maintenance treatment phase at optimal therapeutic dosage, on optimally safe regimen, for 24 months Please choose a method to track patient's improvement based on clinical assessment: Patient subjective measurement - rating (0-10; 0 is no symptoms, 10 is worst possible symptoms) --------- I spent 16 minutes doing psychotherapy with the patient; specifically: supportive psychotherapy, cognitive reframing and reinforcing of positive coping skills. * Pippa Ryan MD - 05/05/2023 7:39 PM EDT documented in this encounter Plan of Treatment Upcoming Encounters Date Type Specialty Care Team Description 05/07/2023 Office Visit Sleep Disorders [place], Herlinda Isma, SHEET METAL PATTERN CUTTER [address] [place] [address] 05/26/2023 Office Visit Family Medicine Eamon Felder DO [address] [place] [address] 05/27/2023 Telemedicine Psychiatry Pippa Ryan MD [address] [place] [address] 08/11/2023 Office Visit Cardiology Russ Morley PA-C [address] [place] [address] 09/18/2023 Office Visit Nephrology Gi Castillo PA-C [address] [place] [address] Scheduled Procedures Name Priority Associated Diagnoses Date/Ti [...] Additional history exists CKD HGB USE SMARTSET 39375 06/18/202306/18, 10/17/2021, 10/17/2021, Additional history exists CKD PHOS USE SMARTSET 89174 06/18/202306/08, 08/17/2021, 03/14/2020, Additional history exists GFR [...] and were consensually agreed upon. Care Teams Commercial Pest Control Representative Relationship Specialty Start Date End Date Eamon Felder, DO [address] [place] [address] PCP - General Family Medicine 08/25/18 documented as of this encounter
--- OUTSIDE RECORDS SUMMARY | 2023-07-30 05:21 | External Medical Summary | Summary of Care ---
Author Name Unknown Organization [facility] Address [address] [place] [address] Phone [phone] Care Team Providers Care Nail Maker Name Role Phone Bradford Eamon Clark BUSTAMANTE Primary Care Provider [phone] Reason for Visit * Reason Onset Date Comments Medication Problem 04/15/2023 Doxycycline H yclate 50 MG Oral Tablet (Vibramycin) Encounter Details Date Type Department Care Team Description 04/15/2023 Telephone Family Practice [facility] [address] [place] [address] Ce Pfeiffer PA-C [address] [place] [address] Medication Problem (Doxycycline Hyclate 50... Allergies Active [...] (FLONASE) 50 MCG/ACT nasal spray Administer 1 [place] into nostril in the morning. 0 Active Ipratropium [place] 0.06 % Nasal Solution (Atrovent)Indicat ions:Periodic breathing [...] mRNA, LNP-s, No Pre serve, 2-Dose Series ([employer]) 07/28/2021,11/16/2020,10/17/2020 Pneumococcal Conjugate Vacc, 13 Valent (Prevnar) [...] Miscellaneous Notes * Telephone Encounter - AZAR Tanner - [...] PM EDT Provider to address: Spoke with [facility] - advised that Doxycycline Hyclate 50 MG Oral Tablet (Vibramycin) is not covered by patients insurance. Insurance will cover: Doxycycline Hyclate 20 mg tablets Doxycycline [place] 50 mg tablets Or try to obtain [...] Telemedicine Pain Medicine Day, YULI Crews [address] [facility] [place] [address] 05/05/2023 Telemedicine Psychiatry Pippa Ryan MD [address] [place] [address] 05/07/2023 Office Visit Neurology Jemima Junior PA-C [address] [place] [address] 05/07/2023 Office Visit Sleep Disorders Herlinda Renee CRNP [address] [place] [address] 05/26/2023 Office Visit Family Medicine Eamon Felder DO [address] [place] [address] 08/11/2023 Office Visit Cardiology Russ Morley PA-C [address] [place] [address] 09/18/2023 Office Visit Nephrology Gi Castillo PA-C [address] [place] [address] Scheduled Procedures Name Priority Associated Diagnoses Date/Ti [...] Additional history exists CKD HGB USE SMARTSET 47344 06/18/202306/18, 10/17/2021, 10/17/2021, Additional history exists CKD PHOS USE SMARTSET 37736 06/18/202306/08, 08/17/2021, 03/14/2020, Additional history exists GFR [...] and were consensually agreed upon. Care Teams Nail Maker Relationship Specialty Start Date End Date Eamon Felder, DO [address] [place] [address] PCP - General Family Medicine 08/25/18 documented as of this encounter
--- OUTSIDE RECORDS SUMMARY | 2023-07-30 05:21 | External Medical Summary | Summary of Care ---
Author Name Unknown Organization [facility] Address [address] [place] [address] Phone [phone] Care Team Providers Care Publications Production Supervisor Name Role Phone Bradford Eamon Clark BUSTAMANTE Primary Care Provider [phone] Reason for Visit * Reason Onset Date Comments Medication Refill 04/21/2023 Encounter Details Date Type Department Care Team Description 04/21/2023 Refill Family Practice [facility] [address] [facility] [place] [address] Ce Pfeiffer PA-C [address] [facility] [place] [address] Rosacea; Acne vulgaris Allergies Active Allergy Reactions Severity Noted Date [...] (FLONASE) 50 MCG/ACT nasal spray Administer 1 [place] into nostril in the morning. 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 90 Tablet 3 04/14/2023 Active LORazepam 0.5 MG Oral Tablet (Ativan) Take 0.5 mg (1 pill) up to 4 times a day as needed for anxiety 120 Tablet 2 04/21/2023 Active Doxycycline Monohydrate 50 MG Oral Capsule Take 50 mg by mouth daily. 30 Capsule 11 04/21/2023 Active documented as of this encounter (statuses [...] encounter Miscellaneous Notes * Telephone Encounter - Benjamin Sargent ciro - 04/22/2023 7:55 AM EDTRefused Prescriptions: Disp Refills Doxycycline Hyclate 50 MG Oral Tablet (Vib*90 Tab*2 Sig: Take 50 mg by mouth in the morning.Refused By: Joel SARGENT for Refusal: Duplicate Request documented in this encounter Plan of Treatment Upcoming Encounters Date Type Specialty Care Team Description 05/01/2023 Telemedicine Pain Medicine DayEleonora PA-C [address] [place], [place] [id number] 05/05/2023 Telemedicine Psychiatry Pippa Ryan MD [address] [place] [address] 05/07/2023 Office Visit Neurology Jemima Junior PA-C [address] [place] [address] 05/07/2023 Office Visit Sleep Disorders Herlinda Renee CRNP [address] [place] [address] 05/26/2023 Office Visit Family Medicine Eamon Felder DO [address] [place] [address] 08/11/2023 Office Visit Cardiology Russ Morley PA-C [address] [place] [address] 09/18/2023 Office Visit Nephrology Gi Castillo PA-C [address] [place] [address] Scheduled Procedures Name Priority Associated Diagnoses Date/Ti [...] Additional history exists CKD HGB USE SMARTSET 04992 06/18/202306/18, 10/17/2021, 10/17/2021, Additional history exists CKD PHOS USE SMARTSET 40427 06/18/202306/08, 08/17/2021, 03/14/2020, Additional history exists GFR [...] as of this encounter Visit Diagnoses Diagnosis Rosacea Acne vulgaris Other acne documented in this encounter Advance Directives Latest Code Status on File Code Status Date Activated Date Inactivated Comments Full Code 07/07/2020 12:46 AM 07/12/2020 5:11 PM Thi s order reflects the patients wishes and were consensually agreed upon. Care Teams Publications Production Supervisor Relationship Specialty Start Date End Date Eamon Felder, DO [address] [place] [address] PCP - General Family Medicine 08/25/18 documented as of this encounter
--- OUTSIDE RECORDS SUMMARY | 2023-07-30 05:21 | External Medical Summary | Summary of Care ---
Author Name Unknown Organization [facility] Address [address] [place] [address] Phone [phone] Care Team Providers Care Private Branch Exchange Service Adviser Name Role Phone Eamon Felder DO Primary Care Provider [phone] Reason for Visit * Reason Comments Lumbar Pain W/radiation Encounter Details Date Type Department Care Team Description 05/01/2023 Telemedicine [facility] [address] [facility] [place] [address] Eleonora Nunes PA-C [address] [facility] [place] [address] Lumbar radicular pain* Allergies Active Allergy Reactions Severity Noted Date Comments Dust 04/15/2011 Upper resp sx Other Allergy (See Comments) 10/23/2012 Perfume that contains kiah root causes nasal congestion documented as of this encounter (statuses as of 05/01/2023) Medications Medication Sig Dispensed Refills Start Date [...] (FLONASE) 50 MCG/ACT nasal spray Administer 1 [place] into nostril in the morning. 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 90 Tablet 3 04/14/2023 Active LORazepam 0.5 MG Oral Tablet (Ativan) Take 0.5 mg (1 pill) up to 4 times a day as needed for anxiety 120 Tablet 2 04/21/2023 Active Doxycycline Monohydrate 50 MG Oral Capsule Take 50 mg by mouth daily. 30 Capsule 11 04/21/2023 Active documented as of this encounter (statuses as of 05/01/2023) Active Problems Problem Noted Date Sacroiliitis 11/06/2022 [...] as of this encounter (statuses as of 05/01/2023) Resolved Problems Problem Noted Date Resolved Date [...] as of this encounter (statuses as of 05/01/2023) Immunizations Name Administration Dates Next Due COVID-19 [...] as of this encounter Progress Notes * Eleonora Nunes PA-C - 05/01/2023 11:25 AM EDT Name: Ricardo Gray Date: 05/01/2023 After connecting to the patient via telephone, the patient was identified by name and date of . Patient was then informed that this was a telephone call only visit. The patient agreed to participate. Visit Disposition: Routine follow-up Total call duration five minutes. HPI: Ricardo Gray is a 82 year old male known to the Pain Management clinic presents for follow up after left interlaminar ORTIZ L5/S1 on 03/06/23. Admits more than 90% pain reduction. Very pleasedwith results. Mild low back pain in AM, described as stiffness. Denies EL radicular pain, paresthesia or weakness since injection. Denies bowel/bladder dysfunction. Using tylenol for pain relief. Plans to increase activity, looking to exercise more regularly now that the pain is better controlled. Xrays of procedure were reviewed. History of injections: L SI joint: 12/25/22. 02/06/23 Caudal ORTIZ: 07/13/20 + eliquis History: Past Medical History: Diagnosis Date Abnormal results of liver function studies 11/25/2011 ADJ DISORDER W/DEPRES MOOD 04/10/2007 Anticoagulated on Coumadin 11/22/2011 Atrial fibrillation (HCC) 10/01/2010 JHA'S ESOPHAGUS 08/23/08 repeat EGD 1 year Jha's esophagus 04/07/2013 04/01/13: EGD short segment Jha's esophagus, repeat 03/2016, Dr. 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 11/22/2011 Near syncope 05/27/2011 NONALLERGIC RHINITIS 02/14/2010 Pernicious anemia 08/05/2008 Personal history of colonic polyps 04/21/2010 Personal history of colonic polyps 11/08/14 11/08/14: adenoma of the ascending colon, repeat 5 years Polyp of nasal sinus Pure hypercholesterolemia 10/12/2013 Rosacea 05/28/2007 Short-segment Jha's esophagus 04/01/13 UPPER GI ENDOSCOPY DIAGNOSTIC performed by Shamir Lee MD at [facility], SHORT SEGMENT BARRETTS, REPEAT EGD IN 3 YEAR SPOND COMPR LUMB SP CORD 08/21/2007 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 TRIGGER THUMB 06/13/2008 VITAMIN D DEFICIENCY NOS 10/03/2008 Warfarin anticoagulation 01/27/2013 Past Surgical History: Procedure Laterality Date COLONOSCOPY 10/22/2006 COLONOSCOPY W/ LESION REMOVAL, SNARE 05/15/2011 diverticulosis, polyp x1, bxs , path shows adenomatous tissue repeat 3 years COLONOSCOPY, DIAGNOSTIC (RECTUM) 11/08/2014 adenomatous polyp, diverticulosis, repeat 5 yrs/COLONOSCOPY FLEXIBLE PROXIMAL DIAGNOSTIC performed by Shamir Lee MD at [facility] COLONOSCOPY, DIAGNOSTIC (RECTUM) 04/05/2020 diverticulosis / COLONOSCOPY FLEXIBLE PROXIMAL DIAGNOSTIC performed by Shamir Lee MD at [facility] EGD, FLEXIBLE, DIAGNOSTIC 04/01/2013 UPPER GI ENDOSCOPY DIAGNOSTIC performed by Shamir Lee MD at [facility], SHORT SEGMENT BARRETTS, REPEAT EGD IN 3 YEARS EGD, FLEXIBLE, DIAGNOSTIC 05/01/2016 inflammation, repeat w/ colon recall/ESOPHAGOGASTRODUODENOSCOPY (EGD), FLEXIBLE, TRANSORAL, DIAGNOSTIC performed by Shamir Lee MD at [facility] EGD, FLEXIBLE, DIAGNOSTIC 04/05/2020 gastric polyp, Barretts w/ LGD, repeat 3 mo / ESOPHAGOGASTRODUODENOSCOPY (EGD), FLEXIBLE, TRANSORAL, DIAGNOSTIC performed by Shamir Lee MD at [facility] EGD, FLEXIBLE, DIAGNOSTIC 07/24/2021 acid reflux, repeat 2 yrs / ESOPHAGOGASTRODUODENOSCOPY (EGD), FLEXIBLE, TRANSORAL, DIAGNOSTIC performed by Ravi Mendoza MD at [facility] EGD, FLEXIBLE, DIAGNOSTIC 01/16/2022 acid reflux, repeat 2 yrs / [facility] EGD, FLEXIBLE, W/BIOPSY 08/23/2008 biopsies--mild chronic gastritis with Barretts, negative for H.Pylori and celiac--repeat EGD 1 year EGD, FLEXIBLE, W/BIOPSY 02/21/2010 bxs do not show any evidence of Barretts repeat in 3 years EGD, FLEXIBLE,W/ENDOSCOPIC US 11/24/2020 Jha, gastric polyp, GB sludge, repeat EGD 6 mo / [facility] EXPLORATION OF ABDOMEN 11/12/2011 Exploratory lap, sigmoid colon resection, hanna procedure 11/12/11 Dr. Baez at [facility] INFORMATION 02/11/2012 Laparoscopic lysis of adhesions, closure of colostomy, colon resection 02/11/12 Dr. Baez INFORMATION Laser procedure of OD for pressure/?glaucoma INJECT DX/THER SUBSTANCE INTERLAMINAR LUMBAR/SACRAL W IMAGE GUIDE 07/13/2020 INJECTION SPINE LUMBAR OR SACRAL performed by Master Faustin DO at OR [facility] INJECT DX/THER SUBSTANCE INTERLAMINAR LUMBAR/SACRAL W IMAGE GUIDE 03/06/2023 INJECTION SPINE LUMBAR OR SACRAL performed by Fabián Caballero DO at OR [facility] MISCELLANEOUS ORDER ([facility] ONLY) 10/09/2001 carpal tunnel surgery right hand REMOVAL OF APPENDIX Appendectomy REMOVAL OF TONSILS, UNDER AGE 12 SACROILIAC JOINT INJECT W/GUIDANCE 02/06/2022 INJECTION SACROILIAC JOINT performed by Master Faustin DO at OR [facility] SACROILIAC JOINT INJECT W/GUIDANCE 12/25/2022 INJECTION SACROILIAC JOINT performed by Master Faustin DO at OR [facility] SINUS SURGERY PROCEDURE NEC 09/08/2007 ? R endoscopic procedure/polypectomy - Dr. Yuan Current Outpatient Medications Medication Sig Dispense Refill Vardenafil HCl (LEVITRA) 20 MG Tablet Take 1 Tab by mouth daily as needed for Erectile Dysfunction.1 hour prior to intercourse, no more than 1 dose per day. 10 Tab 5 Clindamycin Phosphate 1 % SWAB Apply to face daily as needed 60 Each 1 fluticasone (FLONASE) 50 MCG/ACT nasal spray Administer 1 [place] into nostril in the morning. Ipratropium [place] 0.06 % Nasal Solution (Atrovent) instill 2 [...] Tablet Take 1,000 mcg by mouth daily. Venlafaxine HCl ER 150 MG Oral Capsule Extended Release 24 Hour (Effexor XR) Take 300 mg (2 pills) every day 180 Capsule 1 Allopurinol 100 MG Oral Tablet (Zyloprim) TAKE BY MOUTH 2 TABLETS IN THE MORNING. (Patient not taking: Reported on 04/07/2023) 180 Tablet 3 Tamsulosin HCl 0.4 MG Oral Capsule (Flomax) TAKE 1 CAPSULE AT BEDTIME 90 Capsule 3 Pantoprazole Sodium 40 MG Oral Tablet Delayed Release (Protonix) Take 1 Tablet by mouth in the morning. 180 Tablet 3 Torsemide 10 MG Oral Tablet (Demadex) Take one tablet by mouth only as needed. (Patient not taking:Reported on 02/25/2023) 60 Tablet 3 Eliquis 2.5 MG Oral [...] (toPROL XL) 1/2 tablet daily. 90Tablet 3 LORazepam 0.5 MG Oral Tablet (Ativan) Take 0.5 mg (1 pill) up to 4 times a day as needed for anxiety 120 Tablet 2 Doxycycline Monohydrate 50 MG Oral Capsule Take 50 mg by mouth daily. 30 Capsule 11 No current facility-administered medications for this visit. Review of patient's allergies indicates: Allergen Reactions Dust Upper resp sx Other Allergy (See Comments) Perfume that contains kiah root causes nasal congestion ASSESSMENT: Lumbar radicular pain RECOMMENDATION: Admits significant relief of low back and LE pain that is prolonged with injection therapy. Can complete daily activities with mild low back discomfort. Encouraged to continue conservative care including home exercise/stretching program and medication management. Advised to call if pain returns, consider repeat ORTIZ. Reiterated importance of spacing steroid procedure, + eliquis. Follow up as needed. Total call duration five minutes. Eleonora Nunes PA-C 05/01/2023 documented in this encounter Plan of Treatment Upcoming Encounters Date Type Specialty Care Team Description 05/05/2023 Telemedicine Psychiatry Pippa Ryan MD [address] [place] [address] 05/07/2023 Office Visit Sleep Disorders Herlinda Renee CRNP [address] [place] [address] 05/26/2023 [facility] Visit [facility] [address] [facility] [address] 08/11/2023 Office Visit Cardiology Russ Morley PA-C [address] [place] [address] 09/18/2023 [facility] Visit [facility] [address] [facility] [address] Scheduled Procedures Name Priority Associated Diagnoses Date/Ti [...] Additional history exists CKD HGB USE SMARTSET 38923 06/18/202306/18, 10/17/2021, 10/17/2021, Additional history exists CKD PHOS USE SMARTSET 90724 06/18/202306/08, 08/17/2021, 03/14/2020, Additional history exists GFR [...] and were consensually agreed upon. Care Teams Private Branch Exchange Service Adviser Relationship Specialty Start Date End Date Eamon Felder, DO [address] [place] [address] PCP - General Family Medicine 08/25/18 documented as of this encounter
--- OUTSIDE RECORDS SUMMARY | 2023-07-30 05:22 | External Medical Summary | Summary of Care ---
Author Name Unknown Organization [facility] Address [address] [place] [address] Phone [phone] Care Team Providers Care Pharmacology Professor Name Role Phone Bradford Eamon Clark BUSTAMANTE Primary Care Provider [phone] Reason for Visit * Reason Comments Fall Dizziness Encounter Details Date Type Department Care Team Description 04/07/2023 Convenient Care Visit [facility] [address] [place] [address] Jg Farooq PA-C [address] [facility] [address] [place] [address] Multiple falls*; Lightheadedness; Unsteady gait Allergies Active Allergy Reactions Severity Noted Date Comments Dust 04/15/2011 Upper resp sx Other Allergy (See Comments) 10/23/2012 Perfume that contains kiah root causes nasal congestion documented as of this encounter (statuses as of 04/07/2023) Medications Medication Sig Dispensed Refills Start Date [...] (FLONASE) 50 MCG/ACT nasal spray Administer 1 Gipsy into nostril in the morning. 0 Active Ipratropium Paris 0.06 % Nasal Solution (Atrovent)Indicatio ns:Periodic breathing [...] every day 180 Capsule 1 12/23/2022 Active Memantine HCl 10 MG Oral Tablet (Namenda) Take 10 mg (1 pill) twice a day 180 Tablet 1 12/24/2022 Active Additional Information Patient taking differently: Take 10 mg (1 pill) once per day, Reported on 01/31/2023 LORazepam 0.5 MG Oral Tablet (Ativan) Take 0.5 mg (1 pill) up to 4 times a day as needed for anxiety 120 Tablet 2 12/24/2022 Active Metoprolol Succinate ER 25 MG Oral Tablet Extended Release 24 Hour (toPROL XL)Indications:Palliative Care Nurse Practitioner jorge atrial fibrillation (HCC) TAKE 1 TABLET EVERY MORNING 90 Tablet 3 12/26/2022 Active Allopurinol 100 MG Oral Tablet (Zyloprim)Indicatio [...] as needed. 60 Tablet 3 01/31/2023 Active Doxycycline Hyclate 50 MG Oral Tablet Take 50 mg by mouth in the morning. 0 Active Eliquis 2.5 MG Oral Tablet (Apixaban)Indicatio ns:Chronic atrial fibrillation (HCC) TAKE 1 TABLET BY MOUTH TWICE A DAY 60 Tablet 3 03/14/2023 Active Hyoscyamine Sulfate 0.125 MG Sublingual Tablet Sublingual (Levsin)Indications :Irritable bowel syndrome One pill by mouth or under the tongue every 4 hours as needed for abdominal pain 40 Tablet 4 03/31/2023 Active documented as of this encounter (statuses as of 04/07/2023) Active Problems Problem Noted Date Sacroiliitis 11/06/2022 [...] as of this encounter (statuses as of 04/07/2023) Resolved Problems Problem Noted Date Resolved Date [...] as of this encounter (statuses as of 04/07/2023) Immunizations Name Administration Dates Next Due COVID-19 mRNA, LNP-s, No Pre serve, 2-Dose Series ([employer]) 07/28/2021,11/16/2020,10/17/2020 Pneumococcal Conjugate Vacc, 13 Valent (Prevnar) [...] Sign Reading Time Taken Comments Blood Pressure 142/88 04/07/2023 5:42 PM EDT Pulse 81 04/07/2023 5:42 PM EDT Temperature 36.7 C (98.1 F) 04/07/2023 5:42 PM ED T Respiratory Rate 16 04/07/2023 5:42 PM EDT Oxygen Saturation 97% 04/07/2023 5:42 PM EDT Inhaled Oxygen Concentration - - Weight 109.8 kg (242 lb) 04/07/2023 5:42 PM EDT Height 180.3 cm (5' 11") 04/07/2023 5:42 PM EDT Body Mass Index 33.75 04/07/2023 5:42 PM EDT documented in this encounter Progress Notes * Jg Farooq PA-C - 04/07/2023 6:03 PM EDT CONVENIENT CARE NOTE HPI: Ricardo Gray is a 82 year old male who presents with chief complaint of inc dizziness, falls x one week Here with Mellisa Started one week ago with lightheadedness. He got then dizzy 3-4 days ago, which is unusual for him, and he ended up falling. Has fallen three times in the last 5 days. Was in walk in closet, was bent down looking in a box, stood up and fell over into shelves. This happened a few times and then stood up too quickly and fell backwards into bed. In the last few days notes he has to sit on the side of the bed for a few minutes before getting up. Notes he feels unstable and unsteady gait increasingly worse in the last week. Notes symptoms have been mostly in the morning and then improve throughout the day, however today has been persistent throughout the day. No worsening sinus congestion from baseline. No cough, ST, fever, chills. Notes he has IBS and feels it is "active" right now-- having intermittent diarrhea and constipationover the last week. Has associated mild to moderate pain intermittently in abdomen with this. No blood in the stool. No nausea or vomiting. No headaches. No CP, SOB. Vision changes-- no acute changes. No urinary symptoms. No edema-- uses diuretic He has hit his head-- notes fallen 6-8 times in the last 5 years. In [place] in Oct fell and hit head-- was not seen at that time. He takes eliquis ROS: See HPI for positives and negatives. Patient denies additional complaints. PAST MEDICAL HISTORY: Patient Active Problem List Diagnosis Code Adjustment [...] G47.61 Stage 3b chronic kidney disease N18.32 Dementia without behavioral disturbance (HCC) F03.90 Chronic systolic congestive heart failure (HCC) I50.22 Sacroiliitis (HCC) M46.1 Alzheimer's dementia without behavioral disturbance (HCC) G30.9, F02.80 HPTH (hyperparathyroidism) (HCC) E21.3 Past Surgical History: Procedure Laterality Date COLONOSCOPY 10/22/2006 COLONOSCOPY W/ LESION REMOVAL, SNARE 05/15/2011 diverticulosis, polyp x1, bxs , path shows adenomatous tissue repeat 3 years COLONOSCOPY, DIAGNOSTIC (RECTUM) 11/08/2014 adenomatous polyp, diverticulosis, repeat 5 yrs/COLONOSCOPY FLEXIBLE PROXIMAL DIAGNOSTIC performed by Shamir Lee MD at ENDOSCOPY [facility] COLONOSCOPY, DIAGNOSTIC (RECTUM) 04/05/2020 diverticulosis / COLONOSCOPY FLEXIBLE PROXIMAL DIAGNOSTIC performed by Shamir Lee MD at ENDOSCOPY [facility] EGD, FLEXIBLE, DIAGNOSTIC 04/01/2013 UPPER GI ENDOSCOPY DIAGNOSTIC performed by Shamir Lee MD at ENDOSCOPY [facility], SHORT SEGMENT BARRETTS, REPEAT EGD IN 3 YEARS EGD, FLEXIBLE, DIAGNOSTIC 05/01/2016 inflammation, repeat w/ colon recall/ESOPHAGOGASTRODUODENOSCOPY (EGD), FLEXIBLE, TRANSORAL, DIAGNOSTIC performed by Shamir Lee MD at ENDOSCOPY [facility] EGD, FLEXIBLE, DIAGNOSTIC 04/05/2020 gastric polyp, Barretts w/ LGD, repeat 3 mo / ESOPHAGOGASTRODUODENOSCOPY (EGD), FLEXIBLE, TRANSORAL, DIAGNOSTIC performed by Shamir Lee MD at ENDOSCOPY [facility] EGD, FLEXIBLE, DIAGNOSTIC 07/24/2021 acid reflux, repeat 2 yrs / ESOPHAGOGASTRODUODENOSCOPY (EGD), FLEXIBLE, TRANSORAL, DIAGNOSTIC performed by Ravi Mendoza MD at ENDOSCOPY [facility] EGD, FLEXIBLE, DIAGNOSTIC 01/16/2022 acid reflux, repeat 2 yrs / [facility] EGD, FLEXIBLE, W/BIOPSY 08/23/2008 biopsies--mild chronic gastritis with Barretts, negative for H.Pylori and celiac--repeat EGD 1 year EGD, FLEXIBLE, W/BIOPSY 02/21/2010 bxs do not show any evidence of Barretts repeat in 3 years EGD, FLEXIBLE,W/ENDOSCOPIC US 11/24/2020 Jha, gastric polyp, GB sludge, repeat EGD 6 mo / [facility] EXPLORATION OF ABDOMEN 11/12/2011 Exploratory lap, sigmoid colon resection, hanna procedure 11/12/11 Dr. Baez at [facility] INFORMATION 02/11/2012 Laparoscopic lysis of adhesions, closure of colostomy, colon resection 02/11/12 Dr. Baez INFORMATION Laser procedure of OD for pressure/?glaucoma INJECT DX/THER SUBSTANCE INTERLAMINAR LUMBAR/SACRAL W IMAGE GUIDE 07/13/2020 INJECTION SPINE LUMBAR OR SACRAL performed by Master Faustin DO at [facility] INJECT DX/THER SUBSTANCE INTERLAMINAR LUMBAR/SACRAL W IMAGE GUIDE 03/06/2023 INJECTION SPINE LUMBAR OR SACRAL performed by Fabián Caballero DO at [facility] MISCELLANEOUS ORDER ([facility] ONLY) 10/09/2001 carpal tunnel surgery right hand REMOVAL OF APPENDIX Appendectomy REMOVAL OF TONSILS, UNDER AGE 12 SACROILIAC JOINT INJECT W/GUIDANCE 02/06/2022 INJECTION SACROILIAC JOINT performed by Master Faustin DO at OR [facility] SACROILIAC JOINT INJECT W/GUIDANCE 12/25/2022 INJECTION SACROILIAC JOINT performed by Master Faustin DO at OR [facility] SINUS SURGERY PROCEDURE NEC 09/08/2007 ? R endoscopic procedure/polypectomy - Dr. Yuan Review of patient's allergies indicates: Allergen Reactions [...] (FLONASE) 50 MCG/ACT nasal spray Administer 1 Gipsy into nostril in the morning. Ipratropium Paris 0.06 % Nasal Solution (Atrovent) instill 2 sprays into each nostril three times a day if needed for allergies CPAP every [...] (2 pills) every day 180 Capsule 1 Memantine HCl 10 MG Oral Tablet (Namenda) Take 10 mg (1 pill) twice a day (Patient taking differently: Take 10 mg (1 pill) once per day) 180 Tablet 1 LORazepam 0.5 MG Oral Tablet (Ativan) Take 0.5 mg (1 pill) up to 4 times a day as needed for anxiety 120 Tablet 2 Metoprolol Succinate ER 25 MG Oral Tablet Extended Release 24 Hour (toPROL XL) TAKE 1 TABLET EVERY MORNING 90 Tablet 3 Tamsulosin HCl 0.4 MG Oral Capsule (Flomax) TAKE 1 CAPSULE AT BEDTIME 90 Capsule 3 Pantoprazole Sodium 40 MG Oral Tablet Delayed Release (Protonix) Take 1 Tablet by mouth in the morning. 180 Tablet 3 Doxycycline Hyclate 50 MG Oral Tablet Take 50 mg by mouth in the morning. Eliquis 2.5 MG Oral Tablet (Apixaban) TAKE 1 TABLET BY MOUTH TWICE A DAY 60 Tablet 3 Hyoscyamine Sulfate 0.125 MG Sublingual Tablet Sublingual (Levsin) One pill by mouth or under the tongue every 4 hours as needed for abdominal pain 40 Tablet 4 Clindamycin Phosphate 1 % SWAB Apply to face daily as needed 60 Each 1 Mckinley 2 % External Pad (Erythromycin) apply topically TO FACE DAILY FOR ROSACEA as directed by prescriber 60 Each 1 Allopurinol 100 MG Oral Tablet (Zyloprim) TAKE BY MOUTH 2 TABLETS IN THE MORNING. (Patient not taking: Reported on 04/07/2023) 180 Tablet 3 Torsemide 10 MG Oral Tablet (Demadex) Take one tablet by mouth only as needed. (Patient not taking: Reported on 02/25/2023) 60 Tablet 3 No current facility-administered medications for this visit. Nursing Notes: Grace Poe, MICROSTRATEGY ARCHITECT 04/07/23 1750 Signed Ricardo Gray,is a 82 year old male, who presents to the walk in clinic today c/o fall x 2 while bending over in closet five days ago and fall to bed (backwards) about three days ago. Also c/o dizziness and lightheadedness for about a week. Denies bumping head, LOC or other injuries from fall. Did not use any OTC meds. EXAM: BP 142/88 (BP Site: Left Arm, BP Position: Sitting, BP Cuff Size: Regular) | Pulse 81 | Temp 36.7 C (98.1 F) (Tympanic) | Resp 16 | Ht 1.803 m (5' 11") | Wt 109.8 kg (242 lb) | SpO2 97% | BMI 33.75 kg/m | BSA 2.35 m GENERAL: alert, healthy, no distress, well nourished and well developed HEAD: Normocephalic, atraumatic EYES: PERRL, EOMI, Conjunctiva are pink and non-injected, sclera clear EARS: External ears normal, Canals clear, TM's clear with good cone of light NOSE: no purulent discharge, no sinus tenderness, no mucosal erythema or edema OROPHARYNX: no exudate, no erythema, lips, buccal mucosa, and tongue normal and mucous membranes are moist NECK: supple, no adenopathy HEART: regular rate & rhythm, no murmurs and no gallops LUNGS: clear to auscultation bilaterally, no wheezing, rales or rhonchi ABDOMEN: abdomen soft, non-tender, normal bowel sounds, no masses or organomegaly, no rebound or guarding, no CVA tenderness, no bladder distention identified and no bruits SKIN: skin color, texture, turgor are normal, left arm-- superficial abrasion, non bleeding, scabbing NEURO: alert & oriented x 3 with fluent speech, no focal motor/sensory deficits Results for orders placed or performed in visit on 04/07/23 GLUCOSE METER, POINT OF CARE (ENTER/EDIT) Result Value Ref Range Glucose Meter Result 105 70 - 120 mg/dL *Note: Due to a large number of results and/or encounters for the requested time period, some results have not been displayed. A complete set of results can be found in Results Review. ASSESSMENT/PLAN Multiple falls (Primary) - GLUCOSE METER, POINT OF CARE (ENTER/EDIT) Lightheadedness - GLUCOSE METER, POINT OF CARE (ENTER/EDIT) Unsteady gait - GLUCOSE METER, POINT OF CARE (ENTER/EDIT) Pt sent to [facility] ER for further evaluation-- needs stat labs and head imaging with worsening symptoms, unsteady gait, and multiple falls. Family will drive directly to the ER. Called and given report to charge nurse, Shira, for continuity of care. Pt verbalized understanding and agrees with plan. Questions/Concerns addressed. Jg Farooq PA-C [address] [address] documented in this encounter Nursing Notes * Grace Poe LPN - 04/07/2023 5:47 PM EDT Ricardo Garcia Isaac,is a 82 year old male, who presents to the walk in clinic today c/o fall x 2 while bending over in closet five days ago and fall to bed (backwards) about three days ago. Also c/o dizziness and lightheadedness for about a week. Denies bumping head, LOC or other injuries from fall. Did not use any OTC meds. documented in this encounter Plan of Treatment Upcoming Encounters Date Type Specialty Care Team Description 05/01/2023 Telemedicine Pain Medicine Day, YULI Crews [address] [place] [address] 05/05/2023 Telemedicine Psychiatry Pippa Ryan MD [address] [place] [address] 05/07/2023 Office Visit Neurology Jemima Junior PA-C [address] [place] [address] 05/07/2023 Office Visit Sleep Disorders Herlinda Renee CRNP [address] [place] [address] 05/26/2023 Office Visit Family Medicine Eamon Felder DO [address] [facility] [place] [address] 08/11/2023 Office Visit Cardiology Russ Morley PA-C [address] [place] [address] 09/18/2023 Office Visit Nephrology Gi Castillo PA-C [address] [place] [address] Scheduled Procedures Name Priority Associated Diagnoses Date/Ti me ESOPHAGOGASTRODUODENOSCOPY ( EGD), FLEXIBLE, TRANSORAL, DIAGNOSTIC Recall Acid reflux Health Maintenance Due Date Last Done Comments Zoster Vaccines (2 of 3) 09/07/2012 07/13/2012 COVID-19 Vaccine (4 - Pfizer series) 09/22/2021 07/28/2021, 11/16/2020, 10/17/2020 Depression Screening, Annual for Pts 12 and Over 10/30/2021 10/30/2020 GFR 05/09/2023 11/06/2022, 06/08, 10/17/2021, Additional history exists Influenza Vaccine (FLU shot) (#1) 2023 06/21/2022, 07/26/2021, 05/31/2020, Additional history exists Albumin/Creatinine Ratio 06/18/2023 022, 10/19/2021, 01/04/2021, Additional history exists CKD HGB USE SMARTSET 12201 06/18/202306/18, 10/17/2021, 10/17/2021, Additional history exists CKD PHOS USE SMARTSET 49087 06/18/202306/08, 08/17/2021, 03/14/2020, Additional history exists DTaP,Tdap,and Td Vaccines (2 [...] Procedure Name Priority Date/Time Associated Diagnosis Comments GLUCOSE METER, POINT OF CARE (ENTER/EDIT) Routine 04/07/2023 Multiple falls Lightheadedness Unsteady gait documented in this encounter Results * GLUCOSE METER, POINT OF CARE (ENTER/EDIT) (04/07/2023) Glucose Meter Result 105 70 - 120 mg/dL Blood 04/07/2023 Jg Farooq PA-C LAB POINT OF CA RE TEST ENTER/EDIT ORDERABLES documented in this encounter Visit Diagnoses Diagnosis Multiple falls- Primary Personal history of fall Lightheadedness Dizziness and giddiness Unsteady gait Abnormality of gait documented in this encounter Advance Directives Latest Code Status on File Code Status Date Activated Date Inactivated Comments Full Code 07/07/2020 12:46 AM 07/12/2020 5:11 PM Thi s order reflects the patients wishes and were consensually agreed upon. Care Teams Pharmacology Professor Relationship Specialty Start Date End Date Eamon Felder, DO [address] [facility] [place] [address] PCP - General Family Medicine 08/25/18 documented as of this encounter
--- OUTSIDE RECORDS SUMMARY | 2023-07-30 05:22 | External Medical Summary ---
Author Name Unknown Address Unknown Organization K[facility] [place] [address] Laboratory Report Ordering Provider Test Date Status JOHNNY VALLES 04/14/2023 16:05:15 Final Observation Date Value Abnormality Reference (Units ) Status BUN 04/14/2023 16:05:15 22 Above high normal 6-20 (mg/dL) Final Creatinine 04/14/2023 16:05:15 1.5 Above high normal 0.6-1.2 (mg/dL) Final Glomerular filtration rate/1.73 sq M.predicted [Volume Rate/Area] in Serum, Plasma or Blood by Creatinine-based formula (CKD-EPI) 04/14/2023 16:05:15 49 Below low normal >=60 (mL/min) Final eGFR is calculated based on the CKD-EPI 2020 equation SODIUM 04/14/2023 16:05:15 143 135-146 (m mol/L) Final Potassium 04/14/2023 16:05:15 3.9 3.5-5.1 (m mol/L) Final Cl 04/14/2023 16:05:15 105 98-107 (mm ol/L) Final CO2 04/14/2023 16:05:15 27 22-32 (mmo l/L) Final Anion gap 04/14/2023 16:05:15 11 7-15 (mmol /L) Final Glucose 04/14/2023 16:05:15 88 70-120 (mg /dL) Final Albumin 04/14/2023 16:05:15 3.9 3.8-5.0 (g /dL) Final AST (Aspartate aminotransferase) 04/14/2023 16:05:15 22 10-50 (U/L) Final Alk Phos 04/14/2023 16:05:15 123 35-130 (U/ L) Final Bilirubin, Total 04/14/2023 16:05:15 0.6 <=1 .2 (mg/dL) Final Calcium 04/14/2023 16:05:15 9.1 8.4-10.2 ( mg/dL) Final Protein 04/14/2023 16:05:15 6.2 6.0-8.3 (g /dL) Final ALT (Alanine aminotransferase) 04/14/2023 16:05:15 24 10-50 (U/L) Final Performing Location [facility] [address] [place] [address]
--- OUTSIDE RECORDS SUMMARY | 2023-07-30 05:22 | External Medical Summary | Summary of Care ---
Author Name Unknown Organization [facility] Address [address] [place] [address] Phone [phone] Care Team Providers Care Business Employment Specialist Name Role Phone Bradford Eamon Clark BUSTAMANTE Primary Care Provider [phone] Reason for Visit * Auth/Cert Specialty Diagnoses / Procedures Referred By Cecile jaffe Referred To Contact Diagnoses Lumbar radiculopathy Lumbar radiculopathy [M54.16] Procedures INJECT DX/THER SUBSTANCE INTERLAMINAR LUMBAR/SACRAL W IMAGE GUIDE INJECTION SPINE LUMBAR OR SACRAL Referral ID Status Reason Start Date Expiration Date Visits Re quested Visits Authorized [id number] Encounter Details Date Type Department Care Team Description 03/06/2023 Hospital Encounter OR [facility], Operating Room [facility] [address] [place] [id number] Fabián Caballero DO [address] [place] [id number] Allergies Active Allergy Reactions Severity Noted Date Comments Dust 04/15/2011 Upper resp sx Other Allergy (See Comments) 10/23/2012 Perfume that contains kiah root causes nasal congestion documented as of this encounter (statuses as of 03/06/2023) Medications Medication Sig Dispensed Refills Start Date [...] (FLONASE) 50 MCG/ACT nasal spray Administer 1 [place] into nostril in the morning. 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 180 Tablet 3 01/06/2023 Active Tamsulosin HCl 0.4 MG Oral Capsule [...] by mouth in the morning. 0 Active Hyoscyamine Sulfate 0.125 MG Sublingual Tablet Sublingual (Levsin)Indications :Irritable bowel syndrome One pill by mouth or under the tongue every 4 hours as needed for abdominal pain 40 Tablet 4 03/03/2023 Active documented as of this encounter (statuses as of 03/06/2023) Active Problems Problem Noted Date Sacroiliitis 11/06/2022 [...] as of this encounter (statuses as of 03/06/2023) Resolved Problems Problem Noted Date Resolved Date [...] as of this encounter (statuses as of 03/06/2023) Immunizations Name Administration Dates Next Due COVID-19 mRNA, LNP-s, No Pre serve, 2-Dose Series (cVidya) 07/28/2021,11/16/2020,10/17/2020 Pneumococcal Conjugate Vacc, 13 Valent (Prevnar) [...] Sign Reading Time Taken Comments Blood Pressure 132/96 03/06/2023 9:01 AM EDT Pulse 68 03/06/2023 9:01 AM EDT Temperature 36.5 C (97.7 F) 03/06/2023 8:16 AM ED T Respiratory Rate 16 03/06/2023 9:01 AM EDT Oxygen Saturation 97% 03/06/2023 9:01 AM EDT Inhaled Oxygen Concentration - - Weight - - Height - - Body Mass Index - - documented in this encounter Discharge Instructions * Discharge Instr - AVS* Fabián Caballero DO - 03/06/2023 8:56 AM EDT [facility] [address] [place] [address] Discharge Date: 03/06/2023 You may call [facility] at [phone] during business hours. For after-hours emergencies call 911. Your attending physician at the time of your discharge was: Fabián Caballero DO [address] [facility] [place] [address] The information below provides you with the instructions and the list of medications you need to betaking following discharge from the hospital. If you have any questions, please ask before leaving.Please carry this letter with you when you see your doctor in the clinic. Diet: Resume your normal diet If you are diabetic, follow your blood sugars closely for next 2-3 days as they are likely to be elevated. If you are having difficulty controlling your blood sugars call your family doctor or the physician that treats your diabetes. Activity: Do not engage in strenuous activity today Resume your normal activities tomorrow Do not soak in water for 24 hours. No swimming, hot tub or bath but showering is allowed. Do not use heat on the injection site for 24 hours. If uncomfortable ice may be helpful. Some injections may make your arms or legs weak for a few hours. Be extremely careful when walking or changing positions that you do not fall. Have someone assist you for the next 6 hours. If weakness or numbness becomes progressive CALL IMMEDIATELY or GO TO THE NEAREST EMERGENCY ROOM Keep a diary of your pain until seen in the office to help us determine how effective the injectionwas Do not restart physical therapy or chiropractic manipulation until 48 hours after your injection Call : If weakness or numbness suddenly becomes worse or become progressive If the injection site becomes red, swollen, warm to the touch, begins to bleed or drain fluid, or is excessively painful. If you have any questions Medications: Resume all the medications you were taking prior to your injection. Resume your anticoagulants tomorrow unless otherwise instructed by your family physician, line cleaner or the anticoagulation clinic. Additional Instructions: None Driving: You may resume driving 12-24 hours if no weakness is noted . Date you may return to work or school: N/A Follow Up: Follow-up with Eleonora Nunes PA-C in 8 weeks via telehealth or in-person appointment per your preference. documented in this encounter Progress Notes * Fabián Caballero DO - 03/06/2023 8:56 AM EDT [facility] [place] [address] [facility] [place] [address] OUTPATIENT SURGERY DISCHARGE SUMMARY NOTE Name: Ricardo Gray Location: OR [facility]/OR Date: 03/06/2023 Time: 8:56 AM Surgery Date: 03/06/2023 Procedure: Procedure(s): INJECTION SPINE LUMBAR OR SACRAL No laterality found for procedure #1 Surgeon: Surgeon(s): Fabián Caballero DO Discharge Diagnosis: Lumbosacral radicular pain After examination of this patient, I have determined he is ready for discharge to home when the patient meets criteria. Discharge instructions were given to the patient. Fabián Caballero DO OR [facility], Operating Room [facility] [address] [place] [phone] documented in this encounter H&P Notes * Fabián Caballero DO - 03/06/2023 7:32 AM EDT Interventional Pain H&P Subjective: History of Present Illness: Ricardo Gray is a 82 year old year-old male with a past medical history significant for lumbarradicular pain who is presenting for lumbar ORTIZ to improve his pain and function. his pain is essentially unchanged since our last telephonic encounter with him. ASA 3 AW nml Review of Systems: A focused 12-pt ROS were of reviewed with the patient including difficulty with sleep, snoring, aspiration history, dysphagia, stomach pain, nausea and vomiting, severe headaches, confusion, open skin lesions or wounds, chest pain, shortness of breath, excessive thirst, somnolence, dysuria, incomplete bladder emptying, easy bruising, recent clotting problems or bleeding, depression or rushed thoughts unless noted previously. Review of patient's allergies indicates: Allergen Reactions Dust Upper resp sx Other Allergy (See Comments) Perfume that contains kiah root causes nasal congestion Medications, Past Medical History, Past Surgical History reviewed and documented in Epic. See detailed report if needed. Pertinent Labs/Test Results: No components found for: PLTS, INR No results found for: CREATININE Hemoglobin A1C (%) Date Value 12/22/2013 5.5 No results found for: AMPHETAMINE, BARBITURATES, BENZODIAZEPINES, BUPRENORPHINE, METHADONE, OPIATES, OXYCODONE, PHENCYCLIDINE, CANNABINOIDS, TOX SCREEN, TOX SCREEN-SERUM Imaging: I personally reviewed the imaging and my findings were . FLUORO INTERVENTIONAL PAIN PROCEDURE NONBILLABLE This procedure will not be read by a Radiologist. Please see operative note. Objective Physical Exam: Vital Signs: There were no vitals taken for this visit. There is no height or weight on file to calculate BMI. General: No apparent distress. Eyes: pupils equal and round, sclera white, pupils midsize. ENT: mucous membranes moist Resp: Non-labored breathing CV: Extremities warm and well-perfused. Psych: Oriented; affect warm, insight good. Skin: No rashes or lesions appreciated on exposed skin Neuromuscular Exam: Facet loading neg, SLR pos, TTT over lumbar spin Assessment: Ricardo is a 82 year old year-old male with: Lumbar radicular pain Plan: The patient is undergoing LESI vs. Caudal ORTIZ today to alleviate his pain and improve his function. The risks, benefits and alternatives to the procedure were reviewed at length and the patient was provided the opportunity to ask questions which were answered to their voiced understanding. Following this comprehensive discussion, the patient opted to proceed. The patient was consented to the procedure following this comprehensive conversation. Fabián Caballero DO OR [facility], Operating Room [address] [address] documented in this encounter Nursing Notes * Gege Michelle RN - 03/06/2023 9:00 AM EDT Visited by Dr Caballero. Verbalized understanding of discharge directions. Ready for discharge to home. * Norma Tay RN - 03/06/2023 8:51 AM EDT Patient tolerating procedure without complications. documented in this encounter OR Notes * OR Surgeon - Fabián Caballero DO - 03/06/2023 8:52 AM EDT INTERLAMINAR LUMBAR EPIDURAL STEROID INJECTION DATE: 03/06/2023 PHYSICIAN: Fabián Caballero DO PREOPERATIVE DIAGNOSIS: Lumbar spondylosis with lumbar radiculopathy. POSTOPERATIVE DIAGNOSIS: Lumbar spondylosis with lumbar radiculopathy. PROCEDURE PERFORMED: L5/S1 interlaminar epidural steroid injection on the left side. Fluoroscopy for precise needle placement. ANESTHESIA: Local infiltration with 1% lidocaine. MONITORS: Automatic blood pressure cuff, pulse oximetry. There was no assistant restaurant general manager, EBL or drains placed during this procedure. INDICATIONS: I had the pleasure of seeing Ricardo Gray ([id number]) [facility]. Ricardo Gray is a 82 year old year-old male has a history of lumbar radiculopathy. he is here today for an interlaminar lumbar epidural steroid injection today. MEDICATIONS: No current facility-administered medications for this encounter. ALLERGIES: Review of patient's allergies indicates: Allergen Reactions Dust Upper resp sx Other Allergy (See Comments) Perfume that contains kiah root causes nasal congestion REVIEW OF SYSTEMS: Negative for fever, chills, chest pain, SOB, bleeding abnormalities, nausea, vomiting, diarrhea, worsening edema, or new rashes. FOCUSED PHYSICAL EXAMINATION: The patient is awake, alert and oriented, and is in no acute distress. Vital signs are stable. The patient is afebrile. The rest of the PE is essentially unchanged from the patient's recent visit to our office. I explained the procedure to the patient including the risks, benefits and alternatives to the procedure. The risks discussed with the patient included but were not limited to: bleeding, infection, and damage to surrounding nerves, tissues, and organs, paralysis, increased pain, pain at the site ofinjection, allergic reaction, blood pressure instability, seizures, heart block, headaches, increase in blood sugar, worsening of glaucoma, blindness, manic episodes, mood instability, . Alternatives to the procedure were also explained and include: do nothing, surgery, medications, and physical therapy. The patient verbalized understanding and was willing to proceed. PROCEDURE IN DETAIL: An informed consent was obtained. The patient was taken to the procedure room,was positively identified by the staff and attending physician. The patient was positioned prone onthe procedure bed. Vital signs were monitored as above and remained stable throughout the procedure. The skin was prepped and draped in a standard sterile fashion. A surgical pause time-out was performed and agreed upon by the members of the team. Fluoroscopic view of the lumbar spine was obtained and the area of interest was identified. The skin and subcutaneous tissues were anesthetized using 1% lidocaine and 25-gauge 1-1/2 inch needle. After that, a 20-gauge, 3.5-inch epidural needle was advanced towards the L5/S1 interlaminar windowin the left paramedian position. AP, contralateral oblique and lateral views were used to assess appropriate needle position. Loss of resistance to air technique was utilized and was obtained at 6.5 cm from the skin. The needle's position was additionally verified by injecting radiopaque dye, whichshowed spread of the dye in the epidural space in AP and lateral views. After negative aspiration for CSF and blood, 80 mg of Kenalog diluted in 2 mL of 1% lidocaine was injected into the epidural space. The needle was withdrawn. The patient tolerated the procedure well. COMPLICATIONS: None. DISPOSITION: No follow-ups on file. 1. Return to clinic in 2 months for follow-up evaluation, sooner as needed. 2. Resume activity as tolerated. 3. Patient can drive after 12-24 hours if no weakness noted. Fabián Caballero DO OR [facility], Operating Room [facility] [address] [facility] [place] [address] documented in this encounter Plan of Treatment Upcoming Encounters Date Type Specialty Care Team Description 05/01/2023 Telemedicine Pain Medicine Manju, YULI Crews [address] [facility] [place] [id number] 05/05/2023 Telemedicine Psychiatry Pippa Ryan MD [address] [place], [place] [id number] 05/07/2023 Office Visit Neurology Jemima Junior PA-C [address] [facility] [place] [address] 05/07/2023 Office Visit Sleep Disorders Herlinda Renee CRNP [address] [place] [phone] 05/26/2023 Office Visit Family Medicine Eamon Felder DO [address] [facility] [place] [address] 08/11/2023 Office Visit Cardiology Russ Morley PA-C [address] [place] [address] 09/18/2023 Office Visit Nephrology Gi Castillo PA-C [address] [place] [address] Scheduled Procedures Name Priority Associated Diagnoses Date/Ti me INJECTION SPINE LUMBAR OR SACRAL Lumbar radiculopathy 03/06/2023 8:39 AM EDT ESOPHAGOGASTRODUODENOSCOPY ( EGD), FLEXIBLE, TRANSORAL, DIAGNOSTIC Recall Acid reflux Health Maintenance Due Date Last Done Comments Zoster Vaccines (2 of 3) 09/07/2012 07/13/2012 COVID-19 Vaccine (4 - Pfizer series) 09/22/2021 07/28/2021, 11/16/2020, 10/17/2020 Depression Screening, Annual for Pts 12 and Over 10/30/2021 10/30/2020 GFR 05/09/2023 11/06/2022, 06/08, 10/17/2021, Additional history exists Albumin/Creatinine Ratio 06/18/20232 022, 10/19/2021, 01/04/2021, Additional history exists CKD HGB USE SMARTSET 28486 06/18/202306/18, 10/17/2021, 10/17/2021, Additional history exists CKD PHOS USE SMARTSET 12607 06/18/202306/08, 08/17/2021, 03/14/2020, Additional history exists DTaP,Tdap,and Td Vaccines (2 - Td or Tdap) 10/26/2025 10/26/2015, 06/13/2008 Pneumococcal Vaccine: 65+ Years Completed 10/26/2015, 06/13/2008 COLONOSCOPY-EVERY 5 YRS AGES 18-100 Discontinued 04/05/2020, 04/05/2020, 11/08/2014, Additional history exists Influenza Vaccine (FLU shot) Completed 06/21/2022, 07/26/2021, 05/31/2020, Additional history exists GARDASIL-HPV IMMUNIZATION SERIES Aged [...] Procedure Name Priority Date/Time Associated Diagnosis Comments FLUORO INTERVENTIONAL PAIN PROCEDURE NONBILLABLE Routine 03/06/2023 8:59 AM EDT documented in this encounter Results * FLUORO INTERVENTIONAL PAIN PROCEDURE NONBILLABLE (03/06/2023 8:59 AM EDT) Narrative Scheduling, Silent - 03/06/2023 9:00 AM EDT This procedure will not be read by a Radiologist. Please see operative note. Fabián Julio Cesar Ada BUSTAMANTE RAD FLUOROSCOPY documented in this encounter Administered Medications Inactive Administered Medications - up to 3 most recent administrations Medication Order MAR Action Action Date Dose Rate Site Iohexol (Omnipaque 180) inj 1 mL 1 mL, Intravenous, ONCE, On Kira 03/06/23 at 0845, For 1 dose Given 03/06/2023 8:48 AM EDT 1 mL lidocaine 1 % inj 20 mg 20 mg (2 mL), Subcutaneous, ONCE, On Kira 03/06/23 at 0845, For 1 dose Given 03/06/2023 8:47 AM EDT 20 mg O ther-Specify Triamcinolone Acetonide (Kenalog) 40 MG/ML inj 80 mg 80 mg, Injection, ONCE, On Kira 03/06/23 at 0930, For 1 dose Given 03/06/2023 8:51 AM EDT 80 mg documented in this encounter Active and Recently Administered Medications Times are shown in EDT. Scheduled Medication Order 03/04/2023 03/05/2023 03/06/2023 Iohexol (Omnipaque 180) inj 1 mL (COMPLETED) 1 mL, Intravenous, ONCE, On Kira 03/06/23 at 0845, For 1 dose 0848 (Given - Provid er: Norma Tay RN) lidocaine 1 % inj 20 mg (COMPLETED) 20 mg (2 mL), Subcutaneous, ONCE, On Kira 03/06/23 at 0845, For 1 dose 0847 (Given - Provid er: Norma Tay RN) Triamcinolone Acetonide (Kenalog) 40 MG/ML inj 80 mg (COMPLETED) 80 mg, Injection, ONCE, On Kira 03/06/23 at 0930, For 1 dose 0851 (Given - Provid er: Norma Tay RN) documented in this encounter Advance Directives Latest Code Status on File Code Status Date Activated Date Inactivated Comments Full Code 07/07/2020 12:46 AM 07/12/2020 5:11 PM Thi s order reflects the patients wishes and were consensually agreed upon. Care Teams Business Employment Specialist Relationship Specialty Start Date End Date Eamon Felder, DO [address] [place] [address] PCP - General Family Medicine 08/25/18 documented as of this encounter
--- OUTSIDE RECORDS SUMMARY | 2023-07-30 05:22 | External Medical Summary | Summary of Care ---
Author Name Unknown Organization [facility] Address [address] [place] [address] Phone [phone] Care Team Providers Care Medical Program Specialist Name Role Phone Bradford Eamon Clark BUSTAMANTE Primary Care Provider [phone] Reason for Visit * Reason Comments Outpatient Testing Encounter Details Date Type Department Care Team Description 04/14/2023 Laboratory Laboratory [facility] [address] [place] [facility] [place] [id number] [facility] [address] [place] [id number] Orthostatic hypotension; Dizziness; Chronic atrial fibrillation (HCC); Chronic systolic congestive heart failure (HCC) Allergies Active Allergy Reactions Severity Noted Date Comments Dust 04/15/2011 Upper resp sx Other Allergy (See Comments) 10/23/2012 Perfume that contains kiah root causes nasal congestion documented as of this encounter (statuses as of 04/14/2023) Medications Medication Sig Dispensed Refills Start Date [...] (FLONASE) 50 MCG/ACT nasal spray Administer 1 [place] into nostril in the morning. 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 90 Tablet 3 04/14/2023 Active documented as of this encounter (statuses as of 04/14/2023) Active Problems Problem Noted Date Sacroiliitis 11/06/2022 [...] as of this encounter (statuses as of 04/14/2023) Resolved Problems Problem Noted Date Resolved Date [...] as of this encounter (statuses as of 04/14/2023) Immunizations Name Administration Dates Next Due COVID-19 [...] 05/01/2023 Telemedicine Pain Medicine DayEleonora PA-C [address] [facility] [place] [address] 05/05/2023 Telemedicine Psychiatry Pippa Ryan MD [address] [place] [address] 05/07/2023 Office Visit Neurology Jemima Junior PA-C [address] [facility] [address] [place] [address] 05/07/2023 Office Visit Sleep Disorders Herlinda Renee CRNP [address] [place] [address] 05/26/2023 Office Visit Family Medicine Eamon Felder DO [address] [place] [address] 08/11/2023 Office Visit Cardiology Russ Morley PA-C [address] [place] [address] 09/18/2023 Office Visit Nephrology Gi Castillo PA-C [address] [place] [address] Pending Results Name Type Priority Associated Diagnoses Date /Time COMPREHENSIVE METABOLIC PANEL Lab Routine Orthostatic hypotension Dizziness Chronic atrial fibrillation (HCC) 04/14/2023 4:05 PM EDT BNP, NT-PRO Lab Routine Chronic systolic congestive heart failure (HCC) 04/14/2023 4:05 PM EDT Scheduled Procedures Name Priority Associated [...] Additional history exists CKD HGB USE SMARTSET 85993 06/18/202306/18, 10/17/2021, 10/17/2021, Additional history exists CKD PHOS USE SMARTSET 47127 06/18/202306/08, 08/17/2021, 03/14/2020, Additional history exists DTaP,Tdap,and [...] as of this encounter Visit Diagnoses Diagnosis Orthostatic hypotension Dizziness Dizziness and giddiness Chronic atrial fibrillation (HCC) Atrial fibrillation Chronic systolic congestive heart failure (HCC) Chronic systolic heart failure documented in this encounter Advance Directives Latest Code Status on File Code Status Date Activated Date Inactivated Comments Full Code 07/07/2020 12:46 AM 07/12/2020 5:11 PM Thi s order reflects the patients wishes and were consensually agreed upon. Care Teams Medical Program Specialist Relationship Specialty Start Date End Date Eamon Felder, DO [address] [place] [address] PCP - General Family Medicine 08/25/18 documented as of this encounter
--- OUTSIDE RECORDS SUMMARY | 2023-07-30 05:22 | External Medical Summary | Summary of Care ---
Author Name Unknown Organization [facility] Address [address] [place] [address] Phone [phone] Care Team Providers Care Blow Molding Machine Tender Name Role Phone Bradford Eamon Clark BUSTAMANTE Primary Care Provider [phone] Reason for Visit * Reason Onset Date Comments FYI 04/15/2023 Recent admission and medication changes Encounter Details Date Type Department Care Team Description 04/15/2023 Telephone Family Practice [facility] [address] [place] [address] Ce Pfeiffer PA-C [address] [place] [address] FYI (Recent admission and medication changes) Allergies [...] (FLONASE) 50 MCG/ACT nasal spray Administer 1 [place] into nostril in the morning. 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 [...] sen yesterday for hospital follow-up. Admitted to [facility] for recurrent falls and orthostatic hypotension. Torsemide [...] Telemedicine Pain Medicine Day, YULI Crews [address] [facility] [place] [address] 05/05/2023 Telemedicine Psychiatry Pippa Ryan MD [address] [place] [address] 05/07/2023 Office Visit Neurology Jemima Junior PA-C [address] [place] [address] 05/07/2023 Office Visit Sleep Disorders Herlinda Renee CRNP [address] [place] [address] 05/26/2023 Office Visit Family Medicine Eamon Felder DO [address] [place] [address] 08/11/2023 Office Visit Cardiology Russ Morley PA-C [address] [place] [address] 09/18/2023 Office Visit Nephrology Gi Castillo PA-C [address] [facility] [address] Scheduled Procedures Name Priority Associated Diagnoses Date/Ti [...] Additional history exists CKD HGB USE SMARTSET 18169 06/18/202306/18, 10/17/2021, 10/17/2021, Additional history exists CKD PHOS USE SMARTSET 21115 06/18/202306/08, 08/17/2021, 03/14/2020, Additional history exists GFR [...] and were consensually agreed upon. Care Teams Blow Molding Machine Tender Relationship Specialty Start Date End Date Eamon Felder, DO [address] [facility] [place] [address] PCP - General Family Medicine 08/25/18 documented as of this encounter
--- OUTSIDE RECORDS SUMMARY | 2023-07-30 05:22 | External Medical Summary ---
Author Name Unknown Address Unknown Organization K01:[facility] - [address] [facility] [place] [address] Laboratory Report Ordering Provider Test Date Status JOHNNY VALLES 04/14/2023 16:05:15 Final Exclude Heart Failure: <300 pg/mL
Diagnose Heart Failure:
Age <50 yr: >450 pg/mL
50-75 yr: >900 pg/mL
>75 yr: >1800 pg/mL
GFR is 30-59 mL/min: >1200 pg/mL or Age- adjusted values
GFR <30 mL/min: do not use, not reliable

Prognostic threshold: 1000 pg/mL Observation Date Value Abnormality Reference (Units ) Status BNP, Pro-hormone 04/14/2023 16:05:15 783 Above high no rmal <300 (pg/mL) Final Performing Location [facility] - [address] [place] [address]
--- OUTSIDE RECORDS SUMMARY | 2023-07-30 05:22 | External Medical Summary | Summary of Care ---
Author Name Unknown Organization [facility] Address [address] [place] [address] Phone [phone] Care Team Providers Care Coin Machine Mechanic Name Role Phone Bradford Eamon Clark BUSTAMANTE Primary Care Provider [phone] Reason for Visit * Reason Comments eRx-Medication Refill Encounter Details Date Type Department Care Team Description 03/14/2023 Refill Cardiology, [facility] [address] [place] [place] [address] Dimas Romero DO [address] [place] [address] Chronic atrial fibrillation (HCC) Allergies Active Allergy Reactions Severity Noted Date Comments Dust 04/15/2011 Upper resp sx Other Allergy (See Comments) 10/23/2012 Perfume that contains kiah root causes nasal congestion documented as of this encounter (statuses as of 03/14/2023) Medications Medication Sig Dispensed Refills Start Date [...] (FLONASE) 50 MCG/ACT nasal spray Administer 1 [place] into nostril in the morning. 0 Active Ipratropium [place] 0.06 % Nasal Solution (Atrovent)Indicat ions:Periodic breathing [...] every day 180 Capsule 1 3 Active Memantine HCl 10 MG Oral Tablet (Namenda) Take 10 mg (1 pill) twice a day 180 Tablet 1 3 Active Additional Information Patient taking differently: Take 10 mg (1 pill) once per day, Reported on 01/31/2023 LORazepam 0.5 MG Oral Tablet (Ativan) Take 0.5 mg (1 pill) up to 4 times a day as needed for anxiety 120 Tablet 2 3 Active Metoprolol Succinate ER 25 MG Oral Tablet Extended Release 24 Hour (toPROL XL)Indications:Ch ronic atrial fibrillation (HCC) TAKE 1 TABLET EVERY MORNING 90 Tablet 3 3 Active Allopurinol 100 MG Oral Tablet (Zyloprim)Indicat ions:Acute sinusitis TAKE BY MOUTH 2 TABLETS IN THE MORNING. 180 Tablet 3 3 Active Tamsulosin HCl 0.4 MG Oral Capsule [...] as needed. 60 Tablet 3 3 Active Doxycycline Hyclate 50 MG Oral Tablet Take 50 mg by mouth in the morning. 0 Active Hyoscyamine Sulfate 0.125 MG Sublingual Tablet Sublingual (Levsin)Indicatio ns:Irritable bowel syndrome One pill by mouth or under the tongue every 4 hours as needed for abdominal pain 40 Tablet 4 3 Active Eliquis 2.5 MG Oral Tablet (Apixaban)Indicat ions:Chronic atrial fibrillation (HCC) TAKE 1 TABLET BY MOUTH TWICE A DAY 60 Tablet 3 3 Active Eliquis 2.5 MG Oral Tablet (Apixaban)Indicat ions:Chronic atrial fibrillation (HCC) TAKE 1 TABLET BY MOUTH TWICE A DAY 60 Tablet 3 3 03/14/20 23 Discontinued documented as of this encounter (statuses as of 03/14/2023) Active Problems Problem Noted Date Sacroiliitis 11/06/2022 [...] as of this encounter (statuses as of 03/14/2023) Resolved Problems Problem Noted Date Resolved Date [...] as of this encounter (statuses as of 03/14/2023) Immunizations Name Administration Dates Next Due COVID-19 mRNA, LNP-s, No Pre serve, 2-Dose Series ([facility] [employer]) 07/28/2021,11/16/2020,10/17/2020 Pneumococcal Conjugate Vacc, 13 Valent (Prevnar) [...] encounter Miscellaneous Notes * Telephone Encounter - Ron Smith PA-C - 03/14/2023 2:33 PM EDT Signed Prescriptions: Disp Refills Eliquis 2.5 MG Oral Tablet (Apixaban) 60 Tab*3 Sig: TAKE 1 TABLET BY MOUTH TWICE A DAY Authorizing Provider: RON SMITH * Telephone Encounter - Chelsey Bailon CMA - 03/14/2023 2:27 PM EDTPending Prescriptions: Disp Refills Eliquis 2.5 MG Oral Tablet [Pharmacy Med N*60 Tab*3 Sig: TAKE 1 TABLET BY MOUTH TWICE A DAY * Telephone Encounter - Chelsey Bailon CMA - 03/14/2023 2:26 PM EDT Did you pend patient's preferred pharmacy and medication before forwarding?yes Pharmacy: [id number] [address] [facility] Pending Prescriptions: Disp Refills Eliquis 2.5 MG Oral Tablet (Apixaban) [Ph*60 Tab*3 Sig: TAKE 1 TABLET BY MOUTH TWICE A DAY Last Visit: 01/31/2023 (in office), 01/07/2020 (telemedicine) Next Visit: 08/11/2023 If no future appointments scheduled, and last appointment is greater than a year ago, please schedule patient for a follow-up appointment Last date the medication was ordered: Is this request for a controlled substance?No Urine Drug Screen:No results found. However, due to the size of the patient record, not all encounters were searched. Please check Results Review for a complete set of results. Patient Phone Numbers Labs: Lab Results Component Value Date/Time CREAT 1.6 (H) 11/06/2022 03:39 PM CREAT 1.8 (H) 08/25/2020 10:07 AM POTASSIUM 3.8 11/06/2022 03:39 PM POTASSIUM 3.9 08/25/2020 10:07 AM TSH 2.74 10/17/2021 03:47 PM TSH 1.36 07/10/2020 12:22 PM LDLCALC 87 07/08/2020 07:44 AM LDLDIRECT NOT APPLICABLE 07/08/2020 07:44 AM LDLDIRECT 69 10/22/2017 12:36 PM ALT 15 11/06/2022 03:39 PM ALT 27 07/10/2020 12:22 PM HGBA1C 5.5 12/22/2013 09:33 AM documented in this encounter Plan of Treatment Upcoming Encounters Date Type Specialty Care Team Description 05/01/2023 Telemedicine Pain Medicine Man[place], YULI Crews [address] [place] [address] 05/05/2023 [facility]medicine [facility]iatry [facility] [address] [facility] [address] 05/07/2023 Office Visit Neurology Jemima Junior PA-C [address] [place] [address] 05/07/2023 Office Visit Sleep Disorders Herlinda Renee CRNP [address] [place] [address] 05/26/2023 Office Visit Family Medicine Eamon Felder DO [address] [facility] [place] [address] 08/11/2023 Office Visit Cardiology Russ Morley PA-C [address] [place] [address] 09/18/2023 Office Visit Nephrology Gi Castillo PA-C [address] [place] [address] Scheduled Procedures Name Priority Associated Diagnoses Date/Ti [...] Additional history exists CKD HGB USE SMARTSET 15414 06/18/202306/18, 10/17/2021, 10/17/2021, Additional history exists CKD PHOS USE SMARTSET 42576 06/18/202306/08, 08/17/2021, 03/14/2020, Additional history exists DTaP,Tdap,and [...] of this encounter Visit Diagnoses Diagnosis Chronic atrial fibrillation (HCC) Atrial fibrillation documented in this encounter Advance Directives Latest Code Status on File Code Status Date Activated Date Inactivated Comments Full Code 07/07/2020 12:46 AM 07/12/2020 5:11 PM Thi s order reflects the patients wishes and were consensually agreed upon. Care Teams Coin Machine Mechanic Relationship Specialty Start Date End Date Eamon Felder, DO [address] [facility] [place] [address] PCP - General Family Medicine 08/25/18 documented as of this encounter
--- OUTSIDE RECORDS SUMMARY | 2023-07-30 05:22 | External Medical Summary | Summary of Care ---
Author Name Unknown Organization [facility] Address [address] [place] [address] Phone [phone] Care Team Providers Care Logistics Administrator Name Role Phone Ale Cox DO Primary Care Provider [phone] Reason for Visit * Reason Onset Date Comments Medication Refill 03/29/2023 Encounter Details Date Type Department Care Team Description 03/29/2023 Refill Family Practice [facility] [place] [address] [facility] [place] [address] Ale Cox DO [address] [place] [address] Irritable bowel syndrome Allergies Active Allergy Reactions Severity Noted Date Comments Dust 04/15/2011 Upper resp sx Other Allergy (See Comments) 10/23/2012 Perfume that contains kiah root causes nasal congestion documented as of this encounter (statuses as of 03/31/2023) Medications Medication Sig Dispensed Refills Start Date [...] (FLONASE) 50 MCG/ACT nasal spray Administer 1 [place] into nostril in the morning. 0 Active Ipratropium [place] 0.06 % Nasal Solution (Atrovent)Indicat ions:Periodic breathing [...] 12/26/2022 Active Allopurinol 100 MG Oral Tablet (Zyloprim)Indicat [...] 0 Active Eliquis 2.5 MG Oral Tablet (Apixaban)Indicat ions:Chronic atrial fibrillation (HCC) TAKE 1 TABLET BY MOUTH TWICE A DAY 60 Tablet 3 03/14/2023 Active Hyoscyamine Sulfate 0.125 MG Sublingual Tablet Sublingual (Levsin)Indicatio ns:Irritable bowel syndrome One pill by mouth or under the tongue every 4 hours as needed for abdominal pain 40 Tablet 4 03/31/2023 Active Hyoscyamine Sulfate 0.125 MG Sublingual Tablet Sublingual (Levsin)Indicatio ns:Irritable bowel syndrome One pill by mouth or under the tongue every 4 hours as needed for abdominal pain 40 Tablet 4 03/03/2023 3 Discontinue d(Refill) documented as of this encounter (statuses as of 03/31/2023) Active Problems Problem Noted Date Sacroiliitis 11/06/2022 [...] as of this encounter (statuses as of 03/31/2023) Resolved Problems Problem Noted Date Resolved Date [...] as of this encounter (statuses as of 03/31/2023) Immunizations Name Administration Dates Next Due COVID-19 mRNA, LNP-s, No Pre serve, 2-Dose Series ([employer] 07/28/2021,11/16/2020,10/17/2020 Pneumococcal Conjugate Vacc, 13 Valent (Prevnar) [...] encounter Miscellaneous Notes * Telephone Encounter - Ale Cox DO - 03/31/2023 12:48 PM EDTSigned Prescriptions: Disp Refills Hyoscyamine Sulfate 0.125 MG Sublingual Ta*40 Tab*4 Sig: One pill by mouth or under the tongue every 4 hours as needed for abdominal pain Authorizing Provider: ALE COX * Telephone Encounter - Yolanda Gilbert LPN - 03/31/2023 12:36 PM EDT Pending Prescriptions: Disp Refills Hyoscyamine Sulfate 0.125 MG Sublingual Ta*40 Tab*4 Sig: One pill by mouth or under the tongue every 4 hours as needed for abdominal pain * Telephone Encounter - Yolanda Gilbert LPN - 03/31/2023 12:35 PM EDT Pending Prescriptions: Disp Refills Hyoscyamine Sulfate 0.125 MG Sublingual T*40 Tab*4 Sig: One pill by mouth or under the tongue every 4 hours as needed for abdominal pain Last Visit: 11/06/2022 (in office), 11/12/2022 (telemedicine) Next Visit: 05/26/2023 Last date the medication was ordered: 03/03/2023 Patient Active Problem List Diagnosis Code Adjustment [...] (HCC) G30.9, F02.80 HPTH (hyperparathyroidism) (HCC) E21.3 Labs: Lab Results Component Value Date/Time CREATININE - [facility] 1.6 (H) 11/06/2022 03:39 PM CREATININE - [facility] 1.8 (H) 08/25/2020 10:07 AM CREATININE, RANDOM URINE - [facility] 31 06/18/2022 12:37 PM CREATININE, RANDOM URINE - [facility] 71 09/10/2019 02:55 PM CREATININE-OUTSIDE LAB 1.53 (A) 05/12/2020 12:00 AM Lab Results Component Value Date/Time POTASSIUM - [facility] 3.8 11/06/2022 03:39 PM POTASSIUM - [facility] 3.9 08/25/2020 10:07 AM POTASSIUM-OUTSIDE LAB 4.0 05/12/2020 12:00 AM Lab Results Component Value Date/Time TSH - [facility] 2.74 10/17/2021 03:47 PM TSH - [facility] 1.36 07/10/2020 12:22 PM Lab Results Component Value Date/Time LDL CHOLESTEROL (CALCULATED) - [facility] 87 07/08/2020 07:44 AM LDL CHOLESTEROL (CALCULATED) - [facility] 70 10/22/2016 11:06 AM LDL CHOLESTEROL (DIRECT MEASURE) - [facility] NOT APPLICABLE 07/08/2020 07:44 AM LDL CHOLESTEROL (DIRECT MEASURE) - [facility] 69 10/22/2017 12:36 PM LDL CHOLESTEROL (DIRECT MEASURE) - [facility] NOT APPLICABLE 10/22/2016 11:06 AM Lab Results Component Value Date/Time ALT - [facility] 15 11/06/2022 03:39 PM ALT - [facility] 27 07/10/2020 12:22 PM ALT-OUTSIDE LAB 31 04/09/2017 12:00 AM Hemoglobin AIC Results: Lab Results Component Value Date/Time HEMOGLOBIN A1C - [facility] 5.5 12/22/2013 09:33 AM HEMOGLOBIN A1C - [facility] 5.7 02/12/2011 12:31 PM HEMOGLOBIN A1C - [facility] 5.6 12/14/2009 02:29 PM * Telephone Encounter - Darrin Kiran - 03/30/2023 12:35 AM EDTPending Prescriptions: Disp Refills Hyoscyamine Sulfate 0.125 MG Sublingual Ta*40 Tab*4 Sig: One pill by mouth or under the tongue every 4 hours as needed for abdominal pain documented in this encounter Plan of Treatment Upcoming Encounters Date Type Specialty Care Team Description 05/01/2023 Telemedicine Pain Medicine Day, YULI Crews [address] [facility] [place] [address] 05/05/2023 Telemedicine Psychiatry Pippa Ryan MD [address] [place] [address] 05/07/2023 Office Visit Neurology Jemima Junior PA-C [address] [place] [address] 05/07/2023 Office Visit Sleep Disorders Herlinda Renee CRNP [address] [place] [address] 05/26/2023 Office Visit Family Medicine Ale Cox DO [address] [place] [address] 08/11/2023 Office Visit Cardiology Russ Morley PA-C [address] [place] [address] 09/18/2023 Office Visit Nephrology Gi Castillo PA-C [address] [place] [address] Scheduled Procedures Name Priority Associated Diagnoses Date/Ti [...] Additional history exists CKD HGB USE SMARTSET 02996 06/18/202306/18, 10/17/2021, 10/17/2021, Additional history exists CKD PHOS USE SMARTSET 60189 06/18/202306/08, 08/17/2021, 03/14/2020, Additional history exists DTaP,Tdap,and [...] as of this encounter Visit Diagnoses Diagnosis Irritable bowel syndrome documented in this encounter Advance Directives Latest Code Status on File Code Status Date Activated Date Inactivated Comments Full Code 07/07/2020 12:46 AM 07/12/2020 5:11 PM Thi s order reflects the patients wishes and were consensually agreed upon. Care Teams Logistics Administrator Relationship Specialty Start Date End Date Ale Cox, DO [address] [facility] [place] [address] PCP - General Family Medicine 08/25/18 documented as of this encounter
--- OUTSIDE RECORDS SUMMARY | 2023-07-30 05:22 | External Medical Summary | Summary of Care ---
Author Name Unknown Organization [facility] Address [address] [place] [address] Phone [phone] Care Team Providers Care Offal Baler Name Role Phone Eamon Felder DO Primary Care Provider [phone] Reason for Visit * Reason Comments eRx-Medication Refill Encounter Details Date Type Department Care Team Description 03/09/2023 Refill Family Practice [facility] [address] [facility] [place] [address] Eamon Felder DO [address] [place] [address] Irritable bowel syndrome Allergies Active Allergy Reactions Severity Noted Date Comments Dust 04/15/2011 Upper resp sx Other Allergy (See Comments) 10/23/2012 Perfume that contains kiah root causes nasal congestion documented as of this encounter (statuses as of 03/10/2023) Medications Medication Sig Dispensed Refills Start Date [...] (FLONASE) 50 MCG/ACT nasal spray Administer 1 [place] into nostril in the morning. 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) TAKE 1 TABLET [...] as of this encounter (statuses as of 03/10/2023) Active Problems Problem Noted Date Sacroiliitis 11/06/2022 [...] as of this encounter (statuses as of 03/10/2023) Resolved Problems Problem Noted Date Resolved Date [...] as of this encounter (statuses as of 03/10/2023) Immunizations Name Administration Dates Next Due COVID-19 [...] encounter Miscellaneous Notes * Telephone Encounter - Janeth Bahena [facility] - 03/10/2023 10:53 AM EDTRefused Prescriptions: Disp Refills Hyoscyamine Sulfate 0.125 MG Sublingual Ta*40 Tab*3 Sig: TAKE 1TABLET BY MOUTH OR UNDER THE TONGUE EVERY 4 HOURS NEEDED FOR ABDOMINAL PAINRefused By: Anushka BAHENA for Refusal: Too soonReason for Refusal Comment: sent to [facility] 03/03 documented in this encounter Plan of Treatment Upcoming Encounters Date Type Specialty Care Team Description 05/01/2023 Telemedicine Pain Medicine Eleonora Nunes PA-C [address] [facility] [place] [id number] 05/05/2023 Telemedicine Psychiatry Pippa Ryan MD [address] [place] [address] 05/07/2023 Office Visit Neurology Jemima Junior PA-C [address] [place] [address] 05/07/2023 Office Visit Sleep Disorders Herlinda Renee CRNP [address] [place] [address] 05/26/2023 Office Visit Family Medicine Eamon Felder DO [address] [place] [address] 08/11/2023 Office Visit Cardiology Russ Morley PA-C [address] [place] [address] 09/18/2023 Office Visit Nephrology Gi Castillo PA-C [address] [place] [address] Scheduled Procedures Name Priority Associated Diagnoses Date/Ti [...] Additional history exists CKD HGB USE SMARTSET 11394 06/18/202306/18, 10/17/2021, 10/17/2021, Additional history exists CKD PHOS USE SMARTSET 59852 06/18/202306/08, 08/17/2021, 03/14/2020, Additional history exists DTaP,Tdap,and [...] and were consensually agreed upon. Care Teams Offal Baler Relationship Specialty Start Date End Date Eamon Felder, DO [address] [place] [address] PCP - General Family Medicine 08/25/18 documented as of this encounter
--- OUTSIDE RECORDS SUMMARY | 2023-07-30 05:23 | External Medical Summary | Summary of Care ---
Author Name Unknown Organization [facility] Address [address] [place] [address] Phone [phone] Care Team Providers Care Commercial Fisherman Name Role Phone Eamon Felder DO Primary Care Provider [phone] Reason for Visit * Reason Comments Follow Up Encounter Details Date Type Department Care Team Description 01/31/2023 Office Visit Cardiology, [facility] [address] [place] [address] Russ Morley PA-C [address] [facility] [place] [address] Chronic atrial fibrillation (HCC)*; Chronic systolic congestive heart failure (HCC); Stage 3b chronic kidney disease (HCC); LBBB (left bundle branch block); Dyslipidemia, goal LDL below 100 Allergies Active Allergy Reactions Severity Noted Date Comments Dust 04/15/2011 Upper resp sx Other Allergy (See Comments) 10/23/2012 Perfume that contains kiah root causes nasal congestion documented as of this encounter (statuses as of 02/03/2023) Medications Medication Sig Dispensed Refills Start Date [...] (FLONASE) 50 MCG/ACT nasal spray Administer 1 [place] into nostril in the morning. 0 Active Ipratropium [place] 0.06 % Nasal Solution (Atrovent)Indicat ions:Periodic breathing instill 2 sprays into each nostril three times a day if needed for allergies 0 1 Active Mckinley 2 % External Pad (Erythromycin)Ind ications:Rosacea apply topically TO FACE DAILY FOR ROSACEA as directed by prescriber 60 Each 1 1 Active CPAP every night at bedtime. 0 Active Hyoscyamine Sulfate 0.125 MG Sublingual Tablet Sublingual (Levsin)Indicatio ns:Irritable bowel syndrome One pill by mouth or under the tongue every 4 hours as needed for abdominal pain 40 Tablet 4 2 Active Albuterol Sulfate HFA 108 (90 Base) MCG/ACT Inhalation Aerosol SolutionIndicatio ns:Bronchitis, complicated INHALE 2 PUFFS EVERY 4 HOURS NEEDED FOR COUGH OR WHEEZING 18 g 1 3 Active Eliquis 2.5 MG Oral Tablet (Apixaban)Indicat ions:Chronic atrial fibrillation (HCC) TAKE 1 TABLET BY MOUTH TWICE A DAY 60 Tablet 3 3 Active B-12 1000 MCG Oral Tablet [...] AT BEDTIME 90 Capsule 3 3 Active Melatonin 5 MG Oral Tablet Take 0.5 Tablets by mouth at bedtime. 90 Tablet 3 3 Active Pantoprazole Sodium 40 MG Oral Tablet Delayed Release (Protonix) Take 1 Tablet by mouth in the morning. 180 Tablet 3 3 Active Torsemide 10 MG Oral Tablet (Demadex)Indicati ons:Chronic systolic congestive heart failure (HCC) Take one tablet by mouth only as needed. 60 Tablet 3 3 Active Pantoprazole Sodium 40 MG Oral Tablet Delayed Release (Protonix) TAKE 1 TABLET BY MOUTH TWICE A DAY 30 MINUTES BEFORE MORNING AND EVENING MEALS 180 Tablet 3 3 02/01/20 23 Discontinued Torsemide 10 MG Oral Tablet (Demadex)Indicati ons:Chronic systolic congestive heart failure (HCC) One tablet by mouth every other day with an extra dose as needed for swelling 60 Tablet 3 3 02/01/20 23 Discontinued Melatonin 5 MG Oral Tablet Take 5 mg (1 pill) every night. 90 Tablet 3 3 02/01/20 23 Discontinued documented as of this encounter (statuses as of 02/03/2023) Active Problems Problem Noted Date Sacroiliitis 11/06/2022 [...] as of this encounter (statuses as of 02/03/2023) Resolved Problems Problem Noted Date Resolved Date [...] as of this encounter (statuses as of 02/03/2023) Immunizations Name Administration Dates Next Due COVID-19 mRNA, LNP-s, No Pre serve, 2-Dose Series ([employer]) 07/28/2021,11/16/2020,10/17/2020 Pneumococcal Conjugate Vacc, 13 Valent (Prevnar) [...] Sign Reading Time Taken Comments Blood Pressure 116/72 01/31/2023 2:03 PM EDT Pulse 88 01/31/2023 2:03 PM EDT Temperature - - Respiratory Rate 18 01/31/2023 2:03 PM EDT Oxygen Saturation - - Inhaled Oxygen Concentration - - Weight 110.7 kg (244 lb) 01/31/2023 2:03 PM EDT Height - - Body Mass Index 33.78 07/20/2021 9:48 AM EST documented in this encounter Progress Notes * Russ Morley PA-C - 01/31/2023 2:14 PM EDT History of Present Illness: Ricardo Gray is a very pleasant 82 year old male here today for cardiology follow-up evaluation. 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 No palpitations. No shortness of breath. No fluid retention. Weight stable. No syncope. No melena or hematochezia. Problem List: 1. Chronic atrial fibrillation 2. Chronic anticoagulation 3. Fixed apical thinning nuclear stress test 2011, likely normal variant 4. 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 Prior history of frequent PVCs, asymptomatic 6. Prior history of rate-related left bundle branch block 7. Sleep apnea, CPAP therapy. 8. History of vertigo 9. History of laparoscopic lysis of adhesions, closure of colostomy, colon resection 2011 10. GERD 11. Pernicious anemia 12. Depression 13. IBS 14. Enlarged prostate 15. History of diverticulitis 16. Chronic low back pain, sciatica. 17. Status post right knee arthroplasty on December 01, 2018 Patient Active Problem List Diagnosis Code Adjustment [...] G30.9, F02.80 HPTH (hyperparathyroidism) (HCC) E21.3 Past Medical History: Diagnosis Date Abnormal results [...] 11/22/2011 Irregular heart beat Irritable bowel syndrome intermediate (current) use of anticoagulants 11/22/2011 Near syncope 05/27/2011 NONALLERGIC RHINITIS 02/14/2010 Pernicious anemia 08/05/2008 Personal history of colonic polyps 04/21/2010 Personal history of colonic polyps 11/08/14 11/08/14: adenoma of the ascending colon, repeat 5 years Polyp of nasal sinus Pure hypercholesterolemia 10/12/2013 Rosacea 05/28/2007 Short-segment Jha's esophagus 04/01/13 UPPER GI ENDOSCOPY DIAGNOSTIC performed by Shamir Lee MD at [facility], SHORT SEGMENT BARRETTS, REPEAT EGD IN 3 [...] performed by Shamir Lee MD at [facility] COLONOSCOPY, DIAGNOSTIC (RECTUM) 04/05/2020 diverticulosis / COLONOSCOPY FLEXIBLE PROXIMAL DIAGNOSTIC performed by Shamir Lee MD at [facility] EGD, FLEXIBLE, DIAGNOSTIC 04/01/2013 UPPER GI ENDOSCOPY DIAGNOSTIC performed by Shamir Lee MD at [facility], SHORT SEGMENT BARRETTS, REPEAT EGD IN 3 YEARS EGD, FLEXIBLE, DIAGNOSTIC 05/01/2016 inflammation, repeat w/ colon recall/ESOPHAGOGASTRODUODENOSCOPY (EGD), FLEXIBLE, TRANSORAL, DIAGNOSTIC performed by Shamir Lee MD at [facility] EGD, FLEXIBLE, DIAGNOSTIC 04/05/2020 gastric polyp, Barretts w/ LGD, repeat 3 mo / ESOPHAGOGASTRODUODENOSCOPY (EGD), FLEXIBLE, TRANSORAL, DIAGNOSTIC performed by Shamir Lee MD at [facility] EGD, FLEXIBLE, DIAGNOSTIC 07/24/2021 acid reflux, repeat 2 yrs / ESOPHAGOGASTRODUODENOSCOPY (EGD), FLEXIBLE, TRANSORAL, DIAGNOSTIC performed by Ravi Mendoza MD at [facility] EGD, FLEXIBLE, DIAGNOSTIC 01/16/2022 acid reflux, [...] INJECTION SPINE LUMBAR OR SACRAL performed by Ransom Stuart Faustin, DO at OR [facility] MISCELLANEOUS ORDER ([facility] ONLY) 10/09/2001 carpal tunnel surgery right hand REMOVAL OF APPENDIX Appendectomy REMOVAL OF TONSILS, UNDER AGE 12 SACROILIAC JOINT INJECT W/GUIDANCE 02/06/2022 INJECTION SACROILIAC JOINT performed by Master Stuart Faustin, DO at OR [facility] SACROILIAC JOINT INJECT W/GUIDANCE 12/25/2022 INJECTION SACROILIAC JOINT performed by Master Stuart Okeefes, DO at OR [facility] SINUS SURGERY PROCEDURE NEC 09/08/2007 ? R endoscopic procedure/polypectomy - Dr. 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 Substance and Sexual Activity Alcohol use: No Drug use: No Sexual activity: Not Currently Partners: Female Comment: Other Topics Concern Not on file Social History Narrative [facility] INFORMATION ENVIRONMENTAL HISTORY: Type of Home: One Story Type of Heating System: Oil and Hot water: Air Conditioning: Yes Living room Basement: Finished, Carpeted rooms, Dehumidifier and No evidence mold, mildew Home have cockroaches: No Irritants in the home: None Patient's bedroom location: Floor: first Type of matthew: Hardwood Beds: Number: 1 Type of beds: Mattress Pillows: Number: 1 Type of pillows: Feather (down) Bedroom contains: Plants Pets: 2 cat(s) Lives on a farm: No Adhesive Primer of a [employer]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 Review of patient's allergies indicates: Allergen Reactions [...] (FLONASE) 50 MCG/ACT nasal spray Administer 1 [place] into nostril in the morning. Ipratropium [place] 0.06 % Nasal Solution (Atrovent) instill 2 sprays into each nostril three times a day if needed for allergies Mckinley 2 % External Pad (Erythromycin) apply topically TO FACE DAILY FOR ROSACEA as directed by prescriber 60 Each 1 CPAP every night at bedtime. Hyoscyamine Sulfate 0.125 MG Sublingual Tablet Sublingual (Levsin) One pill by mouth or under the tongue every 4 hours as needed for abdominal pain 40 Tablet 4 Albuterol Sulfate HFA 108 (90 Base) MCG/ACT Inhalation Aerosol Solution INHALE 2 PUFFS EVERY 4 HOURS NEEDED FOR COUGH OR WHEEZING 18 g 1 Eliquis 2.5 MG Oral Tablet (Apixaban) TAKE 1 TABLET BY MOUTH TWICE A DAY 60 Tablet 3 B-12 1000 MCG Oral Tablet Take 1,000 [...] 1 TABLET EVERY MORNING 90 Tablet 3 Allopurinol 100 MG Oral Tablet (Zyloprim) TAKE BY MOUTH 2 TABLETS IN THE MORNING. 180 Tablet 3 Tamsulosin HCl 0.4 MG Oral Capsule (Flomax) TAKE 1 CAPSULE AT BEDTIME 90 Capsule 3 Melatonin 5 MG Oral Tablet Take 0.5 Tablets by mouth at bedtime. 90 Tablet 3 Pantoprazole Sodium 40 MG Oral Tablet Delayed Release (Protonix) Take 1 Tablet by mouth in the morning. 180 Tablet 3 Torsemide 10 MG Oral Tablet (Demadex) Take one tablet by mouth only as needed. 60 Tablet 3 No current facility-administered medications for this visit. OBJECTIVE/PHYSICAL EXAMINATION: BP 116/72 | Pulse 88 | Resp 18 | Wt 110.7 kg (244 lb) | BMI 33.78 kg/m | BSA 2.36 m General: A&Ox3. NAD. HEENT: Normocephalic. Atraumatic. PER. Conjunctiva pink, sclera clear. No carotid bruits. Normal JVP. Heart: Distant heart sounds. Irregularly irregular at 76 bpm. PMI is nondisplaced. Lungs: Right basilar rales. Abdomen: Umbilical hernia. +BS. Soft. Nontender. No masses or organomegaly. Extremities: No edema. Knee high compression stocking. No clubbing. No cyanosis. Limited neurological examination is without focal deficits. Pulses: radial=2/4, posterior tibial=1/4. Data: January 14, 2018 TTE Interpretation Summary (as per Dr. Benjamin): The rhythm is atrial fibrillation. The qualitative LV ejection fraction is 50-54% (normal). The septal motion is abnormal consistent withintrventricular conduction delay. The base and mid posterior wall is hypokinetic. The base inferiorwall is hypokinetic. The remaining left ventricular wall segments are borderline hypokinetic. The left atrium is mildly enlarged (35-41 ml/m^2). Mild aortic valve regurgitation is present. Mild tricuspid regurgitation is present. The estimated pulmonary artery systolic pressure is 38mm Hg. Comparedto last available study changes are noted as follows: posterior/inferior wall motion abnormality now present January 26, 2018 Lexiscan Interpretation Summary (as per Dr. Rowan): Abnormal pharmacologic Cardiolite stress test demonstrating a small inferior apical infarct. Negative pharmacologic stress EKG. Rhythm is atrial fibrillation with PVCs versus aberrant conduction. Moderately dilated left ventricle with hypokinesis involving the inferior apical segment. Low normal poststress ejection fraction, EF: 50%. Normal TID ratio. May 12, 2020 TTE Interpretation Summary ([facility], Dr. Romero): Technically difficult. Rate controlled atrial fibrillation present during the study. Normal LV wall thickness. Abnormal septal motion, consistent with conduction abnormality, chronic left bundle branch block. Otherwise, mild diffuseLV hypokinesis. Mildly reduced LV systolic function. EF 40 to 45%. Severely dilated left atrium. Trace mitral regurgitation. Mild aortic regurgitation. When compared to the prior study from January 14, 2018, EF declined (previously 50 to 54%). November 27, 2020 TTE Interpretation Summary (as per Dr. Benjamin): The rhythm during the transthoracic echo examination was atrial fibrillation with controlled ventriculr response. The qualitative LV ejection fraction is 45-49% (mildly reduced). There is mild diffuse left ventricular hypokinesis. Theleft atrium is moderately enlarged (42-48 ml/m^2). Mild mitral regurgitation is present. Mild aortic valve regurgitation is present. Mild tricuspid regurgitation is present. The estimated pulmonary artery systolic pressure is 44mm Hg. Compared to last available study changes are noted as follows: Mild left ventricular systolic dysfunction now present, the estimated systolic pulmonary pressure hasincreased. December 26, 2022 TTE Interpretation Summary (as per Dr. Messer): The left ventricular cavity size is normal. The LV wall thickness is normal. The qualitative LV ejection fraction is 50-54% (normal). Theright ventricular systolic function is normal as assessed by tricuspid annular plane systolic excursion (TAPSE) (normal >1.7 cm). The left atrium is moderately enlarged (42- 48 ml/m^2). The right atrial size is normal. The left ventricular diastolic function is abnormal. Mild aortic valve regurgitation is present. Mild mitral regurgitation is present. Mild tricuspid regurgitation is present. There is mild pulmonary regurgitation. ASSESSMENT: 1. Systolic congestive heart failure. 1. Chronic left bundle branch block. 2. Volume status: Mild hypovolemia. 2. Chronic atrial fibrillation. Rate controlled. Anticoagulated with renally dosed Eliquis. 3. Asymptomatic ventricular ectopy. 4. Fixed apical thinning nuclear stress test 2011 and 01/2018. Asymptomatic. 5. 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 Dyslipidemia. RECOMMENDATIONS/PLAN: Decrease torsemide from 10 mg 3 days per week to only as needed. Continue allother medications as prescribed. Routine cardiology follow- up with Dr. Romero, or as needed with the undersigned in the interim. Russ Morley PA-C Department of Cardiology documented in this encounter Nursing Notes * Eve Ellis LPN - 01/31/2023 2:03 PM EDT Examination Room: 2 Name: Ricardo Gray Date of : (1940) [...] Encounters Date Type Specialty Care Team Description 02/13/2023 Hospital Encounter Surgery Fabián Caballero, DO [address] [place] [id number] 02/13/2023 Surgery Surgery Fabián Caballero, DO [address] [place] [phone] INJECTION SPINE LUMBAR OR SACRAL 02/25/2023 Office Visit Nephrology Gi Castillo PA-C [address] [place] [id number] 05/07/2023 Office Visit Neurology Jemima Junior PA-C [address] [place] [address] 05/07/2023 Office Visit Sleep Disorders Herlinda Renee CRNP [address] [place] [address] 05/26/2023 Office Visit Family Medicine Eamon Felder, DO [address] [place] [address] 08/11/2023 Office Visit Cardiology Russ Morley PA-C [address] [place] [phone] Scheduled Procedures Name Priority Associated Diagnoses Date/Ti me INJECTION SPINE LUMBAR OR SACRAL Lumbar radiculopathy 02/13/2023 1:45 PM EDT ESOPHAGOGASTRODUODENOSCOPY ( EGD), FLEXIBLE, TRANSORAL, DIAGNOSTIC Recall Acid reflux Health Maintenance Due Date Last Done Comments Zoster Vaccines (2 of 3) 09/07/2012 07/13/2012 COVID-19 Vaccine (4 - Booster for Pfizer series) 09/22/2021 07/28/2021, 11/16/2020, 10/17/2020 Depression Screening, Annual for Pts 12 and Over 10/30/2021 10/30/2020 Albumin/Creatinine Ratio 10/19/2022 022, 09/10/2019, 11/06/2015, Additional history exists GFR 05/09/2023 11/06/2022, 06/08, 10/17/2021, Additional history exists CKD HGB USE SMARTSET 58137 06/18/202306/18, 10/17/2021, 10/17/2021, Additional history exists CKD PHOS USE SMARTSET 28931 06/18/202306/08, 08/17/2021, 03/14/2020, Additional history exists DTaP,Tdap,and [...] encounter Visit Diagnoses Diagnosis Chronic atrial fibrillation (HCC)- Primary Atrial fibrillation Chronic systolic congestive heart failure (HCC) Chronic systolic heart failure Stage 3b chronic kidney disease (HCC) LBBB (left bundle branch block) Other left bundle branch block Dyslipidemia, goal LDL below 100 Other and unspecified hyperlipidemia Lumbar radiculopathy Thoracic or lumbosacral neuritis or radiculitis, unspecified documented in this encounter Advance Directives Latest Code Status on File Code Status Date Activated Date Inactivated Comments Full Code 07/07/2020 12:46 AM 07/12/2020 5:11 PM Thi s order reflects the patients wishes and were consensually agreed upon. Care Teams Commercial Fisherman Relationship Specialty Start Date End Date Eamon Felder, DO [address] [facility] [place] [address] PCP - General Family Medicine 08/25/18 documented as of this encounter"
--- OUTSIDE RECORDS SUMMARY | 2023-07-30 05:23 | External Medical Summary | Summary of Care ---
Author Name Unknown Organization [facility] Address [address] [place] [address] Phone [phone] Care Team Providers Care Assistant Associate Full Professor Name Role Phone Bradford Eamon Clark BUSTAMANTE Primary Care Provider [phone] Reason for Visit * Reason Comments Chronic Kidney Disease (CKD) Encounter Details Date Type Department Care Team Description 02/25/2023 Office Visit Nephrology, Kenna Orozco [address] [place] [address] ZemaitisGi PA-C [address] [place] [address] Stage 3b chronic kidney disease (HCC)*; HTN, goal below 130/80; HPTH (hyperparathyroidism) ([facility]) Allergies Active Allergy Reactions Severity Noted Date Comments Dust 04/15/2011 Upper resp sx Other Allergy (See Comments) 10/23/2012 Perfume that contains kiah root causes nasal congestion documented as of this encounter (statuses as of 02/25/2023) Medications Medication Sig Dispensed Refills Start Date End Date Status Vardenafil HCl (LEVITRA) 20 MG TabletIndications: Impotence of organic origin Take 1 Tab by mouth daily as needed for Erectile Dysfunction. 1 hour prior to intercourse, no more than 1 dose per day. 10 Tab 5 04/24/2018 Suspended Additional Information Clindamycin Phosphate 1 % SWABIndications:Ro sacea Apply to face daily as needed 60 Each 1 08/19/2018 Suspended Additional Information fluticasone (FLONASE) 50 MCG/ACT nasal spray Administer 1 [place] into nostril in the morning. 0 Suspended Ipratropium [place] 0.06 % Nasal Solution (Atrovent)Indicati ons:Periodic breathing instill 2 sprays into each nostril three times a day if needed for allergies 0 10/24/2020 Suspended [place] 2 % External Pad (Erythromycin)Jackie cations:Rosacea apply topically TO FACE DAILY FOR ROSACEA as directed by prescriber 60 Each 1 03/26/2021 Suspended Additional Information CPAP every night at bedtime. 0 Suspended Hyoscyamine Sulfate 0.125 MG Sublingual Tablet Sublingual (Levsin)Indication s:Irritable bowel syndrome One pill by mouth or under the tongue every 4 hours as needed for abdominal pain 40 Tablet 4 02/05/2022 Suspended Additional Information Albuterol Sulfate HFA 108 (90 Base) MCG/ACT Inhalation Aerosol SolutionIndication s:Bronchitis, complicated INHALE 2 PUFFS EVERY 4 HOURS NEEDED FOR COUGH OR WHEEZING 18 g 1 10/27/2022 Suspended Additional Information Eliquis 2.5 MG Oral Tablet (Apixaban)Indicati ons:Chronic atrial fibrillation (HCC) TAKE 1 TABLET BY MOUTH TWICE A DAY 60 Tablet 3 11/28/2022 Suspended Additional Information B-12 1000 MCG Oral Tablet Take 1,000 mcg by mouth daily. 0 Suspended Venlafaxine HCl ER 150 MG Oral Capsule Extended Release 24 Hour (Effexor XR) Take 300 mg (2 pills) every day 180 Capsule 1 12/23/2022 Suspended Additional Information Memantine HCl 10 MG Oral Tablet (Namenda) Take 10 mg (1 pill) twice a day 180 Tablet 1 12/24/2022 Suspended Additional Information Patient taking differently: Take 10 mg (1 pill) once per day, Reported on 01/31/2023 LORazepam 0.5 MG Oral Tablet (Ativan) Take 0.5 mg (1 pill) up to 4 times a day as needed for anxiety 120 Tablet 2 12/24/2022 Suspended Additional Information Metoprolol Succinate ER 25 MG Oral Tablet Extended Release 24 Hour (toPROL XL)Indications:Chr onic atrial fibrillation (HCC) TAKE 1 TABLET EVERY MORNING 90 Tablet 3 12/26/2022 Suspended Additional Information Allopurinol 100 MG Oral Tablet (Zyloprim)Indicati ons:Acute sinusitis TAKE BY MOUTH 2 TABLETS IN THE MORNING. 180 Tablet 3 01/06/2023 Suspended Additional Information Tamsulosin HCl 0.4 MG Oral Capsule (Flomax)Indication s:BPH with obstruction/lower urinary tract symptoms TAKE 1 CAPSULE AT BEDTIME 90 Capsule 3 01/24/2023 Suspended Additional Information Pantoprazole Sodium 40 MG Oral Tablet Delayed Release (Protonix) Take 1 Tablet by mouth in the morning. 180 Tablet 3 01/31/2023 Suspended Torsemide 10 MG Oral Tablet (Demadex)Indicatio ns:Chronic systolic congestive heart failure (HCC) Take one tablet by mouth only as needed. 60 Tablet 3 01/31/2023 Suspended Doxycycline Hyclate 50 MG Oral Tablet Take 50 mg by mouth in the morning. 0 Suspended documented as of this encounter (statuses as of 02/25/2023) Active Problems Problem Noted Date Sacroiliitis 11/06/2022 [...] as of this encounter (statuses as of 02/25/2023) Resolved Problems Problem Noted Date Resolved Date [...] as of this encounter (statuses as of 02/25/2023) Immunizations Name Administration Dates Next Due COVID-19 mRNA, LNP-s, No Pre serve, 2-Dose Series ([employer]) 07/28/2021,11/16/2020,10/17/2020 Pneumococcal Conjugate Vacc, 13 Valent (Prevnar) [...] Sign Reading Time Taken Comments Blood Pressure 118/69 02/25/2023 1:14 PM EDT Pulse 78 02/25/2023 1:14 PM EDT Temperature 36.8 C (98.3 F) 02/25/2023 1:14 PM ED T Respiratory Rate 18 02/25/2023 1:14 PM EDT Oxygen Saturation 99% 02/25/2023 1:14 PM EDT Inhaled Oxygen Concentration - - Weight 111.1 kg (245 lb) 02/25/2023 1:14 PM EDT Height - - Body Mass Index 33.92 07/20/2021 9:48 AM EST documented in this encounter Progress Notes * Gi Castillo PA-C - 02/25/2023 1:10 PM EDT NEPHROLOGY CLINIC NOTE [place]rology, [facility] [address] [place] [address] Patient Name: Ricardo Gray Patient Active Problem List Diagnosis Code Adjustment [...] behavioral disturbance (HCC) G30.9, F02.80 HPTH (hyperparathyroidism) ([facility]) E21.3 BACKGROUND: 82 year old male presents for f/u of non proteinuric CKD 3b from. 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 Also chronic low back painw/ sciatica In the fall of 2019 he had 2 admissions to [facility] relatively close together, 1 for volume overload, and then another 1 for pancreatitis. also some psych admissions more recently. 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 Works at balance, core leg flexbility/strength. Back pain limits him from standing -- if stands 15-20 min has back pain and sits; this not breathing limits his physical activity usually though breathing can limit things on longer trips. Follows low Na diet. Goal is 32 oz daily fluid intake but he struggles w/ this and often overrides it- reports this is too low for him and at time his mouth feels dry Drinks at least :40-60 oz Home blood pressure checks:Yes NSAID use:Excedrin but notoften ; used alleve in past for back pain Herbals/supplements:No Today 02/25/23 Denies any recent hospitalizations, procedures or infections. Oct Cellulitis dx when in [place] - had to follow up with wound care locally for approx 2 month Reports still struggling with his fluid intake - feels some of his meds are drying him out - Was advised to reduce torsemide to as needed by Cardiology in January Patient reports drinking 74 oz of fluids yesterday but reports average of approximately 40 to 60 ozdaily. PCP had previously requested 32 oz REVIEW OF SYSTEMS General: No fatigue, Head: No significant headache Respiratory: +cough,No wheezing,+shortness of breath with exertion Cardiovascular:No chest pain, No palpitations, + light headed with movement, and No syncope Gastrointestinal: No nausea, vomiting, +diarrhea No blood in stools No abdominal pain Urinary: No dysuira, No hematuria No flank pain Musculoskeletal: + muscle/joint pains- back, ankles , + edema on occasion Skin: No itching All other systems were reviewed and were negative. No current outpatient medications on file. No current facility-administered medications for this visit. PHYSICAL EXAMINATION Last 4 BP Readings: BP Readings from Last 4 Encounters: 02/21/23 136/81 02/25/23 118/69 01/31/23 116/72 12/25/22 123/59 Last 3 Weights: Wt Readings from Last 3 Encounters: 02/25/23 111.1 kg (245 lb) 01/31/23 110.7 kg (244 lb) 11/22/22 111.4 kg (245 lb 8 oz) BP 118/69 (BP Site: Right Arm, BP Position: Sitting, BP Cuff Size: Large) | Pulse 78 | Temp 36.8 C (98.3 F) | Resp 18 | Wt 111.1 kg (245 lb) | SpO2 99% | BMI 33.92 kg/m | BSA 2.36 m Wt Readings from Last 1 Encounters: 02/25/23 111.1 kg (245 lb) General appearance: alert, no apparent distress. Ambulatory without assistance HEAD: Normocephalic, No masses, lesions, tenderness Respiratory: clear to auscultation, no rhonchi, no wheezes and no crackles Heart: regular rate and regular rhythm Abdomen: abdomen soft, non-tender and no CVA tenderness EXTREMITIES: No edema, No cyanosis or clubbing Skin: skin color, texture, turgor are normal NEURO: alert & oriented x 3 with fluent speech, no focal motor/sensory deficits No tremor Patient is a reliable historian of events LABS: Latest Reference Range & Units 01/30/21 10:35 07/26/21 11:29 08/17/21 12:17 10/17/21 15:47 06/18/22 11:22 11/06/22 15:39 Sodium 135 - 146 mmol/L 143 140 144 144 143 141 Potassium 3.5 - 5.1 mmol/L 3.9 4.0 3.7 3.9 4.0 3.8 Chloride 98 - 107 mmol/L 106 102 103 104 104 103 CO2 22 - 32 mmol/L 28 24 27 28 27 30 BUN 6 - 20 mg/dL 38 (H) 32 (H) 41 (H) 33 (H) 31 (H) 32 (H) Creatinine 0.6 - 1.2 mg/dL 1.9 (H) 1.7 (H) 1.8 (H) 1.8 (H) 1.6 (H) 1.6 (H) Estimated Glomerular Filtration Rate >=60 mL/min 32.8 (L) 38 (L) 34 (L) 38 (L) 44 (L) 44 (L) EGFR-OUTSIDE LAB >=60 25 (L) Cystatin C 0.52 - 1.16 mg/L 2.21 (H) Anion Gap 7 - 15 mmol/L 9 14 14 12 12 8 Glucose 70 - 120 mg/dL 86 88 72 86 106 101 Calcium 8.4 - 10.2 mg/dL 9.5 9.2 9.2 9.1 9.1 9.0 Magnesium 1.5 - 2.6 mg/dL 1.9 2.1 Phosphorus 2.5 - 4.8 mg/dL 3.6 3.6 (H): Data is abnormally high (L): Data is abnormally low Latest Reference Range & Units 09/10/19 14:54 09/10/19 14:55 01/04/21 14:59 01/30/21 10:46 10/19/21 15:40 06/18/22 12:37 Albumin / Creatinine Ratio, Urine <30 mg/g Creat 25 <16 ALBUMIN / CREATININE RATIO, URINE Rpt Rpt Rpt Rpt Protein/ Creatinine Ratio, Urine <150 mg/g 98 PROTEIN/CREAT RATIO <150 mg/g 118 Rpt: View report in Results Review for more information IMAGING: EXAM US RENAL-01/16/2021 12:17 pm HISTORY Renal dysfunction relatively stable over the last 2 months, gradually trended down over the last [address] scan of the abdomen and pelvis, [facility] on 05/17/2020 revealed cortical atrophy, w/o hydronephrosis, 3.5 cm cyst in the interpolar right kidney TECHNIQUE Real time sonographic imaging. COMPARISON No comparisons FINDINGS RIGHT KIDNEY: 10.5 cmx5.3 cmx6.0 cm. Normal size and echogenicity. No hydronephrosis, shadowing calculi, or mass. 29 x 34 x 29 mm upper to midpole simple cyst is present. LEFT KIDNEY: 11.9 cmx5.6 cmx5.2 cm. Normal size and echogenicity. No hydronephrosis, shadowing calculi, or mass. BLADDER: Mild bladder wall thickening, possibly chronic bladder outlet obstruction. Please correlate clinically. No focal bladder wall mass or calculus. Bilateral ureteral jets are demonstrated. Prostate is enlarged, 45 x 49 x 60 mm for estimated volume of 69 mL. AORTA: No distal abdominal aortic aneurysm. Proximal and mid aorta are obscured. IMPRESSION IMPRESSION Right renal simple cyst, 29 x 34 x 29 mm. Enlarged prostate. Mild diffuse bladder wall thickening, possibly due to chronic bladder outlet obstruction. ASSESSMENT/PLAN: The patient's most recent labs (from 3 months ago) were reviewed and the assessment/plan is as follows: Stable or slightly improved CKD 3B with acceptable chemistries and probably acceptable volume status- will need to monitor as toursemide prn use now. Low ESRD risk Stage 3b chronic kidney disease (HCC) (Primary) - BASIC METABOLIC PANEL; Future; Expected date: 05/09/2023 - URINALYSIS WITH MICROSCOPIC EXAM; Future; Expected date: 05/09/2023 - ALBUMIN / CREATININE RATIO, URINE; Future; Expected date: 05/09/2023 - PTH; Future; Expected date: 05/09/2023 - PHOSPHORUS; Future; Expected date: 05/09/2023 HTN, goal below 130/80 At goal -not currently on INDIRA-inhibitor or ARB in would not introduce with current blood pressures watch for opportunity - BASIC METABOLIC PANEL; Future; Expected date: 05/09/2023 HPTH (hyperparathyroidism) (HCC) - PTH; Future; Expected date: 05/09/2023 - 25-HYDROXY VITAMIN D; Future; Expected date: 05/09/2023 Labs placed for completion in May No changes to medications Monitor fluid intake closely and monitor changes in volume status Continue low-sodium diet Avoid medicines like aleve, advil, ibuprofen, aspirin more than 81 mg daily and other NSAIDS which are not good for kidney patients. Take only tylenol (acetaminophen) up to 2000 mg daily as needed for pain or as directed by your primary care provider. Reviewed previous status of kidney function and goals of care. All questions were answered. Follow-up: Return in about 6 months (around 08/27/2023). | Check-out note: With Mercedez Castillo PA-C Nephrology, [address] [place] [address] documented in this encounter Nursing Notes * Pia Cates RN - 02/25/2023 1:15 PM EDT Follow up visit today. present in room for visit. No recent illness or hospital stays. Denies any swelling. documented in this encounter Plan of Treatment Upcoming Encounters Date Type Specialty Care Team Description 03/06/2023 Hospital Encounter Surgery Fabián Caballero DO [address] [place] [address] 03/06/2023 Surgery Surgery Fabián Caballero DO [address] [place] [address] INJECTION SPINE LUMBAR OR SACRAL 05/07/2023 Office Visit Neurology Jemima Junior PA-C [address] [place] [address] 05/07/2023 Office Visit Sleep Disorders Herlinda Renee CRNP [address] [place] [address] 05/26/2023 Office Visit Family Medicine Eamon Felder DO [address] [place] [address] 08/11/2023 Office Visit Cardiology Russ Morley PA-C [address] [place] [address] 09/18/2023 Office Visit Nephrology Gi Castillo PA-C [address] [place] [address] Scheduled Orders Name Type Priority Associated Diagnoses Orde r Schedule BASIC METABOLIC PANEL Lab Routine Stage 3b chronic kidney disease (HCC) HTN, goal below 130/80 Expected: 05/09/2023, Expires: 02/26/2024 URINALYSIS WITH MICROSCOPIC EXAM Lab Routine Stage 3b chronic kidney disease (HCC) Expected: 05/09/2023, Expires: 02/26/2024 ALBUMIN / CREATININE RATIO, URINE Lab Routine Stage 3b chronic kidney disease (HCC) Expected: 05/09/2023, Expires: 02/26/2024 PTH Lab Routine Stage 3b chronic kidney disease (HCC) HPTH (hyperparathyroidism) (HCC) Expected: 05/09/2023, Expires: 02/26/2024 25-HYDROXY VITAMIN D Lab Routine HPTH (hyperparathyroidism) (HCC) Expected: 05/09/2023, Expires: 02/26/2024 PHOSPHORUS Lab Routine Stage 3b chronic kidney disease (HCC) Expected: 05/09/2023, Expires: 02/26/2024 Scheduled Procedures Name Priority Associated Diagnoses Date/Ti me INJECTION SPINE LUMBAR OR SACRAL Lumbar radiculopathy 03/06/2023 8:25 AM EDT ESOPHAGOGASTRODUODENOSCOPY ( EGD), FLEXIBLE, TRANSORAL, DIAGNOSTIC Recall Acid reflux Health Maintenance Due Date Last Done Comments Zoster Vaccines (2 of 3) 09/07/2012 07/13/2012 COVID-19 Vaccine (4 - Pfizer series) 09/22/2021 07/28/2021, 11/16/2020, 10/17/2020 Depression Screening, Annual for Pts 12 and Over 10/30/2021 10/30/2020 GFR 05/09/2023 11/06/2022, 06/08, 10/17/2021, Additional history exists Albumin/Creatinine Ratio 06/18/2023 022, 10/19/2021, 01/04/2021, Additional history exists CKD HGB USE SMARTSET 23968 06/18/202306/18, 10/17/2021, 10/17/2021, Additional history exists CKD PHOS USE SMARTSET 04038 06/18/202306/08, 08/17/2021, 03/14/2020, Additional history exists DTaP,Tdap,and [...] as of this encounter Visit Diagnoses Diagnosis Stage 3b chronic kidney disease (HCC)- Primary HTN, goal below 130/80 Unspecified essential hypertension HPTH (hyperparathyroidism) (HCC) Hyperparathyroidism, unspecified Lumbar radiculopathy Thoracic or lumbosacral neuritis or radiculitis, unspecified documented in this encounter Advance Directives Latest Code Status on File Code Status Date Activated Date Inactivated Comments Full Code 07/07/2020 12:46 AM 07/12/2020 5:11 PM Thi s order reflects the patients wishes and were consensually agreed upon. Care Teams Assistant Associate Full Professor Relationship Specialty Start Date End Date Eamon Felder, DO [address] [place] [address] PCP - General Family Medicine 08/25/18 documented as of this encounter"
--- OUTSIDE RECORDS SUMMARY | 2023-07-30 05:23 | External Medical Summary | Summary of Care ---
Author Name Unknown Organization [facility] Address [address] [place] [address] Phone [phone] Care Team Providers Care Summer Associate Name Role Phone Ale Cox DO Primary Care Provider [phone] Reason for Visit * Reason Onset Date Comments Medication Refill 03/02/2023 Encounter Details Date Type Department Care Team Description 03/02/2023 Refill Family Practice [facility] [place] [address] [facility] [place] [address] Ale Cox DO 200 [place] [address] Irritable bowel syndrome Allergies Active Allergy Reactions Severity Noted Date Comments Dust 04/15/2011 Upper resp sx Other Allergy (See Comments) 10/23/2012 Perfume that contains kiah root causes nasal congestion documented as of this encounter (statuses as of 03/03/2023) Medications Medication Sig Dispensed Refills Start Date [...] (FLONASE) 50 MCG/ACT nasal spray Administer 1 [place] into nostril in the morning. 0 Active Ipratropium [place] 0.06 % Nasal Solution (Atrovent)Indicat ions:Periodic breathing [...] 10/27/2022 Active Eliquis 2.5 MG Oral Tablet (Apixaban)Indicat [...] abdominal pain 40 Tablet 4 03/03/2023 Active Hyoscyamine Sulfate 0.125 MG Sublingual Tablet Sublingual (Levsin)Indicatio ns:Irritable bowel syndrome One pill by mouth or under the tongue every 4 hours as needed for abdominal pain 40 Tablet 4 02/05/2022 3 Discontinue d(Refill) documented as of this encounter (statuses as of 03/03/2023) Active Problems Problem Noted Date Sacroiliitis 11/06/2022 [...] as of this encounter (statuses as of 03/03/2023) Resolved Problems Problem Noted Date Resolved Date [...] as of this encounter (statuses as of 03/03/2023) Immunizations Name Administration Dates Next Due COVID-19 mRNA, LNP-s, No Pre serve, 2-Dose Series ([employer] 07/28/2021,11/16/2020,10/17/2020 Pneumococcal Conjugate Vacc, 13 Valent (Prevnar) [...] Telephone Encounter - Ale Cox DO - 03/03/2023 8:59 AM EDTSigned Prescriptions: Disp Refills Hyoscyamine Sulfate 0.125 MG Sublingual Ta*40 Tab*4 Sig: One pill by mouth or under the tongue every 4 hours as needed for abdominal pain Authorizing Provider: ALE COX * Telephone Encounter - Lorrie Chacon LPN - 03/03/2023 8:56 AM EDTPending Prescriptions: Disp Refills Hyoscyamine Sulfate 0.125 MG Sublingual Ta*40 Tab*4 Sig: One pill by mouth or under the tongue every 4 hours as needed for abdominal pain * Telephone Encounter - Lorrie Chacon LPN - 03/03/2023 8:54 AM EDT Pending Prescriptions: Disp Refills Hyoscyamine Sulfate 0.125 MG Sublingual T*40 Tab*4 Sig: One pill by mouth or under the tongue every 4 hours as needed for abdominal pain Last Visit: 11/06/2022 (in office), 11/12/2022 (telemedicine) Next Visit: 05/26/2023 Last date the medication was ordered: 02/05/22 Patient Active Problem List Diagnosis Code Adjustment [...] * Telephone Encounter - Darrin Kiran - 03/02/2023 3:49 PM EDTPending Prescriptions: Disp Refills Hyoscyamine Sulfate 0.125 MG Sublingual Ta*40 Tab*4 Sig: One pill by mouth or under the tongue every 4 hours as needed for abdominal pain documented in this encounter Plan of Treatment Upcoming Encounters Date Type Specialty Care Team Description 03/06/2023 Hospital Encounter Surgery Fabián Caballero, [address] [place] [address] 03/06/2023 Surgery Surgery Fabián Caballero, [address] [place] [address] INJECTION SPINE LUMBAR OR SACRAL 05/07/2023 Office Visit Neurology Jemima Junior PA-C [address] [place] [address] 05/07/2023 Office Visit Sleep Disorders Herlinda Renee CRNP [address] [place] [address] 05/26/2023 Office Visit Family Medicine Ale Cox, DO [address] [place] [address] 08/11/2023 Office Visit Cardiology Russ Morley PA-C [address] [place] [address] 09/18/2023 Office Visit Nephrology Gi Castillo PA-C [address] [place] [address] Scheduled Procedures Name Priority Associated Diagnoses Date/Ti [...] Additional history exists CKD HGB USE SMARTSET 91515 06/18/202306/18, 10/17/2021, 10/17/2021, Additional history exists CKD PHOS USE SMARTSET 34713 06/18/202306/08, 08/17/2021, 03/14/2020, Additional history exists DTaP,Tdap,and [...] encounter Visit Diagnoses Diagnosis Irritable bowel syndrome Lumbar radiculopathy Thoracic or lumbosacral neuritis or radiculitis, unspecified documented in this encounter Advance Directives Latest Code Status on File Code Status Date Activated Date Inactivated Comments Full Code 07/07/2020 12:46 AM 07/12/2020 5:11 PM Thi s order reflects the patients wishes and were consensually agreed upon. Care Teams Summer Associate Relationship Specialty Start Date End Date Ale Cox, DO [address] [place] [address] PCP - General Family Medicine 08/25/18 documented as of this encounter
[2023-07-30] MEDS ORDERED: SODIUM CHLORIDE 0.9% 1,000 ML IV SCH (05:30)
--- NOTE | 2023-07-30 05:36 | Emergency Department Note ---
Impression & Plan Near syncope, Lightheadedness ED Provider Note NAME: PAVEL SEGURA AGE: 82 SEX: Male INFORMANT: Patient ED PROVIDER(S): Sj Zuniga MD CHIEF COMPLAINT: Near syncope and lightheadedness PLAN: Disposition: Admitted Outpatient prescription management: none Referral: None MEDICAL DECISION MAKING: Patient presents with complaints of lightheadedness and near syncope. He denied any room spinning like true vertigo type symptoms. A workup was initiated. Patient has some peripheral edema on physical examination but no focal neurologic findings. Orthostatic testing ordered. CT and CT angiography ordered. Patient was gently hydrated. Patient requested drug screening as he was concerned that he was being poisoned. UDS is pending at this time. Patient has an unremarkable CT and CT angiography of the head neck for any acute findings. Orthostatic testing is negative. Etiology of the patient's symptoms may be multifactorial however he does not feel safe going home at this point. Consultation was made with the [facility] service. Patient was evaluated in the ER for further management. Care/management discussed with: Discussed with the manager unit Level of care consideration(s): After review of the information above and other included data, I feel the patient requires escalation of care to admission Triage Nursing notes: reviewed and agree them. Vital Signs: reviewed and remarkable for mild hypertension Additional History obtained from: none Chronic Medical/Social Conditions affecting care: A-fib, anxiety, depression Prior/ Outside/ External records reviewed: Discharge summary from 05/30/2023 reviewed. Patient had medication management by psychiatry. Medicine did indicate the patient had concerns for safety at home as well, similar to his complaints here. Differential Diagnosis: Infection, dehydration, metabolic abnormality, hypo/hyperglycemia, electrolyte disturbance, anemia, hypoxia, cardiac sources, intracerebral event, toxicologic, neurologic, psychiatric, as well as other pathologies. Diagnostics, independently interpreted by me: ECG: Twelve-lead ECG performed reveals atrial fibrillation with PVCs at 71 bpm. Left axis deviation and nonspecific interventricular conduction block. Cardiac Monitoring: Cardiac monitoring ordered by me: The patient was placed on continuous cardiac monitoring and observed. It revealed atrial fibrillation at 77 bpm Medical decision rules: none Imaging studies: CT and CT angiography of the head and neck is negative for acute process. No stroke or bleed noted. Chest x-ray performed and shows mental ectasis in the right base. No pneumothorax or obvious infiltrate HPI: 82 year old Male arrives for evaluation of lightheadedness and near syncope. Patient at this is been going on for several days but seem to worsen this morning. He thinks that he may be going through psychiatric drug withdrawal but is also concerned that his partner may be poisoning him. The patient states he has had no room spinning sensations. He noted a brief headache but none now. The patient denies falling or suffering any trauma. He has some mild ankle swelling but that is baseline for him. He does note that his outpatient medications have been changed recently and he is concerned that this may be affecting. Pt denies LOC, current headache, fevers, chills, diaphoresis, visual changes, neck pain, chest pain, breathing difficulties, nausea, vomiting, abdominal pain, back pain, melena, hematochezia, urinary symptoms, numbness, focal weakness, lymphadenopathy, rash, or other complaints.. PAST MEDICAL HISTORY: See Below, atrial fibrillation PAST SURGICAL HISTORY: See Below, total knee replaced SOCIAL HISTORY: See Below, former smoker HOME MEDICATIONS: See Below ALLERGIES: See Below VITALS: See Below PHYSICAL EXAMINATION: GENERAL: Awake, alert, [id number], in no distress HENT: Normocephalic, atraumatic. Oropharynx unremarkable. EYES: Normal conjunctiva. Sclera non-icteric. PERRLA. EOMI NECK: Inspection normal. Non-tender. Supple. No nuchal rigidity. FROM. No masses. RESPIRATORY: Clear to auscultation. No wheezes. No rales. Normal respiratory effort. CARDIAC: Normal rate. Normal rhythm. No murmurs. No rubs. Extremities warm and well perfused. Pulses equal. No JVD. GI: Soft, non-distended. No tenderness to palpation. No rebound or guarding. No masses. RECTAL: Deferred. MUSCULOSKELETAL: Atraumatic. Chest examination reveals no tenderness. The back is symmetrical on inspection without obvious abnormality. There is no CVA tenderness to palpation. No joint edema. LOWER EXTREMITIES: Calves are equal size bilaterally and non-tender. No edema. No discoloration. NEURO: Normal sensorium. No sensory or motor deficits noted. No drift. Normal rapid alternating movements. Speech normal. SKIN: No rash or jaundice noted. PROCEDURES: none CRITICAL CARE: none OBSERVATION NOTE: none Past Med/Surg History Medical History 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 Admitted to [facility] on May 11, 2020 with acute on chronic dyspnea, orthopnea, PND, associated chest pressure. Diagnosed with acute decompensated systolic heart failure. Resting echocardiography revealed mild to moderate reduction in left ventricular systolic function, EF 40 to 45%, down from 50 to 54% in 2019. Troponin was elevated, flat, consistent with CHF, volume overload though patient notably has risk factors for ischemic heart disease. He was treated with IV furosemide, 40 mg twice per day, diuresing well, with significant subjective improvement. Patient discharged on May 13, 2020 on furosemide 40 mg/day. Anxiety and depression Asthma STABLE Atrial fibrillation asymptomatic - follows with Dr Romero. 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 Dementia without behavioral disturbance Depression with anxiety Diverticular disease DIVERTICULITIS S/P PERFORATION/COLON RESECTION (2005) Dyslipidemia Essential tremor GERD (gastroesophageal reflux disease) Hearing deficit BILATERAL AIDES HFrEF (heart failure with reduced ejection fraction) Hx of colonic polyp Hx of gout Hyperlipidemia Hypersomnolence disorder Hypertension Hypomagnesemia IBS (irritable bowel syndrome) LBBB (left bundle branch block) CHRONIC Lumbar spondylosis with myelopathy Major depressive disorder On anticoagulant therapy MYRON (obstructive sleep apnea) MYRON on CPAP Osteoarthritis Pancreatitis Readmitted to [facility] May 17, 2020 to May 19, 2020 with acute pancreatitis. Furosemide decreased to 20 mg/day on discharge. Pernicious anemia Rosacea Sciatica Sleep apnea CPAP Stage 3b chronic kidney disease Vertigo Vitamin D deficiency Surgical History History of appendectomy History of arthroplasty of right knee History of bowel resection DIVERTICULITIS S/P PERFORATION/COLON RESECTION (2005) History of cataract surgery RT History of colonoscopy 2019 History of colostomy reversal History of endoscopic sinus surgery Right side-Dr. Yuan History of esophagogastroduodenoscopy (EGD) 2019 History of tonsillectomy Family History Mother Family hx of colon cancer Family history of diabetes mellitus Social History Smoking Status: Former smoker Tobacco Type: Cigarettes packs per day: 0.5; Second Hand Exposure: No; Do You Dip or Chew Tobacco: No; Hx Alcohol Use: No Hx Substance Use: No Preferred Language: [place] Rican Communication Ability: Effective Visual Impairment: Limited Hearing Ability: Use of Hearing Aid It Engineer Required: No Beliefs That Will Affect Care: None marital status: unknown marital status details: Engaged Current Living Situation: Significant Other Current Living Situation Comment: Friend Laura Thomas helps with care How many Children do You have: 2 other: Brother Matthieu is medical power of assistant prosecuting attorney, Feels Safe at Home: No Childhood Exposure to Second-Hand Smoke: No Diet: ideal protein and low salt Diet Comment: Low fat Gender Identity: Male Assistive Devices: Cane and CPAP Allergies Allergies Allergy/AdvReac Type Severity Reaction Status Date / Time house dust AdvReac Mild Congested Verified 02/27/23 11:24 ORRIS ROOT AdvReac Mild RUNNY NOSE Uncoded 02/27/23 11:24 Home Meds Home Medications Medication Instructions Recorded Confirmed albuterol sulfate 90 mcg/actuation 2 puff inhalation Q4H PRN cough or 11/10/18 05/28/23 aerosol inhaler (ProAir HFA) wheezing allopurinol 100 mg tablet 200 mg PO QAM 11/10/18 05/28/23 (Zyloprim) apixaban 2.5 mg tablet (Eliquis) 2.5 mg PO BID 05/17/20 05/28/23 lorazepam 0.5 mg tablet 0.5 mg PO QID PRN Anxiety 07/06/20 05/28/23 hyoscyamine sulfate 0.125 mg tablet 0.125 mg PO Q4 PRN Abdominal Pain 11/05/22 05/28/23 tamsulosin 0.4 mg capsule 0.4 mg PO HS 11/05/22 05/28/23 torsemide 10 mg tablet 10 mg PO DAILY 11/05/22 05/28/23 vardenafil 20 mg tablet 20 mg PO DAILY PRN Erectile 11/05/22 05/28/23 Dysfunction cyanocobalamin (vitamin B-12) 1,000 mcg sublingual DAILY 04/07/23 05/28/23 1,000 mcg sublingual tablet fluticasone propionate 50 1 spray intranasal QAM 04/07/23 05/28/23 mcg/actuation nasal spray,suspension ipratropium bromide 42 mcg (0.06 2 spray intranasal TID PRN 04/07/23 05/28/23 %) nasal spray allergies pantoprazole 40 mg tablet,delayed 40 mg PO AMPM 04/07/23 05/28/23 release Previous Rx's Medication Instructions Recorded metoprolol succinate 25 mg 12.5 mg (1/2 x 25 mg) PO QAM #15 04/08/23 tablet,extended release 24 hr tabs (Toprol XL) aripiprazole 5 mg tablet (Abilify) 2.5 mg (1/2 x 5 mg) PO HS #30 tabs 05/30/23 venlafaxine 225 mg tablet,extended 225 mg PO DAILY #30 tabs 05/30/23 release 24 hr Results & Data (ED) Vital Signs Vital Signs - 24 hr 07/30/23 05:15 07/30/23 05:16 07/30/23 06:52 Temperature 36.5 C Temperature Source Oral Pulse Rate - Lying 67 Pulse Rate - Sitting 69 Pulse Rate - Standing 74 Pulse Rate 74 77 Pulse Rate [Apical] Respiratory Rate 18 Respiratory Effort / Characteristics Non-Labored Spontaneous Respiratory Depth Normal Blood Pressure - Lying 121/77 Blood Pressure - Sitting 128/76 Blood Pressure- Standing 137/85 Blood Pressure 145/82 H Blood Pressure [Left Arm] Blood Pressure Mean 103 Blood Pressure Mean [Left Arm] Blood Pressure Position [Left Arm] Pulse Oximetry 98 Oxygen Delivery Method Room Air Sepsis Recent Fever Within 48 Hours No Sepsis New/Unexplained Change in Mental Status No Sepsis Action Taken by Nursing No Action Required 07/30/23 07:27 Temperature Temperature Source Pulse Rate - Lying Pulse Rate - Sitting Pulse Rate - Standing Pulse Rate Pulse Rate [Apical] 68 Respiratory Rate 16 Respiratory Effort / Characteristics Respiratory Depth Normal Blood Pressure - Lying Blood Pressure - Sitting Blood Pressure- Standing Blood Pressure Blood Pressure [Left Arm] 125/82 Blood Pressure Mean Blood Pressure Mean [Left Arm] 96 Blood Pressure Position [Left Arm] Lying Pulse Oximetry 98 Oxygen Delivery Method Room Air Sepsis Recent Fever Within 48 Hours Sepsis New/Unexplained Change in Mental Status Sepsis Action Taken by Nursing Laboratory Data 07/30/23 05:36 07/30/23 05:39 Lab Results 07/30/23 07/30/23 07/30/23 Range/Units 05:36 05:39 06:04 WBC 5.82 (4.8-10.8) K/ul RBC 5.02 (4.70-6.10) M/uL Hgb 14.7 (14.0-18.0) g/dl Hct 46.3 (42.0-52.0) % MCV 92.2 (80.0-100.0) fL MCH 29.3 (25.0-34.0) pg MCHC 31.7 L (32.0-36.0) g/dL RDW Std Deviation 48.9 H (36.4-46.3) fL RDW Coeff of [place] 14.3 (11.5-14.5) % Plt Count 178 (130-400) K/uL MPV 10.0 (9.4-12.4) fL Immature Gran % (Auto) 0.5 % Neut % (Auto) 58.3 % Lymph % (Auto) 23.0 % [place] % (Auto) 10.5 % Eos % (Auto) 6.5 % Baso % (Auto) 1.2 % Neut # (Auto) 3.39 (1.40-6.50) K/uL Lymph # (Auto) 1.34 (1.20-3.40) K/uL [place] # (Auto) 0.61 H (0.11-0.59) K/uL Eos # (Auto) 0.38 (0.00-0.50) K/uL Baso # (Auto) 0.07 (0.00-0.20) K/uL Immature Gran # (Auto) 0.03 (0.01-0.20) K/uL PT 11.9 (9.0-12.0) Seconds INR 1.1 (0.9-1.1) APTT 28.8 (21.0-31.0) Seconds PTT Ratio 1.0 Sodium 142 (136-145) mmol/L Potassium 4.0 (3.5-5.1) mmol/L Chloride 108 H (98-107) mmol/L Carbon Dioxide 27 (21-32) mmol/L Anion Gap 7 (3-11) BUN 30 H (6-23) mg/dl Creatinine 1.37 (0.6-1.4) mg/dl Est Cr Clr Drug Dosing 56.5 ml/min Est GFR ( Amer) 56.1 ml/min Est GFR (Non-Af Amer) 48.4 ml/min BUN/Creatinine Ratio 21.9 H (10-20) Glucose 103 H (70-99(Fasting)) mg/dl POC Glucose 81 (70-99) mg/dl Calcium 9.1 (8.6-10.3) mg/dl Magnesium 1.8 (1.7-2.4) mg/dl Total Bilirubin 0.7 (0.2-1.0) mg/dl AST 24 (13-39) U/L ALT 14 (7-52) U/L Alkaline Phosphatase 90 (34-104) U/L Troponin I High Sens 42.8 H (0-20) pg/ml Total Protein 6.6 (6.0-8.3) gm/dl Albumin 3.7 (3.4-5.0) gm/dl Globulin 2.9 (2.5-4.0) gm/dl Albumin/Globulin Ratio 1.3 (0.9-2) Urine Color Yellow Urine Appearance Clear (Clear) Urine pH 5.0 (4.5-7.5) Ur Specific [place] 1.022 (1.000-1.030) Urine Protein Negative (Negative) Urine Glucose (UA) Negative (Negative) Urine Ketones Negative (Negative) Urine Blood Negative (Negative) Urine Nitrite Negative (Negative) Urine Bilirubin Negative (Negative) Urine Urobilinogen Negative (Negative) Ur Leukocyte Esterase Negative (Negative) Administered Medications Sodium Chloride (Nss) 1,000 mls @ 50 mls/hr IV .Q20H ALEKSANDRA Stop: 08/29/23 05:29 Last Admin: 07/30/23 05:56 Dose: 50 mls/hr Documented By: TJDayana Discontinued Medications Ioversol (Optiray 320 125ml) 115 ml IV ONCE ONE Stop: 07/30/23 06:48 Last Admin: 07/30/23 06:47 Dose: 115 ml Documented By: JAR Imaging Data Radiologist's Impression: Head CT 07/30/23 05:26 CT angio neck with con, CT angio head w con, CT head/brain wo con CLINICAL HISTORY: neuro deficit, acute stroke suspected TECHNIQUE: Contiguous axial CT images of the head were acquired from the base of the skull to the vertex without intravenous contrast administration. CT angiography of the head and neck was performed following intravenous administration of iodinated contrast. Coronal and sagittal MIPS were obtained from the axial data set and were submitted for review. Automated dose lowering techniques and/or adjustment according to patient size were utilized for this examination. All measurements were calculated based on NASCET criteria. CT DOSE: 1364.89 mGy.cm Comparison: Comparison is made to CT head 05/28/2023 FINDINGS: CT head: There is no acute intracranial hemorrhage or evidence of acute territorial infarction. No shift of the midline structures, mass effect, or extra-axial abnormalities are shown. Bilateral maxillary sinus thickening is seen. Prominent right thyroid nodules measuring up to 17 mm in diameter. CTA Neck: A 3 vessel aortic arch is shown. There is no significant atherosclerotic plaque in the aortic arch or the origins of the innominate, left common carotid, and left subclavian arteries. There are bilateral, left greater than right, aneurysmal enlargement of the carotid bulbs with mural thrombus versus noncalcified atherosclerotic disease, however no hemodynamically significant stenosis is seen. The left vertebral artery is dominant. CTA Head: The anterior and posterior cerebral circulations are patent. No hemodynamically significant stenosis, aneurysm, dissection, or arteriovenous malformation is shown. IMPRESSION: 1. No acute intracranial hemorrhage, evidence of acute territorial infarction, or other acute intracranial disease process. 2. No occlusion, hemodynamically significant stenosis, or dissection in the major cervical arteries. 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 3. No occlusion, hemodynamically significant stenosis, aneurysm, dissection, or arteriovenous malformation in the major intracranial arteries. Assessment of stenosis of the internal carotid arteries is based on NASCET criteria. ACT 112: Negative or not required by law. Electronically signed by: Jonnie Tadeo M.D. 07/30/2023 7:13 AM Head CTA 07/30/23 05:26 CT angio neck with con, CT angio head w con, CT head/brain wo con CLINICAL HISTORY: neuro deficit, acute stroke suspected TECHNIQUE: Contiguous axial CT images of the head were acquired from the base of the skull to the vertex without intravenous contrast administration. CT angiography of the head and neck was performed following intravenous administration of iodinated contrast. Coronal and sagittal MIPS were obtained from the axial data set and were submitted for review. Automated dose lowering techniques and/or adjustment according to patient size were utilized for this examination. All measurements were calculated based on NASCET criteria. CT DOSE: 1364.89 mGy.cm Comparison: Comparison is made to CT head 05/28/2023 FINDINGS: CT head: There is no acute intracranial hemorrhage or evidence of acute territorial infarction. No shift of the midline structures, mass effect, or extra-axial abnormalities are shown. Bilateral maxillary sinus thickening is seen. Prominent right thyroid nodules measuring up to 17 mm in diameter. CTA Neck: A 3 vessel aortic arch is shown. There is no significant atherosclerotic plaque in the aortic arch or the origins of the innominate, left common carotid, and left subclavian arteries. There are bilateral, left greater than right, aneurysmal enlargement of the carotid bulbs with mural thrombus versus noncalcified atherosclerotic disease, however no hemodynamically significant stenosis is seen. The left vertebral artery is dominant. CTA Head: The anterior and posterior cerebral circulations are patent. No hemodynamically significant stenosis, aneurysm, dissection, or arteriovenous malformation is shown. IMPRESSION: 1. No acute intracranial hemorrhage, evidence of acute territorial infarction, or other acute intracranial disease process. 2. No occlusion, hemodynamically significant stenosis, or dissection in the major cervical arteries. 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 3. No occlusion, hemodynamically significant stenosis, aneurysm, dissection, or arteriovenous malformation in the major intracranial arteries. Assessment of stenosis of the internal carotid arteries is based on NASCET criteria. ACT 112: Negative or not required by law. Electronically signed by: Jonnie Tadeo M.D. 07/30/2023 7:13 AM Neck CTA 07/30/23 05:26 CT angio neck with con, CT angio head w con, CT head/brain wo con CLINICAL HISTORY: neuro deficit, acute stroke suspected TECHNIQUE: Contiguous axial CT images of the head were acquired from the base of the skull to the vertex without intravenous contrast administration. CT angiography of the head and neck was performed following intravenous administration of iodinated contrast. Coronal and sagittal MIPS were obtained from the axial data set and were submitted for review. Automated dose lowering techniques and/or adjustment according to patient size were utilized for this examination. All measurements were calculated based on NASCET criteria. CT DOSE: 1364.89 mGy.cm Comparison: Comparison is made to CT head 05/28/2023 FINDINGS: CT head: There is no acute intracranial hemorrhage or evidence of acute territorial infarction. No shift of the midline structures, mass effect, or extra-axial abnormalities are shown. Bilateral maxillary sinus thickening is seen. Prominent right thyroid nodules measuring up to 17 mm in diameter. CTA Neck: A 3 vessel aortic arch is shown. There is no significant atherosclerotic plaque in the aortic arch or the origins of the innominate, left common carotid, and left subclavian arteries. There are bilateral, left greater than right, aneurysmal enlargement of the carotid bulbs with mural thrombus versus noncalcified atherosclerotic disease, however no hemodynamically significant stenosis is seen. The left vertebral artery is dominant. CTA Head: The anterior and posterior cerebral circulations are patent. No hemodynamically significant stenosis, aneurysm, dissection, or arteriovenous malformation is shown. IMPRESSION: 1. No acute intracranial hemorrhage, evidence of acute territorial infarction, or other acute intracranial disease process. 2. No occlusion, hemodynamically significant stenosis, or dissection in the major cervical arteries. 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 3. No occlusion, hemodynamically significant stenosis, aneurysm, dissection, or arteriovenous malformation in the major intracranial arteries. Assessment of stenosis of the internal carotid arteries is based on NASCET criteria. ACT 112: Negative or not required by law. Electronically signed by: Jonnie Tadeo M.D. 07/30/2023 7:13 AM Discharge Plan Visit Data Chief Complaint: Dizziness ED Provider: Sj Zuniga Discharge Problem: Near syncope, Lightheadedness Forms Stand Alone Forms: [facility] Prescriptions Prescriptions: No Action torsemide 10 mg tablet 10 mg PO DAILY tamsulosin 0.4 mg capsule 0.4 mg PO HS hyoscyamine sulfate 0.125 mg tablet 0.125 mg PO Q4 PRN (Reason: Abdominal Pain) vardenafil 20 mg tablet 20 mg PO DAILY PRN (Reason: Erectile Dysfunction) Eliquis 2.5 mg Tablet 2.5 mg PO BID lorazepam 0.5 mg tablet 0.5 mg PO QID PRN (Reason: Anxiety) allopurinol [Zyloprim] 100 mg Tablet 200 mg PO QAM albuterol sulfate [ProAir HFA] 90 mcg/actuation Hfa Aerosol Inhaler 2 puff INHALATION Q4H PRN (Reason: cough or wheezing) cyanocobalamin (vitamin B-12) 1,000 mcg Tablet, Sublingual 1,000 mcg SUBLINGUAL DAILY pantoprazole 40 mg tablet,delayed release (DR/EC) 40 mg PO AMPM Rx Instructions: take with meals ipratropium bromide 42 mcg (0.06 %) spray,non-aerosol 2 spray intranasal TID PRN (Reason: allergies) Rx Instructions: administer into each nostril fluticasone propionate 50 mcg/actuation [place],Suspension 1 spray INTRANASAL QAM Rx Instructions: administer into each nostril metoprolol succinate [Toprol XL] 25 mg Tablet Extended Release 24 Hr 12.5 mg PO QAM Qty: 15 0RF venlafaxine 225 mg tablet extended release 24hr 225 mg PO DAILY Qty: 30 0RF aripiprazole [Abilify] 5 mg Tablet 2.5 mg PO HS Qty: 30 0RF Referrals Referrals: Eamon Felder DO [Primary Care Provider] -
[2023-07-30 06:19] LABS: Basophils # (auto) 0.07 K/uL (0.00-0.20); Basophils % (auto) 1.2 %; Eosinophils # (auto) 0.38 K/uL (0.00-0.50); Eosinophils % (auto) 6.5 %; Hematocrit (blood only) 46.3 % (42.0-52.0); Hemoglobin 14.7 g/dl (14.0-18.0); Immature Granulocytes # (auto) 0.03 K/uL (0.01-0.20); Immature Granulocytes % (auto) 0.5 %; Lymphocytes # (auto) 1.34 K/uL (1.20-3.40); Mean Corpuscular Hemoglobin 29.3 pg (25.0-34.0); Mean Corpuscular Hgb Conc 31.7 g/dL (32.0-36.0); Mean Corpuscular Volume 92.2 fL (80.0-100.0); Monocytes # (auto) 0.61 K/uL (0.11-0.59); Monocytes % (auto) 10.5 %; Neutrophils # (auto) 3.39 K/uL (1.40-6.50); Neutrophils % (auto) 58.3 %; Platelet Count 178 K/uL (130-400); RDW Coefficient of Variation 14.3 % (11.5-14.5); RDW Standard Deviation 48.9 fL (36.4-46.3); Red Blood Count 5.02 M/uL (4.70-6.10); White Blood Count 5.82 K/ul (4.8-10.8)
[2023-07-30 06:29] LABS: Albumin Globulin Ratio 1.3 (0.9-2); Albumin Level 3.7 gm/dl (3.4-5.0); BUN Creatinine Ratio 21.9 (10-20); Bilirubin,Total 0.7 mg/dl (0.2-1.0); Calcium 9.1 mg/dl (8.6-10.3); Creatinine Clr Calc Pharmacy 56.5 ml/min; Est GFR (African American) 56.1 ml/min; Est GFR (Non-African American) 48.4 ml/min; Globulin 2.9 gm/dl (2.5-4.0); Magnesium 1.8 mg/dl (1.7-2.4); Total Protein 6.6 gm/dl (6.0-8.3)
[2023-07-30 06:34] LABS: Troponin I High Sensitivity 42.8 pg/ml (0-20)
[2023-07-30 06:37] LABS: INR 1.1 (0.9-1.1); Partial Thromboplastin Time 28.8 Seconds (21.0-31.0); Prothrombin Time 11.9 Seconds (9.0-12.0)
[2023-07-30] MEDS ORDERED: OPTIRAY 320 125ml IV ONE (06:47)
--- NOTE | 2023-07-30 07:16 | CT Scan Report ---
CT angio neck with con, CT angio head w con, CT head/brain wo con CLINICAL HISTORY: neuro deficit, acute stroke suspected TECHNIQUE: Contiguous axial CT images of the head were acquired from the base of the skull to the kashif constantin without intravenous contrast administration. CT angiography of the head and neck was performed f ollowing intravenous administration of iodinated contrast. Coronal and sagittal MIPS were obtained fr om the axial data set and were submitted for review. Automated dose lowering techniques and/or adjus tment according to patient size were utilized for this examination. All measurements were calculated based on NASCET criteria. CT DOSE: 1364.89 mGy.cm Comparison: Comparison is made to CT head 05/28/2023 FINDINGS: CT head: There is no acute intracranial hemorrhage or evidence of acute territorial infarction. No sh ift of the midline structures, mass effect, or extra-axial abnormalities are shown. Bilateral maxilla ry sinus thickening is seen. Prominent right thyroid nodules measuring up to 17 mm in diameter. CTA Neck: A 3 vessel aortic arch is shown. There is no significant atherosclerotic plaque in the aor tic arch or the origins of the innominate, left common carotid, and left subclavian arteries. There are bilateral, left greater than right, aneurysmal enlargement of the carotid bulbs with mural thromb us versus noncalcified atherosclerotic disease, however no hemodynamically significant stenosis is se en. The left vertebral artery is dominant. CTA Head: The anterior and posterior cerebral circulations are patent. No hemodynamically significan t stenosis, aneurysm, dissection, or arteriovenous malformation is shown. IMPRESSION: 1. No acute intracranial hemorrhage, evidence of acute territorial infarction, or other acute intrac ranial disease process. 2. No occlusion, hemodynamically significant stenosis, or dissection in the major cervical arteries. There is aneurysmal enlargement of the bilateral internal carotid arteries near the carotid bulbs wi th mural thrombus versus noncalcified atherosclerotic disease. 3. No occlusion, hemodynamically significant stenosis, aneurysm, dissection, or arteriovenous malfor mation in the major intracranial arteries. Assessment of stenosis of the internal carotid arteries is based on NASCET criteria. ACT 112: Negative or not required by law. Electronically signed by: Jonnie Tadeo M.D. 07/30/2023 7:13 AM
[2023-07-30 07:32] LABS: Appearance Urine Clear (Clear); Bilirubin Urine Negative (Negative); Blood Urine Negative (Negative); Color Urine Yellow; Glucose Urine UA Negative (Negative); Ketones Urine Negative (Negative); Leukocyte Esterase Urine Negative (Negative); Nitrite Urine Negative (Negative); Protein Urine Negative (Negative); Specific Gravity Urine 1.022 (1.000-1.030); Urobilinogen Urine Negative (Negative)
--- NOTE | 2023-07-30 07:46 | XRay Report ---
XR chest 1V portable CLINICAL HISTORY: near syncope TECHNIQUE: Single frontal radiograph of the chest was obtained. Comparison: Comparison is made to chest radiograph 05/28/2023 FINDINGS: No lines and tubes are seen. Cardiomegaly is noted. The aortic arch is calcified. Right lower lung at electasis is seen. No evidence of pleural effusion or pneumothorax. IMPRESSION: No acute chest disease. ACT 112: Negative or not required by law. Electronically signed by: Jonnie Tadeo M.D. 07/30/2023 7:44 AM
[2023-07-30 08:03] LABS: Amphetamines+Metham, Urine Neg (Neg); Barbiturates, Urine Neg (Neg); Benzodiazepine, Urine Neg (Neg); Cocaine, Urine Neg (Neg); MDMA (Ecstacy), Urine Neg (Neg); Marijuana, Urine Neg (Neg); Methadone, Urine Neg (Neg); Opiate, Urine Neg (Neg); Phencyclidine, Urine Neg (Neg)
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
[2023-07-30] MEDS ORDERED: TORSEMIDE 10 MG TAB PO PRN (10:14)
[2023-07-30] MEDS ORDERED: ACETAMINOPHEN 325 MG TAB PO PRN (10:14)
[2023-07-30] MEDS ORDERED: HYOSCYAMINE SULFATE 0.125 MG TAB PO PRN (10:14)
[2023-07-30] MEDS: METOPROLOL SUCC 25MG EXT REL TAB PO SCH (11:27)
[2023-07-30] MEDS: APIXABAN 2.5 MG TAB PO SCH ×2 (11:35→20:43)
[2023-07-30] MEDS: CYANOCOBALAMIN (B-12) 500 MCG TABLET PO SCH (11:35)
[2023-07-30] MEDS: DOXYCYCLINE HYCLATE 50 MG CAP PO SCH (11:36)
[2023-07-30] MEDS ORDERED: ADVANCED PROBIOTIC 1250 MG CAPSULE PO ONE (12:00)
[2023-07-30] MEDS: LORazepam 0.5 MG TAB PO PRN ×2 (15:23→22:06)
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
[2023-07-30] MEDS: TAMSULOSIN HCL 0.4 MG CAP PO SCH (20:43)
--- OUTSIDE RECORDS SUMMARY | 2023-07-31 00:34 | External Medical Summary | Summary of Care ---
Author Name Unknown Organization [facility] Address [address] [place] [address] Phone [phone] Care Team Providers Care Charge Master Specialist Name Role Phone Eamon Felder DO Primary Care Provider [phone] Reason for Visit * Reason Comments eRx-Medication Refill Encounter Details Date Type Department Care Team (Late st Contact Info) Description 07/29/2023 Refill Family Practice [facility] [address] [facility] [place] [id number] Eamon Felder DO [address] [place] [address] BPH with obstruction/lower urinary tract symptoms Allergies Active Allergy Reactions Criticality Noted Date Comments Dust 04/15/2011 Upper resp sx Other Allergy (See Comments) 10/23/2012 Perfume that contains kiah root causes nasal congestion documented as of this encounter (statuses as of 07/30/2023) Medications Medication Sig Dispensed Refills Start Date [...] (FLONASE) 50 MCG/ACT nasal spray Administer 1 [place] into nostril in the morning. 0 Active Ipratropium [place] 0.06 % Nasal Solution (Atrovent)Indication s:Periodic breathing [...] as of this encounter (statuses as of 07/30/2023) Active Problems Problem Noted Date Diagnosed Date [...] as of this encounter (statuses as of 07/30/2023) Resolved Problems Problem Noted Date Diagnosed Date [...] as of this encounter (statuses as of 07/30/2023) Immunizations Name Administration Dates Next Due COVID-19 mRNA, LNP-s, No Pre serve, 2-Dose Series (WhatsOpen) 07/28/2021,11/16/2020,10/17/2020 Pneumococcal Conjugate Vacc, 13 Valent (Prevnar) [...] encounter Miscellaneous Notes * Telephone Encounter - Teddy Sun RPh - 07/30/2023 7:19 AM ESTRefused Prescriptions: Disp Refills Tamsulosin HCl 0.4 MG Oral Capsule (Flomax)90 Cap*3 Sig: TAKE 1CAPSULE BY MOUTH EVERYDAY AT BEDTIMERefused By: TEDDY SUN LReason for Refusal: Too soonReason for Refusal Comment: 1 year sent 01/24/23 documented in this encounter Plan of Treatment Upcoming Encounters Date Type Department Care Team (Latest Contact Info) Description 08/05/2023 3:30 PM EST Telemedicine Psychiatry, [place] [address] [place] [facility] [place] [address] Pippa yRan MD [address] [facility] [place] [id number] 10/10/2023 1:45 PM EST Hospital Encounter [facility], Operating Room [facility] [address] [place] [address] [place] [phone] Fabián Caballero, DO [address] [place] [phone] 10/10/2023 1:45 PM EST - 10/10/2023 2:10 PM EST Surgery OR [facility], Operating Room [facility] [address] [place] [phone] Fabián Caballero, DO [address] [place] [phone] INJECTION SPINE LUMBAR OR [facility] 12/05/2023 12:00 PM EDT Office Visit [facility] [place] [address] [place] [phone] Herlinda [place]enee CRNP [address] [place] [address] 12/22/2023 12:40 PM EDT Office Visit Family Practice [facility] [place] [address] [facility] [place] [address] Eamon Felder, DO [address] [facility] [place] [address] 01/16/2024 11:00 AM EDT Office Visit [facility] [address] [place] [address] Russ Morley PATarun [address] [place] [address] Scheduled Procedures Name Priority Associated Diagnoses Date/Ti [...] Additional history exists CKD PHOS USE SMARTSET 24563 06/18/202306/08, 08/17/2021, 03/14/2020, Additional history exists GFR 01/20/2024 07/22/2023, 05/09, 04/14/2023, Additional history exists Depression Screening 05/26/2024 05/26/2023 HbA1c 06/06/2024 06/06/2023, 12/07, 02/12/2011, Additional history exists CKD HGB USE SMARTSET 28155 07/22/202407/22, 07/22/2023, 05/26/2023, Additional history exists Jha's Esophagus Surveilance 07/24/2024 07/24/2021, 04/05/2020, 05/01/2016, Additional history exists DTaP,Tdap,and Td Vaccines (3 - Td or Tdap) 10/08/2032 10/08/2022, 10/26/2015, 06/13/2008 Pneumococcal Vaccine: 65+ Years Completed [...] as of this encounter Visit Diagnoses Diagnosis BPH with obstruction/lower urinary tract symptoms Hypertrophy of prostate with urinary obstruction and other lower urinary tract symptoms (LUTS) Lumbar radiculopathy Thoracic or lumbosacral neuritis or radiculitis, unspecified documented in this encounter Advance Directives Latest Code Status on File Code Status Date Activated Date Inactivated Comments Full Code 07/07/2020 12:46 AM 07/12/2020 5:11 PM Thi s order reflects the patients wishes and were consensually agreed upon. Care Teams Charge Master Specialist Relationship Specialty Start Date End Date Eamon Felder DO [address] [place] [address] PCP - General Family Medicine 08/25/18 documented as of this encounter
[2023-07-31 06:19] LABS: BUN Creatinine Ratio 18.7 (10-20); Calcium 9.3 mg/dl (8.6-10.3); Creatinine Clr Calc Pharmacy 57.7 ml/min; Est GFR (African American) 57.6 ml/min; Est GFR (Non-African American) 49.7 ml/min; Potassium 4.1 mmol/L (3.5-5.1)
[2023-07-31 06:21] LABS: Mean Corpuscular Hemoglobin 29.7 pg (25.0-34.0); Mean Corpuscular Hgb Conc 32.6 g/dL (32.0-36.0); Mean Corpuscular Volume 91.1 fL (80.0-100.0); Mean Platelet Volume 9.9 fL (9.4-12.4); Platelet Count 182 K/uL (130-400); RDW Coefficient of Variation 14.4 % (11.5-14.5); RDW Standard Deviation 48.3 fL (36.4-46.3); Red Blood Count 5.05 M/uL (4.70-6.10)
--- NOTE | 2023-07-31 07:28 | Electrocardiogram Report ---
Test Reason : Blood Pressure : / mmHG Vent. Rate : 071 BPM Atrial Rate : 000 BPM P-R Int : 000 ms QRS Dur : 136 ms QT Int : 414 ms P-R-T Axes : 000 -53 039 degrees QTc Int : 449 ms Atrial fibrillation with premature ventricular or aberrantly conducted complexes Left axis deviation Non-specific intra-ventricular conduction block Abnormal ECG When compared with ECG of 28-MAY-2023 13:06, Nonspecific T wave abnormality no longer evident in Inferior leads Confirmed by Yousif Elkins ([id number]) on 07/31/2023 7:28:02 AM Referred By: REFERRED SELF Confirmed By:Yousif Elkins
[2023-07-31] MEDS: DOXYCYCLINE HYCLATE 50 MG CAP PO SCH (09:34)
[2023-07-31] MEDS: APIXABAN 2.5 MG TAB PO SCH ×2 (09:34→20:05)
[2023-07-31] MEDS: METOPROLOL SUCC 25MG EXT REL TAB PO SCH (09:34)
[2023-07-31] MEDS: CYANOCOBALAMIN (B-12) 500 MCG TABLET PO SCH (09:34)
[2023-07-31] MEDS: ADVANCED PROBIOTIC 1250 MG CAPSULE PO SCH (09:35)
[2023-07-31] MEDS: LORazepam 0.5 MG TAB PO PRN ×2 (12:41→20:11)
--- NOTE | 2023-07-31 15:09 | Hospitalist Progress Note ---
Date of Service July 31, 2023 Assessment & Plan (1) Suicidal ideations: (2) Depression with anxiety: Plan: Admit to [facility] with telemetry Patient presenting from home with reports of lightheadedness which has been an ongoing issue for the past several months. Also reports ongoing feelings of depression with suicidal ideations. Patient states he has a gun and knife in the house which no one else knows about. Denies suicidal attempt. Timeline of psychiatric medication changes as outlined in HPI Follows with psychiatrist Dr. Monk with [facility] Suicide precautions, one-to-one observation Psychiatry consult-appreciate input and recommendation Advised to have mirtazapine 30 mg p.o. 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 In the past, patient's metoprolol and torsemide doses have been reduced in an attempt to control lightheadedness. Patient also routinely wears compression stockings. 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 Discussed with vascular surgery Sheyla Olivier PA-C. Patient will need outpatient follow-up. Noted that patient is already anticoagulated with Eliquis for history of atrial fibrillation. Continue to monitor orthostatic BPs Symptoms may be due to multiple psychiatric medication changes (5) Elevated troponin: Plan: History of chronic troponin elevation HS troponin 42.8 --> 36.6; slightly higher than recent readings No reports of chest pain, EKG without acute ST changes Continue to trend troponin. Consider additional workup if further elevation. Doubt any ACS (6) Chronic atrial fibrillation: Plan: Rate controlled on metoprolol, anticoagulated on Eliquis (7) HFrEF (heart failure with reduced ejection fraction): Plan: EF 50% on echo 12/2022 Appears euvolemic, utilizes torsemide on an as-needed basis (8) Stage III chronic kidney disease: Plan: Baseline creatinine low-mid 1s Creatinine 1.3 today Monitor renal functions (9) MYRON (obstructive sleep apnea): Plan: CPAP as per home settings (10) BPH NOS w ur obs/LUTS: Plan: Continue tamsulosin DVT PROPHYLAXIS On Abdias Admission and Anticipated Discharge Date Admission Date: July 30, 2023 Subjective 07/31/2023 The patient was seen and examined in emergency room He has been stable today and denies any significant symptoms Has chronic symptoms of lightheadedness/fuzzy feeling in the head with or without ambulation Review of Systems Review of Systems: All systems reviewed and are unremarkable except as noted below Physical Exam Physical Exam: Sitting at the edge of the bed without any acute distress Constitutional: well developed, well nourished, + ill appearing and + obese Eyes: PERRL, conjunctivae normal, anicteric sclerae ENMT: external ear and nose normal, oropharynx normal Neck: trachea midline, no thyromegaly Respiratory: no respiratory distress Auscultation: lungs clear to auscultation bilaterally Cardiovascular: Rate/Rhythm: regular rate and regular rhythm; not tachycardic Gastrointestinal (Abdomen): Inspection/Auscultation: normal bowel sounds; abdomen not distended Percussion/Palpation: abdomen soft; abdomen nontender Musculoskeletal: No acute arthritis involving any joint Neurologic: normal touch/pain/proprioception and moves all extremities; no focal motor deficits Lymphatic: no cervical or axillary lymphadenopathy Results & Data Results & Data Vital Signs (Past 12 Hours) Vital Signs Temp Pulse Pulse Resp BP BP Pulse Ox 07/31/23 13:13 69 22 135/83 99 07/31/23 12:58 82 21 135/83 97 07/31/23 11:13 07/31/23 09:41 80 22 122/78 96 07/31/23 09:38 72 28 H 122/78 07/31/23 07:05 36.8 C 71 20 97 07/31/23 06:44 84 23 131/80 94 07/31/23 05:00 63 15 127/84 07/31/23 04:00 73 22 113/72 93 07/31/23 03:46 65 20 98 Pulse Ox O2 Del Method O2 Del Method 07/31/23 13:13 CPAP 07/31/23 12:58 07/31/23 11:13 96 Room Air 07/31/23 09:41 Room Air 07/31/23 09:38 07/31/23 07:05 Room Air 07/31/23 06:44 Room Air 07/31/23 05:00 07/31/23 04:00 CPAP 07/31/23 03:46 Laboratory Results Short CBC 07/31/23 Range/Units 05:49 WBC 6.90 (4.8-10.8) K/ul Hgb 15.0 (14.0-18.0) g/dl Hct 46.0 (42.0-52.0) % Plt Count 182 (130-400) K/uL BMP 07/31/23 05:49 Sodium 140 Potassium 4.1 Chloride 107 Carbon Dioxide 26 BUN 25 H Creatinine 1.34 Glucose 105 H Calcium 9.3 Medications Administered Current Inpatient Medications Acetaminophen (Acetaminophen 325 Mg Tab) 650 mg PO Q4H PRN PRN Reason: Pain or Fever Stop: 08/29/23 10:13 Last Admin: 07/30/23 16:42 Dose: 650 mg Apixaban (Apixaban 2.5 Mg Tab) 2.5 mg PO BID ALEKSANDRA Stop: 08/29/23 11:59 Last Admin: 07/31/23 09:34 Dose: 2.5 mg Cyanocobalamin (Cyanocobalamin (B-12) 500 Mcg Tablet) 1,000 mcg PO DAILY ALEKSANDRA Stop: 08/29/23 11:59 Last Admin: 07/31/23 09:34 Dose: 1,000 mcg Doxycycline Hyclate (Doxycycline Hyclate 50 Mg Cap) 50 mg PO DAILY ALEKSANDRA Stop: 08/29/23 11:59 Last Admin: 07/31/23 09:34 Dose: 50 mg Hyoscyamine (Hyoscyamine Sulfate 0.125 Mg Tab) 0.125 mg PO Q4 PRN PRN Reason: Abdominal Pain Stop: 08/29/23 10:13 Lactobacillus Acidophilus (Advanced Probiotic 1250 Mg Capsule) 2 cap PO DAILY ALEKSANDRA Stop: 08/30/23 11:59 Last Admin: 07/31/23 09:35 Dose: 2 cap Lorazepam (Lorazepam 0.5 Mg Tab) 0.5 mg PO QID PRN PRN Reason: Anxiety Stop: 08/29/23 10:13 Last Admin: 07/31/23 12:41 Dose: 0.5 mg Metoprolol Succinate (Metoprolol Succ 25mg Ext Rel Tab) 12.5 mg PO QAM ALEKSANDRA Stop: 08/29/23 10:13 Last Admin: 07/31/23 09:34 Dose: 12.5 mg Tamsulosin HCl (Tamsulosin Hcl 0.4 Mg Cap) 0.4 mg PO HS ALEKSANDRA Stop: 08/29/23 20:59 Last Admin: 07/30/23 20:43 Dose: 0.4 mg Torsemide (Torsemide 10 Mg Tab) 10 mg PO DAILY PRN PRN Reason: Edema Stop: 08/29/23 10:13
[2023-07-31] MEDS: MIRTAZAPINE TAB 15 MG TAB PO SCH (20:06)
[2023-07-31] MEDS: TAMSULOSIN HCL 0.4 MG CAP PO SCH (20:06)
[2023-08-01 08:03] LABS: BUN Creatinine Ratio 16.2 (10-20); Calcium 9.2 mg/dl (8.6-10.3); Creatinine Clr Calc Pharmacy 53.7 ml/min; Est GFR (African American) 53.7 ml/min; Est GFR (Non-African American) 46.3 ml/min
[2023-08-01] MEDS: APIXABAN 2.5 MG TAB PO SCH ×2 (10:39→20:56)
[2023-08-01] MEDS: METOPROLOL SUCC 25MG EXT REL TAB PO SCH (10:39)
[2023-08-01] MEDS: DOXYCYCLINE HYCLATE 50 MG CAP PO SCH (10:39)
[2023-08-01] MEDS: CYANOCOBALAMIN (B-12) 500 MCG TABLET PO SCH (10:39)
[2023-08-01] MEDS: ADVANCED PROBIOTIC 1250 MG CAPSULE PO SCH (10:40)
--- NOTE | 2023-08-01 16:48 | Hospitalist Progress Note ---
Date of Service August 01, 2023 Assessment & Plan (1) Suicidal ideations: (2) Depression with anxiety: Plan: Admit to [facility] with telemetry Patient presenting from home with reports of lightheadedness which has been an ongoing issue for the past several months. Also reports ongoing feelings of depression with suicidal ideations. Patient states he has a gun and knife in the house which no one else knows about. Denies suicidal attempt. Timeline of psychiatric medication changes as outlined in HPI Follows with psychiatrist Dr. Monk with [facility] Suicide precautions, one-to-one observation Psychiatry consult-appreciate input and recommendation Advised to have mirtazapine 30 mg p.o. 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 In the past, patient's metoprolol and torsemide doses have been reduced in an attempt to control lightheadedness. Patient also routinely wears compression stockings. 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 Discussed with vascular surgery Sheyla Olivier PA-C. Patient will need outpatient follow-up. Noted that patient is already anticoagulated with Eliquis for history of atrial fibrillation. Continue to monitor orthostatic BPs Symptoms may be due to multiple psychiatric medication changes (5) Elevated troponin: Plan: History of chronic troponin elevation HS troponin 42.8 --> 36.6; slightly higher than recent readings No reports of chest pain, EKG without acute ST changes Continue to trend troponin. Consider additional workup if further elevation. Doubt any ACS (6) Chronic atrial fibrillation: Plan: Rate controlled on metoprolol, anticoagulated on Eliquis (7) HFrEF (heart failure with reduced ejection fraction): Plan: EF 50% on echo 12/2022 Appears euvolemic, utilizes torsemide on an as-needed basis (8) Stage III chronic kidney disease: Plan: Baseline creatinine low-mid 1s Creatinine 1.3 today Monitor renal functions (9) MYRON (obstructive sleep apnea): Plan: CPAP as per home settings (10) BPH NOS w ur obs/LUTS: Plan: Continue tamsulosin DVT PROPHYLAXIS On Eliquis Will likely need rehab Admission and Anticipated Discharge Date Admission Date: August 01, 2023 Subjective 07/31/2023 The patient was seen and examined in emergency room He has been stable today and denies any significant symptoms Has chronic symptoms of lightheadedness/fuzzy feeling in the head with or without ambulation 08/01/2023 The patient was seen and examined in medical telemetry unit He has been complaining of left ear filled with water but has not been having any pain and/or deafness Denies any other symptoms Review of Systems Review of Systems: All systems reviewed and are unremarkable except as noted below Physical Exam Physical Exam: Sitting at the edge of the bed without any acute distress Constitutional: well developed, well nourished, + ill appearing and + obese Eyes: PERRL, conjunctivae normal, anicteric sclerae ENMT: external ear and nose normal, oropharynx normal Ears: + TM abnormality (Bulging of left tympanic membrane likely secondary to middle ear fluid); no hearing impairment Neck: trachea midline, no thyromegaly Respiratory: no respiratory distress Auscultation: lungs clear to auscultation bilaterally Cardiovascular: Rate/Rhythm: regular rate and regular rhythm; not tachycardic Gastrointestinal (Abdomen): Inspection/Auscultation: normal bowel sounds; abdomen not distended Percussion/Palpation: abdomen soft; abdomen nontender Neurologic: normal touch/pain/proprioception and moves all extremities; no focal motor deficits Lymphatic: no cervical or axillary lymphadenopathy Results & Data Results & Data Vital Signs (Past 12 Hours) Vital Signs Temp Pulse Pulse Resp BP Pulse Ox O2 Del Method 08/01/23 15:03 36.6 C 68 18 95 Room Air 08/01/23 12:11 77 08/01/23 10:57 36.7 C 74 18 130/82 96 Room Air 08/01/23 07:10 36.9 C 74 18 121/74 96 Room Air Laboratory Results [facility] 08/01/23 06:51 Sodium 141 Potassium 4.0 Chloride 110 H Carbon Dioxide 25 BUN 23 Creatinine 1.42 H Glucose 99 Calcium 9.2 Medications Administered Current Inpatient Medications Acetaminophen (Acetaminophen 325 Mg Tab) 650 mg PO Q4H PRN PRN Reason: Pain or Fever Stop: 08/29/23 10:13 Last Admin: 07/30/23 16:42 Dose: 650 mg Apixaban (Apixaban 2.5 Mg Tab) 2.5 mg PO BID ALEKSANDRA Stop: 08/29/23 11:59 Last Admin: 08/01/23 10:39 Dose: 2.5 mg Cyanocobalamin (Cyanocobalamin (B-12) 500 Mcg Tablet) 1,000 mcg PO DAILY ALEKSANDRA Stop: 08/29/23 11:59 Last Admin: 08/01/23 10:39 Dose: 1,000 mcg Doxycycline Hyclate (Doxycycline Hyclate 50 Mg Cap) 50 mg PO DAILY ALEKSANDRA Stop: 08/29/23 11:59 Last Admin: 08/01/23 10:39 Dose: 50 mg Hyoscyamine (Hyoscyamine Sulfate 0.125 Mg Tab) 0.125 mg PO Q4 PRN PRN Reason: Abdominal Pain Stop: 08/29/23 10:13 Lactobacillus Acidophilus (Advanced Probiotic 1250 Mg Capsule) 2 cap PO DAILY ALEKSANDRA Stop: 08/30/23 11:59 Last Admin: 08/01/23 10:40 Dose: 2 cap Lorazepam (Lorazepam 0.5 Mg Tab) 0.5 mg PO QID PRN PRN Reason: Anxiety Stop: 08/29/23 10:13 Last Admin: 07/31/23 20:11 Dose: 0.5 mg Metoprolol Succinate (Metoprolol Succ 25mg Ext Rel Tab) 12.5 mg PO QAM ALEKSANDRA Stop: 08/29/23 10:13 Last Admin: 08/01/23 10:39 Dose: 12.5 mg Mirtazapine (Mirtazapine Tab 15 Mg Tab) 30 mg PO HS ALEKSANDRA Stop: 08/30/23 20:59 Last Admin: 07/31/23 20:06 Dose: 30 mg Tamsulosin HCl (Tamsulosin Hcl 0.4 Mg Cap) 0.4 mg PO HS ALEKSANDRA Stop: 08/29/23 20:59 Last Admin: 07/31/23 20:06 Dose: 0.4 mg Torsemide (Torsemide 10 Mg Tab) 10 mg PO DAILY PRN PRN Reason: Edema Stop: 08/29/23 10:13 Last Admin: 08/01/23 10:39 Dose: 10 mg
[2023-08-01] MEDS ORDERED: ERGOCALCIFEROL 50,000 UNITS 1250 MCG CAP PO SCH (17:00)
[2023-08-01] MEDS: LORazepam 0.5 MG TAB PO PRN ×2 (17:27→20:56)
[2023-08-01] MEDS: LORATADINE 10 MG TAB PO SCH (17:48)
[2023-08-01] MEDS: TAMSULOSIN HCL 0.4 MG CAP PO SCH (20:56)
[2023-08-01] MEDS: MIRTAZAPINE TAB 15 MG TAB PO SCH (20:56)
[2023-08-02] MEDS: DOXYCYCLINE HYCLATE 50 MG CAP PO SCH (08:23)
[2023-08-02] MEDS: LORATADINE 10 MG TAB PO SCH (08:23)
[2023-08-02] MEDS: METOPROLOL SUCC 25MG EXT REL TAB PO SCH (08:23)
[2023-08-02] MEDS: CYANOCOBALAMIN (B-12) 500 MCG TABLET PO SCH (08:23)
[2023-08-02] MEDS: ADVANCED PROBIOTIC 1250 MG CAPSULE PO SCH (08:23)
[2023-08-02] MEDS: APIXABAN 2.5 MG TAB PO SCH ×2 (08:23→19:47)
[2023-08-02 08:37] LABS: Creatinine Clr Calc Pharmacy 44.2 ml/min; Est GFR (African American) 42.9 ml/min
[2023-08-02] MEDS: LORazepam 0.5 MG TAB PO PRN ×2 (10:22→23:14)
--- NOTE | 2023-08-02 13:01 | Hospitalist Progress Note ---
Date of Service August 02, 2023 Assessment & Plan (1) Suicidal ideations: (2) Depression with anxiety: Plan: Admit to [facility] with telemetry Patient presenting from home with reports of lightheadedness which has been an ongoing issue for the past several months. Also reports ongoing feelings of depression with suicidal ideations. Patient states he has a gun and knife in the house which no one else knows about. Denies suicidal attempt. Timeline of psychiatric medication changes as outlined in HPI Follows with psychiatrist Dr. Monk with [facility] Suicide precautions, one-to-one observation Psychiatry consult-appreciate input and recommendation Advised to have mirtazapine 30 mg p.o. 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 In the past, patient's metoprolol and torsemide doses have been reduced in an attempt to control lightheadedness. Patient also routinely wears compression stockings. 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 Discussed with vascular surgery Sheyla Olivier PA-C. Patient will need outpatient follow-up. Noted that patient is already anticoagulated with Eliquis for history of atrial fibrillation. Continue to monitor orthostatic BPs Symptoms may be due to multiple psychiatric medication changes (5) Elevated troponin: Plan: History of chronic troponin elevation HS troponin 42.8 --> 36.6; slightly higher than recent readings No reports of chest pain, EKG without acute ST changes Continue to trend troponin. Consider additional workup if further elevation. Doubt any ACS (6) Chronic atrial fibrillation: Plan: Rate controlled on metoprolol, anticoagulated on Eliquis (7) HFrEF (heart failure with reduced ejection fraction): Plan: EF 50% on echo 12/2022 Appears euvolemic, utilizes torsemide on an as-needed basis (8) Stage III chronic kidney disease: Plan: Baseline creatinine low-mid 1s Creatinine 1.3 today Monitor renal functions (9) MYRON (obstructive sleep apnea): Plan: CPAP as per home settings (10) BPH NOS w ur obs/LUTS: Plan: Continue tamsulosin DVT PROPHYLAXIS On Eliquis Will likely need rehab Admission and Anticipated Discharge Date Admission Date: August 01, 2023 Subjective 07/31/2023 The patient was seen and examined in emergency room He has been stable today and denies any significant symptoms Has chronic symptoms of lightheadedness/fuzzy feeling in the head with or without ambulation 08/01/2023 The patient was seen and examined in medical telemetry unit He has been complaining of left ear filled with water but has not been having any pain and/or deafness Denies any other symptoms 08/02/2023 The patient was seen and examined in medical telemetry unit He has been feeling better and is left ear seems to be improved No suicidal ideation and does not require any more suicide cautions Asking when he can be discharged Review of Systems Review of Systems: All systems reviewed and are unremarkable except as noted below Physical Exam Physical Exam: Sitting at the edge of the bed without any acute distress Constitutional: well developed, well nourished, + ill appearing and + obese Eyes: PERRL, conjunctivae normal, anicteric sclerae ENMT: external ear and nose normal, oropharynx normal Ears: + TM abnormality (Bulging of left tympanic membrane likely secondary to middle ear fluid); no hearing impairment Neck: trachea midline, no thyromegaly Respiratory: no respiratory distress Auscultation: lungs clear to auscultation bilaterally Cardiovascular: Rate/Rhythm: regular rate and regular rhythm; not tachycardic Gastrointestinal (Abdomen): Inspection/Auscultation: normal bowel sounds; abdomen not distended Percussion/Palpation: abdomen soft; abdomen nontender Musculoskeletal: No acute arthritis involving any of the joint Neurologic: normal touch/pain/proprioception and moves all extremities; no focal motor deficits Lymphatic: no cervical or axillary lymphadenopathy Results & Data Results & Data Vital Signs (Past 12 Hours) Vital Signs Temp Pulse Pulse Resp BP Pulse Ox O2 Del Method 08/02/23 11:20 36.5 C 88 18 114/70 95 Room Air 08/02/23 08:04 36.4 C L 80 18 123/77 98 Room Air 08/02/23 05:53 72 08/02/23 03:16 74 20 95 08/02/23 03:00 36.8 C 71 20 101/66 95 CPAP FiO2 08/02/23 11:20 08/02/23 08:04 08/02/23 05:53 08/02/23 03:16 21 08/02/23 03:00 Laboratory Results BMP 08/02/23 07:57 Creatinine 1.71 H Medications Administered Current Inpatient Medications Acetaminophen (Acetaminophen 325 Mg Tab) 650 mg PO Q4H PRN PRN Reason: Pain or Fever Stop: 08/29/23 10:13 Last Admin: 07/30/23 16:42 Dose: 650 mg Apixaban (Apixaban 2.5 Mg Tab) 2.5 mg PO BID [facility] Stop: 08/29/23 11:59 Last Admin: 08/02/23 08:23 Dose: 2.5 mg Cyanocobalamin (Cyanocobalamin (B-12) 500 Mcg Tablet) 1,000 mcg PO DAILY ALEKSANDRA Stop: 08/29/23 11:59 Last Admin: 08/02/23 08:23 Dose: 1,000 mcg Doxycycline Hyclate (Doxycycline Hyclate 50 Mg Cap) 50 mg PO DAILY ALEKSANDRA Stop: 08/29/23 11:59 Last Admin: 08/02/23 08:23 Dose: 50 mg Ergocalciferol (Ergocalciferol 50,000 Units 1250 Mcg Cap) 50,000 units PO Q7D ALEKSANDRA Stop: 08/31/23 16:59 Last Admin: 08/01/23 17:48 Dose: 50,000 units Hyoscyamine (Hyoscyamine Sulfate 0.125 Mg Tab) 0.125 mg PO Q4 PRN PRN Reason: Abdominal Pain Stop: 08/29/23 10:13 Lactobacillus Acidophilus (Advanced Probiotic 1250 Mg Capsule) 2 cap PO DAILY ALEKSANDRA Stop: 08/30/23 11:59 Last Admin: 08/02/23 08:23 Dose: 2 cap Loratadine (Loratadine 10 Mg Tab) 10 mg PO QAM ALEKSANDRA Stop: 08/31/23 16:59 Last Admin: 08/02/23 08:23 Dose: 10 mg Lorazepam (Lorazepam 0.5 Mg Tab) 0.5 mg PO QID PRN PRN Reason: Anxiety Stop: 08/29/23 10:13 Last Admin: 08/02/23 10:22 Dose: 0.5 mg Metoprolol Succinate (Metoprolol Succ 25mg Ext Rel Tab) 12.5 mg PO QAM ALEKSANDRA Stop: 08/29/23 10:13 Last Admin: 08/02/23 08:23 Dose: 12.5 mg Mirtazapine (Mirtazapine Tab 15 Mg Tab) 30 mg PO HS ALEKSANDRA Stop: 08/30/23 20:59 Last Admin: 08/01/23 20:56 Dose: 30 mg Tamsulosin HCl (Tamsulosin Hcl 0.4 Mg Cap) 0.4 mg PO HS ALEKSANDRA Stop: 08/29/23 20:59 Last Admin: 08/01/23 20:56 Dose: 0.4 mg Torsemide (Torsemide 10 Mg Tab) 10 mg PO DAILY PRN PRN Reason: Edema Stop: 08/29/23 10:13 Last Admin: 08/01/23 10:39 Dose: 10 mg
[2023-08-02] MEDS: TAMSULOSIN HCL 0.4 MG CAP PO SCH (19:47)
[2023-08-02] MEDS: MIRTAZAPINE TAB 15 MG TAB PO SCH (19:47)
[2023-08-03] MEDS: LORATADINE 10 MG TAB PO SCH (09:37)
[2023-08-03] MEDS: METOPROLOL SUCC 25MG EXT REL TAB PO SCH ×2 (09:37→21:28)
[2023-08-03] MEDS: ADVANCED PROBIOTIC 1250 MG CAPSULE PO SCH (09:38)
[2023-08-03] MEDS: CYANOCOBALAMIN (B-12) 500 MCG TABLET PO SCH (09:38)
[2023-08-03] MEDS: DOXYCYCLINE HYCLATE 50 MG CAP PO SCH (09:38)
[2023-08-03] MEDS: APIXABAN 2.5 MG TAB PO SCH ×2 (09:38→21:28)
--- NOTE | 2023-08-03 14:43 | Hospitalist Progress Note ---
Date of Service August 03, 2023 Assessment & Plan (1) Suicidal ideations: Plan: Seems resolved for the last few days Suicide precautions have been taken (2) Depression with anxiety: Plan: Admit to [facility] with telemetry Patient presenting from home with reports of lightheadedness which has been an ongoing issue for the past several months. Also reports ongoing feelings of depression with suicidal ideations. Patient states he has a gun and knife in the house which no one else knows about. Denies suicidal attempt. Timeline of psychiatric medication changes as outlined in HPI Follows with psychiatrist Dr. Monk with [facility]inger Suicide precautions, one-to-one observation Psychiatry consult-appreciate input and recommendation Advised to have mirtazapine 30 mg p.o. every afternoon and increase the dose to 45 mg if there is no excessive sedation and or appetite Will check vitamin D level as advised He has been sleeping well and feeling better Vitamin D level has been low at 18.6-will give supplement Has been getting vitamin D 50,000 unit weekly for 6 weeks and followed by daily doses of around 400 and He has been having drowsiness and has been sleeping a lot at night Will decrease mirtazepine to 15 mg daily Middle ear fluid on the left side We will try Claritin Middle ear is feeling better (3) Lightheadedness: Plan: Likely secondary to orthostatic hypotension Has been getting physical therapy and doing very well Did very well with PT and OT-doing very well with PT and OT and has been ambulating in the hallway with a walker without any other help (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 In the past, patient's metoprolol and torsemide doses have been reduced in an attempt to control lightheadedness. Patient also routinely wears compression stockings. 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 Discussed with vascular surgery Sheyla Olivier PA-C. Patient will need outpatient follow-up. Noted that patient is already anticoagulated with Eliquis for history of atrial fibrillation. Continue to monitor orthostatic BPs Symptoms may be due to multiple psychiatric medication changes (5) Elevated troponin: Plan: History of chronic troponin elevation HS troponin 42.8 --> 36.6; slightly higher than recent readings No reports of chest pain, EKG without acute ST changes Continue to trend troponin. Consider additional workup if further elevation. Doubt any ACS (6) Chronic atrial fibrillation: Plan: Rate controlled on metoprolol, anticoagulated on Eliquis Rate to have short runs of VT x 2 Will increase the dose of metoprolol to twice daily (7) HFrEF (heart failure with reduced ejection fraction): Plan: EF 50% on echo 12/2022 Appears euvolemic, utilizes torsemide on an as-needed basis (8) Stage III chronic kidney disease: Plan: Baseline creatinine low-mid 1s Creatinine 1.3 today Monitor renal functions (9) MYRON (obstructive sleep apnea): Plan: CPAP as per home settings (10) BPH NOS w ur obs/LUTS: Plan: Continue tamsulosin DVT PROPHYLAXIS On Eliquis Will likely need rehab Admission and Anticipated Discharge Date Admission Date: August 01, 2023 Subjective 07/31/2023 The patient was seen and examined in emergency room He has been stable today and denies any significant symptoms Has chronic symptoms of lightheadedness/fuzzy feeling in the head with or without ambulation 08/01/2023 The patient was seen and examined in medical telemetry unit He has been complaining of left ear filled with water but has not been having any pain and/or deafness Denies any other symptoms 08/02/2023 The patient was seen and examined in medical telemetry unit He has been feeling better and is left ear seems to be improved No suicidal ideation and does not require any more suicide cautions Asking when he can be discharged 08/03/2023 The patient was seen and examined in medical telemetry unit He has been sleeping a lot and feels a little drowsy this morning He feels that he has been getting more medicine that he needs Review of Systems Review of Systems: All systems reviewed and are unremarkable except as noted below Physical Exam Physical Exam: Sitting at the edge of the bed without any acute distress Constitutional: well developed, well nourished, + ill appearing and + obese Eyes: PERRL, conjunctivae normal, anicteric sclerae ENMT: external ear and nose normal, oropharynx normal Ears: + TM abnormality (Bulging of left tympanic membrane likely secondary to middle ear fluid); no hearing impairment Neck: trachea midline, no thyromegaly Respiratory: no respiratory distress Auscultation: lungs clear to auscultation bilaterally Cardiovascular: Rate/Rhythm: regular rate and regular rhythm; not tachycardic Gastrointestinal (Abdomen): Inspection/Auscultation: normal bowel sounds; abdomen not distended Percussion/Palpation: abdomen soft; abdomen nontender Musculoskeletal: No acute arthritis involving any joint Neurologic: normal touch/pain/proprioception and moves all extremities; no focal motor deficits Lymphatic: no cervical or axillary lymphadenopathy Results & Data Results & Data Vital Signs (Past 12 Hours) Vital Signs Temp Pulse Pulse Resp BP Pulse Ox O2 Del Method 08/03/23 13:04 36.7 C 85 16 109/76 95 Room Air 08/03/23 08:19 36.3 C L 87 16 112/67 90 Room Air 08/03/23 07:50 92 H 08/03/23 03:41 36.6 C 70 18 104/66 93 Room Air Medications Administered Current Inpatient Medications Acetaminophen (Acetaminophen 325 Mg Tab) 650 mg PO Q4H PRN PRN Reason: Pain or Fever Stop: 08/29/23 10:13 Last Admin: 07/30/23 16:42 Dose: 650 mg Apixaban (Apixaban 2.5 Mg Tab) 2.5 mg PO BID [facility] Stop: 08/29/23 11:59 Last Admin: 08/03/23 09:38 Dose: 2.5 mg Cyanocobalamin (Cyanocobalamin (B-12) 500 Mcg Tablet) 1,000 mcg PO DAILY ALEKSANDRA Stop: 08/29/23 11:59 Last Admin: 08/03/23 09:38 Dose: 1,000 mcg Doxycycline Hyclate (Doxycycline Hyclate 50 Mg Cap) 50 mg PO DAILY ALEKSANDRA Stop: 08/29/23 11:59 Last Admin: 08/03/23 09:38 Dose: 50 mg Ergocalciferol (Ergocalciferol 50,000 Units 1250 Mcg Cap) 50,000 units PO Q7D ALEKSANDRA Stop: 08/31/23 16:59 Last Admin: 08/01/23 17:48 Dose: 50,000 units Hyoscyamine (Hyoscyamine Sulfate 0.125 Mg Tab) 0.125 mg PO Q4 PRN PRN Reason: Abdominal Pain Stop: 08/29/23 10:13 Lactobacillus Acidophilus (Advanced Probiotic 1250 Mg Capsule) 2 cap PO DAILY ALEKSANDRA Stop: 08/30/23 11:59 Last Admin: 08/03/23 09:38 Dose: 2 cap Loratadine (Loratadine 10 Mg Tab) 10 mg PO QAM ALEKSANDRA Stop: 08/31/23 16:59 Last Admin: 08/03/23 09:37 Dose: 10 mg Lorazepam (Lorazepam 0.5 Mg Tab) 0.5 mg PO QID PRN PRN Reason: Anxiety Stop: 08/29/23 10:13 Last Admin: 08/02/23 23:14 Dose: 0.5 mg Metoprolol Succinate (Metoprolol Succ 25mg Ext Rel Tab) 12.5 mg PO BID ALEKSANDRA Stop: 09/02/23 20:59 Mirtazapine (Mirtazapine Tab 15 Mg Tab) 15 mg PO HS ALEKSANDRA Stop: 09/02/23 20:59 Tamsulosin HCl (Tamsulosin Hcl 0.4 Mg Cap) 0.4 mg PO HS ALEKSANDRA Stop: 08/29/23 20:59 Last Admin: 08/02/23 19:47 Dose: 0.4 mg Torsemide (Torsemide 10 Mg Tab) 10 mg PO DAILY PRN PRN Reason: Edema Stop: 08/29/23 10:13 Last Admin: 08/01/23 10:39 Dose: 10 mg
[2023-08-03] MEDS ORDERED: MIRTAZAPINE TAB 15 MG TAB PO SCH (21:00)
[2023-08-03] MEDS: TAMSULOSIN HCL 0.4 MG CAP PO SCH (21:28)
[2023-08-04 06:55] LABS: Basophils # (auto) 0.06 K/uL (0.00-0.20); Basophils % (auto) 0.8 %; Eosinophils # (auto) 0.34 K/uL (0.00-0.50); Eosinophils % (auto) 4.4 %; Hematocrit (blood only) 44.8 % (42.0-52.0); Immature Granulocytes # (auto) 0.02 K/uL (0.01-0.20); Immature Granulocytes % (auto) 0.3 %; Lymphocytes # (auto) 1.47 K/uL (1.20-3.40); Lymphocytes % (auto) 19.2 %; Mean Corpuscular Hemoglobin 29.8 pg (25.0-34.0); Mean Corpuscular Hgb Conc 33.5 g/dL (32.0-36.0); Mean Corpuscular Volume 88.9 fL (80.0-100.0); Mean Platelet Volume 10.2 fL (9.4-12.4); Monocytes # (auto) 1.06 K/uL (0.11-0.59); Monocytes % (auto) 13.8 %; Neutrophils # (auto) 4.71 K/uL (1.40-6.50); Neutrophils % (auto) 61.5 %; Platelet Count 194 K/uL (130-400); RDW Coefficient of Variation 14.2 % (11.5-14.5); RDW Standard Deviation 46.2 fL (36.4-46.3); Red Blood Count 5.04 M/uL (4.70-6.10); White Blood Count 7.66 K/ul (4.8-10.8)
[2023-08-04 07:07] LABS: BUN Creatinine Ratio 20.6 (10-20); Calcium 9.1 mg/dl (8.6-10.3); Creatinine Clr Calc Pharmacy 41.9 ml/min; Est GFR (African American) 40.3 ml/min; Est GFR (Non-African American) 34.8 ml/min; Magnesium 1.8 mg/dl (1.7-2.4); Potassium 4.1 mmol/L (3.5-5.1)
[2023-08-04] MEDS: ADVANCED PROBIOTIC 1250 MG CAPSULE PO SCH (08:38)
[2023-08-04] MEDS: LORATADINE 10 MG TAB PO SCH (08:38)
[2023-08-04] MEDS: APIXABAN 2.5 MG TAB PO SCH (08:38)
[2023-08-04] MEDS: CYANOCOBALAMIN (B-12) 500 MCG TABLET PO SCH (08:38)
[2023-08-04] MEDS: DOXYCYCLINE HYCLATE 50 MG CAP PO SCH (08:38)
[2023-08-04] MEDS: METOPROLOL SUCC 25MG EXT REL TAB PO SCH (08:38)
--- NOTE | 2023-08-04 13:15 | Hospitalist Progress Note ---
Date of Service August 04, 2023 Assessment & Plan (1) Suicidal ideations: Plan: Seems resolved for the last few days Suicide precautions have been taken (2) Depression with anxiety: Plan: Admit to [facility] with telemetry Patient presenting from home with reports of lightheadedness which has been an ongoing issue for the past several months. Also reports ongoing feelings of depression with suicidal ideations. Patient states he has a gun and knife in the house which no one else knows about. Denies suicidal attempt. Timeline of psychiatric medication changes as outlined in HPI Follows with psychiatrist Dr. Monk with [facility] Suicide precautions, one-to-one observation Psychiatry consult-appreciate input and recommendation Advised to have mirtazapine 30 mg p.o. every afternoon and increase the dose to 45 mg if there is no excessive sedation and or appetite Will check vitamin D level as advised He has been sleeping well and feeling better Vitamin D level has been low at 18.6-will give supplement Has been getting vitamin D 50,000 unit weekly for 6 weeks and followed by daily doses of around 400 and He has been having drowsiness and has been sleeping a lot at night Will decrease mirtazepine to 15 mg daily He has been feeling much better taking only 50 mg of moderate supine at nighttime Does not feel too drowsy and has been sleeping reasonably well He will be discharged home this afternoon Middle ear fluid on the left side We will try Claritin Middle ear is feeling better (3) Lightheadedness: Plan: Likely secondary to orthostatic hypotension Has been getting physical therapy and doing very well Did very well with PT and OT-doing very well with PT and OT and has been ambulating in the hallway with a walker without any other help No more lightheadedness (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 In the past, patient's metoprolol and torsemide doses have been reduced in an attempt to control lightheadedness. Patient also routinely wears compression stockings. 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 Discussed with vascular surgery Sheyla Olivier PA-C. Patient will need outpatient follow-up. Noted that patient is already anticoagulated with Eliquis for history of atrial fibrillation. Continue to monitor orthostatic BPs Symptoms may be due to multiple psychiatric medication changes (5) Elevated troponin: Plan: History of chronic troponin elevation HS troponin 42.8 --> 36.6; slightly higher than recent readings No reports of chest pain, EKG without acute ST changes Continue to trend troponin. Consider additional workup if further elevation. Doubt any ACS (6) Chronic atrial fibrillation: Plan: Rate controlled on metoprolol, anticoagulated on Eliquis Rate to have short runs of VT x 2 Will increase the dose of metoprolol to twice daily No more arrhythmias (7) HFrEF (heart failure with reduced ejection fraction): Plan: EF 50% on echo 12/2022 Appears euvolemic, utilizes torsemide on an as-needed basis (8) Stage III chronic kidney disease: Plan: Baseline creatinine low-mid 1s Creatinine 1.3 today Monitor renal functions (9) MYRON (obstructive sleep apnea): Plan: CPAP as per home settings (10) BPH NOS w ur obs/LUTS: Plan: Continue tamsulosin DVT PROPHYLAXIS On Eliquis Did very well with physical therapy and will be discharged home with home health Admission and Anticipated Discharge Date Admission Date: August 01, 2023 Subjective 07/31/2023 The patient was seen and examined in emergency room He has been stable today and denies any significant symptoms Has chronic symptoms of lightheadedness/fuzzy feeling in the head with or without ambulation 08/01/2023 The patient was seen and examined in medical telemetry unit He has been complaining of left ear filled with water but has not been having any pain and/or deafness Denies any other symptoms 08/02/2023 The patient was seen and examined in medical telemetry unit He has been feeling better and is left ear seems to be improved No suicidal ideation and does not require any more suicide cautions Asking when he can be discharged 08/03/2023 The patient was seen and examined in medical telemetry unit He has been sleeping a lot and feels a little drowsy this morning He feels that he has been getting more medicine that he needs 08/04/2023 The patient was seen and examined in medical telemetry unit He has been feeling much better and denies any symptoms He has been ambulating in the hallway without any symptoms and is doing it independently He will be discharged home this afternoon with home health Review of Systems Review of Systems: All systems reviewed and are unremarkable except as noted below Physical Exam Physical Exam: Sitting at the edge of the bed without any acute distress Constitutional: well developed, well nourished, + ill appearing and + obese Eyes: PERRL, conjunctivae normal, anicteric sclerae ENMT: external ear and nose normal, oropharynx normal Ears: + TM abnormal ity (Bulging of left tympanic membrane likely secondary to middle ear fluid); no hearing impairment Neck: trachea midline, no thyromegaly Respiratory: no respiratory distress Auscultation: lungs clear to auscultation bilaterally Cardiovascular: Rate/Rhythm: regular rate and regular rhythm; not tachycardic Gastrointestinal (Abdomen): Inspection/Auscultation: normal bowel sounds; abdomen not distended Percussion/Palpation: abdomen soft; abdomen nontender Neurologic: normal touch/pain/proprioception and moves all extremities; no focal motor deficits Lymphatic: no cervical or axillary lymphadenopathy Results & Data Results & Data Vital Signs (Past 12 Hours) Vital Signs Temp Pulse Pulse Resp BP Pulse Ox O2 Del Method 08/04/23 11:35 36.4 C L 83 18 107/67 94 Room Air 08/04/23 07:51 36.5 C 91 H 18 123/79 97 Room Air 08/04/23 07:49 86 08/04/23 07:42 Room Air 08/04/23 03:41 36.6 C 89 16 116/70 97 Room Air Laboratory Results Short CBC 08/04/23 Range/Units 06:17 WBC 7.66 (4.8-10.8) K/ul Hgb 15.0 (14.0-18.0) g/dl Hct 44.8 (42.0-52.0) % Plt Count 194 (130-400) K/uL BMP 08/04/23 06:17 Sodium 138 Potassium 4.1 Chloride 106 Carbon Dioxide 26 BUN 37 H Creatinine 1.80 H Glucose 94 Calcium 9.1 Medications Administered Current Inpatient Medications Acetaminophen (Acetaminophen 325 Mg Tab) 650 mg PO Q4H PRN PRN Reason: Pain or Fever Stop: 08/29/23 10:13 Last Admin: 07/30/23 16:42 Dose: 650 mg Apixaban (Apixaban 2.5 Mg Tab) 2.5 mg PO BID ALEKSANDRA Stop: 08/29/23 11:59 Last Admin: 08/04/23 08:38 Dose: 2.5 mg Cyanocobalamin (Cyanocobalamin (B-12) 500 Mcg Tablet) 1,000 mcg PO DAILY ALEKSANDRA Stop: 08/29/23 11:59 Last Admin: 08/04/23 08:38 Dose: 1,000 mcg Doxycycline Hyclate (Doxycycline Hyclate 50 Mg Cap) 50 mg PO DAILY ALEKSANDRA Stop: 08/29/23 11:59 Last Admin: 08/04/23 08:38 Dose: 50 mg Ergocalciferol (Ergocalciferol 50,000 Units 1250 Mcg Cap) 50,000 units PO Q7D ALEKSANDRA Stop: 08/31/23 16:59 Last Admin: 08/01/23 17:48 Dose: 50,000 units Hyoscyamine (Hyoscyamine Sulfate 0.125 Mg Tab) 0.125 mg PO Q4 PRN PRN Reason: Abdominal Pain Stop: 08/29/23 10:13 Lactobacillus Acidophilus (Advanced Probiotic 1250 Mg Capsule) 2 cap PO DAILY ALEKSANDRA Stop: 08/30/23 11:59 Last Admin: 08/04/23 08:38 Dose: 2 cap Loratadine (Loratadine 10 Mg Tab) 10 mg PO QAM ALEKSANDRA Stop: 08/31/23 16:59 Last Admin: 08/04/23 08:38 Dose: 10 mg Lorazepam (Lorazepam 0.5 Mg Tab) 0.5 mg PO QID PRN PRN Reason: Anxiety Stop: 08/29/23 10:13 Last Admin: 08/02/23 23:14 Dose: 0.5 mg Metoprolol Succinate (Metoprolol Succ 25mg Ext Rel Tab) 12.5 mg PO BID ALEKSANDRA Stop: 09/02/23 20:59 Last Admin: 08/04/23 08:38 Dose: 12.5 mg Mirtazapine (Mirtazapine Tab 15 Mg Tab) 15 mg PO HS ALEKSANDRA Stop: 09/02/23 20:59 Last Admin: 08/03/23 21:27 Dose: 15 mg Tamsulosin HCl (Tamsulosin Hcl 0.4 Mg Cap) 0.4 mg PO HS ALEKSANDRA Stop: 08/29/23 20:59 Last Admin: 08/03/23 21:28 Dose: 0.4 mg Torsemide (Torsemide 10 Mg Tab) 10 mg PO DAILY PRN PRN Reason: Edema Stop: 08/29/23 10:13 Last Admin: 08/01/23 10:39 Dose: 10 mg
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
== END 2023-08-04 14:09 | disposition home health service (06) | DRG 880 ==
LOC: ED 05:09 → EDINP 05:09 → 2N 07-31 10:15

== ENCOUNTER 2024-08-12 17:16 | Inpatient (IN) ==
--- NOTE | 2024-08-12 17:33 | Emergency Department Note ---
Impression & Plan Acute exacerbation of chronic heart failure, Fluid retention, Bilateral lower extremity edema, Acute hypokalemia, Hypomagnesemia ED Provider Note NAME: PAVEL SEGURA AGE: 83 SEX: M : 1940 ARRIVES VIA: Ambulance INFORMANT: Patient, nursing report ED PROVIDER(S): Buck Mcneal MD CHIEF COMPLAINT: Dizziness MEDICAL DECISION MAKING: Patient presents due to concern for dizziness. IV was established and blood work was obtained. Given the patient's history does sound as though the patient may be suffering from overdiuresis as the patient has had a significant increase in the duration frequency of torsemide as well as the new Aldactone medication which she has been taking 3 days a week. Blood work shows a normal white count hemoglobin and platelet count. The patient's kidney function with creatinine 1.65 which is around the patient's baseline. Potassium 3.3. Magnesium 1.6. TSH normal urinalysis without signs of obvious infection. Chest x-ray does show concerns for volume overload. Given this with his concomitant dizziness and increase in diuretics to be the patient would benefit from inpatient treatment to better titration of his medications. I did speak the on-call hospitalist service Dr. Mccormick and the patient was admitted to the medicine service. Discussion w/ other healthcare providers: None Prior /Outside records reviewed: I reviewed part of a discharge summary from August 05, [address] Cabello. Patient with known history of dyslipidemia MYRON chronic A-fib on Eliquis systolic CHF IBS CKD 3 anxiety depression who presented for dizziness. Differential diagnosis: Benign positional vertigo, dehydration, hypovolemia, anemia, infection, hypoglycemia, electrolyte abnormalities, arrhythmia, tox among others were considered. Diagnostics, as interpreted by me: ECG: Likely A-fib with PVCs noted, ventricular rate of 63 wide QRS, left axis deviation. Cardiac monitoring: An order was placed for continuous cardiac monitoring. The monitor shows a rate of 62 with irregular irregular rhythm. Patient was placed on pulse oximetry Medical decision rules: none Imaging studies: I informally interpreted the patient's chest x-ray does show concern for pulmonary edema with formal report to follow. HPI: Patient presents due to concern for dizziness. The patient states that typically this will happen and go away within about 5 minutes in duration but today it has been persistent. The patient denies any vertiginous symptoms on the lightheadedness/dizziness. No falls or trauma the patient states that his appetite has been appropriate. The patient denies any vomiting or diarrhea and patient denies any chest pains. He states that he cannot walk far at baseline and this is an old issue. The patient does report that he has had about a 10 pound weight gain in the last several days. Patient states that they have been trying to make changes to his medications and instead of taking his torsemide as needed or once to twice a week the patient is taking that every day and was recently started on a new medication to help for fluid retention that he was post to take Friday and Friday. Patient states that he had persistent dizziness today while at PT and thus presented here. The patient denies any cough or fever. The patient does have chronic left lower extremity swelling compared to his right but this has been ongoing for about 1 to 2 years. Patient is anticoagulated on Eliquis. No calf pain. PAST MEDICAL HISTORY: See Below PAST SURGICAL HISTORY: See Below SOCIAL HISTORY: See Below HOME MEDICATIONS: See Below ALLERGIES: See Below VITALS: See Below PHYSICAL EXAMINATION: GENERAL: NAD, non-toxic. EYE EXAM: Normal conjunctiva. PERRL, no anisocoria and EOM's grossly intact w/o pain. OROPHARYNX: Moist mucus membranes, poor dentition. NECK: Trachea midline, no stridor. Supple, no nuchal rigidity, no adenopathy, non-tender. No signs of meningismus. FROM of the neck with good chin to chest and neck extension. LUNGS: Bibasilar crackles. Normal chest wall mechanics. HEART: Irregularly irregular, no MRG. ABDOMEN: Abdomen soft, non-tender, no masses, no rebound or guarding. BACK: No CVA TTP. SKIN: No rashes and no bruising. UPPER EXTREMITIES: Upper extremities are grossly normal. LOWER EXTREMITIES: Left greater than right lower extremity swelling with associated edema. NEURO EXAM: A&O x3, cranial nerves II-XII grossly intact, normal speech, moves all 4 extremities. Past Med/Surg History Problem List (Updated 08/12/24 @ 22:08 by Buck Mcneal MD) Hypomagnesemia (Acute) Acute hypokalemia (Acute) Bilateral lower extremity edema (Acute) Fluid retention (Acute) Acute exacerbation of chronic heart failure (Acute) Acute on chronic systolic (congestive) heart failure Left patella fracture Hemorrhagic prepatellar bursitis of left knee Incomplete emptying of bladder Hematuria MARIA C (generalized anxiety disorder) Major depressive disorder Elevated troponin Internal carotid artery thrombosis Suicidal ideations Chronic atrial fibrillation Lightheadedness (Acute) Depression with anxiety MYRON (obstructive sleep apnea) HFrEF (heart failure with reduced ejection fraction) snf (current) use of anticoagulants (Acute) Gastroesophageal reflux disease 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 Furosemide decreased to 20 mg/day on discharge. 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 Hypertension Hyperlipidemia Hearing deficit BILATERAL AIDES Vertigo IBS (irritable bowel syndrome) Medical History Chronic systolic (congestive) heart failure Dementia without behavioral disturbance Stage 3b chronic kidney disease Hypersomnolence disorder Essential tremor Dyslipidemia MYRON on CPAP Hx of colonic polyp Vitamin D deficiency Pernicious anemia Lumbar spondylosis with myelopathy Rosacea On anticoagulant therapy Anxiety and depression Hx of gout LBBB (left bundle branch block) CHRONIC Asthma STABLE Osteoarthritis Sciatica BPH (benign prostatic hyperplasia) Diverticular disease DIVERTICULITIS S/P PERFORATION/COLON RESECTION (2005) GERD (gastroesophageal reflux disease) Surgical History History of cataract surgery RT History of arthroplasty of right knee History of colonoscopy 2020 History of esophagogastroduodenoscopy (EGD) 2020 History of appendectomy History of colostomy reversal History of bowel resection DIVERTICULITIS S/P PERFORATION/COLON RESECTION (2005) History of endoscopic sinus surgery Right side-Dr. Yuan History of tonsillectomy Family History Mother Family hx of colon cancer Family history of diabetes mellitus Social History Smoking Status: Former smoker Tobacco Type: Cigarettes packs per day: 0.5; Smoking End Date: smoked from age [age]; Second Hand Exposure: No; Do You Dip or Chew Tobacco: No; Hx Alcohol Use: No Hx Substance Use: No Preferred Language: Belarusian Communication Ability: Effective Visual Impairment: Limited Hearing Ability: Use of Hearing Aid Filter Cleaner Required: No Beliefs That Will Affect Care: None marital status: unknown marital status details: Engaged Current Living Situation: Significant Other Current Living Situation Comment: lives w/ significant other Laura How many Children do You have: 2 Other Information That Helps Us Care for You: No other: Brother Matthieu is medical power of deputy prosecuting attorney, Feels Safe at Home: Yes Safety Concerns: Feels Safe At This Time Childhood Exposure to Second-Hand Smoke: No Diet: ideal protein and low salt Diet Comment: Low fat Gender Identity: Male Assistive Devices: Cane, CPAP, Denture - Upper, Denture - Lower, Glasses and Hearing Aid - Bilateral Allergies Allergies Allergy/AdvReac Type Severity Reaction Status Date / Time house dust AdvReac Mild Congested Verified 02/18/24 14:31 Home Meds Home Medications Medication Instructions Recorded Confirmed apixaban 2.5 mg tablet (Eliquis) 2.5 mg PO AMHS 05/17/20 08/12/24 tamsulosin 0.4 mg capsule 0.4 mg PO HS 11/05/22 08/12/24 cyanocobalamin (vitamin B-12) 1,000 mcg sublingual QAM 04/07/23 08/12/24 1,000 mcg sublingual tablet fluticasone propionate 50 1 spray intranasal QAM 04/07/23 08/12/24 mcg/actuation nasal spray,suspension ipratropium bromide 42 mcg (0.06 2 spray intranasal TID PRN 04/07/23 08/12/24 %) nasal spray allergies lactobacillus combination no.4 3 3,000 mmu cells PO DAILY 07/30/23 08/12/24 billion cell capsule (Probiotic) erythromycin with ethanol 2 % 1 applic topical DAILY 11/14/23 08/12/24 topical swab (Mckinley Pads) lorazepam 1 mg tablet 0.5 - 1 mg PO TID PRN Anxiety 11/14/23 08/12/24 meclizine 25 mg tablet 25 mg PO TID PRN Vertigo 11/14/23 08/12/24 pantoprazole 40 mg tablet,delayed 40 mg PO BIDM 11/14/23 08/12/24 release bupropion HCl 150 mg 24 hr tablet, 150 mg PO QAM 08/12/24 08/12/24 extended release cholestyramine (with sugar) 4 gram 4 g PO .MID AFTERNOON 08/12/24 08/12/24 powder for susp in a packet clindamycin phosphate 1 % topical 1 applic topical DAILY PRN FACE 08/12/24 08/12/24 swab doxycycline monohydrate 50 mg 50 mg PO DAILY 08/12/24 08/12/24 capsule dutasteride 0.5 mg capsule 0.5 mg PO QAM 08/12/24 08/12/24 ergocalciferol (vitamin D2) 1,250 50,000 unit PO WK 08/12/24 08/12/24 mcg (50,000 unit) capsule hyoscyamine sulfate 0.125 mg 0.125 mg PO Q4 PRN Abdominal Pain 08/12/24 08/12/24 sublingual tablet metoprolol succinate 25 mg 12.5 mg PO AMHS 08/12/24 08/12/24 tablet,extended release 24 hr spironolactone 25 mg tablet 12.5 mg PO 3XWK 08/12/24 08/12/24 torsemide 10 mg tablet 5 - 10 mg PO 2XWK PRN Edema 08/12/24 08/12/24 Results & Data (ED) Vital Signs Vital Signs - 24 hr 08/12/24 17:36 08/12/24 17:36 08/12/24 17:36 Temperature 36.7 C Temperature Source Oral Pulse Rate 70 Pulse Rate [Apical] Pulse Rhythm [Apical] Pulse Strength [Apical] Respiratory Rate 22 Respiratory Effort / Characteristics Respiratory Depth Normal Normal Respiratory Pattern Blood Pressure 146/85 H Blood Pressure [Right Arm] Blood Pressure Mean 105 Blood Pressure Mean [Right Arm] Blood Pressure Position [Right Arm] Pulse Oximetry 97 Oxygen Delivery Method Room Air Room Air Room Air Sepsis Recent Fever Within 48 Hours No Sepsis New/Unexplained Change in Mental Status No Sepsis Action Taken by Nursing No Action Required 08/12/24 17:45 08/12/24 18:10 08/12/24 18:28 Temperature Temperature Source Pulse Rate 63 Pulse Rate [Apical] 59 L Pulse Rhythm [Apical] Pulse Strength [Apical] Respiratory Rate 20 Respiratory Effort / Characteristics Respiratory Depth Normal Respiratory Pattern Blood Pressure Blood Pressure [Right Arm] 124/69 Blood Pressure Mean Blood Pressure Mean [Right Arm] 87 Blood Pressure Position [Right Arm] Pulse Oximetry 95 Oxygen Delivery Method Room Air Room Air Sepsis Recent Fever Within 48 Hours Sepsis New/Unexplained Change in Mental Status Sepsis Action Taken by Nursing 08/12/24 20:00 Temperature Temperature Source Pulse Rate Pulse Rate [Apical] 87 Pulse Rhythm [Apical] Regular Pulse Strength [Apical] Normal Respiratory Rate 18 Respiratory Effort / Characteristics Non-Labored Spontaneous Respiratory Depth Normal Respiratory Pattern Regular Blood Pressure Blood Pressure [Right Arm] 133/77 Blood Pressure Mean Blood Pressure Mean [Right Arm] 95 Blood Pressure Position [Right Arm] Sitting Pulse Oximetry 98 Oxygen Delivery Method Room Air Sepsis Recent Fever Within 48 Hours Sepsis New/Unexplained Change in Mental Status Sepsis Action Taken by Mcc Medications Current Medication List: was personally reviewed by me Laboratory Data Attestation: I reviewed the patient's lab results. 08/12/24 17:30 08/12/24 17:30 Lab Results 08/12/24 08/12/24 Range/Units 17:30 19:10 WBC 6.63 (4.8-10.8) K/ul RBC 5.15 (4.70-6.10) M/uL Hgb 15.2 (14.0-18.0) g/dl Hct 47.1 (42.0-52.0) % MCV 91.5 (80.0-100.0) fL MCH 29.5 (25.0-34.0) pg MCHC 32.3 (32.0-36.0) g/dL RDW Std Deviation 51.0 H (36.4-46.3) fL RDW Coeff of Henry 15.0 H (11.5-14.5) % Plt Count 155 (130-400) K/uL MPV 10.8 (9.4-12.4) fL Immature Gran % (Auto) 0.2 % Neut % (Auto) 61.4 % Lymph % (Auto) 23.4 % Jefferson % (Auto) 11.5 % Eos % (Auto) 3.0 % Baso % (Auto) 0.5 % Neut # (Auto) 4.08 (1.40-6.50) K/uL Lymph # (Auto) 1.55 (1.20-3.40) K/uL Jefferson # (Auto) 0.76 H (0.11-0.59) K/uL Eos # (Auto) 0.20 (0.00-0.50) K/uL Baso # (Auto) 0.03 (0.00-0.20) K/uL Immature Gran # (Auto) 0.01 (0.01-0.20) K/uL Sodium 142 (136-145) mmol/L Potassium 3.3 L (3.5-5.1) mmol/L Chloride 104 (98-107) mmol/L Carbon Dioxide 31 (21-32) mmol/L Anion Gap 7 (3-11) BUN 30 H (6-23) mg/dl Creatinine 1.65 H (0.6-1.4) mg/dl Est Cr Clr Drug Dosing Not Reportable eGFR 41.46 BUN/Creatinine Ratio 18.2 (10-20) Glucose 93 (70-99(Fasting)) mg/dl Calcium 9.1 (8.6-10.3) mg/dl Magnesium 1.6 L (1.7-2.4) mg/dl Total Bilirubin 1.3 H (0.2-1.0) mg/dl AST 18 (13-39) U/L ALT 10 (7-52) U/L Alkaline Phosphatase 139 H (34-104) U/L Total Protein 7.1 (6.0-8.3) gm/dl Albumin 3.9 (3.4-5.0) gm/dl Globulin 3.2 (2.5-4.0) gm/dl Albumin/Globulin Ratio 1.2 (0.9-2) TSH 2.457 (0.300-4.500) uIu/ml Urine Color Yellow Urine Appearance Clear (Clear) Urine pH 5.0 (4.5-7.5) Ur Specific Taylor 1.009 (1.000-1.030) Urine Protein Negative (Negative) Urine Glucose (UA) Negative (Negative) Urine Ketones Negative (Negative) Urine Blood Negative (Negative) Urine Nitrite Negative (Negative) Urine Bilirubin Negative (Negative) Urine Urobilinogen Negative (Negative) Ur Leukocyte Esterase Negative (Negative) Administered Medications Apixaban (Apixaban 2.5 Mg Tab) 2.5 mg PO BID ALEKSANDRA Stop: 09/11/24 21:09 Last Admin: 08/12/24 21:50 Dose: 2.5 mg Documented By: ZENA Magnesium Sulfate/Dextrose (Magnesium Sulfate / D5w) 1 gm in 100 mls @ 50 mls/hr IV Q2H ALEKSANDRA Stop: 08/13/24 01:29 Last Admin: 08/12/24 22:02 Dose: 50 mls/hr Documented By: DM Metoprolol Succinate (Metoprolol Succ 25mg Ext Rel Tab) 12.5 mg PO BID ALEKSANDRA Stop: 09/11/24 21:09 Last Admin: 08/12/24 21:49 Dose: 12.5 mg Documented By: DM Tamsulosin HCl (Tamsulosin Hcl 0.4 Mg Cap) 0.4 mg PO HS ALEKSANDRA Stop: 09/11/24 21:09 Last Admin: 08/12/24 21:51 Dose: 0.4 mg Documented By: DM Discontinued Medications Furosemide (Furosemide Inj 20 Mg/2 Ml Vial) 20 mg IV ONE ONE Stop: 08/12/24 21:11 Last Admin: 08/12/24 21:50 Dose: 20 mg Documented By: ZENA Potassium Chloride (Potassium Chloride Crtab 20 Meq Tabcr) 40 meq PO NOW STA Stop: 08/12/24 21:11 Last Admin: 08/12/24 21:49 Dose: 40 meq Documented By: ZENA Imaging Data Radiologist's Impression: Chest X-Ray 08/12/24 17:42 EXAM: X-ray chest one-view portable CLINICAL HISTORY: Chest pain PRIORS: None TECHNIQUE: Upright AP view chest FINDINGS: The chest is well-expanded. Prominence of the central pulmonary vasculature noted. Cardiac silhouette is moderately enlarged. No pneumothorax. Right costophrenic angle is omitted. Trachea is patent. Osseous structures demonstrate no acute abnormality. No radiopaque foreign body. IMPRESSION: Radiographic features favoring volume overload with moderate enlargement of the cardiac silhouette. Electronically signed by Aure Li 08-12-2024 6:06 PM Discharge Plan Visit Data Chief Complaint: Dizziness ED Provider: Buck Mcneal Discharge Problem: Acute exacerbation of chronic heart failure, Fluid retention, Bilateral lower extremity edema, Acute hypokalemia, Hypomagnesemia Patient Disposition: Admitted As Inpatient Discharge Instructions Interventions: ED Discharge Assessment Last Done: 08/12/24 20:49
[2024-08-12 17:59] LABS: Basophils # (auto) 0.03 K/uL (0.00-0.20); Basophils % (auto) 0.5 %; Hematocrit (blood only) 47.1 % (42.0-52.0); Hemoglobin 15.2 g/dl (14.0-18.0); Immature Granulocytes # (auto) 0.01 K/uL (0.01-0.20); Immature Granulocytes % (auto) 0.2 %; Lymphocytes # (auto) 1.55 K/uL (1.20-3.40); Lymphocytes % (auto) 23.4 %; Mean Corpuscular Hemoglobin 29.5 pg (25.0-34.0); Mean Corpuscular Hgb Conc 32.3 g/dL (32.0-36.0); Mean Corpuscular Volume 91.5 fL (80.0-100.0); Mean Platelet Volume 10.8 fL (9.4-12.4); Monocytes # (auto) 0.76 K/uL (0.11-0.59); Monocytes % (auto) 11.5 %; Neutrophils # (auto) 4.08 K/uL (1.40-6.50); Neutrophils % (auto) 61.4 %; Platelet Count 155 K/uL (130-400); Red Blood Count 5.15 M/uL (4.70-6.10); White Blood Count 6.63 K/ul (4.8-10.8)
--- NOTE | 2024-08-12 18:06 | XRay Report ---
EXAM: X-ray chest one-view portable CLINICAL HISTORY: Chest pain PRIORS: None TECHNIQUE: Upright AP view chest FINDINGS: The chest is well-expanded. Prominence of the central pulmonary vasculature noted. Cardiac silhouette is moderately enlarged. No pneumothorax. Right costophrenic angle is omitted. Trachea is patent. Osseous structures demonstrate no acute abnormality. No radiopaque foreign body. IMPRESSION: Radiographic features favoring volume overload with moderate enlargement of the cardiac silhouette. Electronically signed by Aure Li 08-12-2024 6:06 PM
[2024-08-12 18:11] LABS: Alanine Aminotransferase 10 U/L (7-52); Albumin Globulin Ratio 1.2 (0.9-2); Albumin Level 3.9 gm/dl (3.4-5.0); Alkaline Phosphatase 139 U/L (34-104); Anion Gap 7 (3-11); Aspartate Aminotransferase 18 U/L (13-39); BUN Creatinine Ratio 18.2 (10-20); Bilirubin,Total 1.3 mg/dl (0.2-1.0); Blood Urea Nitrogen 30 mg/dl (6-23); Calcium 9.1 mg/dl (8.6-10.3); Carbon Dioxide 31 mmol/L (21-32); Chloride 104 mmol/L (98-107); Globulin 3.2 gm/dl (2.5-4.0); Glucose 93 mg/dl (70-99(Fasting)); Magnesium 1.6 mg/dl (1.7-2.4); Potassium 3.3 mmol/L (3.5-5.1); Sodium 142 mmol/L (136-145); Total Protein 7.1 gm/dl (6.0-8.3)
[2024-08-12 18:25] LABS: Thyroid Stimulating Hormone 2.457 uIu/ml (0.300-4.500)
[2024-08-12 19:22] LABS: Appearance Urine Clear (Clear); Bilirubin Urine Negative (Negative); Blood Urine Negative (Negative); Color Urine Yellow; Glucose Urine UA Negative (Negative); Ketones Urine Negative (Negative); Leukocyte Esterase Urine Negative (Negative); Nitrite Urine Negative (Negative); Protein Urine Negative (Negative); Specific Gravity Urine 1.009 (1.000-1.030); Urobilinogen Urine Negative (Negative)
[2024-08-12] MEDS ORDERED: IPRATROPIUM BROMIDE NASAL SPRAY 0.06% 15ML PRN (21:10)
[2024-08-12] MEDS ORDERED: POLYETHYLENE (MIRALAX) 17 GM PACK PO PRN (21:10)
[2024-08-12] MEDS ORDERED: NITROGLYCERIN SL 0.4 MG/TAB TAB SL PRN (21:10)
[2024-08-12] MEDS ORDERED: ACETAMINOPHEN 325 MG TAB PO PRN (21:10)
[2024-08-12] MEDS ORDERED: HYOSCYAMINE SULFATE 0.125 MG TAB PO PRN (21:24)
--- NOTE | 2024-08-12 21:46 | History & Physical Report ---
Date of Service August 12, 2024 Assessment & Plan (1) Acute on chronic systolic (congestive) heart failure: Plan: 83-year-old male with past medical history significant for dyslipidemia, hyperparathyroidism, nonallergic rhinitis, obstructive sleep apnea, periodic breathing, chronic atrial fibrillation, chronic systolic CHF, vitamin D deficiency, irritable bowel syndrome, CKD stage III, lumbar spondylosis, sacroiliitis, essential tremor, pernicious anemia, adjustment disorder with depressed mood, rosacea, generalized anxiety disorder, major depression, hypersomnolence disorder, periodic limb movement disorder who lives with his friend and ambulates with cane comes because of dizziness and lightheadedness. Patient says he gets dizzy for few minutes but today it was persistent when he decided come to the ER. Currently while sitting in the bed states his dizziness is better.Currently denies any spinning of the room. Sometimes gets mild headaches but currently denies any headache. No blurred vision. Always has a runny nose. No sore throat. Has some cough. No fevers. Denies any chest pain. No shortness of breath. No nausea. No abdominal pain. Appetite is okay. No difficulty swallowing. Somewhat constipated. Denies any blood in the stool or black stools. Micturating okay. States he gained about 10 pounds in 1 week and saw cardiology recently and his torsemide which he used to take as needed or once or twice a week was advised to take daily and also Aldactone 12.5 mg Fridays was added and so far he took 2 doses of Aldactone. He thinks he lost about 5 pounds of weight so far. As per recent cardiology notes he had ZIO monitor in July 2024 which showed occasional couplets, triplets and 5 runs of V. tach. His echo on July 12, 2024 showed EF of 35 to 39% which was 50 to 54% in December 2022. Because of changes seen in EF and also VT on ZIO monitor there is plan to refer to electrophysiology and also for Lexiscan nuclear stress testing. Patient says since he started new diuretics there is a plan to check labs coming Friday. Currently resting comfortably and hemodynamically stable. Acute on chronic systolic CHF Recent echo EF 35 to 39% which was 50-54% December 2022 Currently patient is taking torsemide 10 mg daily which he used to take as needed and also started on Aldactone 12.5 mg p.o. 3 times a week His lower extremity edema improved Chest x-ray still shows some congestion Will give way dose of Lasix IV 20 mg and hold his home p.o. diuretics for now Daily weights and I's and O's Follow repeat echo Telemetry Further diuretics as per cardiology Dizziness Recent increase in diuretics Symptoms better now Will monitor in telemetry Abnormal EKG We will follow troponins Will follow echo Orthostatics There is a plan for Lexiscan nuclear test and also electrophysiology evaluation Cardiology consulted Obstructive sleep apnea On CPAP nightly Chronic atrial fibrillation Continue metoprolol succinate and Eliquis Depression Generalized anxiety disorder On bupropion Ativan as needed GERD On Protonix BPH On dutasteride and Flomax CKD stage III Presented with creatinine 1.6 which is around baseline We will monitor Pernicious anemia On vitamin B12 Rosacea On doxycycline IBS Currently constipated Stool softeners as needed DVT prophylaxis On Eliquis Disposition Telemetry Full code. History of Present Illness Chief Complaint: Dizziness Primary Care Provider: Eamon Felder DO 83-year-old male with past medical history significant for dyslipidemia, hyperparathyroidism, nonallergic rhinitis, obstructive sleep apnea, periodic breathing, chronic atrial fibrillation, chronic systolic CHF, vitamin D defici ency, irritable bowel syndrome, CKD stage III, lumbar spondylosis, sacroiliitis, essential tremor, pernicious anemia, adjustment disorder with depressed mood, rosacea, generalized anxiety disorder, major depression, hypersomnolence disorder, periodic limb movement disorder who lives with his friend and ambulates with cane comes because of dizziness and lightheadedness. Patient says he gets dizzy for few minutes but today it was persistent when he decided come to the ER. Currently while sitting in the bed states his dizziness is better.Currently denies any spinning of the room. Sometimes gets mild headaches but currently denies any headache. No blurred vision. Always has a runny nose. No sore throat. Has some cough. No fevers. Denies any chest pain. No shortness of breath. No nausea. No abdominal pain. Appetite is okay. No difficulty swallowing. Somewhat constipated. Denies any blood in the stool or black stools. Micturating okay. States he gained about 10 pounds in 1 week and saw cardiology recently and his torsemide which he used to take as needed or once or twice a week was advised to take daily and also Aldactone 12.5 mg Fridays was added and so far he took 2 doses of Aldactone. He thinks he lost about 5 pounds of weight so far. As per recent cardiology notes he had ZIO monitor in July 2024 which showed occasional couplets, triplets and 5 runs of V. tach. His echo on July 12, 2024 showed EF of 35 to 39% which was 50 to 54% in December 2022. Because of changes seen in EF and also VT on ZIO monitor there is plan to refer to electrophysiology and also for Lexiscan nuclear stress testing. Patient says since he started new diuretics there is a plan to check labs coming Friday. Currently resting comfortably and hemodynamically stable. Past medical history. As mentioned above Past surgical history. Colonoscopy. EGD. EGD with biopsy. EGD with endoscopic ultrasound. Expiratory laparotomy sigmoid colon resection and Stan tman's procedure in November 2011. Laparoscopic lysis of adhesions and closure of colostomy and colon resection in February 2012. Injection of lumbosacral spine appendectomy. Tonsillectomy. Sinus surgery. Social history. Quit smoking 1979. Smoked 0.8 packs a day for 20 years. No alcohol use. No drug use. Family history. Mother had colon cancer. Father had multiple strokes. Allergies Allergy/AdvReac Type Severity Reaction Status Date / Time house dust AdvReac Mild Congested Verified 02/18/24 14:31 Home Medications Medication Instructions Recorded Confirmed Type apixaban 2.5 mg tablet (Eliquis) 2.5 mg PO AMHS 05/17/20 08/12/24 History tamsulosin 0.4 mg capsule 0.4 mg PO HS 11/05/22 08/12/24 History cyanocobalamin (vitamin B-12) 1,000 mcg sublingual QAM 04/07/23 08/12/24 History 1,000 mcg sublingual tablet fluticasone propionate 50 1 spray intranasal QAM 04/07/23 08/12/24 History mcg/actuation nasal spray,suspension ipratropium bromide 42 mcg (0.06 2 spray intranasal TID PRN 04/07/23 08/12/24 History %) nasal spray allergies lactobacillus combination no.4 3 3,000 mmu cells PO DAILY 07/30/23 08/12/24 History billion cell capsule (Probiotic) erythromycin with ethanol 2 % 1 applic topical DAILY 11/14/23 08/12/24 History topical swab (M[place]inley Pads) lorazepam 1 mg tablet 0.5 - 1 mg PO TID PRN Anxiety 11/14/23 08/12/24 History meclizine 25 mg tablet 25 mg PO TID PRN Vertigo 11/14/23 08/12/24 History pantoprazole 40 mg tablet,delayed 40 mg PO BIDM 11/14/23 08/12/24 History release bupropion HCl 150 mg 24 hr tablet, 150 mg PO QAM 08/12/24 08/12/24 History extended release cholestyramine (with sugar) 4 gram 4 g PO .MID AFTERNOON 08/12/24 08/12/24 History powder for susp in a packet clindamycin phosphate 1 % topical 1 applic topical DAILY PRN FACE 08/12/24 08/12/24 History swab doxycycline monohydrate 50 mg 50 mg PO DAILY 08/12/24 08/12/24 History capsule dutasteride 0.5 mg capsule 0.5 mg PO QAM 08/12/24 08/12/24 History ergocalciferol (vitamin D2) 1,250 50,000 unit PO WK 08/12/24 08/12/24 History mcg (50,000 unit) capsule hyoscyamine sulfate 0.125 mg 0.125 mg PO Q4 PRN Abdominal Pain 08/12/24 08/12/24 History sublingual tablet metoprolol succinate 25 mg 12.5 mg PO AMHS 08/12/24 08/12/24 History tablet,extended release 24 hr spironolactone 25 mg tablet 12.5 mg PO 3XWK 08/12/24 08/12/24 History torsemide 10 mg tablet 5 - 10 mg PO 2XWK PRN Edema 08/12/24 08/12/24 History Past Med/Surg History Problem List (Updated 08/12/24 @ 22:08 by Buck Mcneal MD) Hypomagnesemia (Acute) Acute hypokalemia (Acute) Bilateral lower extremity edema (Acute) Fluid retention (Acute) Acute exacerbation of chronic heart failure (Acute) Acute on chronic systolic (congestive) heart failure Left patella fracture Hemorrhagic prepatellar bursitis of left knee Incomplete emptying of bladder Hematuria MARIA C (generalized anxiety disorder) Major depressive disorder Elevated troponin Internal carotid artery thrombosis Suicidal ideations Chronic atrial fibrillation Lightheadedness (Acute) Depression with anxiety MYRON (obstructive sleep apnea) HFrEF (heart failure with reduced ejection fraction) 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 Furosemide decreased to 20 mg/day on discharge. 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 Hypertension Hyperlipidemia Hearing deficit BILATERAL AIDES Vertigo IBS (irritable bowel syndrome) Medical History Chronic systolic (congestive) heart failure Dementia without behavioral disturbance Stage 3b chronic kidney disease Hypersomnolence disorder Essential tremor Dyslipidemia MYRON on CPAP Hx of colonic polyp Vitamin D deficiency Pernicious anemia Lumbar spondylosis with myelopathy Rosacea On anticoagulant therapy Anxiety and depression Hx of gout LBBB (left bundle branch block) CHRONIC Asthma STABLE Osteoarthritis Sciatica BPH (benign prostatic hyperplasia) Diverticular disease DIVERTICULITIS S/P PERFORATION/COLON RESECTION (2005) GERD (gastroesophageal reflux disease) Surgical History History of cataract surgery RT History of arthroplasty of right knee History of colonoscopy 2020 History of esophagogastroduodenoscopy (EGD) 2020 History of appendectomy History of colostomy reversal History of bowel resection DIVERTICULITIS S/P PERFORATION/COLON RESECTION (2005) History of endoscopic sinus surgery Right side-Dr. Yuan History of tonsillectomy Family History Mother Family hx of colon cancer Family history of diabetes mellitus Social History Smoking Status: Former smoker Tobacco Type: Cigarettes packs per day: 0.5; Smoking End Date: smoked from age [age]; Second Hand Exposure: No; Do You Dip or Chew Tobacco: No; Hx Alcohol Use: No Hx Substance Use: No Preferred Language: Italian Communication Ability: Effective Visual Impairment: Limited Hearing Ability: Use of Hearing Aid Road Patcher Required: No Beliefs That Will Affect Care: None marital status: unknown marital status details: Engaged Current Living Situation: Significant Other Current Living Situation Comment: lives w/ significant other Laura How many Children do You have: 2 Other Information That Helps Us Care for You: No other: Brother Matthieu is medical power of state's attorney, Feels Safe at Home: Yes Safety Concerns: Feels Safe At This Time Childhood Exposure to Second-Hand Smoke: No Diet: ideal protein and low salt Diet Comment: Low fat Gender Identity: Male Assistive Devices: Cane, CPAP, Denture - Upper, Denture - Lower, Glasses and Hearing Aid - Bilateral Review of Systems Review of Systems: All systems reviewed & are unremarkable except as noted in HPI & below Physical Exam Physical Exam: General- Not in distress Head- atraumatic Eyes- PERRL. ENT- oropharynx clear Neck- supple, no JVD. Lungs- clear to auscultation mild bibasilar crackles, no wheezing Heart- regular rhythm; no murmur, no gallop. Abdomen- normal bowel sounds, soft, nontender, no distension Extremities- trace edema in right lower extremity, +1 edema present in left l ower extremity, No erythema seen Neuro- alert, oriented PERRL, no facial palsy; no dysarthria; moves extremities Results & Data Results & Data Vital Signs (Past 12 Hours) Vital Signs Temp Pulse Pulse Resp BP BP Pulse Ox 08/12/24 18:28 59 L 20 124/69 95 08/12/24 18:10 63 08/12/24 17:45 08/12/24 17:36 08/12/24 17:36 08/12/24 17:36 36.7 C 70 22 146/85 H 97 O2 Del Method 08/12/24 18:28 Room Air 08/12/24 18:10 08/12/24 17:45 Room Air 08/12/24 17:36 Room Air 08/12/24 17:36 Room Air 08/12/24 17:36 Room Air Diagnostic Findings Laboratory Results WBC 6.63 K/ul (4.8-10.8) 12/05/24 17:30 RBC 5.15 M/uL (4.70-6.10) 08/12/24 17:30 Hgb 15.2 g/dl (14.0-18.0) 08/12/24 17:30 Hct 47.1 % (42.0-52.0) 08/12/24 17:30 MCV 91.5 fL (80.0-100.0) 08/12/24 17:30 MCH 29.5 pg (25.0-34.0) 08/12/24 17:30 MCHC 32.3 g/dL (32.0-36.0) 08/12/24 17:30 RDW Std Deviation 51.0 fL (36.4-46.3) H 08/12/24 17:30 RDW Coeff of Henry 15.0 % (11.5-14.5) H 08/12/24 17:30 Plt Count 155 K/uL (130-400) 08/12/24 17:30 MPV 10.8 fL (9.4-12.4) 08/12/24 17:30 Immature Gran % (Auto) 0.2 % 08/12/24 17:30 Neut % (Auto) 61.4 % 08/12/24 17:30 Lymph % (Auto) 23.4 % 08/12/24 17:30 [place] % (Auto) 11.5 % 08/12/24 17:30 Eos % (Auto) 3.0 % 08/12/24 17:30 Baso % (Auto) 0.5 % 08/12/24 17:30 Neut # (Auto) 4.08 K/uL (1.40-6.50) 08/12/24 17:30 Lymph # (Auto) 1.55 K/uL (1.20-3.40) 08/12/24 17:30 [place] # (Auto) 0.76 K/uL (0.11-0.59) H 08/12/24 17:30 Eos # (Auto) 0.20 K/uL (0.00-0.50) 08/12/24 17:30 Baso # (Auto) 0.03 K/uL (0.00-0.20) 08/12/24 17:30 Immature Gran # (Auto) 0.01 K/uL (0.01-0.20) 08/12/24 17:30 Sodium 142 mmol/L (136-145) 08/12/24 17:30 Potassium 3.3 mmol/L (3.5-5.1) L 08/12/24 17:30 Chloride 104 mmol/L (98-107) 08/12/24 17:30 Carbon Dioxide 31 mmol/L (21-32) 08/12/24 17:30 Anion Gap 7 (3-11) 08/12/24 17:30 BUN 30 mg/dl (6-23) H 08/12/24 17:30 Creatinine 1.65 mg/dl (0.6-1.4) H 08/12/24 17:30 Est Cr Clr Drug Dosing Not Reportable 08/12/24 17:30 eGFR 41.46 08/12/24 17:30 BUN/Creatinine Ratio 18.2 (10-20) 08/12/24 17:30 Glucose 93 mg/dl (70-99(Fasting)) 08/12/24 17:30 Calcium 9.1 mg/dl (8.6-10.3) 08/12/24 17:30 Magnesium 1.6 mg/dl (1.7-2.4) L 08/12/24 17:30 Total Bilirubin 1.3 mg/dl (0.2-1.0) H 08/12/24 17:30 AST 18 U/L (13-39) 08/12/24 17:30 ALT 10 U/L (7-52) 08/12/24 17:30 Alkaline Phosphatase 139 U/L (34-104) H 08/12/24 17:30 Total Protein 7.1 gm/dl (6.0-8.3) 08/12/24 17:30 Albumin 3.9 gm/dl (3.4-5.0) 08/12/24 17:30 Globulin 3.2 gm/dl (2.5-4.0) 08/12/24 17:30 Albumin/Globulin Ratio 1.2 (0.9-2) 08/12/24 17:30 TSH 2.457 uIu/ml (0.300-4.500) 08/12/24 17:30 Urine Color Yellow 08/12/24 19:10 Urine Appearance Clear (Clear) 08/12/24 19:10 Urine pH 5.0 (4.5-7.5) 08/12/24 19:10 Ur Specific [place] 1.009 (1.000-1.030) 08/12/24 19:10 Urine Protein Negative (Negative) 08/12/24 19:10 Urine Glucose (UA) Negative (Negative) 08/12/24 19:10 Urine Ketones Negative (Negative) 08/12/24 19:10 Urine Blood Negative (Negative) 08/12/24 19:10 Urine Nitrite Negative (Negative) 08/12/24 19:10 Urine Bilirubin Negative (Negative) 08/12/24 19:10 Urine Urobilinogen Negative (Negative) 08/12/24 19:10 Ur Leukocyte Esterase Negative (Negative) 08/12/24 19:10 Impressions Chest X-Ray 08/12/24 17:42 EXAM: X-ray chest one-view portable CLINICAL HISTORY: Chest pain PRIORS: None TECHNIQUE: Upright AP view chest FINDINGS: The chest is well-expanded. Prominence of the central pulmonary vasculature noted. Cardiac silhouette is moderately enlarged. No pneumothorax. Right costophrenic angle is omitted. Trachea is patent. Osseous structures demonstrate no acute abnormality. No radiopaque foreign body. IMPRESSION: Radiographic features favoring volume overload with moderate enlargement of the cardiac silhouette. Electronically signed by Aure Li 08-12-2024 6:06 PM ECG Additional Comments: ECG. Junctional rhythm with occasional PVCs with ventricular escape complexes. ST abnormalities in inferior lateral leads Code Status & VTE Plan VTE Prophylaxis Plan VTE Prophylaxis will be ordered: Yes
[2024-08-12] MEDS: POTASSIUM CHLORIDE CRTAB 20 MEQ TABCR PO STA (21:49)
[2024-08-12] MEDS: METOPROLOL SUCC 25MG EXT REL TAB PO SCH (21:49)
[2024-08-12] MEDS: FUROSEMIDE INJ 20 MG/2 ML VIAL IV ONE (21:50)
[2024-08-12] MEDS: APIXABAN 2.5 MG TAB PO SCH (21:50)
[2024-08-12] MEDS: TAMSULOSIN HCL 0.4 MG CAP PO SCH (21:51)
[2024-08-12] MEDS: MAGNESIUM SULFATE / D5W 1 GM/100 ML BAG IV SCH (22:02)
[2024-08-12] MEDS: LORazepam 0.5 MG TAB PO PRN (23:48)
[2024-08-13 06:18] LABS: Basophils # (auto) 0.03 K/uL (0.00-0.20); Basophils % (auto) 0.4 %; Eosinophils # (auto) 0.24 K/uL (0.00-0.50); Eosinophils % (auto) 3.5 %; Hematocrit (blood only) 42.4 % (42.0-52.0); Hemoglobin 14.1 g/dl (14.0-18.0); Immature Granulocytes # (auto) 0.03 K/uL (0.01-0.20); Immature Granulocytes % (auto) 0.4 %; Lymphocytes # (auto) 1.34 K/uL (1.20-3.40); Lymphocytes % (auto) 19.6 %; Mean Corpuscular Hemoglobin 29.6 pg (25.0-34.0); Mean Corpuscular Hgb Conc 33.3 g/dL (32.0-36.0); Mean Corpuscular Volume 89.1 fL (80.0-100.0); Monocytes # (auto) 0.76 K/uL (0.11-0.59); Monocytes % (auto) 11.1 %; Neutrophils # (auto) 4.45 K/uL (1.40-6.50); Platelet Count 148 K/uL (130-400); RDW Coefficient of Variation 14.9 % (11.5-14.5); RDW Standard Deviation 48.6 fL (36.4-46.3); Red Blood Count 4.76 M/uL (4.70-6.10); White Blood Count 6.85 K/ul (4.8-10.8)
[2024-08-13 06:28] LABS: BUN Creatinine Ratio 20.1 (10-20); Calcium 8.7 mg/dl (8.6-10.3); Creatinine Clr Calc Pharmacy 49.4 ml/min; Magnesium 1.9 mg/dl (1.7-2.4); Potassium 3.3 mmol/L (3.5-5.1)
[2024-08-13 06:35] LABS: Troponin I High Sensitivity 33.2 pg/ml (0-20)
--- NOTE | 2024-08-13 08:22 | Cardiology Consultation ---
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 Cardiology requested for evaluation and recommendations. Plan: 1. Acute on Chronic systolic HF: -Most recent echocardiogram obtained from [facility] demonstrating a decrease in LVEF to 35% -OP nuclear stress testing has been scheduled. -will repeat echocardiogram today in the setting of aggressive diuresis to assess overall structure and function. -Received a one time dose of lasix 20mg IV last evening -Will recommend continued diuresis with IV Lasix. Will repeat lasix 20mg IV x1 today and reassess fluid status in the AM -Creatine remains stable 1.40 (baseline 1.3-1.6). Continue close monitoring of renal function as well as serum electrolytes. -Goal serum K > 4.0 and Serum Mag > 2.0 -Strict I&O with daily standing weights -2G low sodium diet. -patient does admit that he had not started his OP diuretics as adjusted on 08/02/24, and had dietary indiscretion associated with the holiday. 2. Lightheadedness: 3. 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 -Continue to monitor on telemetry. Did discuss that over time treating his A- fib and known ventricular ectopy with medications may become more difficult and at some juncture may have to be considered for a pacemaker. -Currently receiving Toprol xl 12.5mg PO BID. Will discuss with Dr. Palomo likely dose adjustments given his known ventricular ectopy -Continue low dose eliquis. No active bleeding. H/H is stable Case has been discussed with Dr. Palomo. Further recommendations regarding plan of care as per his assessment. I spent a total of 40 minutes on the date of service in preparation, delivery, documentation of the care provided to the patient excluding any time spent in the performance of separately billed services. NAZANIN Gregorio [facility] Cardiology [facility] Supervising Physician Co-Signing Physician Notes Patient seen and personally examined. Full assessment and plan as outlined by advanced provider above. Care and management discussed and personally endorsed. 83-year-old male with 1. Acute on chronic systolic heart failure with variable degree of LV dysfunction. Echocardiogram today with improved from outpatient testing. 2. Chronic ventricular ectopy, nonsustained ventricular tachycardia 3. Chronic atrial fibrillation with relatively slow ventricular response rate, left bundle branch block configuration Recommendations Additional diuresis today with furosemide 40 mg IV now Initiate spironolactone 12.5 mg daily Reduce metoprolol succinate to once daily Patient to wear CPAP in hospital I spent a total of 40 minutes on the date of service in preparation, delivery, documentation of the care provided to the patient excluding any time spent in the performance of separately billed services. History of Present Illness Reason for Consultation: Acute systolic HF, dizziness. Requesting Physician: Lauri abreu Attending Physician: Ray Martin MD History of Present Illness HPI: Patient is a 83 year old male with PMHx as noted below that presented to the ER on 08/12/24 with complaints of dizziness and lightheadedness. Last seen in OP Cardiology by Russ Morley PA-C 08/02/2024 with 9lb weight gain. At that time he was taking PO Torsemide q3-4 days, but this was increased to Daily at time of appt. Recent echo demonstrated reduction in EF and he was referred for a nuclear lexiscan as well as an EP referral due to the new decrease in EF and VT Upon seeing patient today, he is feeling fair. Denies any chest pain, pressure or palpitations. He endorses some very short episodes of lightheadedness when s tanding and also on occasion while sitting on the side of the bed. Reports urinating a large amount. -975cc fluid balance. No weights for comparison. Problem List: 1. Chronic atrial fibrillation 2. Chronic anticoagulation 3. Fixed apical thinning nuclear stress test 2011, likely normal variant 4. Asymptomatic frequent PVCs 5. Systolic congestive heart failure 6. Chronic left bundle branch block 7. Dyslipidemia 8. 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 Sleep apnea, CPAP therapy. 10. Vertigo 11. History of laparoscopic lysis of adhesions, closure of colostomy, colon resection 2011 12. GERD 13. Pernicious anemia 14. Depression 15. IBS 16. Enlarged prostate 17. History of diverticulitis 18. Chronic low back pain, sciatica. 19. 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 EKG today is called Atrial fibrillation with slow ventricular rate, vs question of junctional rhythm Serum K 3.3 Serum Mag 1.6 on admission, supplemented. currently 1.9 Cr. 1.49 Chest xray as follows: IMPRESSION: Radiographic features favoring volume overload with moderate enlargement of the cardiac silhouette. Echo pending Allergies Allergy/AdvReac Type Severity Reaction Status Date / Time house dust AdvReac Mild Congested Verified 02/18/24 14:31 Home Medications Medication Instructions Recorded Confirmed Type apixaban 2.5 mg tablet (Eliquis) 2.5 mg PO AMHS 05/17/20 08/12/24 History tamsulosin 0.4 mg capsule 0.4 mg PO HS 11/05/22 08/12/24 History cyanocobalamin (vitamin B-12) 1,000 mcg sublingual QAM 04/07/23 08/12/24 History 1,000 mcg sublingual tablet fluticasone propionate 50 1 spray intranasal QAM 04/07/23 08/12/24 History mcg/actuation nasal spray,suspension ipratropium bromide 42 mcg (0.06 2 spray intranasal TID PRN 04/07/23 08/12/24 History %) nasal spray allergies lactobacillus combination no.4 3 3,000 mmu cells PO DAILY 07/30/23 08/12/24 Hi story billion cell capsule (Probiotic) erythromycin with ethanol 2 % 1 applic topical DAILY 11/14/23 08/12/24 History topical swab (Mckinley Pads) lorazepam 1 mg tablet 0.5 - 1 mg PO TID PRN Anxiety 11/14/23 08/12/24 History meclizine 25 mg tablet 25 mg PO TID PRN Vertigo 11/14/23 08/12/24 History pantoprazole 40 mg tablet,delayed 40 mg PO BIDM 11/14/23 08/12/24 History release bupropion HCl 150 mg 24 hr tablet, 150 mg PO QAM 08/12/24 08/12/24 History extended release cholestyramine (with sugar) 4 gram 4 g PO .MID AFTERNOON 08/12/24 08/12/24 History powder for susp in a packet clindamycin phosphate 1 % topical 1 applic topical DAILY PRN FACE 08/12/24 08/12/24 History swab doxycycline monohydrate 50 mg 50 mg PO DAILY 08/12/24 08/12/24 History capsule dutasteride 0.5 mg capsule 0.5 mg PO QAM 08/12/24 08/12/24 History ergocalciferol (vitamin D2) 1,250 50,000 unit PO WK 08/12/24 08/12/24 History mcg (50,000 unit) capsule hyoscyamine sulfate 0.125 mg 0.125 mg PO Q4 PRN Abdominal Pain 08/12/24 08/12/24 History sublingual tablet metoprolol succinate 25 mg 12.5 mg PO AMHS 08/12/24 08/12/24 History tablet,extended release 24 hr spironolactone 25 mg tablet 12.5 mg PO 3XWK 08/12/24 08/12/24 History torsemide 10 mg tablet 5 - 10 mg PO 2XWK PRN Edema 08/12/24 08/12/24 History Patient History Medical History Chronic systolic (congestive) heart failure Dementia without behavioral disturbance Stage 3b chronic kidney disease Hypersomnolence disorder Essential tremor Dyslipidemia MYRON on CPAP Hx of colonic polyp Vitamin D deficiency Pernicious anemia Lumbar spondylosis with myelopathy Rosacea On anticoagulant therapy Anxiety and depression Hx of gout LBBB (left bundle branch block) CHRONIC Asthma STABLE Osteoarthritis Sciatica BPH (benign prostatic hyperplasia) Diverticular disease DIVERTICULITIS S/P PERFORATION/COLON RESECTION (2005) GERD (gastroesophageal reflux disease) Surgical History History of cataract surgery RT History of arthroplasty of right knee History of colonoscopy 2019 History of esophagogastroduodenoscopy (EGD) 2020 History of appendectomy History of colostomy reversal History of bowel resection DIVERTICULITIS S/P PERFORATION/COLON RESECTION (2005) History of endoscopic sinus surgery Right side-Dr. Yuan History of tonsillectomy Family History Mother Family hx of colon cancer Family history of diabetes mellitus Social History Smoking Status: Former smoker Tobacco Type: Cigarettes packs per day: 0.5; Smoking End Date: smoked from age [age]; Second Hand Exposure: No; Do You Dip or Chew Tobacco: No; Hx Alcohol Use: No Hx Substance Use: No Preferred Language: Uzbek Communication Ability: Effective Visual Impairment: Limited Hearing Ability: Use of Hearing Aid Well Testing Operator Required: No Beliefs That Will Affect Care: None marital status: unknown marital status details: Engaged Current Living Situation: Significant Other Current Living Situation Comment: lives w/ significant other Laura How many Children do You have: 2 Other Information That Helps Us Care for You: No other: Brother Matthieu is medical power of deputy attorney general, Feels Safe at Home: Yes Safety Concerns: Feels Safe At This Time Childhood Exposure to Second-Hand Smoke: No Diet: ideal protein and low salt Diet Comment: Low fat Gender Identity: Male Assistive Devices: Cane, CPAP, Denture - Upper, Denture - Lower, Glasses and Hearing Aid - Bilateral Review of Systems Review of Systems: All systems reviewed & are unremarkable except as noted in HPI & below Physical Exam Constitutional: well developed and well nourished; no acute distress Neck: normal visual inspection and trachea midline Respiratory: normal respiratory effort; no respiratory distress Auscultation: + diminished lung sounds (bilateral bases); no crackles, no rales, no rhonchi and no wheezes Cardiovascular: Rate/Rhythm: + bradycardic and + irregularly irregular Heart Sounds: normal S1 and normal S2 Vessels: + JVD and dorsalis pedis pulses present Extremities: + edema (+2 Left Lower extremity, +1 Right LE. ) Skin: no rashes, warm and dry Psychiatric: A+Ox3, euthymic affect Results & Data Vital Signs (Past 12 Hours) Vital Signs Temp Pulse Pulse Pulse Resp BP BP 08/13/24 07:44 36.6 C 63 19 132/74 08/13/24 07:00 53 L 08/13/24 04:06 37.2 C 61 15 106/68 08/13/24 00:11 08/12/24 23:27 37.0 C 71 17 131/81 08/12/24 21:41 36.4 C L 64 20 141/80 H 08/12/24 21:40 63 08/12/24 21:15 62 08/12/24 20:49 62 18 145/87 H Pulse Ox O2 Del Method 08/13/24 07:44 95 Room Air 08/13/24 07:00 08/13/24 04:06 96 CPAP 08/13/24 00:11 Room Air, CPAP 08/12/24 23:27 96 Room Air 08/12/24 21:41 96 Room Air 08/12/24 21:40 08/12/24 21:15 08/12/24 20:49 99 Room Air Laboratory Results Cardiac Enzymes 08/12/24 08/13/24 Range/Units 17:30 05:21 AST 18 (13-39) U/L Troponin I High Sens 33.2 H (0-20) pg/ml CBC 08/12/24 08/13/24 Range/Units 17:30 05:21 WBC 6.63 6.85 (4.8-10.8) K/ul RBC 5.15 4.76 (4.70-6.10) M/uL Hgb 15.2 14.1 (14.0-18.0) g/dl Hct 47.1 42.4 (42.0-52.0) % Plt Count 155 148 (130-400) K/uL Neut # (Auto) 4.08 4.45 (1.40-6.50) K/uL Lymph # (Auto) 1.55 1.34 (1.20-3.40) K/uL [place] # (Auto) 0.76 H 0.76 H (0.11-0.59) K/uL Eos # (Auto) 0.20 0.24 (0.00-0.50) K/uL Baso # (Auto) 0.03 0.03 (0.00-0.20) K/uL Comprehensive Metabolic Panel 08/12/24 08/13/24 Range/Units 17:30 05:21 Sodium 142 141 (136-145) mmol/L Potassium 3.3 L 3.3 L (3.5-5.1) mmol/L Chloride 104 105 (98-107) mmol/L Carbon Dioxide 31 27 (21-32) mmol/L BUN 30 H 30 H (6-23) mg/dl Creatinine 1.65 H 1.49 H (0.6-1.4) mg/dl Glucose 93 99 (70-99(Fasting)) mg/dl Calcium 9.1 8.7 (8.6-10.3) mg/dl AST 18 (13-39) U/L ALT 10 (7-52) U/L Alkaline Phosphatase 139 H (34-104) U/L Total Protein 7.1 (6.0-8.3) gm/dl Albumin 3.9 (3.4-5.0) gm/dl Intake and Output 08/12/24 08/13/24 08/13/24 22:59 06:59 14:59 Intake Total 100 / 800 700 / 800 Output Total 300 / 1775 1475 / 1775 Balance -200 / -975 -775 / -975 Intake: IV 200 / 200 Magnesium Sulfate / D5w 1 gm In 200 / 200 100 ml @ 50 mls/hr IV Q2H [facility] Rx#:[id number] Oral 100 / 600 500 / 600 Output: Urine 300 / 1775 1475 / 1775 Other: Weight 110.8 kg 108 kg Weight Measurement Method Standing Scale
[2024-08-13] MEDS: DOXYCYCLINE HYCLATE 50 MG CAP PO SCH (08:37)
[2024-08-13] MEDS: buPROPion XL 150 MG TABCR PO SCH (08:37)
[2024-08-13] MEDS: FINASTERIDE 5 MG TAB PO SCH (08:37)
[2024-08-13] MEDS: CYANOCOBALAMIN (B-12) 500 MCG TABLET PO SCH (08:37)
[2024-08-13] MEDS: ADVANCED PROBIOTIC 625 MG CAPSULE PO SCH (08:38)
[2024-08-13] MEDS: PANTOprazole 40 MG TAB PO SCH (08:38)
[2024-08-13] MEDS: FLUTICASONE PROPIONATE NA SPR 16 GM BTL SCH (08:39)
--- NOTE | 2024-08-13 11:34 | Electrocardiogram Report ---
Test Reason : Blood Pressure : */* mmHG Vent. Rate : 63 BPM Atrial Rate : * BPM P-R Int : * ms QRS Dur : 96 ms QT Int : 416 ms P-R-T Axes : * 4 257 degrees QTcB Int : 425 ms Atrial fibrillation with premature ventricular or aberrantly conducted complexes Abnormal ECG When compared with ECG of 06-Jul-2024 12:35, Left bundle branch block is no longer Present Confirmed by Shamir Tse ([id number]) on 08/13/2024 11:34:18 AM Referred By: REFERRED SELF Confirmed By: Shamir Tse
--- NOTE | 2024-08-13 11:41 | Electrocardiogram Report ---
Test Reason : Blood Pressure : */* mmHG Vent. Rate : 49 BPM Atrial Rate : 64 BPM P-R Int : * ms QRS Dur : 136 ms QT Int : 478 ms P-R-T Axes : * -58 37 degrees QTcB Int : 431 ms Atrial fibrillation with slow ventricular response with premature ventricular or aberrantly conducted complexes Left axis deviation Non-specific intra-ventricular conduction block Abnormal ECG When compared with ECG of 12-Aug-2024 17:22, (unconfirmed) Questionable change in QRS duration Confirmed by Shamir Tse ([id number]) on 08/13/2024 11:41:16 AM Referred By: REFERRED SELF Confirmed By: Shamir Tse
--- NOTE | 2024-08-13 13:48 | Hospitalist Progress Note ---
Date of Service August 13, 2024 Assessment & Plan (1) Acute on chronic combined systolic and diastolic CHF (congestive heart failure): Plan: His ejection fraction is known to be low however on this evaluation today echocardiogram showed ejection fraction of 50 to 55%, with addition of diastolic LV dysfunction of grade 2 with moderate MR and TR. Cardiology recommendations were seen and appreciated, continue with aggressive diuresis, hemodynamically patient is stable, blood pressure is controlled, continue with Toprol-XL 12.5 mg daily and Aldactone 12.5 mg daily. Echocardiogram was reviewed. (2) MARIA C (generalized anxiety disorder): Plan: Continue with Wellbutrin 150 mg every morning. (3) Atrial fibrillation: Plan: Heart rate is controlled, continue with low-dose Toprol-XL and Eliquis 2.5 mg twice daily. (4) CKD stage 3a, GFR 45-59 ml/min: Plan: This is chronic and has been relatively stable, current creatinine is 1.4 which is more or less close to his previous numbers, he carries a diagnosis of CKD stage IIIa. Monitor kidney function. (5) Acute hypokalemia: Plan: Potassium is 3.3 same as yesterday, will replace. (6) Hypomagnesemia: Plan: Replaced and resolved, magnesium today is 1.9 up from 1.6 yesterday. Plan Continue with diuresis as recommended by cardiology, reevaluate tomorrow for volume status assessment and potential transitioning to home medications for discharge. Admission and Anticipated Discharge Date Admission Date: August 12, 2024 Subjective Patient is an 83-year-old very pleasant gentleman with history of dyslipidemia, hyperparathyroidism , chronic systolic CHF with ejection fraction of 35%, MYRON, atrial fibrillation and CKD stage III who came to the hospital because of dizziness, this has been going on for about 30 days, he told me that he was unable to get in touch with his cardiology team and had no choice other than coming to the hospital. He was generally stable does not require oxygenation, chest x-ray showed some element of volume overload, he complained that his lower extremities were slightly more swollen especially the left side which is always more swollen than the lower right side. Patient was placed on IV diuresis, seen and examined and overall stable currently. Patient was seen by cardiology and recommendations were given, echocardiogram was done which surprisingly showed improvement in his ejection fraction to 50 to 55%. With moderate LVH, grade 2 diastolic LV dysfunction severe dilation of left atrium and moderate TR and moderate MR. Patient is overall stable, continue uptitrating his medications and diuresing him. Physical Exam Physical Exam: VITALS: Reviewed. WEIGHT/BMI reviewed. GEN: Healthy appearing, well-developed, NAD. NECK: Supple, with no masses. CV: Irregularly irregular rhythm, no m/r/g. LUNGS: Bilateral basilar crackles no wheeze ABD: Soft, NT/ND, NBS, no masses or organomegaly. Extremities: Patient has evidence of chronic venous stasis dermatitis with some hyperpigmentation and worse on the left side. He has chronic left lower extremity swelling more than the right. There is some skin abrasions on the left side. Results & Data Results & Data Vital Signs (Past 12 Hours) Vital Signs Temp Pulse Pulse Resp BP Pulse Ox O2 Del Method 08/13/24 10:47 36.7 C 60 19 115/78 96 Room Air 08/13/24 07:44 36.6 C 63 19 132/74 95 Room Air 08/13/24 07:00 53 L 08/13/24 04:06 37.2 C 61 15 106/68 96 CPAP Diagnostic Findings Laboratory Results WBC 6.85 K/ul (4.8-10.8) 08/13/24 05:21 RBC 4.76 M/uL (4.70-6.10) 08/13/24 05:21 Hgb 14.1 g/dl (14.0-18.0) 08/13/24 05:21 Hct 42.4 % (42.0-52.0) 08/13/24 05:21 MCV 89.1 fL (80.0-100.0) 08/13/24 05:21 MCH 29.6 pg (25.0-34.0) 08/13/24 05:21 MCHC 33.3 g/dL (32.0-36.0) 08/13/24 05:21 RDW Std Deviation 48.6 fL (36.4-46.3) H 08/13/24 05:21 RDW Coeff of [place] 14.9 % (11.5-14.5) H 08/13/24 05:21 Plt Count 148 K/uL (130-400) 08/13/24 05:21 MPV 11.0 fL (9.4-12.4) 08/13/24 05:21 Immature Gran % (Auto) 0.4 % 08/13/24 05:21 Neut % (Auto) 65.0 % 08/13/24 05:21 Lymph % (Auto) 19.6 % 08/13/24 05:21 [place] % (Auto) 11.1 % 08/13/24 05:21 Eos % (Auto) 3.5 % 08/13/24 05:21 Baso % (Auto) 0.4 % 08/13/24 05:21 Neut # (Auto) 4.45 K/uL (1.40-6.50) 08/13/24 05:21 Lymph # (Auto) 1.34 K/uL (1.20-3.40) 08/13/24 05:21 [place] # (Auto) 0.76 K/uL (0.11-0.59) H 08/13/24 05:21 Eos # (Auto) 0.24 K/uL (0.00-0.50) 08/13/24 05:21 Baso # (Auto) 0.03 K/uL (0.00-0.20) 08/13/24 05:21 Immature Gran # (Auto) 0.03 K/uL (0.01-0.20) 08/13/24 05:21 Sodium 141 mmol/L (136-145) 08/13/24 05:21 Potassium 3.3 mmol/L (3.5-5.1) L 08/13/24 05:21 Chloride 105 mmol/L (98-107) 08/13/24 05:21 Carbon Dioxide 27 mmol/L (21-32) 08/13/24 05:21 Anion Gap 9 (3-11) 08/13/24 05:21 BUN 30 mg/dl (6-23) H 08/13/24 05:21 Creatinine 1.49 mg/dl (0.6-1.4) H 08/13/24 05:21 Est Cr Clr Drug Dosing 49.4 ml/min 08/13/24 05:21 eGFR 46.86 08/13/24 05:21 BUN/Creatinine Ratio 20.1 (10-20) H 08/13/24 05:21 Glucose 99 mg/dl (70-99(Fasting)) 08/13/24 05:21 Calcium 8.7 mg/dl (8.6-10.3) 08/13/24 05:21 Magnesium 1.9 mg/dl (1.7-2.4) 08/13/24 05:21 Total Bilirubin 1.3 mg/dl (0.2-1.0) H 08/12/24 17:30 AST 18 U/L (13-39) 08/12/24 17:30 ALT 10 U/L (7-52) 08/12/24 17:30 Alkaline Phosphatase 139 U/L (34-104) H 08/12/24 17:30 Troponin I High Sens 33.2 pg/ml (0-20) H 08/13/24 05:21 Total Protein 7.1 gm/dl (6.0-8.3) 08/12/24 17:30 Albumin 3.9 gm/dl (3.4-5.0) 08/12/24 17:30 Globulin 3.2 gm/dl (2.5-4.0) 08/12/24 17:30 Albumin/Globulin Ratio 1.2 (0.9-2) 08/12/24 17:30 TSH 2.457 uIu/ml (0.300-4.500) 08/12/24 17:30 Urine Color Yellow 08/12/24 19:10 Urine Appearance Clear (Clear) 08/12/24 19:10 Urine pH 5.0 (4.5-7.5) 08/12/24 19:10 Ur Specific [place] 1.009 (1.000-1.030) 08/12/24 19:10 Urine Protein Negative (Negative) 08/12/24 19:10 Urine Glucose (UA) Negative (Negative) 08/12/24 19:10 Urine Ketones Negative (Negative) 08/12/24 19:10 Urine Blood Negative (Negative) 08/12/24 19:10 Urine Nitrite Negative (Negative) 08/12/24 19:10 Urine Bilirubin Negative (Negative) 08/12/24 19:10 Urine Urobilinogen Negative (Negative) 08/12/24 19:10 Ur Leukocyte Esterase Negative (Negative) 08/12/24 19:10 Impressions Chest X-Ray 08/12/24 17:42 EXAM: X-ray chest one-view portable CLINICAL HISTORY: Chest pain PRIORS: None TECHNIQUE: Upright AP view chest FINDINGS: The chest is well-expanded. Prominence of the central pulmonary vasculature noted. Cardiac silhouette is moderately enlarged. No pneumothorax. Right costophrenic angle is omitted. Trachea is patent. Osseous structures demonstrate no acute abnormality. No radiopaque foreign body. IMPRESSION: Radiographic features favoring volume overload with moderate enlargement of the cardiac silhouette. Electronically signed by Aure Li 08-12-2024 6:06 PM
[2024-08-13] MEDS: FUROSEMIDE 40 MG/4 ML VIAL IV ONE (14:12)
[2024-08-13] MEDS: CHOLESTYRAMINE LIGHT 4 GM PKT PO SCH (14:13)
[2024-08-13] MEDS: SPIRONOLACTONE 12.5 MG TAB PO ONE (14:13)
[2024-08-13] MEDS: POTASSIUM CHLORIDE CRTAB 20 MEQ TABCR PO STA (14:14)
[2024-08-14 06:18] LABS: Calcium 8.9 mg/dl (8.6-10.3); Creatinine Clr Calc Pharmacy 45.1 ml/min; Potassium 3.6 mmol/L (3.5-5.1)
[2024-08-14 07:35] VITALS: TEMP 98.6; O2SAT 97
[2024-08-14] MEDS: SPIRONOLACTONE 12.5 MG TAB PO SCH (08:05)
[2024-08-14] MEDS: METOPROLOL SUCC 25MG EXT REL TAB PO SCH (08:05)
[2024-08-14] MEDS: MECLIZINE HCL 25 MG TAB PO PRN (08:10)
--- NOTE | 2024-08-14 09:11 | Electrocardiogram Report ---
Test Reason : Blood Pressure : */* mmHG Vent. Rate : 60 BPM Atrial Rate : 55 BPM P-R Int : * ms QRS Dur : 138 ms QT Int : 446 ms P-R-T Axes : * -50 53 degrees QTcB Int : 446 ms Atrial fibrillation with premature ventricular or aberrantly conducted complexes Left axis deviation Non-specific intra-ventricular conduction delay Possible Old Inferior infarct Abnormal ECG When compared with ECG of 13-Aug-2024 05:52, Criteria for Old Inferior infarct now present HR has increased by 11 bpm Confirmed by Jeff Martino ([id number]) on 08/14/2024 9:11:08 AM Referred By: REFERRED SELF Confirmed By: Jeff Martino
--- NOTE | 2024-08-14 10:08 | Cardiology Progress Note ---
Date of Service August 14, 2024 Assessment & Plan (1) Acute on chronic systolic (congestive) heart failure: (2) Lightheadedness: (3) Chronic atrial fibrillation: (4) intermediate (current) use of anticoagulants: Plan Assessment: 83 year old male presented with dizziness and modest volume overload. Cardiology requested for evaluation and recommendations. Plan: 1. Acute on Chronic systolic HF: -Most recent echocardiogram obtained from [facility] demonstrating a decrease in LVEF to 35% -OP nuclear stress testing has been scheduled. -will repeat echocardiogram today in the setting of aggressive diuresis to assess overall structure and function. -Received a one time dose of lasix 20mg IV last evening -Will recommend continued diuresis with IV Lasix. Will repeat lasix 20mg IV x1 today and reassess fluid status in the AM -Creatine remains stable 1.40 (baseline 1.3-1.6). Continue close monitoring of renal function as well as serum electrolytes. -Goal serum K > 4.0 and Serum Mag > 2.0 -Strict I&O with daily standing weights -2G low sodium diet. -patient does admit that he had not started his OP diuretics as adjusted on 08/02/24, and had dietary indiscretion associated with the holiday. 2. Lightheadedness: 3. chronic A-fib 4. [employer] use of anticoagulants: -multifactorial in the setting of volume overload and also noted low heart rates. -Continue to monitor on telemetry. Did discuss that over time treating his A- fib and known ventricular ectopy with medications may become more difficult and at some juncture may have to be considered for a pacemaker. -Currently receiving Toprol xl 12.5mg PO BID. Will discuss with Dr. Palomo likely dose adjustments given his known ventricular ectopy -Continue low dose eliquis. No active bleeding. H/H is stable Case has been discussed with Dr. Palomo. Further recommendations regarding plan of care as per his assessment. I spent a total of 40 minutes on the date of service in preparation, delivery, documentation of the care provided to the patient excluding any time spent in the performance of separately billed services. NAZANIN Gregorio [facility] 08/14/2024 Clinically improved after to IV diuretics. Ventricular ectopy and bradycardia less pronounced with reduced dose metoprolol succinate Recommendations. Able to continue diuretic management at home. Would discharge on torsemide 10 mg/day, spironolactone 12.5 mg p.o. daily reduced dose me toprolol succinate 12.5 mg/day CHF instructions with patient following weights at home already sodium and fluid restriction Admission and Anticipated Discharge Date Admission Date: August 12, 2024 Subjective Patient seen and examined, chart, medications, telemetry reviewed. Patient feels improved this morning still with lower extremity edema. Dizziness and lightheadedness improved. No significant arrhythmias overnight. No cough or shortness of breath. Desires to go home for outpatient management. Review of Systems Review of Systems: All systems reviewed & are unremarkable except as noted in Subjective Physical Exam Constitutional: well developed and well nourished; no acute distress Neck: normal visual inspection and trachea midline Respiratory: normal respiratory effort; no respiratory distress Auscultation: + diminished lung sounds (bilateral bases); no crackles, no rales, no rhonchi and no wheezes Cardiovascular: Rate/Rhythm: + bradycardic and + irregularly irregular Heart Sounds: normal S1 and normal S2 Vessels: + JVD and dorsalis pedis pulses present Extremities: + edema (+1-2 Left Lower extremity) Skin: no rashes, warm and dry Psychiatric: A+Ox3, euthymic affect Results & Data Vital Signs (Past 12 Hours) Vital Signs Temp Pulse Pulse Resp BP BP Pulse Ox 08/14/24 08:00 08/14/24 07:34 37.0 C 61 19 144/81 H 97 08/14/24 03:03 36.4 C L 66 21 123/81 98 08/13/24 23:00 56 L O2 Del Method 08/14/24 08:00 Room Air 08/14/24 07:34 Room Air 08/14/24 03:03 Room Air 08/13/24 23:00 Laboratory Results Laboratory Results - last 24 hr 08/14/24 05:40 Sodium 142 Potassium 3.6 Chloride 105 Carbon Dioxide 29 Anion Gap 8 BUN 33 H Creatinine 1.65 H Est Cr Clr Drug Dosing 45.1 eGFR 41.46 BUN/Creatinine Ratio 20.0 Glucose 106 H Calcium 8.9
[2024-08-14] MEDS: TORSEMIDE 10 MG TAB PO SCH (11:01)
[2024-08-14 11:15] VITALS: RESP 18
--- NOTE | 2024-08-14 12:36 | Discharge Summary ---
Discharge Summary Date of Service August 14, 2024 Principal Dx & Hospital Course #1 = Principal Diagnosis (1) Acute on chronic combined systolic and diastolic CHF (congestive heart failure): (2) MARIA C (generalized anxiety disorder): (3) Atrial fibrillation: (4) CKD stage 3a, GFR 45-59 ml/min: (5) Acute hypokalemia: (6) Hypomagnesemia: Notes For Next Care Provider Medication Changes From Visit Patient will be discharged on the same home medications without any change he was recommended and advised to remain compliant with treatment Admission HPI Per Admitting Provider 83-year-old male with past medical history significant for dyslipidemia, hyperparathyroidism, nonallergic rhinitis, obstructive sleep apnea, periodic breathing, chronic atrial fibrillation, chronic systolic CHF, vitamin D deficiency, irritable bowel syndrome, CKD stage III, lumbar spondylosis, sacroiliitis, essential tremor, pernicious anemia, adjustment disorder with depressed mood, rosacea, generalized anxiety disorder, major depression, hypersomnolence disorder, periodic limb movement disorder who lives with his friend and ambulates with cane comes because of dizziness and lightheadedness. Patient says he gets dizzy for few minutes but today it was persistent when he decided come to the ER. Currently while sitting in the bed states his dizziness is better.Currently denies any spinning of the room. Sometimes gets mild headaches but currently denies any headache. No blurred vision. Always has a runny nose. No sore throat. Has some cough. No fevers. Denies any chest pain. No shortness of breath. No nausea. No abdominal pain. Appetite is okay. No difficulty swallowing. Somewhat constipated. Denies any blood in the stool or black stools. Micturating okay. States he gained about 10 pounds in 1 week and saw cardiology recently and his torsemide which he used to take as needed or once or twice a week was advised to take daily and also Aldactone 12.5 mg Fridays was added and so far he took 2 doses of Aldactone. He thinks he lost about 5 pounds of weight so far. As per recent cardiology notes he had ZIO monitor in July 2024 which showed occasional couplets, triplets and 5 runs of V. tach. His echo on July 12, 2024 showed EF of 35 to 39% which was 50 to 54% in December 2022. Because of changes seen in EF and also VT on ZIO monitor there is plan to refer to electrophysiology and also for Lexiscan nuclear stress testing. Patient says since he started new diuretics there is a plan to check labs coming Friday. Currently resting comfortably and hemodynamically stable. Over the past several days patient was managed with IV Lasix with significant diuresis and resolution of his symptoms, he thinks that he still sometimes feel dizziness and I explained to him that this is mostly due to diuretic use. He was comfortable going home today, discussed with cardiology and the plan is for him to go back on his Bumex 10 mg daily. Interestingly during this hospitalization patient had an echocardiogram showing ejection fraction 50 to 55% with grade 2 diastolic dysfunction, moderate MR and moderate TR. Discharge Exam VITALS: Reviewed. WEIGHT/BMI reviewed. GEN: Healthy appearing, well-developed, NAD. CV: Irregularly irregular rhythm, no m/r/g. LUNGS: Bilateral basilar crackles no wheeze ABD: Soft, NT/ND, NBS, no masses or organomegaly. Extremities: Overall improving, continues to have left lower extremity worse kevin n the right. Updated Medication List Medication Instructions Recorded Confirmed Type apixaban 2.5 mg tablet (Eliquis) 2.5 mg PO AMHS 05/17/20 08/12/24 History tamsulosin 0.4 mg capsule 0.4 mg PO HS 11/05/22 08/12/24 History cyanocobalamin (vitamin B-12) 1,000 mcg sublingual QAM 04/07/23 08/12/24 History 1,000 mcg sublingual tablet fluticasone propionate 50 1 spray intranasal QAM 04/07/23 08/12/24 History mcg/actuation nasal spray,suspension ipratropium bromide 42 mcg (0.06 2 spray intranasal TID PRN 04/07/23 08/12/24 History %) nasal spray allergies lactobacillus combination no.4 3 3,000 mmu cells PO DAILY 07/30/23 08/12/24 History billion cell capsule (Probiotic) erythromycin with ethanol 2 % 1 applic topical DAILY 11/14/23 08/12/24 History topical swab (Mckinley Pads) lorazepam 1 mg tablet 0.5 - 1 mg PO TID PRN Anxiety 11/14/23 08/12/24 History meclizine 25 mg tablet 25 mg PO TID PRN Vertigo 11/14/23 08/12/24 History pantoprazole 40 mg tablet,delayed 40 mg PO BIDM 11/14/23 08/12/24 History release bupropion HCl 150 mg 24 hr tablet, 150 mg PO QAM 08/12/24 08/12/24 History extended release cholestyramine (with sugar) 4 gram 4 g PO .MID AFTERNOON 08/12/24 08/12/24 History powder for susp in a packet clindamycin phosphate 1 % topical 1 applic topical DAILY PRN FACE 08/12/24 08/12/24 History swab doxycycline monohydrate 50 mg 50 mg PO DAILY 08/12/24 08/12/24 History capsule dutasteride 0.5 mg capsule 0.5 mg PO QAM 08/12/24 08/12/24 History ergocalciferol (vitamin D2) 1,250 50,000 unit PO WK 08/12/24 08/12/24 History mcg (50,000 unit) capsule hyoscyamine sulfate 0.125 mg 0.125 mg PO Q4 PRN Abdominal Pain 08/12/24 08/12/24 History sublingual tablet metoprolol succinate 25 mg 12.5 mg PO AMHS 08/12/24 08/12/24 History tablet,extended release 24 hr spironolactone 25 mg tablet 12.5 mg PO 3XWK 08/12/24 08/12/24 History torsemide 10 mg tablet 5 - 10 mg PO 2XWK PRN Edema 08/12/24 08/12/24 History Hospital Stay Data Consultations 08/12/24 19:41 ED Decision to Admit Stat 08/13/24 08:00 Consult Cardiology Routine Pending Results Patient Have Any Pending Studies at Discharge: No Discharge Instructions Given to Patient (Per Discharging Provider) to remain compliant with medications Total Time Total Time Spent Total Time Spent (In Minutes): More than 35 minutes
[2024-08-14 13:03] VITALS: BP 123/81; PULSE 64
--- OUTSIDE RECORDS SUMMARY | 2024-08-15 05:02 | External Medical Summary | Summary of Care ---
Author Name Unknown Organization [facility] Address [address] [place] [address] Phone [phone] Care Team Providers Care Cell Repairer Name Role Phone Eamon Felder DO Primary Care Provider [phone] Reason for Visit * Reason Onset Date Comments Test Results 08/03/2024 Encounter Details Date Type Department Care Team (Late st Contact Info) Description 08/03/2024 Refill Cardiology, [facility] [address] [place] [place] [address] Moses Gallego PA-C [address] [place] [address] Chronic systolic congestive heart failure (HCC)* Allergies Active Allergy Reactions Criticality Noted Date Comments Dust 04/15/2011 Upper resp sx Other Allergy (See Comments) 10/23/2012 Perfume that contains kiah root causes nasal congestion documented as of this encounter (statuses as of 08/11/2024) Medications Vardenafil HCl (LEVITRA) 20 MG TabletIndication s:Impotence of organic origin Take 1 Tab by mouth daily as needed for Erectile Dysfunction. 1 hour prior to intercourse, no more than 1 dose per day. 10 Tab 5 8 Active Clindamycin Phosphate 1 % SWABIndications: Rosacea Apply to face daily as needed 60 Each 1 8 Active Additional Information Patient not taking.Informant: Patient, Reported on 08/02/2024 fluticasone (FLONASE) 50 MCG/ACT nasal spray Administer 1 [place] into nostril in the morning. Active CPAP every night at bedtime. Active B-12 1000 MCG Oral Tablet Take 1,000 mcg by mouth daily. Active Probiotic 250 MG Oral Capsule Take by mouth. Ac tive Meclizine HCl 25 MG Oral Tablet (Antivert)Indica tions:Vertigo Take 1 Tablet by mouth 3 times a day as needed for Dizziness. 30 Tablet 1 4 Active Ipratropium Adams 0.06 % Nasal Solution (Atrovent)Indica tions:Periodic breathing instill 2 sprays into each nostril three times a day if needed for allergies 15 mL 3 4 Active Vitamin D3 1.25 MG (85257 UT) Oral Tablet (Cholecalciferol ) Take 1 Tablet by mouth once a week. 4 Tablet 3 4 Active Additional Information Patient not taking.Reported on 08/02/2024 Tamsulosin HCl 0.4 MG Oral Capsule (Flomax)Indicati ons:BPH with obstruction/lowe r urinary tract symptoms Take 1 Capsule by mouth at bedtime. 90 Capsule 3 4 Active Hyoscyamine Sulfate 0.125 MG Sublingual Tablet Sublingual (Levsin)Indicati ons:Irritable bowel syndrome One pill by mouth or under the tongue every 4 hours as needed for abdominal pain 40 Tablet 4 4 Active Torsemide 10 MG Oral Tablet (Demadex) Take 1/2 or 1 tablet one to two days per week only as needed 6 Tablet 3 4 Active Doxycycline Monohydrate 50 MG Oral Capsule Take 50 mg by mouth daily. 30 Capsule 11 4 Active Cholestyramine 4 GM Oral Packet (Questran) One packet daily in mid afternoon, mixed with liquid. 60 Packet 5 4 Active LORazepam 1 MG Oral Tablet (Ativan) Take 1/2 to 1 tablet by mouth up to 3 times a day as needed for anxiety (quantity to last 30 days) 60 Tablet 3 08/02/2024 2:48 PM EST 4 Active Pantoprazole Sodium 40 MG Oral Tablet Delayed Release (Protonix) TAKE 1 TABLET BY MOUTH TWICE A DAY 30 MINUTES BEFORE MORNING AND EVENING MEALS 180 Tablet 1 4 Active [place] 2 % External Pad (Erythromycin)In dications:Rosace a APPLY TOPICALLY TO FACE DAILY FOR ROSACEA DIRECTED BY PRESCRIBER 60 Each 5 4 Active Metoprolol Succinate ER 25 MG Oral Tablet Extended Release 24 Hour (toPROL XL)Indications:C hronic atrial fibrillation (HCC) Take 0.5 Tablets by mouth in the morning and 0.5 Tablets before bedtime. 90 Tablet 3 4 Active Apixaban 2.5 MG Oral Tablet (Eliquis)Indicat ions:Chronic atrial fibrillation (HCC) Take 1 Tablet by mouth in the morning and 1 Tablet before bedtime. 180 Tablet 3 4 Active buPROPion HCl ER (XL) 150 MG Oral Tablet Extended Release 24 Hour (Wellbutrin XL) Take 1 Tablet by mouth in the morning. 90 Tablet 1 4 Active Dutasteride 0.5 MG Oral Capsule (Avodart) Take 1 Capsule by mouth in the morning. 4 Active Spironolactone 25 MG Oral Tablet (Aldactone)Indic ations:Chronic systolic congestive heart failure (HCC) Take 1/2 Tablets by mouth once a day on Friday, Friday, and Friday only. 20 Tablet 3 08/06/2024 2:35 PM EST 4 Active documented as of this encounter (statuses as of 08/11/2024) Active Problems Problem Noted Date Diagnosed Date Relationship problems 04/26/2024 Sacroiliitis 11/06/2022 HPTH (hyperparathyroidism) 11/06/2022 Chronic systolic [...] 11/10/2015 Family history of colon cancer 04/28/2014 MYRON (obstructive sleep apnea) 05/05/2012 Overview (01/27/2013): AHI 5.6 ON CPAP Mild nocturnal hypoxemia Irritable bowel syndrome 04/20/2012 History of colonic polyps 04/21/2010 Overview (10/26/2015): . 11/08/14: adenoma of the ascending colon, repeat 5 years 05/15/11: adenoma repeat in three years ED 03/01/2010 NONALLERGIC RHINITIS 02/14/2010 Vitamin D deficiency 10/03/2008 Pernicious anemia 08/05/2008 Lumbar spondylosis with myelopathy 08/21/2007 Rosacea 05/28/2007 Adjustment disorder with depressed mood 04/10/20 07 documented as of this encounter (statuses as of 08/11/2024) Resolved Problems Problem Noted Date Diagnosed Date Resolved Date Prediabetes 06/16/2023 08/21/2023 Overview: Per Prediabetes protocol Kidney disease, chronic, sta ge IV (GFR 15-29 ml/min) 10/17/2021 10/17/2021 Major depressive disorder, recurrent episode 9 03/14/2020 Fatigue 09/12/2016 11/19/2018 Kidney disease, chronic, sta ge III (GFR 30-59 ml/min) 11/21/2014 09/21/2020 Overview: Per CKD protocol #1 Pure hypercholesterolemia 10/12/2013 Screening for cholesterol level 09/27/2013 09/24/2016 Jha's esophagus 04/07/2013 09/10/19 20 Overview (05/06/2016): 05/01/16: esophagitis, no Jha's,. Repeat 2019 at [...] as of this encounter (statuses as of 08/11/2024) Immunizations Name Administration Dates Next Due COVID-19 mRNA, LNP-s, No Pre serve, 2-Dose Series (Digital Perception) 07/28/2021,07/02/2021,11/16/2020,05/2021 Pneumococcal Conjugate Vacc, 13 Valent (Prevnar) 10/26/2015 Pneumococcal Polysaccharide PPV23 (Pneumovax) 06/13/2008 Season Influenza, Quad, PF, Adjuvanted, 65+ Yrs, IM (FLUAD) 05/31/2020 Seasonal Influenza Vac., MDV , IM, 0.5 mL (Fluzone) 05/25/2014,06/09/2013,07/13/2012,1001/2010,06/21/2009,07/23/2008,08/21/20 07 Seasonal Influenza, PF, 6 M & above, IM , (FluLaval or Fluzone) 05/22/2018,06/25/2017 Seasonal Influenza, Quadriva lent Hd (Fluzone Hd) 05/26/2023,06/21/2022,07/26/2021 Seasonal Influenza, Quadriva lent, No Preserve, IM 06/27/2016,06/19/2015 06/27/2017 Seasonal Influenza, Trivalen t, Adjuvanted, 65+ YRS, PF, (Fluad) 06/04/2019 TD, Preservative Free 06/13/2008 TDAP (age 10 and older)(Boostrix) 10/08/2022, Varicella Zoster Vaccine (Adult) 07/13/2012 documented as of this encounter Social History Tobacco Use Types Packs/Day Years Used Date Smoking Tobacco: Former Cigarettes 0.8 20 0 09/08/1959 - 09/08/1979 Smokeless Tobacco: Never Comments:no passive smoke ex posures, Quit at the age of 36. Alcohol Use Standard Drinks/Week Comments No 0 (1 standard drink = 0.6 oz pur e alcohol) PHQ-2 Answer Date Recorded PHQ Adult Total Score 2 07/26/2024 Hunger Vital Sign Answer Date Recorded Within the past 12 months, y ou worried that your food would run out before you got the money to buy more. Never true 07/26/20 24 Within the past 12 months, t he food you bought just didn't last and you didn't have money to get more. Never true 07/26/2024 Childcare Answer Date Recorded Do you feel overwhelmed with taking care of a child, family member or friend? No 07/26/2024 Does your family need help f inding childcare? (Household - for ages 0-17 years) Not on file 07/26/2024 Clothing Answer Date Recorded Have you been unable to get clothing when it was really needed? No 07/26/2024 Is your family able to get c lothes or diapers when needed? (Household - for ages 0-17 years) Not on file 07/26/2024 Personal Safety Answer Date Recorded Do you feel unsafe or have concerns for your saf ety? No 07/26/2024 Do you have concerns for you r family's safety? (Household - for ages 0-17 years) Not on file 07/26/2024 Utilities Answer Date Recorded Do you have trouble paying y our heating, water, or electric bill? No 07/26/2024 Is your family able to pay t he heat, water, or electric bill? (Household - for ages 0-17 years) Not on file 07/26/2024 Does your family have access to good internet? (Household - for ages 0-17 years) Not on file 07/26/2024 Employment Status Answer Date Recorded Are you unemployed or without regular income? No 07/26/2024 Does the household have a re gular source of income? (Household - for ages 0-17 years) Not on file 07/26/2024 Social Connections Answer Date Recorded How often do you feel lonely or isolated from those around you? Sometimes 07/26/2024 Financial Resource Strain Answer Date R ecorded Do you have any trouble payi ng for your medications, or do you think you might in the future? No 07/26/2024 Does your family have troubl e paying for medicine? (Household - for ages 0-17 years) Not on file 07/26/2024 Transportation Needs Answer Date Record ed READ ONLY Do you have troubl e getting a ride to medical visits or work? Never True 07/26/2024 Does your family have a hard time getting a ride to doctors visits? (Household - for ages 0-17 years) Not on file 07/26/2024 Has lack of transportation k ept you from medical appointments, meetings, work, or from getting things needed for daily living? Check all that apply. No 07/26/2024 Do you (or your family) have trouble finding or paying for a ride (transportation)? (Household - for ages 0-17 years) Not on file 07/26/2024 Housing Stability Answer Date Recorded Do you currently live in a s helter or have no steady place to sleep at night? No 07/26/2024 READ ONLY Do you think you a re at risk of becoming homeless? No 07/26/2024 Does your family worry about paying for your home or becoming homeless? (Household - for ages 0-17 years) Not on file 1 09/25/2023 Are you homeless or worried that you might be in the future? No 07/26/2024 Are you (or your family) beth eless or worried that you might be in the future? (Household - for ages 0-17 years) Not on file Food Insecurity Answer Date Recorded Do you need food for this week? No 07/26/2024 Are you able to get enough f ood for your family? (Household - for ages 0-17 years) Not on file 07/26/2024 Does your family need food t his week? (Household - for ages 0-17 years) Not on file 07/26/2024 Do you always have enough fo od for your family? (Household - for ages 0-17 years) Not on file 07/26/2024 Sex and Gender Information Value Date Recorded Sex Assigned at Male 08/08/2024 1:58 PM EST Legal Sex Male 5:43 AM EST Gender Identity Male 08/19/2023 4:38 PM EST Sexual Orientation Not on file Occupation Industry Job Start Date Job End Date [employer] Not on f ile Not on file Not on file documented as of this encounter Miscellaneous Notes * Telephone Encounter - Ivette Moran LPN - 08/11/2024 1:30 PM EST Patient aware and verbalized understanding, agrees to further blood work and US of the liver. He will have the blood work done on Friday when he gets the BMP for Moses Gallego PA-C (started Spironolactone on 08/09 not 08/03) * Telephone Encounter - Beverly Sanford CMA - 08/11/2024 8:57 AM EST Called and left message for pt to return call * Telephone Encounter - Eamon Felder DO - 08/03/2024 4:44 PM EST Nursing: please call Ricardo and see if he would be open to me doing some further testing on his liver including blood work and an US? * Telephone Encounter - Moses Gallego PA-C - 08/03/2024 3:55 PM ESTSigned Prescriptions: Disp Refills Spironolactone 25 MG Oral Tablet ([place]act[place]*20 Tab*3 Sig: Take 1/2 Tablets by mouth once a day on Friday, Friday, and Friday only. Authorizing Provider: MOSES GALLEGO * Telephone Encounter - Moses Gallego PA-C - 08/03/2024 3:52 PM EST Alk-phos and bilirubin have been intermittently elevated over the past 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 The gallbladder, bile ducts, and pancreas were all unremarkable via CT. Some findings may be due to heart failure. If not evaluated in the past would recommend further evaluation via PCP. Moses Gallego PA-C Department of Cardiology * Telephone Encounter - Princess Thorpe LPN - 08/03/2024 2:44 PM EST Spoke with patient by phone, gave information in this encounter. Verbalized understanding Agreed to plan of care. Orders pended. Pt asked about his increased alkaline phosphatase & bilirubin on his recent labs. * Telephone Encounter - Ammy Narayanan LPN - 08/03/2024 2:32 PM EST ----- Message from Moses Gallego sent at 08/02/2024 8:47 PM EST ----- Trial spironolactone, 12.5 mg by mouth only on Mondays, Wednesdays, and Fridays. Check a follow-up basic metabolic panel one week after starting spironolactone * Telephone Encounter - Ammy Narayanan LPN - 08/03/2024 2:32 PM EST ----- Message from Moses Gallego sent at 08/03/2024 7:23 AM EST ----- ok documented in this encounter Plan of Treatment Upcoming Encounters Date Type Department Care Team (Latest Contact Info) Description 2024 11:00 AM EST Telemedicine Psychiatry Kevin Mathews [address] [place] [address] Pippa Ryan MD [address] [place] [address] 2024 1:00 PM EST Laboratory Laboratory, [facility] [address] [place] [id number] [facility] [address] [place] [address] 08/17/2024 12:00 PM EST Office Visit Nephrology, [facility] [address] [place] [address] Karen Newsome MD [address] [place] [address] 09/17/2024 2:10 PM EST Hospital Encounter OR [facility], Operating Room [facility] [address] [place] [phone] Fabián Caballero DO [address] [place] [phone] 09/17/2024 2:10 PM EST - 09/17/2024 3:00 PM EST Surgery OR [facility], Operating Room [facility] [address] [place] [phone] Fabián Caballero, DO [address] [place] [phone] DESTROY LUMBAR SACRAL NERVE IMAGING SINGLE 09/20/2024 12:30 PM EST Imaging [facility] 2nd Floor [facility] [address] [facility] [place] [phone] Gw, Excess Time Radiology [address] [place] [address] 10/13/2024 1:00 PM EST Office Visit Cardiology, [facility] [address] [facility] [place] [address] Stephanie Tripp IV, MD [address] [place] [address] 11/26/2024 10:30 AM EDT Office Visit Cardiology, [facility] [address] [facility] [place] [address] Moses Gallego PA-C [address] [place] [address] 11/26/2024 4:00 PM EDT Office Visit [facility] [place] [address] [place] [address] Eamon Felder, DO [address] [place] [address] 12/08/2024 1:30 PM EDT Office Visit Otolaryngology [facility] [address] [place] [address] Jg Farooq PA-C [address] [place] [address] Scheduled Orders Name Type Priority Associated Diagnoses Orde r Schedule BASIC METABOLIC PANEL Lab Routine Chronic systolic congestive heart failure (HCC) Expected: 08/10/2024 (Approximate), Expires: 08/03/2025 Scheduled Procedures Name Priority Associated Diagnoses Date/Ti me DESTROY LUMBAR SACRAL NERVE IMAGING SINGLE Spondylosis of lumbar region without myelopathy or radiculopathy 09/17/2024 2:10 PM EST DESTROY LUMBAR SACRAL NERVE IMAGING ADD'L Spondylosis of lumbar region without myelopathy or radiculopathy 09/17/2024 2:10 PM EST ESOPHAGOGASTRODUODENOSCOPY ( EGD), FLEXIBLE, TRANSORAL, DIAGNOSTIC Recall Acid reflux Health Maintenance Due Date Last Done Comments Zoster Vaccines (2 of 3) 09/07/2012 07/13/2012 Adult Wellness Visit 08/25/2019 08/25/2018 COVID-19 Vaccine ( season) 2024 07/28/2021, 07/02/2021, 11/16/2020, Additional history exists Influenza Vaccine (FLU shot) (#1) 2024 05/26/2023, 06/21/2022, 07/26/2021, Additional history exists CKD PHOS USE SMARTSET 10896 09/30/202409/09, 06/18/2022, 08/17/2021, Additional history exists Albumin/Creatinine Ratio 10/30/2024 024, 10/02/2023, 06/18/2022, Additional history exists Jha's Esophagus Surveilance 01/16/2025 01/16/2022, 07/24/2021, 07/24/2021, Additional history exists GFR 01/30/2025 08/02/2024, 04/08, 10/30/2023, Additional history exists CKD HGB USE SMARTSET 77475 04/26/202504/26, 07/22/2023, 07/22/2023, Additional history exists Depression Monitoring 07/26/2025 07/26/2024 DTap/Tdap Vaccines (3 - Td or Tdap) 10/08/2032 10/08/2022, 10/26/2015, 06/13/2008 Pneumococcal Vaccine: 65+ Years Completed 10/26/2015, 06/13/2008 RETIRED - COLONOSCOPY-EVERY 5 YRS AGES 18-100 Discontinued 04/05/2020, 04/05/2020, 11/08/2014, Additional history exists HPV (Gardasil) Vaccine Aged Out No lo nger eligible based on patient's age to complete this topic Hepatitis B Vaccine Aged Out No longe r eligible based on patient's age to complete this topic MENINGOCOCCAL (MENACTRA/MENVEO) Aged Out No longer eligible based on patient's age to complete this topic documented as of this encounter Medical Devices Not on filedocumented as of this encounter Visit Diagnoses Diagnosis Chronic systolic congestive heart failure (HCC)- Primary Chronic systolic heart failure Spondylosis of lumbar region without myelopathy or radiculopathy Lumbosacral spondylosis without myelopathy documented in this encounter Advance Directives * Full Code (Latest Code Status on File) Date Activated Date Inactivated Comments 07/07/2020 12:46 AM 07/12/2020 5:11 PM This order reflects the patients wishes and were consensually agreed upon. Healthcare Agents on File Name Relationship Healthcare Agent Relationship Communication Matthieu Gray Other - (no specific identity) First Alternate Health Care Agent (per Health Care Power of Specialist Physician document) Care Teams Cell Repairer Relationship Specialty Start Date End Date Eamon Felder DO [address] [place] [address] PCP - General Family Medicine 08/25/18 documented as of this encounter
--- OUTSIDE RECORDS SUMMARY | 2024-08-15 05:03 | External Medical Summary | Summary of Care ---
Author Name Unknown Organization [facility] Address [address] [place] [address] Phone [phone] Care Team Providers Care Quality Assurance Technician Name Role Phone Eamon Felder DO Primary Care Provider Reason for Visit * Reason Comments Outpatient Testing Encounter Details Date Type Department Care Team (Late st Contact Info) Description 08/02/2024 2:20 PM EST Laboratory Laboratory, [facility] [address] [place] [address] [facility] [address] [place] [address] Dyslipidemia, goal LDL below 100; Encounter for monitoring diuretic therapy; NSVT (nonsustained ventricular tachycardia) ([facility]); Chronic atrial fibrillation (HCC) Allergies Active Allergy Reactions Criticality Noted Date Comments Dust 04/15/2011 Upper resp sx Other Allergy (See Comments) 10/23/2012 Perfume that contains kiah root causes nasal congestion documented as of this encounter (statuses as of 08/02/2024) Medications Vardenafil HCl (LEVITRA) 20 MG TabletIndication [...] (FLONASE) 50 MCG/ACT nasal spray Administer 1 [place] into nostril in the morning. Active CPAP every night at bedtime. Active B-12 1000 MCG Oral Tablet Take 1,000 mcg by mouth daily. Active Probiotic 250 MG Oral Capsule Take by mouth. Ac tive Meclizine HCl 25 MG Oral Tablet (Antivert)Indica tions:Vertigo Take 1 Tablet by mouth 3 times a day as needed for Dizziness. 30 Tablet 1 4 Active Ipratropium [place] 0.06 % Nasal Solution (Atrovent)Indica tions:Periodic breathing instill 2 sprays into each nostril three times a day if needed for allergies 15 mL 3 4 Active Vitamin D3 1.25 MG (61767 UT) Oral Tablet (Cholecalciferol ) Take 1 [...] to last 30 days) 60 Tablet 3 07/05/2024 2:19 PM EDT 4 Active Pantoprazole Sodium 40 MG Oral [...] by mouth in the morning. 4 Active documented as of this encounter (statuses as of 08/02/2024) Active Problems Problem Noted Date Diagnosed Date [...] as of this encounter (statuses as of 08/02/2024) Resolved Problems Problem Noted Date Diagnosed Date [...] as of this encounter (statuses as of 08/02/2024) Immunizations Name Administration Dates Next Due COVID-19 mRNA, LNP-s, No Pre serve, 2-Dose Series (Vsnap) 07/28/2021,07/02/2021,11/16/2020,05/2021 Pneumococcal Conjugate Vacc, 13 Valent (Prevnar) 10/26/2015 Pneumococcal Polysaccharide PPV23 (Pneumovax) 06/13/2008 Season Influenza, Quad, PF, Adjuvanted, 65+ Yrs, IM (FLUAD) 05/31/2020 Seasonal Influenza Vac., MDV , IM, 0.5 mL (Fluzone) 05/25/2014,06/09/2013,07/13/2012,01/2010,06/21/2009,07/23/2008,08/21/20 07 Seasonal Influenza, PF, 6 M & [...] Recorded Sex Assigned at Not on file Legal Sex Male 5:43 AM EST Gender Identity Male 08/19/2023 4:38 PM EST Sexual Orientation Not on file 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 on file Not on file documented as of this encounter Plan of Treatment Upcoming Encounters Date Type Department Care Team (Latest Contact Info) Description 2024 11:00 AM EST Telemedicine Psychiatry Kevin Mathews [address] [place] [phone] Pippa Ryan MD [address] [phone] 09/17/2024 2:10 PM EST Hospital Encounter [facility], Operating Room [facility] [address] [place] [phone] Fabián Caballero, [address] [place] [address] 09/17/2024 2:10 PM EST - 09/17/2024 3:00 PM EST Surgery OR [facility], Operating Room [facility] [address] [place] [phone] Fabián Caballero, [address] [place] [phone] DESTROY LUMBAR SACRAL NERVE IMAGING SINGLE 10/13/2024 1:00 PM EST Office Visit Cardiology, [facility] [address] [place] [phone] Stephanie Tripp IV, MD [address] [place] [address] 11/26/2024 10:30 AM EDT Office Visit Cardiology, [facility] [address] [place] [address] Russ Morley PA-C [address] [place] [address] 11/26/2024 4:00 PM EDT Office Visit Family Practice [facility] [address] [facility] [place] [address] Eamon Felder, [address] [facility] [place] [address] 12/08/2024 1:30 PM EDT Office Visit Otolaryngology [facility] [address] [place] [address] Jg Farooq PA-C [address] [place] [address] Pending Results Name Type Priority Associated Diagnoses Date /Time COMPREHENSIVE METABOLIC PANEL Lab Routine Dyslipidemia, goal LDL below 100 Encounter for monitoring diuretic therapy NSVT (nonsustained ventricular tachycardia) ([facility]) 08/02/2024 2:23 PM EST TSH WITH FREE T4 IF INDICATED Lab Routine Chronic atrial fibrillation (HCC) NSVT (nonsustained ventricular tachycardia) ([facility]) 08/02/2024 2:23 PM EST LDL CHOLESTEROL (DIRECT MEASURE) Lab Routine Dyslipidemia, goal LDL below 100 08/02/2024 2:23 PM EST MAGNESIUM Lab Routine NSVT (nonsustained ventricular tachycardia) ([facility]) 08/02/2024 2:23 PM EST Scheduled Procedures Name Priority Associated Diagnoses [...] Additional history exists CKD PHOS USE SMARTSET 27869 09/30/202409/09, 06/18/2022, 08/17/2021, Additional history exists GFR 10/27/2024 04/26/2024, 10/10, 09/30/2023, Additional history exists Albumin/Creatinine Ratio 10/30/2024 024, 10/02/2023, 06/18/2022, Additional history exists Jha's Esophagus Surveilance 01/16/2025 01/16/2022, 07/24/2021, 07/24/2021, Additional history exists CKD HGB USE SMARTSET 22555 04/26/202504/26, 07/22/2023, 07/22/2023, Additional history exists Depression [...] as of this encounter Visit Diagnoses Diagnosis Dyslipidemia, goal LDL below 100 Other and unspecified hyperlipidemia Encounter for monitoring diuretic therapy Encounter for therapeutic drug monitoring NSVT (nonsustained ventricular tachycardia) (HCC) Paroxysmal ventricular tachycardia Chronic atrial fibrillation (HCC) Atrial fibrillation Spondylosis of lumbar region without myelopathy or [...] Care Agent (per Health Care Power of Education Sales Consultant document) Care Teams Quality Assurance Technician Relationship Specialty Start Date End Date Eamon Felder DO [address] [place] [address] PCP - General Family Medicine 08/25/18 documented as of this encounter
--- OUTSIDE RECORDS SUMMARY | 2024-08-15 05:03 | External Medical Summary | Summary of Care ---
Author Name Unknown Organization [facility] Address [address] [place] [address] Phone [phone] Care Team Providers Care Rags Laborer Name Role Phone Eamon Felder DO Primary Care Provider [phone] Reason for Visit * Reason Onset Date Comments Test Results 08/03/2024 Encounter Details Date Type Department Care Team (Late st Contact Info) Description 08/03/2024 Refill Cardiology, [facility] [address] [place] [address] Moses Gallego PA-C [address] [place] [address] Chronic systolic congestive heart failure (HCC)* Allergies Active Allergy Reactions Criticality Noted Date Comments Dust 04/15/2011 Upper resp sx Other Allergy (See Comments) 10/23/2012 Perfume that contains kiah root causes nasal congestion documented as of this encounter (statuses as of 08/06/2024) Medications Vardenafil HCl (LEVITRA) 20 MG TabletIndication [...] (FLONASE) 50 MCG/ACT nasal spray Administer 1 [place] into nostril in the morning. Active CPAP every night at bedtime. Active B-12 1000 MCG Oral Tablet Take 1,000 mcg by mouth daily. Active Probiotic 250 MG Oral Capsule Take by mouth. Ac tive Meclizine HCl 25 MG Oral Tablet (Antivert)Indica tions:Vertigo Take 1 Tablet by mouth 3 times a day as needed for Dizziness. 30 Tablet 1 4 Active Ipratropium [place] 0.06 % Nasal Solution (Atrovent)Indica tions:Periodic breathing instill 2 sprays into each nostril three times a day if needed for allergies 15 mL 3 4 Active Vitamin D3 1.25 MG (92973 UT) Oral Tablet (Cholecalciferol ) Take 1 [...] Friday, and Friday only. 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 [...] CT of the abdomen and pelvis at [facility] on July 16, 2024 revealed a cirrhotic [...] Description 2024 11:00 AM EST Telemedicine Psychiatry Jaja Mathews [address] [phone] Pippa Ryan MD [address] [place] [address] 08/17/2024 12:00 PM EST Office Visit Nephrology, [facility] [address] [facility] [place] [address] Karen Newsome MD [address] [facility] [place] [address] 09/17/2024 2:10 PM EST Hospital Encounter OR [facility], Operating Room [facility] [address] [place] [address] Fabián Caballero, [address] [place] [address] 09/17/2024 2:10 PM EST - 09/17/2024 3:00 PM EST Surgery OR [facility], Operating Room [facility] [address] [place] [phone] Fabián Caballero, [address] [place] [phone] DESTROY LUMBAR SACRAL NERVE IMAGING SINGLE 10/13/2024 1:00 PM EST Office Visit Cardiology, [facility] [address] [place] [address] Stephanie Tripp IV, MD [address] [facility] [place] [address] 11/26/2024 10:30 AM EDT Office Visit Cardiology, [facility] [address] [place] [address] Moses Gallego PA-C [address] [place] [address] 11/26/2024 4:00 PM EDT Office Visit [facility] [address] [facility] [place] [address] Eamon Felder DO [address] [facility] [place] [address] 12/08/2024 1:30 PM EDT Office Visit Otolaryngology [facility] [address] [place] [address] Jg Farooq PA-C [address] [place] [address] Scheduled Orders Name Type Priority Associated Diagnoses [...] Additional history exists CKD PHOS USE SMARTSET 26614 09/30/202409/09, 06/18/2022, 08/17/2021, Additional history exists Albumin/Creatinine Ratio 10/30/2024 024, 10/02/2023, 06/18/2022, Additional history exists 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
--- OUTSIDE RECORDS SUMMARY | 2024-08-15 05:03 | External Medical Summary | Summary of Care ---
Author Name Unknown Organization [facility] Address [address] [place] [address] Phone [phone] Care Team Providers Care New Business Clerk Name Role Phone Eamon Felder DO Primary Care Provider [phone] Reason for Visit * Reason Onset Date Comments Test Results 08/03/2024 Encounter Details Date Type Department Care Team (Late st Contact Info) Description 08/03/2024 Refill Cardiology, [facility] [address] [place] [address] Moses Gallego PA-C [address] [place] [address] Chronic systolic congestive heart failure (HCC)* Allergies [...] (FLONASE) 50 MCG/ACT nasal spray Administer 1 [place] into nostril in the morning. Active CPAP every night at bedtime. Active B-12 1000 MCG Oral Tablet Take 1,000 mcg by mouth daily. Active Probiotic 250 MG Oral Capsule Take by mouth. Ac tive Meclizine HCl 25 MG Oral Tablet (Antivert)Indica tions:Vertigo Take 1 Tablet by mouth 3 times a day as needed for Dizziness. 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 Not on file documented as of this encounter Miscellaneous Notes * Telephone Encounter - Beverly Sanford CMA [...] CT of the abdomen and pelvis at [facility] on July 16, 2024 revealed a cirrhotic [...] Telemedicine Psychiatry Kevin Mathews [address] [place] [address] Pippa Ryan MD [address] [place] [address] 2024 1:00 PM EST Laboratory Laboratory, [facility] [address] [place] [phone] [facility] [address] [place] [address] 08/17/2024 12:00 PM EST Office Visit Nephrology, [facility] [address] [facility] [place] [address] Karen Newsome MD [address] [facility] [place] [address] 09/17/2024 2:10 PM EST Hospital Encounter OR [facility], Operating Room [facility] [address] [place] [address] Fabián Caballero, [address] [place] [address] 09/17/2024 2:10 PM EST - 09/17/2024 3:00 PM EST Surgery OR [facility], Operating Room [facility] [address] [place] [address] Fabián Caballero, DO [address] [place] [address] DESTROY LUMBAR SACRAL NERVE IMAGING SINGLE 09/20/2024 12:30 PM EST Imaging [facility] 2nd Floor [facility] [place] [address] [place] [phone] Gw, Excess Time Radiology [address] [place] [address] 10/13/2024 1:00 PM EST Office Visit [facility], [facility] [address] [facility] [place] [address] Stephanie Tripp IV, MD [address] [place] [address] 11/26/2024 10:30 AM EDT Office Visit [facility], [facility] [address] [place] [address] Moses Gallego PA-C [address] [place] [address] 11/26/2024 4:00 PM EDT Office Visit Family Practice [facility] [address] [facility] [place] [address] Eamon Felder, DO [address] [facility] [place] [address] 12/08/2024 1:30 PM EDT Office Visit Otolaryngology [facility] [address] [place] [address] Jg Farooq PA-C [address] [place] [address] Scheduled Orders Name Type Priority Associated Diagnoses [...] Additional history exists CKD PHOS USE SMARTSET 54540 09/30/202409/09, 06/18/2022, 08/17/2021, Additional history exists Albumin/Creatinine Ratio 10/30/2024 024, 10/02/2023, 06/18/2022, Additional history exists Jha's Esophagus Surveilance 01/16/2025 01/16/2022, 07/24/2021, 07/24/2021, Additional history exists GFR 01/30/2025 08/02/2024, 0805/2024, 10/30/2023, Additional history exists CKD HGB USE SMARTSET 66847 04/26/202504/26, 07/22/2023, 07/22/2023, Additional history exists Depression [...] Care Agent (per Health Care Power of Litigation Partner document) Care Teams New Business Clerk Relationship Specialty Start Date End Date Eamon Felder DO [address] [place] [address] PCP - General Family Medicine 08/25/18 documented as of this encounter
--- OUTSIDE RECORDS SUMMARY | 2024-08-15 05:03 | External Medical Summary | Summary of Care ---
Author Name Unknown Organization [facility] Address [address] [place] [address] Phone [phone] Care Team Providers Care Computer Animator Name Role Phone Eamon Felder DO Primary Care Provider [phone] Reason for Referral * Precert (Within 10 days (routine)) - Authorized Specialty Diagnoses / Procedures Referred By Contac t Referred To Contact Radiology Diagnoses Abnormal echocardiogram Procedures NM MYOCARD PERF IMG SPECT MULT STUDIES WITH PHARM INTERV Russ Morley PA-C [address] [place] [address] Phone: tel: fax: Referral ID Status Reason Start Date Expiration Date V isits Requested Visits Authorized [id number] Authorized Precert 08/02/2024 999 999 Reason for Visit * Reason Comments Follow Up 6m Encounter Details Date Type Department Care Team (Late st Contact Info) Description 08/02/2024 1:30 PM EST Office Visit Cardiology, [facility] [address] [place] [address] Russ Morley PA-C [address] [place] [address] Abnormal echocardiogram*; Chronic atrial fibrillation (HCC); Chronic systolic congestive heart failure (HCC); LBBB (left bundle branch block); Dyslipidemia, goal LDL below 100; Stage 3b chronic kidney disease (HCC); Physical deconditioning; Encounter for monitoring diuretic therapy; NSVT (nonsustained ventricular tachycardia) ([facility]) Allergies Active Allergy Reactions Criticality Noted Date [...] (FLONASE) 50 MCG/ACT nasal spray Administer 1 [place] into nostril in the morning. Active CPAP every night at bedtime. Active B-12 1000 MCG Oral Tablet Take 1,000 mcg by mouth daily. Active Probiotic 250 MG Oral Capsule Take by mouth. Ac tive Meclizine HCl 25 MG Oral Tablet (Antivert)Indica tions:Vertigo Take 1 Tablet by mouth 3 times a day as needed for Dizziness. 30 Tablet 1 4 Active Ipratropium [place] 0.06 % Nasal Solution (Atrovent)Indica tions:Periodic breathing instill 2 sprays into each nostril three times a day if needed for allergies 15 mL 3 4 Active Vitamin D3 1.25 MG (59050 UT) Oral Tablet (Cholecalciferol ) Take 1 [...] mRNA, LNP-s, No Pre serve, 2-Dose Series (Fundly) 07/28/2021,07/02/2021,11/16/2020,05/2021 Pneumococcal Conjugate Vacc, 13 Valent (Prevnar) [...] 07/26/2024 Does the household have a re lar source of income? (Household - for ages [...] Industry Job Start Date Job End Date [employer] Not on f ile Not on file Not on file documented as of this encounter Last Filed Vital Signs Vital Sign Reading Time Taken Comments Blood Pressure 120/68 08/02/2024 1:35 PM EST Pulse - - Temperature - - Respiratory Rate 16 08/02/2024 1:35 PM EST Oxygen Saturation - - Inhaled Oxygen Concentration - - Weight 113.3 kg (249 lb 12.8 oz) 08/02/2024 1:35 PM EST Height - - Body Mass Index 34.84 06/09/2024 1:28 PM EDT documented in this encounter Progress Notes * Russ Morley PA-C - 08/02/2024 1:30 PM EST History of Present Illness: Ricardo Gray is a very pleasant 83 year old male here today for routine general cardiology follow-up evaluation. Land Use Planner is Dr. Romero. Here today to discuss Zio and resting echocardiography results (see below) Shortness of breath is a little worse Retaining fluid, currently taking 1 tablet of torsemide every 3 out of 4 days with benefit, withoutadverse reaction + Weight gain (9 pounds) Inactive due to back pain CPAP utilized at nighttime History of hematuria, following with [facility] Urology. IBS is acting up. Depression remains an issue. Some lightheadedness, attributed to Wellbutrin which he does not think is helping much and plans todiscuss with psychiatry in the near future. 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 Vertigo History of laparoscopic lysis of adhesions, closure of colostomy, colon resection 2011 GERD Pernicious anemia Depression IBS Enlarged prostate History of diverticulitis Chronic low back pain, sciatica. Status post right knee arthroplasty on December 01, 2018 Patient Active Problem List Diagnosis Adjustment disorder with depressed mood Rosacea Lumbar spondylosis with myelopathy Pernicious anemia Vitamin D deficiency NONALLERGIC RHINITIS ED History of colonic polyps Irritable bowel syndrome MYRON (obstructive sleep apnea) Family history of colon cancer Dyslipidemia, goal LDL below 100 Essential tremor MARIA C (generalized anxiety disorder) Chronic atrial fibrillation (HCC) Major depressive disorder, recurrent episode, moderate (HCC) Periodic breathing Hypersomnolence disorder Periodic limb movement disorder (PLMD) Stage 3b chronic kidney disease Chronic systolic congestive heart failure (HCC) Sacroiliitis (HCC) HPTH (hyperparathyroidism) (HCC) Relationship problems Past Medical History: Diagnosis Date Abnormal results [...] 11/22/2011 Irregular heart beat Irritable bowel syndrome 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) use of anticoagulants 11/22/2011 Near syncope 05/27/2011 NONALLERGIC RHINITIS 02/14/2010 Pernicious anemia 08/05/2008 Personal history of colonic polyps 04/21/2010 Personal history of colonic polyps 11/08/14 11/08/14: adenoma of the ascending colon, repeat 5 years Polyp of nasal sinus Pure hypercholesterolemia 10/12/2013 Rosacea 05/28/2007 Short-segment Jha's esophagus 04/01/13 UPPER GI ENDOSCOPY DIAGNOSTIC performed by Shamir Lee MD at [facility], SHORT SEGMENT BARRETTS, REPEAT EGD IN 3 [...] performed by Shamir Lee MD at [facility] COLONOSCOPY, DIAGNOSTIC (RECTUM) 04/05/2020 diverticulosis / COLONOSCOPY FLEXIBLE PROXIMAL DIAGNOSTIC performed by Shamir Lee MD at END[facility]COPY [facility] EGD, FLEXIBLE, DIAGNOSTIC 04/01/2013 UPPER GI ENDOSCOPY DIAGNOSTIC performed by Shamir Lee MD at [facility], SHORT SEGMENT BARRETTS, REPEAT EGD IN 3 YEARS EGD, FLEXIBLE, DIAGNOSTIC 05/01/2016 inflammation, repeat w/ colon recall/ESOPHAGOGASTRODUODENOSCOPY (EGD), FLEXIBLE, TRANSORAL, DIAGNOSTIC performed by Shamir Lee MD at [facility] EGD, FLEXIBLE, DIAGNOSTIC 04/05/2020 gastric polyp, Barretts w/ LGD, repeat 3 mo / ESOPHAGOGASTRODUODENOSCOPY (EGD), FLEXIBLE, TRANSORAL, DIAGNOSTIC performed by Shamir Lee MD at [facility] EGD, FLEXIBLE, DIAGNOSTIC 07/24/2021 acid reflux, repeat 2 yrs / ESOPHAGOGASTRODUODENOSCOPY (EGD), FLEXIBLE, TRANSORAL, DIAGNOSTIC performed by Ravi Mendoza MD at END[facility]COPY [facility] EGD, FLEXIBLE, DIAGNOSTIC 01/16/2022 acid reflux, repeat 2 yrs / [facility] EGD, FLEXIBLE, W/BIOPSY 08/23/2008 biopsies--mild chronic gastritis with Barretts, negative for H.Pylori and celiac--repeat EGD 1 year EGD, FLEXIBLE, W/BIOPSY 02/21/2010 bxs do not show any evidence of Barretts repeat in 3 years EGD, FLEXIBLE,W/ENDOSCOPIC US 11/24/2020 Jha, gastric polyp, GB sludge, repeat EGD 6 mo / [facility] EXPLORATION OF ABDOMEN 11/12/2011 Exploratory lap, sigmoid colon resection, hanna procedure 11/12/11 Dr. Baez at [facility] INFORMATION 02/11/2012 Laparoscopic lysis of adhesions, closure of colostomy, colon resection 02/11/12 Dr. Baez INFORMATION Laser procedure of OD for pressure/?glaucoma INJECT DX/THER SUBSTANCE INTERLAMINAR LUMBAR/SACRAL W IMAGE GUIDE 07/13/2020 INJECTION SPINE LUMBAR OR SACRAL performed by Master Faustin DO at OR [facility] INJECT DX/THER SUBSTANCE INTERLAMINAR LUMBAR/SACRAL W IMAGE GUIDE 03/06/2023 INJECTION SPINE LUMBAR OR SACRAL performed by Fabián Caballero DO at [facility] INJECT DX/THER SUBSTANCE INTERLAMINAR LUMBAR/SACRAL W IMAGE GUIDE 11/19/2023 INJECTION SPINE LUMBAR OR SACRAL performed by Fabián Caballero DO at [facility] L-/S-SPINE PARAVERTEBRAL FACET INJ,1 LEVEL 06/07/2024 L-/S-SPINE PARAVERTEBRAL FACET INJ, 1 LEVEL performed by Fabián Caballero DO at [facility] L-/S-SPINE PARAVERTEBRAL FACET INJ,1 LEVEL 07/07/2024 L-/S-SPINE PARAVERTEBRAL FACET INJ, 1 LEVEL performed by Fabián Caballero DO at [facility] L-/S-SPINE PARAVERTEBRL FACET INJ,2 LEVELS 06/07/2024 L-/S-SPINE PARAVERTEBRAL FACET INJ, 2 LEVELS performed by Fabián Caballero DO at [facility] L-/S-SPINE PARAVERTEBRL FACET INJ,2 LEVELS 07/07/2024 L-/S-SPINE PARAVERTEBRAL FACET INJ, 2 LEVELS performed by Fabián Caballero DO at OR [facility] MISCELLANEOUS ORDER ([facility] ONLY) 10/09/2001 carpal tunnel surgery right hand REMOVAL OF APPENDIX Appendectomy REMOVAL OF TONSILS, UNDER AGE 12 SACROILIAC JOINT INJECT W/GUIDANCE 02/06/2022 INJECTION SACROILIAC JOINT performed by Master Faustin DO at [facility] SACROILIAC JOINT INJECT W/GUIDANCE 12/25/2022 INJECTION SACROILIAC JOINT performed by Master Faustin DO at [facility] SINUS SURGERY PROCEDURE NEC 09/08/2007 ? R endoscopic procedure/polypectomy - Dr. Yuan Family History Problem Relation Name Age of Onset Cancer Mother colon Stroke Father Multiple Eye Problems None Denies [...] non-medical: Not on file Occupational History Occupation: [employer] Employer: [employer] Tobacco Use Smoking status: Former Smoker Packs/day: 0.75 Years: 20.00 Pack years: 15.00 Types: Cigarettes Last attempt to quit: 09/08/1979 Years since quittin.3 Smokeless tobacco: Never Used Tobacco comment: no passive smoke exposures, Quit at the age of 36. 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 CPAP every night at bedtime. B-12 1000 MCG Oral Tablet Take 1,000 mcg by mouth daily. Probiotic 250 MG Oral Capsule Take by mouth. Meclizine HCl 25 MG Oral Tablet (Antivert) Take 1 Tablet by mouth 3 times a day as needed for Dizziness. 30 Tablet 1 Ipratropium [place] 0.06 % Nasal Solution (Atrovent) instill 2 sprays into each nostril three timesa day if needed for allergies 15 mL 3 Vitamin D3 1.25 MG (85889 UT) Oral Tablet (Cholecalciferol) Take 1 Tablet by mouth once a week. 4 Tablet 3 Tamsulosin HCl 0.4 MG Oral Capsule (Flomax) Take 1 Capsule by mouth at bedtime. 90 Capsule 3 Hyoscyamine Sulfate 0.125 MG Sublingual Tablet Sublingual (Levsin) One pill by mouth or under the tongue every 4 hours as needed for abdominal pain 40 Tablet 4 Torsemide 10 MG Oral Tablet (Demadex) Take 1/2 or 1 tablet one to two days per week only as needed 6 Tablet 3 Doxycycline Monohydrate 50 MG Oral Capsule Take 50 mg by mouth daily. 30 Capsule 11 Cholestyramine 4 GM Oral Packet (Questran) One packet daily in mid afternoon, mixed with liquid. 60Packet 5 LORazepam 1 MG Oral Tablet (Ativan) Take 1/2 to 1 tablet by mouth up to 3 times a day as needed foranxiety (quantity to last 30 days) 60 Tablet 3 Pantoprazole Sodium 40 MG Oral Tablet Delayed Release (Protonix) TAKE 1 TABLET BY MOUTH TWICE A DAY30 MINUTES BEFORE MORNING AND EVENING MEALS 180 Tablet 1 Mckinley 2 % External Pad (Erythromycin) APPLY TOPICALLY TO FACE DAILY FOR ROSACEA DIRECTED BY PRESCRIBER 60 Each 5 Metoprolol Succinate ER 25 MG Oral Tablet Extended Release 24 Hour (toPROL XL) Take 0.5 Tablets by mouth in the morning and 0.5 Tablets before bedtime. 90 Tablet 3 Apixaban 2.5 MG Oral Tablet (Eliquis) Take 1 Tablet by mouth in the morning and 1 Tablet before bedtime. 180 Tablet 3 buPROPion HCl ER (XL) 150 MG Oral Tablet Extended Release 24 Hour (Wellbutrin XL) Take 1 Tablet by mouth in the morning. 90 Tablet 1 No current facility-administered medications for this visit. OBJECTIVE/PHYSICAL EXAMINATION: BP 120/68 (BP Site: Left Arm) | Resp 16 | Wt 113.3 kg (249 lb 12.8 oz) | BMI 34.84 kg/m | BSA 2.38 m General: A&Ox3. NAD. HEENT: Normocephalic. Atraumatic. PER. Conjunctiva pink, sclera clear. No carotid bruits. Normal JVP. Heart: Distant heart sounds. Irregularly irregular at 70 bpm. PMI is nondisplaced. Lungs: Bibasilar rales. Abdomen: Umbilical hernia. +BS. Soft. Nontender. No masses or organomegaly. Extremities: 1-2+ distal left greater than right lower extremity edema. No cellulitis. Limited neurological examination is without focal deficits. [...] The estimated pulmonary artery systolic pressure is 38 mm Hg. Compared to last available study changes [...] ratio. May 12, 2020 TTE Interpretation Summary ([facility], Dr. Romero): Technically difficult. Rate controlled atrial [...] is present. There is mild pulmonary regurgitation. July 2024 Zio Monitor: 5 Ventricular Tachycardia runs occurred, the run with the fastest interval lasting 5 beats with a max rate of 152 bpm, the longest lasting 15.4 secs with an avg rate of 114bpm. Bundle Branch Block/IVCD was present. Atrial Fibrillation occurred continuously (100% burden),ranging from 41-95 bpm (avg of 64 bpm). Isolated VEs were frequent (6.2%, 09563), VE Couplets were occasional (1.6%, 2780), and VE Triplets were rare (<1.0%, 91). Ventricular Bigeminy and Trigeminy were present. No patient marker or diary entries were recorded. Impression: Atrial fibrillation with bundle-branch block configuration, average rate 64 beats per minute. Frequent ventricular ectopy ( 6.2% ) with occasional couplets triplets were noted. Five runs of ventricular tachycardia were noted longest 29 beats in duration at a rate of 114 beats per minute July 12, 2024 TTE Interpretation Summary (as per Dr. Romero): The LV wall thickness is mildly increased (concentric). The septal motion is abnormal consistent with left bundle branch block. The remaining left ventricular wall segments are mildly hypokinetic. The qualitative LV ejection fraction is 35-39% (moderately reduced).The left atrium is moderately enlarged. Mild aortic valve regurgitation is present. Mild tricuspid regurgitation is present. The aortic root is mildly enlarged. Compared to the previous study dated 12/26/2022 there has been interval decline in the left ventricular ejection fraction. ASSESSMENT: Systolic congestive heart failure. Chronic left bundle branch block. Interval decline in the left ventricular ejection fraction, EF 35-39%. Volume status: Hypervolemic. Chronic atrial fibrillation. Anticoagulated with renally dosed Eliquis given age and creatinine equal to or greater than 1.5 mg/dL Stable ambulatory dysfunction; benefits of anticoagulation appears to be greater than the risks at this point. Zio monitor in July 2024 with chronic atrial fibrillation with an average heart rate of 64 bpm.Frequent ventricular ectopy (6.2% burden) observed along with occasional couplets, triplets, and five runs of ventricular tachycardia wiht the longest lasting 29 beats in duration at a rate of 114 bpm. 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 LDL cholesterol 82 mg/dL on 06/06/2023. RECOMMENDATIONS/PLAN: Increase torsemide to daily for now. ? Future additional of low dose (12.5 mg MWF) spironolactone. Check comprehensive metabolic panel, magnesium, TSH, and LDL cholesterol today Patient with past intolerance to INDIRA/ARB; future considerations to be made for alternative therapy with long-acting nitrates then hydralazine Ensure proper treatment of sleep apnea (followed by [facility]) Refer for Lexiscan nuclear stress testing Refer to Electrophysiology, decrease EF, VT General cardiology follow-up in 2-3 months or as needed. ER with emergencies. Russ Morley PA-C Department of Cardiology I spent a total of 30-39 minutes (exact time 36 mins) on the date of service in preparation, delivery, and documentation of the care provided to Ricardo Gray excluding any time spent in the performance of separately billed services. This visit involved medical care services related to at leastone serious condition or complex condition requiring ongoing care. This chart was completed in partutilizing [employer] Speech Voice Recognition Software. Grammatical errors, random [...] documented in this encounter Nursing Notes * Sharyn Hallman CMA - 08/02/2024 1:28 PM EST Examination Room: 2 Name: Ricardo Gary Date of : (1940). Reason for Visit: rtc Interim Hospitalization(s): [facility] Problems/Concerns: Thinks light-headedness is caused by wellbutrin. Chest Pain/SOB: States SOB is getting a little worse, but not moving much or exercising d/t back pain [facility] Discussed: Yes [facility] is a way you can [...] Telemedicine Psychiatry Kevin Mathews [address] [phone] Pippa Ryan MD [address] [phone] 09/17/2024 2:10 PM EST Hospital Encounter [facility], Operating Room [facility] [address] [place] [phone] Fabián Caballero, DO [address] [place] [phone] 09/17/2024 2:10 PM EST - 09/17/2024 3:00 PM EST Surgery [facility], Operating Room [facility] [address] [place] [phone] Fabián Caballero, DO [address] [place] [phone] DESTROY LUMBAR SACRAL NERVE IMAGING SINGLE 10/13/2024 1:00 PM EST Office Visit Cardiology, [facility] [address] [facility] [place] [address] Stephanie Tripp [place], MD [address] [place] [address] 11/26/2024 10:30 AM EDT Office Visit Cardiology, [facility] [address] [facility] [place] [address] Russ Morley, PA-C [address] [place] [phone] 11/26/2024 4:00 PM EDT Office Visit Family Practice [facility] [address] [place] [address] Eamon Felder, DO [address] [place] [address] 12/08/2024 1:30 PM EDT Office Visit Otolaryngology [facility] [address] [place] [address] Jg Farooq PA-C [address] [place] [phone] Pending Results Name Type Priority Associated Diagnoses Date /Time TSH WITH FREE T4 IF INDICATED Lab Routine Chronic atrial fibrillation (HCC) NSVT (nonsustained ventricular tachycardia) (HCC) 08/02/2024 2:23 PM EST LDL CHOLESTEROL (DIRECT MEASURE) Lab Routine Dyslipidemia, goal LDL below 100 08/02/2024 2:23 PM EST MAGNESIUM Lab Routine NSVT (nonsustained ventricular tachycardia) (HCC) 08/02/2024 2:23 PM EST Scheduled Orders Name Type Priority Associated Diagnoses Orde r Schedule TSH WITH FREE T4 IF INDICATED Lab Routine Chronic atrial fibrillation (HCC) NSVT (nonsustained ventricular tachycardia) (HCC) Expected: 08/02/2024, Expires: 08/02/2025 LDL CHOLESTEROL (DIRECT MEASURE) Lab Routine Dyslipidemia, goal LDL below 100 Expected: 08/02/2024, Expires: 08/02/2025 NM MYOCARD PERF IMG SPECT MULT STUDIES WITH PHARM INTERV Cardiology Routine Abnormal echocardiogram Expected: 08/02/2024 (Approximate), Expires: 09/01/2025 MAGNESIUM Lab Routine NSVT (nonsustained ventricular tachycardia) (HCC) Expected: 08/02/2024, Expires: 08/02/2025 Scheduled Procedures Name Priority Associated Diagnoses Date/Ti [...] Additional history exists CKD PHOS USE SMARTSET 15234 09/30/202409/09, 06/18/2022, 08/17/2021, Additional history exists Albumin/Creatinine Ratio 10/30/2024 024, 10/02/2023, 06/18/2022, Additional history exists Jha's Esophagus Surveilance 01/16/2025 01/16/2022, 07/24/2021, 07/24/2021, Additional history exists GFR 01/30/2025 08/02/2024, 04/08, 10/30/2023, Additional history exists CKD HGB USE SMARTSET 62999 04/26/202504/26, 07/22/2023, 07/22/2023, Additional history exists Depression [...] as of this encounter Results * (ABNORMAL) COMPREHENSIVE METABOLIC PANEL (08/02/2024 2:23 PM EST) BUN 24(H) 6 - 20 mg/dL 08/02/2024 3:45 PM EST [facility] CREATININE 1.6(H) 0.6 - 1.2 mg/dL 08/02/2024 3:45 PM EST [facility] EGFR 43(L) >=60 mL/min 08/02/2024 3:45 PM EST [facility] Comment:eGFR is calculated b ased on the CKD-EPI 2020 equation. SODIUM 142 135 - 146 mmol/L 08/02/2024 3:45 PM EST [facility] POTASSIUM 3.5 3.5 - 5.1 mmol/L 08/02/2024 3:45 PM EST [facility] CHLORIDE 102 98 - 107 mmol/L 08/02/2024 3:45 PM EST [facility] CO2 29 22 - 32 mmol/L 08/02/2024 3:45 PM EST [facility] ANION GAP 11 7 - 15 mmol/L 08/02/2024 3:45 PM EST [facility] GLUCOSE 92 70 - 120 mg/dL 08/02/2024 3:45 PM EST [facility] Albumin 3.8 3.8 - 5.0 g/dL 08/02/2024 3:45 PM EST [facility] AST 19 10 - 50 U/L 08/02/2024 3:45 PM EST [facility] Alkaline Phosphatase 148(H) 35 - 130 U/L 08/02/2024 3:45 PM EST [facility] Bilirubin, Total 1.3(H) <=1.2 mg/dL 08/02/2024 3:45 PM EST [facility] CALCIUM 9.4 8.4 - 10.2 mg/dL 08/02/2024 3:45 PM EST [facility] Protein 6.5 6.0 - 8.3 g/dL 08/02/2024 3:45 PM EST [facility] ALT 11 10 - 50 U/L 08/02/2024 3:45 PM EST [facility] Blood Venous blood specimen / Unknown Venipuncture / Unknown 08/02/2024 2:23 PM EST 08/02/2024 2:23 PM EST Russ Morley PA-C LAB BLOOD ORDERABLES Final Result [facility] [place] [id number] documented in this encounter Visit Diagnoses Diagnosis Abnormal echocardiogram- Primary Nonspecific (abnormal) findings on radiological and other examination of other intrathoracic organs Chronic atrial fibrillation (HCC) Atrial fibrillation Chronic systolic congestive heart failure (HCC) Chronic systolic heart failure LBBB (left bundle branch block) Other left bundle branch block Dyslipidemia, goal LDL below 100 Other and unspecified hyperlipidemia Stage 3b chronic kidney disease (HCC) Physical deconditioning Debility, unspecified Encounter for monitoring diuretic therapy Encounter for therapeutic drug monitoring NSVT (nonsustained ventricular tachycardia) (HCC) Paroxysmal ventricular tachycardia Spondylosis of lumbar region without myelopathy or [...] Care Agent (per Health Care Power of Polish Compounder document) Care Teams Computer Animator Relationship Specialty Start Date End Date Eamon Felder DO [address] [place] [address] PCP - General Family Medicine 08/25/18 documented as of this encounter"
--- OUTSIDE RECORDS SUMMARY | 2024-08-15 05:03 | External Medical Summary | Summary of Care ---
Author Name Unknown Organization [facility] Address [address] [place] [address] Phone [phone] Care Team Providers Care Machine Maintenance Supervisor Name Role Phone Eamon Felder DO Primary Care Provider [phone] Encounter Details Date Type Department Care Team (Late st Contact Info) Description 08/06/2024 Orders Only PATIENT PORTAL DO NOT DELETE THIS DEPT USED BY [place] [address] Allergies Active Allergy Reactions Criticality Noted Date [...] (FLONASE) 50 MCG/ACT nasal spray Administer 1 [place] into nostril in the morning. Active CPAP every night at bedtime. Active B-12 1000 MCG Oral Tablet Take 1,000 mcg by mouth daily. Active Probiotic 250 MG Oral Capsule Take by mouth. Ac tive Meclizine HCl 25 MG Oral Tablet (Antivert)Indica tions:Vertigo Take 1 Tablet by mouth 3 times a day as needed for Dizziness. 30 Tablet 1 4 Active Ipratropium [place] 0.06 % Nasal Solution (Atrovent)Indica tions:Periodic breathing instill 2 sprays into each nostril three times a day if needed for allergies 15 mL 3 4 Active Vitamin D3 1.25 MG (94640 UT) Oral Tablet (Cholecalciferol ) Take 1 [...] mRNA, LNP-s, No Pre serve, 2-Dose Series (E[employer]) 07/28/2021,07/02/2021,11/16/2020,05/2021 Pneumococcal Conjugate Vacc, 13 Valent (Prevnar) [...] Industry Job Start Date Job End Date [employer] Not on f ile Not on file Not on file documented as of this encounter Plan of Treatment Upcoming Encounters Date Type Department Care Team (Latest Contact Info) Description 2024 11:00 AM EST Telemedicine Psychiatry Kevin Mathews [address] [place] [address] Pippa Ryan MD [address] [place] [address] 08/17/2024 12:00 PM EST Office Visit Nephrology, [facility] [address] [facility] [place] [address] Karen Newsome MD [address] [facility] [place] [address] 09/17/2024 2:10 PM EST Hospital Encounter OR [facility], Operating Room [facility] [address] [place] [phone] Fabián Caballero, [address] [place] [address] 09/17/2024 2:10 PM EST - 09/17/2024 3:00 PM EST Surgery OR [facility], Operating Room [facility] [address] [place] [phone] Fabián Caballero, [address] [place] [phone] DESTROY LUMBAR SACRAL NERVE IMAGING SINGLE 10/13/2024 1:00 PM EST Office Visit Cardiology, [facility] 132 [facility] [place] [address] Stephanie Tripp IV, MD [address] [facility] [address] 11/26/2024 10:30 AM EDT Office Visit Cardiology, [facility] [address] [facility] [place] [address] Russ Morley PA-C 132 [facility] [place] [address] 11/26/2024 4:00 PM EDT Office Visit Family Practice [facility] [address] [place] [address] Eamon Felder, [address] [facility] [place] [address] 12/08/2024 1:30 PM EDT Office Visit Otolaryngology [facility] [address] [facility] [place] [address] Jg Fraooq PA-C [address] [facility] [place] [address] Scheduled Procedures Name Priority Associated Diagnoses Date/Ti [...] Additional history exists CKD PHOS USE SMARTSET 42865 09/30/202409/09, 06/18/2022, 08/17/2021, Additional history exists Albumin/Creatinine Ratio 10/30/2024 024, 10/02/2023, 06/18/2022, Additional history exists Jha's Esophagus Surveilance 01/16/2025 01/16/2022, 07/24/2021, 07/24/2021, Additional history exists GFR 01/30/2025 08/02/2024, 04/08, 10/30/2023, Additional history exists CKD HGB USE SMARTSET 37156 04/26/202504/26, 07/22/2023, 07/22/2023, Additional history exists Depression [...] filedocumented as of this encounter Advance Directives * Full Code (Latest Code Status on File) Date Activated Date Inactivated Comments 07/07/2020 12:46 AM 07/12/2020 5:11 PM This order reflects the patients wishes and were consensually agreed upon. Healthcare Agents on File Name Relationship Healthcare Agent Relationship Communication Matthieu Gray Other - (no specific identity) First Alternate Health Care Agent (per Health Care Power of Fast Foods Worker document) Care Teams Machine Maintenance Supervisor Relationship Specialty Start Date End Date Eamon Felder DO [address] [place] [address] PCP - General Family Medicine 08/25/18 documented as of this encounter
--- OUTSIDE RECORDS SUMMARY | 2024-08-15 05:03 | External Medical Summary | Summary of Care ---
Author Name Unknown Organization [facility] Address [address] [place] [address] Phone [phone] Care Team Providers Care Local Tanker Truck Driver Name Role Phone Eamon Felder DO Primary Care Provider Reason for Visit * Reason Onset Date Comments Advice 08/02/2024 Encounter Details Date Type Department Care Team (Late st Contact Info) Description 08/02/2024 Telephone Sleep Disorders Ctr [facility] [address] [place] [phone] Herlinda Renee CRNP 132 [facility] [place] [address] Advice Allergies Active Allergy Reactions Criticality Noted Date Comments Dust 04/15/2011 Upper resp sx Other Allergy (See Comments) 10/23/2012 Perfume that contains kiah root causes nasal congestion documented as of this encounter (statuses as of 08/03/2024) Medications Vardenafil HCl (LEVITRA) 20 MG TabletIndication [...] (FLONASE) 50 MCG/ACT nasal spray Administer 1 [place] into nostril in the morning. Active CPAP every night at bedtime. Active B-12 1000 MCG Oral Tablet Take 1,000 mcg by mouth daily. Active Probiotic 250 MG Oral Capsule Take by mouth. Ac tive Meclizine HCl 25 MG Oral Tablet (Antivert)Indica tions:Vertigo Take 1 Tablet by mouth 3 times a day as needed for Dizziness. 30 Tablet 1 4 Active Ipratropium [place] 0.06 % Nasal Solution (Atrovent)Indica tions:Periodic breathing instill 2 sprays into each nostril three times a day if needed for allergies 15 mL 3 4 Active Vitamin D3 1.25 MG (23083 UT) Oral Tablet (Cholecalciferol ) Take 1 [...] as of this encounter (statuses as of 08/03/2024) Active Problems Problem Noted Date Diagnosed Date [...] as of this encounter (statuses as of 08/03/2024) Resolved Problems Problem Noted Date Diagnosed Date [...] as of this encounter (statuses as of 08/03/2024) Immunizations Name Administration Dates Next Due COVID-19 mRNA, LNP-s, No Pre serve, 2-Dose Series ([employer]ideScreen Networks) 07/28/2021,07/02/2021,11/16/2020,05/2021 Pneumococcal Conjugate Vacc, 13 Valent (Prevnar) [...] Industry Job Start Date Job End Date [employer] Not on f ile Not on file Not on file documented as of this encounter Miscellaneous Notes * Telephone Encounter - Herlinda Renee CRNP - 08/03/2024 3:59 PM EST See other encounter. * Telephone Encounter - Mary Lyles LPN - 08/02/2024 2:42 PM EST Pt stopped in the office to ask for his pressure to be adjusted. Current DL has been given to the provider for review documented in this encounter Plan of Treatment Upcoming Encounters Date Type Department Care Team (Latest Contact Info) Description 2024 11:00 AM EST Telemedicine Psychiatry Kevin Mathews [address] [place] [phone] Pippa Ryan MD [address] [place] [phone] 09/17/2024 2:10 PM EST Hospital Encounter OR [facility], Operating Room [facility] [address] [place] [phone] Fabián Caballero DO [address] [place] [address] 09/17/2024 2:10 PM EST - 09/17/2024 3:00 PM EST Surgery OR [facility], Operating Room [facility] [address] [place] [phone] Fabián Caballero DO [address] [place] [phone] DESTROY LUMBAR SACRAL NERVE IMAGING SINGLE 10/13/2024 1:00 PM EST Office Visit Cardiology, [facility] [address] [place] [address] Stephanie Tripp IV, MD [address] [place] [address] 11/26/2024 10:30 AM EDT Office Visit Cardiology, [facility] [address] [place] [address] Russ Morley PA-C [address] [place] [address] 11/26/2024 4:00 PM EDT Office Visit Family Practice [facility] [address] [place] [address] Eamon Felder, [address] [place] [address] 12/08/2024 1:30 PM EDT Office Visit Otolaryngology [facility] [address] [place] [address] Jg Farooq PA-C [address] [place] [address] Scheduled Procedures Name Priority Associated Diagnoses Date/Ti [...] Wellness Visit 08/25/2019 08/25/2018 COVID-19 Vaccine ( - season) 2024 07/28/2021, 07/02/2021, 11/16/2020, Additional history exists Influenza Vaccine (FLU shot) (#1) 2024 05/26/2023, 06/21/2022, 07/26/2021, Additional history exists CKD PHOS USE SMARTSET 87776 09/30/202409/09, 06/18/2022, 08/17/2021, Additional history exists Albumin/Creatinine Ratio 10/30/2024 024, 10/02/2023, 06/18/2022, Additional history exists Jha's Esophagus Surveilance 01/16/2025 01/16/2022, 07/24/2021, 07/24/2021, Additional history exists GFR 01/30/2025 08/02/2024, 08/05/2024, 10/30/2023, Additional history exists CKD HGB USE SMARTSET 13361 04/26/202504/26, 07/22/2023, 07/22/2023, Additional history exists Depression [...] Care Agent (per Health Care Power of Millwright Instructor document) Care Teams Local Tanker Truck Driver Relationship Specialty Start Date End Date Eamon Felder DO [address] [facility] [place] [address] PCP - General Family Medicine 08/25/18 documented as of this encounter
--- OUTSIDE RECORDS SUMMARY | 2024-08-15 05:03 | External Medical Summary | Summary of Care ---
Author Name Unknown Organization [facility] Address [address] [place] [address] Phone [phone] Care Team Providers Care Touch Up Edger Name Role Phone Eamon Felder DO Primary Care Provider [phone] Reason for Visit * Reason Onset Date Comments Appointment 08/02/2024 Encounter Details Date Type Department Care Team (Late st Contact Info) Description 08/02/2024 Telephone Cardiology, [facility] [address] [place] [address] Russ Morley PA-C [address] [place] [address] Appointment Allergies Active Allergy Reactions Criticality Noted Date Comments Dust 04/15/2011 Upper resp sx Other Allergy (See Comments) 10/23/2012 Perfume that contains kiah root causes nasal congestion documented as of this encounter (statuses as of 08/09/2024) Medications Vardenafil HCl (LEVITRA) 20 MG TabletIndication [...] (FLONASE) 50 MCG/ACT nasal spray Administer 1 [place] into nostril in the morning. Active CPAP every night at bedtime. Active B-12 1000 MCG Oral Tablet Take 1,000 mcg by mouth daily. Active Probiotic 250 MG Oral Capsule Take by mouth. Ac tive Meclizine HCl 25 MG Oral Tablet (Antivert)Indica tions:Vertigo Take 1 Tablet by mouth 3 times a day as needed for Dizziness. 30 Tablet 1 4 Active Ipratropium [place] 0.06 % Nasal Solution (Atrovent)Indica tions:Periodic breathing instill 2 sprays into each nostril three times a day if needed for allergies 15 mL 3 4 Active Vitamin D3 1.25 MG (36605 UT) Oral Tablet (Cholecalciferol ) Take 1 [...] as of this encounter (statuses as of 08/09/2024) Active Problems Problem Noted Date Diagnosed Date [...] as of this encounter (statuses as of 08/09/2024) Resolved Problems Problem Noted Date Diagnosed Date [...] as of this encounter (statuses as of 08/09/2024) Immunizations Name Administration Dates Next Due COVID-19 mRNA, LNP-s, No Pre serve, 2-Dose Series ([employer]) 07/28/2021,07/02/2021,11/16/2020,05/2021 Pneumococcal Conjugate Vacc, 13 Valent (Prevnar) [...] 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 Not on file documented as of this encounter Miscellaneous Notes * Telephone Encounter - Desirae Rosas OSA - 08/09/2024 8:24 AM EST 08/09/24 LMOM FOR PT TO CALL BACK TO SCHEDULE, LETTER SENT KF * Telephone Encounter - Desirae Rosas OSA - 08/04/2024 8:08 AM EST 08/04/24 LMOM FOR PT TO CALL BACK AND SCHEDULE KF * Telephone Encounter - Desirae Rosas OSA - 08/02/2024 2:22 PM EST 08/02/24 CALLED PT AND HE ANSWERED THEN HE WAS JUST TALKING IN THE BACKGROUND KF * Telephone Encounter - Tye Kovacs OSA - 08/02/2024 2:18 PM EST Patient is ordered a cardiac study, please assist patient to schedule, thank you. NM MYOCARD PERF IMG SPECT MULT STUDIES WITH PHARM INTERV [69685.02] (Order [id number]) documented in this encounter Plan of Treatment Upcoming Encounters Date Type Department Care Team (Latest Contact Info) Description 2024 11:00 AM EST Telemedicine Psychiatry Jaja Mathews [address] [place] [phone] Pippa Ryan MD [address] [place] [address] 2024 1:00 PM EST Laboratory Laboratory, [facility] [address] [place] [phone] [facility] [address] [facility] [place] [phone] 08/17/2024 12:00 PM EST Office Visit Nephrology, [facility] 200 [facility] [place] [address] Karen Newsome MD [address] [facility] [place] [address] 09/17/2024 2:10 PM EST Hospital Encounter OR [facility], Operating Room [facility]SS [address] [place] [address] Fabián Caballero, [address] [place] [phone] 09/17/2024 2:10 PM EST - 09/17/2024 3:00 PM EST Surgery OR [facility], Operating Room [facility] [address] [place] [phone] Fabián Caballero, DO [address] [place] [phone] DESTROY LUMBAR SACRAL NERVE IMAGING SINGLE 10/13/2024 1:00 PM EST Office Visit Cardiology, [facility] [address] [place] [phone] Stephanie Tripp IV, MD [address] [place] [address] 11/26/2024 10:30 AM EDT Office Visit Cardiology, [facility] [address] [place] [address] Russ Morley PA-C [address] [place] [address] 11/26/2024 4:00 PM EDT Office Visit Family Practice [facility] [address] [place] [address] Eamon Felder, 200 [facility] [place] [address] 12/08/2024 1:30 PM EDT Office Visit Otolaryngology [facility] [address] [place] [address] Jg Farooq PA-C [address] [place] [address] Scheduled Procedures Name Priority Associated Diagnoses Date/Ti [...] Additional history exists CKD PHOS USE SMARTSET 37540 09/30/202409/09, 06/18/2022, 08/17/2021, Additional history exists Albumin/Creatinine Ratio 10/30/2024 024, 10/02/2023, 06/18/2022, Additional history exists Jha's Esophagus Surveilance 01/16/2025 01/16/2022, 07/24/2021, 07/24/2021, Additional history exists GFR 01/30/2025 08/02/2024, 04/08, 10/30/2023, Additional history exists CKD HGB USE SMARTSET 73138 04/26/202504/26, 07/22/2023, 07/22/2023, Additional history exists Depression [...] Care Agent (per Health Care Power of Cast Iron Drain Pipe Layer document) Care Teams Touch Up Edger Relationship Specialty Start Date End Date Eamon Felder DO [address] [place] [address] PCP - General Family Medicine 08/25/18 documented as of this encounter
--- OUTSIDE RECORDS SUMMARY | 2024-08-15 05:03 | External Medical Summary | Summary of Care ---
Author Name Unknown Organization [facility] Address [address] [place] [address] Phone [phone] Care Team Providers Care Clinical Pathologist Name Role Phone Eamon Felder DO Primary Care Provider Reason for Visit * Reason Onset Date Comments Appointment 08/02/2024 Encounter Details Date Type Department Care Team (Late st Contact Info) Description 08/02/2024 Telephone Cardiology, [facility] [address] [place] [address] Russ Morley PA-C [address] [place] [address] Appointment Allergies Active Allergy Reactions Criticality Noted Date Comments Dust 04/15/2011 Upper resp sx Other Allergy (See Comments) 10/23/2012 Perfume that contains kiah root causes nasal congestion documented as of this encounter (statuses as of 08/04/2024) Medications Vardenafil HCl (LEVITRA) 20 MG TabletIndication [...] (FLONASE) 50 MCG/ACT nasal spray Administer 1 [place] into nostril in the morning. Active CPAP every night at bedtime. Active B-12 1000 MCG Oral Tablet Take 1,000 mcg by mouth daily. Active Probiotic 250 MG Oral Capsule Take by mouth. Ac tive Meclizine HCl 25 MG Oral Tablet (Antivert)Indica tions:Vertigo Take 1 Tablet by mouth 3 times a day as needed for Dizziness. 30 Tablet 1 4 Active Ipratropium [place] 0.06 % Nasal Solution (Atrovent)Indica tions:Periodic breathing instill 2 sprays into each nostril three times a day if needed for allergies 15 mL 3 4 Active Vitamin D3 1.25 MG (48031 UT) Oral Tablet (Cholecalciferol ) Take 1 [...] as of this encounter (statuses as of 08/04/2024) Active Problems Problem Noted Date Diagnosed Date [...] as of this encounter (statuses as of 08/04/2024) Resolved Problems Problem Noted Date Diagnosed Date [...] as of this encounter (statuses as of 08/04/2024) Immunizations Name Administration Dates Next Due COVID-19 mRNA, LNP-s, No Pre serve, 2-Dose Series ([employer]HTER Interactive) 07/28/2021,07/02/2021,11/16/2020,05/2021 Pneumococcal Conjugate Vacc, 13 Valent (Prevnar) [...] 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 [...] IMG SPECT MULT STUDIES WITH PHARM INTERV [33865.02] (Order [id number]) documented in this encounter Plan of Treatment Upcoming Encounters Date Type Department Care Team (Latest Contact Info) Description 2024 11:00 AM EST Telemedicine Psychiatry Kevin Mathews [address] [place] [address] Pippa Ryan MD [address] [place] [address] 09/17/2024 2:10 PM EST Hospital Encounter OR [facility], Operating Room [facility] [address] [place] [phone] Fabián Caballero, DO [address] [place] [phone] 09/17/2024 2:10 PM EST - 09/17/2024 3:00 PM EST Surgery OR [facility], Operating Room [facility] [address] [place] [phone] Fabián Caballero, DO [address] [place] [phone] DESTROY LUMBAR SACRAL NERVE IMAGING SINGLE 10/13/2024 1:00 PM EST Office Visit Cardiology, [facility] [address] [place] [address] Stephanie Tripp IV, MD [address] [place] [facility] [address] 11/26/2024 10:30 AM EDT Office Visit Cardiology, [facility] [address] [place] [address] Russ Morley PARickC [address] [place] [address] 11/26/2024 4:00 PM EDT Office Visit Family Practice [facility] [address] [place] [address] Eamon Felder, DO [address] [place] [address] 12/08/2024 1:30 PM EDT Office Visit Otolaryngology [facility] [address] [place] [address] Jg Farooq PA-C [address] [place] [address] Scheduled Procedures Name Priority Associated Diagnoses Date/Ti [...] Additional history exists CKD PHOS USE SMARTSET 18547 09/30/202409/09, 06/18/2022, 08/17/2021, Additional history exists Albumin/Creatinine Ratio 10/30/2024 024, 10/02/2023, 06/18/2022, Additional history exists Jha's Esophagus Surveilance 01/16/2025 01/16/2022, 07/24/2021, 07/24/2021, Additional history exists GFR 01/30/2025 08/02/2024, 0805/2024, 10/30/2023, Additional history exists CKD HGB USE SMARTSET 86040 04/26/202504/26, 07/22/2023, 07/22/2023, Additional history exists Depression [...] Care Agent (per Health Care Power of Bi Tri Operator document) Care Teams Clinical Pathologist Relationship Specialty Start Date End Date Eamon Felder DO [address] [place] [address] PCP - General Family Medicine 08/25/18 documented as of this encounter
--- OUTSIDE RECORDS SUMMARY | 2024-08-15 05:04 | External Medical Summary ---
Author Name Unknown Address Unknown Organization K01:[facility] [place] [address] [place] [address] Laboratory Report Ordering Provider Test Date Status LASHONDA LOPES 08/02/2024 14:23:12 Final Observation Date Value Abnormality Reference (Units ) Status LDL, (direct) 08/02/2024 14:23:12 90 <=129 (mg/dL) Final LDL Cholesterol Reference Ra nges (mg/dL):
<70 Target level for high risk ASCVD patient
<100 Optimal for general population
100-129 Near optimal for general population
130-159 Borderline high
160-189 High
>=190 Very high Performing Location LABORATORY [facility] - [address] [place] [address]
--- OUTSIDE RECORDS SUMMARY | 2024-08-15 05:04 | External Medical Summary | Summary of Care ---
Author Name Unknown Organization [facility] Address [address] [place] [address] Phone [phone] Care Team Providers Care Vp Cardiovascular Name Role Phone Eamon Felder DO Primary Care Provider Reason for Visit * Reason Onset Date Comments Appointment 08/02/2024 Encounter Details Date Type Department Care Team (Late st Contact Info) Description 08/02/2024 Telephone Cardiology, [facility] [address] [place] [address] Russ Morley PA-C [address] [place] [address] Appointment Allergies Active Allergy Reactions Criticality Noted [...] 50 MCG/ACT nasal spray Administer 1 [place] into nostril in the morning. Active CPAP every night at bedtime. Active B-12 1000 MCG Oral Tablet Take 1,000 mcg by mouth daily. Active Probiotic 250 MG Oral Capsule Take by mouth. Ac tive Meclizine HCl 25 MG Oral Tablet (Antivert)Indica tions:Vertigo Take 1 Tablet by mouth 3 times a day as needed for Dizziness. 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 Not [...] IMG SPECT MULT STUDIES WITH PHARM INTERV [41715.02] (Order [id number]) documented in this encounter Plan of Treatment Upcoming Encounters Date Type Department Care Team (Latest Contact Info) Description 2024 11:00 AM EST Telemedicine Psychiatry Kevin Mathews [address] [place] [phone] Pippa Ryan MD [address] [place] [address] 09/17/2024 2:10 PM EST Hospital Encounter OR [facility], Operating Room [facility] [address] [place] [phone] Fabián Caballero DO [address] [place] [address] 09/17/2024 2:10 PM EST - 09/17/2024 3:00 PM EST Surgery OR [facility], Operating Room [facility] [address] [place] [phone] Fabián Caballero DO [address] [place] [phone] DESTROY LUMBAR SACRAL NERVE IMAGING SINGLE 10/13/2024 1:00 PM EST Office Visit Cardiology, [facility] [address] [place] [address] Stephanie Tripp IV, MD [address] [facility] [address] 11/26/2024 10:30 AM EDT Office Visit Cardiology, [facility] [address] [place] [address] Russ Morley PA-C [address] [place] [address] 11/26/2024 4:00 PM EDT Office Visit Family Practice [facility] [address] [facility] [place] [address] Eamon Felder, DO 200 [facility] [place] [address] 12/08/2024 1:30 PM EDT Office Visit Otolaryngology [facility] [address] [place] [address] Jg Farooq PA-C [address] [place] [address] Scheduled Procedures Name Priority Associated Diagnoses Date/Ti [...] Additional history exists CKD PHOS USE SMARTSET 61984 09/30/202409/09, 06/18/2022, 08/17/2021, Additional history exists GFR 10/27/2024 04/26/2024, 10/10, 09/30/2023, Additional history exists Albumin/Creatinine Ratio 10/30/2024 024, 10/02/2023, 06/18/2022, Additional history exists Jha's Esophagus Surveilance 01/16/2025 01/16/2022, 07/24/2021, 07/24/2021, Additional history exists CKD HGB USE SMARTSET 69263 04/26/202504/26, 07/22/2023, 07/22/2023, Additional history exists Depression [...] Care Agent (per Health Care Power of General Assembler document) Care Teams Vp Cardiovascular Relationship Specialty Start Date End Date Eamon Felder DO [address] [place] [address] PCP - General Family Medicine 08/25/18 documented as of this encounter
--- OUTSIDE RECORDS SUMMARY | 2024-08-15 05:04 | External Medical Summary | Summary of Care ---
Author Name Unknown Organization [facility] Address [address] [place] [address] Phone [phone] Care Team Providers Care Junior Underwriter Name Role Phone Bradford Eamon Clark BUSTAMANTE Primary Care Provider Reason for Visit * Reason Onset Date Comments Other 07/23/2024 Encounter Details Date Type Department Care Team (Late st Contact Info) Description 07/23/2024 Telephone Psychiatry Kevin Mathews [address] [place] [address] Pippa Ryan MD [address] [place] [address] Other Allergies Active Allergy Reactions Criticality Noted Date Comments Dust 04/15/2011 Upper resp sx Other Allergy (See Comments) 10/23/2012 Perfume that contains kiah root causes nasal congestion documented as of this encounter (statuses as of 07/30/2024) Medications Vardenafil HCl (LEVITRA) 20 MG TabletIndications :Impotence of organic origin Take 1 Tab by mouth daily as needed for Erectile Dysfunction. 1 hour prior to intercourse, no more than 1 dose per day. 10 Tab 5 8 Active Clindamycin Phosphate 1 % SWABIndications:R osacea Apply to face daily as needed 60 Each 1 8 Active fluticasone (FLONASE) 50 MCG/ACT nasal spray Administer 1 [place] into nostril in the morning. Active CPAP every night at bedtime. Active B-12 1000 MCG Oral Tablet Take 1,000 mcg by mouth daily. Active Probiotic 250 MG Oral Capsule Take by mouth. Ac tive Meclizine HCl 25 MG Oral Tablet (Antivert)Indicat ions:Vertigo Take 1 Tablet by mouth 3 times a day as needed for Dizziness. 30 Tablet 1 4 Active Ipratropium [place] 0.06 % Nasal Solution (Atrovent)Indicat ions:Periodic breathing instill 2 sprays into each nostril three times a day if needed for allergies 15 mL 3 4 Active Vitamin D3 1.25 MG (62730 UT) Oral Tablet (Cholecalciferol) Take 1 Tablet by mouth once a week. 4 Tablet 3 4 Active Tamsulosin HCl 0.4 MG Oral Capsule (Flomax)Indicatio ns:BPH with obstruction/lower urinary tract symptoms Take 1 Capsule by [...] 4 Active Mckinley 2 % External Pad (Erythromycin)Ind ications:Rosacea APPLY TOPICALLY TO FACE DAILY FOR ROSACEA DIRECTED BY PRESCRIBER 60 Each 5 4 Active Metoprolol Succinate ER 25 MG Oral Tablet Extended Release 24 Hour (toPROL XL)Indications:Ch ronic atrial fibrillation (HCC) Take 0.5 Tablets by mouth in the morning and 0.5 Tablets before bedtime. 90 Tablet 3 4 Active Apixaban 2.5 MG Oral Tablet (Eliquis)Indicati ons:Chronic atrial fibrillation (HCC) Take 1 Tablet by mouth in the morning and 1 Tablet before bedtime. 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 He said he is having a hard time right now and he thinks he is going to take himself to the hospital. He is very depressed. Can you please give him a call. He said he will work through this and doesn't want to go to the hospital but thinks he may go. He isnt sure. documented in this encounter Plan of Treatment Upcoming Encounters Date Type Department Care Team (Latest Contact Info) Description 08/02/2024 1:30 PM EST Office Visit Cardiology, [facility] [address] [place] [address] Russ Morley PA-C [address] [place] [address] 2024 11:00 AM EST Telemedicine Psychiatry Kevin Mathews [address] [place] [address] Pippa Ryan MD [address] [place] [address] 09/17/2024 2:10 PM EST Hospital Encounter [facility], Operating Room [facility] [address] [place] [phone] Fabián Caballero DO [address] [place] [address] 09/17/2024 2:10 PM EST - 09/17/2024 3:00 PM EST Surgery OR [facility], Operating Room [facility] [address] [place] [phone] Fabián Caballero, DO [address] [place] [phone] DESTROY LUMBAR SACRAL NERVE IMAGING SINGLE 11/26/2024 4:00 PM EDT Office Visit Family Practice [facility] [address] [place] [address] Eamon Felder DO [address] [place] [address] 12/08/2024 1:30 PM EDT Office Visit Otolaryngology [facility] [address] [place] [address] Jg Farooq PA-C [address] [place] [address] Scheduled Procedures Name Priority Associated Diagnoses Date/Ti [...] Additional history exists CKD PHOS USE SMARTSET 56750 09/30/202409/09, 06/18/2022, 08/17/2021, Additional history exists GFR 10/27/2024 04/26/2024, 10/10, 09/30/2023, Additional history exists Albumin/Creatinine Ratio 10/30/2024 024, 10/02/2023, 06/18/2022, Additional history exists Jha's Esophagus Surveilance 01/16/2025 01/16/2022, 07/24/2021, 07/24/2021, Additional history exists CKD HGB USE SMARTSET 68173 04/26/202504/26, 07/22/2023, 07/22/2023, Additional history exists Depression [...] Care Agent (per Health Care Power of Solar Photovoltaic Systems Engineer document) Care Teams Junior Underwriter Relationship Specialty Start Date End Date Eamon Felder DO [address] [place] [address] PCP - General Family Medicine 08/25/18 documented as of this encounter
--- OUTSIDE RECORDS SUMMARY | 2024-08-15 05:04 | External Medical Summary | Summary of Care ---
Author Name Unknown Organization [facility] Address [address] [place] [address] Phone [phone] Care Team Providers Care Parker Name Role Phone BradfordEamon Clark BUSTAMANTE Primary Care Provider Encounter Details Date Type Department Care Team (Late st Contact Info) Description 07/23/2024 Documentation Psychiatry Kevin Mathews [address] [place] [address] Pippa Ryan MD [address] [place] [address] Allergies Active Allergy Reactions Criticality Noted Date Comments Dust 04/15/2011 Upper resp sx Other Allergy (See Comments) 10/23/2012 Perfume that contains kiah root causes nasal congestion documented as of this encounter (statuses as of 07/23/2024) Medications Vardenafil HCl (LEVITRA) 20 MG TabletIndication s:Impotence of organic origin Take 1 Tab by mouth daily as needed for Erectile Dysfunction. 1 hour prior to intercourse, no more than 1 dose per day. 10 Tab 5 04/24/20 18 Active Clindamycin Phosphate 1 % SWABIndications: Rosacea Apply to face daily as needed 60 Each 1 08/19/20 18 Active fluticasone (FLONASE) 50 MCG/ACT nasal spray Administer 1 [place] into nostril in the morning. Active CPAP every night at bedtime. Active B-12 1000 MCG Oral Tablet Take 1,000 mcg by mouth daily. Active Probiotic 250 MG Oral Capsule Take by mouth. Active Meclizine HCl 25 MG Oral Tablet (Antivert)Indica tions:Vertigo Take 1 Tablet by mouth 3 times a day as needed for Dizziness. 30 Tablet 1 10/30/19 24 Active Ipratropium [place] 0.06 % Nasal Solution (Atrovent)Indica tions:Periodic breathing instill 2 sprays into each nostril three times a day if needed for allergies 15 mL 3 11/10/19 24 Active Vitamin D3 1.25 MG (31522 UT) Oral Tablet (Cholecalciferol ) Take 1 Tablet by mouth once a week. 4 Tablet 3 11/12/19 24 Active Tamsulosin HCl 0.4 MG Oral Capsule (Flomax)Indicati ons:BPH with obstruction/lowe r urinary tract symptoms Take 1 Capsule by mouth at bedtime. 90 Capsule 3 11/22/19 24 Active Hyoscyamine Sulfate 0.125 MG Sublingual Tablet Sublingual (Levsin)Indicati ons:Irritable bowel syndrome One pill by mouth or under the tongue every 4 hours as needed for abdominal pain 40 Tablet 4 03/03/20 24 Active Torsemide 10 MG Oral Tablet (Demadex) Take 1/2 or 1 tablet one to two days per week only as needed 6 Tablet 3 04/12/20 24 Active Doxycycline Monohydrate 50 MG Oral Capsule Take 50 mg by mouth daily. 30 Capsule 11 04/26/20 24 Active Cholestyramine 4 GM Oral Packet (Questran) One packet daily in mid afternoon, mixed with liquid. 60 Packet 5 04/26/20 24 Active LORazepam 1 MG Oral Tablet (Ativan) Take 1/2 to 1 tablet by mouth up to 3 times a day as needed for anxiety (quantity to last 30 days) 60 Tablet 3 4 2:19 PM EDT 05/25/20 24 Active Pantoprazole Sodium 40 MG Oral Tablet Delayed Release (Protonix) TAKE 1 TABLET BY MOUTH TWICE A DAY 30 MINUTES BEFORE MORNING AND EVENING MEALS 180 Tablet 1 06/04/20 24 Active Mckinley 2 % External Pad (Erythromycin)In dications:Rosace a APPLY TOPICALLY TO FACE DAILY FOR ROSACEA DIRECTED BY PRESCRIBER 60 Each 5 06/29/20 24 Active Metoprolol Succinate ER 25 MG Oral Tablet Extended Release 24 Hour (toPROL XL)Indications:C hronic atrial fibrillation (HCC) Take 0.5 Tablets by mouth in the morning and 0.5 Tablets before bedtime. 90 Tablet 3 07/07/20 24 Active Apixaban 2.5 MG Oral Tablet (Eliquis)Indicat ions:Chronic atrial fibrillation (HCC) Take 1 Tablet by mouth in the morning and 1 Tablet before bedtime. 180 Tablet 3 07/16/20 24 Active buPROPion HCl ER (XL) 150 MG Oral Tablet Extended Release 24 Hour (Wellbutrin XL) Take 1 Tablet by mouth in the morning. 90 Tablet 1 07/23/20 24 Active buPROPion HCl ER (SR) 200 MG Oral Tablet Extended Release 12 Hour (Wellbutrin SR) Take 1 Tablet by mouth in the morning. 30 Tablet 6 4 2:19 PM EDT 06/25/20 24 024 Discontinued documented as of this encounter (statuses as of 07/23/2024) Active Problems Problem Noted Date Diagnosed Date [...] as of this encounter (statuses as of 07/23/2024) Resolved Problems Problem Noted Date Diagnosed Date [...] as of this encounter (statuses as of 07/23/2024) Immunizations Name Administration Dates Next Due COVID-19 mRNA, LNP-s, No Pre serve, 2-Dose Series ([employer]) 07/28/2021,07/02/2021,11/16/2020,05/2021 Pneumococcal Conjugate Vacc, 13 Valent (Prevnar) [...] Answer Date Recorded PHQ Adult Total Score 11 07/13/2024 Hunger Vital Sign Answer Date Recorded Within the past 12 months, y ou worried that your food would run out before you got the money to buy more. Never true 01/20/20 24 Within the past 12 months, t he food you bought just didn't last and you didn't have money to get more. Never true 01/20/2024 Childcare Answer Date Recorded Do you feel overwhelmed with taking care of a child, family member or friend? No 01/20/2024 Does your family need help f inding childcare? (Household - for ages 0-17 years) Not on file 01/20/2024 Clothing Answer Date Recorded Have you been unable to get clothing when it was really needed? No 01/20/2024 Is your family able to get c lothes or diapers when needed? (Household - for ages 0-17 years) Not on file 01/20/2024 Personal Safety Answer Date Recorded Do you feel unsafe or have concerns for your saf ety? No 01/20/2024 Do you have concerns for you r family's safety? (Household - for ages 0-17 years) Not on file 01/20/2024 Utilities Answer Date Recorded Do you have trouble paying y our heating, water, or electric bill? No 01/20/2024 Is your family able to pay t he heat, water, or electric bill? (Household - for ages 0-17 years) Not on file 01/20/2024 Does your family have access to good internet? (Household - for ages 0-17 years) Not on file 01/20/2024 Employment Status Answer Date Recorded Are you unemployed or without regular income? No 01/20/2024 Does the household have a re gular source of income? (Household - for ages 0-17 years) Not on file 01/20/2024 Social Connections Answer Date Recorded How often do you feel lonely or isolated from th ose around you? Never 01/20/2024 Financial Resource Strain Answer Date R ecorded Do you have any trouble payi ng for your medications, or do you think you might in the future? No 01/20/2024 Does your family have troubl e paying for medicine? (Household - for ages 0-17 years) Not on file 01/20/2024 Transportation Needs Answer Date Record ed READ ONLY Do you have troubl e getting a ride to medical visits or work? Never True 01/20/2024 Does your family have a hard time getting a ride to doctors visits? (Household - for ages 0-17 years) Not on file 01/20/2024 Has lack of transportation k ept you from medical appointments, meetings, work, or from getting things needed for daily living? Check all that apply. (Adult - for ages 18 years and over) Not on file 01/20/2024 Do you (or your family) have trouble finding or paying for a ride (transportation)? (Household - for ages 0-17 years) Not on file 01/20/2024 Housing Stability Answer Date Recorded Do you currently live in a s helter or have no steady place to sleep at night? No 01/20/2024 READ ONLY Do you think you a re at risk of becoming homeless? No 01/20/2024 Does your family worry about paying for your home or becoming homeless? (Household - for ages 0-17 years) Not on file 0 01/20/2024 Are you homeless or worried that you might be in the future? (Adult - for ages 18 years and over) Not on file Are you (or your family) beth eless or worried that you might be in the future? (Household - for ages 0-17 years) Not on file Food Insecurity Answer Date Recorded Do you need food for this week? No 01/20/2024 Are you able to get enough f ood for your family? (Household - for ages 0-17 years) Not on file 01/20/2024 Does your family need food t his week? (Household - for ages 0-17 years) Not on file 01/20/2024 Do you always have enough fo od for your family? (Household - for ages 0-17 years) Not on file 01/20/2024 Sex and Gender Information Value Date Recorded Sex Assigned at Not on file Legal Sex Male 5:43 AM EST Gender Identity Male 08/19/2023 4:38 PM EST Sexual Orientation Not on file Occupation Industry Job Start Date Job End Date [employer] Not on f ile Not on file Not on file documented as of this encounter Progress Notes * Pippa Ryan MD - 07/23/2024 1:32 PM EST Called and spoke to patient in response to his phonecall and message. He reports feeling very depressed lately, due to relationship problems. Is planning to have his brother come spend the weekend, brother is an important positive support for him. Some SI without active intent or plan, chronic. Would go to ER if feelings intensified; has done soin past as needed. Feels safe at home for now. We discussed medication change but he wants to continue bupropion for now, as has had so many side effects from medications. Having some lightheadedness, wonders if is from medications vs cardiac issues--having cardiac workup. He will continue to keep me posted. documented in this encounter Plan of Treatment Upcoming Encounters Date Type Department Care Team (Latest Contact Info) Description 08/02/2024 1:30 PM EST Office Visit Cardiology, [facility] [address] [place] [address] Russ Morley PA-C [address] [place] [address] 2024 11:00 AM EST Telemedicine Psychiatry Kevin Mathews [address] [place] [phone] Pippa Ryan MD [address] [place] [address] 09/17/2024 2:10 PM EST Hospital Encounter [facility], Operating Room [facility] [address] [place] [phone] Fabáin Caballero, DO [address] [place] [phone] 09/17/2024 2:10 PM EST - 09/17/2024 3:00 PM EST Surgery OR [facility], Operating Room [facility] [address] [place] [phone] Fabián Caballero, DO [address] [place] [phone] DESTROY LUMBAR SACRAL NERVE IMAGING SINGLE 11/26/2024 4:00 PM EDT Office Visit Family Practice [facility] [address] [facility] [place] [address] Eamon Felder, DO [address] [place] [address] 12/08/2024 1:30 PM EDT Office Visit Otolaryngology [facility] [address] [place] [address] Jg Farooq PA-C [address] [place] [address] Scheduled Procedures Name Priority Associated Diagnoses Date/Ti [...] Additional history exists CKD PHOS USE SMARTSET 92839 09/30/202409/09, 06/18/2022, 08/17/2021, Additional history exists GFR 10/27/2024 04/26/2024, 10/10, 09/30/2023, Additional history exists Albumin/Creatinine Ratio 10/30/2024 024, 10/02/2023, 06/18/2022, Additional history exists Jha's Esophagus Surveilance 01/16/2025 01/16/2022, 07/24/2021, 07/24/2021, Additional history exists CKD HGB USE SMARTSET 96370 04/26/202504/26, 07/22/2023, 07/22/2023, Additional history exists Depression Monitoring 07/13/2025 07/13/2024 DTap/Tdap Vaccines (3 - Td or Tdap) [...] Care Agent (per Health Care Power of Canine Service Teacher document) Care Teams Parker Relationship Specialty Start Date End Date Eamon Felder DO [address] [place] [address] PCP - General Family Medicine 08/25/18 documented as of this encounter
--- OUTSIDE RECORDS SUMMARY | 2024-08-15 05:04 | External Medical Summary ---
Author Name Unknown Address Unknown Organization K01:[facility] - [address] [place] [address] Laboratory Report Ordering Provider Test Date Status TEJAL LOPESO 08/02/2024 14:23:12 Final Observation Date Value Abnormality Reference (Units ) Status Magnesium 08/02/2024 14:23:12 1.9 1.5-2.6 (m g/dL) Final Performing Location [facility] - [address] [place] [address]
--- OUTSIDE RECORDS SUMMARY | 2024-08-15 05:04 | External Medical Summary ---
Author Name Unknown Address Unknown Organization K01:[facility] - [address] [facility] [address] Laboratory Report Ordering Provider Test Date Status LASHONDA LOPES 08/02/2024 14:23:12 Final Observation Date Value Abnormality Reference (Units ) Status TSH 08/02/2024 14:23:12 3.58 0.27-4.20 (uIU/mL) Final Performing Location [facility] - [address] [facility] [address]
--- OUTSIDE RECORDS SUMMARY | 2024-08-15 05:04 | External Medical Summary ---
Author Name Unknown Address Unknown Organization K0G:[facility] - [address] [place] [address] Laboratory Report Ordering Provider Test Date Status LASHONDA LOPES 08/02/2024 14:23:12 Final Observation Date Value Abnormality Reference (Units ) Status BUN 08/02/2024 14:23:12 24 Above high normal 6-20 (mg/dL) Final Creatinine 08/02/2024 14:23:12 1.6 Above high normal 0.6-1.2 (mg/dL) Final Glomerular filtration rate/1.73 sq M.predicted [Volume Rate/Area] in Serum, Plasma or Blood by Creatinine-based formula (CKD-EPI) 08/02/2024 14:23:12 43 Below low normal >=60 (mL/min) Final eGFR is calculated based on the CKD-EPI 2020 equation. Sodium 08/02/2024 14:23:12 142 135-146 (m mol/L) Final Potassium 08/02/2024 14:23:12 3.5 3.5-5.1 (m mol/L) Final Cl 08/02/2024 14:23:12 102 98-107 (mm ol/L) Final CO2 08/02/2024 14:23:12 29 22-32 (mmo l/L) Final Anion gap 08/02/2024 14:23:12 11 7-15 (mmol /L) Final Glucose 08/02/2024 14:23:12 92 70-120 (mg /dL) Final Albumin 08/02/2024 14:23:12 3.8 3.8-5.0 (g /dL) Final AST (Aspartate aminotransferase) 08/02/2024 14:23:12 19 10-50 (U/L) Fin al Alk Phos 08/02/2024 14:23:12 148 Above high normal 35 -130 (U/L) Final Bilirubin, Total 08/02/2024 14:23:12 1.3 Above high no rmal <=1.2 (mg/dL) Final Calcium 08/02/2024 14:23:12 9.4 8.4-10.2 ( mg/dL) Final Protein 08/02/2024 14:23:12 6.5 6.0-8.3 (g /dL) Final ALT (Alanine aminotransferase) 08/02/2024 14:23:12 11 10-50 (U/L) Prateek sharpe Performing Location [facility] [address] [place] [address]
== END 2024-08-14 14:29 | disposition home or self-care (01) | DRG 292 ==
LOC: ED 17:16 → 2E 20:16

== ENCOUNTER 2025-07-12 13:48 | Inpatient (IN) ==
--- NOTE | 2025-07-12 14:14 | Emergency Department Note ---
Impression & Plan Fall, Ataxia, Vertigo, Contusion, Ambulatory dysfunction, CKD (chronic kidney disease) ED Provider Note NAME: PAVEL SEGURA AGE: 84 SEX: M : 1940 ARRIVES VIA: Walk-In INFORMANT: Patient, ED PROVIDER(S): Jose Ramon Parks DO CHIEF COMPLAINT: fall HPI: This was not prehospital trauma/injury alert by EMS. This is a 84-year-old male with the PMHx of vertigo, IBS, hypertension, hyperlipidemia, BPH, lumbar degenerative disc disease, CHF, chronic atrial fibrillation s/p PPM, and CKD presenting to [facility] for further evaluation of fall. Patient is accompanied by his who provide additional history. Patient states he fell on Friday. Patient reports that he was trying to put a lidocaine patch on his back when he fell backwards and struck his head. He did not lose consciousness. Reports chronic anticoagulation with apixaban. Patient states since this time he has had lightheadedness and dizziness as well as a posterior right headache. Patient denies any significant back pain but has been struggling with sciatica. He states this is a chronic issue for him. Does report some neck stiffness and pain. Patient states he recently had a pacemaker placed. He reports no pain at the pacemaker site. He reports the ecchymoses are secondary to pacemaker insertion. Patient denies any pain in his extremities. He has been able to ambulate but notes difficulties with this secondary to his symptoms. They deny fever or chills. No cough or congestion. Denies chest pain or palpitations. No shortness of breath. They deny abdominal pain, nausea and vomiting. No urinary complaints. No recent changes in bowel movements. Patient denies recent changes in medications or OTC supplements. Patient offers no other complaints, today. ADDITIONAL HISTORY OBTAINED: Per HPI Chronic Medical/Social Conditions Affecting Care: Per HPI PAST MEDICAL HISTORY: See Below PAST SURGICAL HISTORY: See Below FAMILY HISTORY: See Below SOCIAL HISTORY: See Below HOME MEDICATIONS: See Below ALLERGIES: See Below VITALS: See Below PHYSICAL EXAMINATION: Primary Survey Airway: Intact Breathing: Normal, breath sounds equal bilaterally Circulation: Skin warm, distal pulses 2+, capillary refill less than 2 seconds Disability Pupils: Equal and reactive to light, 4mm, brisk GCS: 15, E = 4, V=5, M= 6 Motor Function: Moves all extremities. Sensory: No deficits Secondary Survey GEN: Well developed and well-nourished HENT: Head: No external signs of trauma. No obvious contusions, abrasions, or laceration. No raccoon eyes or steel sign. Mouth/Throat: No blood within the oral cavity. No malocclusion. Eyes: EOMI. Pupils are 4 mm, round and reactive bilaterally. Ears: TMs are intact bilaterally. No hematomas. No hemotympanum. Nose: No nasal septal hematoma. No gross deformity. Neck: C-collar in place. No midline C-spine tenderness. No step-offs. Cardiovascular: RRR. Pulses present in all 4 extremities. Pulmonary/Chest: BS equal bilaterally. No tenderness. Healing incision from pacemaker. No tenderness to palpation over the pacemaker pocket, swelling or erythema. Patient does have ecchymoses over the anterior lateral left chest wall. This has been present since his pacemaker placement. Abdomen: No tenderness or ecchymosis. Musculoskeletal: Pelvis: No instability. Back: No midline tenderness. No step-offs or deformities. Extremities: No gross deformities. No TTP. Skin: No laceration. No abrasion. Neuro: No focal neurological deficits. GCS as above. Psych: Normal mood and affect. MEDICAL DECISION MAKING: Vitals: The patient is afebrile and HDS. An order was placed for continuous cardiorespiratory monitoring. I reviewed and this shows a rate of 70s with regular rhythm. EKG: EKG independently interpreted by me reveals ventricular paced rhythm at [address] segment changes to suggest STEMI. Intervals are within normal limits. Differential diagnoses include but not limited to multi-system trauma, ICH, skull fracture, spine / spinal cord injury, fracture, dislocation, traumatic abdominal injuries, solid / visceral organ injuries, MSK sprain / strain, contusion, whiplash, concussion In summary, this is a 84yoM who presented as an injury alert. Patient was brought into the emergency/resuscitation room by Nursing staff. Full ATLS protocol was initiated under direction of the ED team. The history was concerning for multi-system trauma. Airway intact and self maintained, breath sounds bilateral and equal along with normal effort, circulation intact with pp in 4 extremities, GCS 15 with normal speech and sensorium and PEREZ. Full physical examination as above. History and secondary survey as above. Labs drawn. eFAST deferred for WBCT as the patient has no abdominal/chest complaints, evidence of trauma in these areas or hemodynamic instability. Collar placed. Pt was not given tetanus. Initial/stabilizing treatments include close observation. He has no significant pain that required medications at this time. Imaging performed and reviewed as above. I-STAT chemistries independently turbid by me show some kidney dysfunction. Reviewed prior lab work. This appears to be the baseline for the patient. GFR in the 40s. Will provide gentle IV hydration prior to CT scan. Will proceed with contrast studies. Patient was taken to the CT suite for WBCT. Chest x-ray was independently interpreted by me as negative for pneumothorax. There is cardiomegaly and interstitial edema likely from fluid overload state. Pacemaker wires in place. Labs were independently interpreted by me as no leukocytosis or anemia. There is no significant electrolyte derangements or significant kidney dysfunction from baseline. No changes in LFTs besides mild tBili and alk phos elevation. CTH independently interpreted by me reveals no evidence of ICH. No significant hydrocephalus. No major skull fractures. CTH does not demonstrate findings to suggest an etiology of the patient's symptoms or presentation, today. CT C spine was independently interpreted by me as negative for acute fracture or dislocation. The patient's cervical collar was removed today. The patient's imaging was reviewed and the CT C-Spine was negative for acute injury. The patient was alert and oriented prior to his exam. On exam, he was non-tender to palpation midline and had full ROM without any neurologic deficits. The patient tolerated this procedure well. Collar removed at 1520. The patient's complex injuries include MSK strain and contusion. Based on the patient's age, code existing illnesses, exam and lab findings, the decision to treat as an inpatient was made. The patient's trauma workup is unremarkable. He likely has a trace pericardial effusion from his recent pacemaker placement. I attempted to stand the patient and ambulate and he is very unsteady. Significant ataxia present. Etiologies include peripheral versus central vertigo. Given ongoing symptoms, I do feel it is reasonable bring this patient in for repeat TTE as well as an MRI. Will plan to discussed with the hospitalist team as he is unsafe for discharge at this time. They received the medications, treatments, interventions indicated above and their condition remained. I discussed my findings with the patient and their family and they understand and agree with the treatment plan. All patient / family questions were answered to their satisfaction. [facility]. Consults/Care Managements Discussions: Per MDM ER treatment provided: See above Procedures: None Critical Care: None The chart was completed utilizing [employer] Speech voice recognition software. Grammatical errors, random word insertions, pronoun errors, and incomplete sentences are an occasional consequence of this system due to software limitations, ambient noise, and hardware issues. Any formal questions or concerns about the content, text, or information contained within the body of this dictation should be directly addressed to the physician for clarification. Past Med/Surg History Problem List (Updated 07/13/25 @ 01:24 by Jose Ramon Parks DO) CKD (chronic kidney disease) (Acute) Ambulatory dysfunction (Acute) Contusion (Acute) Vertigo (Acute) Ataxia (Acute) Fall (Acute) Ataxia Foraminal stenosis of lumbar region Scoliosis of lumbar region due to degenerative disease of spine in adult CKD stage 3a, GFR 45-59 ml/min Atrial fibrillation Acute on chronic combined systolic and diastolic CHF (congestive heart failure) Hypomagnesemia (Acute) Acute hypokalemia (Acute) Bilateral lower extremity edema (Acute) Fluid retention (Acute) Acute exacerbation of chronic heart failure (Acute) Acute on chronic systolic (congestive) heart failure Left patella fracture Hemorrhagic prepatellar bursitis of left knee Incomplete emptying of bladder Hematuria MARIA C (generalized anxiety disorder) Major depressive disorder Elevated troponin Internal carotid artery thrombosis Suicidal ideations Chronic atrial fibrillation Lightheadedness (Acute) Depression with anxiety MYRON (obstructive sleep apnea) HFrEF (heart failure with reduced ejection fraction) senior living (current) use of anticoagulants (Acute) Gastroesophageal reflux disease concurrent with and due to paraesophageal hernia Chronic pharyngitis Depression S/P TKR (total knee replacement) LBBB (left bundle branch block) Hypertension Depression with suicidal ideation (Acute) Lumbar spondylosis Lumbar stenosis Stage III chronic kidney disease Allergic fungal sinusitis (AFS) Chronic nonallergic rhinitis BPH NOS w ur obs/LUTS Renal cyst, acquired, right Sensorineural hearing loss (SNHL) of both ears Pancreatitis Readmitted to [facility] May 17, 2020 to May 19, 2020 with acute pancreatitis. Furosemide decreased to 20 mg/day on discharge. 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 Hypertension Hyperlipidemia Hearing deficit BILATERAL AIDES Vertigo IBS (irritable bowel syndrome) Medical History (Updated 07/13/25 @ 01:24 by Jose Ramon Parks DO) Anxiety Chronic systolic (congestive) heart failure Dementia without behavioral disturbance Stage 3b chronic kidney disease Hypersomnolence disorder Essential tremor Dyslipidemia MYRON on CPAP Hx of colonic polyp Vitamin D deficiency Pernicious anemia Lumbar spondylosis with myelopathy Rosacea On anticoagulant therapy Anxiety and depression Hx of gout LBBB (left bundle branch block) CHRONIC Asthma STABLE Osteoarthritis Sciatica BPH (benign prostatic hyperplasia) Diverticular disease DIVERTICULITIS S/P PERFORATION/COLON RESECTION (2005) GERD (gastroesophageal reflux disease) Surgical History History of cataract surgery RT History of arthroplasty of right knee History of colonoscopy 2019 History of esophagogastroduodenoscopy (EGD) 2019 History of appendectomy History of colostomy reversal History of bowel resection DIVERTICULITIS S/P PERFORATION/COLON RESECTION (2005) History of endoscopic sinus surgery Right side-Dr. Yuan History of tonsillectomy Family History Mother Family hx of colon cancer Family history of diabetes mellitus Social History Smoking Status: Former smoker Tobacco Type: Cigarettes packs per day: 0.5; Second Hand Exposure: No; Do You Dip or Chew Tobacco: No; Hx Alcohol Use: Yes Alcohol type: beer and wine Hx Substance Use: No Preferred Language: Upper Sorbian Communication Ability: Effective Visual Impairment: Limited Hearing Ability: Use of Hearing Aid Medication Administration Professional Required: No Beliefs That Will Affect Care: None marital status: unknown marital status details: Engaged Current Living Situation: Other Current Living Situation Comment: with friend How many Children do You have: 2 Other Information That Helps Us Care for You: No other: Brother Matthieu is medical power of civil litigation attorney, Feels Safe at Home: Yes Safety Concerns: Feels Safe At This Time Childhood Exposure to Second-Hand Smoke: No Diet: ideal protein and low salt Diet Comment: Low fat Gender Identity: Male Assistive Devices: Cane, CPAP, Denture - Lower, Glasses and Hearing Aid - Bilateral Allergies Allergies Allergy/AdvReac Type Severity Reaction Status Date / Time house dust Allergy Intermediate Congested Verified 07/12/25 16:51 Home Meds Home Medications Medication Instructions Recorded Confirmed apixaban 2.5 mg tablet (Eliquis) 2.5 mg PO AMHS 05/17/20 07/12/25 tamsulosin 0.4 mg capsule 0.4 mg PO HS 11/05/22 07/12/25 cyanocobalamin (vitamin B-12) 1,000 mcg sublingual QAM 04/07/23 07/12/25 1,000 mcg sublingual tablet fluticasone propionate 50 1 spray intranasal QAM 04/07/23 07/12/25 mcg/actuation nasal spray,suspension ipratropium bromide 42 mcg (0.06 2 spray intranasal TID PRN 04/07/23 07/12/25 %) nasal spray allergies erythromycin with ethanol 2 % 1 applic topical DAILY 11/14/23 07/12/25 topical swab (Mckinley Pads) lorazepam 1 mg tablet 0.5 - 1 mg PO BID PRN Anxiety 11/14/23 07/12/25 meclizine 25 mg tablet 25 mg PO TID PRN Vertigo 11/14/23 07/12/25 pantoprazole 40 mg tablet,delayed 40 mg PO BIDM 11/14/23 07/12/25 release clindamycin phosphate 1 % topical 1 applic topical DAILY PRN FACE 08/12/24 07/12/25 swab doxycycline monohydrate 50 mg 50 mg PO DAILY 08/12/24 07/12/25 capsule ergocalciferol (vitamin D2) 1,250 50,000 unit PO WK 08/12/24 07/12/25 mcg (50,000 unit) capsule hyoscyamine sulfate 0.125 mg 0.125 mg PO Q4 PRN Abdominal Pain 08/12/24 07/12/25 sublingual tablet metoprolol succinate 25 mg 12.5 mg PO QAM 08/12/24 07/12/25 tablet,extended release 24 hr spironolactone 25 mg tablet 25 mg PO 3XWK 08/12/24 07/12/25 Saccharomyces boulardii 250 mg 250 mg PO DAILY 07/12/25 07/12/25 capsule (Florastor) bupropion HCl 100 mg tablet,12 hr 100 mg PO QAM 07/12/25 07/12/25 sustained-release dutasteride 0.5 mg capsule 0.5 mg PO HS 07/12/25 07/12/25 loperamide 2 mg tablet 2 mg PO QID PRN Diarrhea 07/12/25 07/12/25 torsemide 5 mg tablet 5 mg PO QAM 07/12/25 07/12/25 Results & Data (ED) Vital Signs Vital Signs - 24 hr 07/12/25 13:58 07/12/25 14:29 07/12/25 14:29 Temperature 36.4 C L Temperature Source Temporal Artery Scan Pulse Rate 71 Pulse Rate [Apical] 73 Respiratory Rate 18 14 Respiratory Effort / Characteristics Non-Labored Spontaneous Respiratory Depth Normal Respiratory Pattern Regular Blood Pressure 129/82 Blood Pressure [Right Arm] 131/80 Blood Pressure Mean 97 Blood Pressure Mean [Right Arm] 97 Pulse Oximetry 98 97 Oxygen Delivery Method Room Air Room Air Room Air Sepsis Recent Fever Within 48 Hours No Sepsis New/Unexplained Change in Mental Status N/A Sepsis Action Taken by Nursing No Action Required 07/12/25 14:56 07/12/25 15:05 07/12/25 15:22 Temperature Temperature Source Pulse Rate 70 Pulse Rate [Apical] 75 74 Respiratory Rate 18 Respiratory Effort / Characteristics Non-Labored Non-Labored Spontaneous Respiratory Depth Normal Normal Respiratory Pattern Regular Regular Blood Pressure Blood Pressure [Right Arm] 135/64 141/88 H Blood Pressure Mean Blood Pressure Mean [Right Arm] 87 105 Pulse Oximetry 96 100 Oxygen Delivery Method Room Air Room Air Sepsis Recent Fever Within 48 Hours Sepsis New/Unexplained Change in Mental Status Sepsis Action Taken by Nursing Laboratory Data 07/12/25 14:25 07/12/25 14:25 Lab Results 07/12/25 07/12/25 Range/Units 14:25 14:29 WBC 5.64 (4.8-10.8) K/ul RBC 4.73 (4.70-6.10) M/uL Hgb 14.6 (14.0-18.0) g/dl POC Hgb 15.6 (14.0-18.0) g/dl Hct 43.9 (42.0-52.0) % POC Hct 46 (42-52) % MCV 92.8 (80.0-100.0) fL MCH 30.9 (25.0-34.0) pg MCHC 33.3 (32.0-36.0) g/dL RDW Std Deviation 51.3 H (36.4-46.3) fL RDW Coeff of Henry 15.0 H (11.5-14.5) % Plt Count 145 (130-400) K/uL MPV 9.9 (9.4-12.4) fL Immature Gran % (Auto) 0.4 % Neut % (Auto) 63.9 % Lymph % (Auto) 22.0 % Caswell % (Auto) 9.8 % Eos % (Auto) 3.2 % Baso % (Auto) 0.7 % Neut # (Auto) 3.61 (1.40-6.50) K/uL Lymph # (Auto) 1.24 (1.20-3.40) K/uL Caswell # (Auto) 0.55 (0.11-0.59) K/uL Eos # (Auto) 0.18 (0.00-0.50) K/uL Baso # (Auto) 0.04 (0.00-0.20) K/uL Immature Gran # (Auto) 0.02 (0.01-0.20) K/uL PT 12.5 H (9.0-12.0) Seconds INR 1.2 H (0.9-1.1) APTT 29 (21-31) Seconds PTT Ratio 1.1 POC Sodium 143 (135-144) mmol/L Sodium 141 (136-145) mmol/L POC Potassium 3.7 (3.3-5.0) mmol/L Potassium 3.7 (3.5-5.1) mmol/L POC Chloride 103 (101-112) mmol/L Chloride 106 (98-107) mmol/L Carbon Dioxide 28 (21-32) mmol/L POC Total CO2 26 (24-31) mmol/L Anion Gap 7 (3-11) POC Anion Gap 19.0 (16-25) mmol/L POC BUN 25 H (7-18) mg/dl BUN 24 H (6-23) mg/dl Creatinine 1.66 H (0.6-1.4) mg/dl POC Creatinine 1.8 H (0.6-1.3) mg/dl Est Cr Clr Drug Dosing 42.1 ml/min eGFR 40.90 BUN/Creatinine Ratio 14.5 (10-20) Glucose 89 (70-99(Fasting)) mg/dl POC Glucose (other) 89 (70-99) mg/dl Calcium 9.3 (8.6-10.3) mg/dl POC Ioniz Calcium Tyesha 1.15 (1.12-1.32) mmol/l Total Bilirubin 1.4 H (0.2-1.0) mg/dl AST 20 (13-39) U/L ALT 13 (7-52) U/L Alkaline Phosphatase 160 H (34-104) U/L Total Protein 7.1 (6.0-8.3) gm/dl Albumin 3.9 (3.4-5.0) gm/dl Globulin 3.2 (2.5-4.0) gm/dl Albumin/Globulin Ratio 1.2 (0.9-2) Lipase 20 (11-82) U/L Administered Medications Apixaban (Apixaban 2.5 Mg Tab) 2.5 mg PO BID ALEKSANDRA Stop: 08/11/25 23:05 Last Admin: 07/13/25 00:01 Dose: 2.5 mg Documented By: aspen Meclizine HCl (Meclizine Hcl 25 Mg Tab) 25 mg PO TID ALEKSANDRA Stop: 08/11/25 23:05 Last Admin: 07/13/25 00:05 Dose: Not Given Documented By: aspen Metoprolol Succinate (Metoprolol Succ 25mg Ext Rel Tab) 12.5 mg PO BID ALEKSANDRA Stop: 08/11/25 23:05 Last Admin: 07/13/25 00:02 Dose: 12.5 mg Documented By: aspen Pantoprazole Sodium (Pantoprazole 40 Mg Tab) 40 mg PO BIDM ALEKSANDRA Stop: 08/11/25 23:05 Last Admin: 07/13/25 00:01 Dose: 40 mg Documented By: aspen Tamsulosin HCl (Tamsulosin Hcl 0.4 Mg Cap) 0.4 mg PO HS ALEKSANDRA Stop: 08/11/25 23:05 Last Admin: 07/13/25 00:02 Dose: 0.4 mg Documented By: aspen Discontinued Medications Sodium Chloride (Nss) 500 mls @ 999 mls/hr IV .Q31M ONE Stop: 07/12/25 15:01 Last Infusion: 07/12/25 15:38 Dose: Infused Documented By: Admin: 07/12/25 14:36 Dose: 999 mls/hr Documented By: MELY Ioversol (Optiray 320 100ml) 90 ml IV ONCE ONE Stop: 07/12/25 14:43 Last Admin: 07/12/25 14:43 Dose: 90 ml Documented By: JENNYFER Imaging Data Radiologist's Impression: Abdomen/Pelvis CT 07/12/25 14:09 CT SCAN OF THE ABDOMEN AND PELVIS WITH IV CONTRAST CLINICAL HISTORY: Trauma. COMPARISON STUDY: Prior abdominal CT scans, most recently dated 07/16/2024. TECHNIQUE: Following the IV administration of 90 cc of Optiray 320, CT scan of the abdomen and pelvis is performed from the lung bases to the proximal femora. Images are reviewed in the axial, sagittal, and coronal planes. IV contrast was administered without complication. A dose lowering technique was utilized adhering to the principles of ALARA. CT DOSE: 4106.75 mGy.cm FINDINGS: Lung bases: The heart is enlarged noting a small pericardial effusion. The coronary arteries are densely calcified. A pacemaker lead is in place. There is bibasilar scarring/atelectasis. No airspace consolidation typical for pneumonia or pleural effusion is identified. There is no basilar pneumothorax. Liver: The contrast-enhanced liver is normal in size and heterogeneous in attenuation. There is no intrahepatic biliary ductal dilatation. The hepatic veins and portal veins are patent. A 2.8 cm left lobe hepatic cyst is unchanged. Gallbladder: Unremarkable. Spleen: Normal in size and attenuation. Pancreas: Unremarkable. Adrenal glands: Unremarkable. Kidneys: The contrast enhanced kidneys demonstrate marked cortical atrophy and are without hydronephrosis. The kidneys enhance symmetrically. There is a 4.5 cm right renal cyst. Additional subcentimeter cortical hypodensities also likely represent cysts but are too small for definitive characterization. Abdominal vasculature: The abdominal aorta is normal in course and caliber noting mild to moderate atherosclerotic calcification. Bowel: There is postoperative change from sigmoid colon resection with colocolonic anastomosis. No bowel obstruction is seen. There is mild diverticulosis of the remaining colon without CT evidence of acute diverticulitis. There is also diverticulosis of the distal ileum. Moderate amount of fecal retention is seen throughout the colon. The appendix is not visualized. Peritoneum: There is no intraperitoneal free air or abdominal ascites. There is a fat and bowel containing umbilical hernia. A hernia in the left ventral pelvis contains a tiny segment of colon. Lymphadenopathy: Again seen are numerous mildly enlarged retroperitoneal lymph nodes. A left para-aortic node on image #167 measures 2.0 x 1.2 cm. Pelvic viscera: The prostate gland is enlarged and heterogeneous. The bladder wall appears thickened/trabeculated indicating chronic outlet obstruction. There are bilateral fat-containing groin hernias. Skeletal structures: The skeletal structures are osteopenic. There is moderate lumbosacral spondylosis and scoliosis. The Lumbosacral spine, bony pelvis, and proximal femora appear intact. No lytic or blastic lesions are seen. IMPRESSION: 1. There is no evidence of solid organ injury in the abdomen or pelvis. 2. Cardiomegaly and cardiac pacemaker. 3. There is diverticulosis of the small bowel and colon without CT evidence of acute diverticulitis. 4. Numerous mildly enlarged retroperitoneal lymph nodes are similar to prior studies dating back to 2019. These are pathologically indeterminant but of low suspicion given the long-term stability. Clinical correlation will be required. 5. Additional findings as detailed above. ACT 112: Negative or not required by law. Electronically signed by: Tommy Kern M.D. 07/12/2025 3:[address] 07/12/25 14:09 CT SCAN OF THE CERVICAL SPINE CLINICAL HISTORY: Trauma. COMPARISON STUDY: CT angiogram of the neck dated 07/30/2023. TECHNIQUE: CT scan of the cervical spine is performed from the skull base to the upper thoracic spine. Images are reviewed in the axial, sagittal, and coronal planes. IV contrast was not administered for this examination. A dose lowering technique was utilized adhering to the principles of ALARA. FINDINGS: Skeletal structures: The skeletal structures are osteopenic. There is no evidence of fracture or subluxation involving the cervical spine. Vertebral body height and alignment are maintained. Anterior osteophytes are seen throughout. The odontoid process and lateral masses are intact noting productive degenerative changes. The atlantoaxial articulation is preserved. The spinous processes appear intact. Mild facet arthropathy is seen in the lower cervical region. Intervertebral discs: There is moderate disc space narrowing at C3-C4 and C5-C6 with mild endplate sclerosis. Central canal: Posterior disc osteophyte complexes at C3-C4 and C5-C6 likely contribute to acquired compromise of the central canal. Soft tissues: The prevertebral and paraspinous soft tissues are within normal limits. A pacemaker lead is seen at the left thoracic inlet. There is a 2.2 cm right lobe thyroid nodule. There is atherosclerotic calcification of the carotid bulbs. A 3.5 cm lipoma is seen within the soft tissues of the right anterior neck. Calvarium: The visualized calvarium at the skull base appears intact. Brain parenchyma: Partially visualized brain parenchyma at the skull base is within normal limits. Sinuses and mastoids: There is evidence of previous paranasal sinus surgery. Mucosal thickening is noted in the maxillary antra, right side greater than left. The mastoid air cells are well pneumatized. Cerumen is noted in the external auditory canals. Lung apices: Clear as visualized. IMPRESSION: 1. There is no evidence of fracture or subluxation involving the cervical spine. 2. Osteopenia and spondylotic change as above. 3. There is a 2.2 cm right lobe thyroid nodule. A nonemergent thyroid ultrasound is recommended in follow-up. ACT 112: Negative or not required by law. Electronically signed by: Tommy Kern M.D. 07/12/2025 3:[address] 07/12/25 14:[address] WITH CONTRAST HISTORY: Acute chest trauma. 0Trauma TECHNIQUE: Multiaxial CT images of the chest were performed following the IV administration of 90 cc of Optiray. A dose lowering technique was utilized adhering to the principles of ALARA. COMPARISON: CT abdomen and pelvis of same day FINDINGS: Heterogeneity of the thyroid. There is a single lead left subclavian pacer. Mild cardiomegaly with extensive coronary artery calcifications. No thoracic aortic aneurysm. The opacified pulmonary artery is unremarkable. Trace pericardial effusion. No pathologically enlarged lymph nodes. Trace left pleural effusion with mild bibasilar groundglass opacities. Central airways are patent. CT abdomen and pelvis dictated separately. Left hepatic lobe cyst. Moderate nodularity of the liver suggestive of cirrhosis. Unremarkable soft tissues. Gynecomastia. No acute fracture identified. IMPRESSION: 1. No acute posttraumatic intrathoracic abnormality identified. 2. Trace pericardial and left pleural effusions. 3. Bibasilar groundglass densities favor atelectasis. An infectious or inflammatory process considered less likely. 4. CT abdomen and pelvis dictated separately. ACT 112: Negative or not required by law. Electronically signed by: Benjamin Burgess M.D. 07/12/2025 3:16 PM Chest X-Ray 07/12/25 14:09 XR chest 1V portable CLINICAL HISTORY: Trauma COMPARISON STUDY: 06/29/2025 FINDINGS: Stable pacemaker. Stable cardiomegaly without pulmonary vascular congestion. The aortic knob appears mildly prominent compared to prior. Inspiration is shallow. There is stable mild stranding opacity in the lung bases, likely scarring or atelectasis. No pleural effusion or pneumothorax seen. No grossly displaced rib fractures seen. IMPRESSION: Mildly prominent appearance of the aortic knob. This could be artifactual in nature from projection. However, in the setting of trauma, follow-up chest CT recommended to evaluate the mediastinum. ACT 112: Negative or not required by law. Electronically signed by: Pavel Rangel M.D. 07/12/2025 2:[address] 07/12/25 14:09 CT SCAN OF THE BRAIN WITHOUT IV CONTRAST CLINICAL HISTORY: Fall with head injury. COMPARISON STUDY: MRI of the brain November 14, 2023. Head CT July 06, 2024. TECHNIQUE: Unenhanced axial CT scan of the brain was performed from the vertex to the skull base. A dose lowering technique was utilized adhering to the principles of ALARA. FINDINGS: Brain parenchyma: No acute intracranial hemorrhage, midline shift or mass effect is present. Ríos-white matter differentiation is preserved. There are no extra- axial fluid collections. There are no findings to suggest acute dural sinus thrombosis or acute territorial infarct. Prominence of extra-axial spaces overlying the cerebellar hemispheres is unchanged. White matter hypodensities are unchanged and favor small vessel disease. Ventricles, sulci, cisterns: There is no hydrocephalus. The basal cisterns are patent. Calvarium: There are no calvarial fractures. Sinuses and mastoids: Postoperative findings within the sinuses are partially imaged. Mild right maxillary sinus mucosal thickening is partially imaged. The mastoid air cells are well pneumatized. Orbits: The bony orbits are grossly intact. IMPRESSION: 1. No acute intracranial findings. No change in appearance of the brain. 2. No calvarial fractures. ACT 112: Negative or not required by law. Electronically signed by: Judah Dodd M.D. 07/12/2025 3:13 PM Discharge Plan Visit Data Chief Complaint: Fall Stated Complaint: FALL, HEAD INJURY ED Provider: Jose Ramon Parks Discharge Problem: Fall, Ataxia, Vertigo, Contusion, Ambulatory dysfunction, CKD (chronic kidney disease) Patient Disposition: Admitted As Inpatient Condition: Fair Discharge Instructions Interventions: ED Discharge Assessment Last Done: 07/12/25 22:26
--- NOTE | 2025-07-12 14:35 | XRay Report ---
XR chest 1V portable CLINICAL HISTORY: Trauma COMPARISON STUDY: 06/29/2025 FINDINGS: Stable pacemaker. Stable cardiomegaly without pulmonary vascular congestion. The aortic kno b appears mildly prominent compared to prior. Inspiration is shallow. There is stable mild stranding opacity in the lung bases, likely scarring or atelectasis. No pleural effusion or pneumothorax seen. No grossly displaced rib fractures seen. IMPRESSION: Mildly prominent appearance of the aortic knob. This could be artifactual in nature from projection. However, in the setting of trauma, follow-up chest CT recommended to evaluate the medias tinum. ACT 112: Negative or not required by law. Electronically signed by: Ricardo Rangel M.D. 07/12/2025 2:33 PM
[2025-07-12] MEDS: SODIUM CHLORIDE 0.9% 500 ML IV ONE (14:36)
[2025-07-12 14:38] LABS: Hematocrit (blood only) 43.9 % (42.0-52.0); Hemoglobin 14.6 g/dl (14.0-18.0); Immature Granulocytes # (auto) 0.02 K/uL (0.01-0.20); Immature Granulocytes % (auto) 0.4 %; Mean Corpuscular Hemoglobin 30.9 pg (25.0-34.0); Mean Corpuscular Volume 92.8 fL (80.0-100.0); Platelet Count 145 K/uL (130-400); RDW Standard Deviation 51.3 fL (36.4-46.3); Red Blood Count 4.73 M/uL (4.70-6.10); White Blood Count 5.64 K/ul (4.8-10.8)
[2025-07-12] MEDS: OPTIRAY 320 100ml IV ONE (14:43)
[2025-07-12 14:58] LABS: Alanine Aminotransferase 13.0 U/L (7-52); Albumin Globulin Ratio 1.2 (0.9-2); Albumin Level 3.9 gm/dl (3.4-5.0); Alkaline Phosphatase 160.0 U/L (34-104); Anion Gap 7.0 (3-11); Bilirubin,Total 1.4 mg/dl (0.2-1.0); Blood Urea Nitrogen 24.0 mg/dl (6-23); Calcium 9.3 mg/dl (8.6-10.3); Carbon Dioxide 28.0 mmol/L (21-32); Chloride 106.0 mmol/L (98-107); Creatinine Clr Calc Pharmacy 42.1 ml/min; Globulin 3.2 gm/dl (2.5-4.0); Glucose 89.0 mg/dl (70-99(Fasting)); Lipase 20.0 U/L (11-82); Potassium 3.7 mmol/L (3.5-5.1); Sodium 141.0 mmol/L (136-145); Total Protein 7.1 gm/dl (6.0-8.3)
[2025-07-12 15:04] LABS: INR 1.2 (0.9-1.1); Partial Thromboplastin Time 29 Seconds (21-31); Prothrombin Time 12.5 Seconds (9.0-12.0)
--- NOTE | 2025-07-12 15:15 | CT Scan Report ---
CT SCAN OF THE BRAIN WITHOUT IV CONTRAST CLINICAL HISTORY: Fall with head injury. COMPARISON STUDY: MRI of the brain November 14, 2023. Head CT July 06, 2024. TECHNIQUE: Unenhanced axial CT scan of the brain was performed from the vertex to the skull base. A dose lowering technique was utilized adhering to the principles of ALARA. FINDINGS: Brain parenchyma: No acute intracranial hemorrhage, midline shift or mass effect is present. Ríos-whi te matter differentiation is preserved. There are no extra-axial fluid collections. There are no find ings to suggest acute dural sinus thrombosis or acute territorial infarct. Prominence of extra-axial spaces overlying the cerebellar hemispheres is unchanged. White matter hypodensities are unchanged an d favor small vessel disease. Ventricles, sulci, cisterns: There is no hydrocephalus. The basal cisterns are patent. Calvarium: There are no calvarial fractures. Sinuses and mastoids: Postoperative findings within the sinuses are partially imaged. Mild right maxi llary sinus mucosal thickening is partially imaged. The mastoid air cells are well pneumatized. Orbits: The bony orbits are grossly intact. IMPRESSION: 1. No acute intracranial findings. No change in appearance of the brain. 2. No calvarial fractures. ACT 112: Negative or not required by law. Electronically signed by: Judah Dodd M.D. 07/12/2025 3:13 PM
--- NOTE | 2025-07-12 15:17 | CT Scan Report ---
CHEST CT WITH CONTRAST HISTORY: Acute chest trauma. 0Trauma TECHNIQUE: Multiaxial CT images of the chest were performed following the IV administration of 90 cc of Optiray. A dose lowering technique was utilized adhering to the principles of ALARA. COMPARISON: CT abdomen and pelvis of same day FINDINGS: Heterogeneity of the thyroid. There is a single lead left subclavian pacer. Mild cardiomega ly with extensive coronary artery calcifications. No thoracic aortic aneurysm. The opacified pulmonar y artery is unremarkable. Trace pericardial effusion. No pathologically enlarged lymph nodes. Trace l eft pleural effusion with mild bibasilar groundglass opacities. Central airways are patent. CT abdomen and pelvis dictated separately. Left hepatic lobe cyst. Moderate nodularity of the liver s uggestive of cirrhosis. Unremarkable soft tissues. Gynecomastia. No acute fracture identified. IMPRESSION: 1. No acute posttraumatic intrathoracic abnormality identified. 2. Trace pericardial and left pleural effusions. 3. Bibasilar groundglass densities favor atelectasis. An infectious or inflammatory process considere d less likely. 4. CT abdomen and pelvis dictated separately. ACT 112: Negative or not required by law. Electronically signed by: Benjamin Burgess M.D. 07/12/2025 3:16 PM
--- NOTE | 2025-07-12 15:17 | CT Scan Report ---
CT SCAN OF THE CERVICAL SPINE CLINICAL HISTORY: Trauma. COMPARISON STUDY: CT angiogram of the neck dated 07/30/2023. TECHNIQUE: CT scan of the cervical spine is performed from the skull base to the upper thoracic spine . Images are reviewed in the axial, sagittal, and coronal planes. IV contrast was not administered fo r this examination. A dose lowering technique was utilized adhering to the principles of ALARA. FINDINGS: Skeletal structures: The skeletal structures are osteopenic. There is no evidence of fracture or subl uxation involving the cervical spine. Vertebral body height and alignment are maintained. Anterior os teophytes are seen throughout. The odontoid process and lateral masses are intact noting productive d egenerative changes. The atlantoaxial articulation is preserved. The spinous processes appear intact. Mild facet arthropathy is seen in the lower cervical region. Intervertebral discs: There is moderate disc space narrowing at C3-C4 and C5-C6 with mild endplate sc lerosis. Central canal: Posterior disc osteophyte complexes at C3-C4 and C5-C6 likely contribute to acquired c ompromise of the central canal. Soft tissues: The prevertebral and paraspinous soft tissues are within normal limits. A pacemaker noel d is seen at the left thoracic inlet. There is a 2.2 cm right lobe thyroid nodule. There is atheroscl erotic calcification of the carotid bulbs. A 3.5 cm lipoma is seen within the soft tissues of the rig ht anterior neck. Calvarium: The visualized calvarium at the skull base appears intact. Brain parenchyma: Partially visualized brain parenchyma at the skull base is within normal limits. Sinuses and mastoids: There is evidence of previous paranasal sinus surgery. Mucosal thickening is no chu in the maxillary antra, right side greater than left. The mastoid air cells are well pneumatized. Cerumen is noted in the external auditory canals. Lung apices: Clear as visualized. IMPRESSION: 1. There is no evidence of fracture or subluxation involving the cervical spine. 2. Osteopenia and spondylotic change as above. 3. There is a 2.2 cm right lobe thyroid nodule. A nonemergent thyroid ultrasound is recommended in fo llow-up. ACT 112: Negative or not required by law. Electronically signed by: Tommy Kern M.D. 07/12/2025 3:16 PM
--- NOTE | 2025-07-12 15:30 | CT Scan Report ---
CT SCAN OF THE ABDOMEN AND PELVIS WITH IV CONTRAST CLINICAL HISTORY: Trauma. COMPARISON STUDY: Prior abdominal CT scans, most recently dated 07/16/2024. TECHNIQUE: Following the IV administration of 90 cc of Optiray 320, CT scan of the abdomen and pelvi s is performed from the lung bases to the proximal femora. Images are reviewed in the axial, sagittal , and coronal planes. IV contrast was administered without complication. A dose lowering technique wa s utilized adhering to the principles of ALARA. CT DOSE: 4106.75 mGy.cm FINDINGS: Lung bases: The heart is enlarged noting a small pericardial effusion. The coronary arteries are dens ro calcified. A pacemaker lead is in place. There is bibasilar scarring/atelectasis. No airspace con solidation typical for pneumonia or pleural effusion is identified. There is no basilar pneumothorax. Liver: The contrast-enhanced liver is normal in size and heterogeneous in attenuation. There is no in trahepatic biliary ductal dilatation. The hepatic veins and portal veins are patent. A 2.8 cm left lo be hepatic cyst is unchanged. Gallbladder: Unremarkable. Spleen: Normal in size and attenuation. Pancreas: Unremarkable. Adrenal glands: Unremarkable. Kidneys: The contrast enhanced kidneys demonstrate marked cortical atrophy and are without hydronephr osis. The kidneys enhance symmetrically. There is a 4.5 cm right renal cyst. Additional subcentimeter cortical hypodensities also likely represent cysts but are too small for definitive characterization . Abdominal vasculature: The abdominal aorta is normal in course and caliber noting mild to moderate at herosclerotic calcification. Bowel: There is postoperative change from sigmoid colon resection with colocolonic anastomosis. No dick wel obstruction is seen. There is mild diverticulosis of the remaining colon without CT evidence of a cute diverticulitis. There is also diverticulosis of the distal ileum. Moderate amount of fecal reten tion is seen throughout the colon. The appendix is not visualized. Peritoneum: There is no intraperitoneal free air or abdominal ascites. There is a fat and bowel conta ining umbilical hernia. A hernia in the left ventral pelvis contains a tiny segment of colon. Lymphadenopathy: Again seen are numerous mildly enlarged retroperitoneal lymph nodes. A left para-aor tic node on image #167 measures 2.0 x 1.2 cm. Pelvic viscera: The prostate gland is enlarged and heterogeneous. The bladder wall appears thickened/ trabeculated indicating chronic outlet obstruction. There are bilateral fat-containing groin hernias. Skeletal structures: The skeletal structures are osteopenic. There is moderate lumbosacral spondylosi s and scoliosis. The Lumbosacral spine, bony pelvis, and proximal femora appear intact. No lytic or b lastic lesions are seen. IMPRESSION: 1. There is no evidence of solid organ injury in the abdomen or pelvis. 2. Cardiomegaly and cardiac pacemaker. 3. There is diverticulosis of the small bowel and colon without CT evidence of acute diverticulitis. 4. Numerous mildly enlarged retroperitoneal lymph nodes are similar to prior studies dating back to . These are pathologically indeterminant but of low suspicion given the long-term stability. [facility]ini jos[facility] miguel correlation will be required. 5. Additional findings as detailed above. ACT 112: Negative or not required by law. Electronically signed by: Tommy Kern M.D. 07/12/2025 3:29 PM
--- NOTE | 2025-07-12 16:51 | History & Physical Report ---
Date of Service July 12, 2025 Assessment & Plan (1) Ataxia: (2) CKD stage 3a, GFR 45-59 ml/min: (3) Chronic atrial fibrillation: (4) Chronic systolic (congestive) heart failure: (5) Dementia without behavioral disturbance: (6) On anticoagulant therapy: (7) Anxiety and depression: Plan Patient 84-year-old gentleman with acute on chronic ataxia and lightheadedness and dizziness after a fall and head trauma at home. Low suspicion for acute intracerebral event. Suspect this is exacerbation of his chronic ataxia. Concern that patient's medications could be contributing to his symptoms. On bupropion, Trintellix, tamsulosin, torsemide, Aldactone. All of these can cause fluctuation in blood pressures, adverse effects of dizziness. Check orthostatic vitals Repeat MRI brain to rule out new interests cranial event since last year Therapy evaluation Schedule meclizine since patient reports that this has helped significantly in the past Anticipate if able to ambulate safely at home with introduction of meclizine discharged home to continue to follow with outpatient providers. Continue other outpatient medications as ordered. At this point will not adjust any of his medications. But may need to consider with his outpatient providers if his symptoms persist History of Present Illness Chief Complaint: Dizziness and trouble walking Primary Care Provider: Eamon Felder, Patient 84-year-old gentleman who has a history of dizziness/vertigo and ataxia dating back to July 2023. He has had some hospitalizations related to the symptoms. He is also had extensive outpatient evaluation including MRIs of his brain, ENT evaluation, dizziness clinic treatments. Thoughts that potentially could be medication related. He has had some improvement with meclizine but does not take that on a regular basis. Dima maneuvers seems to have not done much for improvement of his symptoms. This past Friday 2 days ago, he fell when he was trying to put a pain patch on. He did hit his head. He was able to get himself up and really did not feel as though he needed to seek medical attention at that time. However he feels that since then he has had a little bit worsening of his ataxia and difficulty walking. He does take Eliquis. He was Being seen by a egg trayer today in the office for follow-up of his recent pacemaker insertion when he mentioned to them that he was still having some dizziness since his fall on Friday. They recommended him be evaluated in the emergency room. Patient had a pacemaker placed couple weeks ago for symptomatic bradycardia. Evaluation in the emergency room was unremarkable for any acute findings. All imaging studies were unremarkable. However, when they stood the patient up to walk him and see if he could be discharged home he had severe ataxia and there was concern that he would fall at home and sustaining further injuries. He was referred to our service for further evaluation. Time my evaluation patient was resting comfortably. He does confirm that he has had the symptoms on and off for at least a couple years. Reviewing outside EMR noted that he first had symptoms at least dating back to July 2023. He confirms the above history that he has had MRI, meclizine, Dima maneuvers, ENT visits. He did confirm that meclizine seems to help. He did not try taking any meclizine in the last couple days. He denies any fever or chills. No new shortness of breath. No chest pain. He states he has irritable bowel and watches his diet quite closely with small frequent meals. Also tries to limit his salt intake. No new problems with his bowel or bladder. Has chronically some swelling in his left lower extremity. Patient states that he has been on some medication for the prostate for at least several months. He also states that he noticed that he will get this lightheadedness/dizziness with change in position. And is not only when he sits up or stands up eat. He states that he sometimes gets the sensations when he goes from standing to lying down. Allergies Allergy/AdvReac Type Severity Reaction Status Date / Time house dust Allergy Intermediate Congested Verified 07/12/25 16:51 Home Medications Medication Instructions Recorded Confirmed Type apixaban 2.5 mg tablet (Eliquis) 2.5 mg PO AMHS 05/17/20 06/29/25 History tamsulosin 0.4 mg capsule 0.4 mg PO HS 11/05/22 06/29/25 History cyanocobalamin (vitamin B-12) 1,000 mcg sublingual QAM 04/07/23 06/29/25 History 1,000 mcg sublingual tablet fluticasone propionate 50 1 spray intranasal QAM 04/07/23 06/29/25 History mcg/actuation nasal spray,suspension ipratropium bromide 42 mcg (0.06 2 spray intranasal TID PRN 04/07/23 06/29/25 History %) nasal spray allergies erythromycin with ethanol 2 % 1 applic topical DAILY 11/14/23 06/29/25 History topical swab (Mckinley Pads) lorazepam 1 mg tablet 0.5 - 1 mg PO TID PRN Anxiety 11/14/23 06/29/25 History meclizine 25 mg tablet 25 mg PO TID PRN Vertigo 11/14/23 06/29/25 History pantoprazole 40 mg tablet,delayed 40 mg PO BIDM 11/14/23 06/29/25 History release cholestyramine (with sugar) 4 gram 4 g PO .MID AFTERNOON 08/12/24 08/12/24 History powder for susp in a packet clindamycin phosphate 1 % topical 1 applic topical DAILY PRN FACE 08/12/24 06/29/25 History swab doxycycline monohydrate 50 mg 50 mg PO DAILY 08/12/24 06/29/25 History capsule ergocalciferol (vitamin D2) 1,250 50,000 unit PO WK 08/12/24 06/29/25 History mcg (50,000 unit) capsule hyoscyamine sulfate 0.125 mg 0.125 mg PO Q4 PRN Abdominal Pain 08/12/24 06/29/25 History sublingual tablet metoprolol succinate 25 mg 12.5 mg PO AMHS 08/12/24 06/29/25 History tablet,extended release 24 hr spironolactone 25 mg tablet 12.5 mg PO 3XWK 08/12/24 06/29/25 History Saccharomyces boulardii 250 mg 250 mg PO DAILY 07/12/25 07/12/25 History capsule (Florastor) bupropion HCl 100 mg tablet,12 hr 100 mg PO QAM 07/12/25 07/12/25 History sustained-release dutasteride 0.5 mg capsule 0.5 mg PO HS 07/12/25 07/12/25 History loperamide 2 mg tablet 2 mg PO QID PRN Diarrhea 07/12/25 07/12/25 History torsemide 5 mg tablet 5 mg PO QAM 07/12/25 07/12/25 History Past Med/Surg History Problem List (Updated 07/12/25 @ 16:57 by Fidencio Ibarra DO) Ataxia Foraminal stenosis of lumbar region Scoliosis of lumbar region due to degenerative disease of spine in adult CKD stage 3a, GFR 45-59 ml/min Atrial fibrillation Acute on chronic combined systolic and diastolic CHF (congestive heart failure) Hypomagnesemia (Acute) Acute hypokalemia (Acute) Bilateral lower extremity edema (Acute) Fluid retention (Acute) Acute exacerbation of chronic heart failure (Acute) Acute on chronic systolic (congestive) heart failure Left patella fracture Hemorrhagic prepatellar bursitis of left knee Incomplete emptying of bladder Hematuria MARIA C (generalized anxiety disorder) Major depressive disorder Elevated troponin Internal carotid artery thrombosis Suicidal ideations Chronic atrial fibrillation Lightheadedness (Acute) Depression with anxiety MYRON (obstructive sleep apnea) HFrEF (heart failure with reduced ejection fraction) buttermaker (current) use of anticoagulants (Acute) Gastroesophageal reflux disease concurrent with and due to paraesophageal hernia Chronic pharyngitis Depression S/P TKR (total knee replacement) LBBB (left bundle branch block) Hypertension Depression with suicidal ideation (Acute) Lumbar spondylosis Lumbar stenosis Stage III chronic kidney disease Allergic fungal sinusitis (AFS) Chronic nonallergic rhinitis BPH NOS w ur obs/LUTS Renal cyst, acquired, right Sensorineural hearing loss (SNHL) of both ears Pancreatitis Readmitted to [facility] May 17, 2020 to May 19, 2020 with acute pancreatitis. Furosemide decreased to 20 mg/day on discharge. 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 Hypertension Hyperlipidemia Hearing deficit BILATERAL AIDES Vertigo IBS (irritable bowel syndrome) Medical History (Updated 07/12/25 @ 16:57 by Fidencio Ibarra DO) Anxiety Chronic systolic (congestive) heart failure Dementia without behavioral disturbance Stage 3b chronic kidney disease Hypersomnolence disorder Essential tremor Dyslipidemia MYRON on CPAP Hx of colonic polyp Vitamin D deficiency Pernicious anemia Lumbar spondylosis with myelopathy Rosacea On anticoagulant therapy Anxiety and depression Hx of gout LBBB (left bundle branch block) CHRONIC Asthma STABLE Osteoarthritis Sciatica BPH (benign prostatic hyperplasia) Diverticular disease DIVERTICULITIS S/P PERFORATION/COLON RESECTION (2005) GERD (gastroesophageal reflux disease) Surgical History History of cataract surgery RT History of arthroplasty of right knee History of colonoscopy 2019 History of esophagogastroduodenoscopy (EGD) 2019 History of appendectomy History of colostomy reversal History of bowel resection DIVERTICULITIS S/P PERFORATION/COLON RESECTION (2005) History of endoscopic sinus surgery Right side-Dr. Yuan History of tonsillectomy Family History Mother Family hx of colon cancer Family history of diabetes mellitus Social History Smoking Status: Former smoker Tobacco Type: Cigarettes packs per day: 0.5; Second Hand Exposure: No; Do You Dip or Chew Tobacco: No; Hx Alcohol Use: Yes Alcohol type: beer and wine Hx Substance Use: No Preferred Language: Yi Communication Ability: Effective Visual Impairment: Limited Hearing Ability: Use of Hearing Aid Tank Inspector Required: No Beliefs That Will Affect Care: None marital status: unknown marital status details: Engaged Current Living Situation: Spouse Current Living Situation Comment: lives w/ significant other Laura How many Children do You have: 2 other: Brother Matthieu is medical power of workers compensation attorney, Feels Safe at Home: Yes Childhood Exposure to Second-Hand Smoke: No Diet: ideal protein and low salt Diet Comment: Low fat Gender Identity: Male Assistive Devices: Cane and CPAP Review of Systems Review of Systems: Pertinent positive and negative review of systems as mentioned in the HPI Physical Exam Physical Exam: Constitutional: Alert, nontoxic, no acute distress HEENT: Mucous membranes moist. Sclera clear, tympanic membranes clear, no significant inflammation in the canal Neck: Soft, no adenopathy Lungs: Clear to auscultation, decreased, no wheezes rales or rhonchi CV: S1-S2, irregular Abdomen: Soft, nontender, nondistended Extremities: 1+ edema left lower extremity greater than right Musculoskeletal: No significant joint tenderness Neuro: No focal deficits, negative Betsy-Hallpike Psych: Cooperative, normal mood Results & Data Results & Data Vital Signs (Past 12 Hours) Vital Signs Temp Pulse Pulse Resp BP BP Pulse Ox 07/12/25 15:22 74 18 141/88 H 100 07/12/25 14:56 70 07/12/25 14:29 07/12/25 14:29 73 14 131/80 97 07/12/25 13:58 36.4 C L 71 18 129/82 98 O2 Del Method 07/12/25 15:22 Room Air 07/12/25 14:56 07/12/25 14:29 Room Air 07/12/25 14:29 Room Air 07/12/25 13:58 Room Air Diagnostic Findings Reviewed imaging, laboratory and diagnostic studies. Pertinent findings as below. Personally reviewed EKG: Paced rhythm CBC within normal ranges Electrolytes within normal range Creatinine 1.66, baseline LFTs stable CT head, chest, cervical spine, abdomen pelvis with no acute abnormalities Chest x-ray: Personally viewed, no acute cardiopulmonary abnormalities MRI of the brain 2023, no acute abnormalities Reviewed outside EMR: Reviewed medication list Reviewed problem list Echocardiogram 2023: Ejection fraction 35 to 40%, moderately enlarged left atrium, septal wall motion consistent with left bundle branch block Creatinine baseline 1.6-1.8 Code Status & VTE Plan VTE Prophylaxis Plan VTE Prophylaxis will be ordered: No Reason for no VTE drug order: Contraindicated
[2025-07-12 17:29] LABS: Appearance Urine Clear (Clear); Glucose Urine UA Negative (Negative)
[2025-07-12] MEDS ORDERED: MAGNESIUM HYDROXIDE SUSP 30 ML UDC PO PRN (23:06)
[2025-07-12] MEDS ORDERED: ACETAMINOPHEN 325 MG TAB PO PRN (23:06)
[2025-07-12] MEDS ORDERED: POLYETHYLENE (MIRALAX) 17 GM PACK PO PRN (23:06)
[2025-07-13] MEDS: APIXABAN 2.5 MG TAB PO SCH (00:01)
[2025-07-13] MEDS: METOPROLOL SUCC 25MG EXT REL TAB PO SCH (00:02)
[2025-07-13] MEDS: TAMSULOSIN HCL 0.4 MG CAP PO SCH (00:02)
[2025-07-13] MEDS: MECLIZINE HCL 25 MG TAB PO SCH (00:05)
[2025-07-13] MEDS: FINASTERIDE 5 MG TAB PO SCH (09:07)
[2025-07-13] MEDS: DOXYCYCLINE HYCLATE 50 MG CAP PO SCH (09:07)
--- NOTE | 2025-07-13 12:34 | Electrocardiogram Report ---
Test Reason : Blood Pressure : */* mmHG Vent. Rate : 70 BPM Atrial Rate : 90 BPM P-R Int : * ms QRS Dur : 124 ms QT Int : 442 ms P-R-T Axes : 1 -44 -7 degrees QTcB Int : 477 ms Ventricular-paced rhythm Abnormal ECG When compared with ECG of 29-Jun-2025 09:30, No significant change was found Confirmed by Shamir Tse ([id number]) on 07/13/2025 12:33:58 PM Referred By: REFERRED SELF Confirmed By: Shamir Tse
--- NOTE | 2025-07-13 15:00 | Hospitalist Progress Note ---
<Statement entered by Fidencio Ibarra DO - 07/13/25 16:24> I have seen and examined the patient and have discussed the case with the advance practice provider. I have reviewed the advanced practitioner's documentation, and I agree with, and take responsibility for that plan of care. Patient reported some improvement with meclizine, encouraged him to take it as scheduled. Will continue to evaluate how he tolerates his symptoms with the meclizine before adjusting any of his medications that certainly can contribute to some of his dizziness symptoms. Orthostatic vital signs unremarkable. I spent a total of 14 minutes coordinating, documenting, and providing care for this patient excluding time spent by another provider/Q. Date of Service July 13, 2025 Assessment & Plan (1) Ataxia: (2) CKD stage 3a, GFR 45-59 ml/min: (3) Chronic atrial fibrillation: (4) Chronic systolic (congestive) heart failure: (5) Dementia without behavioral disturbance: (6) On anticoagulant therapy: (7) Anxiety and depression: Plan Patient is an 84y/o M with PMHx significant for HTN, HLD, hyperparathyroidism, MYRON on CPAP, permanent atrial fibrillation anticoagulated on Eliquis, LBBB, chronic systolic congestive HF, pernicious anemia, vitamin D deficiency, IBS, CKD stage IIIb, lumbar spondylosis with myelopathy, sacroiliitis, mild essential tremor, chronic dizziness/vertigo and chronic ataxia who presented to the ED on 07/12/25 with complaints of dizziness and difficulty with ambulation. Acute on chronic ataxia and vertigo Has been having significant issues with balance and vertigo since July 2023, has had several ER visits for such with several negative imaging studies including brain MRI. Has also been seen by multiple specialists for these problems including ENT and balance clinic w/o any specific cause being identified. Head CT was unremarkable in the ED. Low suspicion for an acute intracerebral event. Favor acute exacerbation of ataxia and vertigo given similar presentation when compared to prior ED visits. Cannot have brain MRI completed as he recently had a pacemaker implanted last month for symptomatic bradycardia. Prior attempts at canalith repositioning maneuvers have been unsuccessful. Has however achieved relief with meclizine in the past. There has been concern that the patient's medications could be contributing to his symptoms. Spironolactone, torsemide, Wellbutrin, dutasteride and tamsulosin can all cause fluctuation in blood pressure with adverse effect of dizziness. Did check orthostatic vitals which were negative. Patient has also been on doxycycline for "several years" for acne management. Doxycycline with documented possible adverse effect of dizziness as well. Will discontinue doxycycline at patient's request. Trial of scheduled meclizine started this morning with significant improvement in dizziness. Has unfortunately had 2-3 falls in the past 2 months. Was evaluated by PT/OT this morning. Recommending SNF. Given patient's age and anticoagulation status, feel that SNF would be appropriate. Will have patient discuss with CM regarding this. Continue scheduled meclizine. At this point will not adjust any of his other medications, however, may need to consider this eventually if his sx persist. Permanent atrial fibrillation anticoagulated on Eliquis Remains rate controlled, continue BB. Continue Eliquis. BPH Continue Flomax, dutasteride for now. Mood disorder Continue Wellbutrin, follows with [facility] psychiatry. Chronic systolic congestive HF Follows with [facility] cardiology. Continue diuretic regimen for now as per above. Has chronic swelling in the left lower extremity, appears unchanged from baseline. Incidental finding noted on cervical spine CT Noted a 2.2cm right lobe thyroid nodule, check TSH/reflex T4. Recommend nonemergent outpatient thyroid ultrasound >> can coordinate with PCP. CKD stage IIIb Baseline creatinine 1.6-1.8 per chart review, was stable on admission. Continue to monitor and avoid nephrotoxic agents as able. DVT Prophylaxis: Eliquis Code Status: FULL CODE PCP: Eamon Felder, DO Disposition: ? Possible DC to SNF tomorrow, will need to further discuss with the patient and CM. Patient may prefer . Patient seen in collaboration with Dr. Ibarra. Please see addendum. I spent a total of 60 minutes coordinating, documenting, and providing care for this patient excluding time spent in the performance of separately billed services or time spent by another provider/QHP. This included personally reviewing all current laboratories and imaging studies, medical reconciliation, outpatient chart review and discussion with specialists. This chart was completed in part utilizing Speech Voice Recognition Software. Grammatical errors, random word insertions, pronoun errors, and incomplete sentences are an occasional consequence of this system due to software limitations, ambient noise, and hardware issues. Any formal questions or concerns about the content, text, or information contained within the body of this dictation should be directly addressed to the provider for clarification. Admission and Anticipated Discharge Date Admission Date: July 12, 2025 Subjective Patient seen and examined in room N384-1. EO. Plan to work with therapy today s/p meclizine to reevaluate dizziness. Review of Systems Review of Systems: At least ten systems reviewed and negative, except as noted in the subjective section. Physical Exam Physical Exam: Constitutional: Alert, nontoxic, no acute distress HEENT: Mucous membranes moist, sclera clear Neck: Soft, no adenopathy Lungs: CTAB, no wheezes rales or rhonchi CV: S1-S2, irregular Abdomen: Soft, nontender, nondistended Extremities: 1+ edema LLE (chronic), no RLE edema Musculoskeletal: No significant joint tenderness Neuro: No focal deficits Psych: Cooperative, normal mood Results & Data Results & Data Vital Signs (Past 12 Hours) Vital Signs Temp Pulse Resp BP Pulse Ox O2 Del Method 07/13/25 07:37 36.3 C L 81 18 120/77 92 Room Air 07/13/25 07:00 Room Air, CPAP Laboratory Results Urine 07/12/25 Range/Units Unknown Urine Color Yellow Urine Appearance Clear (Clear) Urine pH 5.0 (4.5-7.5) Ur Specific [place] 1.024 (1.000-1.030) Urine Protein Negative (Negative) Urine Glucose (UA) Negative (Negative)
[2025-07-13] MEDS: LOPERAMIDE HCL 2 MG CAP PO STA (18:12)
[2025-07-13] MEDS: LORazepam 0.5 MG TAB PO PRN (20:13)
[2025-07-14 07:31] LABS: Hematocrit (blood only) 38.0 % (42.0-52.0); Hemoglobin 12.9 g/dl (14.0-18.0); Mean Corpuscular Hemoglobin 31.1 pg (25.0-34.0); Mean Corpuscular Volume 91.6 fL (80.0-100.0); Platelet Count 120 K/uL (130-400); RDW Standard Deviation 50.4 fL (36.4-46.3); Red Blood Count 4.15 M/uL (4.70-6.10); White Blood Count 5.65 K/ul (4.8-10.8)
[2025-07-14] MEDS: LORazepam 1 MG TAB PO STA (09:02)
[2025-07-14 09:51] LABS: Anion Gap 9.0 (3-11); Calcium 8.6 mg/dl (8.6-10.3); Carbon Dioxide 25.0 mmol/L (21-32); Chloride 106.0 mmol/L (98-107); Potassium 3.9 mmol/L (3.5-5.1); Sodium 140.0 mmol/L (136-145)
[2025-07-14 09:57] LABS: Blood Urea Nitrogen 25.0 mg/dl (6-23); Creatinine Clr Calc Pharmacy 39.2 ml/min; Glucose 86.0 mg/dl (70-99(Fasting))
[2025-07-14 10:39] LABS: Thyroid Stimulating Hormone 3.122 uIu/ml (0.300-4.500)
--- NOTE | 2025-07-14 11:59 | Hospitalist Progress Note ---
Date of Service July 14, 2025 Assessment & Plan (1) Ataxia: (2) CKD stage 3a, GFR 45-59 ml/min: (3) Chronic atrial fibrillation: (4) Chronic systolic (congestive) heart failure: (5) Dementia without behavioral disturbance: (6) On anticoagulant therapy: (7) Anxiety and depression: Plan Patient is an 84y/o M with PMHx significant for HTN, HLD, hyperparathyroidism, MYRON on CPAP, permanent atrial fibrillation anticoagulated on Eliquis, LBBB, chronic systolic congestive HF, pernicious anemia, vitamin D deficiency, IBS, CKD stage IIIb, lumbar spondylosis with myelopathy, sacroiliitis, mild essential tremor, chronic dizziness/vertigo and chronic ataxia who presented to the ED on 07/12/25 with complaints of dizziness and difficulty with ambulation. Acute on chronic ataxia and vertigo significant issues with balance and vertigo since July 2023, has had several ER visits for such with several negative imaging studies including brain MRI. Has also been seen by multiple specialists for these problems including ENT and balance clinic w/o any specific cause being identified. 2 falls in the past month. Head CT was unremarkable in the ED. Low suspicion for an acute intracerebral event. Favor acute exacerbation of ataxia and vertigo given similar presentation when compared to prior ED visits. Cannot have brain MRI completed as he recently had a pacemaker implanted last month for symptomatic bradycardia. Prior attempts at canalith repositioning maneuvers have been unsuccessful. Has however achieved relief with meclizine in the past. Spironolactone, torsemide, Wellbutrin, dutasteride and tamsulosin can all cause fluctuation in blood pressure with adverse effect of dizziness. Did check orthostatic vitals which were negative. Patient has also been on doxycycline for "several years" for acne management. D oxycycline with documented possible adverse effect of dizziness as well. D/c doxy 07/13. Trial of scheduled meclizine started 07/13 with significant improvement in dizziness. Still with sx requiring laying down 07/14. Continue scheduled meclizine. Was evaluated by PT/OT -- recs acute rehab - will follow to assist with dc planning Permanent atrial fibrillation anticoagulated on Eliquis Remains rate controlled, continue BB. Continue Eliquis. BPH Continue Flomax, dutasteride for now. Mood disorder Continue Wellbutrin, follows with [facility] psychiatry. Chronic systolic congestive HF Follows with [facility] cardiology. Continue diuretic regimen for now as per above. Has chronic swelling in the left lower extremity, appears unchanged from baseline. Incidental finding noted on cervical spine CT Noted a 2.2cm right lobe thyroid nodule, check TSH/reflex T4. Recommend nonemergent outpatient thyroid ultrasound >> can coordinate with PCP. CKD stage IIIb Baseline creatinine 1.6-1.8 per chart review, was stable on admission. Continue to monitor and avoid nephrotoxic agents as able. DVT Ppx: Eliquis Code Status: FULL Disposition: Remain in hospital overnight, possible dc tomorrow rehab vs HH I spent a total of 35 minutes coordinating, documenting, and providing care for this patient excluding time spent in the performance of separately billed services or time spent by another provider/QHP. This included personally reviewing all current laboratories and imaging studies, medical reconciliation, outpatient chart review and discussion with specialists. Admission and Anticipated Discharge Date Admission Date: July 12, 2025 Supervising Physician Co-Signing Physician Notes I have seen and discussed the case with the collaborating advanced practitioner. I agree with the above PN. I have reviewed and confirmed the patients medical history, the findings on physical examination, and the patients diagnosis and treatment plan with Nimisha ROLDAN and agree with the information documented. I spent a total of 10 minutes coordinating, documenting, and providing care for this patient excluding time spent in the performance of separately billed services. All of the aforementioned completed outside of collaborating with the assigned advanced practitioner for a full treatment plan. I have reviewed the advanced practitioner's documentation, and I agree with, and take responsibility for the plan of care Subjective Patient reports having ongoing lightheadedness/dizziness this morning, states that he feels better whenever he is laying down. Attempted to get up to the bedside chair which worsened his symptoms. Previously has had this in January 2025, did not improve with Dima maneuver/PT therapy for BPPV. He denies any room spinning sensation, no falls since prior to admission where he fell backwards and hit his head on the ground. Reports having mild headache this morning, no other focal neurological defects,no gait disturbance. Physical Exam Physical Exam: General: awake, alert, no apparent distress, white male, appears younger than stated age Head: Normocephalic, atraumatic ENT: PERRL, EOMI, no pharyngeal exudate, mucous membranes moist Chest: Clear to auscultation, Pacemaker present right chest wall, few PVCs, on room air, no adventitious breath sounds Cardiac: Regular rate and rhythm, no murmur, no JVD, normal peripheral pulses, good capillary refill Abdominal: NABS x 4 quadrants, soft, nondistended, nontender to palpation, no rebound or guarding Extremities: Normal inspection, no peripheral edema or erythema, calfs nontender to palpation Psych: Normal mood and affect Neuro: AAO x 3, strength intact bilaterally and rated 5/5, no motor deficits, speech is clear, no peripheral sensory deficits Results & Data Results & Data Vital Signs (Past 12 Hours) Vital Signs Temp Pulse Resp BP Pulse Ox O2 Del Method 07/14/25 07:30 Room Air 07/14/25 07:13 36.4 C L 68 18 130/82 95 Room Air
[2025-07-14] MEDS: ADVANCED PROBIOTIC 625 MG CAPSULE PO SCH (16:20)
[2025-07-15 08:20] VITALS: BP 154/94; RESP 16; TEMP 97.5; O2SAT 94
[2025-07-15 11:29] LABS: Cdiff Toxin B Gene (2yr or >) Negative Cdiff Gene (Neg)
--- NOTE | 2025-07-15 13:01 | Discharge Summary ---
Date of Service July 15, 2025 Admission HPI Per Admitting Provider Patient 84-year-old gentleman who has a history of dizziness/vertigo and ataxia dating back to July 2023. He has had some hospitalizations related to the symptoms. He is also had extensive outpatient evaluation including MRIs of his brain, ENT evaluation, dizziness clinic treatments. Thoughts that potentially could be medication related. He has had some improvement with meclizine but does not take that on a regular basis. Dima maneuvers seems to have not done much for improvement of his symptoms. This past Friday 2 days ago, he fell when he was trying to put a pain patch on. He did hit his head. He was able to get himself up and really did not feel as though he needed to seek medical attention at that time. However he feels that since then he has had a little bit worsening of his ataxia and difficulty walking. He does take Eliquis. He was Being seen by a manager investment banking today in the office for follow-up of his recent pacemaker insertion when he mentioned to them that he was still having some dizziness since his fall on Friday. They recommended him be evaluated in the emergency room. Patient had a pacemaker placed couple weeks ago for symptomatic bradycardia. Evaluation in the emergency room was unremarkable for any acute findings. All imaging studies were unremarkable. However, when they stood the patient up to walk him and see if he could be discharged home he had severe atax ia and there was concern that he would fall at home and sustaining further injuries. He was referred to our service for further evaluation. Time my evaluation patient was resting comfortably. He does confirm that he has had the symptoms on and off for at least a couple years. Reviewing outside EMR noted that he first had symptoms at least dating back to July 2023. He confirms the above history that he has had MRI, meclizine, Dima maneuvers, ENT visits. He did confirm that meclizine seems to help. He did not try taking any meclizine in the last couple days. He denies any fever or chills. No new shortness of breath. No chest pain. He states he has irritable bowel and watches his diet quite closely with small frequent meals. Also tries to limit his salt intake. No new problems with his bowel or bladder. Has chronically some swelling in his left lower extremity. Patient states that he has been on some medication for the prostate for at least several months. He also states that he noticed that he will get this lightheadedness/dizziness with change in position. And is not only when he sits up or stands up eat. He states that he sometimes gets the sensations when he goes from standing to lying down. Admission Exam Per Admitting Provider Physical Exam: Constitutional: Alert, nontoxic, no acute distress HEENT: Mucous membranes moist. Sclera clear, tympanic membranes clear, no significant inflammation in the canal Neck: Soft, no adenopathy Lungs: Clear to auscultation, decreased, no wheezes rales or rhonchi CV: S1-S2, irregular Abdomen: Soft, nontender, nondistended Extremities: 1+ edema left lower extremity greater than right Musculoskeletal: No significant joint tenderness Neuro: No focal deficits, negative [place] Psych: Cooperative, normal mood Principal Diagnosis Ataxia Discharge Exam General: awake, alert, no apparent distress, white male Head: Normocephalic, atraumatic ENT: PERRL, EOMI, no pharyngeal exudate, mucous membranes moist Chest: Clear to auscultation, Pacemaker present right chest wall, few PVCs, on room air, no adventitious breath sounds Cardiac: Regular rate and rhythm, no murmur, no JVD, normal peripheral pulses, good capillary refill Abdominal: NABS x 4 quadrants, soft, nondistended, nontender to palpation, no rebound or guarding Extremities: Normal inspection, no peripheral edema or erythema, calfs nontender to palpation Psych: Normal mood and affect Neuro: AAO x 3, strength intact bilaterally and rated 5/5, no motor deficits, speech is clear, no peripheral sensory deficits, gait not assessed Discharge Data Allergies Allergy/AdvReac Type Severity Reaction Status Date / Time house dust Allergy Intermediate Congested Verified 07/12/25 16:51 Consultations 07/12/25 16:16 ED Decision to Admit Stat Ordered Studies 07/12/25 14:09 CT abd pelvis IV con only Stat CT cervical spine wo con Stat CT chest diagnostic w con Stat CT head/brain wo con Stat Hospital Course (1) Ataxia: (2) CKD stage 3a, GFR 45-59 ml/min: (3) Chronic atrial fibrillation: (4) Chronic systolic (congestive) heart failure: (5) Dementia without behavioral disturbance: (6) On anticoagulant therapy: (7) Anxiety and depression: Plan Patient is an 84y/o M with PMHx significant for HTN, HLD, hyperparathyroidism, MYRON on CPAP, permanent atrial fibrillation anticoagulated on Eliquis, LBBB, chronic systolic congestive HF, pernicious anemia, vitamin D deficiency, IBS, CKD stage IIIb, lumbar spondylosis with myelopathy, sacroiliitis, mild essential tremor, chronic dizziness/vertigo and chronic ataxia who presented to the ED on 07/12/25 with complaints of dizziness and difficulty with ambulation. Acute on chronic ataxia and vertigo significant issues with balance and vertigo since July 2023, has had several ER visits for such with several negative imaging studies including brain MRI. Has also been seen by multiple specialists for these problems including ENT and balance clinic w/o any specific cause being identified. 2 falls in the past month. Head CT was unremarkable in the ED. Low suspicion for an acute intracerebral event. Favor acute exacerbation of ataxia and vertigo given similar presentation when compared to prior ED visits. Cannot have brain MRI completed as he recently had a pacemaker implanted last month for symptomatic bradycardia. Prior attempts at canalith repositioning maneuvers have been unsuccessful. Has however achieved relief with meclizine in the past. Continue Meclizine around the clock for 2 more days. Spironolactone, torsemide, Wellbutrin, dutasteride and tamsulosin can all cause fluctuation in blood pressure with adverse effect of dizziness. Did check orthostatic vitals which were negative. Patient has also been on doxycycline for "several years" for acne management. Doxycycline with documented possible adverse effect of dizziness as well. D/c doxy 07/13. Was evaluated by PT/OT -- recs acute rehab - pt declined [facility] and prefers to go home with services. Permanent atrial fibrillation anticoagulated on Eliquis Remains rate controlled, continue BB. Continue Eliquis. BPH Continue Flomax, dutasteride for now. Mood disorder Continue Wellbutrin, follows with [facility] psychiatry. Chronic systolic congestive HF Follows with [facility] cardiology. Continue diuretic regimen for now as per above. Has chronic swelling in the left lower extremity, appears unchanged from baseline. Incidental finding noted on cervical spine CT Noted a 2.2cm right lobe thyroid nodule, check TSH/reflex T4. Recommend nonemergent outpatient thyroid ultrasound >> can coordinate with PCP. CKD stage IIIb Baseline creatinine 1.6-1.8 per chart review, was stable on admission. Continue to monitor and avoid nephrotoxic agents as able. DVT Ppx: Eliquis Code Status: FULL Disposition: Remain in hospital overnight, possible dc tomorrow rehab vs HH I spent a total of 35 minutes coordinating, documenting, and providing care for this patient excluding time spent in the performance of separately billed services or time spent by another provider/QHP. This included personally reviewing all current laboratories and imaging studies, medical reconciliation, outpatient chart review and discussion with specialists. Total Time Total Time Spent Total Time Spent (In Minutes): 35 Discharge Plan Discharge Items Patient Disposition: Home - Home Health Services Reason For Visit: ATAXIA Discharge Diagnosis: Ataxia Condition on Discharge: Fair Activity: Resume your previous activity Lifting: No more than 10 pounds Bathing: No limitations Exercise/Sports: Rest today and Gradually increase as tolerated Driving/Machine Use: Resume 3 days after discharge Weightbearing: Full weightbearing Non-emergency contact: Primary Care Provider Call non-emergency contact if: you have any medication questions and your symptoms worsen Follow-up/Referrals: Eamon Felder DO [Primary Care Provider] - 07/22/25 1:40 pm (Date & Time 07/22/2025 1:40 PM Provider: Eamon Felder DO [facility] ) Jg Farooq PA-C [Physician Web Producer] - (The office will call you to schedule an appointment.) Diet: Heart Healthy Addtl Attending Provider Instructions: You were admitted to [facility] due to dizziness and diagnosed with ataxia which was similar in presentation to previous issues with balance and vertigo since July 2023. During your stay here you were treated with supportive care, medications including meclizine and your symptoms improved. You worked with physical therapy and were able to participate. You declined a referral to [facility] for co ntinued rehab. Imaging studies which were completed include CT head, and were normal. MRI was recommended however due to your pacemaker implantation last month, this study was unable to be obtained. Doxycycline was discontinued as this can cause adverse effects such as dizziness. STOP taking this medication. Medications: Continue taking you medications as prescribed Continue taking meclizine around the clock for the next 2 days. Appointments: Follow up with PCP within 1 week, an appointment has been requested for you. ENT referral has been requested for you with a [facility] provider, you will be called to set up an appointment time. Pending Studies at Discharge: No Stand-Alone Forms: My [facility], Smoking Cessation Medications and DC Order Prescriptions: Continued tamsulosin 0.4 mg capsule 0.4 mg PO HS Eliquis 2.5 mg Tablet 2.5 mg PO AMHS cyanocobalamin (vitamin B-12) 1,000 mcg Tablet, Sublingual 1,000 mcg SUBLINGUAL QAM ipratropium bromide 42 mcg (0.06 %) spray,non-aerosol 2 spray intranasal TID PRN (Reason: allergies) Rx Instructions: administer into each nostril fluticasone propionate 50 mcg/actuation [place],Suspension 1 spray INTRANASAL QAM Rx Instructions: administer into each nostril loperamide 2 mg Tablet 2 mg PO QID PRN (Reason: Diarrhea) bupropion HCl 100 mg tablet sustained-release 12 hr 100 mg PO QAM torsemide 5 mg tablet 5 mg PO QAM Saccharomyces boulardii [Florastor] 250 mg Capsule 250 mg PO DAILY dutasteride 0.5 mg capsule 0.5 mg PO HS meclizine 25 mg tablet 25 mg PO TID PRN (Reason: Vertigo) pantoprazole 40 mg tablet,delayed release (DR/EC) 40 mg PO BIDM Rx Instructions: TAKE WITH AM AND PM MEALS lorazepam 1 mg tablet 0.5 - 1 mg PO BID PRN (Reason: Anxiety) [place] Pads 2 % swab 1 applic TOPICAL DAILY Rx Instructions: TO ROSACEA metoprolol succinate 25 mg tablet extended release 24 hr 12.5 mg PO QAM ergocalciferol (vitamin D2) 1,250 mcg (50,000 unit) capsule 50,000 unit PO WK Rx Instructions: Fridays hyoscyamine sulfate 0.125 mg Tablet, Sublingual 0.125 mg PO Q4 PRN (Reason: Abdominal Pain) doxycycline monohydrate 50 mg capsule 50 mg PO DAILY clindamycin phosphate 1 % Swab 1 applic TOPICAL DAILY PRN (Reason: FACE) spironolactone 25 mg Tablet 25 mg PO [id number] Rx Instructions: MONDAYS / WEDNESDAYS / FRIDAYS Discharge Orders: Discharge Order (Routine); Ordered 07/15/25 Ordered By: Suzy Bansal Admission Data Admit Date/Time: 07/14/25 16:37 Attending Provider: Janet Mayberry Admit Provider: Fidencio Ibarra Primary Care Provider: Eamon Felder Other Providers: Russ Castillo; [facility], [facility],Home Health; [facility] Other Interventions: Discharge Summary Assessment (RN) Last Done: 07/15/25 13:08 Supervising Physician Co-Signing Physician Notes I have seen and discussed the case with the collaborating advanced practitioner. I agree with the above DS.. I have reviewed and confirmed the patients medical history, the findings on physical examination, and the patients diagnosis and treatment plan with Nimisha ROLDAN and agree with the information documented. Patient with chronic dizziness. Meclizine was trialed with some improvement. Patient reports symptoms have been ongoing over a year. Offered to go to [facility], patient declined at this time. Chronic doxycycline was discontinued this visit and patient advised to follow up in case return of skin issues. Agree with above DS. I spent a total of 15 minutes coordinating, documenting, and providing care for this patient excluding time spent in the performance of separately billed services. All of the aforementioned completed outside of collaborating with the assigned advanced practitioner for a full treatment plan. I have reviewed the advanced practitioner's documentation, and I agree with, and take responsibility for the plan of care
[2025-07-15 13:12] VITALS: PULSE 71
== END 2025-07-15 13:50 | disposition home health service (06) | DRG 92 ==
LOC: 3N 13:48 → ED 13:48 → SUATTDRO 16:47 → 3N 22:26